=== PATIENT | male | born 1945 | race Caucasian/White ===

== ENCOUNTER 2025-06-25 18:16 | Inpatient (IN) | payer BC, OTHER ==
--- OUTSIDE RECORDS SUMMARY | 2025-06-25 18:31 | XMS REPORT | Continuity of Care Document ---
Author Name Unknown Address [address] [facility] [address] [place] [address] Organization [facility] [place] Address [address] [facility] 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 Role Phone Mik ANDREWS, Efren Villa Primary Care Physician JACK RIVAS Attending Clinician Unavailable ADDI VALENZUELA Attending Clinician Unavailable ODESSA LE Attending Clinician UnavailNarciso godwin Chi, MD Attending Clinician [phone] NARCISO MCCLAIN Attending Clinician Unavailable Bernadette Norton MD Attending Clinician + [phone] FAINA BRATON Attending Clinician UnavailMiki Cobian MD Attending Clinician [phone] Chaitanya Lewis MD Attending Clinician + [phone] Keyshawn ANDREWS PhD, Favian Attending Clinician [phone] Bret Newsome MD Attending Clinician [phone] Jack Rivas MD Attending Clinician [phone] Faina Barton MD Attending Clinician [phone] Rox Streeter MD Attending Clinician ROX STREETER Attending Clinician Marielena vailable Lab, Ang - Db Attending Clinician Unavailable Alirio Segundo MD Attending Clinician [phone] ALIRIO SEGUNDO Attending Clinician Unavailable Doctor Unassigned, Odum Attending Clinician U navailable Cox MD, Almita Attending Clinician [phone] Pob, Adc Lab Main Attending Clinician Kristen Faith MD Attending Clinician [phone] KRISTEN HUFF Attending Clinician ALMITA Rust Attending Clinician Unavailable CHAITANYA LEWIS Admitting Clinician BERNADETTE Simmons Admitting Clinician Tiny Norton MD, Bernadette Leon Admitting Clinician [phone] Chaitanya Lewis MD Admitting Clinician +- [phone] ALIRIO SEGUNDO Admitting Clinician Unavailable Payers Payer Name Policy Type Policy Number Effective Date Expirati on Date Source BCBS MEDICARE ADVANTAGE PPO Medicare [id number] 2024 00:00:00 [place] OUT OF STATE [id number] 2020 00:00:00 Problems Condition Name Condition Details Condition Category Status Onset Date Resolution Date Last Treatment Date Treating Clinician Comments Source 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 Disease Active 2023-09 00:00: 00 Shari Koenig 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 Disease Active 2023-09 00:00: 00 Shari Koenig Hemiparesi s affecting left side as late effect of stroke (CMS/HCC) Hemiparesi s affecting left side as late effect of stroke (CMS/HCC) Disease Active 2023-09 00:00: 00 Shari Koenig Neurogenic bowel Neurogenic bowel Disease Active 2023-09 00:00: 00 Shari Koenig Other abnormalit ies of gait and mobility Other abnormalit ies of gait and mobility Disease Active 2023-09 00:00: 00 Shari Koenig 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 Disease Active 2023-09 00:00: 00 Shari Koenig Other sleep disorders Other sleep disorders Disease Active 2023-09 00:00: 00 Shari Koenig Delirium Delirium Disease Active 2023-09 00:00: 00 Shari Koenig Dysphagia Dysphagia Disease Active 2023-09 00:00: 00 Shari Koenig Hyperlipid emia Hyperlipid emia Disease Active 2023-09 00:00: 00 Shari Koenig Primary hypertensi on Primary hypertensi on Disease Active 2023-09 00:00: 00 Shari Koenig Uncontroll ed type 2 diabetes mellitus with hyperglyce jayson Uncontroll ed type 2 diabetes mellitus with hyperglyce jayson Disease Active 2023-09 00:00: 00 Shari Koenig Diabetes mellitus Diabetes mellitus Disease Recurre nce 2023-09 00:00: 00 Shari Koenig 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 Disease Active 2023-09 00:00: 00 Shari Koenig Acute ischemic stroke Acute ischemic stroke Disease Active 2023-09 00:00: 00 Shari Koenig Cerebrovas cular accident (CVA) Cerebrovas cular accident (CVA) Disease Active 2023-09 00:00: 00 Shari Koenig Type 2 diabetes mellitus without complicati ons Type 2 diabetes mellitus without complicati ons Disease Active 11-18 00:00: 00 [facility] Mixed hyperlipid emia Mixed hyperlipid emia Disease Active [facility] Allergies, Adverse Reactions, Alerts Allergy Name Allergy Type Status Severity Reaction(s) Onset Date Inactive Date Treating Clinician Comments Source NO KNOWN ALLERGIE S Drug Class Active [facility] Social History Social Habit Start Date Stop Date Quantity Comments Source Gender identity Vinay rial [facility] History of tobacco use [facility] Sexual orientation [facility] History of Social function 2024-09-07 00:00:00 2024-09-07 00:00:00 [facility] Tobacco use and exposure 2024-09-05 00:00:00 2024-09-05 00:00:00 Smokeless tobacco non-user [facility] Alcohol intake 2023-03-24 00:00:00 2023-03-24 00:00:00 Ex-drinker (finding) [facility] Exposure to SARS-CoV-2 (event) 2023-01-01 00:00:00 2023-01-11 07:51:00 Not sure [facility] Cigarettes smoked current (pack per day) - Reported 2022-11-18 00:00:00 2022-11-18 00:00:00 [facility] Cigarette pack-years 2022-11-18 00:00:00 2022-11-18 00:00:00 [facility] Sex Assigned At 1945 00:00:00 1945 00:00:00 [facility] Smoking Status Start Date Stop Date Source Tobacco smoking consumption unknown [facility] c Ex-smoker 2024-09-05 00:00:00 2024-09-05 00:00:00 [facility] Medications Ordered Medication Name Filled Medication Name Start Date Stop Date Current Medication? Ordering Clinician Indication Dosage Frequency Signature (SIG) Comments Components Source mirtazapine 7.5 mg tablet 11-15 00:00: 00 Yes 1mg Gopal Medrano metformin 500 mg tablet 11-15 00:00: 00 Yes 1mg Gopal Medrano ipratropium 0.5 mg-albutero l 3 mg (2.5 mg base)/3 mL nebulizatio n soln 11-15 00:00: 00 Yes 3mg base)/3 mL Gopal Medrano losartan 50 mg tablet 11-15 00:00: 00 Yes 1mg Gopal Medrano atorvastati n 80 mg tablet 11-15 00:00: 00 Yes 1mg Gopal Medrano trazodone 50 mg tablet 3-05 00:00: 00 Yes 1mg Gopal Medrano sennosides 25 mg tablet -05 00:00: 00 Yes 1mg Gopal Medrano melatonin 3 MG tablet melatonin 3 MG tablet 1-15 00:00: 00 Yes 3mg 1 tablet by Per G Tube route at bedtime. Shari james [facility] insulin glargine (Lantus) 100 UNIT/ML injection insulin glargine (Lantus) 100 UNIT/ML injection 09-27 00:00: 00 09-27 23:59 :00 No 22U Inject 22 Units under the skin in the evening. Shari Koenig caffeine 200 MG caffeine 200 MG 09-27 00:00: 00 12-26 23:59 :00 No 100mg Take 0.5 tablets by mouth in the morning and 0.5 tablets at noon. Shari Koenig atorvastati n (Lipitor) 80 MG tablet atorvastati n (Lipitor) 80 MG tablet 09-27 00:00: 00 12-26 23:59 :00 No 80mg QD Take 1 tablet by mouth 1 time each day. Shari Koenig losartan (Cozaar) 50 MG tablet losartan (Cozaar) 50 MG tablet 09-27 00:00: 00 12-26 23:59 :00 No 75mg QD Take 1.5 tablets by mouth 1 time each day. Shari Koenig mirtazapine (Remeron) 7.5 MG tablet mirtazapine (Remeron) 7.5 MG tablet 09-27 00:00: 00 12-26 23:59 :00 No 7.5mg Take 1 tablet by mouth at bedtime. Shari Koenig polyethylen e glycol, PEG, 3350 (Miralax) 17 g packet polyethylen e glycol, PEG, 3350 (Miralax) 17 g packet 09-27 00:00: 00 12-26 23:59 :00 No 17g Q12H 17 g by Per G Tube route in the morning and 17 g in the evening. Shari Koenig ipratropium -albuterol (Duo-Neb) 0.5-2.5 mg/3 mL nebulizer solution ipratropium -albuterol (Duo-Neb) 0.5-2.5 mg/3 mL nebulizer solution 09-27 00:00: 00 12-26 23:59 :00 No 3mL Q6H Take 3 mL by nebulizati on every 6 hours if needed for wheezing. Shari Koenig modafinil (Provigil) 100 MG tablet modafinil (Provigil) 100 MG tablet 09-27 00:00: 00 10-27 23:59 :00 No [id number] 100mg Take 1 tablet by mouth in the morning and 1 tablet at noon. Shari Carvalho [facility] Aspirin Low Dose 81 MG chewable tablet Aspirin Low Dose 81 MG chewable tablet 09-27 00:00: 00 09-27 00:00 :00 No 324mg QD TAKE 4 TABLETS BY NASOGASTRI C ROUTE 1 TIME EACH DAY. Shari Carvalho [facility] aspirin 81 MG chewable tablet aspirin 81 MG chewable tablet 09-26 00:00: 00 09-27 00:00 :00 No 324mg QD 4 tablets by Nasogastri c route 1 time each day. Shari Carvalho [facility] caffeine 200 MG caffeine 200 MG 09-26 00:00: 00 09-27 00:00 :00 No 100mg Take 0.5 tablets by mouth in the morning and 0.5 tablets at noon. Shari Carvalho [facility] modafinil (Provigil) 100 MG tablet modafinil (Provigil) 100 MG tablet 09-26 00:00: 00 09-27 00:00 :00 No [id number] 100mg Take 1 tablet by mouth in the morning and 1 tablet at noon. Shari Carvalho [facility] losartan (Cozaar) 50 MG tablet losartan (Cozaar) 50 MG tablet 09-26 00:00: 00 09-27 00:00 :00 No 75mg QD Take 1.5 tablets by mouth 1 time each day. Shari Carvalho [facility] sennosides (Senokot) 8.6 MG tablet sennosides (Senokot) 8.6 MG tablet 09-25 00:00: 00 12-24 23:59 :00 No 8.6mg Take 1 tablet by mouth at bedtime. Shari Carvalho [facility] atorvastati n (Lipitor) 80 MG tablet atorvastati n (Lipitor) 80 MG tablet 09-25 00:00: 09-27 00:00 :00 No 80mg QD Take 1 tablet by mouth 1 time each day. Shari Koenig insulin glargine (Lantus) 100 UNIT/ML injection insulin glargine (Lantus) 100 UNIT/ML injection 09-25 00:00: 00 09-27 00:00 :00 No 22U Inject 22 Units under the skin in the evening. Shari Koenig mirtazapine (Remeron) 7.5 MG tablet mirtazapine (Remeron) 7.5 MG tablet 09-25 00:00: 00 09-27 00:00 :00 No 7.5mg Take 1 tablet by mouth at bedtime. Shari Carvalho Epic polyethylen e glycol, PEG, 3350 (Miralax) 17 g packet polyethylen e glycol, PEG, 3350 (Miralax) 17 g packet 09-25 00:00: 00 09-27 00:00 :00 No 17g Q12H 17 g by Per G Tube route in the morning and 17 g in the evening. Shari Koenig losartan (Cozaar) 25 MG tablet losartan (Cozaar) 25 MG tablet 09-25 00:00: 00 09-25 00:00 :00 No 75mg QD Take 3 tablets by mouth 1 time each day. Shari Koenig insulin lispro (Humalog, Admelog) injection 8 Units insulin lispro (Humalog, Admelog) injection 8 Units 09-20 08:00: 00 09-21 13:21 :59 No 137 8U 8 Units, Subcutaneo us, 3 times daily with meals, First dose (after last modificati on) on Wed09/20/24 at 0800, Please give pre-meal insulin after making sure he has atleast ate 50% of his meal as he is on 1:1 feeding , Indication s: Type 2 Diabetes Mellitus Shari Koenig insulin glargine (Lantus) pen 22 Units insulin glargine (Lantus) pen 22 Units 1- 18:00: 00 Yes 137 22U 22 Units, Subcutaneo us, Every evening, First dose (after last modificati on) on Wed09/19/24 at 1800, Indication s: Type 2 Diabetes Mellitus Shari Koenig modafinil (Provigil) tablet 100 mg modafinil (Provigil) tablet 100 mg 09-19 08:00: 00 Yes 100mg 100 mg, Oral, 2 times daily (04/24), First dose (after last modificati on) on Wed09/19/24 at 0800 Shari Koenig insulin glargine (Lantus) pen 25 Units insulin glargine (Lantus) pen 25 Units 09-18 18:00: 00 09-19 11:39 :37 No 137 25U 25 Units, Subcutaneo us, Every evening, First dose (after last modificati on) on Wed09/18/24 at 1800, Indication s: Type 2 Diabetes Mellitus Shari Koenig bisacodyl (Dulcolax) suppository 10 mg bisacodyl (Dulcolax) suppository 10 mg 09-15 18:00: 00 Yes 10mg 10 mg, Rectal, Every evening, First dose on Wed09/15/24 at 1800 Shari Koenig insulin lispro (Humalog, Admelog) injection 6 Units insulin lispro (Humalog, Admelog) injection 6 Units 09-15 17:00: 00 09-20 07:29 :12 No 137 6U 6 Units, Subcutaneo us, 3 times daily with meals, First dose (after last modificati on) on Wed09/15/24 at 1700, Please give pre-meal insulin after making sure he has atleast ate 50% of his meal as he is on 1:1 feeding , Indication s: Type 2 Diabetes Mellitus Shari Koenig caffeine tablet 100 mg caffeine tablet 100 mg 09-15 08:00: 00 Yes 100mg 100 mg, Oral, 2 times daily (04/24), First dose (after last modificati on) on Wed09/15/24 at 0800, Dose = mg of caffeine. (Order only half the usual caffeine citrate or caffeine-s odium benzoate dose) Shari Koenig mirtazapine (Remeron) tablet 15 mg mirtazapine (Remeron) tablet 15 mg 09-14 21:00: 00 Yes 15mg 15 mg, Oral, Nightly, First dose (after last modificati on) on Wed09/14/24 at 2100 Raymondyoanna jacob Carvalho [facility] insulin lispro (Humalog, Admelog) injection 8 Units insulin lispro (Humalog, Admelog) injection 8 Units 2023-09 08:00: 00 09-15 14:55 :48 No 137 8U 8 Units, Subcutaneo us, 3 times daily with meals, First dose (after last modificati on) on Wed09/11/24 at 0800, Please give pre-meal insulin after making sure he has atleast ate 50% of his meal as he is on 1:1 feeding , Indication s: Type 2 Diabetes Mellitus Raymondyoanna jacob Carvalho Epic insulin lispro (Humalog, Admelog) injection 7 Units insulin lispro (Humalog, Admelog) injection 7 Units 2023-09 12:00: 00 09-11 07:37 :18 No 137 7U 7 Units, Subcutaneo us, 3 times daily with meals, First dose (after last modificati on) on Wed09/10/24 at 1200, Please give pre-meal insulin after making sure he has atleast ate 50% of his meal as he is on 1:1 feeding , Indication s: Type 2 Diabetes Mellitus Raymondyoanna jacob Carvalho Epic insulin lispro (Humalog, Admelog) injection 8 Units insulin lispro (Humalog, Admelog) injection 8 Units 2023-09 08:00: 00 09-10 08:26 :42 No 137 8U 8 Units, Subcutaneo us, 3 times daily with meals, First dose (after last modificati on) on Wed09/09/24 at 0800, Please give pre-meal insulin after making sure he has atleast ate 50% of his meal as he is on 1:1 feeding , Indication s: Type 2 Diabetes Mellitus Shari Carvalho Epic insulin lispro (Humalog, Admelog) injection 5 Units insulin lispro (Humalog, Admelog) injection 5 Units 2023-09 17:00: 00 09-09 07:49 :08 No 137 5U 5 Units, Subcutaneo us, 3 times daily with meals, First dose (after last modificati on) on Wed09/08/24 at 1700, Please give pre-meal insulin after making sure he has atleast ate 50% of his meal as he is on 1:1 feeding , Indication s: Type 2 Diabetes Mellitus Shari Carvalho [facility] Boost Glucose Control liquid 237 mL Boost Glucose Control liquid 237 mL 2023-09 17:00: 00 Yes 1{conta iner} 237 mL (1 Container) , Oral, 3 times daily with meals, First dose on Wed09/07/24 at 1700 Shari Carvalho [facility] insulin lispro (Humalog, Admelog) injection 8 Units insulin lispro (Humalog, Admelog) injection 8 Units 2023-09 12:00: 00 09-08 14:00 :24 No 137 8U 8 Units, Subcutaneo us, 3 times daily with meals, First dose (after last modificati on) on Wed09/07/24 at 1200, Please give pre-meal insulin after making sure he has atleast ate 50% of his meal as he is on 1:1 feeding , Indication s: Type 2 Diabetes Mellitus Shari Carvalho [facility] losartan (Cozaar) tablet 75 mg losartan (Cozaar) tablet 75 mg 2023-09 17:00: 00 Yes 75mg QD 75 mg, Oral, Daily, First dose (after last modificati on) on Wed09/06/24 at 1700, HOLD for SBP<120 Shari Carvalho [facility] atorvastati n (Lipitor) tablet 80 mg atorvastati n (Lipitor) tablet 80 mg 2023-09 08:30: 00 Yes 80mg QD 80 mg, Oral, Daily, First dose (after last modificati on) on Wed09/06/24 at 0830 Shari Carvalho [facility] aspirin chewable tablet 324 mg aspirin chewable tablet 324 mg 2023-09 08:30: 00 Yes 324mg QD 324 mg, Nasogastri c, Daily, First dose (after last modificati on) on Wed09/06/24 at 0830, Crush tablet Sahri Koenig amLODIPine (Norvasc) tablet 10 mg amLODIPine (Norvasc) tablet 10 mg 2023-09 08:30: 00 Yes 10mg QD 10 mg, Oral, Daily, First dose (after last modificati on) on Wed09/06/24 at 0830, Hold for BP less than 110/60 mg , On hold since Wed09/19/2024 at 1129 until manually unheld Shari Koenig modafinil (Provigil) tablet 100 mg modafinil (Provigil) tablet 100 mg 2023-09 08:30: 00 09-18 20:38 :05 No 100mg QD 100 mg, Oral, Daily, First dose (after last modificati on) on Wed09/06/24 at 0830 Shrai Koenig caffeine tablet 100 mg caffeine tablet 100 mg 2023-09 08:30: 00 09-14 18:55 :28 No 100mg QD 100 mg, Oral, Daily, First dose (after last modificati on) on Wed09/06/24 at 0830, Dose = mg of caffeine. (Order only half the usual caffeine citrate or caffeine-s odium benzoate dose) Shari Koenig clopidogrel (Plavix) tablet 75 mg clopidogrel (Plavix) tablet 75 mg 2023-09 08:30: 00 09-09 08:27 :00 No 1737 75mg QD 75 mg, Nasogastri c, Daily, First dose (after last modificati on) on Wed09/06/24 at 0830, For 4 doses, Crush tablet, Indication s: Cerebrovas cular Accident Shari Koenig insulin lispro (Humalog, Admelog) injection 8 Units insulin lispro (Humalog, Admelog) injection 8 Units 2023-09 08:00: 00 09-07 10:20 :22 No 8U 8 Units, Subcutaneo us, 3 times daily with meals, First dose (after last modificati on) on Wed09/06/24 at 0800 Shari Koenig caffeine 200 MG caffeine 200 MG 2023-09 00:00: 00 09-27 00:00 :00 No 100mg QD Take 0.5 tablets by mouth 1 time each day. Shari Koenig heparin injection 5,000 Units heparin injection 5,000 Units 2023-09 22:00: 00 Yes 5000U Q8H 5,000 Units, Subcutaneo us, Every 8 hours, First dose (after last modificati on) on Wed09/05/24 at 2200 Shari Koenig sennosides (Senokot) tablet 8.6 mg sennosides (Senokot) tablet 8.6 mg 2023-09 21:00: 00 Yes 1{tbl} 8.6 mg (1 tablet), Oral, Nightly, First dose (after last modificati on) on Wed09/05/24 at 2100 Shari Koenig mirtazapine (Remeron) tablet 7.5 mg mirtazapine (Remeron) tablet 7.5 mg 2023-09 21:00: 00 09-14 16:46 :33 No 7.5mg 7.5 mg, Oral, Nightly, First dose (after last modificati on) on Wed09/05/24 at 2100 Shari Koenig melatonin tablet 3 mg melatonin tablet 3 mg 2023-09 20:00: 00 Yes 3mg 3 mg, Per G Tube, Nightly, First dose (after last modificati on) on Wed09/05/24 at 2000 Shari Koenig ipratropium -albuterol (Duo-Neb) 0.5-2.5 mg/3 mL nebulizer solution 3 mL ipratropium -albuterol (Duo-Neb) 0.5-2.5 mg/3 mL nebulizer solution 3 mL 2023-09 20:00: 00 Yes 3mL Q.25D 3 mL, Nebulizati on, Every 6 hours RT, First dose (after last modificati on) on Wed09/05/24 at 2000 Shari Koenig polyethylen e glycol (PEG) 3350 (Miralax) packet 17 g polyethylen e glycol (PEG) 3350 (Miralax) packet 17 g 2023-09 19:15: 00 Yes 17g Q12H 17 g, Per G Tube, Every 12 hours, First dose (after last modificati on) on Wed09/05/24 at 1915, Dissolve 17 g in 120 to 240 mL (4 to 8 ounces) of beverage. Shari Carvalho Epic Docusate Sodium oral liquid 100 mg Docusate Sodium oral liquid 100 mg 2023-09 19:15: 00 Yes 100mg Q12H 100 mg, Per G Tube, Every 12 hours, First dose (after last modificati on) on Wed09/05/24 at 191, OK to hold if loose stool Shari Koenig insulin glargine (Lantus) pen 30 Units insulin glargine (Lantus) pen 30 Units 2023-09 18:00: 00 09-18 09:37 :16 No 137 30U 30 Units, Subcutaneo us, Every evening, First dose (after last modificati on) on Wed09/05/24 at 1800, Indication s: Type 2 Diabetes Mellitus Shari Carvalho [facility] insulin lispro (HumaLOG, Admelog) injection 3-12 Units insulin lispro (HumaLOG, Admelog) injection 3-12 Units 2023-09 17:46: 34 Yes 137 3U [id number] 3D 3-12 Units, Subcutaneo us, 3 times daily PRN, high blood sugar, with meals, Starting on Wed09/05/24 at 1746, For BG < 70, follow hypoglycem ia protocol and notify ordering provider. If patient can eat or drink, give oral carbohydra te as ordered per hypoglycem ia protocol. If patient NPO, give dextrose 50 % IV as ordered per hypoglycem ia protocol. If NPO and no IV access, give glucagon IM as ordered per hypoglycem ia protocol. Check BG every 15 minutes and repeat treatment if continued BG < 80., Correction Insulin Dosing: (DO NOT CHANGE DEFAULT SELECTION/ VALUES): Medium, BG < 70 instructio ns: Follow Hypoglycem ia Orders, BG 70-149 instructio ns: No Dose Needed, BG 150-199: 3, BG 200-249: 6, BG 250-299: 9, BG >/= 300: 12, BG > 300 instructio ns: Contact Provider, Indication s: Type 2 Diabetes Mellitus Shari Koenig glucagon injection 1 mg glucagon injection 1 mg 2023-09 17:46: 06 Yes 1mg 1 mg, Intramuscu lar, As needed, For BG < 70 mg/dL if no IV access and patient is either Unconsciou s, unable to swallow or npo, Starting on Wed09/05/24 at 1746, For BG < 70 mg/dL if no IV access and patient is either Unconsciou s, unable to swallow or npo and notify MD. Shari Koenig dextrose 50 % solution 12.5 g dextrose 50 % solution 12.5 g 2023-09 17:46: 06 Yes 244 12.5g 12.5 g, Intravenou s, As needed, low blood sugar, if Blood Glucose 51- 69 mg/dL, Starting on Wed09/05/24 at 1746, For BG 51-69 mg/dL and patient UNCONSCIOU S OR UNABLE TO SWALLOW OR NPO: Give 25 mL of D50W IV push and notify MD., Indication s: Hypoglycem ia Shari Koenig bisacodyl (Dulcolax) suppository 10 mg bisacodyl (Dulcolax) suppository 10 mg 2023-09 17:45: 25 Yes 10mg QD 10 mg, Rectal, Nightly PRN, constipati on, Starting on Wed09/05/24 at 1745 Shari Koenig magnesium hydroxide (Milk of Magnesia) 400 MG/5ML suspension 30 mL magnesium hydroxide (Milk of Magnesia) 400 MG/5ML suspension 30 mL 2023-09 17:45: 25 Yes 30mL Q24H 30 mL, Oral, Daily PRN, constipati on, Starting on Wed09/05/24 at 1745, Follow dose with 8 oz of water. Shari Koenig levETIRAcet am (Keppra) injection 1,500 mg levETIRAcet am (Keppra) injection 1,500 mg 2023-09 17:45: 24 Yes 1500mg Shari Koenig midazolam (Versed) injection 5 mg midazolam (Versed) injection 5 mg 2023-09 17:45: 24 Yes 5mg Shari Carvalho [facility] sodium chloride (NS) 0.9 % flush 10 mL sodium chloride (NS) 0.9 % flush 10 mL 2023-09 17:45: 24 Yes 10mL Shari Carvalho [facility] aspirin EC 81 MG EC tablet aspirin EC 81 MG EC tablet 2023-09 17:06: 09 09-05 00:00 :00 No 81mg QD Take 81 mg by mouth 1 time each day. Shari Carvalho [facility] hydroCHLORO thiazide (HYDRODiuri l) 25 MG tablet hydroCHLORO thiazide (HYDRODiuri l) 25 MG tablet 2023-09 17:06: 09 09-05 00:00 :00 No 25mg QD Take 25 mg by mouth 1 time each day. Shari Carvalho [facility] insulin glargine (Lantus) 100 UNIT/ML injection insulin glargine (Lantus) 100 UNIT/ML injection 2023-09 17:06: 09 09-05 00:00 :00 No 25U QD Inject 25 Units under the skin 1 time each day. Shari Carvalho [facility] metFORMIN (Glucophage ) 500 MG tablet metFORMIN (Glucophage ) 500 MG tablet 2023-09 17:06: 09 09-05 00:00 :00 No 500mg Take 500 mg by mouth in the morning and 500 mg at noon and 500 mg in the evening. Take with meals. Shari Carvalho [facility] metFORMIN, OSM, (Fortamet) 500 MG 24 hr tablet metFORMIN, OSM, (Fortamet) 500 MG 24 hr tablet 2023-09 17:06: 07 08-25 00:00 :00 No 500mg Take 500 mg by mouth in the evening. Take with meals.. Do not crush, chew, or split. Shari Koenig insulin lispro (Humalog, Admelog) injection 8 Units insulin lispro (Humalog, Admelog) injection 8 Units 2023-09 08:00: 00 Yes 8U 8 Units, Subcutaneo us, 3 times daily with meals, First dose on Wed09/05/24 at 0800 Shari Koenig clopidogrel (Plavix) 75 MG tablet clopidogrel (Plavix) 75 MG tablet 2023-09 00:00: 00 09-27 00:00 :00 No 75mg QD Take 1 tablet by mouth 1 time each day. Shari Koenig amLODIPine (Norvasc) 10 MG tablet amLODIPine (Norvasc) 10 MG tablet 2023-09 00:00: 00 09-27 00:00 :00 No 10mg QD Take 1 tablet by mouth 1 time each day. Shari Koenig aspirin 81 MG chewable tablet aspirin 81 MG chewable tablet 2023-09 00:00: 00 09-27 00:00 :00 No 324mg QD 4 tablets by Nasogastri c route 1 time each day. Shari Koenig melatonin 3 MG tablet melatonin 3 MG tablet 2023-09 00:00: 00 09-27 00:00 :00 No 3mg 1 tablet by Per G Tube route at bedtime. Shari Koenig modafinil (Provigil) 100 MG tablet modafinil (Provigil) 100 MG tablet 2023-09 00:00: 00 09-27 00:00 :00 No [id number] 100mg QD Take 1 tablet by mouth 1 time each day. Shari Koenig atorvastati n (Lipitor) 80 MG tablet atorvastati n (Lipitor) 80 MG tablet 2023-09 00:00: 00 09-25 00:00 :00 No 80mg QD Take 1 tablet by mouth 1 time each day. Shari Koenig mirtazapine (Remeron) 7.5 MG tablet mirtazapine (Remeron) 7.5 MG tablet 2023-09 00:00: 00 09-25 00:00 :00 No 7.5mg Take 1 tablet by mouth at bedtime. Shari Koenig polyethylen e glycol, PEG, 3350 (Miralax) 17 g packet polyethylen e glycol, PEG, 3350 (Miralax) 17 g packet 2024-1 2-24 00:00: 00 09-25 00:00 :00 No 17g Q12H 17 g by Per G Tube route in the morning and 17 g in the evening. Do all this for 3 days. Raymondyoanna jacob Deven Epic insulin glargine (Lantus) 100 UNIT/ML injection insulin glargine (Lantus) 100 UNIT/ML injection 2023-09 00:00: 00 09-25 00:00 :00 No 30U Inject 30 Units under the skin in the evening. Raymondyoanna jacob RossSophia Epic insulin glargine (Lantus) 100 UNIT/ML injection insulin glargine (Lantus) 100 UNIT/ML injection 2023-09 00:00: 00 09-05 00:00 :00 No 36U Inject 36 Units under the skin in the evening. Shari Carvalho Epic insulin lispro (HumaLOG, Admelog) 100 unit/ml injection insulin lispro (HumaLOG, Admelog) 100 unit/ml injection 2023-09 00:00: 00 09-05 00:00 :00 No 2U [id number] 3D Inject 2-8 Units under the skin 3 times a day as needed for high blood sugar (with meals). See After Visit Summary for instructio ns on how to take your insulin. Raymondyoanna jacob Deven Epic insulin lispro (Humalog, Admelog) 100 UNIT/ML injection insulin lispro (Humalog, Admelog) 100 UNIT/ML injection 2023-09 00:00: 00 09-05 00:00 :00 No 8U Inject 8 Units under the skin in the morning and 8 Units at noon and 8 Units in the evening. Inject with meals. Shari Carvalho Epic insulin glargine (Lantus) injection 36 Units insulin glargine (Lantus) injection 36 Units 2023-09 18:00: 00 Yes 36U 36 Units, Subcutaneo us, Every evening, First dose (after last modificati on) on Wed09/04/24 at 1800 Shari Carvalho Epic dextrose 50 % solution 12.5 g dextrose 50 % solution 12.5 g 2023-09 17:07: 56 Yes 12.5g 12.5 g, Intravenou s, As needed, low blood sugar, if Blood Glucose 51- 69 mg/dL, Starting on Wed09/04/24 at 1707, For BG 51-69 mg/dL and patient UNCONSCIOU S OR UNABLE TO SWALLOW OR NPO: Give 25 mL of D50W IV push and notify MD. Shari Carvalho Epic insulin lispro (HumaLOG, Admelog) injection 2-8 Units insulin lispro (HumaLOG, Admelog) injection 2-8 Units 2023-09 17:07: 36 Yes 2U [id number] 3D 2-8 Units, Subcutaneo us, 3 times daily PRN, high blood sugar, with meals, Starting on Wed09/04/24 at 1707, For BG < 70, follow hypoglycem ia protocol and notify ordering provider. If patient can eat or drink, give oral carbohydra te as ordered per hypoglycem ia protocol. If patient NPO, give dextrose 50 % IV as ordered per hypoglycem ia protocol. If NPO and no IV access, give glucagon IM as ordered per hypoglycem ia protocol. Check BG every 15 minutes and repeat treatment if continued BG < 80., Correction Insulin Dosing: (DO NOT CHANGE DEFAULT SELECTION/ VALUES): Starting, BG < 70 instructio ns: Follow Hypoglycem ia Orders, BG 70-149 instructio ns: No Dose Needed, BG 150-199: 2, BG 200-249: 4, BG 250-299: 6, BG >/= 300: 8, BG > 300 instructio ns: Contact Provider Sahri Koenig mirtazapine (Remeron) tablet 7.5 mg mirtazapine (Remeron) tablet 7.5 mg 2023-09 21:00: 00 Yes 7.5mg 7.5 mg, Oral, Nightly, First dose on 09/03/24 at 2100 Shari Carvalho Epic insulin glargine (Lantus) injection 48 Units insulin glargine (Lantus) injection 48 Units 2023-09 18:00: 00 09-04 11:43 :36 No 48U 48 Units, Subcutaneo us, Every evening, First dose (after last modificati on) on 09/03/24 at 1800 Shari Koenig insulin lispro (Humalog, Admelog) injection 18 Units insulin lispro (Humalog, Admelog) injection 18 Units 2023-09 17:00: 00 09-04 11:44 :13 No 18U 18 Units, Subcutaneo us, 3 times daily with meals, First dose (after last modificati on) on 09/03/24 at 1700 Shari Koenig aspirin 81 MG chewable tablet aspirin 81 MG chewable tablet 2023-09 00:00: 00 09-05 00:00 :00 No 324mg QD 4 tablets by Nasogastri c route 1 time each day. Shari Koenig amLODIPine (Norvasc) 10 MG tablet amLODIPine (Norvasc) 10 MG tablet 2023-09 00:00: 00 09-05 00:00 :00 No 10mg QD Take 1 tablet by mouth 1 time each day. Shari Koenig atorvastati n (Lipitor) 80 MG tablet atorvastati n (Lipitor) 80 MG tablet 2023-09 00:00: 00 09-05 00:00 :00 No 80mg QD Take 1 tablet by mouth 1 time each day. Shari Koenig clopidogrel (Plavix) 75 MG tablet clopidogrel (Plavix) 75 MG tablet 2023-09 00:00: 00 09-05 00:00 :00 No 75mg QD Take 1 tablet by mouth 1 time each day. Shari Koenig modafinil (Provigil) 100 MG tablet modafinil (Provigil) 100 MG tablet 2023-09 00:00: 00 09-05 00:00 :00 No [id number] 100mg QD Take 1 tablet by mouth 1 time each day. Shari Koenig mirtazapine (Remeron) 7.5 MG tablet mirtazapine (Remeron) 7.5 MG tablet 2023-09 00:00: 00 09-05 00:00 :00 No 7.5mg Take 1 tablet by mouth at bedtime. Shari Carvalho Epic insulin glargine (Lantus) 100 UNIT/ML injection insulin glargine (Lantus) 100 UNIT/ML injection 2023-09 00:00: 00 09-05 00:00 :00 No 48U Inject 48 Units under the skin in the evening. Shari Carvalho Epic insulin lispro (Humalog, Admelog) 100 UNIT/ML injection insulin lispro (Humalog, Admelog) 100 UNIT/ML injection 2023-09 00:00: 00 09-05 00:00 :00 No 18U Inject 18 Units under the skin in the morning and 18 Units at noon and 18 Units in the evening. Inject with meals. Shari Carvalho Epic insulin glargine (Lantus) 100 UNIT/ML injection insulin glargine (Lantus) 100 UNIT/ML injection 2023-09 00:00: 00 09-03 00:00 :00 No 44U Inject 44 Units under the skin in the evening. Shari Carvalho Epic insulin lispro (Humalog, Admelog) 100 UNIT/ML injection insulin lispro (Humalog, Admelog) 100 UNIT/ML injection 2023-09 00:00: 00 09-03 00:00 :00 No 14U Inject 14 Units under the skin in the morning and 14 Units at noon and 14 Units in the evening. Inject with meals. Shari Carvalho [facility] caffeine half tablet 100 mg caffeine half tablet 100 mg 2023-09 09:00: 00 Yes 100mg QD 100 mg, Oral, Daily, First dose on 09/02/24 at 0900, Dose = mg of caffeine. (Order only half the usual caffeine citrate or caffeine-s odium benzoate dose) Shari Koenig losartan (Cozaar) 25 MG tablet losartan (Cozaar) 25 MG tablet 2023-09 00:00: 00 09-25 00:00 :00 No 75mg QD Take 3 tablets by mouth 1 time each day. Shari Carvalho Epic polyethylen e glycol, PEG, 3350 (Miralax) 17 g packet polyethylen e glycol, PEG, 3350 (Miralax) 17 g packet 2023-09 00:00: 00 09-05 00:00 :00 No 17g Q12H 17 g by Per G Tube route in the morning and 17 g in the evening. Do all this for 3 days. Shari Koenig insulin glargine (Lantus) 100 UNIT/ML injection insulin glargine (Lantus) 100 UNIT/ML injection 2023-09 00:00: 00 09-03 00:00 :00 No 40U Inject 40 Units under the skin in the evening. Shari Koenig insulin lispro (Humalog, Admelog) 100 UNIT/ML injection insulin lispro (Humalog, Admelog) 100 UNIT/ML injection 2023-09 00:00: 00 09-03 00:00 :00 No 10U Inject 10 Units under the skin in the morning and 10 Units at noon and 10 Units in the evening. Inject with meals. Shari Koenig QUEtiapine (SEROquel) half tablet 12.5 mg QUEtiapine (SEROquel) half tablet 12.5 mg 2023-09 21:00: 00 09-02 12:54 :46 No 12.5mg 12.5 mg, Oral, Nightly, First dose (after last modificati on) on Wed09/01/24 at 2100, If ordered by enteral tube route, hold tube feedings for 30 minutes before administra tion; flush with 25 mL of sterile water. After administra tion of this medication , follow with a 50 mL flush of sterile water. Restart tube feedings after drug administra tion as ordered. Shari Koenig melatonin tablet 3 mg melatonin tablet 3 mg 2023-09 20:00: 00 Yes 3mg 3 mg, Per G Tube, Nightly, First dose (after last modificati on) on Wed09/01/24 at 2000 Shari Koenig iohexol (OMNIPaque) 350 MG/ML injection 70 mL iohexol (OMNIPaque) 350 MG/ML injection 70 mL 2023-09 17:16: 03 08-31 17:16 :00 No 70mL 70 mL, Intravenou s, Once in imaging, Starting on Wed08/31/24 at 1716, For 1 dose Shari Koenig clopidogrel (Plavix) tablet 75 mg clopidogrel (Plavix) tablet 75 mg 2023-09 15:43: 47 Yes 75mg QD 75 mg, Nasogastri c, Daily, First dose (after last modificati on) on Wed08/31/24 at 1545, Crush tablet Shari Koenig Ensure Enlive liquid 1 Container Ensure Enlive liquid 1 Container 2023-09 10:45: 00 Yes 1{conta iner} 1 Container, Oral, 3 times daily with meals, First dose on Wed08/31/24 at 1045 Shari Koenig QUEtiapine (SEROquel) half tablet 12.5 mg QUEtiapine (SEROquel) half tablet 12.5 mg 2023-09 07:30: 00 Yes 12.5mg 12.5 mg, Oral, Daily before breakfast, First dose on Wed08/31/24 at 0730, If ordered by enteral tube route, hold tube feedings for 30 minutes before administra tion; flush with 25 mL of sterile water. After administra tion of this medication , follow with a 50 mL flush of sterile water. Restart tube feedings after drug administra tion as ordered., On hold since Wed09/01/2024 at 0650 until manually unheld Shari Koenig sodium chloride 0.9 % bolus 500 mL sodium chloride 0.9 % bolus 500 mL 2023-09 03:45: 00 08-31 04:53 :00 No 500mL 500 mL, Intravenou s, at 500 mL/hr, Administer over 1 Hours, Once, On Wed08/31/24 at 0345, For 1 dose Shari Koenig acetaminoph en (Tylenol) suppository 650 mg acetaminoph en (Tylenol) suppository 650 mg 2023-09 00:12: 41 Yes 650mg Q6H 650 mg, Rectal, Every 6 hours PRN, mild pain (1-3), fever, Starting on Wed08/31/24 at 0012 Shari Koenig QUEtiapine (SEROquel) tablet 25 mg QUEtiapine (SEROquel) tablet 25 mg 2023-09 21:00: 00 09-01 15:56 :07 No 25mg 25 mg, Oral, Nightly, First dose on Wed08/30/24 at 2100 Shari Koenig QUEtiapine (SEROquel) half tablet 12.5 mg QUEtiapine (SEROquel) half tablet 12.5 mg 2023-09 11:10: 00 08-30 13:15 :00 No 12mg 12.5 mg (rounded from 12 mg), Oral, Once, On Wed08/30/24 at 1115, For 1 dose, If ordered by enteral tube route, hold tube feedings for 30 minutes before administra tion; flush with 25 mL of sterile water. After administra tion of this medication , follow with a 50 mL flush of sterile water. Restart tube feedings after drug administra tion as ordered. Shari Koenig modafinil (Provigil) tablet 100 mg modafinil (Provigil) tablet 100 mg 2023-09 09:00: 00 Yes 100mg QD 100 mg, Oral, Daily, First dose on Wed08/30/24 at 0900 Shari Koenig ipratropium -albuterol (Duo-Neb) 0.5-2.5 mg/3 mL nebulizer solution 3 mL ipratropium -albuterol (Duo-Neb) 0.5-2.5 mg/3 mL nebulizer solution 3 mL 2023-09 22:00: 00 Yes 3mL Q.25D 3 mL, Nebulizati on, Every 6 hours RT, First dose (after last modificati on) on Wed08/29/24 at 2200 Shari Koenig melatonin tablet 10 mg melatonin tablet 10 mg 2023-09 20:00: 00 09-01 15:56 :07 No 10mg 10 mg, Per G Tube, Nightly, First dose (after last modificati on) on Wed08/29/24 at 2000 Shari Koenig dextrose 5 % and sodium chloride 0.9 % infusion dextrose 5 % and sodium chloride 0.9 % infusion 2023-09 01:30: 00 09-04 12:51 :28 No 75mL/h 75 mL/hr, Intravenou s, Continuous , Starting on Wed08/29/24 at 0130 Shari Koenig losartan (Cozaar) tablet 75 mg losartan (Cozaar) tablet 75 mg 2023-09 17:00: 00 Yes 75mg QD 75 mg, Oral, Daily, First dose (after last modificati on) on Wed08/28/24 at 1700, HOLD for SBP<110 Shari Koenig losartan (Cozaar) tablet 25 mg losartan (Cozaar) tablet 25 mg 2023-09 11:15: 00 Yes 25mg 25 mg, Oral, Once, On Wed08/28/24 at 1115, For 1 dose Shari Koenig labetalol injection 10 mg labetalol injection 10 mg 2023-09 12:49: 40 Yes 10mg 10 mg, Intravenou s, Every 10 min PRN, high blood pressure, Starting on Wed08/27/24 at 1249, For sBP>180 or dBP>105 Notify MD after 1 dose Shari Koenig losartan (Cozaar) tablet 50 mg losartan (Cozaar) tablet 50 mg 2023-09 17:00: 00 08-28 11:09 :16 No 50mg QD 50 mg, Oral, Daily, First dose (after last modificati on) on Wed08/26/24 at 1700, HOLD for SBP<110 Shari Koenig aspirin chewable tablet 324 mg aspirin chewable tablet 324 mg 2023-09 09:00: 00 Yes 324mg QD 324 mg, Nasogastri c, Daily, First dose (after last modificati on) on Wed08/26/24 at 0900, Crush tablet Shari Koenig famotidine (Pepcid) tablet 20 mg famotidine (Pepcid) tablet 20 mg 2023-09- 21:00: 00 08-28 11:10 :48 No 20mg Q.5D 20 mg, Nasogastri c, Every 12 hours scheduled, First dose on Wed08/25/24 at 2100 Shari Koenig amLODIPine (Norvasc) tablet 10 mg amLODIPine (Norvasc) tablet 10 mg 2023-09 09:00: 00 Yes 10mg QD 10 mg, Oral, Daily, First dose (after last modificati on) on Wed08/25/24 at 0900 Shari Koenig magnesium sulfate in D5W IVPB 1 g magnesium sulfate in D5W IVPB 1 g 2023-09 07:15: 00 08-25 09:47 :00 No 1g 1 g, Intravenou s, at 100 mL/hr, Administer over 1 Hours, Once, On Wed08/25/24 at 0715, For 1 dose Shari Koenig cefTRIAXone (Rocephin) 1 g in sterile water injection cefTRIAXone (Rocephin) 1 g in sterile water injection 2023-09 21:45: 00 08-27 22:40 :00 No 1g 1 g, Intravenou s, Administer over 5 Minutes, Every 24 hours, First dose on Wed08/23/24 at 2145, For 5 days, Reconstitu te vial with 10 mL sterile water for injection. Prepare dose at bedside immediatel y prior to administra tion. Reconstitu tion: Shake immediatel y and vigorously . Withdraw entire contents and give IV push slowly over specified time., Suspected Indication (Select all that apply): Pneumonia Shari Koenig losartan (Cozaar) tablet 50 mg losartan (Cozaar) tablet 50 mg 2023-09 04:30: 00 08-25 10:04 :02 No 50mg QD 50 mg, Oral, Daily, First dose (after last modificati on) on Wed08/23/24 at 0430, HOLD for SBP<110 Shari Koenig amLODIPine (Norvasc) tablet 5 mg amLODIPine (Norvasc) tablet 5 mg 2023-09 02:00: 00 08-24 17:31 :05 No 5mg QD 5 mg, Oral, Daily, First dose on Wed08/23/24 at 0200 Shari Koenig insulin NPH-insulin regular (HumuLIN, NovoLIN) (70-30) 100 UNIT/ML injection 15 Units insulin NPH-insulin regular (HumuLIN, NovoLIN) (70-30) 100 UNIT/ML injection 15 Units 2023-0910 22:00: 00 09-02 13:19 :56 No 15U Q6H 15 Units, Subcutaneo us, Every 6 hours, First dose (after last modificati on) on Wed08/22/24 at 2200 Memyoanna Rossann Epic melatonin tablet 5 mg melatonin tablet 5 mg 2023-09 21:00: 22 08-28 11:12 :08 No 5mg QD 5 mg, Per G Tube, Nightly PRN, sleep, Starting on Wed08/22/24 at 2100 Memyoanna Rossann Epic losartan (Cozaar) tablet 25 mg losartan (Cozaar) tablet 25 mg 2023-09 20:45: 00 Yes 25mg 25 mg, Per G Tube, Once, On Wed08/22/24 at 2045, For 1 dose Shari Rossann Epic insulin NPH-insulin regular (HumuLIN, NovoLIN) (70-30) 100 UNIT/ML injection 11 Units insulin NPH-insulin regular (HumuLIN, NovoLIN) (70-30) 100 UNIT/ML injection 11 Units 2023-09 10:00: 00 08-22 17:54 :26 No 11U Q6H 11 Units, Subcutaneo us, Every 6 hours, First dose (after last modificati on) on Wed08/22/24 at 1000 Shari Rossann Epic losartan (Cozaar) tablet 25 mg losartan (Cozaar) tablet 25 mg 2023-09 04:15: 00 Yes 25mg 25 mg, Per G Tube, Once, On Wed08/22/24 at 0415, For 1 dose Shari Carvalho Epic melatonin tablet 3 mg melatonin tablet 3 mg 2023-09 20:01: 49 08-22 21:00 :51 No 3mg QD 3 mg, Oral, Nightly PRN, sleep, Starting on Wed08/21/24 at 2001 Memyoanna Carvalho Epic insulin NPH-insulin regular (HumuLIN, NovoLIN) (70-30) 100 UNIT/ML injection 7 Units insulin NPH-insulin regular (HumuLIN, NovoLIN) (70-30) 100 UNIT/ML injection 7 Units 2023-09 16:00: 00 08-22 06:53 :41 No 7U Q6H 7 Units, Subcutaneo us, Every 6 hours, First dose (after last modificati on) on Wed08/21/24 at 1600 Shari Koenig Fibersource HN liquid Fibersource HN liquid 2023-09 11:30: 00 Yes Nasogastri c, at 80 mL/hr, Continuous , Starting on Wed08/21/24 at 1130, Administer enteral tube feeding as follows: Standard Progressio n: Initiate at 20 mL/hr and increase by 20 mL/hr evry 4 hours. Refer to the Rate field for Goal Rate , On hold since Wed09/02/2024 at 1144 until manually unheld Shari Koenig insulin NPH-insulin regular (HumuLIN, NovoLIN) (70-30) 100 UNIT/ML injection 4 Units insulin NPH-insulin regular (HumuLIN, NovoLIN) (70-30) 100 UNIT/ML injection 4 Units 2023-09 10:00: 00 08-21 14:39 :46 No 4U Q6H 4 Units, Subcutaneo us, Every 6 hours, First dose (after last modificati on) on Wed08/21/24 at 1000 Shari Koenig QUEtiapine (SEROquel) tablet 25 mg QUEtiapine (SEROquel) tablet 25 mg 2023-09 16:00: 00 08-20 15:26 :00 No 25mg 25 mg, Nasogastri c, Once, On Wed08/20/24 at 1600, For 1 dose, Crush tablet Shari Koenig heparin injection 5,000 Units heparin injection 5,000 Units 2023-09 14:00: 00 Yes 5000U Q8H 5,000 Units, Subcutaneo us, Every 8 hours, First dose on Wed08/20/24 at 1400 Shari Koenig clopidogrel (Plavix) tablet 75 mg clopidogrel (Plavix) tablet 75 mg 2023-09 14:00: 00 08-31 15:43 :55 No 75mg QD 75 mg, Nasogastri c, Daily, First dose on Wed08/20/24 at 1400, Crush tablet Shari Koenig aspirin chewable tablet 81 mg aspirin chewable tablet 81 mg 2023-09 14:00: 00 08-25 15:47 :52 No 81mg QD 81 mg, Nasogastri c, Daily, First dose on Wed08/20/24 at 1400, Crush tablet Raymondyoanna Koenig LORazepam (Ativan) injection 0.5 mg LORazepam (Ativan) injection 0.5 mg 2023-09 07:51: 18 Yes .5mg Q4H 0.5 mg, Intravenou s, Every 4 hours PRN, anxiety, Starting on Wed08/20/24 at 0751 Shari Koenig insulin lispro (HumaLOG, Admelog) injection 4-16 Units [id number] 2-08 05:45: 01 09-04 13:19 :02 No 4U Q6H 4-16 Units, Subcutaneo us, Every 6 hours PRN, high blood sugar, Starting on Wed08/20/24 at 0545, For BG < 70, follow hypoglycem ia protocol and notify ordering provider. If patient can eat or drink, give oral carbohydra te as ordered per hypoglycem ia protocol. If patient NPO, give dextrose 50 % IV as ordered per hypoglycem ia protocol. If NPO and no IV access, give glucagon IM as ordered per hypoglycem ia protocol. Check BG every 15 minutes and repeat treatment if continued BG < 80., Correction Insulin Dosing: (DO NOT CHANGE DEFAULT SELECTION/ VALUES): High, BG < 70 instructio ns: Follow Hypoglycem ia Orders, BG 70-149 instructio ns: No Dose Needed, BG 150-199: 4, BG 200-249: 8, BG 250-299: 12, BG >/= 300: 16, BG > 300 instructio ns: Contact Provider Shari Koenig glucagon injection 1 mg glucagon injection 1 mg 2023-09 05:44: 56 Yes 1mg 1 mg, Intramuscu lar, As needed, For BG < 70 mg/dL if no IV access and patient is either Unconsciou s, unable to swallow or npo, Starting on Wed08/20/24 at 0544, For BG < 70 mg/dL if no IV access and patient is either Unconsciou s, unable to swallow or npo and notify MD. Shari Carvalho Epic dextrose 50 % solution 25 g dextrose 50 % solution 25 g 2023-09 05:44: 56 Yes 25g 25 g, Intravenou s, As needed, other, if Blood Glucose </= 50 mg/dL, Starting on 08/20/24 at 0544, If BG </=50 mg/dL, give 50 mL of D50W IV push STAT and notify MD. Shari Carvalho Epic dextrose 50 % solution 12.5 g dextrose 50 % solution 12.5 g 2023-09 05:44: 56 09-04 17:08 :22 No 12.5g 12.5 g, Intravenou s, As needed, low blood sugar, if Blood Glucose 51- 69 mg/dL, Starting on 08/20/24 at 0544, For BG 51-69 mg/dL and patient UNCONSCIOU S OR UNABLE TO SWALLOW OR NPO: Give 25 mL of D50W IV push and notify MD. Shari Koenig sodium chloride (NS) 0.9 % flush 10 mL sodium chloride (NS) 0.9 % flush 10 mL 2023-09 21:00: 00 Yes 10mL Q.5D 10 mL, Intravenou s, Every 12 hours scheduled, First dose on 08/19/24 at 2100, Phase II/On Unit, Administer at least once every 12 hours Shari Koenig sennosides (Senokot) tablet 8.6 mg sennosides (Senokot) tablet 8.6 mg 2023-09 21:00: 00 Yes 1{tbl} 8.6 mg (1 tablet), Oral, Nightly, First dose on 08/19/24 at 2100 Shari Carvalho Epic famotidine (PF) (Pepcid) injection 20 mg famotidine (PF) (Pepcid) injection 20 mg 2023-09 21:00: 00 08-25 14:17 :32 No 20mg Q.5D 20 mg, Intravenou s, Administer over 2 Minutes, Every 12 hours scheduled, First dose on 12/7/24 at 2100 Shari Koenig sodium chloride (NS) 0.9 % flush 10 mL sodium chloride (NS) 0.9 % flush 10 mL 2023-09 20:40: 24 Yes 10mL 10 mL, Intravenou s, As needed, line care, Line Flush, Starting on 08/19/24 at 2039, Phase II/On Unit Shari Koenig Enteral Free water Flush Enteral Free water Flush 2023-09 19:30: 00 09-04 12:51 :28 No Nasogastri c, at 20 mL/hr, Continuous , Starting on 08/19/24 at 1930 Shari Koenig losartan (Cozaar) tablet 25 mg losartan (Cozaar) tablet 25 mg 2023-09 19:30: 00 08-23 01:46 :49 No 25mg QD 25 mg, Oral, Daily, First dose on 08/19/24 at 1930, HOLD for SBP<110 Shari Koenig peptamen AF liquid peptamen AF liquid 2023-09 19:30: 00 08-21 11:23 :24 No Nasogastri c, at 60 mL/hr, Continuous , Starting on 08/19/24 at 1930, Administer enteral tube feeding as follows: Standard Progressio n: Initiate at 20 mL/hr and increase by 20 mL/hr evry 4 hours. Refer to the Rate field for Goal Rate Shari Koenig polyethylen e glycol (PEG) 3350 (Miralax) packet 17 g polyethylen e glycol (PEG) 3350 (Miralax) packet 17 g 2023-09 19:15: 00 Yes 17g Q12H 17 g, Per G Tube, Every 12 hours, First dose on 08/19/24 at 191, Dissolve 17 g in 120 to 240 mL (4 to 8 ounces) of beverage. Shari Koenig Docusate Sodium oral liquid 100 mg Docusate Sodium oral liquid 100 mg 2023-09 19:15: 00 Yes 100mg Q12H 100 mg, Per G Tube, Every 12 hours, First dose on 08/19/24 at 1915, OK to hold if loose stool Memoria l Deven Epic sodium chloride 0.9 % infusion sodium chloride 0.9 % infusion 2023-09 19:15: 00 08-20 05:45 :48 No 50mL/h 50 mL/hr, Intravenou s, Continuous , Starting on 08/19/24 at 1915 Shari Carvalho Epic magnesium sulfate IVPB 2 g magnesium sulfate IVPB 2 g 2023-09 19:09: 54 08-21 20:02 :14 No 2g 2 g, Intravenou s, Administer over 4 Hours, As needed, Abnormal Lab Result, FOR ICU USE ONLY, Starting on 08/19/24 at 1909, For magnesium 1.6 to 1.8 mg/dL: Replace with Mg Sulfate 2 grams IVPB over 4 hours x 1 dose. For magnesium 1.9 to 2.3 mg/dL(in CV surgery patients only): Replace with Mg Sulfate 2 grams IVPB over 4 hours X 1 dose> For magnesium </= 1.5 mg/dL: Replace with Mg Sulfate 2 grams IVPB over 4 hours X 2 doses. Notify MD if magnesium </= 1.1 mg/dL Recheck Magnesium level 2 hours after Magnesium replacemen t complete. Shari Carvalho Epic fentaNYL Citrate (Sublimaze) 1000 MCG/20ML infusion fentaNYL Citrate (Sublimaze) 1000 MCG/20ML infusion 2023-09 16:45: 00 08-20 03:57 :34 No 50ug/h 50-200 mcg/hr (1-4 mL/hr), Intravenou s, Continuous , Starting on 08/19/24 at 1645, If ordered with a ranged dose, initiate at lowest dose in ordered range. Titrate by 25 mcg/hr every 30 minutes to identified goal pain scores. Do not exceed max dose in ordered range; contact prescriber if goal not met or maintained at max dose., Goal Pain Score: Other, Other Goal Pain Score: RASS 0-1 Shari Carvalho Epic fentaNYL Citrate (Sublimaze) 1000 MCG/20ML infusion - Pyxis Override Pull fentaNYL Citrate (Sublimaze) 1000 MCG/20ML infusion - Pyxis Override Pull 2023-09 16:30: 49 08-19 16:45 :00 No Starting on 08/19/24 at 1630, For 1 dose, Created by cabinet suleman Koenig niCARdipine (Cardene) 40 mg/200 mL NS (0.2 mg/mL) premix niCARdipine (Cardene) 40 mg/200 mL NS (0.2 mg/mL) premix 2023-09 16:15: 00 08-20 15:34 :54 No 5mg/h 5-15 mg/hr (25-75 mL/hr), Intravenou s, Continuous , Starting on 08/19/24 at 1615, Infusion Type: Titrate, Initial Dose (mg/hr): 5, Titrate by (mg/hr): 2.5, Every (minutes): 15, Target Blood Pressure (mmHg): Other, Specify Goal: 90 - 140, Max Dose (mg/hr): 15 Shari Koenig iohexol (OMNIPaque) 300 MG/ML injection iohexol (OMNIPaque) 300 MG/ML injection 2023-09 15:39: 30 08-19 16:10 :53 No As needed, Starting on 08/19/24 at 1539, Intraproce dure Shari Koenig insulin lispro (HumaLOG, Admelog) injection 1-4 Units [id number] 2-07 14:55: 09 08-20 05:44 :44 No 1U Q6H 1-4 Units, Subcutaneo us, Every 6 hours PRN, high blood sugar, Starting on 08/19/24 at 1455, For BG < 70, follow hypoglycem ia protocol and notify ordering provider. If patient can eat or drink, give oral carbohydra te as ordered per hypoglycem ia protocol. If patient NPO, give dextrose 50 % IV as ordered per hypoglycem ia protocol. If NPO and no IV access, give glucagon IM as ordered per hypoglycem ia protocol. Check BG every 15 minutes and repeat treatment if continued BG < 80., Correction Insulin Dosing: (DO NOT CHANGE DEFAULT SELECTION/ VALUES): Very Low, BG < 70 instructio ns: Follow Hypoglycem ia Orders, BG 70-149 instructio ns: No Dose Needed, BG 150-199: 1, BG 200-249: 2, BG 250-299: 3, BG >/= 300: 4, BG > 300 instructio ns: Contact Provider Shari Koenig atorvastati n (Lipitor) tablet 80 mg atorvastati n (Lipitor) tablet 80 mg 2023-09 14:50: 00 Yes 80mg QD 80 mg, Oral, Daily, First dose on 08/19/24 at 1450 Shari Carvalho Epic sodium chloride (NS) 0.9 % flush 10 mL sodium chloride (NS) 0.9 % flush 10 mL 2023-09 14:00: 00 Yes 10mL Q.5D 10 mL, Intravenou s, Every 12 hours scheduled, First dose on 08/19/24 at 1400, Administer at least once every 12 hours Shari Carvalho Epic sodium chloride (NS) 0.9 % flush 10 mL sodium chloride (NS) 0.9 % flush 10 mL 2023-09 13:57: 21 Yes 10mL 10 mL, Intravenou s, As needed, line care, Line Flush, Starting on 08/19/24 at 1357 Shari Koenig iohexol (OMNIPaque) 350 MG/ML injection 60 mL iohexol (OMNIPaque) 350 MG/ML injection 60 mL 2023-09 13:43: 19 08-19 13:43 :00 No 60mL 60 mL, Intravenou s, Once in imaging, Starting on 08/19/24 at 1343, For 1 dose Shari Koenig metoclopram adolph (Reglan) injection 10 mg metoclopram adolph (Reglan) injection 10 mg 2023-09 13:25: 00 08-19 13:25 :00 No 10mg 10 mg, Intravenou s, Once, On 08/19/24 at 1325, For 1 dose Shari Koenig metoclopram adolph (Reglan) 5 MG/ML injection - Pyxis Override Pull metoclopram adolph (Reglan) 5 MG/ML injection - Pyxis Override Pull 2023-09 13:23: 56 08-19 13:25 :00 No Starting on 08/19/24 at 1323, For 1 dose, Created by cabinet override Shari Koenig sodium chloride (NS) 0.9 % flush 10 mL sodium chloride (NS) 0.9 % flush 10 mL 2023-09 13:18: 39 Yes 10mL 10 mL, Intravenou s, As needed, line care, Starting on 08/19/24 at 1318 Shari Koenig sodium chloride (NS) 0.9 % flush 10 mL sodium chloride (NS) 0.9 % flush 10 mL 2023-09 13:18: 39 Yes 10mL [Order 1 Start] Name: Insert peripheral IV Signed Summary: Once, On 08/19/24 at 1319, For 1 occurrence [Order 1 End] [Order 2 Start] Name: Saline lock IV Signed Summary: Once, On 08/19/24 at 1319, For 1 occurrence [Order 2 End] [Order 3 Start] Name: sodium chloride (NS) 0.9 % flush 10 mL Signed Summary: 10 mL, Intravenou s, As needed, line care, Starting on 08/19/24 at 1318 [Order 3 End] Shari Koenig tenecteplas e (TNKase) 50 MG injection (STROKE) - Pyxis Override Pull tenecteplas e (TNKase) 50 MG injection (STROKE) - Pyxis Override Pull 2023-09 13:14: 51 08-19 13:45 :00 No Starting on 08/19/24 at 1314, For 1 dose, Created by cabinet override Shari Koenig atorvastati n 40 mg tablet 2022-09 00:00: 00 Yes [id number] 40mg Take 1 tablet by mouth at bedtime. [facility] hydroCHLORO thiazide 25 mg tablet 2022-09 00:00: 00 Yes [id number] 25mg Take 1 tablet by mouth in the morning. [facility] metFORMIN 500 mg tablet 2022-09 00:00: 00 Yes [id number] 500mg Take 1 tablet by mouth in the morning and 1 tablet at noon and 1 tablet in the evening. Take with meals [facility] insulin aspart RAPID (NOVOLOG U-100 INSULIN ASPART) 100 unit/mL injection 03-26 00:00: 00 Yes [id number] Check BIDAC: Per sliding scale: 2 units for glucose 150-200, 3 units for 201-250, 4 units for 251-300, 6 units for 301-350, 8 units > 351 [facility] Insulin Syringe-Nee dle U-100 0.3 mL 31 gauge x 5/16" Syrg 03-26 00:00: 00 Yes [id number] Use as directed. May substitute brand preferred by insurance [facility] pen needle, diabetic (COMFORT EZ PEN NEEDLES) 33 gauge x 5/16" Ndle 03-24 00:00: 00 Yes [id number] 1{each} 1 Each as needed (wth insulin/pe r sliding scale (BIDAC)). [facility] metFORMIN 500 mg tablet 03-24 00:00: 00 07-27 00:00 :00 No [id number] 500mg Take 1 tablet by mouth in the morning and 1 tablet at noon and 1 tablet in the evening. Take with meals [facility] insulin aspart U-100 (NOVOLOG FLEXPEN U-100 INSULIN) 100 unit/mL (3 mL) injection 03-24 00:00: 00 03-26 00:00 :00 No [id number] Per sliding scale: 2 units for glucose 150-200, 3 units for 201-250, 4 units for 251-300, 6 units for 301-350, 8 units > 351 [facility] metFORMIN 500 mg tablet 03-15 00:00: 00 Yes 500mg Take 1 tablet by mouth in the morning and 1 tablet at noon and 1 tablet in the evening. Take with meals [facility] hydroCHLORO thiazide 25 mg tablet 02-18 08:44: 31 02-18 00:00 :00 No 25mg Take 1 tablet by mouth in the morning. [facility] atorvastati n 40 mg tablet 02-18 08:44: 02-18 00:00 :00 No 40mg Take 1 tablet by mouth at bedtime. [facility] metformin HCl (METFORMIN ORAL) 02-18 08:43: 39 02-18 00:00 :00 No 500mg Take 500 mg by mouth in the morning and 500 mg at noon and 500 mg in the evening. [facility] glipiZIDE 5 mg tablet 02-18 08:43: 39 02-18 00:00 :00 No 5mg Take 1 tablet by mouth in the morning. [facility] losartan 50 mg tablet 02-18 08:18: 24 02-18 00:00 :00 No 50mg Take 1 tablet by mouth in the morning. [facility] atorvastati n 40 mg tablet 02-18 00:00: 00 07-27 00:00 :00 No [id number] 40mg Take 1 tablet by mouth at bedtime. [facility] hydroCHLORO thiazide 25 mg tablet 02-18 00:00: 00 07-27 00:00 :00 No [id number] 25mg Take 1 tablet by mouth in the morning. [facility] semaglutide (OZEMPIC) 0.25 mg or 0.5 mg (2 mg/3 mL) PnIj 02-18 00:00: 00 04-20 04:59 :00 No [id number] inject 0.25 mg under the skin weekly for 30 days, THEN 0.5 mg weekly for 30 days. [facility] metformin HCl (METFORMIN ORAL) 12-17 15:23: 06 Yes 500mg Take 500 mg by mouth in the morning and 500 mg at noon and 500 mg in the evening. [facility] losartan 50 mg tablet 12-17 15:23: 06 Yes 50mg Take 1 tablet by mouth in the morning. [facility] hydroCHLORO thiazide 25 mg tablet 12-17 15:23: 06 Yes 25mg Take 1 tablet by mouth in the morning. [facility] foLIC acid 1 mg tablet 12-17 15:23: 06 Yes 1mg Take 1 tablet by mouth in the morning. [facility] atorvastati n 40 mg tablet 12-17 15:23: 06 Yes 40mg Take 1 tablet by mouth at bedtime. [facility] glipiZIDE 5 mg tablet 12-17 15:23: 06 Yes 5mg Take 1 tablet by mouth in the morning. [facility] aspirin 81 mg Cap 12-17 15:23: 06 Yes 81mg Take 81 mg by mouth in the morning. [facility] metformin HCl (METFORMIN ORAL) 11-17 14:09: 30 Yes 500mg Take 500 mg by mouth in the morning and 500 mg at noon and 500 mg in the evening. [facility] losartan 50 mg tablet 11-17 14:09: 30 Yes 50mg Take 1 tablet by mouth in the morning. [facility] hydroCHLORO thiazide 25 mg tablet 11-17 14:09: 30 Yes 25mg Take 1 tablet by mouth in the morning. [facility] foLIC acid 1 mg tablet 11-17 14:09: 30 Yes 1mg Take 1 tablet by mouth in the morning. [facility] atorvastati n 40 mg tablet 11-17 14:09: 30 Yes 40mg Take 1 tablet by mouth at bedtime. [facility] glipiZIDE 5 mg tablet 11-17 14:09: 30 Yes 5mg Take 1 tablet by mouth in the morning. [facility] aspirin 81 mg Cap 11-17 14:09: 30 Yes 81mg Take 81 mg by mouth in the morning. [facility] Immunizations Ordered Immunization Name Filled Immunization Name Date Status Comments Source Influenza, High Dose Seasonal, Preservative Free Influenza, High Dose Seasonal, Preservative Free 2024-09-27 00:00:00 Completed [facility] SARS-COV-2 COVID-19 PFIZER VACCINE 2021-05-20 00:00:00 Completed [facility] SARS-COV-2 COVID-19 PFIZER VACCINE 2021-05-20 00:00:00 Completed [facility] SARS-COV-2 COVID-19 PFIZER VACCINE 2021-05-20 00:00:00 Completed [facility] SARS-COV-2 COVID-19 PFIZER VACCINE 2021-05-20 00:00:00 Completed [facility] SARS-COV-2 COVID-19 PFIZER VACCINE 2021-05-20 00:00:00 Completed [facility] SARS-COV-2 COVID-19 PFIZER VACCINE 2021-05-20 00:00:00 Completed [facility] SARS-COV-2 COVID-19 PFIZER VACCINE 2021-05-20 00:00:00 Completed [facility] SARS-COV-2 COVID-19 PFIZER VACCINE 2021-05-20 00:00:00 Completed [facility] SARS-COV-2 COVID-19 PFIZER VACCINE 2021-05-20 00:00:00 Completed [facility] SARS-COV-2 COVID-19 PFIZER VACCINE 2021-05-20 00:00:00 Completed [facility] SARS-COV-2 COVID-19 PFIZER VACCINE 2021-05-20 00:00:00 Completed [facility] SARS-COV-2 COVID-19 PFIZER VACCINE 2020-12-25 00:00:00 Completed [facility] SARS-COV-2 COVID-19 PFIZER VACCINE 2020-12-25 00:00:00 Completed [facility] SARS-COV-2 COVID-19 PFIZER VACCINE 2020-12-25 00:00:00 Completed [facility] SARS-COV-2 COVID-19 PFIZER VACCINE 2020-12-25 00:00:00 Completed [facility] SARS-COV-2 COVID-19 PFIZER VACCINE 2020-12-25 00:00:00 Completed [facility] SARS-COV-2 COVID-19 PFIZER VACCINE 2020-12-25 00:00:00 Completed [facility] SARS-COV-2 COVID-19 PFIZER VACCINE 2020-12-25 00:00:00 Completed [facility] SARS-COV-2 COVID-19 PFIZER VACCINE 2020-12-25 00:00:00 Completed [facility] SARS-COV-2 COVID-19 PFIZER VACCINE 2020-12-25 00:00:00 Completed [facility] SARS-COV-2 COVID-19 PFIZER VACCINE 2020-12-25 00:00:00 Completed [facility] SARS-COV-2 COVID-19 PFIZER VACCINE 2020-12-25 00:00:00 Completed [facility] SARS-COV-2 COVID-19 PFIZER VACCINE 2020-12-04 00:00:00 Completed [facility] SARS-COV-2 COVID-19 PFIZER VACCINE 2020-12-04 00:00:00 Completed [facility] SARS-COV-2 COVID-19 PFIZER VACCINE 2020-12-04 00:00:00 Completed [facility] SARS-COV-2 COVID-19 PFIZER VACCINE 2020-12-04 00:00:00 Completed [facility] SARS-COV-2 COVID-19 PFIZER VACCINE 2020-12-04 00:00:00 Completed [facility] SARS-COV-2 COVID-19 PFIZER VACCINE 2020-12-04 00:00:00 Completed [facility] SARS-COV-2 COVID-19 PFIZER VACCINE 2020-12-04 00:00:00 Completed [facility] SARS-COV-2 COVID-19 PFIZER VACCINE 2020-12-04 00:00:00 Completed [facility] SARS-COV-2 COVID-19 PFIZER VACCINE 2020-12-04 00:00:00 Completed [facility] SARS-COV-2 COVID-19 PFIZER VACCINE 2020-12-04 00:00:00 Completed [facility] SARS-COV-2 COVID-19 PFIZER VACCINE 2020-12-04 00:00:00 Completed [facility] SARS-COV-2 COVID-19 PFIZER VACCINE Unknown Completed [facility] Vital Signs Vital Name Observation Time Observation Value Comments S ource Heart rate 2024-09-05 16:55:39 91 [facility] 2024-09-05 16:55:39 16 /min [facility] Oxygen saturation in Arterial blood by Pulse oximetry 2024-09-05 16:55:39 96 /min [facility] Systolic blood pressure 2024-09-05 16:55:26 129 mm[Hg] [facility] Diastolic blood pressure 2024-09-05 16:55:26 64 mm[Hg] [facility] Body temperature 2024-09-05 16:54:[address] [facility] Body weight 2024-08-28 15:54:00 87.998 kg Vinay javierl [facility] BMI 2024-08-28 15:54:00 27.77 kg/m2 Vinay javierl [facility] Body height 2024-08-23 21:52:00 178 cm Vinay rial [facility] Heart rate 2024-09-27 11:10:00 76 /min Memor [facility] Epic Respiratory rate 2024-09-27 08:06:00 16 /min [facility] Epic Oxygen saturation in Arterial blood by Pulse oximetry 2024-09-27 08:06:00 98 /min [facility] Systolic blood pressure 2024-09-27 07:13:25 119 mm[Hg] [facility] Diastolic blood pressure 2024-09-27 07:13:25 49 mm[Hg] [facility] Body temperature 2024-09-27 07:13:[address] [facility] Body weight 2024-09-14 12:47:00 82.3 kg Vinay javierl [facility] BMI 2024-09-14 12:47:00 28.42 kg/m2 Vinay javierl [facility] Body height 2024-09-05 19:03:00 170.2 cm Vinay rial [facility] Epic Heart rate 2024-09-27 11:10:00 76 /min [facility] Respiratory rate 2024-09-27 08:06:00 16 /min [facility] Oxygen saturation in Arterial blood by Pulse oximetry 2024-09-27 08:06:00 98 /min [facility] Systolic blood pressure 2024-09-27 07:13:25 119 mm[Hg] [facility] Diastolic blood pressure 2024-09-27 07:13:25 49 mm[Hg] [facility] Body temperature 2024-09-27 07:13:[address] [facility] Body weight 2024-09-14 12:47:00 82.3 kg Vinay rial [facility] BMI 2024-09-14 12:47:00 28.42 kg/m2 Vinay rial [facility] Epic Body height 2024-09-05 19:03:00 170.2 cm Vinay rial [facility] Epic Heart rate 2024-09-05 16:55:39 91 /min [facility] Respiratory rate 2024-09-05 16:55:39 16 /min [facility] O[facility] saturation in Arterial blood by Pulse oximetry 2024-09-05 16:55:39 96 /min [facility] Her kay Epic Systolic blood pressure 2024-09-05 16:55:26 129 mm[Hg] [facility] kay Epic Diastolic blood pressure 2024-09-05 16:55:26 64 mm[Hg] [facility] Epic Body temperature 2024-09-05 16:54:56 37.06 [facility] Epic Body weight 2024-08-28 15:54:00 87.998 kg Vinay rial [facility] Epic BMI 2024-08-28 15:54:00 27.77 kg/m2 Vinay rial [facility] Epic Body height 2024-08-23 21:52:00 178 cm Vinay rial [facility] Epic Heart rate 2024-09-05 16:55:39 91 /min [facility] Epic Respiratory rate 2024-09-05 16:55:39 16 /min [facility] Oxygen saturation in Arterial blood by Pulse oximetry 2024-09-05 16:55:39 96 /min [facility] Her kay [facility] Systolic blood pressure 2024-09-05 16:55:26 129 mm[Hg] [facility] Her kay Epic Diastolic blood pressure 2024-09-05 16:55:26 64 mm[Hg] [facility] Epic Body temperature 2024-09-05 16:54:56 [facility] 2024-08-28 15:54:00 87.998 kg Vinay rial [facility] Epic BMI 2024-08-28 15:54:00 27.77 kg/m2 Vinay rial [facility] Epic Body height 2024-08-23 21:52:00 178 cm Vinay rial [facility] Epic Systolic blood pressure 2023-02-18 13:03:00 133 mm[Hg] [facility] Diastolic blood pressure 2023-02-18 13:03:00 64 mm[Hg] [facility] Heart rate 2023-02-18 13:03:00 97 /min [facility] Body temperature 2023-02-18 13:03:00 36.61 Lucy [facility] Respiratory rate 2023-02-18 13:03:00 18 /min [facility] Body height 2023-02-18 13:03:00 172.7 cm [facility] Body weight 2023-02-18 13:03:00 76.703 kg [facility] BMI 2023-02-18 13:03:00 25.71 kg/m2 [facility] Oxygen saturation in Arterial blood by Pulse oximetry 2023-02-18 13:03:00 96 /min [facility] Systolic blood pressure 2022-12-17 20:28:00 154 mm[Hg] [facility] Diastolic blood pressure 2022-12-17 20:28:00 68 mm[Hg] [facility] Heart rate 2022-12-17 20:28:00 78 /min [facility] Oxygen saturation in Arterial blood by Pulse oximetry 2022-12-17 20:28:00 96 /min [facility] Body temperature 2022-12-17 20:26:00 36.72 Lucy [facility] Respiratory rate 2022-12-17 20:26:00 18 /min [facility] Body height 2022-12-17 20:26:00 172.7 cm [facility] Body weight 2022-12-17 20:26:00 80.786 kg [facility] BMI 2022-12-17 20:26:00 27.08 kg/m2 [facility] Systolic blood pressure 2022-11-17 19:04:00 133 mm[Hg] [facility] Diastolic blood pressure 2022-11-17 19:04:00 63 mm[Hg] [facility] Heart rate 2022-11-17 19:04:00 86 /min [facility] Body temperature 2022-11-17 19:02:00 36.89 Lucy [facility] Respiratory rate 2022-11-17 19:02:00 20 /min [facility] Body height 2022-11-17 19:02:00 172.7 cm [facility] Body weight 2022-11-17 19:02:00 80.922 kg [facility] BMI 2022-11-17 19:02:00 27.13 kg/m2 [facility] Oxygen saturation in Arterial blood by Pulse oximetry 2022-11-17 19:02:00 95 /min [facility] Respiratory Rate 2024-11-15 14:52:00 Gopal Medrano BP Systolic 2024-11-15 14:52:00 111 mm[Hg] Kendrick Medrano BP Diastolic 2024-11-15 14:52:00 66 mm[Hg] Tee Medrano Weight Measured 2024-11-15 14:52:00 175.00 pounds Gopal Medrano Height Measured 2024-11-15 14:52:00 67.00 inches Gopal Medrano Body Temperature 2024-11-15 14:52:00 97.70 degrees Gopal Medrano Heart Rate 2024-11-15 14:52:00 94.00 /min Carolynn Medrano Procedures Procedure Date / Time Performed Performing Clinician Source Complete Blood Count w/Diff and Platelet 2024-11-13 00:00:00 [employer] [facility] Comprehensive Metabolic Panel 2024-11-13 00:00:00 [facility] POCT Glucose 2024-10-05 00:00:00 [facility] POCT Glucose 2024-10-04 00:00:00 [facility] POC GLUCOSE UNSOLICITED RESULTS 2024-09-27 12:15:00 Narciso Mcclain [facility] Epic POC GLUCOSE UNSOLICITED RESULTS 2024-09-27 08:08:00 Narciso Mcclain [facility] Epic POC GLUCOSE UNSOLICITED RESULTS 2024-09-26 16:57:00 Narciso Mcclain [facility] Epic POC GLUCOSE UNSOLICITED RESULTS 2024-09-26 12:34:00 Narciso Mcclain [facility] Epic POC GLUCOSE UNSOLICITED RESULTS 2024-09-26 07:30:00 Narciso Mcclain [facility] Epic POC GLUCOSE UNSOLICITED RESULTS 2024-09-25 17:58:00 Narciso Mcclain [facility] Epic POC GLUCOSE UNSOLICITED RESULTS 2024-09-25 17:57:00 Narciso Mcclain [facility] POC GLUCOSE UNSOLICITED RESULTS 2024-09-25 12:20:00 Narciso Mcclain [facility] POC GLUCOSE UNSOLICITED RESULTS 2024-09-25 09:12:00 Hilario Narciso [facility] COMPREHENSIVE METABOLIC PANEL 2024-09-25 05:42:00 Bernadette Norton [facility] COMPLETE BLOOD COUNT W/DIFF AND PLATELET 2024-09-25 05:42:00 Bernadette Norton [facility] COMPLETE BLOOD COUNT 2024-09-25 05:42:00 Kumar Norton [facility] AUTOMATED DIFFERENTIAL 2024-09-25 05:42:00 Mis Norton [facility] POC GLUCOSE UNSOLICITED RESULTS 2024-09-24 17:37:00 Hilario Narciso [facility] POC GLUCOSE UNSOLICITED RESULTS 2024-09-24 12:04:00 Narciso Mcclain [facility] POC GLUCOSE UNSOLICITED RESULTS 2024-09-24 07:41:00 Narciso Mcclain [facility] POC GLUCOSE UNSOLICITED RESULTS 2024-09-23 16:14:00 Hilario Narciso [facility] POC GLUCOSE UNSOLICITED RESULTS 2024-09-23 11:18:00 Hilario Narciso [facility] POC GLUCOSE UNSOLICITED RESULTS 2024-09-23 07:19:00 Hilario Narciso [facility] POC GLUCOSE UNSOLICITED RESULTS 2024-09-22 16:25:00 Bernadette Norton [facility] [place] ESOPHAGUS BARIUM SWALLOW WITH VIDEO AND SPEECH 2024-09-22 13:35:41 Bernadette Norton [facility] POC GLUCOSE UNSOLICITED RESULTS 2024-09-22 11:58:00 Bernadette Norton [facility] POC GLUCOSE UNSOLICITED RESULTS 2024-09-22 07:45:00 Bernadette Norton [facility] POC GLUCOSE UNSOLICITED RESULTS 2024-09-21 17:06:00 Bernadette Norton [facility] POC GLUCOSE UNSOLICITED RESULTS 2024-09-21 12:33:00 Bernadette Norton [facility] POC GLUCOSE UNSOLICITED RESULTS 2024-09-21 08:42:00 Bernadette Norton [facility] Epic POC GLUCOSE UNSOLICITED RESULTS 2024-09-20 18:31:00 Errol Misjudy Edward [facility] POC GLUCOSE UNSOLICITED RESULTS 2024-09-20 17:01:00 Kumar Nortonseng Edward [facility] POC GLUCOSE UNSOLICITED RESULTS 2024-09-20 12:15:00 ErrolKumarseng Edward [facility] POC GLUCOSE UNSOLICITED RESULTS 2024-09-20 08:07:00 Errol Kumaresng Edward [facility] POC GLUCOSE UNSOLICITED RESULTS 2024-09-19 16:05:00 ErrolKumarseng Edward [facility] POC GLUCOSE UNSOLICITED RESULTS 2024-09-19 11:50:00 Bernadette Norton Edward [facility] POC GLUCOSE UNSOLICITED RESULTS 2024-09-19 09:13:00 Errol Misjudy Edward [facility] POCT Glucose 2024-09-19 00:00:00 [facility] POC GLUCOSE UNSOLICITED RESULTS 2024-09-18 17:01:00 Errol Kumarseng Leon [facility] POC GLUCOSE UNSOLICITED RESULTS 2024-09-18 14:17:00 ErrolKumarseng Edward [facility] POC GLUCOSE UNSOLICITED RESULTS 2024-09-18 12:10:00 Errol Kumarseng Leon [facility] POC GLUCOSE UNSOLICITED RESULTS 2024-09-18 08:12:00 Errol Kumarseng Edward [facility] POC GLUCOSE UNSOLICITED RESULTS 2024-09-18 07:55:00 Errol Misjudy Leon [facility] POC GLUCOSE UNSOLICITED RESULTS 2024-09-18 07:24:00 Bernadette Norton [facility] COMPREHENSIVE METABOLIC PANEL 2024-09-18 05:29:00 Bernadette Norton [facility] COMPLETE BLOOD COUNT W/DIFF AND PLATELET 2024-09-18 05:29:00 Bernadette Norton [facility] COMPLETE BLOOD COUNT 2024-09-18 05:29:00 Kumar Norton [facility] AUTOMATED DIFFERENTIAL 2024-09-18 05:29:00 Mis Norton [facility] POCT Glucose 2024-09-18 00:00:00 [facility] POC GLUCOSE UNSOLICITED RESULTS 2024-09-17 16:42:00 Bernadette Norton [facility] POC GLUCOSE UNSOLICITED RESULTS 2024-09-17 11:45:00 Bernadette Norton [facility] POC GLUCOSE UNSOLICITED RESULTS 2024-09-17 07:50:00 Bernadette Norton [facility] POC GLUCOSE UNSOLICITED RESULTS 2024-09-16 17:29:00 Bernadette Norton [facility] POC GLUCOSE UNSOLICITED RESULTS 2024-09-16 11:35:00 Bernadette Norton [facility] [facility] POC GLUCOSE UNSOLICITED RESULTS 2024-09-16 08:35:00 Bernadette Norton [facility] Basic Metabolic Panel 2024-09-16 00:00:00 [facility] Complete Blood Count w/Diff and Platelet 2024-09-16 00:00:00 [facility] Calcium Level Ionized Whole Blood 2024-09-16 00:00:00 [facility] POC GLUCOSE UNSOLICITED RESULTS 2024-09-15 17:04:00 Bernadette Norton [facility] POC GLUCOSE UNSOLICITED RESULTS 2024-09-15 14:22:00 Bernadette Norton [facility] POC GLUCOSE UNSOLICITED RESULTS 2024-09-15 12:10:00 Bernadette Norton [facility] POC GLUCOSE UNSOLICITED RESULTS 2024-09-15 07:29:00 Bernadette Norton [facility] Magnesium Level 2024-09-15 00:00:00 Memor ial [facility] Phosphorus Level 2024-09-15 00:00:00 Vinay rial [facility] POC GLUCOSE UNSOLICITED RESULTS 2024-09-14 17:03:00 Bernadette Norton [facility] POC GLUCOSE UNSOLICITED RESULTS 2024-09-14 12:10:00 Bernadette Norton [facility] POC GLUCOSE UNSOLICITED RESULTS 2024-09-14 07:31:00 Bernadette Norton [facility] POC GLUCOSE UNSOLICITED RESULTS 2024-09-13 16:42:00 Bernadette Norton [facility] POC GLUCOSE UNSOLICITED RESULTS 2024-09-13 11:44:00 Bernadette Norton [facility] POC GLUCOSE UNSOLICITED RESULTS 2024-09-13 07:53:00 Bernadette Norton Edward [facility] POC GLUCOSE UNSOLICITED RESULTS 2024-09-12 17:19:00 Bernadette Norton [facility] POC GLUCOSE UNSOLICITED RESULTS 2024-09-12 13:20:00 Bernadette Norton [facility] POC GLUCOSE UNSOLICITED RESULTS 2024-09-12 12:31:00 Bernadette Norton [facility] POC GLUCOSE UNSOLICITED RESULTS 2024-09-12 12:06:00 Bernadette Norton Edward [facility] POC GLUCOSE UNSOLICITED RESULTS 2024-09-12 07:44:00 Bernadette Norton Edward [facility] POC GLUCOSE UNSOLICITED RESULTS 2024-09-11 16:41:00 Bernadette Norton [facility] POC GLUCOSE UNSOLICITED RESULTS 2024-09-11 12:11:00 Bernadette Norton Edward [facility] POC GLUCOSE UNSOLICITED RESULTS 2024-09-11 08:14:00 Bernadette Norton [facility] COMPREHENSIVE METABOLIC PANEL 2024-09-11 06:20:00 Bernadette Norton [facility] COMPLETE BLOOD COUNT W/DIFF AND PLATELET 2024-09-11 06:20:00 Bernadette Norton Edward [facility] COMPLETE BLOOD COUNT 2024-09-11 06:20:00 Kumar Norton [facility] AUTOMATED DIFFERENTIAL 2024-09-11 06:20:00 Mis Norton [facility] POC GLUCOSE UNSOLICITED RESULTS 2024-09-10 16:29:00 Bernadette Norton [facility] POC GLUCOSE UNSOLICITED RESULTS 2024-09-10 12:20:00 Bernadette Norton [facility] POC GLUCOSE UNSOLICITED RESULTS 2024-09-10 07:56:00 Bernadette Norton [facility] POC GLUCOSE UNSOLICITED RESULTS 2024-09-09 16:43:00 Bernadette Norton [facility] POC GLUCOSE UNSOLICITED RESULTS 2024-09-09 12:01:00 Bernadette Norton [facility] POC GLUCOSE UNSOLICITED RESULTS 2024-09-09 08:32:00 Errol, Prathap [facility] POC GLUCOSE UNSOLICITED RESULTS 2024-09-08 17:21:00 Bernadette Norton [facility] POC GLUCOSE UNSOLICITED RESULTS 2024-09-08 13:53:00 Bernadette Norton Edward [facility] CT BRAIN WO IV CONTRAST 2024-09-08 12:09:51 Shanda Norton Edward [facility] POC GLUCOSE UNSOLICITED RESULTS 2024-09-08 11:51:00 Bernadette Norton [facility] POC GLUCOSE UNSOLICITED RESULTS 2024-09-08 11:07:00 Bernadette Norton [facility] POC GLUCOSE UNSOLICITED RESULTS 2024-09-08 07:57:00 Bernadette Norton Edward [facility] COMPREHENSIVE METABOLIC PANEL 2024-09-08 05:57:00 Bernadette Norton [facility] COMPLETE BLOOD COUNT W/DIFF AND PLATELET 2024-09-08 05:57:00 Bernadette Norton [facility] COMPLETE BLOOD COUNT 2024-09-08 05:57:00 Kumar Norton [facility] AUTOMATED DIFFERENTIAL 2024-09-08 05:57:00 Mis Norton [facility] POC GLUCOSE UNSOLICITED RESULTS 2024-09-08 05:49:00 Bernadette Norton Edward [facility] POC GLUCOSE UNSOLICITED RESULTS 2024-09-08 00:06:00 Bernadette Norton [facility] POC GLUCOSE UNSOLICITED RESULTS 2024-09-07 17:10:00 Bernadette Norton Edward [facility] POC GLUCOSE UNSOLICITED RESULTS 2024-09-07 12:01:00 Bernadette Norton Edward [facility] US LOWER EXTREMITY VENOUS DOPPLER BILATERAL 2024-09-07 10:04:00 Holden Karimi [facility] POC GLUCOSE UNSOLICITED RESULTS 2024-09-07 09:01:00 Bernadette Norton [facility] POC GLUCOSE UNSOLICITED RESULTS 2024-09-07 07:45:00 Bernadette Norton [facility] POC GLUCOSE UNSOLICITED RESULTS 2024-09-07 07:19:00 Bernadette Norton [facility] POC GLUCOSE UNSOLICITED RESULTS 2024-09-06 21:17:00 Bernadette Norton [facility] POC GLUCOSE UNSOLICITED RESULTS 2024-09-06 17:41:00 Bernadette Norton [facility] POC GLUCOSE UNSOLICITED RESULTS 2024-09-06 15:36:00 Bernadette Norton [facility] POC GLUCOSE UNSOLICITED RESULTS 2024-09-06 11:39:00 Bernadette Norton [facility] XR CHEST 1 VIEW 2024-09-06 11:28:23 [facility] IV CONTRAST 2024-09-06 11:27:38 Vahid Karimi [facility] XR ABDOMEN 1 VIEW 2024-09-06 08:24:02 Miranda Simpson [facility] POC GLUCOSE UNSOLICITED RESULTS 2024-09-06 08:07:00 Bernadette Norton [facility] MAGNESIUM LEVEL 2024-09-06 04:50:00 Bernadette Norton cob [facility] PHOSPHORUS LEVEL 2024-09-06 04:50:00 Bernadette Norton acob [facility] COMPLETE BLOOD COUNT W/DIFF AND PLATELET 2024-09-06 04:50:00 Bernadette Norton [facility] VITAMIN D 25-HYDROXY 2024-09-06 04:50:00 Kumar Norton [facility] COMPLETE BLOOD COUNT 2024-09-06 04:50:00 Kumar Norton [facility] AUTOMATED DIFFERENTIAL 2024-09-06 04:50:00 Mis Norton [facility] ECG 12-LEAD 2024-09-05 20:54:17 Elena Simpson [facility] POC GLUCOSE UNSOLICITED RESULTS 2024-09-05 20:22:00 Bernadette Norton [facility] POC GLUCOSE UNSOLICITED RESULTS 2024-09-05 16:10:00 Faina Barton [facility] POC GLUCOSE UNSOLICITED RESULTS 2024-09-05 12:25:00 Faina Barton [facility] POC GLUCOSE UNSOLICITED RESULTS 2024-09-05 08:37:00 Faina Barton [facility] COMPLETE BLOOD COUNT 2024-09-05 04:15:00 [facility] DIFFER[facility] 2024-09-05 04:15:00 Bhumika Wild [facility] COMPLETE BLOOD COUNT W/DIFF AND PLATELET 2024-09-05 04:15:00 Bhumika Wild [facility] CALCIUM LEVEL IONIZED WHOLE BLOOD 2024-09-05 02:39:00 Bhumika Wild [facility] BASIC METABOLIC PANEL 2024-09-05 02:39:00 Balbir Wild [facility] Therapeutic recreation evaluate and treat 2024-09-05 00:00:00 [facility] POC GLUCOSE UNSOLICITED RESULTS 2024-09-04 23:47:00 Chaitanya Lewis [facility] POC GLUCOSE UNSOLICITED RESULTS 2024-09-04 17:08:00 Chaitanya Lewis [facility] POC GLUCOSE UNSOLICITED RESULTS 2024-09-04 11:53:00 Chaitanya Lewis [facility] POC GLUCOSE UNSOLICITED RESULTS 2024-09-04 08:48:00 GrottaChaitanya [facility] POC GLUCOSE UNSOLICITED RESULTS 2024-09-04 06:14:00 Chaitanya Lewis [facility] CALCIUM LEVEL IONIZED WHOLE BLOOD 2024-09-04 03:12:00 Bhumika Wild [facility] COMPLETE BLOOD COUNT 2024-09-04 03:12:00 Dean Wild [facility] AUTOMATED DIFFERENTIAL 2024-09-04 03:12:00 Bhumika Wild [facility] BASIC METABOLIC PANEL 2024-09-04 03:12:00 Balbir Wild [facility] Epic MAGNESIUM LEVEL 2024-09-04 03:12:00 Bhumika Wild [facility] Epic PHOSPHORUS LEVEL 2024-09-04 03:12:00 Bhumika Wild [facility] COMPLETE BLOOD COUNT W/DIFF AND PLATELET 2024-09-04 03:12:00 Bhumika Wild [facility] POC GLUCOSE UNSOLICITED RESULTS 2024-09-03 21:44:00 Chaitanya Lewis [facility] POC GLUCOSE UNSOLICITED RESULTS 2024-09-03 17:17:00 Ch[facility] LOOP INSERTION 2024-09-03 11:43:07 Frantz Miles machandler [facility] POC GLUCOSE UNSOLICITED RESULTS 2024-09-03 07:23:00 Mannava, Sishir [facility] CALCIUM LEVEL IONIZED WHOLE BLOOD 2024-09-03 02:39:00 Ryazanova, Bhumika [facility] COMPLETE BLOOD COUNT 2024-09-03 02:39:00 Ryazanova, Al tanya [facility] AUTOMATED DIFFERENTIAL 2024-09-03 02:39:00 Ryazanova, Bhumika [facility] BASIC METABOLIC PANEL 2024-09-03 02:39:00 Ryazanova, A miguel [facility] Epic COMPLETE BLOOD COUNT W/DIFF AND PLATELET 2024-09-03 02:39:00 Ryazanova, Bhumika [facility] Epic POC GLUCOSE UNSOLICITED RESULTS 2024-09-02 21:05:00 Mannava, Sishir [facility] Epic ECG 12-LEAD 2024-09-02 18:28:31 Chevy Black [facility] Epic POC GLUCOSE UNSOLICITED RESULTS 2024-09-02 17:38:00 Mannava, Sishir [facility] POC GLUCOSE UNSOLICITED RESULTS 2024-09-02 12:05:00 Mannava, Sishir [facility] Epic POC GLUCOSE UNSOLICITED RESULTS 2024-09-02 05:20:00 Mannava, Sishir [facility] Epic CALCIUM LEVEL IONIZED WHOLE BLOOD 2024-09-02 01:45:00 Ryazanova, Bhumika [facility] COMPLETE BLOOD COUNT 2024-09-02 01:45:00 Ryazanova, Al tanya [facility] Epic AUTOMATED DIFFERENTIAL 2024-09-02 01:45:00 Ryazanova, Bhumika [facility] Epic BASIC METABOLIC PANEL 2024-09-02 01:45:00 Ryazanova, A miguel [facility] Epic COMPLETE BLOOD COUNT W/DIFF AND PLATELET 2024-09-02 01:45:00 Ryazanova, Bhumika [facility] Epic POC GLUCOSE UNSOLICITED RESULTS 2024-09-01 23:31:00 Mannava, Sishir [facility] Epic POC GLUCOSE UNSOLICITED RESULTS 2024-09-01 17:32:00 Mannava, Sishir [facility] Epic POC GLUCOSE UNSOLICITED RESULTS 2024-09-01 12:07:00 Rob Bushrainr [facility] POC GLUCOSE UNSOLICITED RESULTS 2024-09-01 08:19:00 Mannbreonna, Sisinr [facility] POC GLUCOSE UNSOLICITED RESULTS 2024-09-01 05:57:00 oRb Bushrainsvetlana [facility] CALCIUM LEVEL IONIZED WHOLE BLOOD 2024-09-01 02:24:00 Bhumika Wild [facility] COMPLETE BLOOD COUNT 2024-09-01 02:24:00 Dean Wild [facility] AUTOMATED DIFFERENTIAL 2024-09-01 02:24:00 Bhumika Wild [facility] BASIC METABOLIC PANEL 2024-09-01 02:24:00 Balbir Wild [facility] MAGNESIUM LEVEL 2024-09-01 02:24:00 [facility]OS[facility] 2024-09-01 02:24:00 Bhumika Wild [facility] COMPLETE BLOOD COUNT W/DIFF AND PLATELET 2024-09-01 02:24:00 Bhmuika Wild [facility] POC GLUCOSE UNSOLICITED RESULTS 2024-08-31 23:02:00 Rob Bushrainsvetlana [facility] XR ABDOMEN 1 VIEW 2024-08-31 19:48:00 Brenda Ching [facility] CT ANGIOGRAM BRAIN NECK STROKE 2024-08-31 17:16:57 [facility] CT BRAIN STROKE WO IV CONTRAST 2024-08-31 17:16:57 [facility] POC GLUCOSE UNSOLICITED RESULTS 2024-08-31 16:14:00 [facility] POC GLUCOSE UNSOLICITED RESULTS 2024-08-31 12:36:00 [facility] LACTIC ACID LEVEL 2024-08-31 11:06:00 Brenda Ching [facility] BLOOD CULTURE 2024-08-31 09:41:00 Bo Guerrero [facility] POC GLUCOSE UNSOLICITED RESULTS 2024-08-31 07:46:00 [facility] XR CHEST 1 VIEW 2024-08-31 02:30:00 Memo Ching [facility] POC GLUCOSE UNSOLICITED RESULTS 2024-08-31 01:41:00 Jack Rivas [facility] UA WITH CULTURE IF INDICATED 2024-08-31 00:44:00 Shirin Ching [facility] PROCALCITONIN LEVEL 2024-08-31 00:30:00 Shirin Ching [facility] CALCIUM LEVEL IONIZED WHOLE BLOOD 2024-08-31 00:30:00 Bhumika Wild [facility] COMPLETE BLOOD COUNT 2024-08-31 00:30:00 Dean Wild [facility] AUTOMATED DIFFERENTIAL 2024-08-31 00:30:00 Bhumika Wild [facility] BASIC METABOLIC PANEL 2024-08-31 00:30:00 Balbir Wild [facility] HEPATIC FUNCTION PANEL 2024-08-31 00:30:00 Shirin Ocasio Latoya [facility] AMMONIA LEVEL 2024-08-31 00:30:00 Memo Ching Latoya [facility] LACTIC ACID LEVEL 2024-08-31 00:30:00 [facility] W/DIFF AND PLATELET 2024-08-31 00:30:00 Bhumika Wild [facility] OUTSIDE IMAGING SCAN 2024-08-31 00:00:00 [facility] POC GLUCOSE UNSOLICITED RESULTS 2024-08-30 21:12:00 Rob Bushrastephanie [facility] POC GLUCOSE UNSOLICITED RESULTS 2024-08-30 17:45:00 Rob Sisinsvetlana [facility] POC GLUCOSE UNSOLICITED RESULTS 2024-08-30 13:16:00 Rob Sisinsvetlana [facility] US TRANSCRANIAL DOPPLER (TCD) LIMITED 2024-08-30 10:54:20 [facility] CALCIUM LEVEL IONIZED WHOLE BLOOD 2024-08-30 05:39:00 Bhumika Wild [facility] COMPLETE BLOOD COUNT 2024-08-30 05:39:00 Dean Wild [facility] AUTOMATED DIFFERENTIAL 2024-08-30 05:39:00 Bhumika Wild [facility] BASIC METABOLIC PANEL 2024-08-30 05:39:00 Balbir Wild [facility] MAGNESIUM LEVEL 2024-08-30 05:39:00 [facility]hum[facility] PHOSPHORUS LEVEL 2024-08-30 05:39:00 Bhumika Wild [facility] COMPLETE BLOOD COUNT W/DIFF AND PLATELET 2024-08-30 05:39:00 Bhumika Wild [facility] POC GLUCOSE UNSOLICITED RESULTS 2024-08-30 05:04:00 [facility] ECG 12-LEAD 2024-08-30 03:44:59 Roger Jones [facility] POC GLUCOSE UNSOLICITED RESULTS 2024-08-29 23:29:00 [facility] XR CHEST 1 VIEW 2024-08-29 22:58:11 [facility] POC GLUCOSE UNSOLICITED RESULTS 2024-08-29 17:30:00 Chaitanya Lewis [facility] POTASSIUM LEVEL 2024-08-29 16:33:00 Roger Jones [facility] POC GLUCOSE UNSOLICITED RESULTS 2024-08-29 12:03:00 Chaitanya Lewis [facility] FL ESOPHAGUS BARIUM SWALLOW WITH VIDEO AND SPEECH 2024-08-29 09:38:00 Hernan Castro [facility] POC GLUCOSE UNSOLICITED RESULTS 2024-08-29 06:24:00 Chaitanya Lewis [facility] CALCIUM LEVEL IONIZED WHOLE BLOOD 2024-08-29 03:51:00 Bhumika Wild [facility] COMPLETE BLOOD COUNT 2024-08-29 02:03:00 Dean Wild [facility] AUTOMATED DIFFERENTIAL 2024-08-29 02:03:00 Bhumika Wild [facility] BASIC METABOLIC PANEL 2024-08-29 02:03:00 Balbir Wild [facility] COMPLETE BLOOD COUNT W/DIFF AND PLATELET 2024-08-29 02:03:00 Bhumika Wild [facility] POC GLUCOSE UNSOLICITED RESULTS 2024-08-29 01:11:00 Chaitanya Lewis [facility] XR ABDOMEN 1 VIEW 2024-08-29 01:01:44 Thomasblanco Carneya, Chris richardnaheed [facility] POC GLUCOSE UNSOLICITED RESULTS 2024-08-29 00:35:00 Chaitanya Lewis [facility] XR ABDOMEN 1 VIEW 2024-08-28 22:25:47 Thomas Hattie, Chris barrett [facility] POC GLUCOSE UNSOLICITED RESULTS 2024-08-28 17:22:00 Chaitanya Lewis [facility] BASIC METABOLIC PANEL 2024-08-28 16:49:00 BlackChevy plattleno [facility] POC GLUCOSE UNSOLICITED RESULTS 2024-08-28 11:14:00 Chaitanya Lewis [facility] POC GLUCOSE UNSOLICITED RESULTS 2024-08-28 05:15:00 Chaitanya Lewis [facility] CALCIUM LEVEL IONIZED WHOLE BLOOD 2024-08-28 01:08:00 RyazanBhumika bustillos [facility] COMPLETE BLOOD COUNT 2024-08-28 01:08:00 Dean Wild [facility] AUTOMATED DIFFERENTIAL 2024-08-28 01:08:00 RyazanBhumika bustillos [facility] BASIC METABOLIC PANEL 2024-08-28 01:08:00 Balbir Wild miguel [facility] Epic MAGNESIUM LEVEL 2024-08-28 01:08:00 RyBhumika [facility] PHOSPHORUS LEVEL 2024-08-28 01:08:00 RyazanBhumika bustillos [facility] COMPLETE BLOOD COUNT W/DIFF AND PLATELET 2024-08-28 01:08:00 Bhumika Wild [facility] POC GLUCOSE UNSOLICITED RESULTS 2024-08-27 23:23:00 Chaitanya Lewis [facility] POC GLUCOSE UNSOLICITED RESULTS 2024-08-27 17:23:00 Chaitanya Lewis [facility] POC GLUCOSE UNSOLICITED RESULTS 2024-08-27 11:07:00 Chaitanya Lewis [facility] POC GLUCOSE UNSOLICITED RESULTS 2024-08-27 05:18:00 Chaitanya Lewis [facility] POC GLUCOSE UNSOLICITED RESULTS 2024-08-27 04:09:00 Chaitanya Lewis [facility] BLOOD CULTURE 2024-08-27 01:21:00 Keena Rojas [facility] PROCALCITONIN LEVEL 2024-08-27 01:20:00 Lu Rojas [facility] CALCIUM LEVEL IONIZED WHOLE BLOOD 2024-08-27 01:20:00 Ryazantressa, Bhumika [facility] COMPLETE BLOOD COUNT 2024-08-27 01:20:00 Ryazantressa, Al tanya [facility] AUTOMATED DIFFERENTIAL 2024-08-27 01:20:00 Ryazantressa, Bhumika [facility] BASIC METABOLIC PANEL 2024-08-27 01:20:00 Ryazanova, A miguel [facility] COMPLETE BLOOD COUNT W/DIFF AND PLATELET 2024-08-27 01:20:00 Bhumika Wild [facility] GRAM POSITIVE BLOOD CULTURE HARRY 2024-08-26 23:26:00 Chaitanya Lewis [facility] POC GLUCOSE UNSOLICITED RESULTS 2024-08-26 22:03:00 Chaitanya Lewis [facility] POC GLUCOSE UNSOLICITED RESULTS 2024-08-26 14:23:00 Chaitanya Lewis [facility] POC GLUCOSE UNSOLICITED RESULTS 2024-08-26 08:50:00 Chaitanya Lewis [facility] XR ABDOMEN 1 VIEW 2024-08-26 06:40:08 Aston Merrill [facility] POC GLUCOSE UNSOLICITED RESULTS 2024-08-26 04:21:00 Chaitanya Lewis [facility] CALCIUM LEVEL IONIZED WHOLE BLOOD 2024-08-26 04:14:00 Ryazantressa, Bhumika [facility] COMPLETE BLOOD COUNT 2024-08-26 04:14:00 Ryazantressa, Al tanya [facility] AUTOMATED DIFFERENTIAL 2024-08-26 04:14:00 Ryazantressa, Bhumika [facility] BASIC METABOLIC PANEL 2024-08-26 04:14:00 Ryazanova, A miguel [facility] COMPLETE BLOOD COUNT W/DIFF AND PLATELET 2024-08-26 04:14:00 RyazanBhumika bustillos [facility] POC GLUCOSE UNSOLICITED RESULTS 2024-08-25 21:21:00 FlorindattChaitanya mcgregor [facility] Epic POC GLUCOSE UNSOLICITED RESULTS 2024-08-25 14:30:00 Chaitanya Lewis [facility] POC GLUCOSE UNSOLICITED RESULTS 2024-08-25 07:37:00 [facility] [facility] CALCIUM LEVEL IONIZED WHOLE BLOOD 2024-08-25 04:22:00 Ryazanova, [facility] COMPLETE BLOOD COUNT 2024-08-25 04:22:00 Ryazantressa, Al tanya [facility] AUTOMATED DIFFERENTIAL 2024-08-25 04:22:00 Ryazanova, Bhumika [facility] BASIC METABOLIC PANEL 2024-08-25 04:22:00 Ryazanova, Balbir miguel [facility] MAGNESIUM LEVEL 2024-08-25 04:22:00 Ryazantressa, Bhumika [facility] Epic PHOSPHORUS LEVEL 2024-08-25 04:22:00 Ryazanova, Bhumika [facility] COMPLETE BLOOD COUNT W/DIFF AND PLATELET 2024-08-25 04:22:00 Ryazantressa, Bhumika [facility] POC GLUCOSE UNSOLICITED RESULTS 2024-08-25 02:12:00 Chaitanya Lewis [facility] POC GLUCOSE UNSOLICITED RESULTS 2024-08-24 20:40:00 Chaitanya Lewis [facility] UA WITH CULTURE IF INDICATED 2024-08-24 19:32:00 Shirin Ching [facility] Epic POC GLUCOSE UNSOLICITED RESULTS 2024-08-24 17:49:00 Chaitanya [facility] POC GLUCOSE UNSOLICITED RESULTS 2024-08-24 13:44:00 Chaitanya Lewis [facility] CT BRAIN WO IV CONTRAST 2024-08-24 13:34:00 Roger Jones [facility] Epic POC GLUCOSE UNSOLICITED RESULTS 2024-08-24 10:40:00 Chaitanya [facility] POC GLUCOSE UNSOLICITED RESULTS 2024-08-24 05:11:00 Ch[facility] UA WITH CULTURE IF INDICATED 2024-08-24 03:44:00 Shirin Ching [facility] CALCIUM LEVEL IONIZED WHOLE BLOOD 2024-08-24 01:02:00 Bhumika Wild [facility] COMPLETE BLOOD COUNT 2024-08-24 01:02:00 Dean Wild [facility] AUTOMATED DIFFERENTIAL 2024-08-24 01:02:00 Bhumika Wild [facility] BASIC METABOLIC PANEL 2024-08-24 01:02:00 Balbir Wild [facility] COMPLETE BLOOD COUNT W/DIFF AND PLATELET 2024-08-24 01:02:00 Bhumika Wild [facility] XR CHEST 1 VIEW 2024-08-24 00:33:52 Memo Ching [facility] POCT Blood Glucose 2024-08-24 00:00:00 [facility] 2024-08-23 22:30:00 Shirin Ching [facility] LACTIC ACID LEVEL 2024-08-23 22:30:00 Brenda Ching [facility] POC GLUCOSE UNSOLICITED RESULTS 2024-08-23 21:39:00 Chaitanya Lewis [facility] POC GLUCOSE UNSOLICITED RESULTS 2024-08-23 16:53:00 Chaitanya Lewis [facility] XR CHEST 1 VIEW 2024-08-23 13:48:15 Chevy Black ra [facility] BLOOD CULTURE 2024-08-23 12:52:00 Chevy Black [facility] POC GLUCOSE UNSOLICITED RESULTS 2024-08-23 11:58:00 Chaitanya Lewis [facility] POC GLUCOSE UNSOLICITED RESULTS 2024-08-23 08:16:00 Bret Newsome [facility] POC GLUCOSE UNSOLICITED RESULTS 2024-08-23 02:48:00 Bret Newsome [facility] CALCIUM LEVEL IONIZED WHOLE BLOOD 2024-08-23 00:01:00 Bhumika Wild [facility] COMPLETE BLOOD COUNT 2024-08-23 00:01:00 Dean Wild [facility] AUTOMATED DIFFERENTIAL 2024-08-23 00:01:00 Bhumika Wild [facility] BASIC METABOLIC PANEL 2024-08-23 00:01:00 Balbir Wild [facility] MAGNESIUM LEVEL 2024-08-23 00:01:00 [facility] 2024-08-23 00:01:00 Bhumika Wild [facility] COMPLETE BLOOD COUNT W/DIFF AND PLATELET 2024-08-23 00:01:00 Bhumika Wild [facility] UA with culture if indicated 2024-08-23 00:00:00 [facility] Respiratory Culture w/Gram Stain 2024-08-23 00:00:00 [facility] POC GLUCOSE UNSOLICITED RESULTS 2024-08-22 22:47:00 Bret Neswome [facility] POC GLUCOSE UNSOLICITED RESULTS 2024-08-22 17:17:00 Bret Newsome [facility] POC GLUCOSE UNSOLICITED RESULTS 2024-08-22 11:41:00 Bret Newsome [facility] POC GLUCOSE UNSOLICITED RESULTS 2024-08-22 04:35:00 Chaitanya Lewis [facility] POC GLUCOSE UNSOLICITED RESULTS 2024-08-22 00:11:00 Chaitanya Lewis [facility] CALCIUM LEVEL IONIZED WHOLE BLOOD 2024-08-22 00:06:00 Bhumika Wild [facility] COMPLETE BLOOD COUNT 2024-08-22 00:06:00 Dean Wild [facility] AUTOMATED DIFFERENTIAL 2024-08-22 00:06:00 Bhumika Wild [facility] BASIC METABOLIC PANEL 2024-08-22 00:06:00 Balbir Wild [facility] COMPLETE BLOOD COUNT W/DIFF AND PLATELET 2024-08-22 00:06:00 Junito Bhumika [facility] POC GLUCOSE UNSOLICITED RESULTS 2024-08-21 22:22:00 Chaitanya Lewis [facility] POC GLUCOSE UNSOLICITED RESULTS 2024-08-21 19:22:00 Chaitanya Lewis [facility] US CAROTID ARTERY DOPPLER BILATERAL 2024-08-21 15:30:00 Zheng Red [facility] TROPONIN I HIGH SENSITIVITY (SINGLE ORDER) 2024-08-21 12:50:00 AmajirionwuBryan [facility] POC GLUCOSE UNSOLICITED RESULTS 2024-08-21 12:05:00 GroChaitanya perales [facility] POC GLUCOSE UNSOLICITED RESULTS 2024-08-21 11:16:00 Chaitanya Lewis [facility] TROPONIN I HIGH SENSITIVITY (SINGLE ORDER) 2024-08-21 05:58:00 Amajirionwu, Bryan Morse [facility] POC GLUCOSE UNSOLICITED RESULTS 2024-08-21 05:21:00 Chaitanya Lewis [facility] CALCIUM LEVEL IONIZED WHOLE BLOOD 2024-08-21 00:45:00 Bhumika Wild [facility] TROPONIN I HIGH SENSITIVITY (SINGLE ORDER) 2024-08-21 00:45:00 AmajirionwuBethanyu Mini [facility] COMPLETE BLOOD COUNT 2024-08-21 00:45:00 Dean Wild [facility] AUTOMATED DIFFERENTIAL 2024-08-21 00:45:00 RyBhumika arora [facility] BASIC METABOLIC PANEL 2024-08-21 00:45:00 RyazanBalbir bustillos miguel [facility] MAGNESIUM LEVEL 2024-08-21 00:45:00 [facility]OS[facility]US [facility] 2024-08-21 00:45:00 RyBhumika arora [facility] COMPLETE BLOOD COUNT W/DIFF AND PLATELET 2024-08-21 00:45:00 Bhumika Wild [facility] POC GLUCOSE UNSOLICITED RESULTS 2024-08-21 00:16:00 Chaitanya Lewis [facility] POC GLUCOSE UNSOLICITED RESULTS 2024-08-20 19:28:00 Chaitanya Lewis [facility] TROPONIN I HIGH SENSITIVITY (SINGLE ORDER) 2024-08-20 18:28:00 Amajirionwu, Bryan Morse [facility] US TRANSCRANIAL DOPPLER (TCD) EMBOLI DETECTION WITHOUT INJECTION 2024-08-20 14:52:00 Chaitanya Lewis [facility] US LOWER EXTREMITY ARTERIAL DOPPLER BILATERAL 2024-08-20 14:40:00 Bryan Martinez [facility] XR ABDOMEN 1 VIEW 2024-08-20 13:53:00 Savi Schwartz [facility] TROPONIN I HIGH SENSITIVITY CARESET (1ST HR) 2024-08-20 13:06:00 Bhumika Wild [facility] TRANSTHORACIC ECHO (TTE) COMPLETE W/ STRAIN 2024-08-20 10:51:24 Roger Jones [facility] MRI BRAIN WO IV CONTRAST 2024-08-20 09:03:00 Bhumika Wild [facility] POC GLUCOSE UNSOLICITED RESULTS 2024-08-20 07:33:00 Chaitanya Lewis [facility] TROPONIN I HIGH SENSITIVITY CARESET 2024-08-20 06:28:00 MatthewazanBhumika bustillos [facility] TROPONIN I HIGH SENSITIVITY CARESET (BASELINE) 2024-08-20 06:28:00 MatthewazanBhumika bustillos [facility] POC GLUCOSE UNSOLICITED RESULTS 2024-08-20 04:28:00 Chaitanya Lewis [facility] EXTUBATION 2024-08-20 03:59:33 Rhonda Hazel [facility] ECG 12-LEAD 2024-08-20 02:23:48 Bryan Martinez [facility] POC GLUCOSE UNSOLICITED RESULTS 2024-08-20 00:27:00 Chaitanya Lewis [facility] POC ARTERIAL BLOOD GAS AND BASIC PANEL UNSOLICITED RESULTS 2024-08-20 00:25:00 Chaitanya Lewis [facility] PROCALCITONIN LEVEL 2024-08-20 00:18:00 Bryan Manning [facility] CALCIUM LEVEL IONIZED WHOLE BLOOD 2024-08-20 00:18:00 Bhumika Wild [facility] TROPONIN I HIGH SENSITIVITY (SINGLE ORDER) 2024-08-20 00:18:00 Bryan Martinez [facility] COMPLETE BLOOD COUNT 2024-08-20 00:18:00 Dean Wild [facility] AUTOMATED DIFFERENTIAL 2024-08-20 00:18:00 Bhumika Wild [facility] BASIC METABOLIC PANEL 2024-08-20 00:18:00 Balbir Wild [facility] LACTIC ACID LEVEL 2024-08-20 00:18:00 Farshad u, Bryan Morse [facility] COMPLETE BLOOD COUNT W/DIFF AND PLATELET 2024-08-20 00:18:00 Bhumika Wild [facility] XR ABDOMEN 1 V FOR PLACEMENT 2024-08-19 22:23:27 Bryan Martinez [facility] TROPONIN I HIGH SENSITIVITY CARESET (1ST HR) 2024-08-19 21:46:00 Bhumika Wild [facility] CORONAVIRUS (COVID-19) FLU RSV DARREL 2024-08-19 21:46:00 Bhumika Wild [facility] DRUG SCREEN URINE (8 DRUGS) 2024-08-19 21:45:00 Bhumika Wild [facility] UA WITH MICROSCOPIC NO CULTURE 2024-08-19 21:45:00 Bhumika Wild [facility] POC GLUCOSE UNSOLICITED RESULTS 2024-08-19 20:08:00 Chaitanya Lewis [facility] CT BRAIN WO IV CONTRAST 2024-08-19 18:56:54 Bhumika Wild [facility] ECG 12-LEAD 2024-08-19 18:10:35 Tin Mendoza [facility] XR CHEST 1 VIEW 2024-08-19 17:24:52 Tin Mendoza [facility] POC ARTERIAL BLOOD GAS AND BASIC PANEL UNSOLICITED RESULTS 2024-08-19 17:21:00 Chaitanya Lewis [facility] ETHANOL LEVEL 2024-08-19 17:14:00 Bhumika Wild Mem [facility] TROPONIN I HIGH SENSITIVITY CARESET 2024-08-19 17:08:00 Bhumika Wild [facility] TROPONIN I HIGH SENSITIVITY CARESET (BASELINE) 2024-08-19 17:08:00 Bhumika Wild [facility] COMPLETE BLOOD COUNT 2024-08-19 17:08:00 Dean Wild [facility] AUTOMATED DIFFERENTIAL 2024-08-19 17:08:00 Bhumika Wild [facility] LIPID PANEL W/CALCULATED LDL 2024-08-19 17:08:00 Roger Jones [facility] CALCIUM LEVEL IONIZED SERUM 2024-08-19 17:08:00 Bhumika Wild [facility] HEMOGLOBIN A1C 2024-08-19 17:08:00 Roger Jones [facility] LACTIC ACID LEVEL 2024-08-19 17:08:00 Bhumika Wild [facility] TYPE AND SCREEN 2024-08-19 17:08:00 Reji, Tin Tyshawn [facility] COMPLETE BLOOD COUNT W/DIFF AND PLATELET 2024-08-19 17:08:00 Bhumika Wild [facility] CT ANGIOGRAM BRAIN NECK STROKE 2024-08-19 13:43:13 Tin Mendoza Tyshawn [facility] CT BRAIN STROKE WO IV CONTRAST 2024-08-19 13:31:00 Tin Mendoza Tyshawn [facility] COMPLETE BLOOD COUNT 2024-08-19 13:29:00 Tin Mendoza Tyshawn [facility] AUTOMATED DIFFERENTIAL 2024-08-19 13:29:00 Tin Meek Tyshawn [facility] BASIC METABOLIC PANEL 2024-08-19 13:29:00 Tin Mendoza Tyshawn [facility] HEPATIC FUNCTION PANEL 2024-08-19 13:29:00 Don Lewis [facility] CREATINE KINASE (CK TOTAL) 2024-08-19 13:29:00 RejiTin bustillos Tyshawn [facility] MAGNESIUM LEVEL 2024-08-19 13:29:00 [facility] PHOSPHORUS LEV[facility] 2024-08-19 13:29:00 Bhumika Wild [facility] HCG TOTAL (QUANTITATIVE) 2024-08-19 13:29:00 Gen ova, Tin Tyshawn [facility] COMPLETE BLOOD COUNT W/DIFF AND PLATELET 2024-08-19 13:29:00 RejiTin bustillos Tyshawn [facility] PROTIME-INR 2024-08-19 13:29:00 Tin Mendoza [facility] PTT 2024-08-19 13:29:00 Tin Mendoza [facility] POC GLUCOSE UNSOLICITED RESULTS 2024-08-19 13:17:00 Morris Hesterson [facility] POCT HEMOGLOBIN A1C TEST 2023-02-18 13:30:00 Rox Sol [facility] HB ECG ROUTINE & RHYTHM STRIP 2022-12-17 20:31:48 Alirio Segundo [facility] PATIENT FINANCIAL POLICY 2022-12-17 20:01:11 Doctor Unassigned, Odum [facility] IMMTRAC2 CONSENT 2022-11-27 05:01:00 Doctor Unas signed, Odum [facility] ASSIGNMENT OF BENEFITS 2022-11-17 18:54:52 Docto r Unassigned, Odum [facility] IR neuro vascular thrombectomy [facility] Blood culture, peripheral #2 [facility] Plan of Care Planned Activity Planned Date Details Comments Source Encounters Start Date/Time End Date/Time Encounter Type Admission Type Attending [facility] Care Department Encounter ID Source 2024-08-19 13:11:00 Inpatient Emergency [facility] General [facility] [id number] 2024-[facility]-15 14:51:37 2024-11-15 14:51:37 Outpatient SFA [facility] [id number] Gopal Kerr Mitchell 2024-11-15 00:00:00 2024-11-15 00:00:00 Outpatient Visit [facility] [id number] Gopal Kerr Mitchell 2024-11-08 10:44:51 2024-11-08 23:59:00 Outpatient Elective ADDI VALENZUELA EOUT EOUT [id number] [facility] 2024-10-12 13:30:00 2024-10-12 13:30:00 Outpatient ODESSA LE [facility] [id number] [facility] 2024-09-27 00:00:00 2024-09-27 20:32:09 Radhaill Narciso Mcclain [facility] 1.2.840.114 350.1.13.70 8.2.7.2.686 [id number] Shari james [facility] 2024-09-05 17:36:00 2024-09-27 12:43:00 Outpatient Elective NARCISO MCCLAIN [facility] Physical Medicine and Rehabilitat ion [id number] [facility] 2024-09-05 17:36:00 2024-09-27 12:43:00 Hospital Encounter Bernadette Norton Narciso McclainSvetlana [facility] 1..840.114 350.1.13.70 8.2.7.2.686 [id number] [facility] 2024-08-19 13:11:00 2024-09-05 17:05:00 Inpatient Emergency FAINA BARTON [facility] General Medicine [id number] [facility] 2024-08-19 13:11:00 2024-09-05 17:05:00 Hospital Encounter Miki Hester, Chaitanya Mahajan, Favian Newsome, Bret Rivas, Jack Barton, Faina [facility] 1..840.114 350.1.13.70 8.2.7.2.686 [id number] [facility] 2023-07-27 00:00:00 2023-07-27 00:00:00 Refill Rox Streeter [facility] 1..840.114 350.1.13.10 4.2.7.2.686 [id number] [facility] 2023-05-05 16:00:00 2023-05-05 16:00:[address] [facility] [id number] [facility] 2023-03-26 00:00:00 2023-03-26 00:00:00 Patient Secure MsRox Bedoya [facility] 1.2.840.114 350.1.13.10 4.2.7.2.686 [id number] [facility] 2023-03-24 13:00:00 2023-03-24 13:58:[address] [facility] [id number] [facility] 2023-03-15 00:00:00 2023-03-15 00:00:00 Telephone Rox Streeter Lu [facility] 1.840.114 350.1.13.10 4.2.7.2.686 [id number] [facility] 2023-02-18 09:00:00 2023-02-18 09:15:00 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, 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 Rogers [facility] 1.840.114 350.1.13.10 4.2.7.2.686 [id number] [facility] 2023-02-18 08:20:00 2023-02-18 08:52:[address] [id number] [facility] 2023-02-18 08:20:00 2023-02-18 08:52:11 Office Visit Rox Streeter [facility] BUILD[facility] 1.840.114 350.1.13.10 4.2.7.2.686 [id number] [facility] 2023-01-14 00:00:00 2023-01-14 00:00:00 Telephone [facility] 1.840.114 350.1.13.10 4.2.7.2.686 [id number] [facility] 2023-01-11 07:52:38 2023-01-11 23:59:00 [facility] [id number] [facility] 2023-01-01 10:00:00 2023-01-01 10:00:00 Outpatient [facility] [id number] [facility] 2022-12-17 14:40:00 2022-12-17 15:50:20 Outpatient R ABIGAIL [facility] [id number] [facility] 2022-12-17 14:40:00 2022-12-17 15:50:20 Office Visit Abigail [facility] BUILDING 1.840.114 350.1.13.10 4.2.7.2.686 [id number] [facility] 2022-12-17 00:00:00 2022-12-17 00:00:00 Orders Only Doctor Unassigned, Odum [facility] 1.2840.114 350.1.13.10 4.2.7.2.686 [id number] [facility] 2022-11-27 00:00:00 2022-11-27 00:00:00 Orders Only Doctor Unassigned, Odum [facility] 1.2840.114 350.1.13.10 4.2.7.2.686 [id number] [facility] 2022-11-24 00:00:00 2022-11-24 00:00:00 Telephone Almita Cox [facility] BUILDING 1.840.114 350.1.13.10 4.2.7.2.686 [id number] [facility] 2022-11-18 11:15:00 2022-11-18 11:30:00 Mechanical Repair Worker Visit Pob, Adc Lab Main Kristen Huff [facility] BUILDING 1.84.114 350.1.13.10 4.2.7.2.686 [id number] [facility] 2022-11-18 11:15:00 2022-11-18 11:15:00 Outpatient Svetlana HUFFKRISTEN [facility] [id number] [facility] 2022-11-17 13:00:00 2022-11-17 13:50:17 Outpatient R ALMITA [facility] [id number] [facility] 2022-11-17 13:00:00 2022-11-17 13:50:17 Office Visit Almita Cox [facility] 1..840.114 350.1.13.10 4.2.7.2.686 [id number] [facility] 2022-11-17 00:00:00 2022-11-17 00:00:00 Orders Only Doctor Unassigned, Odum [facility] 1..840.114 350.1.13.10 4.2.7.2.686 [id number] [facility] Results Test Description Test Time Test Comments Results Result Co mments Source [facility]2025-01-15 08:40:00* Test Item Value Reference Range Interpretation Comme nts POC Glu (test code = 3857746938) 149 mg/dL 70-99 H POC Performing Location (cullen t code = 9703177281) PCU 5 Lab Interpretation (test cod e = 54243-9) Abnormal [facility] [id number] 16:59:13* Test Item Value Reference Range Interpretation Comme nts POC Glu (test code = 8271281306) 138 mg/dL 70-99 H POC Performing Location (cullen t code = 4389333421) PCU 3 Lab Interpretation (test cod e = 04049-4) Abnormal [facility] [id number] 13:16:58* Test Item Value Reference Range Interpretation Comme nts POC Glu (test code = 5697822657) 212 mg/dL 70-99 H POC Performing Location (cullen t code = 6054916008) PCU 3 Lab Interpretation (test cod e = 10349-8) Abnormal [facility] [id number] 07:32:38* Test Item Value Reference Range Interpretation Comme nts POC Glu (test code = 2897012892) 123 mg/dL 70-99 H POC Performing Location (cullen t code = 1306675290) PCU 3 Lab Interpretation (test cod e = 13079-0) Abnormal [facility] [id number] 18:26:01* Test Item Value Reference Range Interpretation Comme nts POC Glu (test code = 8040541123) 110 mg/dL 70-99 H POC Performing Location (cullen t code = 2907660256) PCU 5 Lab Interpretation (test cod e = 34739-9) Abnormal [facility] [id number] 18:26:01* Test Item Value Reference Range Interpretation Comme nts POC Glu (test code = 5562323367) 104 mg/dL 70-99 H POC Performing Location (cullen t code = 1178732716) PCU 5 Lab Interpretation (test cod e = 32028-6) Abnormal [facility] [id number] 12:23:32* Test Item Value Reference Range Interpretation Comme nts POC Glu (test code = 3109760264) 267 mg/dL 70-99 H POC Performing Location (cullen t code = 4097363773) PCU 5 Lab Interpretation (test cod e = 55297-0) Abnormal [facility] [id number] 09:14:36* Test Item Value Reference Range Interpretation Comme nts POC Glu (test code = 2204074184) 278 mg/dL 70-99 H POC Performing Location (cullen t code = 3292452073) PCU 5 Lab Interpretation (test cod e = 30570-2) Abnormal [facility] [id number] 17:40:34* Test Item Value Reference Range Interpretation Comme nts POC Glu (test code = 0263163423) 199 mg/dL 70-99 H POC Performing Location (cullen t code = 0914855012) PCU 3 Lab Interpretation (test cod e = 10238-3) Abnormal [facility] [id number] 12:07:41* Test Item Value Reference Range Interpretation Comme nts POC Glu (test code = 4600799544) 237 mg/dL 70-99 H POC Performing Location (cullen t code = 2367149611) PCU 5 Lab Interpretation (test cod e = 38997-1) Abnormal [facility] [id number] 07:51:49* Test Item Value Reference Range Interpretation Comme nts POC Glu (test code = 0882675370) 114 mg/dL 70-99 H POC Performing Location (cullen t code = 0825639088) PCU 3 Lab Interpretation (test cod e = 79364-4) Abnormal [facility] Bysnqda3118-19-27 16:15:53* Test Item Value Reference Range Interpretation Comme nts POC Glu (test code = 8553482365) 153 mg/dL 70-99 H POC Performing Location (cullen t code = 8557206111) PCU 3 Lab Interpretation (test cod e = 49356-0) Abnormal [facility] Bnqcuox5987-15-64 11:24:25* Test Item Value Reference Range Interpretation Comme nts POC Glu (test code = 5036825488) 195 mg/dL 70-99 H POC Performing Location (cullen t code = 4145048850) PCU 3 Lab Interpretation (test cod e = 31876-8) Abnormal [facility] Ilpglkl3358-00-06 07:21:39* Test Item Value Reference Range Interpretation Comme nts POC Glu (test code = 5024443851) 107 mg/dL 70-99 H POC Performing Location (cullen t code = 4626649093) PCU 3 Lab Interpretation (test cod e = 50349-7) Abnormal [facility] Aqruxve7602-38-83 16:28:03* Test Item Value Reference Range Interpretation Comme nts POC Glu (test code = 8867022590) 305 mg/dL 70-99 H POC Performing Location (cullen t code = 1116626429) PCU 5 Lab Interpretation (test cod e = 04406-7) Abnormal [facility] Zdqvnxw7098-95-45 12:01:15* Test Item Value Reference Range Interpretation Comme nts POC Glu (test code = 1107757085) 120 mg/dL 70-99 H POC Performing Location (cullen t code = 7632311280) PCU 3 Lab Interpretation (test cod e = 69265-6) Abnormal [facility] Nhooser9262-07-70 07:47:28* Test Item Value Reference Range Interpretation Comme nts POC Glu (test code = 5566042015) 103 mg/dL 70-99 H POC Performing Location (cullen t code = 7235114035) PCU 5 Lab Interpretation (test cod e = 25874-8) Abnormal [facility] Wdjurhj7949-87-13 17:10:56* Test Item Value Reference Range Interpretation Comme nts POC Glu (test code = 2398380378) 231 mg/dL 70-99 H POC Glu Comment 1 (test code = 9016457279) Notified RN/MD POC Performing Location (clulen t code = 6909142620) PCU 3 Lab Interpretation (test cod e = 10228-4) Abnormal [facility] Amfbujx8719-52-86 12:43:51* Test Item Value Reference Range Interpretation Comme nts POC Glu (test code = 4883906226) 63 mg/dL 70-99 L POC Glu Comment 1 (test code = 9490733652) Notified RN/MD POC Performing Location (cullen t code = 2897099853) PCU 3 Lab Interpretation (test cod e = 66192-5) Abnormal [facility] Jygychk3692-00-27 11:46:07* Test Item Value Reference Range Interpretation Comme nts POC Glu (test code = 9277868540) 148 mg/dL 70-99 H POC Glu Comment 1 (test code = 4464368918) Notified RN/MD POC Performing Location (cullen t code = 1749006484) PCU 5 Lab Interpretation (test cod e = 42111-3) Abnormal [facility] Duiziww3944-31-68 11:45:24* Test Item Value Reference Range Interpretation Comme nts POC Glu (test code = 7079439042) 194 mg/dL 70-99 H POC Performing Location (cullen t code = 7262676062) PCU 3 Lab Interpretation (test cod e = 12175-0) Abnormal [facility] Wymwpia1822-32-24 17:09:42* Test Item Value Reference Range Interpretation Comme nts POC Glu (test code = 1831623013) 58 mg/dL 70-99 L POC Performing Location (cullen t code = 7064930792) PCU 3 Lab Interpretation (test cod e = 19885-6) Abnormal [facility] Nbhwgvy9259-06-66 12:38:48* Test Item Value Reference Range Interpretation Comme nts POC Glu (test code = 4285702238) 177 mg/dL 70-99 H POC Performing Location (cullen t code = 6604870520) PCU 3 Lab Interpretation (test cod e = 87592-8) Abnormal [facility] Qxdvadu7443-73-55 08:13:25* Test Item Value Reference Range Interpretation Comme nts POC Glu (test code = 5841706063) 122 mg/dL 70-99 H POC Performing Location (cullen t code = 3004312881) PCU 5 Lab Interpretation (test cod e = 06230-8) Abnormal [facility] Oiunxye8664-96-12 16:28:15* Test Item Value Reference Range Interpretation Comme nts POC Glu (test code = 1061915512) 174 mg/dL 70-99 H POC Performing Location (cullen t code = 9993508771) PCU 5 Lab Interpretation (test cod e = 19150-7) Abnormal [facility] Ewibdsd9954-22-38 16:28:15* Test Item Value Reference Range Interpretation Comme nts POC Glu (test code = 5456362207) 292 mg/dL 70-99 H POC Performing Location (cullen t code = 4833396662) PCU 5 Lab Interpretation (test cod e = 72804-6) Abnormal [facility] Cendlhq3539-56-64 09:16:57* Test Item Value Reference Range Interpretation Comme nts POC Glu (test code = 4814036678) 88 mg/dL 70-99 POC Performing Location (cullen t code = 5538113409) PCU 5 [facility] Gbnpbaa0035-59-73 17:07:34* Test Item Value Reference Range Interpretation Comme nts POC Glu (test code = 9645749662) 168 mg/dL 70-99 H POC Performing Location (cullen t code = 5082581108) PCU 5 Lab Interpretation (test cod e = 67790-4) Abnormal [facility] Iyzhlni7537-73-87 14:38:17* Test Item Value Reference Range Interpretation Comme nts POC Glu (test code = 9753607818) 179 mg/dL 70-99 H POC Performing Location (cullen t code = 3696923732) PCU 3 Lab Interpretation (test cod e = 99274-4) Abnormal [facility] Niqneqg1845-92-15 12:12:17* Test Item Value Reference Range Interpretation Comme nts POC Glu (test code = 0582850894) 203 mg/dL 70-99 H POC Performing Location (cullen t code = 6832672286) PCU 3 Lab Interpretation (test cod e = 95967-4) Abnormal [facility] Unovwhl7919-51-86 08:17:44* Test Item Value Reference Range Interpretation Comme nts POC Glu (test code = 4395604929) 93 mg/dL 70-99 POC Performing Location (cullen t code = 5937555249) PCU 5 [facility] Qlqpmth2776-94-34 08:17:07* Test Item Value Reference Range Interpretation Comme nts POC Glu (test code = 3870963612) 69 mg/dL 70-99 L POC Performing Location (cullen t code = 6297835584) PCU 5 Lab Interpretation (test cod e = 43328-2) Abnormal [facility] Wjoaxgp2381-00-45 07:29:48* Test Item Value Reference Range Interpretation Comme nts POC Glu (test code = 6978277436) 64 mg/dL 70-99 L POC Performing Location (cullen t code = 4742956170) PCU 5 Lab Interpretation (test cod e = 07126-7) Abnormal [facility] Kodyqdb9465-99-02 17:39:53* Test Item Value Reference Range Interpretation Comme nts POC Glu (test code = 0185286184) 222 mg/dL 70-99 H POC Performing Location (cullen t code = 9921553213) PCU 5 Lab Interpretation (test cod e = 27073-3) Abnormal [facility] Rrecskv2172-62-90 11:47:56* Test Item Value Reference Range Interpretation Comme nts POC Glu (test code = 4716528315) 139 mg/dL 70-99 H POC Performing Location (cullen t code = 8331915047) PCU 3 Lab Interpretation (test cod e = 34208-2) Abnormal [facility] Dinxwhc4295-08-39 08:05:49* Test Item Value Reference Range Interpretation Comme nts POC Glu (test code = 5126790199) 86 mg/dL 70-99 POC Performing Location (cullen t code = 7070605093) PCU 3 [facility] Azjiwme1276-15-94 23:51:49* Test Item Value Reference Range Interpretation Comme nts POC Glu (test code = 4943319442) 114 mg/dL 70-99 H POC Performing Location (cullen t code = 5341107350) PCU 3 Lab Interpretation (test cod e = 99501-6) Abnormal [facility] Fbtgelq9481-82-59 11:41:20* Test Item Value Reference Range Interpretation Comme nts POC Glu (test code = 5855129354) 191 mg/dL 70-99 H POC Performing Location (cullen t code = 5670462775) PCU 5 Lab Interpretation (test cod e = 38106-0) Abnormal [facility] Vuuueam8756-94-37 08:37:19* Test Item Value Reference Range Interpretation Comme nts POC Glu (test code = 0680182375) 112 mg/dL 70-99 H POC Performing Location (cullen t code = 5058162294) PCU 3 Lab Interpretation (test cod e = 62429-3) Abnormal [facility] Fjwziqn5269-23-40 17:05:51* Test Item Value Reference Range Interpretation Comme nts POC Glu (test code = 2900940414) 281 mg/dL 70-99 H POC Performing Location (cullen t code = 6414344343) PCU 5 Lab Interpretation (test cod e = 14394-4) Abnormal [facility] Olrykrm1059-49-12 14:36:19* Test Item Value Reference Range Interpretation Comme nts POC Glu (test code = 7520719254) 223 mg/dL 70-99 H POC Performing Location (cullen t code = 8009334819) PCU 3 Lab Interpretation (test cod e = 88339-7) Abnormal [facility] Sfosaaz3377-46-88 12:12:42* Test Item Value Reference Range Interpretation Comme nts POC Glu (test code = 5937670101) 138 mg/dL 70-99 H POC Performing Location (cullen t code = 1674473395) PCU 3 Lab Interpretation (test cod e = 67196-4) Abnormal [facility] Vbdtxql3853-20-54 07:41:20* Test Item Value Reference Range Interpretation Comme nts POC Glu (test code = 5727444732) 129 mg/dL 70-99 H POC Performing Location (cullen t code = 6123358470) PCU 5 Lab Interpretation (test cod e = 20005-6) Abnormal [facility] Gbiqbbo9109-51-51 17:05:53* Test Item Value Reference Range Interpretation Comme nts POC Glu (test code = 0357514740) 93 mg/dL 70-99 POC Performing Location (cullen t code = 8189785553) PCU 3 [facility] Kewctdi3508-45-29 12:43:47* Test Item Value Reference Range Interpretation Comme nts POC Glu (test code = 5922108768) 202 mg/dL 70-99 H POC Performing Location (cullen t code = 0918376467) PCU 5 Lab Interpretation (test cod e = 01083-3) Abnormal [facility] Ohknbne6663-78-76 07:44:06* Test Item Value Reference Range Interpretation Comme nts POC Glu (test code = 6002769842) 75 mg/dL 70-99 POC Performing Location (cullen t code = 1218048553) PCU 5 [facility] Ibojdsq9964-15-95 16:45:10* Test Item Value Reference Range Interpretation Comme nts POC Glu (test code = 2451258900) 146 mg/dL 70-99 H POC Performing Location (cullen t code = 8782114839) PCU 5 Lab Interpretation (test cod e = 73694-0) Abnormal [facility] Xuhcfem8669-33-42 11:47:15* Test Item Value Reference Range Interpretation Comme nts POC Glu (test code = 7376793699) 237 mg/dL 70-99 H POC Performing Location (cullen t code = 6850440588) PCU 3 Lab Interpretation (test cod e = 33794-9) Abnormal [facility] Uprbabi5938-58-58 07:55:57* Test Item Value Reference Range Interpretation Comme nts POC Glu (test code = 1663226260) 87 mg/dL 70-99 POC Performing Location (cullen t code = 4039965219) PCU 5 [facility] Vbcjiki0321-40-51 17:22:35* Test Item Value Reference Range Interpretation Comme nts POC Glu (test code = 6554172717) 208 mg/dL 70-99 H POC Performing Location (cullen t code = 3601660313) PCU 3 Lab Interpretation (test cod e = 97714-7) Abnormal [facility]2024-12-31 14:48:05* Test Item Value Reference Range Interpretation Comme nts POC Glu (test code = 1402075739) 64 mg/dL 70-99 L POC Performing Location (cullen t code = 6226259484) PCU 3 Lab Interpretation (test cod e = 72125-0) Abnormal [facility] Uhbqvdo4438-22-86 13:26:58* Test Item Value Reference Range Interpretation Comme nts POC Glu (test code = 2284104527) 125 mg/dL 70-99 H POC Performing Location (cullen t code = 2923013245) PCU 5 Lab Interpretation (test cod e = 01015-3) Abnormal [facility]2024-12-31 12:09:36* Test Item Value Reference Range Interpretation Comme nts POC Glu (test code = 8833391911) 64 mg/dL 70-99 L POC Performing Location (cullen t code = 9530975083) PCU 3 Lab Interpretation (test cod e = 02191-6) Abnormal [facility]2024-12-31 07:47:34* Test Item Value Reference Range Interpretation Comme nts POC Glu (test code = 3696419053) 107 mg/dL 70-99 H POC Performing Location (cullen t code = 5751552552) PCU 3 Lab Interpretation (test cod e = 26056-3) Abnormal [facility]2024-12-30 16:43:18* Test Item Value Reference Range Interpretation Comme nts POC Glu (test code = 4004327632) 103 mg/dL 70-99 H POC Performing Location (cullen t code = 8841195562) PCU 3 Lab Interpretation (test cod e = 33537-5) Abnormal [place] [address] pwuc4515-40-56 13:05:19* Test Item Value Reference Range Interpretation Comme nts Ventricular Rate (test code = 9129819606) BPM Atrial Rate (test code = 9848116318) BPM HI Interval (test code = 8604244371) 146 ms QRS Duration (test code = 0552958654) 70 ms QT/QTc (test code = 7689238031) 382 ms QTc Calculation (test code = 6361805638) 472 ms P-[place] (test code = 7657773170) degrees R-[place] (test code = 7919710977) degrees T-[place] (test code = 0480465092) degrees IMP (test code = IMP) PXN (test code = PXN) [facility] Wcfnlde1648-81-66 12:16:14* Test Item Value Reference Range Interpretation Comme nts POC Glu (test code = 2978563857) 183 mg/dL 70-99 H POC Performing Location (cullen t code = 7406233819) PCU 3 Lab Interpretation (test cod e = 45911-2) Abnormal [facility]2024-12-30 08:16:13* Test Item Value Reference Range Interpretation Comme nts POC Glu (test code = 7950592693) 89 mg/dL 70-99 POC Performing Location (cullen t code = 4077950234) PCU 3 [facility] Eovvsjo1610-41-21 16:57:22* Test Item Value Reference Range Interpretation Comme nts POC Glu (test code = 9175771018) 245 mg/dL 70-99 H POC Performing Location (cullen t code = 7764471880) PCU 3 Lab Interpretation (test cod e = 87761-8) Abnormal [facility] Ckvzbha8564-71-54 12:26:55* Test Item Value Reference Range Interpretation Comme nts POC Glu (test code = 1514102757) 198 mg/dL 70-99 H POC Performing Location (cullen t code = 9688800114) PCU 3 Lab Interpretation (test cod e = 92594-6) Abnormal [facility] Kduuugy7177-23-20 07:59:15* Test Item Value Reference Range Interpretation Comme nts POC Glu (test code = 6739140849) 94 mg/dL 70-99 POC Performing Location (cullen t code = 8563803399) PCU 3 [facility] Hskcjtr3281-10-52 17:10:09* Test Item Value Reference Range Interpretation Comme nts POC Glu (test code = 5223331956) 138 mg/dL 70-99 H POC Performing Location (cullen t code = 8932662928) PCU 3 Lab Interpretation (test cod e = 76663-9) Abnormal [facility] Uvaeouc3776-40-80 12:09:12* Test Item Value Reference Range Interpretation Comme nts POC Glu (test code = 1956220776) 164 mg/dL 70-99 H POC Performing Location (cullen t code = 5822220277) PCU 3 Lab Interpretation (test cod e = 22681-5) Abnormal [facility] Bzhqrcc8632-23-44 09:12:10* Test Item Value Reference Range Interpretation Comme nts POC Glu (test code = 4097148340) 77 mg/dL 70-99 POC Performing Location (cullen t code = 9277042834) PCU 3 [facility] Dhosxhm7039-81-21 17:27:07* Test Item Value Reference Range Interpretation Comme nts POC Glu (test code = 8312610403) 247 mg/dL 70-99 H POC Performing Location (cullen t code = 3780246628) PCU 3 Lab Interpretation (test cod e = 40257-3) Abnormal [facility] Jktggrk8613-26-97 14:10:56* Test Item Value Reference Range Interpretation Comme nts POC Glu (test code = 1709970067) 165 mg/dL 70-99 H POC Performing Location (cullen t code = 8944083048) PCU 3 Lab Interpretation (test cod e = 71666-0) Abnormal [facility] Iqnsznn4806-19-79 11:53:35* Test Item Value Reference Range Interpretation Comme nts POC Glu (test code = 7930275412) 158 mg/dL 70-99 H POC Performing Location (cullen t code = 5534879157) PCU 3 Lab Interpretation (test cod e = 13227-6) Abnormal [facility] Mfmlsrk5851-07-55 11:11:30* Test Item Value Reference Range Interpretation Comme nts POC Glu (test code = 5354601518) 157 mg/dL 70-99 H POC Performing Location (cullen t code = 1168504007) PCU 3 Lab Interpretation (test cod e = 67330-0) Abnormal [facility] Mstmshh5096-15-75 08:08:23* Test Item Value Reference Range Interpretation Comme nts POC Glu (test code = 1765850968) 110 mg/dL 70-99 H POC Performing Location (cullen t code = 2361899086) PCU 3 Lab Interpretation (test cod e = 28793-4) Abnormal [facility] Csqifvk9657-94-54 05:53:16* Test Item Value Reference Range Interpretation Comme nts POC Glu (test code = 2988495503) 101 mg/dL 70-99 H POC Performing Location (cullen t code = 7554777762) PCU 3 Lab Interpretation (test cod e = 09731-8) Abnormal [facility] Iwvzpdq8234-10-17 00:08:58* Test Item Value Reference Range Interpretation Comme nts POC Glu (test code = 8696615671) 153 mg/dL 70-99 H POC Performing Location (cullen t code = 7689710689) PCU 3 Lab Interpretation (test cod e = 86130-8) Abnormal [facility] Cosehbt3274-06-35 17:13:03* Test Item Value Reference Range Interpretation Comme nts POC Glu (test code = 1029611362) 160 mg/dL 70-99 H POC Performing Location (cullen t code = 6958177807) PCU 3 Lab Interpretation (test cod e = 11054-7) Abnormal [facility] Vyudbzq8577-38-09 12:06:14* Test Item Value Reference Range Interpretation Comme nts POC Glu (test code = 0896622354) 197 mg/dL 70-99 H POC Performing Location (cullen t code = 0050460230) PCU 3 Lab Interpretation (test cod e = 75579-6) Abnormal [facility] Pfqyrkb0096-83-14 09:05:43* Test Item Value Reference Range Interpretation Comme nts POC Glu (test code = 1536279308) 211 mg/dL 70-99 H POC Performing Location (cullen t code = 9629136272) PCU 3 Lab Interpretation (test cod e = 12051-5) Abnormal [facility] Mpupgyi7573-53-41 07:47:48* Test Item Value Reference Range Interpretation Comme nts POC Glu (test code = 9892288308) 94 mg/dL 70-99 POC Performing Location (cullen t code = 4482761042) PCU 3 [facility] Oadrqwv4435-22-39 07:23:08* Test Item Value Reference Range Interpretation Comme nts POC Glu (test code = 9515737699) 60 mg/dL 70-99 L POC Performing Location (cullen t code = 8087842471) PCU 3 Lab Interpretation (test cod e = 81646-9) Abnormal [facility] Vjbcmie5932-61-02 21:19:57* Test Item Value Reference Range Interpretation Comme nts POC Glu (test code = 6430824093) 180 mg/dL 70-99 H POC Performing Location (cullen t code = 9880900682) PCU 3 Lab Interpretation (test cod e = 83641-8) Abnormal [facility] Rvqkffq9482-74-42 18:29:12* Test Item Value Reference Range Interpretation Comme nts POC Glu (test code = 1796315259) 381 mg/dL 70-99 H POC Performing Location (cullen t code = 7997470433) PCU 3 Lab Interpretation (test cod e = 39896-3) Abnormal [facility]2024-12-25 15:38:50* Test Item Value Reference Range Interpretation Comme nts POC Glu (test code = 5963739456) 393 mg/dL 70-99 H POC Performing Location (cullen t code = 0762635494) PCU 3 Lab Interpretation (test cod e = 03091-6) Abnormal [facility] Vxnhpag9387-85-24 11:42:06* Test Item Value Reference Range Interpretation Comme nts POC Glu (test code = 8855451300) 126 mg/dL 70-99 H POC Performing Location (cullen t code = 2803449209) PCU 3 Lab Interpretation (test cod e = 34108-0) Abnormal [facility] Mhjwkrz6561-62-19 08:09:20* Test Item Value Reference Range Interpretation Comme nts POC Glu (test code = 3131453940) 107 mg/dL 70-99 H POC Performing Location (cullen t code = 8986068284) PCU 3-C Lab Interpretation (test cod e = 91164-7) Abnormal [facility] Ltdekci7246-99-95 20:25:09* Test Item Value Reference Range Interpretation Comme nts POC Glu (test code = 5730932831) 167 mg/dL 70-99 H POC Performing Location (cullen t code = 7850375821) PCU 3-C Lab Interpretation (test cod e = 29066-2) Abnormal [facility] Crsxhfs5456-81-95 16:38:40* Test Item Value Reference Range Interpretation Comme nts POC Glu (test code = 5138071550) 213 mg/dL 70-99 H POC Performing Location (cullen t code = 1036081575) J5 NEURO Lab Interpretation (test cod e = 54557-5) Abnormal [facility] Vmvzpvc7368-22-63 12:33:57* Test Item Value Reference Range Interpretation Comme nts POC Glu (test code = 4922527497) 166 mg/dL 70-99 H POC Performing Location (cullen t code = 7249237799) J5 NEURO Lab Interpretation (test cod e = 52272-9) Abnormal [facility] Xkvwzyz5613-65-47 08:39:24* Test Item Value Reference Range Interpretation Comme nts POC Glu (test code = 9300590585) 115 mg/dL 70-99 H POC Performing Location (cullen t code = 6236260468) J5 NEURO Lab Interpretation (test cod e = 22217-9) Abnormal [facility] Zplpawo9875-16-63 00:02:38* Test Item Value Reference Range Interpretation Comme nts POC Glu (test code = 4658632114) 179 mg/dL 70-99 H POC Performing Location (cullen t code = 7599345771) J5 NEURO Lab Interpretation (test cod e = 29260-2) Abnormal [facility] Iuddsrz4383-79-13 17:28:58* Test Item Value Reference Range Interpretation Comme nts POC Glu (test code = 5920217124) 256 mg/dL 70-99 H POC Performing Location (cullen t code = 5046352151) J5 NEURO Lab Interpretation (test cod e = 13212-1) Abnormal [facility] Aldvnxg3202-91-85 11:55:30* Test Item Value Reference Range Interpretation Comme nts POC Glu (test code = 8598828304) 113 mg/dL 70-99 H POC Performing Location (cullen t code = 4297174658) J5 NEURO Lab Interpretation (test cod e = 90532-2) Abnormal [place] [address] yvbs2316-54-95 11:51:09* Test Item Value Reference Range Interpretation Comme nts Ventricular Rate (test code = 8971172301) BPM Atrial Rate (test code = 6799494276) BPM HI Interval (test code = 4605361801) 146 ms QRS Duration (test code = 0133793390) 68 ms QT/QTc (test code = 0402165908) 374 ms QTc Calculation (test code = 9390167468) 447 ms P-[place] (test code = 2327986026) degrees R-[place] (test code = 7478125493) degrees T-[place] (test code = 1442412645) degrees IMP (test code = IMP) PXN (test code = PXN) [facility] Exfrpgi2140-16-96 09:05:07* Test Item Value Reference Range Interpretation Comme nts POC Glu (test code = 3189703988) 91 mg/dL 70-99 POC Performing Location (cullen t code = 7685346614) J5 NEURO [facility] Cjntyff2338-89-15 06:16:18* Test Item Value Reference Range Interpretation Comme nts POC Glu (test code = 1784115692) 86 mg/dL 70-99 POC Performing Location (cullen t code = 0419977144) J5 NEURO [facility] Wgtyuoz7960-49-56 22:00:28* Test Item Value Reference Range Interpretation Comme nts POC Glu (test code = 0283810208) 122 mg/dL 70-99 H POC Performing Location (cullen t code = 2306330265) J5 NEURO Lab Interpretation (test cod e = 47586-2) Abnormal [facility] Ktbckem6815-08-28 17:37:17* Test Item Value Reference Range Interpretation Comme nts POC Glu (test code = 6641434643) 354 mg/dL 70-99 H POC Performing Location (cullen t code = 4049752768) J5 NEURO Lab Interpretation (test cod e = 97904-6) Abnormal [facility] Lereyrs0032-20-12 07:25:15* Test Item Value Reference Range Interpretation Comme nts POC Glu (test code = 3877705175) 236 mg/dL 70-99 H POC Performing Location (cullen t code = 7127896317) J5E NEURO Lab Interpretation (test cod e = 59229-8) Abnormal [facility] Eedyhri4314-22-87 21:07:28* Test Item Value Reference Range Interpretation Comme nts POC Glu (test code = 1909140577) 149 mg/dL 70-99 H POC Performing Location (cullen t code = 8886352500) J5 NEURO Lab Interpretation (test cod e = 16852-9) Abnormal [facility] Czuqjis0192-52-91 17:39:48* Test Item Value Reference Range Interpretation Comme nts POC Glu (test code = 7516911548) 119 mg/dL 70-99 H POC Performing Location (cullen t code = 4456175484) J5 NEURO Lab Interpretation (test cod e = 10333-6) Abnormal [facility] Oqequft6010-93-78 12:08:47* Test Item Value Reference Range Interpretation Comme nts POC Glu (test code = 8944144218) 214 mg/dL 70-99 H POC Glu Comment 1 (test code = 2279194251) Notified RN/MD POC Performing Location (cullen t code = 8521553267) J5E NEURO Lab Interpretation (test cod e = 83676-6) Abnormal [facility] Ijqddpg9612-25-65 05:31:07* Test Item Value Reference Range Interpretation Comme nts POC Glu (test code = 3574763667) 172 mg/dL 70-99 H POC Performing Location (cullen t code = 1347618465) J5 NEURO Lab Interpretation (test cod e = 42351-7) Abnormal [facility] Gdrdnqf4098-83-91 23:32:57* Test Item Value Reference Range Interpretation Comme nts POC Glu (test code = 9203690813) 231 mg/dL 70-99 H POC Performing Location (cullen t code = 7018219964) J5 NEURO Lab Interpretation (test cod e = 89560-5) Abnormal [facility] Yidrbnu9113-81-87 18:49:53* Test Item Value Reference Range Interpretation Comme nts POC Glu (test code = 7254795814) 293 mg/dL 70-99 H POC Performing Location (cullen t code = 2004721146) J5 NEURO Lab Interpretation (test cod e = 60263-9) Abnormal [facility] Uxmsjez4354-31-74 14:29:58* Test Item Value Reference Range Interpretation Comme nts POC Glu (test code = 7620719519) 170 mg/dL 70-99 H POC Performing Location (cullen t code = 4642751917) J5 NEURO Lab Interpretation (test cod e = 01653-3) Abnormal [facility] Vghgdyy5182-65-19 09:03:44* Test Item Value Reference Range Interpretation Comme nts POC Glu (test code = 0752962875) 161 mg/dL 70-99 H POC Performing Location (cullen t code = 6090970533) J5 NEURO Lab Interpretation (test cod e = 84115-5) Abnormal [facility] Xzrdpft5819-14-40 06:01:26* Test Item Value Reference Range Interpretation Comme nts POC Glu (test code = 2065678981) 129 mg/dL 70-99 H POC Performing Location (cullen t code = 8286795896) J5 NEURO Lab Interpretation (test cod e = 67437-3) Abnormal [facility] Cvutyam5771-09-27 23:05:01* Test Item Value Reference Range Interpretation Comme nts POC Glu (test code = 9402791006) 226 mg/dL 70-99 H POC Performing Location (cullen t code = 7225001773) J5 NEURO Lab Interpretation (test cod e = 68632-8) Abnormal [facility] Fntpilx0753-38-29 16:26:26* Test Item Value Reference Range Interpretation Comme nts POC Glu (test code = 8877078790) 187 mg/dL 70-99 H POC Performing Location (cullen t code = 6352746201) J5 NEURO Lab Interpretation (test cod e = 60247-1) Abnormal [facility] Namudax7515-07-87 12:37:47* Test Item Value Reference Range Interpretation Comme nts POC Glu (test code = 6553215262) 132 mg/dL 70-99 H POC Performing Location (cullen t code = 3880452099) J5 NEURO Lab Interpretation (test cod e = 38483-3) Abnormal [facility] Oeynemx6324-88-01 10:49:58* Test Item Value Reference Range Interpretation Comme nts POC Glu (test code = 2689609665) 71 mg/dL 70-99 POC Performing Location (cullen t code = 9776915311) J5 NEURO [facility] Mnskekt6504-65-28 01:45:27* Test Item Value Reference Range Interpretation Comme nts POC Glu (test code = 9554718953) 181 mg/dL 70-99 H POC Performing Location (cullen t code = 6492636546) J5 NEURO Lab Interpretation (test cod e = 09070-1) Abnormal [facility] Etyiocj4556-89-22 21:21:37* Test Item Value Reference Range Interpretation Comme nts POC Glu (test code = 9485072039) 142 mg/dL 70-99 H POC Performing Location (cullen t code = 6073594632) J5 NEURO Lab Interpretation (test cod e = 21266-3) Abnormal [facility] 12 qjdy8459-43-08 20:02:07* Test Item Value Reference Range Interpretation Comme nts Ventricular Rate (test code = 3938413713) BPM Atrial Rate (test code = 8108747832) BPM HI Interval (test code = 0995229220) 140 ms QRS Duration (test code = 1443143018) 74 ms QT/QTc (test code = 4698786594) 386 ms QTc Calculation (test code = 1987550910) 467 ms P-[place] (test code = 5024200490) degrees R-[place] (test code = 6113060285) degrees T-[place] (test code = 6458620353) degrees IMP (test code = IMP) PXN (test code = PXN) [facility] Zycdbfo4902-19-15 18:00:05* Test Item Value Reference Range Interpretation Comme nts POC Glu (test code = 8450804470) 283 mg/dL 70-99 H POC Performing Location (cullen t code = 3450650289) J5 NEURO Lab Interpretation (test cod e = 48632-7) Abnormal [facility] Mqbqiqy6918-55-65 13:56:07* Test Item Value Reference Range Interpretation Comme nts POC Glu (test code = 5426343021) 182 mg/dL 70-99 H POC Performing Location (cullen t code = 8472833261) J5 NEURO Lab Interpretation (test cod e = 54036-6) Abnormal [facility] Bkabikm4293-48-97 07:20:16* Test Item Value Reference Range Interpretation Comme nts POC Glu (test code = 1337867038) 93 mg/dL 70-99 POC Performing Location (cullen t code = 2072676480) J5E NEURO [facility] Irytwpo6604-27-61 23:32:53* Test Item Value Reference Range Interpretation Comme nts POC Glu (test code = 1809623422) 119 mg/dL 70-99 H POC Performing Location (cullen t code = 4972312819) J5E NEURO Lab Interpretation (test cod e = 76233-3) Abnormal [facility] Ywruoae2415-76-65 18:10:57* Test Item Value Reference Range Interpretation Comme nts POC Glu (test code = 5090130529) 203 mg/dL 70-99 H POC Performing Location (cullen t code = 8103383487) J5E NEURO Lab Interpretation (test cod e = 25664-0) Abnormal [facility] Daosvsh9883-54-12 12:40:37* Test Item Value Reference Range Interpretation Comme nts POC Glu (test code = 0910457951) 190 mg/dL 70-99 H POC Performing Location (cullen t code = 3860147663) J5 NEURO Lab Interpretation (test cod e = 09914-8) Abnormal [facility] Xyzhntf9694-53-96 06:35:52* Test Item Value Reference Range Interpretation Comme nts POC Glu (test code = 7708826136) 362 mg/dL 70-99 H POC Performing Location (cullen t code = 8070211603) J5E NEURO Lab Interpretation (test cod e = 97401-6) Abnormal [facility] Saknmuk5176-56-77 01:33:54* Test Item Value Reference Range Interpretation Comme nts POC Glu (test code = 2577261708) 115 mg/dL 70-99 H POC Performing Location (cullen t code = 8938596911) J5E NEURO Lab Interpretation (test cod e = 02297-0) Abnormal [facility] Abyhsmo6999-97-65 00:37:07* Test Item Value Reference Range Interpretation Comme nts POC Glu (test code = 6386189718) 66 mg/dL 70-99 L POC Performing Location (cullen t code = 4502926786) J5E NEURO Lab Interpretation (test cod e = 28478-1) Abnormal [facility] Wugleml4492-48-74 17:31:47* Test Item Value Reference Range Interpretation Comme nts POC Glu (test code = 3891862865) 292 mg/dL 70-99 H POC Performing Location (cullen t code = 7253784001) J5E NEURO Lab Interpretation (test cod e = 47002-0) Abnormal [facility] Fbqexqu4032-14-08 11:48:09* Test Item Value Reference Range Interpretation Comme nts POC Glu (test code = 3238665066) 173 mg/dL 70-99 H POC Performing Location (cullen t code = 0052195616) J5 NEURO Lab Interpretation (test cod e = 59600-4) Abnormal [facility] Tdmfeip8590-83-69 05:38:31* Test Item Value Reference Range Interpretation Comme nts POC Glu (test code = 8541218989) 299 mg/dL 70-99 H POC Performing Location (cullen t code = 1031842000) J5 NEURO Lab Interpretation (test cod e = 81493-7) Abnormal [facility] Embaaga8168-89-67 23:28:12* Test Item Value Reference Range Interpretation Comme nts POC Glu (test code = 3284754438) 135 mg/dL 70-99 H POC Performing Location (cullen t code = 9850518464) J5 NEURO Lab Interpretation (test cod e = 69857-7) Abnormal [facility] Nnipvjl8995-85-40 17:31:17* Test Item Value Reference Range Interpretation Comme nts POC Glu (test code = 8973245710) 263 mg/dL 70-99 H POC Performing Location (cullen t code = 6943703785) J5 NEURO Lab Interpretation (test cod e = 73339-3) Abnormal [facility] Ywmzxqw4478-67-07 11:29:26* Test Item Value Reference Range Interpretation Comme nts POC Glu (test code = 1612288533) 310 mg/dL 70-99 H POC Performing Location (cullen t code = 4592911516) J5E NEURO Lab Interpretation (test cod e = 00016-8) Abnormal [facility] Xlbzbpp7177-02-65 05:26:01* Test Item Value Reference Range Interpretation Comme nts POC Glu (test code = 4394450758) 196 mg/dL 70-99 H POC Performing Location (cullen t code = 9130067069) J5 NEURO Lab Interpretation (test cod e = 73604-5) Abnormal [facility] Xoowfvr8268-62-72 04:21:25* Test Item Value Reference Range Interpretation Comme nts POC Glu (test code = 9435104227) 126 mg/dL 70-99 H POC Performing Location (cullen t code = 4685907143) J5 NEURO Lab Interpretation (test cod e = 70205-3) Abnormal [facility] Kthxuki0644-68-70 23:18:53* Test Item Value Reference Range Interpretation Comme nts POC Glu (test code = 2527769909) 302 mg/dL 70-99 H POC Performing Location (cullen t code = 3531249409) J5 NEURO Lab Interpretation (test cod e = 32960-6) Abnormal [facility] Ohsacuf0566-54-70 14:28:37* Test Item Value Reference Range Interpretation Comme nts POC Glu (test code = 6169547870) 300 mg/dL 70-99 H POC Performing Location (cullen t code = 9793383340) J5 NEURO Lab Interpretation (test cod e = 22581-2) Abnormal [facility] Xkqodcs9348-44-43 08:52:02* Test Item Value Reference Range Interpretation Comme nts POC Glu (test code = 4625466564) 144 mg/dL 70-99 H POC Performing Location (cullen t code = 2637575659) J5 NEURO Lab Interpretation (test cod e = 49764-8) Abnormal [facility] Vpnurfx8550-04-78 04:23:10* Test Item Value Reference Range Interpretation Comme nts POC Glu (test code = 6735689044) 103 mg/dL 70-99 H POC Performing Location (cullen t code = 6885307781) J5 NEURO Lab Interpretation (test cod e = 85724-7) Abnormal [facility] Jydjqyg6408-64-55 23:55:47* Test Item Value Reference Range Interpretation Comme nts POC Glu (test code = 1583250668) 84 mg/dL 70-99 POC Performing Location (cullen t code = 7189519276) 5 NEURO [facility] Ggpfmkn9109-93-27 14:34:39* Test Item Value Reference Range Interpretation Comme nts POC Glu (test code = 2098616545) 268 mg/dL 70-99 H POC Performing Location (cullen t code = 4392975149) J5 NEURO Lab Interpretation (test cod e = 13921-3) Abnormal [facility] Gcjguaf8373-08-59 07:39:54* Test Item Value Reference Range Interpretation Comme nts POC Glu (test code = 5552999136) 199 mg/dL 70-99 H POC Performing Location (cullen t code = 7028086838) J5 NEURO Lab Interpretation (test cod e = 75827-5) Abnormal [facility] Kjunvmt6591-32-71 02:20:32* Test Item Value Reference Range Interpretation Comme nts POC Glu (test code = 0150001468) 230 mg/dL 70-99 H POC Performing Location (cullen t code = 8448454930) J5 NEURO Lab Interpretation (test cod e = 51505-5) Abnormal [facility] Smzwscy2289-80-76 21:16:23* Test Item Value Reference Range Interpretation Comme nts POC Glu (test code = 3491513258) 294 mg/dL 70-99 H POC Performing Location (cullen t code = 1570233024) J5 NEURO Lab Interpretation (test cod e = 32137-4) Abnormal [facility] Maxarrl7281-37-82 17:51:36* Test Item Value Reference Range Interpretation Comme nts POC Glu (test code = 0398213736) 266 mg/dL 70-99 H POC Performing Location (cullen t code = 8994924996) J5 NEURO Lab Interpretation (test cod e = 44033-6) Abnormal [facility] Nehrpjh7850-39-54 13:58:15* Test Item Value Reference Range Interpretation Comme nts POC Glu (test code = 3191018979) 392 mg/dL 70-99 H POC Performing Location (cullen t code = 2391659664) J5 NEURO Lab Interpretation (test cod e = 85626-7) Abnormal [facility] Qxgpyqq9354-39-81 10:45:00* Test Item Value Reference Range Interpretation Comme nts POC Glu (test code = 3983614482) 295 mg/dL 70-99 H POC Performing Location (cullen t code = 6543940959) J5 NEURO Lab Interpretation (test cod e = 12545-1) Abnormal [facility] Fhmzqiy0975-08-60 05:17:23* Test Item Value Reference Range Interpretation Comme nts POC Glu (test code = 1894801882) 280 mg/dL 70-99 H POC Performing Location (cullen t code = 3515755205) J5 NEURO Lab Interpretation (test cod e = 77913-4) Abnormal [facility] Ygmnloi1597-52-87 21:47:01* Test Item Value Reference Range Interpretation Comme nts POC Glu (test code = 9468856202) 363 mg/dL 70-99 H POC Performing Location (cullen t code = 8914996133) J5 NEURO Lab Interpretation (test cod e = 38961-7) Abnormal [facility] Hbhwuvb6004-36-00 20:16:55* Test Item Value Reference Range Interpretation Comme nts POC Glu (test code = 7884456629) 112 mg/dL 70-99 H POC Performing Location (cullen t code = 7249199360) J5 NEURO Lab Interpretation (test cod e = 07836-8) Abnormal [facility] Zadserm4302-12-18 14:11:23* Test Item Value Reference Range Interpretation Comme nts POC Glu (test code = 4538587003) 183 mg/dL 70-99 H POC Glu Comment 1 (test code = 5761975223) Notified RN/MD POC Performing Location (cullen t code = 1983409383) J9W Stroke Lab Interpretation (test cod e = 24484-6) Abnormal [facility] Scdhvxt9637-44-71 08:36:25* Test Item Value Reference Range Interpretation Comme nts POC Glu (test code = 0793882056) 251 mg/dL 70-99 H POC Glu Comment 1 (test code = 0903629017) Notified RN/MD POC Performing Location (cullen t code = 4493920570) J4E STROKE Lab Interpretation (test cod e = 96693-5) Abnormal [facility] Lkciitb3939-06-10 02:53:43* Test Item Value Reference Range Interpretation Comme nts POC Glu (test code = 6072854537) 298 mg/dL 70-99 H POC Glu Comment 1 (test code = 7584393141) Notified RN/MD POC Performing Location (cullen t code = 9831808763) J4E STROKE Lab Interpretation (test cod e = 78653-5) Abnormal [facility] Vfmfrtq8389-49-23 22:50:16* Test Item Value Reference Range Interpretation Comme nts POC Glu (test code = 7562035547) 298 mg/dL 70-99 H POC Glu Comment 1 (test code = 9035906024) Notified RN/MD POC Performing Location (cullen t code = 5550472345) J4E STROKE Lab Interpretation (test cod e = 52349-3) Abnormal [facility] Cykbzvu6374-47-45 17:24:33* Test Item Value Reference Range Interpretation Comme nts POC Glu (test code = 7078161331) 157 mg/dL 70-99 H POC Glu Comment 1 (test code = 8579818410) Notified RN/MD POC Performing Location (cullen t code = 1816799568) J4E STROKE Lab Interpretation (test cod e = 76807-4) Abnormal [facility] Bserisf0099-12-70 12:22:51* Test Item Value Reference Range Interpretation Comme nts POC Glu (test code = 3076465658) 342 mg/dL 70-99 H POC Glu Comment 1 (test code = 5703978833) Notified RN/MD POC Performing Location (cullen t code = 6606270204) J4E STROKE Lab Interpretation (test cod e = 85197-3) Abnormal [facility] Zbaogwf2688-19-74 04:37:32* Test Item Value Reference Range Interpretation Comme nts POC Glu (test code = 8539130685) 264 mg/dL 70-99 H POC Glu Comment 1 (test code = 5240228337) Notified RN/MD POC Performing Location (cullen t code = 4690943797) J4E STROKE Lab Interpretation (test cod e = 88024-1) Abnormal [facility] Ltivfmn3014-37-02 00:14:13* Test Item Value Reference Range Interpretation Comme nts POC Glu (test code = 0524117055) 207 mg/dL 70-99 H POC Glu Comment 1 (test code = 9545797369) Notified RN/MD POC Performing Location (cullen t code = 0622575861) J4E STROKE Lab Interpretation (test cod e = 68168-8) Abnormal [facility] Lgljtoy2730-68-70 22:29:13* Test Item Value Reference Range Interpretation Comme nts POC Glu (test code = 3398396239) 177 mg/dL 70-99 H POC Glu Comment 1 (test code = 9721784029) Notified RN/MD POC Performing Location (cullen t code = 5273838804) [facility] STROKE Lab Interpretation (test cod e = 21137-1) Abnormal [facility] Akmfups3700-76-94 19:29:10* Test Item Value Reference Range Interpretation Comme nts POC Glu (test code = 9201525117) 135 mg/dL 70-99 H POC Glu Comment 1 (test code = 7871492032) Notified RN/MD POC Performing Location (cullen t code = 7864402164) [facility] STROKE Lab Interpretation (test cod e = 97771-8) Abnormal [facility] Bwbcfuh3715-98-79 12:17:22* Test Item Value Reference Range Interpretation Comme nts POC Glu (test code = 3899126282) 293 mg/dL 70-99 H POC Glu Comment 1 (test code = 4766700107) Notified RN/MD POC Performing Location (cullen t code = 3749407710) [facility] Stroke Lab Interpretation (test cod e = 85280-2) Abnormal [facility] Mynagib4805-63-83 11:18:50* Test Item Value Reference Range Interpretation Comme nts POC Glu (test code = 7956776557) 264 mg/dL 70-99 H POC Glu Comment 1 (test code = 1507498114) Notified RN/MD POC Performing Location (cullen t code = 4614285904) [facility] Stroke Lab Interpretation (test cod e = 72721-5) Abnormal [facility] Ydhizof7567-19-72 05:39:32* Test Item Value Reference Range Interpretation Comme nts POC Glu (test code = 8727100659) 186 mg/dL 70-99 H POC Glu Comment 1 (test code = 7563041599) Notified RN/MD POC Performing Location (cullen t code = 1384377523) [facility] Stroke Lab Interpretation (test cod e = 82740-9) Abnormal [facility] Ajosowy5926-47-71 00:41:25* Test Item Value Reference Range Interpretation Comme nts POC Glu (test code = 0137595349) 289 mg/dL 70-99 H POC Glu Comment 1 (test code = 5113025545) Notified RN/MD POC Performing Location (cullen t code = 6887410049) J9 Stroke Lab Interpretation (test cod e = 76304-6) Abnormal [place] [address] njaq6378-56-05 20:08:19* Test Item Value Reference Range Interpretation Comme nts Ventricular Rate (test code = 3015943861) BPM Atrial Rate (test code = 8778465887) BPM HI Interval (test code = 3199695330) 142 ms QRS Duration (test code = 3204147626) 70 ms QT/QTc (test code = 5124672943) 390 ms QTc Calculation (test code = 9547637093) 469 ms P-[place] (test code = 9802292872) degrees R-[place] (test code = 9827095005) degrees T-[place] (test code = 4005632938) degrees NEELA (test code = NEELA) PXN (test code = PXN) [facility] Soxguky0569-18-24 19:39:55* Test Item Value Reference Range Interpretation Comme nts POC Glu (test code = 4902861095) 195 mg/dL 70-99 H POC Glu Comment 1 (test code = 1166152309) Notified RN/MD POC Performing Location (cullen t code = 3705810250) 9 Stroke Lab Interpretation (test cod e = 83801-6) Abnormal [place] [address] pmvu4094-32-17 15:42:28* Test Item Value Reference Range Interpretation Comme nts Ventricular Rate (test code = 8021050899) BPM Atrial Rate (test code = 0646635277) BPM HI Interval (test code = 4222827354) 152 ms QRS Duration (test code = 0505846369) 62 ms QT/QTc (test code = 9459577008) 374 ms QTc Calculation (test code = 7859303257) 462 ms P-[place] (test code = 7260153723) degrees R-[place] (test code = 5163914161) degrees T-[place] (test code = 2467023890) degrees NEELA (test code = NEELA) PXN (test code = PXN) [facility] jkdrvyxw1372-75-80 13:08:15* Test Item Value Reference Range Interpretation Comme nts LV est EF (test code = 6739088455) 63 % LVEF 3D (test code = 4724260637) 55 % LVIDd (test code = 9191310245) 47 mm LVIDs (test code = 1395518970) 31 mm LV ESV 3D (test code = 9983704616) 99 cm3 LV ESV 2D (test code = 3147816) 38.2 mL LV EDV 3D (test code = 1143636853) 218 ml LV EDV 2D (test code = 4269649) 102 mL IVSd (test code = 1290291732) 7 mm LVPWd (test code = 6423631018) 10 mm Fractional Shortening 2D (te st code = 7426799331) 34 % MV E pk susana (test code = 6072776589) 0.95 m/s MV A pk susana (test code = 2603901605) 1.23 m/s MV E/A ratio (test code = 2754094133) MV DT (test code = 4684981736) 155 ms LVOT pk susana (test code = 2996821293) 0.93 m/s LVOT mn grad (test code = 2596896383) mmHg LVOT Vmean (test code = 6334592043) 0.7 m/s LVOT VTI (test code = 2285987300) 24.1 cm LA area A4C (test code = 2125793059) 17.1 cm2 RV-sharif basal diam (test cod e = 1159311891) 29 cm RV-sharif mid diam (test code = 6893078231) 21 cm RV-sharif longitudinal diam (t est code = 1038219948) 79 cm AV mn grad (test code = 8683758015) mmHg AV pk grad (test code = 1923627527) mmHg AV mn susana (test code = 7372622029) 1.53 m/s AV pk susana (test code = 0948337591) 2.19 m/s AV VTI (test code = 0798719155) 45 cm LVOT pk grad (test code = 2476362828) mmHg LVOT Vmax/AV Vmax (test code = 8384670001) 0.43 {ratio} MV mn grad (test code = 9979179286) mmHg MV pk grad (test code = 2349184150) mmHg MV mn susana (test code = 2020485584) 0.776 m/s MV VTI (test code = 1137292807) 27.5 cm MV max susana (test code = 9946971417) 1.17 cm/s IVSd 2D (test code = 5755191) 6.52 cm LV GLS (test code = 8198168506) -15.9 % Radiology Study observation (narrative) (test code = 00302-7) NEELA (test code = NEELA) [facility] Vegirjt4694-15-00 07:52:49* Test Item Value Reference Range Interpretation Comme nts POC Glu (test code = 8009746575) 162 mg/dL 70-99 H POC Performing Location (cullen t code = 4280338325) J NSICU Lab Interpretation (test cod e = 60809-0) Abnormal [facility] Tvjfesk2954-24-49 04:31:46* Test Item Value Reference Range Interpretation Comme nts POC Glu (test code = 4349469212) 164 mg/dL 70-99 H POC Glu Comment 1 (test code = 8024807434) Cleaned Meter POC Performing Location (cullen t code = 7369717463) J7 NSICU Lab Interpretation (test cod e = 91442-6) Abnormal [facility] [facility] [id number] 00:39:54* Test Item Value Reference Range Interpretation Comme nts POC Glu (test code = 1189248997) 222 mg/dL 70-99 H POC Glu Comment 1 (test code = 0591603052) Cleaned Meter POC Performing Location (cullen t code = 9358297422) J7 NSICU Lab Interpretation (test cod e = 78291-0) Abnormal [facility] Arterial Blood Gas and Basic [id number] 00:26:31* Test Item Value Reference Range Interpretation Comme nts POC A Temp (test code = 7104860546) DegC POC A Source (test code = 5086430955) ART POC A pH (test code = 2744-1) 7.35-7.45 POC A PCO2 (test code = 2019-8) See_Comment [Automated messa ge] The system which generated this result transmitted reference range: 35 - 45 mmHg. The reference range was not used to interpret this result as normal/abnormal. POC A PO2 (test code = 2703-7) See_Comment [Automated messa ge] The system which generated this result transmitted reference range: 80 - 100 mmHg. The reference range was not used to interpret this result as normal/abnormal. POC A HCO3 (test code = 1960-4) See_Comment H [Automated messa ge] The system which generated this result transmitted reference range: 22 - 26 mMol/L. The reference range was not used to interpret this result as normal/abnormal. POC A BE (test code = 1925-7) See_Comment H [Automated messa ge] The system which generated this result transmitted reference range: -2 - 2 mMol/L. The reference range was not used to interpret this result as normal/abnormal. POC A O2 Sat (calc) (test code = 2708-6) 97.6 % 95-100 POC A Hgb Tot (test code = 65121-4) 13.9 g/dL 13.7-17.5 POC A Hct (calc) (test code = 39040-5) 42 % 40.1-51.0 POC A Na (test code = 90434-2) See_Comment L [Automated messa ge] The system which generated this result transmitted reference range: 135 - 145 mEq/L. The reference range was not used to interpret this result as normal/abnormal. POC A K (test code = 2532651) See_Comment [Automated messa ge] The system which generated this result transmitted reference range: 3.5 - 5.1 mEq/L. The reference range was not used to interpret this result as normal/abnormal. POC Chloride (test code = 4940240) See_Comment [Automated messa ge] The system which generated this result transmitted reference range: 95 - 109 mEq/L. The reference range was not used to interpret this result as normal/abnormal. POC A Glu (test code = 2339-0) 221 mg/dL 70-99 H POC A LA (test code = 224) See_Comment [Automated messa ge] The system which generated this result transmitted reference range: 0.5 - 2.2 mMol/L. The reference range was not used to interpret this result as normal/abnormal. POC A Ca Ion (test code = 76786-2) See_Comment [Automated messa ge] The system which generated this result transmitted reference range: 1.05 - 1.25 mMol/L. The reference range was not used to interpret this result as normal/abnormal. POC A Ca Ion (7.4) (test code = 9586906612) 1.18 mmol/L 1.05-1.25 POC A Mode #1 (test code = 5824571916) ACVC POC A Mech R (bpm) (test code = 1051432796) bpm POC A Mech VT (test code = 5387360176) 370 mL POC A PEEP (test code = 5886569050) cmH20 POC A %FIO2 (test code = 2344945891) 40 % POC Performing Location (test code = 8188670237) [facility] BG CLIN Lab Interpretation (test code = 76721-8) Abnormal [facility] [id number] 20:27:50* Test Item Value Reference Range Interpretation Comme nts POC Glu (test code = 5638837395) 191 mg/dL 70-99 H POC Glu Comment 1 (test code = 9584594979) Notified RN/MD POC Performing Location (cullen t code = 0373104940) J7 NSICU Lab Interpretation (test cod e = 08577-9) Abnormal [facility] Arterial Blood Gas and Basic [id number] 18:17:48* Test Item Value Reference Range Interpretation Comme nts POC A Temp (test code = 5943061729) DegC POC A Source (test code = 1171541433) ART POC A pH (test code = 2744-1) 7.35-7.45 POC A PCO2 (test code = 2019-8) See_Comment [Automated messa ge] The system which generated this result transmitted reference range: 35 - 45 mmHg. The reference range was not used to interpret this result as normal/abnormal. POC A PO2 (test code = 2703-7) See_Comment [Automated messa ge] The system which generated this result transmitted reference range: 80 - 100 mmHg. The reference range was not used to interpret this result as normal/abnormal. POC A HCO3 (test code = 1960-4) See_Comment H [Automated messa ge] The system which generated this result transmitted reference range: 22 - 26 mMol/L. The reference range was not used to interpret this result as normal/abnormal. POC A BE (test code = 1925-7) See_Comment [Automated messa ge] The system which generated this result transmitted reference range: -2 - 2 mMol/L. The reference range was not used to interpret this result as normal/abnormal. POC A O2 Sat (calc) (test code = 2708-6) 100 % 95-100 POC A Hgb Tot (test code = 74937-3) 13 g/dL 13.7-17.5 L POC A Hct (calc) (test code = 85573-2) 39 % 40.1-51.0 L POC A Na (test code = 33784-9) See_Comment L [Automated messa ge] The system which generated this result transmitted reference range: 135 - 145 mEq/L. The reference range was not used to interpret this result as normal/abnormal. POC A K (test code = 5554469) See_Comment [Automated messa ge] The system which generated this result transmitted reference range: 3.5 - 5.1 mEq/L. The reference range was not used to interpret this result as normal/abnormal. POC Chloride (test code = 5638987) See_Comment [Automated messa ge] The system which generated this result transmitted reference range: 95 - 109 mEq/L. The reference range was not used to interpret this result as normal/abnormal. POC A Glu (test code = 2339-0) 175 mg/dL 70-99 H POC A LA (test code = 224) See_Comment [Automated messa ge] The system which generated this result transmitted reference range: 0.5 - 2.2 mMol/L. The reference range was not used to interpret this result as normal/abnormal. POC A Ca Ion (test code = 89584-1) See_Comment [Automated messa ge] The system which generated this result transmitted reference range: 1.05 - 1.25 mMol/L. The reference range was not used to interpret this result as normal/abnormal. POC A Ca Ion (7.4) (test code = 6571586778) 1.05 mmol/L 1.05-1.25 POC A Mode #1 (test code = 5320806580) A/C POC A Mech R (bpm) (test code = 7195422984) bpm POC A Mech VT (test code = 4014627721) 400 mL POC A PEEP (test code = 0579556422) cmH20 POC A %FIO2 (test code = 6086548393) 100 % POC Performing Location (test code = 8659637002) [facility] CLIN Lab Interpretation (test code = 29396-1) Abnormal [facility] [id number] 13:28:07* Test Item Value Reference Range Interpretation Comme nts POC Glu (test code = 9767208895) 166 mg/dL 70-99 H POC Glu Comment 1 (test code = 5939679374) Notified RN/MD POC Performing Location (cullen t code = 8832403723) SP1 ER Lab Interpretation (test cod e = 78897-1) Abnormal [facility] HEMOGLOBIN A1C [id number] 13:38:00* Test Item Value Reference Range Interpretation Comme [facility] POCT HBA1C (test code = 4548-4) 8.2 % 4-6 A Lab Interpretation (test cod e = 93609-5) [facility] [id number] 13:38:00* Test Item Value Reference Range Interpretation Comme [facility] POCT HBA1C (test code = 4548-4) 8.2 % 4-6 A Lab Interpretation (test cod e = 70966-8) Abnormal [facility] Consult Notes Date/Time Note Provider Source 2024-09-08 17:44:17 Spiritual Care Subjective Manager Unix welcomed patient and two daughters to [facility] and provided with card detailing vascular technologist sonographer role and availability. Patient's daughters requested visit from . Reason For Visit Care Recipient: Patient and family together Time spent: 15 minutes Reason for Visit: Admission request, Initial visit Interventions Relationship Building Interventions: Cultivated a relationship of care and support Empowerment Interventions: Encouraged self-care, Provided vascular technologist sonographer education Collaboration Interventions: Facilitated support for spiritual/cultural practice Outcomes Expressed: Gratitude Expressed gratitude: Observed Identified: Resources Identified resources: Observed Assessment Spiritual Resources: Spiritual practice Relational Resources: Family Plan Follow-up: Follow as circumstances allow Follow-up For: Spiritual support, Emotional support Referral To: Pratik morales [facility] Pastoral Care [facility] 2024-09-07 12:44:30 Associated Order(s): IP CONSULT TO NUTRITION SERVICES; IP SCREENING REFERRAL TO NUTRITION SERVICES [facility] Adult Nutrition Assessment Nutrition Diagnosis Nutrition Diagnosis: Inadequate oral intake related to decreased ability to consume sufficient energy as evidenced by documentation. Altered nutrition-related lab values related to ETIOLOGY: endocrine dysfunction as evidenced by abnormal plasma glucose and/or HgbA1c levels and anorexia. Interventions and Recommendations Switch ONS to diabetes friendly supplement Advance diet as medically feasible per 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 recommendations Continue to encourage adequate intake of meals Obtain weekly weights Nutrition Risk: NUTRITION RISK: Moderate, in 5-7 days Next Date for Nutrition Services Follow Up: 09/14/24 Current Diet Dietary Orders (From admission, onward) Start Ordered 09/07/24 1022 Adult Diet Dysphagia; 0 - Thin Liquids; 4 - Pureed (Dysphagia Pureed); No concentrated sweets; 1:1 Feeding Diet effective now Comments: Carbohydrate diet Question Answer Comment Diet type Dysphagia Liquid Consistency or Liquid Type: 0 - Thin Liquids Modify Texture or Food Level (Dysphagia): 4 - Pureed (Dysphagia Pureed) Restrictions: No concentrated sweets Tray Precautions: 1:1 Feeding 09/07/24 1022 Percent Meals Eaten for the past 48 hrs: Percent Meals Eaten (%) 09/07/24 0900 75 Oral Supplement(s): Ensure Enlive TID Enteral Nutrition: N/a Providing: Communication: Nutrition/Pharmacy Rounds Nutrition Visit Information 09/07 - Pt with variable PO intake per documentation with consistent intake <75% of meals. RD to adjust ONS to help with glucose control. No current documented concerns with N/V - moderate amount of retained fecal matter per admission KUB. Weight loss suspected per documentation available - pt previously with DHT with TF regimen - continue to monitor intake. BG POCs variable at 94-381 mg/dL. Pt currently on diet with no concentrated sweets. Anthropometrics Height: 170.2 cm (5' 7") Admit WT: 81.3 kg Body mass index is 28.07 kg/m?. Weight History: Wt Readings from Last 14 Encounters: 09/05/24 81.3 kg (179 lb 3.7 oz) 08/28/24 88 kg (194 lb) Estimated Nutrition Needs Weight Used for Equation Calculations: 81.3 kg (179 lb 3.7 oz) Calculated Energy Needs Using Equations Height: 1.702 m (5' 7") Weight Used for Equation Calculations: 81.3 kg (179 lb 3.7 oz) Energy Equation Used: Rule of thumb (kcal/kg) Energy Lower Range: 25 (kcal/kg) Energy Upper Range: 30 (kcal/day) Energy Needs Lower Range: 2031 kcal/day (kcal/day) Energy Needs Upper Range: 243 kcal/day Temp: 36.8 ?C (98.2 ?F) Estimated Protein Needs (g/kg) Protein Lower Range: 1.2 (g/kg) Protein Upper Range: 1.5 (g/day) Protein Lower Range: 98 g/day (g/day) Protein Upper Range: 122 g/day Fluid Needs (mL/kg) Fluid Needs: 25 (mL/day) Fluid Needs (Calculated): 2031 mL/day Nutrition Physical Findings Orientation Level: Disoriented to place; Disoriented to time O2 Delivery Method: Nasal cannula Gastrointestinal (WDL): X Abdomen Inspection: Soft Abdominal Tenderness: Nontender Bowel Sounds: All quadrants Bowel Sounds (All Quadrants): Active Last BM Date: 09/04/24 LLE Edema: Dependent Skin: Wound care s/o Basic Information Consulting MD: Bernadette Norton MD Admission Diagnosis: 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 male with hx of prior ischemic stroke w/ no residual deficits, HTN, DM2, lung cancer (last treatment 2021) who presented to [facility] on 08/19 w/ left sided weakness and neglect, found to have R MCA stroke s/p TNK and endovascular thrombectomy on 08/19 with subsequent improvement in strength and mentation. Mild hemorrhagic conversion. Acute care course c/b CAP s/p completion of abx on 08/28/24 Health Status Allergies No Known Allergies Medications amLODIPine, 10 mg, Oral, Daily aspirin, 324 mg, Nasogastric, Daily atorvastatin, 80 mg, Oral, Daily caffeine, 100 mg, Oral, Daily clopidogrel, 75 mg, Nasogastric, Daily Docusate Sodium, 100 mg, Per G Tube, q12h Ensure Enlive, 1 Container, Oral, TID with meals heparin, 5,000 Units, Subcutaneous, q8h insulin glargine, 30 Units, Subcutaneous, Every evening insulin lispro, 8 Units, Subcutaneous, TID with meals ipratropium-albuterol, 3 mL, Nebulization, q6h losartan, 75 mg, Oral, Daily melatonin, 3 mg, Per G Tube, Nightly mirtazapine, 7.5 mg, Oral, Nightly modafinil, 100 mg, Oral, Daily polyethylene glycol (PEG) 3350, 17 g, Per G Tube, q12h sennosides, 1 tablet, Oral, Nightly Histories Past Medical History: Diagnosis Date Diabetes mellitus (HCC) Hypertension Lung cancer (HCC) Stroke (HCC) Review Management Pertinent Labs : Lab Results Component Value Date POC Glu 197 (H) 09/07/2024 Lab Results Component Value Date Magnesium 1.87 09/06/2024 Phosphorus Lvl 3.9 09/06/2024 No intake or output data in the 24 hours ending 09/07/24 1244 Impression and Plan Monitoring and Evaluation: MONITORING AND EVALUATION: Weight changes, Improved strength/function, Muscle wasting, Fat wasting, and Digestive/abdominal assessment Nutrition Intake: Nutrition Intake : PO intake and tolerance Labs: Glycemic Control Goal: GOAL: >75% of estimated needs met: Contact Information Erin Appiah MS, RD, LD [phone] [facility] [place], [place] 2024-09-06 09:21:00 Associated Order(s): IP CONSULT TO WOUND CARE Images from the original note were not included. Consult received for: Left chest incision, Left groin incision and sacral redness. [facility] Review: Chaitanya Tena is a 78 y.o. male with hx of prior ischemic stroke w/ no residual deficits, HTN, DM2, lung cancer (last treatment 2021) who presented to [facility] on 08/19 w/ left sided weakness and neglect, found to have R MCA stroke s/p TNK and endovascular thrombectomy on 08/19 with subsequent improvement in strength and mentation. Mild hemorrhagic conversion. Acute care course c/b CAP s/p completion of abx on 08/28/24 Assessment: -Left Chest Incision that is clean dry and intact, well approximated with surgical glue -Left groin incision that is clean, dry, intact and well approximate with steri-strips -Sacrum with blanchable erythema Intervention: Wound care and caregiver education provided. Pressure injury prevention interventions: 1. Turn and reposition patient. 2. Use of pressure redistribution devices and positioners. 3. Manage moisture. 4. Skin assessment including skin under medical transcriptionist per unit protocol. 5. No sting prior to placement of adhesives. 6. Adhesive remover for removal of adhesives. Protect adhered items you do not want removed. 7. Optimize nutrition for wound healing. Education: Offloading Recommendations: 1. Left Chest and Left Groin: Cleanse daily with wound cleanser, pat dry, leave open to air. Notify MD for incision concerns. 2. Prevalon Boots 3. Centrella Bed Reposition patient in bed or chair to offload pressure Provide offloading boots Manage moisture in skin folds Optimize Nutrition Support Surface - per hospital bed algorithm: Nurse to order. Review: With Nursing, patient, caregiver and Physician. Plan - Patient will be seen weekly or prn. Primary nursing to perform recommended wound care. Nursing to notify wound care nurse of complications and concerns. Wound Care signing off. Please re-consult if needed. [facility] Wound Care Registered Nurse [facility] 2024-09-05 19:31:12 Reason For Consult Medical Management Requesting Physician/Service Dr. Norton Subjective History Of Present Illness Chaitanya Tena is a 78 y.o. male with past medical history of stroke with no residual deficit, HTN, DM II, and lung cancer admitted on 08/19 as life flight code stroke due to TAPE SEWER, LFD, and dysarthria. Patient was found with R M1 occlusion s/p TNK and endovascular thrombectomy with TICI 2b. 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 Carotid US: The right internal carotid artery has elevated velocities consistent with 50-69% stenosis, The left ICA is <50%, The right vertebral artery demonstrates a high resistant waveform suggesting distal occlusion. Left proximal external carotid artery elevated velocities due to stenosis. ECHO completed with LVEF of 55%, EKG: NSR, and emboli detection was negative. Patient continued to have improvement in his neurological exam. PEG placement was deferred as patient passed FEES and doing well on puree diet. Hospital course complicated by CAP and completing ceftriaxone and azithromycin. Hyperglycemia with endocrine consulted to adjust insulin. 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 Patient now admitted to [facility] for IPR. Patient seen at bedside, laying in bed and in no acute distress. He breathes comfortably on room air. He is awake, alert to himself, states that he is in a hospital, unaware of date or time. He is dysarthric but understandably. He follows simple commands. He denies any current cp, palpitation, sob, n/v, headache, dizziness, fever or chills. Past Medical History He has a past medical history of Hypertension, Lung cancer (HCC), and Stroke (HCC). Surgical History He has a past surgical history that includes US transcranial doppler (TCD) emboli detection without injection (08/20/2024). Family History No family history on file. Social History He reports that he quit smoking about 30 years ago. His smoking use included cigarettes. He has never used smokeless tobacco. No history on file for alcohol use and drug use. Allergies Patient has no known allergies. Medications Medications Prior to Admission Medication Sig Dispense Refill Last Dose/Taking amLODIPine (Norvasc) 10 MG tablet Take 1 tablet by mouth 1 time each day. aspirin 81 MG chewable tablet 4 tablets by Nasogastric route 1 time each day. atorvastatin (Lipitor) 80 MG tablet Take 1 tablet by mouth 1 time each day. [START ON 09/06/2024] caffeine 200 MG Take 0.5 tablets by mouth 1 time each day. clopidogrel (Plavix) 75 MG tablet Take 1 tablet by mouth 1 time each day. insulin glargine (Lantus) 100 UNIT/ML injection Inject 30 Units under the skin in the evening. losartan (Cozaar) 25 MG tablet Take 3 tablets by mouth 1 time each day. melatonin 3 MG tablet 1 tablet by Per G Tube route at bedtime. mirtazapine (Remeron) 7.5 MG tablet Take 1 tablet by mouth at bedtime. modafinil (Provigil) 100 MG tablet Take 1 tablet by mouth 1 time each day. polyethylene glycol, PEG, 3350 (Miralax) 17 g packet 17 g by Per G Tube route in the morning and 17 g in the evening. Do all this for 3 days. Review of Systems Constitutional: Negative for chills and fever. HENT: Negative for sore throat. Respiratory: Negative for cough and shortness of breath. Cardiovascular: Negative for chest pain and palpitations. Gastrointestinal: Negative for abdominal pain, nausea and vomiting. Neurological: Positive for weakness. Negative for dizziness and headaches. Objective Last Recorded Vitals Blood pressure (!) 127/58, pulse 93, temperature 36.8 ?C (98.3 ?F), temperature source Axillary, resp. rate 16, height 1.702 m (5' 7"), weight 81.3 kg (179 lb 3.7 oz). Physical Exam: Constitutional: General: He is not in acute distress. HENT: Head: Normocephalic and atraumatic. Mouth/Throat: Mouth: Mucous membranes are moist. Eyes: General: No scleral icterus. Cardiovascular: Rate and Rhythm: Normal rate and regular rhythm. Heart sounds: Normal heart sounds. No murmur heard. Pulmonary: Breath sounds: Normal breath sounds. No wheezing, rhonchi or rales. Abdominal: General: Bowel sounds are normal. Palpations: Abdomen is soft. Tenderness: There is no abdominal tenderness. Musculoskeletal: Right lower leg: No edema. Left lower leg: No edema. Skin: General: Skin is warm and dry. Capillary Refill: Capillary refill takes less than 2 seconds. Neurological: Mental Status: He is alert. Sensory: Sensory deficit present. Motor: Weakness present. Comments: Awake, alert to himself, states he is in the hospital, unaware of date and time, Unable to states his birthday, Lab Results Results from last 7 days Lab Units 09/05/24 0415 WBC 10*3/uL 10.36* HEMOGLOBIN g/dL 12.0* HEMATOCRIT % 38.6 PLATELETS 10*3/uL 369 Results from last 7 days Lab Units 09/05/24 1610 09/05/24 0837 09/05/24 0239 08/31/24 0141 08/31/24 0030 SODIUM mEq/L -- -- 142 < > 139 POTASSIUM mEq/L -- -- 4.1 < > 4.4 CHLORIDE mEq/L -- -- 105 < > 99 CO2 mEq/L -- -- 28.4 < > 30.2 BUN mg/dL -- -- 27* < > 27* CREATININE mg/dL -- -- 1.08 < > 1.24 CALCIUM mg/dL -- -- 9.4 < > 9.8 PROTEIN TOTAL g/dL -- -- -- -- 7.4 BILIRUBIN TOTAL mg/dL -- -- -- -- 0.53 ALK PHOS U/L -- -- -- -- 103 ALT U/L -- -- -- -- 21 AST U/L -- -- -- -- 37 GLUCOSE mg/dL -- -- 138* < > 162* POC GLUCOSE mg/dL 213* < > -- < > -- < > = values in this interval not displayed. Imaging Results Procedure Component Value Units Date/Time XR abdomen 1 view [[id number]] Resulted: 09/01/2408 Order Status: Completed Updated: 09/01/24710 Narrative: EXAM: XR ABDOMEN 1 VIEW DATE: 08/31/2024 19:42 INDICATION: Confirmation of tube placement COMPARISON: August 29, 2024 TECHNIQUE: Limited AP view of the abdomen for tube placement assessment. Number of images: 1 FINDINGS: Transesophageal feeding tube looped in the distal stomach with the tip overlying the distal body region of the stomach. Transesophageal suction tube has been removed in the interval. Other tubes and lines: None. No other changes. IMPRESSION: Tube positions as above. Report finalized by: Kimberly Torres MD 09/01/2024 7:08 CT angiogram brain neck STROKE [[id number]] Resulted: 08/31/241752 Order Status: Completed Updated: 08/31/241755 Narrative: EXAM: CTA BRAIN EXAM: CTA NECK DATE: 08/31/2024 17:00 INDICATION: rule out new stroke COMPARISON: Contemporaneous noncontrast head CT. Noncontrast head CT with CTA of the head and neck done on 08/19/2024. TECHNIQUE: Rapid acquisition spiral CT images of the brain and neck were obtained between the aortic arch and the cranial vertex during intravenous infusion of iodinated contrast for the purposes of CT angiography. 3D angiographic postprocessing with MIP (maximum intensity projection) reformatted images made at the scanner. The source images were also presented for interpretation. Viz. was used in the care of this patient. IV contrast: Refer to MAR/sonography technologist documentation DLP: Refer to CT protocol form FINDINGS: NECK CTA: Aortic arch: Stable three-vessel arch with atheromatous calcification. No origin stenosis is identified. Common carotid arteries: Common carotid arteries are well opacified with contrast and there is no occlusion or significant stenosis. Internal carotid arteries: * Right: There is between 50 and 69% stenosis by NASCET criteria. Calcified and noncalcified atheromatous changes. The noncalcified atheromatous wall thickening measures 4 mm. * Left: There is mild atherosclerosis with areas of calcification at the carotid bifurcation, and stenosis of less than 50% by NASCET criteria. Prominent calcified atheromatous changes. Mild noncalcified atheromatous changes. Vertebral arteries: Left vertebral artery is dominant. Both vertebral arteries are opacified with contrast and there is no occlusion. Nonvascular: Prominent emphysematous changes in the upper lobes. Pleural scarring is noted on the right side along the lateral aspect of the visualized upper lobe. BRAIN CTA: Arteries: Previously seen occlusion of the right M1 segment has recanalized and there is opacification of the distal branches of the right MCA. Stable near complete occlusion of the distal left M1 segment with unchanged opacification of the distal branches. Stable encephalomalacia from a prior left posterior division MCA territory infarct noted. Stable short segment severe stenosis in the right P1 segment and at the left P1 P2 junction. No interval occlusion identified. There is no aneurysm seen. Veins: Cannot be evaluated due to the early arterial phase of contrast. Brain parenchyma: The brain parenchyma and other incidental structures are unchanged since the most recent CT. IMPRESSION: * Interval recanalization of the occluded right M1 segment seen on 08/19/2024. The distal branches are opacified with contrast. * Stable short segment severe stenosis in the distal left M1 segment and bilateral proximal auto transmission specialist (P1 segments). * Prominent atheromatous changes in the bilateral carotid bulbs with moderate stenosis on the right and mild stenosis on the left. * No interval large or medium vessel occlusion. (All qualitative and quantitative assessments of carotid bifurcation and proximal internal carotid artery stenosis are made referencing the distal internal carotid artery, NASCET criteria.) Report finalized by: Dar Dickinson MD 08/31/2024 17:53 CT brain STROKE wo IV contrast [[id number]] Resulted: 08/31/241739 Order Status: Completed Updated: 08/31/241742 Narrative: EXAM: CT BRAIN WITHOUT CONTRAST DATE: 08/31/2024 17:00 INDICATION: rule out new stroke COMPARISON: CT brain without contrast 08/24/2024 and MRI brain with and without contrast 08/20/2024 TECHNIQUE: Axial CT images of the brain were obtained. Sagittal and coronal reformats. IV contrast: None DLP: Refer to CT protocol form FINDINGS: Evolving recent right MCA territory infarct with interval mild cortical isodensity compared to the rest of the brain parenchyma suggestive of laminar necrosis. The infarct involves the insula, adjacent frontal, parietal and temporal lobes. No definite hemorrhagic transformation identified. Stable mild mass effect without midline shift or transtentorial herniation. Encephalomalacia from a prior left MCA territory infarct in the parietal and adjacent lateral occipital lobe. No interval adverse change identified. Mucosal thickening in the ethmoid air cells. Deviation of the nasal septum to the left with a bony spur indenting the middle turbinate. IMPRESSION: 1. No interval adverse change. 2. Evolving recent right MCA territory infarct with interval cortical isodensity which favors laminar necrosis. Cortical petechial hemorrhage would be in the differential. No significant mass effect. This report was dictated by a Sales Enablement Manager/Fellow/MOLLY: Julien Cerrato, RES 08/31/2024 17:35 This report was dictated by a Sales Enablement Manager/Fellow/Physician Slitter And Rewinder. I have personally reviewed the images as well as the interpretation and agree with the findings. Report finalized by: Dar Dickinson MD 08/31/2024 17:40 XR chest 1 view [[id number]] Resulted: 08/31/24945 Order Status: Completed Updated: 08/31/24948 Narrative: EXAM: XR CHEST 1 VIEW DATE: 08/31/2024 2:25 Age: 78 years y/o Male INDICATION: r/o PNA COMPARISON: Radiograph from August 29, 2024. TECHNIQUE: AP chest. IMPRESSION: Lines/tubes: None. Heart and mediastinum: The cardiomediastinal silhouette is stable. Aortic vascular wall calcifications are noted. Lungs: Bilateral lower zone opacities may represent atelectasis, aspiration, and/or infection. Pleura: The costophrenic sulci are sharp without evidence of pleural effusion. No pneumothorax is identified on this portable radiograph. Musculoskeletal: The regional skeleton is unchanged. Report finalized by: Lorraine Fairbanks MD 08/31/2024 9:46 US transcranial doppler (TCD) limited [[id number]] Resulted: 08/31/241658 Order Status: Completed Updated: 08/31/241658 Narrative: [facility] Service Contact MAULIK [phone] [place] [address] Tel. [phone] Transcranial Doppler Ultrasound Final Report: Stroke Study Patient Name Chaitanya Tena Indication Active: Acute ischemic stroke (HCC) [I63.9] Study Performed US transcranial doppler (TCD) limited Referring Physician Jack Rivas MD Age 78 y.o. Sex male Study Date 08/30/24 Description: Using a portable, bedside NovChalkablede2 TCD unit, the intracranial arteries were examined according to vascular laboratory protocol. Findings: Transtemporal insonation revealed the bilateral MCAs, bilateral ACAs, bilateral Nicki and bilateral auto transmission specialist. Waveforms are dampened bilaterally. MFV are greater on the right and PI are elevated bilaterally. The highest velocity in right MCA was 96 cm/sec The highest velocity in left MCA was 72 cm/sec The highest velocity in right TIM was 38 cm/sec The highest velocity in left TIM was 57 cm/sec The highest velocity in right TURBO GENERATOR OILER was 18 cm/sec The highest velocity in left TURBO GENERATOR OILER was 20 cm/sec The highest velocity in right MARIA VICTORIA was 40 cm/sec The highest velocity in left MARIA VICTORIA was 59 cm/sec Interpretation: The bilateral anterior circulation waveforms in this study demonstrate a normal appeareance with mean flow velocities greater in the right than left. Right middle cerebral artery MFV 96 compared to MFV 178 in previous study on 08/20/24. PI are elevated in the bilateral anterior circulation. Performing Technologist: Interpreting Physician: Amberly Caputo, RVLisa Linares MD MS [place] XR chest 1 view [[id number]] Resulted: 08/30/24 1000 Order Status: Completed Updated: 08/30/24 1003 Narrative: EXAM: XR CHEST 1 VIEW DATE: 08/29/2024 21:32 INDICATION: congestion COMPARISON: August 24, 2024. TECHNIQUE: AP chest. IMPRESSION: 1. The gastric suction tube is in place. 2. The cardiomediastinal silhouette is stable. Aorta vascular wall calcification. 3. No significant change patchy airspace opacity in the bilateral mid and lower lung zones concerning to multifocal aspiration/pneumonia. 4. There are no significant pleural effusions. No pneumothorax in this portable radiograph. 5. Osseous structures are unchanged. Report finalized by: Ryan Zhu MD 08/30/2024 10:00 FL esophagus barium swallow w video and speech [[id number]] Resulted: 08/29/24 110 Order Status: Completed Updated: 08/29/241105 Narrative: EXAM: FLUOROSCOPY MODIFIED BARIUM SWALLOW DATE: 08/29/2024 9:18 INDICATION: dysphagia . ADDITIONAL INFORMATION: None. COMPARISON: None. TECHNIQUE: Oral barium contrast of differing consistencies was given to the patient to assess swallowing mechanism. The study was performed in conjunction with speech pathology. Fluoroscopy time: 2:38 min Fluoroscopy dose: 12.6 mGy DISCUSSION: Thin: No material enters airway. (PAS-1) [place]: No material enters airway. (PAS-1) Pudding: No material enters airway. (PAS-1) Tablet: No tablet given. Other: None. IMPRESSION: 1. No material enters airway for thin, nectar and pudding. (PAS-1) 2. Please also see detailed chart note by speech pathology. This report was dictated by a Sales Enablement Manager/Fellow/MOLLY: Ron Good RES, MD 08/29/2024 10:15 This report was dictated by a Sales Enablement Manager/Fellow/Physician Slitter And Rewinder. I have personally reviewed the images as well as the interpretation and agree with the findings. Report finalized by: Chente Najera MD 08/29/2024 11:03 XR abdomen 1 view [[id number]] Resulted: 08/29/241120 Order Status: Completed Updated: 08/29/241123 Narrative: EXAM: XR ABDOMEN 1 VIEW DATE: 08/29/2024 1:01 INDICATION: post-NGT placement ADDITIONAL INFORMATION: None. COMPARISON: Abdomen radiograph 08/28/2024 TECHNIQUE: Limited AP view of the abdomen for tube placement assessment. FINDINGS: Feeding tube: None. Enteric suction tube: Gastric suction tube with tip overlying the duodenopyloric junction with sidehole projecting over the mid to distal gastric body. Other tubes, lines and hardware: Overlying EKG leads. Other: No other changes. IMPRESSION: Gastric suction tube as above. This report was dictated by a Sales Enablement Manager/Fellow/MOLLY: Indira Verde RES 08/29/2024 10:30 This report was dictated by a Sales Enablement Manager/Fellow/Physician Slitter And Rewinder. I have personally reviewed the images as well as the interpretation and agree with the findings. Report finalized by: Chente Najera MD 08/29/2024 11:21 XR abdomen 1 view [[id number]] Resulted: 08/29/241121 Order Status: Completed Updated: 08/29/241124 Narrative: EXAM: XR ABDOMEN 1 VIEW INDICATION: Ng tube ADDITIONAL INFORMATION: None. COMPARISON: Abdomen radiograph 08/26/2024 TECHNIQUE: Limited AP view of the abdomen for tube placement assessment. FINDINGS: Feeding tube: None. Enteric suction tube: Gastric suction tube with tip overlying the proximal to mid gastric body with sidehole projecting below the GE junction. Overlying EKG leads. Other tubes, lines and hardware: EKG leads overlie the patient. Other: No other changes. IMPRESSION: Gastric suction tube as above. This report was dictated by a Sales Enablement Manager/Fellow/MOLLY: Indira Verde, RES 08/29/2024 10:33 This report was dictated by a Sales Enablement Manager/Fellow/Physician Slitter And Rewinder. I have personally reviewed the images as well as the interpretation and agree with the findings. Report finalized by: Chente Najera MD 08/29/2024 11:22 XR abdomen 1 view [[id number]] Resulted: 08/26/24 075 Order Status: Completed Updated: 08/26/24753 Narrative: EXAM: XR ABDOMEN 1 VIEW DATE: 08/26/2024 6:28 INDICATION: Ng tube ADDITIONAL INFORMATION: None. COMPARISON: 08/20/2024 at 1353 hours TECHNIQUE: Limited AP view of the abdomen for tube placement assessment. IMPRESSION: Feeding tube: None. Enteric suction tube: A gastric suction tube tip overlies the stomach with the side port near or at the gastroesophageal junction. Consider advancement. Other tubes, lines and hardware: EKG leads overlie the patient. Other: No other changes. Report finalized by: Marin Osuna MD 08/26/2024 7:51 CT BRAIN WO IV CONTRAST [[id number]] Resulted: 08/24/241703 Order Status: Completed Updated: 08/24/241706 Narrative: EXAM: CT BRAIN WITHOUT CONTRAST DATE: 08/24/2024 13:23 INDICATION: anisocoria, decreased mentation COMPARISON: MRI brain 08/20/2024, CT head 08/19/2024. TECHNIQUE: Axial CT images of the brain were obtained. Sagittal and coronal reformats. IV contrast: None DLP: Refer to CT protocol form FINDINGS: Evolving changes of right MCA territory infarct. Internal patchy hypodensities representing the petechial hemorrhage that previously described in MRI scan. No new areas of hemorrhage or edematous changes. No midline shift or brain herniation. Unchanged focal areas of encephalomalacia in the left parietal lobe. Multiple patchy hypodensities in the subcortical and periventricular white matter representing extensive chronic microangiopathic changes. Similar appearance of bilateral prominent ventricles more on the left side with expected secondary changes due to volume loss. Bilateral pseudophakia. Mild mucosal thickening of bilateral maxillary sinus and ethmoid air cells. IMPRESSION: * No interval adverse changes. * Evolving right MCA acute/subacute territorial ischemic infarct with evidence of petechial hemorrhagic transformation. * Unchanged other chronic findings as detailed above. This report was dictated by a Sales Enablement Manager/Fellow/MOLLY: Minh Schroeder RES, MD 08/24/2024 14:39 This report was dictated by a Sales Enablement Manager/Fellow/Physician Slitter And Rewinder. I have personally reviewed the images as well as the interpretation and agree with the findings. Report finalized by: Stephany Wallace MD 08/24/2024 17:04 XR chest 1 view [[id number]] Resulted: 08/24/24 1235 Order Status: Completed Updated: 08/24/24 1239 Narrative: EXAM: XR CHEST 1 VIEW DATE: 08/24/2024 0:25 INDICATION: PNA COMPARISON: X-ray from yesterday. TECHNIQUE: AP chest IMPRESSION: 1. The gastric suction tube is in place. 2. The cardiomediastinal silhouette is stable. Aorta vascular wall calcification. 3. No significant change patchy airspace opacity in the bilateral mid and lower lung zones concerning to multifocal aspiration/pneumonia. 4. There are no significant pleural effusions. No pneumothorax in this portable radiograph. 5. Osseous structures are unchanged. This report was dictated by a Sales Enablement Manager/Fellow/MOLLY: Evy Cotton RES, MD 08/24/2024 10:02 This report was dictated by a Sales Enablement Manager/Fellow/Physician Slitter And Rewinder. I have personally reviewed the images as well as the interpretation and agree with the findings. Report finalized by: Ab Trevino MD 08/24/2024 12:35 XR chest 1 view [[id number]] Resulted: 08/23/24 1349 Order Status: Completed Updated: 08/23/24 1352 Narrative: EXAM: XR CHEST 1 VIEW DATE: 08/23/2024 12:49 INDICATION: infection COMPARISON: Chest x-ray from August 19 TECHNIQUE: AP chest IMPRESSION: Nasogastric tube lies below the level of the diaphragm and inferior edge of the film. Lung volumes are low. This produces spurious widening of the transverse diameter of the heart and mediastinum and crowding of the basal lung markings. Patchy airspace opacities in the mid to lower lungs bilaterally are concerning for multifocal aspiration/pneumonia. No significant pleural effusions. The cardiomediastinal silhouette is normal in size for technique. Tortuous thoracic aorta with calcifications. No pneumothorax in this portable radiograph. Osseous structures are unchanged. Report finalized by: Hannah Randall MD, 08/23/2024 13:49 US carotid artery doppler bilateral [[id number]] Resulted: 08/24/241713 Order Status: Completed Updated: 08/24/241713 Narrative: [facility] Service Contact MS [phone] [place] [address] Tel. [phone] CAROTID DOPPLER ULTRASOUND FINAL REPORT Patient Name Chaitanya Tena Indication Acute ischemic stroke (HCC) [I63.9] Study Performed US carotid artery doppler bilateral Referring Physician Zheng Red MD Age 78 y.o. Sex male Study Date 08/21/24 Description High Resolution Carotid ultrasound with grayscale and color Doppler was performed in both common carotid arteries, their bifurcation, extracranial section of internal carotid, external carotid and vertebral arteries. Both transverse and sagittal planes were interrogated. Findings Doppler flow velocities Right Carotid: PSV for the common carotid: 97/13 cm/sec. PSV for the internal carotid: 184/17 cm/sec. PSV for the external carotid: 206/18 cm/sec. ICA/CCA Ratio: 1.9 Other Comments: Mild to moderate heterogeneous plaque visualized at the bulb and proximal internal carotid artery. Left Carotid: PSV for the common carotid: 81/9 cm/sec. PSV for the internal carotid: 101/24 cm/sec. PSV for the external carotid: 473/33 cm/sec. ICA/CCA Ratio: 1.2 Other Comments: Mild to moderate heterogeneous plaque visualized a proximal internal carotid artery. Right Vertebral: Flow is Antegrade compared to CCA in color and in waveform direction at: 90/0 cm/sec. Left Vertebral: Flow is Antegrade compared to CCA in color and in waveform direction at: 81/13 cm/sec. Interpretation The right internal carotid artery has elevated velocities consistent with 50-69% stenosis, but is more likely to be closer to 50% as the ICA/CCA ratio is not >2. The left ICA is <50%. The bilateral vertebral arteries are antegrade. An arrhythmia was visualized during the exam. Difficult exam due to patient cooperation. The right vertebral artery demonstrates a high resistant waveform suggesting distal occlusion. Left proximal external carotid artery elevated velocities due to stenosis. Performing Technologist: Interpreting Physician: DANIE Beckford MD MS [place] US transcranial doppler (TCD) emboli detection without injection [[id number]] Resulted: 08/21/241538 Order Status: Completed Updated: 08/21/241538 Narrative: [facility] Service Contact MAULIK [phone] [place] [address] Tel. [phone] Transcranial Doppler Ultrasound Final Report: Emboli Detection Patient Name Chaitanya Tena Indication Active: Acute ischemic stroke (HCC) [I63.9] Study Performed US transcranial doppler (TCD) emboli detection without injection Referring Physician Chaitanya Lewis MD Age 78 y.o. Sex male Study Date 08/20/24 Description: A limited 2 Mhz transcranial Doppler ultrasound was performed by insonating bilateral middle cerebral arteries. MCAs were continuously monitored utilizing a monitoring probes and headframe in normal resting position. Flow was monitored for High Intensity Transient Signals for 30 minutes. Findings: HITS 0 Start time: 2:22pm End time: 2:52pm Interpretation: Negative exam- No microembolic HITS were visualized in this study. Right middle cerebral artery mean flow velocities and waveforms suggest >70% stenosis RT MFV 178 and LT MFV 75. Arrhythmia visualized during study. Performing Technologist: Interpreting Physician: Amberly Caputo, VICENTET Soledad Linares MD MS [place] US lower extremity arterial doppler bilateral [[id number]] Resulted: 08/21/24805 Order Status: Completed Updated: 08/21/24808 Narrative: EXAM: US BILATERAL LOWER EXTREMITY ARTERIAL DOPPLER DATE: 08/20/2024 14:00 INDICATION: PAD for poor pulse ADDITIONAL INFORMATION: None. COMPARISON: None. TECHNIQUE: Multiplanar grayscale, color Doppler, and spectral Doppler ultrasound of the bilateral lower extremity arteries. FINDINGS: Right Extremity Spectral Doppler: * Common Femoral Artery: Monophasic moderate plaque. 73 cm/s. * Profunda Femoral Artery: Monophasic mild plaque. 92 * Superficial Femoral Artery: * Proximal portion: Monophasic moderate plaque 69 cm/s. * Midportion: Completely occluded with echogenic plaque. * Distal: Reconstituted with monophasic waveform, 38 cm/s, moderate plaque. * Popliteal Artery: Antegrade monophasic intermediate resistive flow. Mild plaque. 31-35 cm/s * Posterior Tibialis Artery: * Distal: Parvus tardus waveform. 7 cm/s. Moderate plaque. * Anterior Tibialis Artery: Monophasic high resistance waveform. 21 cm/s * Dorsalis Pedis Artery: Monophasic waveform. Mild plaque. 19 cm/s Left Extremity Spectral Doppler: * Common Femoral Artery: Antegrade monophasic high resistive flow. mild. 155 cm/s. * Profunda Femoral Artery: Antegrade monophasic high resistive flow. Mild plaque. 175 cm/s. * Proximal: Monophasic intermediate resistive waveform, 78 cm/s. * Midportion: Complete occlusion. Moderate to severe echogenic plaque. * Distal: Reconstitution with monophasic intermediate resistance waveforms. 32 cm/s. * Popliteal Artery: 31 cm/s, monophasic high resistance waveform. Mild plaque. * Posterior Tibialis Artery: Complete occlusion with moderate plaque. * Anterior Tibialis Artery: Multiphasic waveform Mild plaque. 19 cm/s * Dorsalis Pedis Artery: Antegrade multiphasic flow. Mild plaque. 24 cm/s. Other: None. IMPRESSION: Patent vessels. 1. 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 2. 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 3. Complete occlusion of the left posterior tibialis artery. <20% stenosis: PSV <150 cm/s, ratio <1.5, distal TP & normal PSV 20-49% stenosis: PSV 150-200 cm/s, ratio 1.5-2, distal TP & normal PSV 50-75% stenosis: PSV 200-300 cm/s, ratio 2-4, distal MP & reduced PSV >75% stenosis: PSV >300 cm/s, EDV >40 cm/s, ratio >4, distal blunted MP & reduced PSV Report finalized by: Errol Carvalho MD 08/21/2024 8:06 XR abdomen 1 view [[id number]] Resulted: 08/21/24905 Order Status: Completed Updated: 08/21/24908 Narrative: EXAM: XR ABDOMEN 1 VIEW DATE: 08/20/2024 13:48 INDICATION: ng tube placement ADDITIONAL INFORMATION: None. COMPARISON: 08/19/2024 TECHNIQUE: Limited AP view of the abdomen for tube placement assessment. Number of images: 1. IMPRESSION: Feeding tube: None. Enteric suction tube: A gastric suction tube tip and side port overlie the stomach. Other tubes, lines and hardware: None. Other: No other changes. Report finalized by: Ruby Sheridan MD 08/21/2024 9:06 MRI brain wo IV contrast [[id number]] Resulted: 08/20/24 1511 Order Status: Completed Updated: 08/20/24 151 Narrative: EXAM: MRI BRAIN WITHOUT CONTRAST DATE: 08/20/2024 8:00 INDICATION: R M1 occlusion . COMPARISON: Head CT from August 19, 2024. TECHNIQUE: Multiplanar, multisequence MRI of the brain without contrast. IV contrast: None. FINDINGS: There is an area of restricted diffusion and associated FLAIR hyperintensity involving the right frontal and lateral right temporal lobes. Associated foci of susceptibility artifact are noted within these areas of restricted diffusion. Remote infarct in the left parietal lobe. Confluent areas of T2 FLAIR hyperintensity in the periventricular white matter and centrum semiovale are identified. There is diffuse brain volume loss, with compensatory dilatation of the ventricular system. There is no midline shift. There is mucosal thickening of the paranasal sinuses. There is opacification of the right mastoid cells. IMPRESSION: * Acute/subacute ischemic infarct in the territory of the right MCA, with evidence of petechial hemorrhagic transformation. * Remote infarct in the left parietal lobe. * Moderate chronic microvascular ischemic changes and brain volume loss. This report was dictated by a Sales Enablement Manager/Fellow/MOLLY: Bryan Bowman RES Dr., MD 08/20/2024 10:48 This report was dictated by a Sales Enablement Manager/Fellow/Physician Slitter And Rewinder. I have personally reviewed the images as well as the interpretation and agree with the findings. Report finalized by: Irvin Mejia MD 08/20/2024 15:11 XR abdomen 1 v for placement [[id number]] Resulted: 08/20/24733 Order Status: Completed Updated: 08/20/24736 Narrative: EXAM: XR ABDOMEN 1 V FOR PLACEMENT HISTORY: NGT placement. TECHNIQUE: Frontal radiographic view of the abdomen. Single image provided. COMPARISON: None FINDINGS: Statements: None. Lines and tubes: Enteric tube terminates in the stomach with sidehole distal to the GE junction. Bowel: Visualized bowel gas pattern is unremarkable. Bones: Degenerative changes in the spine. Other: Unchanged appearance of lung bases as compared to chest radiograph from earlier the same day. IMPRESSION: Enteric tube terminates in the stomach with sidehole distal to the GE junction. Report finalized by: Tammy Cruz MD 08/20/2024 7:34 CT BRAIN WO IV CONTRAST [[id number]] Resulted: 08/19/241937 Order Status: Completed Updated: 08/19/241940 Narrative: EXAM: CT BRAIN WITHOUT CONTRAST DATE: 08/19/2024 18:50 INDICATION: after thrombectomy, anisacoria COMPARISON: Comparison was performed with prior CT dated August 19, 2024 at 1:28 p.m. TECHNIQUE: Axial CT images of the brain were obtained. Sagittal and coronal reformats. IV contrast: None DLP: Refer to CT protocol form FINDINGS: Status post recent endovascular mechanical thrombectomy of prior right MCA occlusion. Limited evaluation due to the presence of residual contrast material within the intracranial vessels. Interval development of focal area of abnormal rose-white matter differentiation in the right inferior frontal gyrus, posterior aspect right insula and adjacent right superior temporal gyrus, suspicious for focal area of acute ischemic infarct in the right MCA vascular territory. Unchanged focal area of encephalomalacia in the left parietal lobe. Background diffuse cerebral volume loss with associated chronic microangiopathic white matter changes. Negative for acute intraparenchymal hematoma. Calcified atherosclerotic changes in the carotid siphons and left V4 vertebral artery. Bilateral intraocular lens replacement. Mucosal thickening in the ethmoid air cells and maxillary sinuses with mucous retention cyst on the left side. IMPRESSION: * Interval development of focal area of abnormal rose-white matter differentiation in the right inferior frontal gyrus, posterior aspect right insula and adjacent right superior temporal gyrus, suspicious for acute ischemic infarct in the right MCA vascular territory. * Unchanged other chronic findings, as detailed above. * Negative for acute intraparenchymal hematoma, midline shift or brain herniation. Report finalized by: Elier Truong MD 08/19/2024 19:38 XR chest 1 view [[id number]] Resulted: 08/19/241734 Order Status: Completed Updated: 08/19/241737 Narrative: EXAM: XR CHEST 1 VIEW DATE: 08/19/2024 17:17 INDICATION: Stroke COMPARISON: None. TECHNIQUE: AP chest. FINDINGS: Lines, tubes and hardware: The endotracheal tube tip is 6 cm above the anika. Lungs and pleura: Interstitial lung opacities are noted, bilaterally. The costophrenic sulci are sharp without effusion. Heart and mediastinum: The heart size is normal. Vascular calcifications are present at the aorta. Bones and soft tissues: No acute abnormality. IMPRESSION: Interstitial lung opacities are noted, bilaterally may represent senescent lung changes or scarring. Superimposed atypical infection or pulmonary edema are differential diagnosis considerations. Report finalized by: Anders Varghese MD 08/19/2024 17:35 IR neuro vascular thrombectomy [[id number]] Resulted: 08/19/242201 Order Status: Completed Updated: 08/19/242201 Narrative: PROCEDURE: 1. Diagnostic Cerebral Angiogram 2. Intra-arterial Mechanical Thrombectomy: Right Middle Cerebral Artery DATE: 08/19/2024 14:16 INDICATION: Acute cerebral ischemia HISTORY: 89 years old Male who presented with left-sided weakness and dysarthria. Non-invasive imaging was notable for occlusion of the right middle cerebral artery. They now present for emergent diagnostic cerebral angiogram with possible mechanical thrombectomy. REFERRING PROVIDER: FLORA CHISHOLM ATTENDING: Flora Chisholm M.D. He was present and immediately available for entire procedure, performing all critical portions and reviewing all angiographic results. FELLOW: Armen Sarah M.D.; ANESTHESIA: General endotracheal anesthesia MEDICATIONS: See anesthesia records for remaining medications. COMPARISON: CTA FLUOROSCOPY TIME: 14.6 minutes CONTRAST: 60 cc RADIATION DOSE: Cumulative Air KERMA Frontal: 503.8 mGy Cumulative Air KERMA Lateral: 85.7 mGy COMPLICATIONS: None immediate. CONSENT: The risks, benefits, and alternatives of the procedure were described to the medical proxy in detail. These risks include, but are not limited to, vascular damage, stroke, intracranial hemorrhage, coma, , radiation injury, contrast induced renal dysfunction and leg hematoma/vascular compromise necessitating further intervention or resulting in loss of limb. The medical proxy provided informed consent to the procedure. PROCEDURE: Once informed consent was obtained describing all the risks, benefits and alternatives of the procedure the patient was brought to the interventional suite and placed in the supine position where general anesthesia was administered by the anesthesiology staff. The patient's systolic arterial blood pressure was kept between 120-180 mmHg. The patient was then prepped and draped in the usual sterile fashion. A left femoral approach was planned and using a micropuncture system under ultrasound guidance, a 8-Swedish sheath was placed. However, due to severe peripheral artery disease and presence of left iliac stent, access was then converted t oa radial approach. A micro-puncture system with a 21 gauge needle was used to access the right common radial artery under ultrasound guidance. A 7-Swedish slender sheath was then inserted and 5 mg verapamil, 200 mcg nitroglycerin were infused through the sheath. A 0.35 Terumo Glidewire was advanced through the sheath up to the distal subclavian artery and the sheath was removed and exchanged for a Ballast 088 100 cm long sheath over its dilator. The dilator and wire were removed. Subsequently, a 5-Swedish Penumbra Select Dimas 2 was advanced over the 0.035 Glidewire through the long sheath and into the aortic arch to select the right common carotid artery. Two-dimensional angiography was performed in biplane projections. Occlusion of the right middle cerebral artery was confirmed. The guide catheter was then advanced to the craniocervical junction. The diagnostic catheter was then removed. Under roadmap guidance, a Ceronovus Cereglide aspiration catheter was advanced over a Rebar 18 microcatheter over a Terry 014 microwire to the face of the clot. At this point, the Ceronovus Cereglide was advanced to the face of the clot and flow reversal aspiration was performed by utilizing the Penumbra suction device. The Cereglide catheter was then withdrawn and irrigated in order to reveal any thrombus. Angiogram runs post thrombectomy revealed TICI 2b recanalization.. After final review of the post-thrombectomy angiograms, the guide catheter was then removed and a TR band was placed for hemostasis. The femoral sheath was then removed and hemostasis was achieved with manual pressure. The patient was subsequently transferred to the Intensive Care Unit for further care. TASKS: 1. Right common carotid artery catheterization and 2-D cervical angiogram 2. Right internal carotid artery selective catheterization and 2-D angiogram 3. Intra-arterial Mechanical Thrombectomy: Right middle cerebral artery 4. Application of TR band for right radial artery hemostasis 5. Application of direct manual pressure for left femoral artery hemostasis PRE-TREATMENT FINDINGS: 1. Right common carotid artery: Right common carotid artery AP and lateral cervical angiogram reveals normal antegrade flow into the external and internal carotid arteries with normal filling of the external carotid artery branches. There is approximately 35% stenosis by NASCET criteria of the right internal carotid artery origin that does not demonstrate any flow limitation. Further inspection demonstrates no evidence of dissection, stenosis, aneurysm, or other vascular abnormality within the common carotid artery into the cervical segment of the internal carotid artery. 2. Right internal carotid artery: Right internal carotid artery AP and lateral angiogram reveals normal antegrade filling of the distal internal carotid artery, ophthalmic artery, anterior cerebral artery, middle cerebral artery and the distal branches. Further inspection of the remaining right internal carotid artery circulation revealed no other evidence of cerebral aneurysm, arteriovenous malformation, arterial stenosis or other vascular abnormalities. Capillary and venous phase images were also unremarkable with no evidence of venoocclusive disease. POST-TREATMENT FINDINGS: 1. Right internal carotid artery: Right internal carotid artery AP and lateral angiogram reveals normal antegrade filling of the distal internal carotid artery, ophthalmic artery, anterior cerebral artery, middle cerebral artery and the distal branches. Further inspection of the remaining right internal carotid artery circulation revealed no other evidence of cerebral aneurysm, arteriovenous malformation, arterial stenosis or other vascular abnormalities. Capillary and venous phase images were also unremarkable with no evidence of venoocclusive disease. 2. Left common femoral artery: Left common femoral artery injection demonstrates arterial catheterization above the level of the bifurcation. There was no evidence of dissection or occlusion within the left common femoral artery, but there is significant peripheral arterial disease present. IMPRESSION: 1. Occlusion of the M1 segment of the right middle cerebral artery. 2. Restorationism of flow into the right middle cerebral artery with mTICI 2b recanalization post mechanical thrombectomy. 3. There is approximately 35% stenosis by NASCET criteria of the right internal carotid artery origin that does not demonstrate any flow limitation. 4. Severe peripheral artery disease within the left iliac and femoral artery. This report was dictated by a Sales Enablement Manager/Fellow/MOLLY: Armen Sarah, RES 08/19/2024 22:02 CT angiogram brain neck STROKE [[id number]] Resulted: 08/19/241615 Order Status: Completed Updated: 08/19/241618 Narrative: EXAM: CTA BRAIN EXAM: CTA NECK DATE: 08/19/2024 13:32 INDICATION: code stroke COMPARISON: None. TECHNIQUE: Rapid acquisition spiral CT images of the brain and neck were obtained between the aortic arch and the cranial vertex during intravenous infusion of iodinated contrast for the purposes of CT angiography. 3D angiographic postprocessing with MIP (maximum intensity projection) reformatted images made at the scanner. The source images were also presented for interpretation. Viz. was used in the care of this patient. IV contrast: Refer to MAR/sonography technologist documentation DLP: Refer to CT protocol form FINDINGS: NECK CTA: Aortic arch: The great vessels originate from the aortic arch in the standard configuration. No origin stenosis is identified. Common carotid arteries: Normal. Internal carotid arteries: * Right: There are areas of intimal thickening and calcification in the carotid bulb and bifurcation, but there is no stenosis by NASCET criteria. * Left: There are areas of intimal thickening and calcification in the carotid bulb and bifurcation, but there is no stenosis by NASCET criteria. Vertebral arteries: Normal. Atherosclerosis at the origin and the V4 segment of the left vertebral artery. Nonvascular: The soft tissues of the neck and other incidental structures are normal. BRAIN CTA: Arteries * There is tapering of the distal M1 segment of the right middle cerebral artery, with occlusion of the posterior trunk. Partial patency of some of the branches of the anterior trunk. * Segmental severe narrowing versus occlusion of the distal M1 segment of the left middle cerebral artery, with patency of the more distal branches. Severe narrowing one of the branches of the posterior trunk (series 901, image 124). * Severe stenosis at the right P1 P2 junction. * Severe stenosis in the distal P2 and P3 branches of the left TURBO GENERATOR OILER. Veins: Cannot be evaluated due to the early arterial phase of contrast. Brain parenchyma: The brain parenchyma and other incidental structures are unchanged since the most recent CT. IMPRESSION: * Occlusion of the distal M1 segment of the right middle cerebral artery, extending to the posterior trunk. A few branches of the anterior trunk are patent. * Multifocal narrowing of the intracranial circulation, including the left MCA and both TURBO GENERATOR OILER branches.. * Atherosclerotic changes at the carotid bifurcations, carotid siphons, origin of the left vertebral artery, and V4 segment of the left vertebral artery. (All qualitative and quantitative assessments of carotid bifurcation and proximal internal carotid artery stenosis are made referencing the distal internal carotid artery, NASCET criteria.) Report finalized by: Stephany Wallace MD 08/19/2024 16:16 CT brain STROKE wo IV contrast [[id number]] Resulted: 08/19/241603 Order Status: Completed Updated: 08/19/241606 Narrative: EXAM: CT BRAIN WITHOUT CONTRAST DATE: 08/19/2024 13:20 INDICATION: stroke COMPARISON: None. TECHNIQUE: Axial CT images of the brain were obtained. Sagittal and coronal reformats. IV contrast: None DLP: Refer to CT protocol form FINDINGS: There is no edema, hemorrhage, mass lesion or other acute intracranial abnormality. Hypoattenuation and volume loss in the MCA/TURBO GENERATOR OILER watershed territory in the left parietal lobe, with compensatory dilatation of the temporal horn of the left lateral ventricle consistent with encephalomalacia. No hydrocephalus or mass effect. The skull base, calvarium, and included facial bones are unremarkable. The paranasal sinuses are predominantly clear. Minimal mucosal thickening in the left maxillary sinus. Atherosclerosis of the carotid siphons and distal vertebral arteries. IMPRESSION: * No sign of acute cortical infarct or parenchymal hemorrhage. * Encephalomalacia in the left parietal lobe. This report was dictated by a Sales Enablement Manager/Fellow/MOLLY: Shay Lemus, MILENA 08/19/2024 15:41 This report was dictated by a Sales Enablement Manager/Fellow/Physician Slitter And Rewinder. I have personally reviewed the images as well as the interpretation and agree with the findings. Report finalized by: Stephany Wallace MD 08/19/2024 16:04 Assessment Chaitanya Tena is a 78 y.o. male with past medical history of stroke with no residual deficit, HTN, DM II, and lung cancer admitted on 08/19 as life flight code stroke due to TAPE SEWER, LFD, and dysarthria. Patient was found with R M1 occlusion s/p TNK and endovascular thrombectomy with TICI 2b. 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 Carotid US: The right internal carotid artery has elevated velocities consistent with 50-69% stenosis, The left ICA is <50%, The right vertebral artery demonstrates a high resistant waveform suggesting distal occlusion. Left proximal external carotid artery elevated velocities due to stenosis. ECHO completed with LVEF of 55%, EKG: NSR, and emboli detection was negative. Patient continued to have improvement in his neurological exam. He was restarted on Plavix on 08/31( w/ plans for DAPT for 90 days) . PEG placement was deferred as patient passed FEES and doing well on puree diet. Hospital course complicated by CAP and completing ceftriaxone and azithromycin. Hyperglycemia with endocrine consulted to adjust insulin. 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 Patient now admitted to [facility] for IPR. 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) Etiology: ICAD 08/19 s/p TNK and EVT TICI 2b MRI brain: R MCA large territory infarct with mild hemorrhagic transformation HgA1c: 9.4, LDL: 86 Started on ASA and Plavix on 08/20 and to continue for 90 days Continue Statin Monitor blood pressure and glycemic control Comprehensive Rehabilitation HTN Continue Norvasc 10mg daily Continue Losartan 75 mg daily SBP goal <160 Obtain EKG DM II 08/19: HgA1c: 9.40 Continue 30 units of Lantus in the evening Continue 8 units lispro TID with meals Continue SSI PAD 08/21 Doppler's: bilateral complete occlusion of mid superficial femoral arteries, parvus tardus waveform seen within the distal posterior tibial artery on the right consistent with upstream occlusion, and complete occlusion of the L posterior tibialis artery Vascular consulted and recommended outpatient follow up with Dr. Barajas for further evaluation Dysphagia 08/31: passed FEES Aspiration Precautions Started on Mirtazapine for appetite Comprehensive Rehabilitation Leukocytosis Results from last 7 days Lab Units 09/05/24 0415 WBC 10*3/uL 10.36* HEMOGLOBIN g/dL 12.0* HEMATOCRIT % 38.6 PLATELETS 10*3/uL 369 Recently treated for CAP with azithromycin and ceftriaxone Remain afebrile, continue to trend CBC Thank you for consulting the Hospitalist service. Please EpicChat with questions or concerns. Cosigned by Rosemarie Meyer MD at 09/06/2024 7:16 AM MANAGER WIRELESS GER WIRELESS GER WIRELESS Associated attestation - Betsy, Rosemarie Holloway MD - 09/06/2024 7:16 AM MANAGER WIRELESS I saw and evaluated the patient, participating in the butts portions of the service. I reviewed the midlevel's note. I agree with the MOLLY's findings and plan. Rosemarie Meyer MD Mortgage Loan Processing Clerk, Hospitalist Division [facility] [place] Physician Slitter And Rewinder [facility] 2024-09-04 17:08:46 Associated Order(s): IP CONSULT TO ENDOCRINOLOGY Endocrinology Initial Consult Note Assessment: The patient is a 78 y.o. male w PMH of ischemic stroke with no residual deficits, hypertension, diabetes type 2, lung cancer with last treatment approximately 2 years ago presented to [facility] via [facility] as a code stroke for left-sided weakness. Endocrinology consulted for assistance with management of T2DM. Problem list: T2DM Recommendations: - agree with reduced dose of glargine 36 U daily - start lispro 8 U TID with meals - continue lispro SSI (listed in Epic as "starting dose") Plan was discussed with Dr. Griffith. Thank you for the opportunity to participate in the care of this patient. We will continue to follow. Please page with any questions or concerns. Jose Thurston MD PGY-4 Endocrinology Fellow [facility] Endocrinology Staff: I have personally interviewed and examined patient with the resident/fellow and Endocrine team. I have reviewed the evaluation and agree with issues, findings, and plan of care as documented in today's note. I have amended the note as needed. Data: Labs/imaging reviewed Mdm: * Labs/log/data reviewed in EPIC, and endocrine studies/fingersticks ordered. * External records requested/reviewed. * Case reviewed with primary team. Consult time includes face to face time, review of chart/notes, lab orders, review of medications, review of external records/data. Thank you for allowing us to participate in the patient's care. Annie Griffith MD Mortgage Loan Processing Clerk [place] Endocrinology Date of Consult: 09/04/24 Requesting Physician: Dr Red Consulting Physician: Dr Griffith Reason for Consult:T2DM History of Present Illness: The patient is a 78 y.o. male w PMH of ischemic stroke with no residual deficits, hypertension, diabetes type 2, lung cancer with last treatment approximately 2 years ago presented to [facility] via [facility] as a code stroke for left-sided weakness. Endocrinology consulted for assistance with T2DM management History: Medical: Past Medical History: Diagnosis Date Hypertension Lung cancer (HCC) Stroke (HCC) Surgical: Past Surgical History: Procedure Laterality Date US TRANSCRANIAL DOPPLER (TCD) EMBOLI DETECTION WITHOUT INJECTION 08/20/2024 TRANSCRANIAL DOPPLER (TCD) EMBOLI DETECTION WITHOUT INJECTION 08/20/2024 [facility] Social: Social History Tobacco Use Smoking status: Not on file Smokeless tobacco: Not on file Substance Use Topics Alcohol use: Not on file Family: No family history on file. Prior to admission medications Current Outpatient Medications Medication Instructions amLODIPine (NORVASC) 10 mg, Oral, Daily aspirin EC 81 mg, Oral, Daily aspirin 324 mg, Nasogastric, Daily atorvastatin (LIPITOR) 80 mg, Oral, Daily clopidogrel (PLAVIX) 75 mg, Oral, Daily hydroCHLOROthiazide (HYDRODIURIL) 25 mg, Oral, Daily insulin glargine (LANTUS) 25 Units, Subcutaneous, Daily insulin glargine (LANTUS) 48 Units, Subcutaneous, Every evening insulin lispro (HUMALOG, ADMELOG) 18 Units, Subcutaneous, 3 times daily with meals losartan (COZAAR) 75 mg, Oral, Daily metFORMIN (GLUCOPHAGE) 500 mg, Oral, 3 times daily with meals mirtazapine (REMERON) 7.5 mg, Oral, Nightly modafinil (PROVIGIL) 100 mg, Oral, Daily polyethylene glycol (PEG) 3350 (MIRALAX) 17 g, Per G Tube, Every 12 hours Allergies No Known Allergies Physical Exam: Patient Vitals for the past 6 hrs: BP Temp Temp src Pulse Resp SpO2 09/04/24 1403 -- -- -- 90 18 96 % 09/04/24 1301 -- -- Axillary 93 -- 95 % 09/04/24 1301 131/68 -- -- -- -- -- 09/04/24 1301 -- (!) 35.8 ?C (96.4 ?F) Axillary -- -- -- Physical Exam Constitutional: The patient is not in acute distress. HENT: Normocephalic and atraumatic. DHT in place. Eyes: No scleral icterus, Extraocular movements intact , Conjunctivae normal, Pupils are equal, round, and reactive to light. Cardiovascular: Normal rate and regular rhythm with no added sounds Pulmonary: Pulmonary effort is normal. No respiratory distress. Normal breath sounds. No wheezing. Abdominal:Abdomen is soft., bowel sounds are normal. no distension. no abdominal tenderness. Skin:Skin is warm. Neurological: Difficult to arouse, could not assess orientation Data: Pertinent Labs : Labs in chart were reviewed. GER WIRELESS GER WIRELESS Endocrinology Physician [facility] 2024-09-04 09:46:20 Associated Order(s): IP CONSULT TO NUTRITION SERVICES 09/05: pt ate ~75% of breakfast and 50% of ensure today. Plan to remove ngt today and dc tf. Carlitos aHy RDN, LD, [facility] NUTRITION ASSESSMENT - ADULT Unit: 5jones Reason for RD Encounter: consult f/u Consult Reason : Tube Feeding Findings Nutrition Diagnosis: Nutrition Diagnosis: Inadequate oral intake related to AMS as evidenced by NPO status and requiring enteral nutrition for nutrient. EVALUATION : No Change * Interventions and Recommendation: If po intake >50% +ons or >75% okay to dc ngt. If po <50% recommend nocturnal tf of fibersource hn @ 80 ml/hr x12 hr (provides 1152 kcal, 52 g pro) Continue diet per glazier artist Continue ensure tid NUTRITION RISK: Moderate, in 5-7 days Next Date for Nutrition Services Follow Up: 09/11/24 Communication : RN verbally Current Nutrition: Dietary Orders (From admission, onward) Start Ordered 09/02/24 1041 Adult Diet Dysphagia; 0 - Thin Liquids; 4 - Pureed (Dysphagia Pureed); No; 1:1 Feeding Diet effective now Question Answer Comment Diet type Dysphagia Liquid Consistency or Liquid Type: 0 - Thin Liquids Modify Texture or Food Level (Dysphagia): 4 - Pureed (Dysphagia Pureed) Room Service: No Tray Precautions: 1:1 Feeding 09/02/24 1040 Orderered Tube Feeds and Supplements Medication Dose Route Frequency Provider Last Rate Last Admin Ensure Enlive liquid 1 Container 1 Container Oral TID with meals Roger Jones MD 1 Container at 09/03/24 1700 [Held by provider] Fibersource HN liquid Nasogastric Continuous Chaitanya Lewis MD Stopped at 09/02/24 1144 PO/EN/PN Intakes: Percent Meals Eaten for the past 48 hrs: Percent Meals Eaten (%) 09/03/24 1600 50 09/03/24 0800 66 09/02/24 1600 25 Nutrition Visit Information: 09/04: pt seen with grandson at bedside feeding pt. Pt is on puree diet/thin liq with 1:1 feeding. Per team report pt has been eating ~60%. Observed pt eating during assessment. Pt ate ~50% of meal during assessment. Pt with ons ordered, family to offer ons after meals. Denies any n/v/c/d. Cortrak remains in place but tf is held. If po intake is adequate plan to take out cortrak. Rn to document po intake. Per glazier artist pt with decreased ravi this am, did not eat breakfast today. 08/31: diet advanced to puree/thin liq per glazier artist. Will order ensure tid to help with po intake per discussion with team. 08/28: failed FEES x2 08/24 and 08/26, plan for MBS today but unable to coordinate. Per glazier artist note, pt presenting with likely need for chcf EN. RD will f/u on nutrition plan for discharge. 08/21: pt not appropriate for assessment d/t ams. Pt was previously okay for puree/thin textures but now npo d/t change in mentation. Ngt is in place, tf running @ goal rate. Uto hx from pt, no family at bedside to provide hx. Will order tf to meet needs. Anthropometrics: 90.3kg Height: 178 cm (5' 10.08") Height Method: Estimated Weight: 88 kg (194 lb) Body mass index is 27.77 kg/m?. Venus body weight: 73.2 kg (161 lb 5.4 oz) Adjusted ideal body weight: 79.1 kg (174 lb 6.4 oz) Wt Readings from Last 10 Encounters: 08/28/24 88 kg (194 lb) Estimated Nutrition Needs: Weight Used for Equation Calculations: 90.3 kg (199 lb 1.2 oz) Calculated Energy Needs Using Equations Height: 1.78 m (5' 10.08") Weight Used for Equation Calculations: 90.3 kg (199 lb 1.2 oz) Energy Equation Used: Rule of thumb (kcal/kg) Energy Lower Range: 22 (kcal/kg) Energy Upper Range: 25 (kcal/day) Energy Needs Lower Range: 1987 kcal/day (kcal/day) Energy Needs Upper Range: 2257 kcal/day Minute Ventilation (L/min): 6.5 L/min Temp: (!) 35.8 ?C (96.4 ?F) (36.8) Estimated Protein Needs (g/kg) Protein Lower Range: 1.0 (g/kg) Protein Upper Range: 1.25 (g/day) Protein Lower Range: 90 g/day (g/day) Protein Upper Range: 113 g/day Fluid Needs Fluid Needs Method: mL/kg/day (mL/kg) Fluid Needs: 30 (mL/day) Fluid Needs (Calculated): 2709 mL/day Nutrition Physical Findings per dry cleaner apprentice: Orientation Level: Disoriented to time; Disoriented to situation O2 Delivery Method: Nasal cannula Gastrointestinal (WDL): WDL Abdomen Inspection: Soft Abdominal Tenderness: Soft Bowel Sounds: All quadrants Bowel Sounds (All Quadrants): Active Last BM Date: 08/30/24 Gastrointestinal Symptoms: Vomiting LUE: Full movement RUE: Full movement LLE: Weakness RLE: Weakness Gastric Tube 08/31/24 Cortrak 10 Fr Right nostril (Active) Wound 08/19/24 Surgical Anterior;Right Groin (Active) Wound 08/19/24 Surgical Anterior;Left Groin (Active) Wound 08/19/24 Surgical Anterior;Right Wrist (Active) Wound 08/23/24 Midline Abdomen (Active) Nutrition Focused Physical Exam - Muscles and Fat: Assessment of Muscle Status Date Assessed: 09/04/24 Muscle Status: Deficits present [place]: [id number] deficit: Slight depression Assessment of Fat Status Date Assessed: 09/04/24 Fat Status: No deficits noted Basic Information: Admitting diagnosis: Acute ischemic stroke (HCC) [I63.9] Clinical course: Patient Chaitanya Tena ( 1945) is a 78 year old male with medical history of prior ischemic stroke with no residul deficits, HTN, DM II, Lung Malignancy? (last treatment was 2 years ago) per daughter presenting as [facility] code stroke for left sided weakness. Patient's LKW was 11:40 AM today when patient was getting ready to ride his bike with daughter. Around 11:45 AM today, patient started having left face drooling and becoming dysarthric, left sided upper and lower extremity weakness. Medications: amLODIPine, 10 mg, Oral, Daily aspirin, 324 mg, Nasogastric, Daily atorvastatin, 80 mg, Oral, Daily caffeine, 100 mg, Oral, Daily clopidogrel, 75 mg, Nasogastric, Daily Docusate Sodium, 100 mg, Per G Tube, q12h Ensure Enlive, 1 Container, Oral, TID with meals heparin, 5,000 Units, Subcutaneous, q8h insulin glargine, 36 Units, Subcutaneous, Every evening insulin lispro, 18 Units, Subcutaneous, TID with meals ipratropium-albuterol, 3 mL, Nebulization, q6h losartan, 75 mg, Oral, Daily melatonin, 3 mg, Per G Tube, Nightly mirtazapine, 7.5 mg, Oral, Nightly modafinil, 100 mg, Oral, Daily polyethylene glycol (PEG) 3350, 17 g, Per G Tube, q12h [Held by provider] QUEtiapine, 12.5 mg, Oral, Daily before breakfast sennosides, 1 tablet, Oral, Nightly sodium chloride, 10 mL, Intravenous, q12h BRAD sodium chloride, 10 mL, Intravenous, q12h BRAD [Held by provider] Fibersource HN, , Last Rate: Stopped (09/02/24 1144) PRN medications: acetaminophen, dextrose, dextrose, glucagon, insulin lispro, labetalol, LORazepam, [COMPLETED] Insert peripheral IV AND [COMPLETED] Saline lock IV AND sodium chloride, sodium chloride, sodium chloride, sodium chloride Labs: Pertinent Labs : Lab Results Component Value Date Sodium Lvl 142 09/04/2024 Potassium Lvl 3.9 09/04/2024 Chloride Lvl 104 09/04/2024 CO2 Lvl 30.1 09/04/2024 BUN 24 (H) 09/04/2024 Creatinine Lvl 1.05 09/04/2024 Glucose Lvl 59 (L) 09/04/2024 POC Glu 113 (H) 09/04/2024 Lab Results Component Value Date Hgb A1C 9.40 (H) 08/19/2024 Review / Management: I/O 24 HRS: Intake/Output Summary (Last 24 hours) at 09/04/2024 1445 Last data filed at 09/03/2024 1700 Gross per 24 hour Intake -- Output 1300 ml Net -1300 ml Unmeasured Stool Occurrence: 1 Monitoring and Evaluation: MONITORING AND EVALUATION: Weight changes, Muscle wasting, Fat wasting, Skin, Digestive/abdominal assessment, Nutrition Intake : EN intake and tolerance, and Labs: GOAL: >75% of estimated needs met: Evaluation: progressing, not met Carlitos Hay RDN, LD, [facility] Mon-Wed Pager#: [phone] Weekend/oracle database consultant pager: [phone] GER WIRELESS GER WIRELESS Nutrition [facility] 2024-09-03 08:48:55 Cardiology Consult Patient Name: Chaitanya Tena Date of consult: 09/03/2024 Attending Physician: Jack Rivas MD Rand Tacker: Dr.Ijeoma Miles Reason For Consult Evaluation for internal loop recorder placement in the setting of cryptogenic stroke History Of Present Illness Chaitanya Tena is a 78-year-old male patient with past medical history significant for ischemic stroke with no residual deficits, hypertension, diabetes type 2, lung cancer with last treatment approximately 2 years ago presented to [facility] via [facility] as a code stroke for left-sided weakness. On presentation NIH stroke scale 17, preadmit MRS 0, found to have right M1 occlusion status post IV TNK with TICI 2b. During the hospitalization patient also with concern for community-acquired pneumonia and completed antibiotic course. 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 Hemoglobin A1c is 9.4, LDL 86. Embolic detection was negative. Echocardiogram with LVEF 55%. Carotid artery ultrasound revealed occlusion of the distal M1 segment of the right middle cerebral artery; multifocal narrowing of the intracranial, right MCA greater than 70% stenosis. Right lower extremity Doppler showed bilateral complete occlusion of the mid SFA and complete occlusion of the left posterior tibialis artery. Plan for outpatient follow-up with vascular surgery as per primary team. EP cardiology, Dr. Miles consulted for evaluation for internal loop recorder placement in the setting of ischemic stroke of unknown etiology Past Medical History 1. Hypertension 2. Diabetes mellitus type 2 3. History of ischemic stroke 4. History of lung cancer Past Surgical History Past Surgical History: Procedure Laterality Date US TRANSCRANIAL DOPPLER (TCD) EMBOLI DETECTION WITHOUT INJECTION 08/20/2024 US TRANSCRANIAL DOPPLER (TCD) EMBOLI DETECTION WITHOUT INJECTION 08/20/2024 [facility] Family History Noncontributory Social History No history of smoking, alcohol use or illicit drug use Allergies No Known Allergies NKDA NKFA Medications 1. Aspirin 325 mg p.o. daily 2. Plavix 75 mg p.o. daily 3. Norvasc 10 mg p.o. daily 4. Modafinil 100 mg p.o. daily 5. Losartan 75 mg p.o. daily Review of Systems As noted in HPI Last Recorded Vitals BP: 139/61, HR: 96 BPM, Temp: 36.9 Vitals: 09/03/24 0853 BP: Pulse: 96 Resp: Temp: SpO2: 93% Physical Exam General: Awake, alert, and oriented x 2, no apparent distress. HEENT: Normocephalic, atraumatic, PERRLA, EOMI. Oropharynx clear, moist mucus membranes. Neck: Supple, No JVD. Cardiovascular: Regular rate and rhythm, S1, S2, no S3 or S4, no murmurs. Respiratory: CTAB, no wheezing, no rales or rhonchi. On room air. Abdomen: Soft, non-tender, no distended, no guarding or rebound tenderness, DHT in place Extremities: No lower extremity edema, BLE warm to touch, peripheral pulses are palpable. Neurologic: Awake, follows commands, moves all extremities, for details please refer to stroke progress note Skin: No rashes or lesion noted. Diagnostics: Pertinent Labs : Lab Results Component Value Date WBC 11.90 (H) 09/03/2024 Hgb 11.5 (L) 09/03/2024 Hct 37.0 (L) 09/03/2024 Plt Count 351 09/03/2024 Lab Results Component Value Date Sodium Lvl 139 09/03/2024 Potassium Lvl 4.4 09/03/2024 Chloride Lvl 102 09/03/2024 CO2 Lvl 29.5 09/03/2024 BUN 21 09/03/2024 Creatinine Lvl 1.12 09/03/2024 Glucose Lvl 195 (H) 09/03/2024 POC Glu 236 (H) 09/03/2024 Encounter Date: 08/19/24 ECG 12 lead Result Value Ventricular Rate 86 Atrial Rate 86 HI Interval 146 QRS Duration 68 QT/QTc 374 QTc Calculation 447 P-[place] 65 R-[place] -23 T-[place] 83 Impression SINUS RHYTHM LOW QRS VOLTAGE -- CONSIDER PULMONARY DISEASE, PERICARDIAL EFFUSION, OR NORMAL VARIANT SEPTAL INFARCTION AGE UNDETERMINED ABNORMAL ECG WHEN COMPARED WITH ECG OF 29-AUG-2024 19:44, MANUAL COMPARISON REQUIRED, DATA IS UNCONFIRMED Chest X ray, 08/31/24: Heart and mediastinum: The cardiomediastinal silhouette is stable. Aortic vascular wall calcifications are noted. Lungs: Bilateral lower zone opacities may represent atelectasis, aspiration, and/or infection. Pleura: The costophrenic sulci are sharp without evidence of pleural effusion. No pneumothorax is identified on this portable radiograph. Musculoskeletal: The regional skeleton is unchanged. Echocardiogram, 08/20/24: Technically difficult study. Left Ventricle: Left ventricle size is normal. Normal wall thickness in the left ventricle. Normal systolic function based on apical views. LVEF 3D is 55%. LV GLS is -15.9%. Right Ventricle: Right ventricle size is normal. Normal systolic function in the right ventricle. Suboptimal valvular assessment. Aortic Valve: Aortic valve not assessed due to poor image quality. Trace aortic regurgitation present. Peak aortic velocity is mildly increased at 2.2m/s. Mitral Valve: Mildly thickened leaflets in the mitral valve. Mild mitral annular calcification. Trace mitral regurgitation present. Tricuspid Valve: Tricuspid valve not assessed due to poor image quality. There is insufficient TR jet to estimate pulmonary pressure. Pericardium: No pericardial effusion present. Evidence of epicardial fat. CT brain wo contrast, 08/31/24: IMPRESSION: 1. No interval adverse change. 2. Evolving recent right MCA territory infarct with interval cortical isodensity which favors laminar necrosis. Cortical petechial hemorrhage would be in the differential. No significant mass effect. Assessment/Plan 78-year-old male patient with past medical history significant for old ischemic stroke, hypertension, diabetes mellitus type 2, and lung cancer was admitted with right MCA ischemic stroke, status post IV TNK. Evaluation for internal loop recorder placement: -No known history of atrial arrhythmia, atrial fibrillation, atrial flutter or atrial tachycardia -Patient has never been evaluated by a structural shop helper per patient -Admission echo with normal EF, 55% -Twelve-lead EKG with normal sinus rhythm -Given cryptogenic stroke (intracranial atherosclerotic disease vs cardioembolic source), plan for internal loop recorder placement to monitor for atrial arrhythmia -The indications, risks, benefits and alternative of internal loop recorder explained to patient. Patient agrees to proceed. However, given patient's neurological and cognitive status will discuss the procedure with patient's daughter. -Patient's case discussed with Dr. Miles, who will discuss the procedure in detail with patient and daughters before obtaining consent 2. Right MCA ischemic stroke: -Status post IV TNK -On aspirin, Plavix. Plan for DAPT for 90 days -Carotid ultrasound with greater than 70% right MCA stenosis, endovascular consult per stroke service -PT/OT/speech therapy 3. Hypertension: -SBP 110s to 130s -On Norvasc 10 mg p.o. daily and losartan 75 mg p.o. daily 4. Hyperlipidemia: -On high intensity statin, Lipitor 80 mg at bedtime 5. Diabetes mellitus type 2: -On scheduled Lantus and lispro -Fingerstick blood sugar checks before meals and at bedtime -Management per primary team 6. DVT prophylaxis: -Subcutaneous heparin Thank you for allowing us to participate in the care of this patient. We will follow the patient along with you. The above assessment and plan has been discussed with attending Dr. Miles, who is in full agreement. Further recommendations pending hospital course Madiha Norton, DNP, FIELD GAUGER, ACNP- Department of Cardiology Contact: ABODO Secure Chat [facility] Nurse Practitioner [facility] 2024-08-28 15:50:48 08/31: diet advanced to puree/thin liq per glazier artist. Will order ensure tid to help with po intake per discussion with team. Carliots Hay RDN, LD, [facility] NUTRITION ASSESSMENT - ADULT Unit: [id number] Reason for RD Encounter: consult Consult Reason : Tube Feeding 08/28: Follow up Findings Nutrition Diagnosis: Nutrition Diagnosis: Inadequate oral intake related to AMS as evidenced by NPO status and requiring enteral nutrition for nutrient. EVALUATION : No Change * Interventions and Recommendation: Continue Fibersource hn @ 80 ml/hr x22hr (provides 2112 kcal, 95 g pro) Diet per glazier artist NUTRITION RISK: Moderate, in 5-7 days Next Date for Nutrition Services Follow Up: 09/04/24 Communication : RN verbally Current Nutrition: Dietary Orders (From admission, onward) Start Ordered 08/23/24 0001 NPO Diet Diet effective midnight 08/22/24 1556 Orderered Tube Feeds and Supplements Medication Dose Route Frequency Provider Last Rate Last Admin Enteral Free water Flush Nasogastric Continuous Bhumika Wild MD Fibersource HN liquid Nasogastric Continuous Chaitanya Lewis MD 40 mL/hr at 08/21/24 1813 Rate Change at 08/21/24 1813 PO/EN/PN Intakes: No data found. Per pump hx: 3090ml over 3 days (~60% est needs) Nutrition Visit Information: 08/28: failed FEES x2 08/24 and 08/26, plan for MBS today but unable to coordinate. Per glazier artist note, pt presenting with likely need for chcf EN. RD will f/u on nutrition plan for discharge. 08/21: pt not appropriate for assessment d/t ams. Pt was previously okay for puree/thin textures but now npo d/t change in mentation. Ngt is in place, tf running @ goal rate. Uto hx from pt, no family at bedside to provide hx. Will order tf to meet needs. Anthropometrics: 90.3kg Height: 178 cm (5' 10.08") Height Method: Estimated Weight: 88 kg (194 lb) Body mass index is 27.77 kg/m?. Venus body weight: 73.2 kg (161 lb 5.4 oz) Adjusted ideal body weight: 79.1 kg (174 lb 6.4 oz) Wt Readings from Last 10 Encounters: 08/28/24 88 kg (194 lb) Estimated Nutrition Needs: Weight Used for Equation Calculations: 90.3 kg (199 lb 1.2 oz) Calculated Energy Needs Using Equations Height: 1.78 m (5' 10.08") Weight Used for Equation Calculations: 90.3 kg (199 lb 1.2 oz) Energy Equation Used: Rule of thumb (kcal/kg) Energy Lower Range: 22 (kcal/kg) Energy Upper Range: 25 (kcal/day) Energy Needs Lower Range: 1987 kcal/day (kcal/day) Energy Needs Upper Range: 2257 kcal/day Minute Ventilation (L/min): 6.5 L/min Temp: 36.6 ?C (97.8 ?F) Estimated Protein Needs (g/kg) Protein Lower Range: 1.0 (g/kg) Protein Upper Range: 1.25 (g/day) Protein Lower Range: 90 g/day (g/day) Protein Upper Range: 113 g/day Fluid Needs Fluid Needs Method: mL/kg/day (mL/kg) Fluid Needs: 30 (mL/day) Fluid Needs (Calculated): 2709 mL/day Nutrition Physical Findings per dry cleaner apprentice: Orientation Level: Disoriented to time; Disoriented to situation O2 Delivery Method: Nasal cannula Gastrointestinal (WDL): X Abdomen Inspection: Soft; Rounded Abdominal Tenderness: Soft; Nontender Bowel Sounds: All quadrants Bowel Sounds (All Quadrants): Active Last BM Date: 08/28/24 Gastrointestinal Symptoms: Vomiting LUE: Full movement RUE: Full movement LLE: Full movement RLE: Full movement Gastric Tube 08/20/24 Nasogastric 16 Fr Right nostril (Active) Wound 08/19/24 Surgical Anterior;Right Groin (Active) Wound 08/19/24 Surgical Anterior;Left Groin (Active) Wound 08/19/24 Surgical Anterior;Right Wrist (Active) Wound 08/23/24 Midline Abdomen (Active) Nutrition Focused Physical Exam - Muscles and Fat: Assessment of Muscle Status Date Assessed: 08/21/24 Muscle Status: No change from prior exam Assessment of Fat Status Date Assessed: 08/21/24 Fat Status: No change from prior exam Basic Information: Admitting diagnosis: Acute ischemic stroke (HCC) [I63.9] Clinical course: Patient Chaitanya Tena ( 1945) is a 78 year old male with medical history of prior ischemic stroke with no residul deficits, HTN, DM II, Lung Malignancy? (last treatment was 2 years ago) per daughter presenting as [facility] code stroke for left sided weakness. Patient's LKW was 11:40 AM today when patient was getting ready to ride his bike with daughter. Around 11:45 AM today, patient started having left face drooling and becoming dysarthric, left sided upper and lower extremity weakness. Medications: amLODIPine, 10 mg, Oral, Daily aspirin, 324 mg, Nasogastric, Daily atorvastatin, 80 mg, Oral, Daily clopidogrel, 75 mg, Nasogastric, Daily Docusate Sodium, 100 mg, Per G Tube, q12h heparin, 5,000 Units, Subcutaneous, q8h insulin NPH-insulin regular, 15 Units, Subcutaneous, q6h losartan, 75 mg, Oral, Daily melatonin, 5 mg, Per G Tube, Nightly polyethylene glycol (PEG) 3350, 17 g, Per G Tube, q12h sennosides, 1 tablet, Oral, Nightly sodium chloride, 10 mL, Intravenous, q12h BRAD sodium chloride, 10 mL, Intravenous, q12h BRAD Enteral Free water Flush, Fibersource HN, , Last Rate: 40 mL/hr at 08/21/24 1813 PRN medications: dextrose, dextrose, glucagon, insulin lispro, ipratropium-albuterol, labetalol, LORazepam, [COMPLETED] Insert peripheral IV AND [COMPLETED] Saline lock IV AND sodium chloride, sodium chloride, sodium chloride, sodium chloride Labs: Pertinent Labs : Lab Results Component Value Date Sodium Lvl 137 08/28/2024 Potassium Lvl 4.8 (H) 08/28/2024 Chloride Lvl 101 08/28/2024 CO2 Lvl 26.1 08/28/2024 BUN 21 08/28/2024 Creatinine Lvl 1.08 08/28/2024 Glucose Lvl 217 (H) 08/28/2024 POC Glu 173 (H) 08/28/2024 Lab Results Component Value Date Hgb A1C 9.40 (H) 08/19/2024 Review / Management: I/O 24 HRS: Intake/Output Summary (Last 24 hours) at 08/28/2024 1554 Last data filed at 08/28/2024 1300 Gross per 24 hour Intake 800 ml Output -- Net 800 ml Unmeasured Stool Occurrence: 1 Monitoring and Evaluation: MONITORING AND EVALUATION: Weight changes, Muscle wasting, Fat wasting, Skin, Digestive/abdominal assessment, Nutrition Intake : EN intake and tolerance, and Labs: GOAL: >75% of estimated needs met: Evaluation: progressing, not met Adrianna Caro, MPH, LD, RD, [facility] Weekend/oracle database consultant pager: [phone] [facility] [place], [place] 2024-08-21 16:01:52 Reason For Consult LLE PAD History Of Present Illness Chaitanya Tena is a 78 y.o. 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 Patient went with [facility] for TNK and thrombectomy. On exam it is noted the patient has decreased pulse exam on the LLE so a US was done and then Vascular surgery consulted for further evaluation. Past Medical History He has a past medical history of Hypertension, Lung cancer (HCC), and Stroke (HCC). Surgical History He has a past surgical history that includes US transcranial doppler (TCD) emboli detection without injection (08/20/2024). Social History He has no history on file for tobacco use, alcohol use, and drug use. Allergies Patient has no known allergies. Medications Medications Prior to Admission Medication Sig Dispense Refill Last Dose/Taking aspirin EC 81 MG EC tablet Take 81 mg by mouth 1 time each day. metFORMIN, OSM, (Fortamet) 500 MG 24 hr tablet Take 500 mg by mouth in the evening. Take with meals.. Do not crush, chew, or split. Review of Systems Unable to assess Physical Exam Physical Exam: HENT: Head: Normocephalic and atraumatic. Eyes: Extraocular Movements: Extraocular movements intact. Conjunctiva/sclera: Conjunctivae normal. Cardiovascular: Rate and Rhythm: Normal rate and regular rhythm. Comments: Has no lower extremity wounds, BLE warm, motor intact. Abdominal: General: Abdomen is flat. Palpations: Abdomen is soft. Neurological: Comments: Aphasic. Last Recorded Vitals Blood pressure 137/63, pulse 75, temperature 37.5 ?C (99.5 ?F), resp. rate 16, weight 90.3 kg (199 lb), SpO2 94%. Relevant Results Pertinent Labs : Lab Results Component Value Date WBC 10.35 (H) 08/21/2024 Hgb 11.5 (L) 08/21/2024 POC A Hct (calc) 42.0 08/20/2024 Hct 36.3 (L) 08/21/2024 Plt Count 437 (H) 08/21/2024 Lab Results Component Value Date POC A Na 129 (L) 08/20/2024 Sodium Lvl 137 08/21/2024 POC A K 4.1 08/20/2024 Potassium Lvl 3.8 08/21/2024 POC Chloride 95 08/20/2024 Chloride Lvl 100 08/21/2024 CO2 Lvl 31.6 (H) 08/21/2024 BUN 14 08/21/2024 Creatinine Lvl 0.96 08/21/2024 POC A Glu 221 (H) 08/20/2024 Glucose Lvl 283 (H) 08/21/2024 POC Glu 293 (H) 08/21/2024 Lab Results Component Value Date Calcium Lvl 8.6 08/21/2024 Magnesium 1.70 08/21/2024 Phosphorus Lvl 2.7 08/21/2024 Lab Results Component Value Date PTT 37.6 (H) 08/19/2024 Prothrombin Time (PT) 12.9 08/19/2024 INR 0.95 08/19/2024 Assessment & Plan Principal Problem: Acute ischemic stroke (HCC) Plan: On exam this patient is hemodynamically stable On exam the patient has no lower extremity wounds, and they are warm with motor intact Reviewed the US results with Dr. Barajas and we do not recommend any acute surgical intervention. Since the patient just had a new stroke with thrombectomy we recommend the patient recover from this event and then follow-up with Dr. Barajas as an outpatient for further evaluation. Please call [phone] for an appointment in 1 month. We will sign off for now, please call with any further questions. [facility] Gerontology Nurse Practitioner [facility] 2024-08-21 10:12:14 Associated Order(s): IP CONSULT TO NUTRITION SERVICES; IP CONSULT TO NUTRITION SERVICES NUTRITION ASSESSMENT - ADULT Unit: strk Reason for RD Encounter: consult Consult Reason : Tube Feeding Findings Nutrition Diagnosis: Nutrition Diagnosis: Inadequate oral intake related to AMS as evidenced by NPO status and requiring enteral nutrition for nutrient. * Interventions and Recommendation: Fibersource hn @ 80 ml/hr x22hr (provides 2112 kcal, 95 g pro) Diet per glazier artist NUTRITION RISK: Moderate, in 5-7 days Next Date for Nutrition Services Follow Up: 08/28/24 Communication : RN verbally Current Nutrition: Dietary Orders (From admission, onward) Start Ordered 08/19/24 1358 NPO Diet Diet effective now 08/19/24 1358 Orderered Tube Feeds and Supplements Medication Dose Route Frequency Provider Last Rate Last Admin Enteral Free water Flush Nasogastric Continuous Bhumika Wild MD peptamen AF liquid Nasogastric Continuous Bhumika Wild MD 20 mL/hr at 08/20/24 0647 Feeding Given at 08/20/24 0647 PO/EN/PN Intakes: No data found. Nutrition Visit Information: 08/21: pt not appropriate for assessment d/t ams. Pt was previously okay for puree/thin textures but now npo d/t change in mentation. Ngt is in place, tf running @ goal rate. Uto hx from pt, no family at bedside to provide hx. Will order tf to meet needs. Anthropometrics: 90.3kg Weight: There is no height or weight on file to calculate BMI. Height is required to calculate ideal body weight. Wt Readings from Last 10 Encounters: 08/20/24 90.3 kg (199 lb) Estimated Nutrition Needs: Weight Used for Equation Calculations: 90.3 kg (199 lb 1.2 oz) Calculated Energy Needs Using Equations Weight Used for Equation Calculations: 90.3 kg (199 lb 1.2 oz) Energy Equation Used: Rule of thumb (kcal/kg) Energy Lower Range: 22 (kcal/kg) Energy Upper Range: 25 (kcal/day) Energy Needs Lower Range: 1987 kcal/day (kcal/day) Energy Needs Upper Range: 2257 kcal/day Minute Ventilation (L/min): 6.5 L/min Temp: 37.2 ?C (98.9 ?F) Estimated Protein Needs (g/kg) Protein Lower Range: 1.0 (g/kg) Protein Upper Range: 1.25 (g/day) Protein Lower Range: 90 g/day (g/day) Protein Upper Range: 113 g/day Fluid Needs Fluid Needs Method: mL/kg/day (mL/kg) Fluid Needs: 30 (mL/day) Fluid Needs (Calculated): 2709 mL/day Nutrition Physical Findings per dry cleaner apprentice: Orientation Level: Disoriented to place; Disoriented to time; Disoriented to situation O2 Delivery Method: Nasal cannula Gastrointestinal (WDL): X Abdomen Inspection: Soft Abdominal Tenderness: Nontender Bowel Sounds: All quadrants Bowel Sounds (All Quadrants): Active Gastrointestinal Symptoms: Vomiting LUE: Limited movement RUE: Full movement LLE: Limited movement RLE: Limited movement Gastric Tube 08/20/24 Nasogastric 16 Fr Right nostril (Active) Wound 08/19/24 Surgical Anterior;Right Groin (Active) Wound 08/19/24 Surgical Anterior;Left Groin (Active) Wound 08/19/24 Surgical Anterior;Right Wrist (Active) Nutrition Focused Physical Exam - Muscles and Fat: Assessment of Muscle Status Date Assessed: 08/21/24 Muscle Status: No deficits noted Assessment of Fat Status Date Assessed: 08/21/24 Fat Status: No deficits noted Basic Information: Admitting diagnosis: Acute ischemic stroke (HCC) [I63.9] Clinical course: Patient Chaitanya Tena ( 1945) is a 78 year old male with medical history of prior ischemic stroke with no residul deficits, HTN, DM II, Lung Malignancy? (last treatment was 2 years ago) per daughter presenting as Life Flight code stroke for left sided weakness. Patient's LKW was 11:40 AM today when patient was getting ready to ride his bike with daughter. Around 11:45 AM today, patient started having left face drooling and becoming dysarthric, left sided upper and lower extremity weakness. Medications: aspirin, 81 mg, Nasogastric, Daily atorvastatin, 80 mg, Oral, Daily clopidogrel, 75 mg, Nasogastric, Daily Docusate Sodium, 100 mg, Per G Tube, q12h famotidine, 20 mg, Intravenous, q12h BRAD heparin, 5,000 Units, Subcutaneous, q8h insulin NPH-insulin regular, 4 Units, Subcutaneous, q6h losartan, 25 mg, Oral, Daily polyethylene glycol (PEG) 3350, 17 g, Per G Tube, q12h sennosides, 1 tablet, Oral, Nightly sodium chloride, 10 mL, Intravenous, q12h BRAD sodium chloride, 10 mL, Intravenous, q12h BRAD Enteral Free water Flush, peptamen AF, , Last Rate: 20 mL/hr at 08/20/24 0647 PRN medications: calcium gluconate, dextrose, dextrose, glucagon, insulin lispro, LORazepam, magnesium sulfate, potassium & sodium phosphates OR potassium & sodium phosphates, [DISCONTINUED] potassium chloride OR [DISCONTINUED] potassium chloride OR potassium chloride OR Potassium chloride, [COMPLETED] Insert peripheral IV AND [COMPLETED] Saline lock IV AND sodium chloride, sodium chloride, sodium chloride, sodium chloride, sodium phosphates 45 mmol in sodium chloride 0.9 % 100 mL IVPB Labs: Pertinent Labs : Lab Results Component Value Date POC A Na 129 (L) 08/20/2024 Sodium Lvl 137 08/21/2024 POC A K 4.1 08/20/2024 Potassium Lvl 3.8 08/21/2024 POC Chloride 95 08/20/2024 Chloride Lvl 100 08/21/2024 CO2 Lvl 31.6 (H) 08/21/2024 BUN 14 08/21/2024 Creatinine Lvl 0.96 08/21/2024 POC A Glu 221 (H) 08/20/2024 Glucose Lvl 283 (H) 08/21/2024 POC Glu 264 (H) 08/21/2024 Lab Results Component Value Date Hgb A1C 9.40 (H) 08/19/2024 Review / Management: I/O 24 HRS: Intake/Output Summary (Last 24 hours) at 08/21/2024 1119 Last data filed at 08/21/2024 0400 Gross per 24 hour Intake -- Output 1100 ml Net -1100 ml Monitoring and Evaluation: MONITORING AND EVALUATION: Weight changes, Muscle wasting, Fat wasting, Skin, Digestive/abdominal assessment, Nutrition Intake : EN intake and tolerance, and Labs: GOAL: >75% of estimated needs met: Carlitos Hay RDN, LD, CNSC Mon-Wed Pager#: [phone] Weekend/oracle database consultant pager: [phone] GER WIRELESS [facility] 2024-08-20 06:33:55 Associated Order(s): IP CONSULT TO CASE MANAGEMENT Reason For Consult Routine CM will assess and address discharge planning needs. Charanjit Rubio RN, BSN, [facility] automation test developer - Neuro Service Line [facility] Case Management Music Sound Light Technician [facility] 2024-08-19 16:35:50 Neurocritical Care Consultation Note History Of Present Illness Betty Alba, 89 y.o. male with PMH of CVA without deficits, HTN, DM, possible lung cancer, who presented 08/19/2024 presented with TAPE SEWER. LKW 11:40AM, right before he went to ride a bike with his daughter. 11:45AM he noted to have L sided weakness with left facial drooling. In ED, he was hypertensive, CTA revealed R M1 occlusion. He received TNK at 13:45 and was taken for thrombectomy. He was TICI 2b after one pass. Presented to NSICU intubated, hypertensive, requiring nicardipine drip. He was reversed with sugammadex. Started to move R side spontaneously antigravity, initially not following commands and anisacoria with L 4mm and R 2mm. Exam changed to following commands and pupil size L 3mm and R 2mm, reactive. Interval Events: 08/19: admitted to NSICU. Past Medical History has a past medical history of Hypertension, Lung cancer (HCC), and Stroke (HCC). Surgical History has no past surgical history on file. Family History No family history on file. Social History Allergies Patient has no allergy information on record. Home Medications Medications Prior to Admission Medication Sig Dispense Refill Last Dose/Taking aspirin EC 81 MG EC tablet Take 81 mg by mouth 1 time each day. metFORMIN, OSM, (Fortamet) 500 MG 24 hr tablet Take 500 mg by mouth in the evening. Take with meals.. Do not crush, chew, or split. Review of Systems Unable to evaluate given clinical examination Physical Exam pre-admit mRS: Score 0: No symptoms at all. NIH STROKE SCALE SCORE ON ADMISSION 1 1a. 1a. LOC Level of Consciousness; 0-Alert 1-Drowsy 2-Stupor 3-Coma 1b. LOC Questions Month and age; 0-both 1-One 2-Neither 1c. LOC Commands Open/close eyes, Hair Dresser/release non-paretic hand; 0-Both 1-One 2-Neither 1 2. Best Gaze; 0-Normal 1-Partial 2-Forced gaze 2 3. Visual Ferro; 0-No visual loss. 1-Partial hemianopia 2-Complete 3-Bilateral 1 4. Facial Palsy; 0-None 1-Minor 2-Partial 3-Complete 1 5. Motor - R arm; 0-No drift 1-Drift 2-Some antigravity 3-No antigravity 4-No movement 2 6. Motor - R leg; 0-No drift 1-Drift 2-Some antigravity 3-No antigravity 4-No movement 4 7. Motor - L arm; 0-No drift 1-Drift 2-Some antigravity 3-No antigravity 4-No movement 3 8. Motor - L leg; 0-No drift 1-Drift 2-Some antigravity 3-No antigravity 4-No movement 9. Limb Ataxia; 0-Absent 1-1limb 2-2 limbsScore 1: No significant disability despite symptoms; able to carry out all usual duties and activities 10. Sensory; 0-Normal 1-Partial loss 2-Dense loss 11. Best Language; 0-Normal 1-Mild/mod 2-Severe 3-Mute 12. Dysarthria; 0-Normal 1-Mild/mod 2-Severe X-Untestable 13. Extinction and Inattention (formerly Neglect); 0-none 1-Partial 2-complete 15 TOTAL SCORE ACUTE STROKE BENCHMARKS: TIME OF STROKE TEAM ACTIVATION TIME OF STROKE TEAM EVALUATION TIME PT LAST SEEN NORMAL TIME HEAD CT REVIEWED (if TNK given) IV TNKase DECISION TIME IV TNKase ADMINISTRATION TIME (time and dose) IF NOT A CANDIDATE FOR IV TNKase, WHY? 13:45 TIME IR PHYSICIAN NOTIFIED IF NOT IAT CANDIDATE, WHY? TICI 2b DELAYS IN THIS PROCESS Further clinical exam documented under Impression and Plan by systems. ========= ASSESSMENT AND PLAN Betty Alba, 89 y.o. male HTN, DM, possible lung cancer, CVA without deficits, who presented on 08/19 with TAPE SEWER, found to have R M1. 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 Minimal withdrawal in the LUE and withdraws LLE. Sensory: grimaces to painful stimuli on the right, not the left. CTH revealed encephalomalacia in the L parietal lobe, ASPECT 10 on the right. CTA H/N revealed R M1 occlusion. s/p TNK at 13:45 s/p IAT with TICI score: 2b with 1 pass(es) UDS ordered, EtOH ordered Stroke Etiology: likely ICAD MRI brain wo ordered Stroke work-up ordered (LDL, A1c, trop, EKG, TTE) Recommend DAPT of aspirin 81mg and Plavix 75mg daily for 21 day, then monotherapy of aspirin 81mg daily thereafter. ; LDL goal <70. Start atorvastatin 80mg at bedtime. Sedation of precedex for RASS goal 0 to -1 (fentanyl drip for CTH, then dc) PT/OT/AUTOCAD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 as indicated ========= CARDIOVASCULAR Essential hypertension (I10) on admission, Hypertension with emergency (I16.1) on admission CV Exam: RRR Temp: [37 ?C (98.6 ?F)] 37 ?C (98.6 ?F) Heart Rate: [81-101] 84 Resp: [16-24] 20 BP: (136-156)/(63-94) 136/82 FiO2 (%): [70 %-100 %] 100 % SBP 90 - 140 PRN hydralazine, labetalol Nicardipine drip Trop ordered EKG normal sinus rhythm, Qtc 462 TTE ordered L radial a-line (08/19) CVC indication: none ========= PULMONARY Acute resp failure with hypoxia (J96.01) on admission H/o Possible lung mass Pulm Exam: CTAB ABG FiO2 (%): [70 %-100 %] 100 % S RR: [16] 16 S VT: [500 mL] 500 mL PEEP/CPAP (cm H2O): [6 cm H2O] 6 cm H2O MAP (cm H2O): [7.2-12] 7.2 intubated on admit Vent Settings: FiO2 (%): [70 %-100 %] 100 % S RR: [16] 16 S VT: [500 mL] 500 mL PEEP/CPAP (cm H2O): [6 cm H2O] 6 cm H2O MAP (cm H2O): [7.2-12] 10 CXR ordered VAP bundle ========= GASTROINTESTINAL Dysphagia unspecified (R13.1) on admission GI Exam: soft, non-distended, present bowl sounds Nutrition: Current Order: NPO Diet GI route: NGT/Cortrak GI ppx: Pepcid q12h/BID bowel regimen: docusate, senna, miralax q12h last BM YARN DUMPER No results found for: "ALT", "AST", "GGT", "ALKPHOS", "BILITOT" ========= RENAL Intake/Output Summary (Last 24 hours) at 08/19/2024 1636 Last data filed at 08/19/2024 1600 Gross per 24 hour Intake 800 ml Output -- Net 800 ml Results from last 7 days Lab Units 08/19/24 1329 SODIUM mEq/L 135* POTASSIUM mEq/L 3.8 CHLORIDE mEq/L 96* CO2 mEq/L 28.5 BUN mg/dL 19 CREATININE mg/dL 1.06 LA ordered ICU electrolyte replacement protocol NS 50 ml/hr while NPO no zamudio ========= INFECTIOUS DISEASE Leukocytosis, likely reactive, will trend Temp (24hrs), Av ?C (98.6 ?F), Min:37 ?C (98.6 ?F), Max:37 ?C (98.6 ?F) Results from last 7 days Lab Units 08/19/24 1329 WBC 10*3/uL 12.92 UA ordered COVID ordered Monitor trend fever curve and WBC no ABX indicated ========= HEMATOLOGIC Results from last 7 days Lab Units 08/19/24 1329 HEMOGLOBIN g/dL 12.7 PLATELETS 10*3/uL 518 INR 0.95 PTT Seconds 37.6* s/p TNK at 13:45 hold antiplt/anticoag 24hr post-TNK ASA/Plavix after 24 hours s/p TNK DVT ppx: SCDs; hold sc heparin for 24 hours s/p TNK ========= ENDOCRINE 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 There is a high probability of imminent or life threatening deterioration in the patient's condition during this evaluation. This is the total time spent evaluating the patient, speaking with medical staff and family, interpreting studies, discussing the case with consultants and admitting teams, retrieving data and reviewing charts, documenting the visit, and performing bundled procedures required during patient management. Minutes Critical Care Time Day MD Day MOLLY - ( ) Day Total Night MD Night MOLLY - ( ) Night Total TOTAL of Critical Care Time spent [facility] Neurocritical Care ICU [facility] Team ICU Ph #[id number] Cosigned by Ana Caruso MD at 08/20/2024 8:43 AM MANAGER WIRELESS GER WIRELESS GER WIRELESS Neurocritical Care [facility] History and Physical Notes Date/Time Note Provider Source 2024-09-05 19:45:12 Physical Medicine & Rehabilitation History & Physical Reason for Admission: 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) [I63.311] Date of Admission: 09/05/2024 5:36 PM Attending Provider: Edward Norton MD Admitting Attending: Holden Karimi MD Transferring facility: [facility] Date of Onset (1st Acute Hospital Admission): 08/19/24 History of Present Illness: Chaitanya Tena is a 78 y.o. male with hx of prior ischemic stroke w/ no residual deficits, HTN, DM2, lung cancer (last treatment 2021) who presented to [facility] on 08/19 w/ left sided weakness and neglect, found to have R MCA stroke s/p TNK and endovascular thrombectomy on 08/19 with subsequent improvement in strength and mentation. Mild hemorrhagic conversion. Acute care course c/b CAP s/p completion of abx on 08/28/24 Patient seen at bedside today. Upon arrival, MECHANICAL PENCILS ASSEMBLER helping patient back into bed, states he was found with his legs hanging off the bed, trying to stand up to get a coffee. Telesitter initiated for safety. He is oriented to self and location. He is not oriented to year or reason for his admission. Moderately dysarthric. He can follow simple commands. With cueing, he states he remember being told he had a stroke and that he had left sided weakness. He feels a little bit stronger now. He denies any numbness. He denies having any pain. He states he is sleeping okay. He does not recall his last BM, either yesterday or the day before. He denies headache, fevers, chills. Unable to obtain full HPI/ ROS due to cognitive / communication deficits. Past Medical History He has a past medical history of Diabetes mellitus (HCC), Hypertension, Lung cancer (HCC), and Stroke (HCC). Surgical History He has a past surgical history that includes US transcranial doppler (TCD) emboli detection without injection (08/20/2024). Social History He reports that he quit smoking about 30 years ago. His smoking use included cigarettes. He has never used smokeless tobacco. No history on file for alcohol use and drug use. States he lives with his daughter, Orlin. Unable to obtain full social history due to cognitive communication deficits. Functional History: Unable to obtain due to cognitive deficits. States he previously required assistance for his ADLs Current Function Pending PT, OT, and AUTOCAD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 evaluations Allergies Patient has no known allergies. Medications Medications Prior to Admission Medication Sig Dispense Refill Last Dose/Taking amLODIPine (Norvasc) 10 MG tablet Take 1 tablet by mouth 1 time each day. aspirin 81 MG chewable tablet 4 tablets by Nasogastric route 1 time each day. atorvastatin (Lipitor) 80 MG tablet Take 1 tablet by mouth 1 time each day. [START ON 09/06/2024] caffeine 200 MG Take 0.5 tablets by mouth 1 time each day. clopidogrel (Plavix) 75 MG tablet Take 1 tablet by mouth 1 time each day. insulin glargine (Lantus) 100 UNIT/ML injection Inject 30 Units under the skin in the evening. losartan (Cozaar) 25 MG tablet Take 3 tablets by mouth 1 time each day. melatonin 3 MG tablet 1 tablet by Per G Tube route at bedtime. mirtazapine (Remeron) 7.5 MG tablet Take 1 tablet by mouth at bedtime. modafinil (Provigil) 100 MG tablet Take 1 tablet by mouth 1 time each day. polyethylene glycol, PEG, 3350 (Miralax) 17 g packet 17 g by Per G Tube route in the morning and 17 g in the evening. Do all this for 3 days. Relevant Results and Imaging: Labs BMP: Results from last 7 days Lab Units 09/05/24 0239 CREATININE mg/dL 1.08 BUN mg/dL 27* SODIUM mEq/L 142 POTASSIUM mEq/L 4.1 CHLORIDE mEq/L 105 CO2 mEq/L 28.4 CBC: Results from last 7 days Lab Units 09/05/24 0415 WBC 10*3/uL 10.36* HEMOGLOBIN g/dL 12.0* HEMATOCRIT % 38.6 MCV fL 90.4 PLATELETS 10*3/uL 369 UA: Results from last 7 days Lab Units 08/31/24 0044 UA COLOR Yellow UA GLUCOSE mg/dL Negative UA PROTEIN mg/dL Negative UA KETONES mg/dL Negative UA NITRITE Negative WBC UA /HPF 1 SQUAMOUS EPITHELIAL CELLS /LPF None Seen Prior Imaging: CT Brain 08/31/24 IMPRESSION: 1. No interval adverse change. 2. Evolving recent right MCA territory infarct with interval cortical isodensity which favors laminar necrosis. Cortical petechial hemorrhage would be in the differential. No significant mass effect. MRI Brain 08/20/24: IMPRESSION: * Acute/subacute ischemic infarct in the territory of the right MCA, with evidence of petechial hemorrhagic transformation. * Remote infarct in the left parietal lobe. * Moderate chronic microvascular ischemic changes and brain volume loss. CT Head and Neck 08/19/24: IMPRESSION: * Occlusion of the distal M1 segment of the right middle cerebral artery, extending to the posterior trunk. A few branches of the anterior trunk are patent. * Multifocal narrowing of the intracranial circulation, including the left MCA and both TURBO GENERATOR OILER branches.. * Atherosclerotic changes at the carotid bifurcations, carotid siphons, origin of the left vertebral artery, and V4 segment of the left vertebral artery. Last Recorded Vitals Blood pressure (!) 127/58, pulse 93, temperature 36.8 ?C (98.3 ?F), temperature source Axillary, resp. rate 16, height 1.702 m (5' 7"), weight 81.3 kg (179 lb 3.7 oz). Physical Exam: General: No acute distress. Well-nourished. HEENT: NC/AT. MMM. No scleral icterus. Cardiovascular: No pallor. No cyanosis. RRR Pulmonary: Respirations nonlabored on 2L NC. No cough. GI: Abdomen soft, nondistended, nontender to palpation Skin: No visualized wounds MSK: No peripheral edema. No gross joint deformities. Neurologic: - Mental status: Alert and oriented x2, to self and city. Not oriented to year or situation - Speech: Normal comprehension, repetition, and naming. Moderate dysarthria. Some tangential answers - organ installer: Anisocoria: R pupil 1mm, left pupil 2mm. Reactive to light bilaterally - Reflexes: 3+ left patellar, 2+ right patellar - Sensation: normal sensation to light touch to all 4 extremities - Tone: normal tone, no ankle clonus - Strength: at least antigravity in all 4 extremities. Specific muscle testing limited by cognitive deficits Psychiatric: Calm and cooperative. No restlessness, anxiety, or agitation noted. Affect is normal Individualized Plan of Care I have reviewed the preadmission rehabilitation screening. There have been no relevant changes since the preadmission screening. Patient will require oversight by a rehabilitation physician and 24 hour rehabilitation nursing for management of bowel, bladder, skin integrity, medication management, safety measures, and preventing risk factors and complications. Patient will require a minimum of 3 hours of therapy a day for 5-7 days a week throughout the hospitalization, including at least the followin-2 hours Physical Therapy, 1-2 hours Occupational Therapy and 1 hour Speech-Language pathology, Neuropsychology, Exercise and Multidisciplinary Groups. These disciplines will be needed in order to improve the patient's impairments in mobility, transfers, activities of daily living, swallowing and cognition and evaluation of durable medical equipment if needed at discharge. Social Work and Case Management will be consulted to assist with discharge planning and family coping strategies. Prognosis: fair Estimated Length of Stay: 2-3 weeks Discharge Disposition: Home with family support or SNF Impairments: Cognitive deficits Debility Apraxia Dysphagia Dysarthria Gait abnormality Impaired mobility Activity limitations: Decreased mobility Decreased transfers Decreased ADLs Participation restrictions: Driving Return to work/school Taking care of the home Recreation and leisure activities Anabaptism activities Community reintegration Assessment and Plan: Chaitanya Tena is a 78 y.o. male with hx of prior ischemic stroke w/ no residual deficits, HTN, DM2, lung cancer (last treatment 2021) who presented to [facility] on 08/19/24 w/ left sided weakness and neglect, found to have R MCA stroke s/p TNK and endovascular thrombectomy on 08/19 with subsequent improvement in strength and mentation. Mild hemorrhagic conversion. Acute care course c/b CAP s/p completion of abx on 08/28/24. The patient is noted to have significant new functional deficits as a result of this injury, and is therefore now admitted to acute inpatient rehabilitation # Stroke -Patient with R MCA stroke on 08/19/24, likely 2/2 ICAD vs ESUS (in setting of lung cancer hx) s/p TNK and EVT TICI 2b - MRI Brain 08/20/24 w/ acute/subacute ischemic infarct in territory of right MCA, w/ evidence of petechial hemorrhagic transformation. Remote infarct in left parietal lobe. -HbA1c 9.4, LDL 86 -Started on DAPT with ASA and plavix on 08/20, continue for 90 days - Continue atorvastatin -We will monitor the patient s neurologic status closely -PT/OT/AUTOCAD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 consults -Internal Medicine consulted for co-management #Cognitive deficits -Patient with significant cognitive deficits due to ischemic stroke, though obtaining more collateral from the patient's family will be necessary to determine his prior baseline. - Continue modafinil 100mg daily -AUTOCAD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 to evaluate and treat cognitive deficits. Neuropsychology will follow and perform testing if/when appropriate -Once current cognitive baseline is established, may benefit from further pharmacologic intervention to improve initiation and/or attention #Dysarthria #Impaired functional communication -AUTOCAD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 to evaluate and initiate compensation strategies -Evaluate for tech based assistive devices #Hemiparesis -Patient with left hemiparesis due to ischemic stroke -This is a significant functional limitation -Start aggressive therapies with PT and OT to strengthen and optimize function #Pain: - Patient denies any pain at this time - Ongoing monitoring. - Tylenol PRN available #Adjustment to disability -Neuropsychology consultation #Impaired sleep-wake cycle #Insomnia - Continue nightly melatonin and mirtazapine - Continue modafinil 100mg daily #Risk of constipation -Admit KUB ordered on admission, pending -Monitor bowels, avoid greater than 3 days w/o bowel movement - continue miralax 1pkt q12h, senna 1 tab daily, and docusate 100mg BID started in acute care, re-eval need based on KUB and BM pattern - Will have suppository available PRN. #Risk of Urinary retention - Bladder scan q4H x3 while awake. - If patient is voiding spontaneously, please check PVR after each void and straight cath if greater than 250 mL. - If patient is not voiding on their own, bladder scan every 4 hours and straight cath if greater than 400 mL #Dysphagia #Nutrition -Patient currently on Adult Diet Dysphagia; 0 - Thin Liquids; 4 - Pureed (Dysphagia Pureed); No concentrated sweets; 1:1 Feeding -AUTOCAD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 consulted for evaluation of swallow - Ensure TID w/ meals -Railroad Maintenance Clerk consulted #Skin: Monitor skin. Turn patient q2h Elevate Heels Consult nutrition to ensure patient is getting adequate protein and nutrition Medical Comorbidities: Internal Medicine consulted for co-management #HTN - continue amlodipine 10mg daily, losartan 75mg daily, SBP goal <160 mmHg #DM2 - A1c 9.4 on 08/19/24, continue lantus 30u qPM, lispro 8u TIDAC + SSI #PAD - Doppler US 08/21 w/ Bl complete occlusion of SFA, vascular surgery was consulted who recommended outpatient f/u with Dr. Barajas #Prophylaxis - DVT ppx: continue Heparin 5000u q8h, consider changing to daily lovenox based on AM Creatinine Follow-up: [place] Stroke clinic in 2-4 weeks PCP PM&R Vascular surgery (Dr. Barajas) for Bl SFA complete occlusion noted in acute care Patient will be staffed in AM with Dr. Trev Simpson MD Resident Physician [facility] Physical Medicine and Rehabilitation Cosigned by Holden Karimi MD at 09/06/2024 10:45 AM MANAGER WIRELESS GER WIRELESS GER WIRELESS Associated attestation - Holden Karimi MD - 09/06/2024 10:45 AM MANAGER WIRELESS Patient seen and examined and Dr. Simpson's note reviewed. Agree with documentation. In addition: -hypoxemic overnight; will d/w IM -had distal LLE DVT several weeks ago? Will re-check Dopplers -consider re-image head given some hemorrhagic conversion and DAPT plus heparin Physical Medicine and Rehabilitation Physician Antonietta Carvalho 2024-08-19 14:31:51 Chief Complaint Patient presents with Extremity Weakness Stroke Unable to speak Patient Chaitanya Tena ( 1945) is a 78 year old male with medical history of prior ischemic stroke with no residul deficits, HTN, DM II, Lung Malignancy? (last treatment was 2 years ago) per daughter presenting as Life Flight code stroke for left sided weakness. Patient's LKW was 11:40 AM today when patient was getting ready to ride his bike with daughter. Around 11:45 AM today, patient started having left face drooling and becoming dysarthric, left sided upper and lower extremity weakness. In ED, no hemorrhage was seen, CTA showed Right M1 Occlusion. Patient received 22.5mg of TNK at 1:45 PM and taken for Thrombectomy. Baseline mRS is 0 - fully functional and independent. Daughter number: [phone] Extremity Weakness Stroke Aphasia Review of Systems Musculoskeletal: Positive for extremity weakness. Past Medical History: Diagnosis Date Hypertension Lung cancer (HCC) Stroke (HCC) History reviewed. No pertinent surgical history. No family history on file. Social History Socioeconomic History Marital status: Spouse name: Not on file Number of children: Not on file Years of education: Not on file Highest education level: Not on file Occupational History Not on file Tobacco Use Smoking status: Not on file Smokeless tobacco: Not on file Substance and Sexual Activity Alcohol use: Not on file Drug use: Not on file Sexual activity: Not on file Other Topics Concern Not on file Social History Narrative Not on file Social Drivers of Health Financial Resource Strain: Not on file Food Insecurity: Not on file Transportation Needs: Not on file Physical Activity: Not on file Stress: Not on file Social Connections: Not on file Intimate Partner Violence: Not on file Housing Stability: Not on file (Not in a hospital admission) No current facility-administered medications on file prior to encounter. Current Outpatient Medications on File Prior to Encounter Medication Sig aspirin EC 81 MG EC tablet Take 81 mg by mouth 1 time each day. metFORMIN, OSM, (Fortamet) 500 MG 24 hr tablet Take 500 mg by mouth in the evening. Take with meals.. Do not crush, chew, or split. Objective: Vitals: 08/19/24 1344 08/19/24 1353 08/19/24 1357 08/19/24 1408 BP: (!) 149/94 146/63 156/68 143/68 Pulse: 90 96 87 101 Resp: SpO2: 98% 94% 93% 92% Physical Exam: General: well nourished HEENT: NCAT, anicteric sclera, posterior pharynx clear, mucus membranes moist CV: regular rate, intact peripheral pulses Pulm: breathing comfortably, no wheezing, symmetric chest expansion Abd: soft, non-tender, non-distended Ext: skin clear, no rashes, no edema Neuro Exam: A&Ox1, severely dysarthric so difficult to understand knowledge and memory Language: intact fluency, comprehension, naming, and repetition Speech: severely dysarthria CN: PERRL, 3 mm BL, Right gaze preference, no nystagmus, Left Eye Hemianopia, Left Facial Asymmetry, facial sensation intact; auditory acuity intact; tongue midline, palate elevates symmetrically Motor: Normal tone and bulk, no abnormal movements. AG throughout - LUE and LLU Drift to [place], normal tone, full ROM I Sensory: Intact to light touch equally on both sides Coordination: unable to do dysmetria on FTN or HTS bilaterally MRS: 0- Completely asymptomatic and independent NIHSS: 1- Somnolent, needs minor stimulation. 2- No correct answer 1- Follows one command. 2=forced deviation, or total gaze paresis not overcome by oculocephalic maneuver 2=Partial paralysis (total or near total paralysis of the lower face) 2=Complete hemianopia 2- Some effort against gravity. 0- No drift. 2- Some effort against gravity. 0- No drift. 0- None 0- Normal. 0=No aphasia, normal 2=Severe; patient speech is so slurred as to be unintelligible in the absence of or our of proportion to any dysphagia, or is mute/anarthric 1- Tactile, visual, spatial, auditory or personal inattention. Total: 17 Data: Imaging: CT head: no hemorrhage CTA head/Neck: Right M1 Occlusion MRI brain: TTE: Assessment & Plan Acute ischemic stroke (HCC) Patient Chaitanya Tena ( 1945) is a 78 year old male with medical history of prior ischemic stroke with no residul deficits, HTN, DM II, Lung Malignancy? (last treatment was 2 years ago) per daughter presenting as [employer] code stroke for left sided weakness. Patient's LKW was 11:40 AM. Around 11:45 AM today, patient started having left face drooling and becoming dysarthric, left sided upper and lower extremity weakness. In ED, no hemorrhage was seen, CTA showed Right M1 Occlusion. Patient received 22.5mg of TNK at 1:45 PM and taken for Thrombectomy. Baseline mRS is 0 - fully functional and independent. Daughter number: [phone] JUMBO OPERATOR: Ischemic Stroke Acuity: Acute Suspected Etiology: - Admit to Neuro ICU. - Start Atorvastatin - Hold Aspirin until 24 hour post tPA neuroimaging is stable and without evidence of bleeding - Blood pressure control per Neuro-Endovascular Team - Order MRI brain when stable - TTE - A1c, lipid panel - PT/OT/ST - 24hr NIHSS - 08/20/2024 at 1:45 PM Dysarthria/Dysphagia following cerebral infarction: - NPO until cleared by swallow eval. - ST CV: Essential hypertension - Blood pressure control per Neuro-Endovascular Team - Titrate oral agents - Cardene Hyperlipidemia, unspecified - Statin for goal LDL < 70. ENDO: Type 2 DM with episodes of hyperglycemia - Resume home insulin - SSI for goal FSBG 140-180 - Diabetes education - Diabetic diet Prophylaxis DVT: SCDs GI: N/A Bowel regimen: senna Diet: NPO Code Status: Full Code Dispo: pending Acute Stroke Benchmarks: Time Patient was Last Seen Normal 1140 Arrival Time 1310 Stroke Team Evaluation 1312 Direct to Scanner? Yes CT Head Read Time 1331 TNK/tPA in CT Scanner NO If not a candidate for IV tPA, why? Patient Received TNK at 1:45 PM Patient Received TNK at 1:45 PM Delays in this process: None Patient/Physician refusal Interruption in team communication Unable to determine eligibility BP Control- issues confirming accurate BP Medical Instability Additional imaging requested other than CTH/CTA/CTP Delays in TNK/tPA prep or administration Delay in Code Stroke Notification IV or Equipment delay Other: Roger Jones MD Neurology PGY-2 [facility] This is a 78 y.o. Male with a pmhx of HTN, DM, a prior infarct in 2019 without residual deficits, and lung cancer (now in remission) who presents via LF with sudden onset LFD, TAPE SEWER, and confusion. Per the patient's daughter, he is independent at baseline mRS 0. Today, he was preparing to go bike riding when family noticed that he was drooling from the left side of his mouth and had increased left sided weakness. On arrival, SBP 180's and gluc wnl. NIHSS 17 for partial R MCA syndrome. CT Brain showed L parietal encephalomalacia from prior infarct and minimal early ischemic changes in the R MCA territory. CTA head and neck showed a R M1 occlusion in addition to high grade stenosis of the proximal R ICA and diffuse ICAD. Patient received 22.5mg of TNK at 1:45 PM and taken for Thrombectomy with TICI 2b. Admitted to the NSICU for further management and evaluation. - Hold AP/DVT ppx until 24hr post TNK repeat CT Brain - start high intensity statin - SBP goal 90-140 - stroke workup (A1c, LDL, TTE, and cardiac telemetry) - MRI Brain w/o - PT/OT/SLT eval Tenecteplase risk / benefits attestation: We have assessed the patient to meet clinical criteria for acute ischemic stroke (AIS) and treatment with intravenous thrombolysis. Additionally, we have informed the patient or patient s legal disability representative (if any) of the nature of patient s diagnosis, and medically indicated, evidence-based treatment options including the immediate use of the intravenous thrombolytic tenecteplase (TNK) for the non-FDA approved indication of AIS treatment. The [place] [employer] Association/[place] Stroke Association AIS guidelines recognize TNK as a non-inferior alternative to the FDA-approved use of alteplase for AIS treatment. Given the ease of lytic administration as a one-time bolus without infusion with evidence of better fibrin-specificity, we are administering a non-inferior AIS lytic medication as an alternative to alteplase. I have also informed the patient or patient s legal disability representative of the risks of TNK use known to date, which are similar to alteplase, the most serious of which are intracerebral or systemic bleeding. I have also discussed alternatives to treatment with TNK with the patient or patient s legal disability representative. I have informed the patient or patient s legal disability representative (if any) of the aforementioned and answered all questions, unless the emergent nature of patient s clinical condition prevented me from doing so. I attest that the emergency use of TNK is evidence-based with benefits outweighing the risks in utilizing TNK to treat AIS in this patient. IAT Template Last Seen Well Time (LSN): Time to be given by patient or family. Time the stroke was witnessed 1140 TNK Bolus Time: 1345 Team at Bedside Time: 1312 IA Notification Time: First time Stroke Team called Endo Physician 1346 CLOT Pager Notification Time: Time Endo agreed to proceed 1404 What cerebral artery is occluded? []Anterior cerebral artery (TIM) []A1 TIM []Anterior communicating artery []Internal carotid artery (ICA) []ICA terminus (T-lesion; T occlusion) []Middle cerebral artery (MCA) [x]M1 MCA []M2 MCA []M3/M4 MCA []Vertebral artery (VA) []Basilar artery (BA) []Posterior cerebral artery (TURBO GENERATOR OILER) []Other cerebral artery branch/segment Groin Puncture Time: Recanalization Time: Number of Passes: TICI Score: []Grade 0 []Grade 1 []Grade 2a [x]Grade 2b []Grade 3 []ND Device used: []Trevo []Solitaire [x]Other: Aspiration Delays in Process: []Initial Patient/Family Refusal []Care team unable to determine eligibility []Management of concurrent emergent/acute condition such as cardiopulmonary arrest, respiratory failure (requiring intubation) []Additional proximal vascular procedure required prior to first pass (stent) [x]Other: ____Ongoing case at time of treatment required backup provider's assistance Hans Evans MD Vascular Neurology Fellow, PGY-5 Cosigned by Chaitanya Lewis MD at 08/20/2024 12:58 PM MANAGER WIRELESS GER WIRELESS GER WIRELESS GER WIRELESS Associated attestation - Chaitanya Lewis MD - 08/20/2024 12:58 PM MANAGER WIRELESS STROKE ATTENDING NOTE History: 78 yo man with HTN, DM, old left parietal infarct, on ASA, and sudden left side weakness. Given TNK 2hrs 5 min post onset, and then went for EVT with TICI 2b. Exam: Initial NIHSS 17 for severe left side weakness and neglect. Today he is antigravity in all 4 extremities though 4- strength on the left. Has right gaze preference and left side sensory and visual neglect Diagnostics: Initial CTA shows distal right M1 occlusion and 50% proximal right ICA origin stenosis. MRI shows extensive right MCA infarct sparing the IC. Impression: Right MCA infarct due to ICAD vs embolus from ICA vs heart, clinically improving post EVT. Good rehab candidate. Plan: CUS and TCD of right MCA for patency and embolus detection, 2Decho , monitor, DAP at 24 hrs post TNK. A total of 55 minutes were spent [id number] with the patient;over half of that time was spent on counseling and coordination of care. Chaitanya Lewis MD Neurology [facility] Procedure Notes Date/Time Note Provider Source 2024-08-29 09:00:00 Images from the original note were not included. [facility] [employer]OCAD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 MODIFIED BARIUM SWALLOW STUDY (MBSS) Patient Name: Chaitanya Tena Today's Date: 08/29/2024 Room: [facility]/5[facility] MBSS EVALUATION SUMMARY: Acute moderate-severe oropharyngeal dysphagia secondary to CVA. The primary impairment is swallowing efficiency which is exacerbated by cognitive deficits and reduced RAVI. Swallowing safety is relatively preserved. Given persistent dysphagia, anticipate patient will require longer term means of nutrition and hydration. Oral deficits were characterized by impaired bolus acceptance, bolus formation, oral transit, and posterior bolus loss. Significant delay in pharyngeal swallow initiation was demonstrated with extended pyriform sinus pooling prior to swallow initiation. Reduced pharyngeal sensation is suspected as patient had absent swallow initiation with thin liquid via teaspoon. Reduced tongue base retraction and epiglottic inversion resulted in vallecular residue after swallow initiation. RECOMMENDATIONS: Diet Recommendations: Non-oral feeding Medications: Non oral PO trials with AUTOCAD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 only Oral care: Suction toothbrush , Every 6 hours PROGNOSIS: Fair PLAN: Treatment/Interventions: Swallow function, Cognitive communication functioning, Communication functioning Frequency: 3-4 times per week GENERAL INFORMATION: Reason for Consult: Pt was referred for a MBSS evaluation in the setting of CVA Oxygenation: Room air Behavior: Restless Level of Consciousness: Lethargic Pain: Pain Assessment: 0-10 Pain Score: 0 Diet Prior to this Evaluation: Temporary Means of Alternative Nutrition & Hydration Preferred Language: Tanzanian VIDEO FLUOROSCOPIC EXAM: Video Fluoroscopic Exam Patient Position: In a chair Viewing Plane: Lateral Feeding Assistance: Clinician provided bolus trials Follow Directions/Commands Given: No Respiratory Status: Room air IMPAIRMENT PROFILE: Impairment Profile Lip Closure: Impaired Tongue Control During Bolus Hold: Impaired Bolus Preparation for Mastication: Unable to Determine/Assess Bolus Transport and Lingual Motion: Impaired Soft Palate Elevation: Within Functional Limits Tongue Base Retraction: Impaired Laryngeal Elevation: Within Functional Limits Anterior Hyoid Excursion: Within Functional Limits Epiglottic Movement: Impaired Laryngeal Vestibular Closure: Within Functional Limits Pharyngeal Stripping Wave: Within Functional Limits Pharyngoesophageal Segment Opening: Within Functional Limits Pharyngeal Contraction: Unable to Determine/Assess Esophageal Clearance: Unable to Determine/Assess MBSS BOLUS: Bolus 1: Clinical Measure 1 IDDSI Texture: 0- Thin Bolus Characteristics: Straw Bolus Hold: >50% Post loss Bolus Transport: Slowed, Disorganized Initiation of Pharyngeal Swallow: Pyriform sinus Penetration-Aspiration Scale: 1: Material does not enter airway Comments: Absent swallow with thin by spoon Bolus 2: Clinical Measure 2 IDDSI Texture: 2- Mildly thick Bolus Characteristics: Spoon Bolus Hold: >50% Post loss Bolus Transport: Slowed, Disorganized Initiation of Pharyngeal Swallow: Pyriform sinus Penetration-Aspiration Scale: 1: Material does not enter airway Bolus 3: Clinical Measure 3 IDDSI Texture: 4- Pureed Bolus Characteristics: Spoon Bolus Hold: >50% Post loss Bolus Transport: Slowed, Disorganized, Delay initiation Initiation of Pharyngeal Swallow: Pyriform sinus Penetration-Aspiration Scale: 1: Material does not enter airway AMOUNT OF RESIDUE AND LOCATION: Amount of Residue and Location (on the worst texture) Tongue Clearance: Residue Collection Present Tongue Base Clearance: Residue Collection Present Valleculae Clearance: Residue Collection Present Pharyngeal Wall Clearance: Trace Residue Aryepiglottic Folds Clearance: Trace Residue Pyriform Sinuses Clearance: Trace Residue OUTCOME MEASURES: International Dysphagia Diet Standardization Initiative - IDDSI Solids - N/A Liquids - N/A IDDSI Level - 0 FUNCTIONAL ORAL INTAKE SCALE (FOIS), MARGARITA ET AL., 2005: 2- Tube dependent with minimal attempts of food or liquid DYSPHAGIA OUTCOME AND SEVERITY SCALE (AMPARO), O'DEANNA ET AL., 1999: 2 = Moderately-severe dysphagia: Maximum assistance or use of strategies with partial PO only (tolerates at least one consistency safely with total use of strategies). May exhibit one or more of the following: Severe retention in pharynx, unable to clear, or needs multiple cues. GOALS: Encounter Goals Encounter Goals (Active) LTG - Attend in a structured environment (Progressing) Start: 08/23/24 Expected End: 09/06/24 LTG - Orientation to self, time, place, and situation (Progressing) Start: 08/23/24 Expected End: 09/06/24 STG - Complete a 5 minute simple attention task (Progressing) Start: 08/23/24 Expected End: 09/06/24 STG - Express orientation information (Progressing) Start: 08/23/24 Expected End: 09/06/24 LTG - Demonstrate intelligible speech at word level (Progressing) Start: 08/23/24 Expected End: 09/06/24 STG - Utilize speech intelligibility strategies (Progressing) Start: 08/23/24 Expected End: 09/06/24 LTG - Patient will improve on swallowing outcome measure (Progressing) Start: 08/20/24 Expected End: 09/03/24 STG - Improve airway protection (Progressing) Start: 08/20/24 Expected End: 09/03/24 STG - Improve mastication Start: 08/20/24 Expected End: 09/03/24 Encounter Goals (Resolved) Complete SLCE (Completed) Start: 08/20/24 Expected End: 09/03/24 Resolved: 08/23/24 EDUCATION: Education Documentation No documentation found. Education Comments No comments found. If this is the last documented treatment, then it will signify discharge from acute care prior to discharge from the therapy service and will serve as the discharge summary. Therapy discharge recommendations are made by determining the patient's prior level of function, assessing current function level and establishing rehab potential. The overall discharge plan may be affected by input from Physicians, Care Coordination, medical condition/status, family support and insurance benefits. Lupis Falcon CCC-AUTOCAD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 [facility] [place], [place] 2024-08-24 09:20:00 Images from the original note were not included. [facility] [employer]OCAD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 FIBEROPTIC ENDOSCOPIC EVALUATION OF SWALLOWING (FEES) Patient Name: Chaitanya Tena Today's Date: 08/24/2024 [facility] FEES EVALUATION SUMMARY: Severe oropharyngeal dysphagia secondary to CVA. Swallowing safety and efficiency are impaired. He is high risk for aspiration-related consequences given his cognitive deficits, reduced independence with ADLs, reduced mobility, and other medical issues (DM, previous lung malignancy, new RLL consolidation on CXR per EMR). RECOMMENDATIONS: Diet Recommendations: Non-oral feeding Medications: Non oral Oral care: Suction toothbrush , Every 6 hours AUTOCAD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 will follow for ongoing evaluation and treatment of cognition, motor speech, and dysphagia. Will reattempt FEES as appropriate. PROGNOSIS: Fair PLAN: Treatment/Interventions: (Ongoing evaluation of swallowing function, Cognitive/motor speech evaluation when RAVI appropriate) Frequency: 3-4 times per week GENERAL INFORMATION: Reason for Consult: Pt was referred for a FEES evaluation in the setting of CVA Behavior:Confused Level of Consciousness: Lethargic; Has eyelid apraxia per team, but not consistently responsive to questions/directions Pain: Pain Assessment: 0-10 Pain Score: 0 Diet Prior to this Evaluation: Temporary Means of Alternative Nutrition & Hydration and NPO Preferred Language: [place]anian FEES PROCEDURE: The Patient was educated re: the purpose of the test and the procedure. The Patient was given the chance to ask questions re: the procedure and provided verbal assent. The [facility] was utilized at this evaluation. Pt completed instrumental assessment of the swallow while seated upright in bed Time out was performed, and the flexible endoscope was passed through the naris, through the velopharyngeal port, and into the oropharynx where visualization of the hypopharynx was obtained. Laryngeal anatomy was remarkable for pooled secretions in pharynx/larynx. Patient was positioned upright in bed. He verbalized inconsistently to questions, appeared to be somewhat lethargic. Views of the larynx/pharynx prior to PO trials revealed pooled secretions in larynx/pharynx. Presentations of thin liquids, mildly-thick liquids, puree were given. In the oral phase patient demonstrated reduced bolus acceptance, prolonged/delayed initiation of oral transit, reduced bolus formation, and posterior bolus loss. Pyriform sinus pooling was demonstrated consistently with liquids. During the swallow laryngeal penetration was demonstrated with both liquid consistencies with residue in the laryngeal vestibule. Patient did not sense penetration and attempt to spontaneously clear. Did not consistently follow commands to use strategies to attempt clearance. With pureed consistently, bolus pooled in the valleculae for extended period without swallow initiation. Eventual and persistent verbal cues were successful at facilitating swallow initiation with residue remaining in the pyriform sinus and valleculae. EXAMINATION METHOD: Examination Method Time out protocol completed: Yes Respiratory Status: Room air Foreign Body Obstruction: NGT ANATOMICAL OVERVIEW Anatomical Overview Views of The Larynx and Vocal Folds Included: Entire laryngeal anatomy Secretions: 2-Standing secretions in laryngeal vestibule transently over the rating period, spill in during the observation period or cleared by the patient during the observation period Epiglottis: Within Functional Limits Valleculae: Within Functional Limits Arytenoids: Within Functional Limits Posterior Pharyngeal Wall: Within Functional Limits True Vocal Cords at Rest: Within Functional Limits FEES BOLUS: Bolus 1: Bolus 1 Texture: 0 Thin Method of Feeding: Spoon Oral Phase Observations: Anterior loss, Posterior loss, Reduced bolus acceptance, Reduced oral transit Swallow Initiated: Pyriform sinus [place]-Valleculae Residue: II- Trace 1-5% Trace Coating of The Mucosa [place]-Pyriform Sinus Residue: II- Trace 1-5% Trace Coating of The Mucosa Penetration-Aspiration Scale: 3: Material enters the airway, remains above the vocal folds, and is not ejected from the airway. Timing of Airway Invasion: During the swallow (inferred) Response to Airway Invasion: Absent response Bolus 2: Bolus 2 Texture: 2 Mildly Thick Method of Feeding: Spoon Oral Phase Observations: Posterior loss, Reduced bolus acceptance, Reduced oral transit Swallow Initiated: Valleculae Mariaa-Valleculae Residue: II- Trace 1-5% Trace Coating of The Mucosa [place]-Pyriform Sinus Residue: II- Trace 1-5% Trace Coating of The Mucosa Penetration-Aspiration Scale: 3: Material enters the airway, remains above the vocal folds, and is not ejected from the airway. Timing of Airway Invasion: During the swallow (inferred) Response to Airway Invasion: Absent response Bolus 3: Bolus 3 Texture: 4 Pureed Method of Feeding: Spoon Oral Phase Observations: Reduced bolus formation, Reduced bolus acceptance, Reduced oral transit Swallow Initiated: Valleculae Mariaa-Valleculae Residue: III-Mild 5-25% Epiglottic Ligament Visible Mariaa-Pyriform Sinus Residue: III- Mild 5-25% Up Wall to Quarter Full Penetration-Aspiration Scale: 1: Material does not enter airway Blous 3 Comments: Absent swallow initiation; verbal cues eventually effective to facilitate swallow initiation OUTCOME MEASURES: International Dysphagia Diet Standardization Initiative - IDDSI Solids - N/A Liquids - N/A IDDSI Level - 0 FUNCTIONAL ORAL INTAKE SCALE (FOIS), MARGARITA ET AL., 2005: 1- Nothing by mouth DYSPHAGIA OUTCOME AND SEVERITY SCALE (AMPARO), O'DEANNA ET AL., 1999: 1 = Severe dysphagia: NPO, unable to tolerate any PO safely. May exhibit one or more of of the following: -Severe retention in the pharynx, unable to clear. -Severe oral stage bolus loss or retention, unable to clear. -Silent aspiration with two or more consistencies, nonfunctional volitional cough. --Or unable to achieve swallow. GOALS: Encounter Goals Encounter Goals (Active) LTG - Attend in a structured environment Start: 08/23/24 Expected End: 09/06/24 LTG - Orientation to self, time, place, and situation Start: 08/23/24 Expected End: 09/06/24 STG - Complete a 5 minute simple attention task Start: 08/23/24 Expected End: 09/06/24 STG - Express orientation information Start: 08/23/24 Expected End: 09/06/24 LTG - Demonstrate intelligible speech at word level Start: 08/23/24 Expected End: 09/06/24 STG - Utilize speech intelligibility strategies Start: 08/23/24 Expected End: 09/06/24 LTG - Patient will improve on swallowing outcome measure (Progressing) Start: 08/20/24 Expected End: 09/03/24 STG - Improve airway protection Start: 08/20/24 Expected End: 09/03/24 STG - Improve mastication Start: 08/20/24 Expected End: 09/03/24 Encounter Goals (Resolved) Complete SLCE (Completed) Start: 08/20/24 Expected End: 09/03/24 Resolved: 08/23/24 EDUCATION: Education Documentation No documentation found. Education Comments No comments found. If this is the last documented treatment, then it will signify discharge from acute care prior to discharge from the therapy service and will serve as the discharge summary. Therapy discharge recommendations are made by determining the patient's prior level of function, assessing current function level and establishing rehab potential. The overall discharge plan may be affected by input from Physicians, Care Coordination, medical condition/status, family support and insurance benefits. Lupis Falcon CCC-[employer]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 Carvalho 2024-08-19 15:52:28 .BRIEF OPERATIVE NOTE 08/19/2024, 3:52 PM Betty Alba Attending Surgeon: Flora Chisholm M.D. Fellow(s): Armen Sarah M.D.; Pre-op diagnosis: Ischemic stroke Post-op diagnosis: Same as pre-op diagnosis Procedure: Diagnostic cerebral angiogram, mechanical thrombectomy Findings: R M1 occlusion s/p 1 aspiration pass; TICI 2b Surgical status: Emergent Anesthesia type: General endotracheal EBL: 50 mL Vascular access: Right radial artery Vascular closure: TR band Complications: None Condition: Stable Disposition: ICU GER WIRELESS Neurology Physician Antonietta Carvalho Notes Date/Time Note Provider Source Gopal Arias [facility]2025-01-15 20:32:34* Antonietta Carvalho 2024-09-27 20:32:34* Over the past 2 weeks, how often have you been bothered by any of the following problems? Question Answer Date of Assessment Author Patient Health Questionnaire-2 Score 0 09/27/2024 11:02 AM Eden Bradford RN * If you checked off any problems on this questionnaire so far, Question Answer Date of Assessment Author How difficult have these problems made it for you to do your work, take care of things at home, or get along with other people? Not difficult at all 09/27/2024 11:02 AM Nelly Bradford RN * Over the past 2 weeks, how often have you been bothered by any of the following problems? Question Answer Date of Assessment Author Little interest or pleasure in doing things Not at all 09/27/2024 11:02 AM Nelly Bradford RN Feeling down, depressed, or hopeless Not at all 09/27/2024 11:02 AM Nelly Bradford RN Trouble falling or staying asleep, or sleeping too much Several days 09/27/2024 11:02 AM Nelly Frye RN Feeling tired or having little energy Not at all 09/27/2024 11:02 AM Nelly Bradford RN Poor appetite or overeating Not at all 09/27/2024 11 :02 AM Nelly Bradford RN Feeling bad about yourself - or that you are a failure or have let yourself or your family down Not at all 09/27/2024 11:02 AM Nelly Bradford RN Trouble concentrating on things, such as reading the newspaper or watching television Not at all 09/27/2024 11:02 AM Nelly Bradford RN Moving or speaking so slowly that other people could have noticed? Or the opposite - being so fidgety or restless that you have been moving around a lot more than usual. Not at all 09/27/2024 11:02 AM Nelly Bradford RN Thoughts that you would be better off or hurting yourself in some way Not at all 09/27/2024 11:02 AM Nelly Bradford RN Patient Health Questionnaire-9 Score 1 09/27/2024 11:02 AM Nelly Bradford RN [id number] 20:32:34 [id number] 20:32:34 [id number] 20:32:34 [place] [id number] 12:44:04* Consultation (Routine) - Pending Review Specialty Diagnoses / Procedures Referred By Contact Referred To Contact Neuropsychology / Psychology Diagnoses Acute stroke due to thrombosis of right middle cerebral artery (HCC) Hemiparesis affecting left side as late effect of stroke (CMS/HCC) (HCC) Cognitive communication deficit Delirium Narciso Mcclain MD [address] [address] Phone: tel:[phone] fax:[phone] Deborah Li, PhD Referral ID Status Reason Start Date Expiration Date Visits Requested Visits Authorized [id number] Pending Review Specialty Services Required 09/26/2024 03/25/2025 1 1 GER WIRELESS* Consultation (Routine) - Pending Review Specialty Diagnoses / Procedures Referred By Contact Referred To Contact Physical Medicine and Rehabilitation Diagnoses Acute stroke due to thrombosis of right middle cerebral artery (HCC) Hemiparesis affecting left side as late effect of stroke (CMS/HCC) (HCC) Cognitive communication deficit Procedures HI OFFICE/OUTPATIENT NEW HIGH MDM 60 MINUTES Lizzie Gonzaels MD [address] [place] [address] Phone: tel:[phone] fax:[phone] [facility] [address] [place] [address] Phone: tel: fax: Referral ID Status Reason Start Date Expiration Date Visits Requested Visits Authorized [id number] Pending Review Specialty Services Required 09/25/2024 03/24/2025 1 1 GER WIRELESS* Consultation (Routine) - Pending Review Specialty Diagnoses / Procedures Referred By Contac t Referred To Contact Neurology Diagnoses Cerebrovascular accident (CVA) due to embolism of right middle cerebral artery (HCC) Acute ischemic stroke (HCC) Procedures HI OFFICE/OUTPATIENT NEW [facility] 60 MINUTES Bernadette Norton MD [address] [place] [address] [address] [place] [address] Phone: tel: fax: [place] [facility] [place] [facility] [place] [address] 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 [address] [place] [address] Phone: tel: fax: Referral ID Status Reason Start Date Expiration Date Visits Requested Visits Authorized [id number] Pending Review Specialty Services Required 11/06/[phone] [facility]gz2530-08-71 12:44:04* Auth/Cert (Routine) Specialty Diagnoses / Procedures Referred By Reid marroquin Referred To Contact Diagnoses Cerebral infarction, unspecified Procedures services to be reviewed [address] [place] [address] [address] ADMITTING [address] [place] [address] Phone: tel: Referral ID Status Reason Start Date Expiration Date Visits Re quested Visits Authorized [id number] 1 1 [facility] Center[facility]se[facility]ml2500-88-21 12:44:04* Over the past 2 weeks, how often have you been bothered by any of the following problems? Question Answer Date of Assessment Author Patient Health Questionnaire-2 Score 0 09/27/2024 11:02 AM Eden Bradford RN * Calculated C-SSRS Risk Score (Lifetime/Recent) Answer Date of Assessment Author No Risk Indicated 09/05/2024 6:29 PM Shabana Gupta, IRVIN * If you checked off any problems on this questionnaire so far, Question Answer Date of Assessment Author How difficult have these problems made it for you to do your work, take care of things at home, or get along with other people? Not difficult at all 09/27/2024 11:02 AM Nelly Bradford, IRVIN * Friendship Suicide Severity Rating Scale (Screener/Recent Self-Report) Question Answer Date of Assessment Author 1. Wish to be (Past 1 Month) No 024 6:29 PM Shabana Gupta RN 2. Non-Specific Active Suici cathryn Thoughts (Past 1 Month) No 09/05/2024 6:29 PM Elaine Gupta RN 6. Suicidal Behavior (Lifetime) No 6:29 PM Shabana Gupta RN * Over the past 2 weeks, how often have you been bothered by any of the following problems? Question Answer Date of Assessment Author Little interest or pleasure in doing things Not at all 09/27/2024 11:02 AM Nelly Bradford RN Feeling down, depressed, or hopeless Not at all 09/27/2024 11:02 AM Nelly Bradford RN Trouble falling or staying asleep, or sleeping too much Several days 09/27/2024 11:02 AM Nelly Frye RN Feeling tired or having little energy Not at all 09/27/2024 11:02 AM Nelly Bradford RN Poor appetite or overeating Not at all 09/27/2024 11 :02 AM Nelly Bradford RN Feeling bad about yourself - or that you are a failure or have let yourself or your family down Not at all 09/27/2024 11:02 AM Nelly Bradford RN Trouble concentrating on things, such as reading the newspaper or watching television Not at all 09/27/2024 11:02 AM Nelly Bradford RN Moving or speaking so slowly that other people could have noticed? Or the opposite - being so fidgety or restless that you have been moving around a lot more than usual. Not at all 09/27/2024 11:02 AM Nelly Bradford RN Thoughts that you would be better off or hurting yourself in some way Not at all 09/27/2024 11:02 AM Nelly Bradford RN Patient Health Questionnaire-9 Score 1 09/27/2024 11:02 AM MANAGER WIRELESS Nelly Alvarado RN [facility] [id number] 12:44:04* This document contains information received from the source organization and may not represent a complete record from that organization. * Restricted notes were excluded * Narciso Mcclain MD - 09/26/2024 4:45 PM MANAGER WIRELESS Physical Medicine & Rehabilitation Daily Progress Note Code status: Full Code Current diet: Adult Diet Dysphagia; 0 - Thin Liquids; 6 - Soft & Bite Sized (Dysphagia Advanced); No concentrated sweets; 1:1 Feeding Isolation: No active isolations Allergies: Patient has no known allergies. Subjective: No events report last night by nursing. Granddaughter at bedside this AM, reports poor arousal yesterday Reports feeling well, ate eggs this AM Discussed discharge planning for tomorrow Objective: Sleep hours logged Nighttime Sleep Hours: 8 hrs Last Bowel Movement: Last BM Date: 09/26/24 Stool Color: Brown Stool Appearance: Formed, Soft Stool Amount: Large Bowel Incontinence: No Bowel Elimination Assistance Level: Completely dependent Labs Lab Results Component Value Date WBC 7.18 09/25/2024 Hgb 11.6 (L) 09/25/2024 Hct 36.5 (L) 09/25/2024 Plt Count 293 09/25/2024 Cholesterol 149 08/19/2024 Triglycerides 83 08/19/2024 HDL Cholesterol 46.4 08/19/2024 ALT 12 09/25/2024 AST 18 09/25/2024 Sodium Lvl 140 09/25/2024 Potassium Lvl 4.0 09/25/2024 Chloride Lvl 106 09/25/2024 Creatinine Lvl 1.14 09/25/2024 BUN 19 09/25/2024 CO2 Lvl 26.4 09/25/2024 INR 0.95 08/19/2024 Hgb A1C 9.40 (H) 08/19/2024 Vitals Vitals: 09/26/24 0839 09/26/24 1246 09/26/24 1321 09/26/24 1325 BP: 117/60 Pulse: 89 98 94 92 Resp: 16 Temp: SpO2: 97% 24 Hr Tmax: Temp (24hrs), Av.8 ?C (98.3 ?F), Min:36.6 ?C (97.9 ?F), Max:37.1 ?C (98.7 ?F) Latest Weight: 82.3 kg (181 lb 7 oz) Intake & Output No intake or output data in the 24 hours ending 09/26/24 0045 I/O last 3 completed shifts: In: 237 (2.9 mL/kg) [P.O.:237] Out: - (0 mL/kg) Weight: 82.3 kg No intake/output data recorded. Medications [Held by provider] amLODIPine, 10 mg, Oral, Daily aspirin, 324 mg, Nasogastric, Daily atorvastatin, 80 mg, Oral, Daily bisacodyl, 10 mg, Rectal, Every evening Boost Glucose Control, 1 Container, Oral, TID with meals caffeine, 100 mg, Oral, BID Docusate Sodium, 100 mg, Per G Tube, q12h heparin, 5,000 Units, Subcutaneous, q8h influenza vaccine, 0.5 mL, Intramuscular, During hospitalization insulin glargine, 22 Units, Subcutaneous, Every evening ipratropium-albuterol, 3 mL, Nebulization, q6h losartan, 75 mg, Oral, Daily melatonin, 3 mg, Per G Tube, Nightly mirtazapine, 15 mg, Oral, Nightly modafinil, 100 mg, Oral, BID polyethylene glycol (PEG) 3350, 17 g, Per G Tube, q12h sennosides, 1 tablet, Oral, Nightly PRN medications: bisacodyl, dextrose, glucagon, insulin lispro, levETIRAcetam, magnesium hydroxide, midazolam, sodium chloride Physical Exam:General: in no distress HEENT: moist mucous membranes; left ptosis CV: no peripheral cyanosis Pulm: normal respiratory effort GI: non-distended abdomen Derm: no rashes or ulcers in areas examed Psych: calm, cooperative DIAGNOSES & PROBLEMSPrincipal Problem: 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) Acute stroke due to thrombosis of right middle cerebral artery (HCC) Cognitive communication deficit Hemiparesis affecting left side as late effect of stroke (CMS/HCC) ([facility]) Neurogenic bowel Other abnormalities of gait and mobility Other neuromuscular dysfunction of bladder Other sleep disorders Plan:78 y.o. male with hx of prior ischemic stroke w/ no residual deficits, HTN, DM2, lung cancer (last treatment 2021) who presented to [facility] on 08/19 w/ left sided weakness and neglect, found to have R MCA stroke s/p TNK and endovascular thrombectomy on 08/19 with subsequent improvement in strength and mentation. Mild hemorrhagic conversion. Acute care course c/b CAP s/p completion of abx on 08/28/24 Right middle cerebral artery strokeStable neurologic status; admission imaging did show some minimal hemorrhagic conversion Completed 21 days of dual antiplatelet therapy and currently on aspirin monotherapy in addition to atorvastatin for secondary stroke prevention Left hemiparesisOngoing work on neuromuscular education Cognitive deficitsSevere; arousal is the most problematic at this time Continued on caffeine and modafinil; continued trial of twice daily modafinil Gait abnormalityOngoing work on independence in mobility with physical and Occupational Therapy DysarthriaOngoing work on articulation strategies speech-language pathology HypertensionBlood pressure is controlled on current dosages of losartan Amlodipine held for orthostasis HyperglycemiaContinued on long-acting glargine as well as Premeal insulin Blood glucoses are still variable; ongoing adjustments from internal medicine Sleep dysfunctionContinue scheduled melatonin and mirtazapine Neurogenic bowelMonitor for constipation on docusate, senna, and MiraLAX Neurogenic bladderVoiding spontaneously; work on continence through time voids MalnutritionDietitian following closely; continued on diabetic supplements Continued with an increase in mirtazapine to improve dietary intake DVT prophylaxisContinue on subcutaneous heparin CODE STATUS: Full Disposition:To home with assistance from family on 09/27/24 Follow-up:[place] [facility] within 2 weeks of discharge Primary care provider within 2 weeks of discharge Yuval Stuart [facility] GER WIRELESS * Vannesa Stuart LCSW - 09/26/2024 4:21 PM MANAGER WIRELESS SW placed call to speak with daughter Orlin ([phone]) to provide weekly team rounds update. Unable to reach lv. A team conference was held on 09/26/24 to discuss patient's progress, LOS, and discharge plan. Patient's discharge date remains 09/27/24. Patient's functional level: remains substantial assist with mobility transfers, requires max verbal cueing, however, not consistent, patient is supervision partial/assist with standing. Patient is overall substantial assist with ADLs. Anticipated dc needs: due to patient's cognitive and functional deficits, he will require 24hr care and supervision at discharge. The patient will dc home with his daughter who is a nurse. Patient's daughter, and grand daughter will be the primary caregivers along with other family members prn. Daughter was also provided with additional caregiver resources for support. No further questions at this time. Vannesa Stuart LMSW GER WIRELESS * [place] Cano CCC-[employer]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 - 09/26/2024 1:36 PM MANAGER WIRELESS Speech-Language Pathology Treatment Session Note Patient Name: Chaitanya Tena Today's Date: 09/26/2024 Preferred Language: Tanzanian 09/26/24 1233 Time Calculation Start Time 1233 Stop Time 1300 Time Calculation (min) 27 min Others in Attendance Non-provider attendee Family member Session Information Location Bedside Environmental Stimulation Minimal Patient Effort and Participation Good Purpose/Target Impairment Skilled Intervention Skilled Intervention Dysphagia tx Pain Assessment Pain Assessment 0-10 Pain Score 0 Swallow Swallow Treatment Time 27 Swallowing Activity Component(s) PO Trials;Training: Family Additional Explanation: Activity Pt seen with trial tray of soft and bite-sized solids. 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 provided PO trials of soft and bite-sized solids, pt with fair acceptance, intermittent anterior loss, disorganized/effective mastication, disorganized AP transit, and mild oral residues. Pt benefitted from mod verbal/tactile cues for improved oral clearance and use of dry swallows/liquid rinses. 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 educated caregiver on results of recent MBSS and recommendations for initiating soft and bite-sized diet with 1:1 feeder assistance, feeding only when awake and alert, and education regarding swallow strategies. 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 educated caregiver on recommendations for meds whole 1 at a time in puree when awake and alert. Caregiver verbalized understanding and all questions answered at this time. Orientation Additional Explanation: Activity BIMS completed please refer to DC eval Comprehension Score Comprehends Complex or Abstract Information Without Prompting or Cueing No Mode of Comprehension Auditory Understands Directions and Conversations About Daily Needs Patient understand directions and conversation about basic daily needs 50% to 74% of the time Functional Bourbon Measure Comprehension Moderate prompting - 3 Expression Score Expresses Complex or Abstract Information Without Prompting or Cueing No Expression Mode Vocal Expresses Basic Daily Needs and Ideas Patient expresses basic daily needs and ideas 50% to 74% of the time Functional Bourbon Measure Expression Moderate prompting - 3 Social Interaction Score Interacts Appropriately Without Supervision No Appropriate in Social Situations Patient interacts appropriately 25% to 49% of the time, but may need restraint due to socially inappropriate behaviors Functional Bourbon Measure Social Interaction Maximal prompting - 2 Problem Solving Score Solves Complex Problems No Solves Routine Problems Patient solves routine problems 25% to 49% of the time, needs direction more than half the time to initiate, plan, or complete simple daily activities, and may need restraint for safety Functional Bourbon Measure Problem Solving Maximal prompting - 2 Memory Score Recognizes, Remembers Routines, and Executes Requests Without Prompting No Remembers and Executes Requests With Prompting Patient recognizes and remembers 25% to 49% of the time, and needs prompting more than half the time Functional Bourbon Measure Memory Maximal prompting - 2 Goals: Encounter Goals Encounter Goals (Active) LTG - Patient will participate in ongoing diagnostic assessments to determine plan of care Start: 09/06/24 Expected End: 09/28/24 STG - Patient will participate in ongoing diagnostic assessments to determine plan of care Start: 09/06/24 Expected End: 09/28/24 LTG - Orientation to self, time, place, and situation Start: 09/15/24 Expected End: 09/27/24 STG - Express orientation information Start: 09/15/24 Expected End: 09/27/24 LTG - Comprehension of single words and simple expressions Start: 09/15/24 Expected End: 09/27/24 STG - Answer yes/no questions Start: 09/15/24 Expected End: 09/27/24 LTG - Patient will improve on swallowing outcome measure Start: 09/15/24 Expected End: 09/27/24 STG - Improve bolus formation Start: 09/15/24 Expected End: 09/27/24 [place] Cano CCC-[employer]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 GER WIRELESS * Thelma Cuevas, PT - 09/26/2024 11:00 AM MANAGER WIRELESS Discharge Evaluation Patient Name: Chaitanya Tena Today's Date: 09/27/2024 Preferred Language: Tanzanian Assessment & Plan Assessment: PT Assessment: Mr. Tena has participated in standing and sitting balance training, midline reorientation training, and gait training while in inpatient rehab. Pt and family also paticipated in family training and DME has been ordered for patient with delivery setup. Mr. Tena has improved bed mobility from partial A to supervision and verbal cues. While variable, pt has improved stand step and stand pivot transfers to requiring touching A - partial A towards the R side. Pt has participated in gait training, but is continuing to be dependent due to the need for a wheelchair follow for safetey due to cognitive deficits and L hemineglect. Despite improving his Murcia Balance Scale from a 5/36 to a 10/36, the patient is stil at 100% risk for falls. Pt continues to demonstrate deficits due to neglect, decreased mobility, and decreased balance. Pt would continue to benefit from physical therapy at the next level of care in order to address these deficits and to continue to reduce caregiver burden. Plan: Treatment Plan/Goals Established with Patient/Caregiver: Yes PT Frequency: Discharge PT Discharge Recommendations: Home health PT Equipment Recommended: DME bathing, DME toileting PT- Okay to Discharge from Therapy: Yes PT Planned Treatment: Discharge Duration: Discharge Subjective Pt received sitting in [facility] in room with grand daughter present. Pt left sitting in [facility] with all needs in reach and grand daughter present. Pain: Pain Assessment Pain Assessment: 0-10 (09/26/20241099) Pain Score: 0 (09/26/20241099) Pain Rating Scale (DVPRS): No pain (09/26/2024 1100) Vital Signs: Patient Vitals for the past 12 hrs: BP MAP (mmHg) Pulse Resp SpO2 09/27/24 0806 -- -- 84 16 98 % 09/27/24 0756 -- -- 82 16 97 % 09/27/24 0755 -- -- 82 16 97 % 09/27/24 0713 -- -- 84 -- 97 % 09/27/24 0713 (!) 119/49 72 -- -- -- 09/27/24 0100 -- -- 91 16 94 % No data found. Objective 09/26/24 1100 General Others Present Grand daughter Time Calculation Start Time 1100 Stop Time 1200 Time Calculation (min) 60 min Pain Assessment Pain Assessment 0-10 Pain Score 0 Pain Rating Scale (DVPRS) 0 Prior Functioning: Everyday Activities Self Care Independent Indoor Mobility (Ambulation) Independent Stairs Independent Functional Cognition Independent Prior Device Use None of the given options General Evaluation Orientation Not oriented to time Affect/Behavior Calm Basic Command Following Impaired Safety/Judgment Impaired Balance- Sitting Static Sitting-Balance Support WIthout UE support Level of Assistance Supervision/touching assistance Sitting Surface Mat Roll Left and Right Assistance Needed Physical assistance Physical Assistance Level 25% or less CARE Score - Roll Left and Right 3 Lying to Sitting on Side of Bed Assistance Needed Supervision;Verbal cues Physical Assistance Level No physical assistance CARE Score - Lying to Sitting on Side of Bed 4 Sit to Lying Assistance Needed Verbal cues;Supervision Physical Assistance Level No physical assistance CARE Score - Sit to Lying 4 Transfers Transfer Yes Transfer 1 Technique 1 Stand step Level of Assistance 1 Dependent Trials/Comments 1 requiring 2 POH in order to help pt transfer to his left out of car due to neglect and cognitive deficits Transfer To/From Wheelchair;Car Assistive Devices And Adaptive Equipments No device Transfers 2 Level of Assistance 2 Supervision/touching assistance Transfer To/From Oel-ol-Qidym/Jslfg-aw-Iga Assistive Devices And Adaptive Equipments No device Transfers 3 Technique 3 Stand step Level of Assistance 3 Partial/Mod assistance Trials/Comments 3 towards L side Transfer To/From Wheelchair;Mat Assistive Devices And Adaptive Equipments No device Chair/Uex-su-Gbugz Transfer Assistance Needed Physical assistance Physical Assistance Level 25% or less Comment stand step towards R CARE Score - Chair/Omb-ua-Dmjod Transfer 3 Sit to Stand Assistance Needed Supervision;Incidental touching Physical Assistance Level No physical assistance CARE Score - Sit to Stand 4 Car Transfer Assistance Needed Physical assistance Physical Assistance Level Total assistance Comment requiring two pairs of hands to perform safely CARE Score - Car Transfer 1 Gait Training Gait Training Activity Yes Gait Training Activity 1 Distance (enter in feet) 1 x 50 feet Assistive Devices And Adaptive Equipments Walker, front-wheeled Level of Assistance 1 Dependent Gait Training Activity 1 Comment touching A with RW, but requiring WC follow and two pairs of hands for sitting safelty Surface And Method Over ground;Indoor;Even surface Walk 10 Feet Assistance Needed Physical assistance Physical Assistance Level 25% or less Comment RW CARE Score - Walk 10 Feet 3 Walk 50 Feet with Two Turns Assistance Needed Physical assistance Physical Assistance Level Total assistance Comment touching A with RW, but requiring second person in order to provide WC follow and to help pt sit down due to confusion and neglect CARE Score - Walk 50 Feet with Two Turns 1 Walk 150 Feet Assistance Needed Physical assistance Physical Assistance Level Total assistance Comment touching A with RW, but requiring second person in order to provide WC follow and to help pt sit down due to confusion and neglect CARE Score - Walk 150 Feet 1 Walking 10 Feet on Uneven Surfaces Reason if not Attempted Safety concerns CARE Score - Walking 10 Feet on Uneven Surfaces 88 Picking Up Object Reason if not Attempted Safety concerns CARE Score - Picking Up Object 88 1 Step (Curb) Reason if not Attempted Safety concerns CARE Score - 1 Step (Curb) 88 4 Steps Reason if not Attempted Safety concerns CARE Score - 4 Steps 88 12 Steps Reason if not Attempted Safety concerns CARE Score - 12 Steps 88 Wheel 50 Feet with Two Turns Assistance Needed Physical assistance Physical Assistance Level Total assistance CARE Score - Wheel 50 Feet with Two Turns 1 Type of Wheelchair/Scooter Manual Wheel 150 Feet Assistance Needed Physical assistance Physical Assistance Level Total assistance CARE Score - Wheel 150 Feet 1 Type of Wheelchair/Scooter Manual RLE Assessment RLE Assessment WFL LLE Assessment LLE Assessment WFL Overall Lower Extremity/Trunk Tone Left Lower Extremity Normal Right Lower Extremity Normal Trunk Normal PT Assessment PT Assessment Mr. Tena has participated in standing and sitting balance training, midline reorientation training, and gait training while in inpatient rehab. Pt and family also paticipated in family training and DME has been ordered for patient with delivery setup. Mr. Tena has improved bed mobility from partial A to supervision and verbal cues. While variable, pt has improved stand step and stand pivot transfers to requiring touching A - partial A towards the R side. Pt has participated in gait training, but is continuing to be dependent due to the need for a wheelchair follow for safetey due to cognitive deficits and L hemineglect. Despite improving his Murcia Balance Scale from a 5/36 to a 10/36, the patient is stil at 100% risk for falls. Pt continues to demonstrate deficits due to neglect, decreased mobility, and decreased balance. Pt would continue to benefit from physical therapy at the next level of care in order to address these deficits and to continue to reduce caregiver burden. PT Plan Treatment Plan/Goals Established with Patient/Caregiver Yes PT Frequency Discharge PT Discharge Recommendations Home health PT Equipment Recommended DME bathing;DME toileting PT- Okay to Discharge from Therapy Yes PT Planned Treatment Discharge Duration Discharge Functional Transfers: Education provided to grand daughter on car transfers. Pt practices stand step to their own care. Pt touching A transferring into car on R. Pt total A transferring to L, grand daughter assisting with getting pt to sit in [facility]. There Ex: 2 x 10 sit to stands with supervision from grand daughter Education on adding this to HEP 60 seconds balance in standing with SVN from grand daughter Outcome Measures: Murcia Balance Scale 1. Sitting to Standing: Able to stand independently using hands 2. Standing Unsupported: Unable to stand 30 seconds unsupported 3. Sitting with Back Unsupported but Feet Supported on Floor or on a Stool: Able to sit 2 minutes under supervision 4. Standing to Sitting: Uses back of legs against chair to control descent 5. Transfers: Able to transfer with verbal cueing and/or supervision 6. Standing Unsupported with Eyes Closed: Needs help to keep from falling 7. Standing Unsupported with Feet Together: Needs help to attain position and unable to hold for 15 seconds 8. Reach Forward with Outstretched Arm While Standing: Loses balance while trying/requires external support 9. Desktop Publishing Specialist Object from Floor from a Standing Position: Unable to try/needs assist to keep from losing balance or falling 10. Turning to Look Behind Over Left and Right Shoulders While Standing: Needs assist to keep from losing balance or falling 11. Turn 360 Degrees: Needs assistance while turning 12. Place Alternate Foot on Step or Stool While Standing Unsupported: Needs assistance to keep from falling/unable to try 13. Standing Unsupported One Foot in Front: Loses balance while stepping or standing 14. Standing on One Leg: Unable to try needs assist to prevent fall Murcia Balance Score: 10 6 min walk 6 min walk: 0 10 meter walk (fast and self-selected) 10 meter walk (fast and self-selected): 0 Patient Education:Education Documentation Car Transfers, taught by Thelma Cuevas PT at 09/27/2024 8:34 AM. Learner: Family, Patient Readiness: Acceptance Method: Explanation, Demonstration Response: Verbalizes Understanding Durable Medical Equipment, taught by Thelma Cuevas PT at 09/27/2024 8:34 AM. Learner: Family, Patient Readiness: Acceptance Method: Explanation, Handout Response: Verbalizes Understanding Comment: family provided with handout on DME ordered by PT Home Therapy Program, taught by Thelma Cuevas PT at 09/27/2024 8:34 AM. Learner: Family, Patient Readiness: Acceptance Method: Explanation, Demonstration Response: Verbalizes Understanding, Demonstrated Understanding Education CommentsNo comments found. Goals:Encounter Goals Encounter Goals (Active) Pt will perform all bed mobility independently (Not Met) Start: 09/06/24 Expected End: 09/27/24 Goal Note Due to inconsistencies with presentation, pt requiring SVN - partial A with bed mobility LTG: Pt will ambulate > 150 ft with SPV and LRAD (Not Met) Start: 09/06/24 Expected End: 09/27/24 Goal Note Pt continuing to require two person assistance due to need for wheelchairfollow, therefore dependent LTG: Pt will improve BBS to 36/56 to indicate decreased risk for falls (Not Met) Start: 09/06/24 Expected End: 09/27/24 Goal Note Pt scores a 10/36 on BBS STG: Pt will improve BBS to >13/56 to indicate decreased risk for falls (IE5/56, MDC 6.9 pts) (Not Met) Start: 09/06/24 Expected End: 09/27/24 Goal Note Pt scores a 10/36 on BBS Encounter Goals (Resolved) STG: Assess gait as appropriate (Completed) Start: 09/06/24 Expected End: 09/13/24 Resolved: 09/12/24 Goal Note Gait with RW and 2 POH Within 2 weeks of starting therapy, the patient and/or family/caregiver will demonstrate independence and be compliant in a written HEP in order to maximize gains made during therapy. (Completed) Start: 09/06/24 Expected End: 09/27/24 Resolved: 09/27/24 Goal Note Pt provided with HEP and grand daughter trained LTG: Pt will perform stand step transfers with set-up assist and LRAD (Completed) Start: 09/06/24 Expected End: 09/27/24 Resolved: 09/27/24 Goal Note Pt able to transfer with set-up assistance without AD STG: Pt will perform stand step transfers with touch A and LRAD (Completed) Start: 09/06/24 Expected End: 09/27/24 Resolved: 09/27/24 Thelma Mason, PT GER [facility]IRELESS * Jenny Jernigan MD - 09/26/2024 10:38 AM MANAGER WIRELESS Subjective Patient had no fevers or vomiting overnight Objective Last Recorded Vitals Blood pressure 136/63, pulse 89, temperature 36.6 ?C (97.9 ?F), temperature source Oral, resp. rate 14, height 1.702 m (5' 7"), weight 82.3 kg (181 lb 7 oz), SpO2 96%. Physical Exam: GEN: NAD, appears stated age HEAD: normocephalic atraumatic EENT: PERRLA, no scleral icterus, trachea is midline, neck is supple CV: Regular rate and rhythm, no murmurs, no gallops or rubs, no extremity edema, intact peripheral pulses PULM: lungs clear to auscultation, no accessory muscle use ABD: Soft, non distended, non tender, bowel sounds present NEURO; oriented x 1 but kept falling asleep SKIN: warm to palpation, no abnormal discoloration Current Active Medications [Held by provider] amLODIPine, 10 mg, Oral, Daily aspirin, 324 mg, Nasogastric, Daily atorvastatin, 80 mg, Oral, Daily bisacodyl, 10 mg, Rectal, Every evening Boost Glucose Control, 1 Container, Oral, TID with meals caffeine, 100 mg, Oral, BID Docusate Sodium, 100 mg, Per G Tube, q12h heparin, 5,000 Units, Subcutaneous, q8h influenza vaccine, 0.5 mL, Intramuscular, During hospitalization insulin glargine, 22 Units, Subcutaneous, Every evening ipratropium-albuterol, 3 mL, Nebulization, q6h losartan, 75 mg, Oral, Daily melatonin, 3 mg, Per G Tube, Nightly mirtazapine, 15 mg, Oral, Nightly modafinil, 100 mg, Oral, BID polyethylene glycol (PEG) 3350, 17 g, Per G Tube, q12h sennosides, 1 tablet, Oral, Nightly PRN medications: bisacodyl, dextrose, glucagon, insulin lispro, levETIRAcetam, magnesium hydroxide, midazolam, sodium chloride Lab ResultsResults from last 7 days Lab Units 09/25/24 0542 WBC 10*3/uL 7.18 HEMOGLOBIN g/dL 11.6* HEMATOCRIT % 36.5* PLATELETS 10*3/uL 293 Results from last 7 daysLab Units 09/26/24 0730 09/25/24 0912 09/25/24 0542 SODIUM mEq/L -- -- 140 POTASSIUM mEq/L -- -- 4.0 CHLORIDE mEq/L -- -- 106 CO2 mEq/L -- -- 26.4 BUN mg/dL -- -- 19 CREATININE mg/dL -- -- 1.14 GLUCOSE mg/dL -- -- 179* POC GLUCOSE mg/dL 123* < > -- CALCIUM mg/dL -- -- 9.6 < > = values in this interval not displayed. Javon Tena is a 78 y.o. 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 His hospital course was complicated by bacterial pneumonia for which he completed course of antimicrobials. He is now here for comprehensive rehabilitation. Assessment & Plan Right MCA stroke:On aspirin and atorvastatin On modafinil Comprehensive rehabilitation Type 2 diabetes mellitus:Some elevated blood sugars yesterday morning For now continue glargine 22 units qhs and will continue to monitor but will hold off on any adjustments at this time Diet specifically includes ability to have pudding and applesauce so perhaps can touch base with dietitian for alternatives if persistently hyperglycemic Correction dose insulin with Accu-Cheks ACHS Hypertension:Continue losartan 75 mg daily Amlodipine on hold with orthostasis VTE prophylaxis: heparin - 5000 units/mL GER [facility]IRELESS GER WIRELESS * Derrell Davis OT - 09/26/2024 10:00 AM MANAGER WIRELESS Discharge Evaluation Patient Name: Chaitanya Tena Today's Date: 09/26/2024 Preferred Language: Tanzanian Assessment & Plan Assessment: OT Assessment: Pt was calm and coopertaive during the discharge evaluation today. Pt demo increased independence in UB dressing. Req cues to initate and termnitae the tasks. Niece at bedside and educated on self stragteries Evaluation/Treatment Tolerance: Patient limited by fatigue Plan: Treatment Plan/Goals Established with Patient/Caregiver: Yes Treatment Interventions: ADL retraining, Cognitive reorientation, Aquatic therapy, Compensatory technique education, Endurance training, Equipment evaluation/education, Functional transfer training, Fine motor coordination activities, Neuromuscular reeducation, Orthotic/Orthotic management, Patient/family training, Positioning, UE strengthening/ROM, Visual perceptual retraining OT Plan: Skilled OT OT Frequency: Discharge OT Discharge Recommendations: Home Health OT Equipment Recommended: DME wheelchair, Wheelchair- seat cushion pressure reducing, Wheelchair- back OT - OK to Discharge: Yes OT Planned Treatments: Discharge OT Duration: Discharge Subjective Pain: Pain Assessment Pain Assessment: DVPRS (09/26/2024 1000) Pain Score: 0 (09/26/2024 1000) Post-Therapy Intervention Pain Assessment: Vital Signs: Patient Vitals for the past 24 hrs: BP MAP (mmHg) Pulse Resp SpO2 09/26/24 1246 -- -- 98 -- -- 09/26/24 0839 -- -- 89 -- -- 09/26/24 0726 -- -- -- 14 -- 09/26/24 0726 136/63 87 63 15 -- 09/26/24 0723 -- -- 92 18 96 % 09/26/24 0712 -- -- 97 18 96 % 09/26/24 0247 -- -- 88 18 100 % 09/26/24 0236 -- -- 82 18 98 % 09/25/24 2156 -- -- 94 18 100 % 09/25/24 2133 -- -- 90 18 96 % 09/25/241999 (!) 146/51 83 93 21 -- 09/25/24 1804 (!) 175/75 -- 96 -- -- 09/25/24 1547 -- -- 56 -- 95 % 09/25/24 1546 (!) 144/59 87 -- -- -- 09/25/24 1416 -- -- 88 18 99 % 09/25/24 1409 -- -- 89 18 97 % 09/25/24 1331 -- -- 93 -- -- Patient Education: Education Documentation No documentation found. Education Comments No comments found. 09/26/24 1000 General Family/Caregiver Present Yes Others Present Niece Time Calculation Start Time 1000 Stop Time 1100 Time Calculation (min) 60 min Pain Assessment Pain Assessment DVPRS Pain Score 0 Shower/Bathe Self Assistance Needed Physical assistance Physical Assistance Level 51%-75% CARE Score - Shower/Bathe Self 2 Grooming Activity Component(s) Combing/brushing/Styling hair;Oral hygiene (Simultaneous filing. User may not have seen previous data.) Grooming Location Wheelchair Level of Assistance Partial/Mod assistance Oral Hygiene Assistance Needed Physical assistance Physical Assistance Level 51%-75% Comment assist for cleaning/setup of dentures CARE Score - Oral Hygiene 2 Upper Body Dressing UE Dressing Activity Component(s) Abdominal binder;Zip-up sweatshirt/jacket;Short sleeve shirt Dressing Location/Position In wheelchair Level of Assistance Partial/Mod assistance Comment req max cues to complete activity; total a for abdominal binder Upper Body Dressing Assistance Needed Physical assistance Physical Assistance Level 26%-50% CARE Score - Upper Body Dressing 3 Lower Body Dressing Assistance Needed Physical assistance Physical Assistance Level 51%-75% CARE Score - Lower Body Dressing 2 Footwear Dressing Activity Component(s) Shoes;Socks;Compression hose/stockings Dressing Location/Position In wheelchair Level of Assistance Substantial/Max assistance Putting On/Taking Off Footwear Assistance Needed Physical assistance Physical Assistance Level 76% or more CARE Score - Putting On/Taking Off Footwear 2 Eating Assistance Needed Physical assistance Physical Assistance Level 51%-75% CARE Score - Eating 2 Toileting Hygiene Assistance Needed Physical assistance Physical Assistance Level Total assistance Comment 2 person needed CARE Score - Toileting Hygiene 1 Toilet Transfer Assistance Needed Physical assistance Physical Assistance Level 51%-75% Comment pt variable with cog; can be partial a- mod a CARE Score - Toilet Transfer 2 Transfers Transfer Yes Transfer 1 Level of Assistance 1 Partial/Mod assistance Transfer To/From [id number] Assistive Devices And Adaptive Equipments No device General Evaluation Orientation Not oriented to place;Not oriented to situation;Not oriented to time Affect/Behavior Calm Basic Command Following Impaired Safety/Judgment Impaired Activity Tolerance Evaluation/Treatment Tolerance Patient limited by fatigue Vision - Basic Assessment Current Vision (wears glasses sometimes) Visual History Brain injury Vision - Complex Assessment Tracking Decreased smoothness of eye movement to L superior field Saccades Unable to test secondary to decreased visual attention Convergence Unable to test secondary to decreased visual attention Visual Ferro Unable to test secondary due to decreased visual attention Sensation Light Touch LUE Impaired;RUE Intact Deep Pressure RUE Intact;LUE Intact Sensation Comments unable to formally assess d/ t cog defictis; responsed to noxious stimuli at LUE Perception Inattention/Neglect Cues to attend left visual field;Cues to attend to left side of body;Cues to maintain midline in sitting;Cues to maintain midline in standing Initiation Cues to initiate tasks Motor Planning Cues to use objects appropriately Perseveration Perseverates during ADLs Coordination Movements are Fluid and Coordinated No Hand Function Gross Grasp Functional Coordination Functional Posture Position Assessed Sitting Posture Assessed Status No deviation noted RUE Assessment RUE Assessment WFL RUE Strength RUE Overall Strength Within Functional Limits - able to perform ADL tasks with strength LUE Assessment LUE Assessment WFL LUE Strength LUE Overall Strength Within Functional Limits - able to perform ADL tasks with strength Upper Extremity Tone Left Upper Extremity Normal Right Upper Extremity Normal Assessments/Outcomes Modified Chapis Scale Modified Chapis Scale Modified Chapis Muscle Tested 1 BUE all muscle groups Modified Chapis Score 1 0 Hearing, Speech, and Vision Ability to Hear Minimal difficulty Ability to See in Adequate Light Impaired (left visual inattention) Expression of Ideas and Wants Some difficulty Understanding Verbal and Non-Verbal Content Sometimes understands Prior Functioning: Everyday Activities Self Care Independent Indoor Mobility (Ambulation) Independent Stairs Independent Functional Cognition Independent Prior Device Use None of the given options OT Assessment OT Assessment Pt was calm and coopertaive during the discharge evaluation today. Pt demo increased independence in UB dressing. Req cues to initate and termnitae the tasks. Niece at bedside and educated on self stragteries OT Plan OT Frequency Discharge OT Discharge Recommendations Home Health OT Equipment Recommended DME wheelchair;Wheelchair- seat cushion pressure reducing;Wheelchair- back OT - OK to Discharge Yes OT Planned Treatments Discharge OT Duration Discharge OT Evaluation Time Entry OT Re-Evaluation Time Entry 60 Goals: Encounter Goals Encounter Goals (Active) Patient will perform feeding with minimum assist for improved independence with ADLs (Not Met) Start: 09/06/24 Expected End: 09/27/24 Goal Note With substantial max Patient will perform lower body dressing with moderate assist to improve independence with dressing. (Not Met) Start: 09/06/24 Expected End: 09/27/24 Goal Note With substantial max Encounter Goals (Resolved) Patient will perform grooming with minimum assist for improved independencewith ADLs (Completed) Start: 09/06/24 Expected End: 09/27/24 Resolved: 09/26/24 Goal Note Grooming with partial/mod a Patient will perform upper body dressing with minimum assist to improve independence with dressing. (Completed) Start: 09/06/24 Expected End: 09/27/24 Resolved: 09/26/24 Goal Note UB dressing with partial/ mod a Pt and/or caregiver(s) will have all appropriate DME, recommendations, or completed prescriptions to maximize pt's safety and independence at discharge. (Completed) Start: 09/06/24 Expected End: 09/27/24 Resolved: 09/26/24 Patient and/or caregivers will verbalize understanding of home program including safety tips, equipment instructions, and home exercises. (Completed) Start: 09/06/24 Expected End: 09/27/24 Resolved: 09/26/24 Patient will participate in forced use activities using the affected upper extremity with minimum assistance to inhibit abnormal movement patterns. (Completed) Start: 09/06/24 Expected End: 09/27/24 Resolved: 09/25/24 Patient will incoporate their affected upper extremity with minimal assist/cues during functional task performance. (Completed) Start: 09/06/24 Expected End: 09/27/24 Resolved: 09/25/24 Patient will participate in seating and mobility trials to improve posture, reduce tone, and prevent secondary complications. (Completed) Start: 09/06/24 Expected End: 09/27/24 Resolved: 09/25/24 Derrell Davis OT GER [facility] * Phoenix Cano CCC-[employer]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 - 09/26/2024 9:10 AM MANAGER WIRELESS Speech-Language Pathology Treatment Session Note Patient Name: Chaitanya Tena Today's Date: 09/26/2024 Preferred Language: Tanzanian 09/26/24 0910 Time Calculation Start Time 0910 Stop Time 0920 Time Calculation (min) 10 min General Amount of Missed Time (min) 20 Minutes Missed Time Reason Toileting;Other (Comment) ( rounding) Others in Attendance Non-provider attendee Family member Session Information Location Bedside;Common room Environmental Stimulation Minimal Patient Effort and Participation Fair Purpose/Target Impairment Pain Assessment Pain Assessment 0-10 Pain Score 0 Orientation Activity Component(s) Time;Place;Situation/Etiology/Injury Additional Explanation: Activity Pt IND orineted to hospital and dx. Extensive review of additional orientation information provided. Pt demonstrated immediate recall of TANYA and year; however, pt unable to demonstrate carryover following brief delay despite max cues/repetitions. Level of Assistance Maximal prompting Cue/Prompt Type Verbal Cue/Prompt Intensity Maximum Situation During or as therapeutic activity Problem Solving Task Employed Other Level of Task Difficulty Basic Additional Explanation: Activity Pt with impulsive behavior, attempting to go to restroom INDLY. Given verbal prompt, pt able to ID appropriate steps to requesting assistance. [employer]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 instructed pt in use of call-light, required max cues. Level of Assistance Maximal prompting Cue/Prompt Type Multimodal Cue/Prompt Intensity Maximum Situation During or as therapeutic activity FIM Scores: Comprehension: Comprehends Complex or Abstract Information Without Prompting or Cueing: No Mode of Comprehension: Auditory Understands Directions and Conversations About Daily Needs: Patient understand directions and conversation about basic daily needs 50% to 74% of the time Functional Bourbon Measure Comprehension: Moderate prompting - 3 Expression: Expresses Complex or Abstract Information Without Prompting or Cueing: No Expression Mode: Vocal Expresses Basic Daily Needs and Ideas: Patient expresses basic daily needs and ideas 50% to 74% of the time Functional Bourbon Measure Expression: Moderate prompting - 3 Social Interaction: Interacts Appropriately Without Supervision: No Appropriate in Social Situations: Patient interacts appropriately 25% to 49% of the time, but may need restraint due to socially inappropriate behaviors Functional Bourbon Measure Social Interaction: Maximal prompting - 2 Problem Solving: Solves Complex Problems: No Solves Routine Problems: Patient solves routine problems 25% to 49% of the time, needs direction more than half the time to initiate, plan, or complete simple daily activities, and may need restraint for safety Functional Bourbon Measure Problem Solving: Maximal prompting - 2 Memory: Recognizes, Remembers Routines, and Executes Requests Without Prompting: No Remembers and Executes Requests With Prompting: Patient recognizes and remembers 25% to 49% of the time, and needs prompting more than half the time Functional [place]bon Measure Memory: Maximal prompting - 2 Goals: Encounter Goals Encounter Goals (Active) LTG - Patient will participate in ongoing diagnostic assessments to determine plan of care Start: 09/06/24 Expected End: 09/28/24 STG - Patient will participate in ongoing diagnostic assessments to determine plan of care Start: 09/06/24 Expected End: 09/28/24 LTG - Orientation to self, time, place, and situation Start: 09/15/24 Expected End: 09/27/24 STG - Express orientation information Start: 09/15/24 Expected End: 09/27/24 LTG - Comprehension of single words and simple expressions Start: 09/15/24 Expected End: 09/27/24 STG - Answer yes/no questions Start: 09/15/24 Expected End: 09/27/24 LTG - Patient will improve on swallowing outcome measure Start: 09/15/24 Expected End: 09/27/24 STG - Improve bolus formation Start: 09/15/24 Expected End: 09/27/24 Phoenix Cano CCC[employer]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 GER [employer]IRELESS * Lala Vazquez - 09/25/2024 5:20 PM MANAGER WIRELESS Name: Chaitanya Tena Date of : 1945 Location: [facility] Current Medication List for Medication Teaching This is not your final medication list for discharge. This list is for educational purposes only. Your current Medication List of your Scheduled Doses as of September 25, 2024 11:48 AM: [facility]/pharmacy #[id number] - [place], [place] - [address] AT [facility] Aspirin, 324 mg, Daily FOR HEART ATTACK / STROKE PREVENTION. May cause easy bruising. Monitor for bleeding and report to physician. *available without prescription Atorvastatin (Lipitor), 80 mg, Oral, Daily FOR CHOLESTEROL. Call your doctor for new or worsening muscle weakness/muscle pain. Lowering cholesterol helps prevent heart attack and stroke. Losartan (Cozaar), 75 mg, Oral, Daily FOR BLOOD PRESSURE CONTROL. Low blood pressure can cause dizziness and falls. High blood pressure increases risk for heart attack and stroke. HOLD for SBP<110 Insulin glargine (Lantus), 22 Units, Subcutaneous, Every evening FOR DIABETES. This medication lowers your blood sugar levels. If you experience dizziness, sweating, or confusion, your blood sugar may be too low. Check your blood sugars if meal missed or you suspect low blood sugars. Ipratropium-albuterol (Duoneb), 3 mL, Nebulization, Every 6 hours FOR SHORTNESS OF BREATH. Use as instructed by respiratory. May cause fast heartbeat. Caffeine, 100 mg, Oral, At 8am and 12pm FOR ALERTNESS. Limit your use of other forms of caffeine (for example, tea, coffee, cola). To prevent sleep problems, avoid taking this drug late in the day. May cause fast heartbeat. Modafinil (Provigil), 100 mg, Oral, At 8am and 12pm FOR ALERTNESS. This medication may help with alertness, memory, and the ability to complete a task. To prevent sleep problems, avoid taking this drug late in the day. Polyethylene glycol (PEG) 3350 (Miralax), 17 g, Twice daily FOR CONSTIPATION. May cause bloating. *available without prescription Sennosides (Senna), 1 tablet, Oral, Nightly FOR CONSTIPATION. May cause bloating. *available without a prescription Docusate (Colace), 100 mg, Per G Tube, Twice daily FOR CONSTIPATION. May cause bloating. *available without a prescription Bisacodyl (Dulcolax), 10 mg, Rectal, Every evening FOR BOWELS. This medication works by stimulating contractions in the gut. Wash hands before and after use. May cause abdominal pain *available without a prescription Melatonin, 3 mg, Nightly FOR HELP WITH SLEEP. If you wake up confused or very sleepy everyday on this medication the dose may be adjusted - contact your doctor. *available without a prescription Mirtazapine (Remeron), 15 mg, Oral, Nightly FOR APPETITE STIMULATION / SLEEP. This medication may also cause constipation and drowsiness. Do not stop taking this drug without consulting your doctor. What to do if you forget to take your medication: Be careful not to take doses too close together because you might get side effects. Don't double your next dose to catch up. If the dose is less than 2 hours late :Take the missed dose now. It is usually safe to take most medicines up to 2 hours late. If the dose is more than 2 hours late-The advice depends on how often you take your medicine: If you take your medicine once or twice a day-Take the missed dose now, as long as the next dose is not due within a few hours. If you take your medicine more than twice a day- Do not take the missed dose. It is usually safer to skip it. Lala Vazquez PharmD. Candidate, Class of 2024 Cosigned by Penny Flores PharmD at 09/26/2024 11:56 AM MANAGER WIRELESS GER WIRELESS GER WIRELESS GER WIRELESS GER WIRELESS GER WIRELESS GER WIRELESS GER WIRELESS * Narciso Mcclain MD - 09/25/2024 4:42 PM MANAGER WIRELESS Physical Medicine & Rehabilitation Daily Progress Note Code status: Full Code Current diet: Adult Diet Dysphagia; 0 - Thin Liquids; 5 - Minced & Moist (Dysphagia Ground); 1:1 Feeding Isolation: No active isolations Allergies: Patient has no known allergies. Subjective: No events report last night by nursing. Granddaughter at bedside this AM Reports feeling well, arousal has improved with neurostimulants Objective: Sleep hours logged Nighttime Sleep Hours: 9 hrs Last Bowel Movement: Last BM Date: 09/24/24 Stool Color: Brown Stool Appearance: Soft Stool Amount: Large Bowel Incontinence: Yes Bowel Elimination Assistance Level: Completely dependent Labs Lab Results Component Value Date WBC 7.18 09/25/2024 Hgb 11.6 (L) 09/25/2024 Hct 36.5 (L) 09/25/2024 Plt Count 293 09/25/2024 Cholesterol 149 08/19/2024 Triglycerides 83 08/19/2024 HDL Cholesterol 46.4 08/19/2024 ALT 12 09/25/2024 AST 18 09/25/2024 Sodium Lvl 140 09/25/2024 Potassium Lvl 4.0 09/25/2024 Chloride Lvl 106 09/25/2024 Creatinine Lvl 1.14 09/25/2024 BUN 19 09/25/2024 CO2 Lvl 26.4 09/25/2024 INR 0.95 08/19/2024 Hgb A1C 9.40 (H) 08/19/2024 Vitals Vitals: 09/25/24 1409 09/25/24 1416 09/25/24 1546 09/25/24 1547 BP: (!) 144/59 Pulse: 89 88 56 Resp: 18 18 Temp: SpO2: 97% 99% 95% 24 Hr Tmax: Temp (24hrs), Av.9 ?C (98.4 ?F), Min:36.6 ?C (97.9 ?F), Max:37.1 ?C (98.8 ?F) Latest Weight: 82.3 kg (181 lb 7 oz) Intake & Output Intake/Output Summary (Last 24 hours) at 09/25/2024 1642 Last data filed at 09/25/2024 0800 Gross per 24 hour Intake 237 ml Output -- Net 237 ml I/O last 3 completed shifts: In: - (0 mL/kg) Out: 1 (0 mL/kg) [Urine:1 (0 mL/kg/hr)] Weight: 82.3 kg I/O this shift: In: 237 [P.O.:237] Out: - Medications [Held by provider] amLODIPine, 10 mg, Oral, Daily aspirin, 324 mg, Nasogastric, Daily atorvastatin, 80 mg, Oral, Daily bisacodyl, 10 mg, Rectal, Every evening Boost Glucose Control, 1 Container, Oral, TID with meals caffeine, 100 mg, Oral, BID Docusate Sodium, 100 mg, Per G Tube, q12h heparin, 5,000 Units, Subcutaneous, q8h influenza vaccine, 0.5 mL, Intramuscular, During hospitalization insulin glargine, 22 Units, Subcutaneous, Every evening ipratropium-albuterol, 3 mL, Nebulization, q6h losartan, 75 mg, Oral, Daily melatonin, 3 mg, Per G Tube, Nightly mirtazapine, 15 mg, Oral, Nightly modafinil, 100 mg, Oral, BID polyethylene glycol (PEG) 3350, 17 g, Per G Tube, q12h sennosides, 1 tablet, Oral, Nightly PRN medications: bisacodyl, dextrose, glucagon, insulin lispro, levETIRAcetam, magnesium hydroxide, midazolam, sodium chloride Physical Exam:General: in no distress HEENT: moist mucous membranes; left ptosis CV: no peripheral cyanosis Pulm: normal respiratory effort GI: non-distended abdomen Derm: no rashes or ulcers in areas examed Psych: calm, cooperative DIAGNOSES & PROBLEMSPrincipal Problem: 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 male with hx of prior ischemic stroke w/ no residual deficits, HTN, DM2, lung cancer (last treatment 2021) who presented to [facility] on 08/19 w/ left sided weakness and neglect, found to have R MCA stroke s/p TNK and endovascular thrombectomy on 08/19 with subsequent improvement in strength and mentation. Mild hemorrhagic conversion. Acute care course c/b CAP s/p completion of abx on 08/28/24 Right middle cerebral artery strokeStable neurologic status; admission imaging did show some minimal hemorrhagic conversion Completed 21 days of dual antiplatelet therapy and currently on aspirin monotherapy in addition to atorvastatin for secondary stroke prevention Left hemiparesisOngoing work on neuromuscular education Cognitive deficitsSevere; arousal is the most problematic at this time Continued on caffeine and modafinil; continued trial of twice daily modafinil Gait abnormalityOngoing work on independence in mobility with physical and Occupational Therapy DysarthriaOngoing work on articulation strategies speech-language pathology HypertensionBlood pressure is controlled on current dosages of losartan Amlodipine held for orthostasis HyperglycemiaContinued on long-acting glargine as well as Premeal insulin Blood glucoses are still variable; ongoing adjustments from internal medicine Sleep dysfunctionContinue scheduled melatonin and mirtazapine Neurogenic bowelMonitor for constipation on docusate, senna, and MiraLAX Neurogenic bladderVoiding spontaneously; work on continence through time voids MalnutritionDietitian following closely; continued on diabetic supplements Continued with an increase in mirtazapine to improve dietary intake DVT prophylaxisContinue on subcutaneous heparin CODE STATUS: Full Disposition:To home with assistance from family on 09/27/24 Follow-up:[place] [facility] within 2 weeks of discharge Primary care provider within 2 weeks of discharge Yuval Stuart [facility] Physician [facility] St[facility] GER WIRELESS * Phoenix Cano CCC-[employer]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 - 09/25/2024 2:15 PM MANAGER WIRELESS Speech-Language Pathology Treatment Session Note Patient Name: Chaitanya Tena Today's Date: 09/25/2024 Preferred Language: Tanzanian 09/25/24 1415 Time Calculation Start Time 1415 Stop Time 1458 Time Calculation (min) 43 min General Amount of Missed Time (min) 17 Minutes Missed Time Reason Other (Comment) (breathing tx) Pain Assessment Pain Assessment 0-10 Pain Score 0 Swallow Swallow Treatment Time 25 Swallowing Activity Component(s) PO Trials Additional Explanation: Activity [employer]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 provided pt with PO trials of regular solids via small bolus trials. Pt with fair bolus acceptance, poor oral containment of solids (~10-20% loss), disorganized mastication/AP transit, and L sided pocketing. Pt required mod-max verbal/tactile cues and liquid rinses to improve oral clearance of residues/pocketed material. Level of Assistance Moderate assist Cue/Prompt Type Verbal;Tactile Cue/Prompt Intensity Mod-Max Compensatory Strategy Training [specific strategy] lingual sweep Situation During or as therapeutic activity Attention Attention Skill(s) [specify if applicable; eg, sustained] Attention-visual Task Employed Functional reaching/targeting Level of Task Difficulty Basic Additional Explanation: Activity Pt participated in task targeting visual attention. Pt ID'd objects in immediate enviornment, placed at midline and in L visual field. Pt ID 3/3 items at midline and 0/3 items in L-visual field given MAX multimodal cueing. Level of Assistance Maximal prompting Cue/Prompt Type Verbal;Tactile;Visual Cue/Prompt Intensity Maximum Compensatory Strategy Training [specify strategy] scanning Situation During or as therapeutic activity Orientation Activity Component(s) Place;Time;Situation/Etiology/Injury Additional Explanation: Activity Pt IND orineted to hospital only. Given min cues, pt oriented to hospital name and dx. Pt not oriented to TANYA and year. MAX cues/repetitions and external aids provided for improved orientation. Pt unable to demonstrate delayed recall of orientation information and required TOTAL A for use of external memory aids. Level of Assistance Maximal prompting Cue/Prompt Type Verbal;Visual Cue/Prompt Intensity Maximum Compensatory Strategy Training [specify strategy] external visual aids Memory Score Recognizes, Remembers Routines, and Executes Requests Without Prompting No Remembers and Executes Requests With Prompting Patient recognizes and remembers 25% to 49% of the time, and needs prompting more than half the time Functional [place] Measure Memory Maximal prompting - 2 Goals: Encounter Goals Encounter Goals (Active) LTG - Patient will participate in ongoing diagnostic assessments to determine plan of care Start: 09/06/24 Expected End: 09/28/24 STG - Patient will participate in ongoing diagnostic assessments to determine plan of care Start: 09/06/24 Expected End: 09/28/24 LTG - Orientation to self, time, place, and situation Start: 09/15/24 Expected End: 09/27/24 STG - Express orientation information Start: 09/15/24 Expected End: 09/27/24 LTG - Comprehension of single words and simple expressions Start: 09/15/24 Expected End: 09/27/24 STG - Answer yes/no questions Start: 09/15/24 Expected End: 09/27/24 LTG - Patient will improve on swallowing outcome measure Start: 09/15/24 Expected End: 09/27/24 STG - Improve bolus formation Start: 09/15/24 Expected End: 09/27/24 [place] Cano [employer]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 GER WIRELESS * Thelma Cuevas PT - 09/25/2024 11:00 AM MANAGER WIRELESS Treatment Session Note Patient Name: Chaitanya Tena Today's Date: 09/26/2024 Preferred Language: Tanzanian Assessment & Plan Assessment: PT Assessment: Pt noted to have decreased performance in functional mobility today, falling asleep frequently throughout session and with more confusion and verbal aggression. PT initiates family training with pt grand daughter, who demonstrates safety and understading with performing transfers. PT tries car transfers with pt, however pt requiring total A and with increased confusion and agitation, see therapeutic activity section for more detail. PT with concerns due to pt actively resisting transferring back into his [facility], requiring total A. Pt grand daughter also expresses concerns about the physical demand of transferring pt out of car. PT will likely trial car transfers again tomorrow in order to determine if pt fatigue and confusion was limiting him today. However, due to variability of pt performance medical transport is likely a safer option than transport in car at this time. Plan: Treatment Plan/Goals Established with Patient/Caregiver: Yes PT Frequency: 60-90 minutes per day Equipment Recommended: DME toileting, DME bathing PT Planned Treatment: Age appropriate play, Aquatic therapy, Assistive technology, Balance training, Basic activities of daily living, Bed mobility training, Body weight support treadmill training, Caregiver training, Community/Work reintegration, Compression wrapping, Desensitization program, Developmental skills training, Edema management, Electric modalities, Equipment training, Gait training, Group therapy, Home assessment/modification, Manual therapy, Mechanical modalities, Neuromuscular reeducation, Orthotic training, Pain management, Patient education, Positioning, Posture/Body mechanics training, Robotic assisted walking therapy, Spasticity Management, Seating, Stair training, Taping, Therapeutic activities, Therapeutic exercises, Thermal/Light modalities, Transfer training Duration: 3-4 weeks Subjective Pt received sitting edge of mat with handoff from primary OT. Grand daughter present for family training. Pt left seated in [facility] with grand daughter. RN aware of pt with more fatigue and lower BP today. Pain: Pain Assessment Pain Assessment: 0-10 (09/25/2024 1000) Pain Score: 0 (09/25/2024 1000) Pain Rating Scale (DVPRS): No pain (09/25/2024 1000) Vital Signs: Patient Vitals for the past 12 hrs: BP MAP (mmHg) Pulse Resp SpO2 09/26/24 0247 -- -- 88 18 100 % 09/26/24 0236 -- -- 82 18 98 % 09/25/24 2156 -- -- 94 18 100 % 09/25/24 2133 -- -- 90 18 96 % 09/25/24 2000 (!) 146/51 83 93 21 -- No data found. Objective 09/25/24 1000 General Family/Caregiver Present Yes Others Present grand daughter Time Calculation Start Time 1100 Stop Time 1200 Time Calculation (min) 60 min Pain Assessment Pain Assessment 0-10 Pain Score 0 Pain Rating Scale (DVPRS) 0 Therapeutic Activity Therapeutic Activity Time Entry 60 Therapeutic Activity 1 Family training with pt niece: Transfer from mat to [facility]: PT performing and demonstrating for niece. Niece performing safely with only need for verbal cues to wait for pt to understand the goal of th task. Therapeutic Activity 2 Car transfer training: Pt initially gets into [employer], transferring to his right with touching A. When time to get out of the car, pt requiring total A and max verbal cues due to exiting the car on his left side. Pt then trials transfer to Kelly. Pt again is able to transfer into the car with touching A. However, after trialing getting out on the left side 3 times, pt continues to sit and due to strength of Pt, PT is unable to do a dependent transfer to chair. Therefore, PT tries having pt scoot towards his R side in the vehcile so that he can get out of the vehicle on his right. Pt is able to scoot to his right with partial A and max verbal cueing, taking about 10 mins to complete this task. Pt is able to stand out of car with touching A, however pt continues to not initiate sit to [facility] despite max cueing. PT performs a total assist stand pivot transfer with pt, noting to require significantly more assist due to active resistance of this movement. Roll Left and Right Assistance Needed Physical assistance Physical Assistance Level 26%-50% CARE Score - Roll Left and Right 3 Lying to Sitting on Side of Bed Assistance Needed Physical assistance Physical Assistance Level 26%-50% CARE Score - Lying to Sitting on Side of Bed 3 Sit to Lying Assistance Needed Supervision Physical Assistance Level No physical assistance CARE Score - Sit to Lying 4 Transfers Transfer Yes Transfer 1 Technique 1 Stand pivot Level of Assistance 1 Partial/Mod assistance Trials/Comments 1 1 x with PT, 1 x with niece Transfer To/From [id number] Transfers 2 Technique 2 Stand pivot Level of Assistance 2 Partial/Mod assistance Trials/Comments 2 once into [place], once into kelly Transfer To/From Wheelchair;Car Assistive Devices And Adaptive Equipments No device Transfers 3 Technique 3 Stand pivot Level of Assistance 3 Dependent Trials/Comments 3 max verbal cues, increased agitation, trial transferring to L and scooting towards R side of care to exit to R, both time dependent Transfer To/From Car;Wheelchair Assistive Devices And Adaptive Equipments No device Chair/[id number] Transfer Assistance Needed Physical assistance Physical Assistance Level 26%-50% CARE Score - Chair/[id number] Transfer 3 Sit to Stand Assistance Needed Physical assistance Physical Assistance Level 25% or less CARE Score - Sit to Stand 3 Car Transfer Assistance Needed Physical assistance Physical Assistance Level Total assistance CARE Score - Car Transfer 1 Walk 10 Feet Assistance Needed Physical assistance Physical Assistance Level Total assistance Comment need for 2 2 POH CARE Score - Walk 10 Feet 1 Walk 50 Feet with Two Turns Assistance Needed Physical assistance Physical Assistance Level Total assistance Comment need for 2 POH CARE Score - Walk 50 Feet with Two Turns 1 Walk 150 Feet Assistance Needed Physical assistance Physical Assistance Level Total assistance Comment need for 2 POH CARE Score - Walk 150 Feet 1 Walking 10 Feet on Uneven Surfaces Reason if not Attempted Safety concerns CARE Score - Walking 10 Feet on Uneven Surfaces 88 1 Step (Curb) Reason if not Attempted Safety concerns CARE Score - 1 Step (Curb) 88 4 Steps Reason if not Attempted Safety concerns CARE Score - 4 Steps 88 12 Steps Reason if not Attempted Safety concerns CARE Score - 12 Steps 88 Wheel 50 Feet with Two Turns Assistance Needed Physical assistance Physical Assistance Level Total assistance CARE Score - Wheel 50 Feet with Two Turns 1 Type of Wheelchair/Scooter Manual Wheel 150 Feet Assistance Needed Physical assistance Physical Assistance Level Total assistance CARE Score - Wheel 150 Feet 1 Type of Wheelchair/Scooter Manual PT Assessment PT Assessment Pt noted to have decreased performance in functional mobility today, falling asleep frequently throughout session and with more confusion and verbal aggression. PT initiates family training with pt grand daughter, who demonstrates safety and understading with performing transfers. PT tries car transfers with pt, however pt requiring total A and with increased confusion and agitation, see therapeutic activity section for more detail. PT with concerns due to pt actively resisting transferring back into his C, requiring total A. Pt grand daughter also expresses concerns about the physical demand of transferring pt out of car. PT will likely trial car transfers again tomorrow in order to determine if pt fatigue and confusion was limiting him today. However, due to variability of pt performance medical transport is likely a safer option than transport in car at this time. Outcome Measures: [place] Balance Scale 1. Sitting to Standing: Able to stand using hands after several tries 2. Standing Unsupported: Unable to stand 30 seconds unsupported 3. Sitting with Back Unsupported but Feet Supported on Floor or on a Stool: Able to sit 2 minutes under supervision 4. Standing to Sitting: Uses back of legs against chair to control descent 5. Transfers: Able to transfer with verbal cueing and/or supervision 6. Standing Unsupported with Eyes Closed: Needs help to keep from falling 7. Standing Unsupported with Feet Together: Needs help to attain position and unable to hold for 15 seconds 8. Reach Forward with Outstretched Arm While Standing: Loses balance while trying/requires external support 9. Desktop Publishing Specialist Object from Floor from a Standing Position: Unable to try/needs assist to keep from losing balance or falling 10. Turning to Look Behind Over Left and Right Shoulders While Standing: Needs assist to keep from losing balance or falling 11. Turn 360 Degrees: Needs assistance while turning 12. Place Alternate Foot on Step or Stool While Standing Unsupported: Needs assistance to keep from falling/unable to try 13. Standing Unsupported One Foot in Front: Loses balance while stepping or standing 14. Standing on One Leg: Unable to try needs assist to prevent fall [place] Balance Score: 9 6 min walk 6 min walk: 0 10 meter walk (fast and self-selected) 10 meter walk (fast and self-selected): 0 Patient Education:Education Documentation Car Transfers, taught by Thelma Cuevas PT at 09/26/2024 7:12 AM. Learner: Family, Patient Readiness: Nonacceptance Method: Explanation, Demonstration Response: Needs Reinforcement Comment: Due to increased difficulty of car transfer with pt today, pt would benefit from additional practice. Family member expressing concern over physical toll of perfroming transfer Mobility, taught by Thelma Cuevas PT at 09/26/2024 7:12 AM.Learner: Family, Patient Readiness: Acceptance Method: Explanation, Demonstration Response: Verbalizes Understanding, Demonstrated Understanding Comment: Pt and grand daughter able to perform stand pivot transfer safely Mobility Training, taught by Thelma Cuevas PT at 09/26/2024 7:12 AM.Learner: Patient, Family Readiness: Acceptance Method: Explanation, Demonstration Response: Verbalizes Understanding, Demonstrated Understanding Comment: Pt and grand daughter able to perform stand pivot transfer safely Education CommentsNo comments found. Goals:Encounter Goals Encounter Goals (Active) Pt will perform all bed mobility independently (Not Progressing) Start: 09/06/24 Expected End: 09/27/24 Goal Note Pt requiring increased assistance 09/25, requiring partial A LTG: Pt will ambulate > 150 ft with SPV and LRAD (Not Progressing) Start: 09/06/24 Expected End: 09/27/24 Goal Note Pt continuing to need 2 POH with ambulation for safety concerns due tocognitive and visual deficits LTG: Pt will improve BBS to 36/56 to indicate decreased risk for falls (Not Progressing) Start: 09/06/24 Expected End: 09/27/24 Goal Note Continues to score 9/56 STG: Pt will improve BBS to >13/56 to indicate decreased risk for falls (IE5/56, MDC 6.9 pts) (Not Progressing) Start: 09/06/24 Expected End: 09/27/24 Goal Note Continues to score 9/56 Within 2 weeks of starting therapy, the patient and/or family/caregiver will demonstrate independence and be compliant in a written HEP in order to maximize gains made during therapy. (Progressing) Start: 09/06/24 Expected End: 09/27/24 Goal Note Pt and family will be provided with HEP and DME today LTG: Pt will perform stand step transfers with set-up assist and LRAD (Not Progressing) Start: 09/06/24 Expected End: 09/27/24 Goal Note Pt continuing to require partial A today STG: Pt will perform stand step transfers with touch A and LRAD (Progressing) Start: 09/06/24 Expected End: 09/27/24 Goal Note Pt can occasionally perform transfer with setup and touch A, but limited due to variability in performance Encounter Goals (Resolved) STG: Assess gait as appropriate (Completed) Start: 09/06/24 Expected End: 09/13/24 Resolved: 09/12/24 Goal Note Gait with RW and 2 POH Thelma Cuevas PT GER WIRELESS * Vannesa Stuart LCSW - 09/25/2024 10:29 AM MANAGER WIRELESS SW met with patient's grand daughter Karlee at bedside who came today for family training. Patient's grand daughter will be the primary caregiver at discharge. Patient's daughter was also provided with additional private caregiver resources. Vannesa Narciso FIRE HYDRANT OPERATOR GER WIRELESS * Mikayla Guadalupe, OT - 09/25/2024 10:00 AM MANAGER WIRELESS Treatment Session Note Patient Name: Chaitanya Tena Today's Date: 09/25/2024 Preferred Language: Tanzanian Assessment & Plan Assessment: OT Assessment: Pt engaged in facility dog cotx as well as family training with niece. Pt demo'd variable attention and vision throughout the session which affected assist levels for rolling from touch A to mod A. Plan: Treatment Plan/Goals Established with Patient/Caregiver: Yes Treatment Interventions: ADL retraining, Cognitive reorientation, Aquatic therapy, Compensatory technique education, Endurance training, Equipment evaluation/education, Functional transfer training, Fine motor coordination activities, Neuromuscular reeducation, Orthotic/Orthotic management, Patient/family training, Positioning, UE strengthening/ROM, Visual perceptual retraining OT Plan: Skilled OT OT Frequency: 5-7 times per week OT Planned Treatments: Work simplification, Discharge, Activities of Daily Living, Aquatics, Balance training, Caregiver training, Casting, Cognitive training, Coordination, Developmental skills training, Discharge/Discontinue OT treatment, Dry needling, Edema managment, Electric modalities, Energy conservation training, Equipment assessment, Equipment training, Group therapy, Home program, Joint protection, Manual therapy, Mobility training, Neuromuscular reeducation, Orthotic, Pain management, Patient education, Prevocational training, Safety education, Seating/Positioning, Sensory integration, Spasticity Managment, Splinting, Taping, Therapeutic activities, Therapeutic exercises, Thermal modalities, Visual and perceptual training OT Duration: 3-4 weeks Subjective Pain: Pain Assessment Pain Assessment: DVPRS (09/25/2024899) Pain Rating Scale (DVPRS): No pain (09/25/2024899) Vital Signs: Patient Vitals for the past 12 hrs: BP MAP (mmHg) Pulse Resp SpO2 09/25/24 1116 (!) 98/51 -- -- -- -- 09/25/24 0933 -- -- 80 -- -- 09/25/24 0713 99/71 80 100 18 91 % 09/25/24 0656 -- -- 91 16 100 % 09/25/24 0643 -- -- 89 15 95 % 09/25/24 0300 -- -- 95 12 93 % 09/25/24 0249 -- -- 91 12 92 % No data found. Objective 09/25/24 0900 General Family/Caregiver Present Yes Others Present Niece Time Calculation Start Time 1000 Stop Time 1100 Time Calculation (min) 60 min Co-Treatment Co-Treatment Yes Co-Treatment With Facility System Support Developer Primary Therapist Occupational Therapy Pain Assessment Pain Assessment DVPRS Pain Rating Scale (DVPRS) 0 Bed Mobility Bed Mobility Yes Bed Mobility 1 Level of Assistance 1 Supervision/touching assistance Bed Mobility To/From Sitting EOB to supine Assistive Devices And Adaptive Equipments No device Bed Mobility 2 Level of Assistance 2 Partial/Mod assistance Bed Mobility To/From Supine to sit on EOB Assistive Devices And Adaptive Equipments No device Bed Mobility 3 Level of Assistance 3 Partial/Mod assistance Bed Mobility To/From Roll left/right Assistive Devices And Adaptive Equipments No device Transfers Transfer Yes Transfer 1 Technique 1 Stand pivot Level of Assistance 1 Partial/Mod assistance Transfer To/From Mat;Wheelchair Assistive Devices And Adaptive Equipments No device Therapeutic Activity Therapeutic Activity 1 Forward excursions at EOM - reaching forward and outside MARIO for facility dog Therapeutic Activity 2 L sided leaning and attention using facility dog - utilizing L hand to help with brushing the dog Therapeutic Activity 3 L sided reaching - flex/ext while in sidelying position OT Assessment OT Assessment Pt engaged in facility dog cotx as well as family training with niece. Pt demo'd variable attention and vision throughout the session which affected assist levels for rolling from touch A to mod A. Patient Education: Education Documentation Mobility Training, taught by Mikayla Guadalupe OT at 09/25/2024 9:00 AM. Learner: Family Readiness: Acceptance Method: Explanation, Demonstration Response: Verbalizes Understanding, Demonstrated Understanding Comment: rolling at mat level Durable Medical Equipment, taught by Mikayla Guadalupe OT at 09/25/2024 9:00 AM. Learner: Family Readiness: Acceptance Method: Explanation, Demonstration Response: Verbalizes Understanding, Demonstrated Understanding Comment: Break down and setup of upright manual w/c - niece demo'd understanding by performing. Mobility Training, taught by Mikayla Guadalupe OT at 09/25/2024 9:00 AM. Learner: Family Readiness: Acceptance Method: Explanation Response: Verbalizes Understanding ADL Training, taught by Mikayla Guadalupe OT at 09/25/2024 9:00 AM. Learner: Family Readiness: Acceptance Method: Explanation Response: Verbalizes Understanding Occupational Therapy Plan of Care, taught by Mikayla Guadalupe OT at 09/25/2024 9:00 AM. Learner: Family Readiness: Acceptance Method: Explanation Response: Verbalizes Understanding Education Comments No comments found. Goals: Encounter Goals Encounter Goals (Active) Patient will perform grooming with minimum assist for improved independence with ADLs (Progressing) Start: 09/06/24 Expected End: 09/27/24 Patient will perform feeding with minimum assist for improved independence with ADLs (Progressing) Start: 09/06/24 Expected End: 09/27/24 Patient will perform upper body dressing with minimum assist to improve independence with dressing. (Progressing) Start: 09/06/24 Expected End: 09/27/24 Patient will perform lower body dressing with moderate assist to improve independence with dressing. (Progressing) Start: 09/06/24 Expected End: 09/27/24 Pt and/or caregiver(s) will have all appropriate DME, recommendations, or completed prescriptions to maximize pt's safety and independence at discharge. (Progressing) Start: 09/06/24 Expected End: 09/27/24 Goal Note W/c clinic completed; OT finishing script Patient and/or caregivers will verbalize understanding of home program including safety tips, equipment instructions, and home exercises. (Progressing) Start: 09/06/24 Expected End: 09/27/24 Encounter Goals (Resolved) Patient will participate in forced use activities using the affected upper extremity with minimum assistance to inhibit abnormal movement patterns. (Completed) Start: 09/06/24 Expected End: 09/27/24 Resolved: 09/25/24 Patient will incoporate their affected upper extremity with minimal assist/cues during functional task performance. (Completed) Start: 09/06/24 Expected End: 09/27/24 Resolved: 09/25/24 Patient will participate in seating and mobility trials to improve posture, reduce tone, and prevent secondary complications. (Completed) Start: 09/06/24 Expected End: 09/27/24 Resolved: 09/25/24 Mikayla Guadalupe OT GER WIRELESS GER WIRELESS GER WIRELESS * Tiana Slaughter OT - 09/25/2024 10:00 AM MANAGER WIRELESS Facility Dog Facility Dog Note Patient Name: Chaitanya Tena Date of Admission: 09/05/2024 Today's Date: 09/25/2024 Preferred Language: Tanzanian 09/25/24 1001 Time Calculation Start Time 1000 Stop Time 1100 Time Calculation (min) 60 min General Reason for Facility Dog Consult Improved attention;Increased participation in therapies/treatment Intervention Type Co-treat Co-Treatment With Occupational Therapy Intervention Provided to Patient Chart Review Completed Yes Pain Assessment Pain Assessment 0-10 Pain Score 0 Intervention Individuals Present Other (Comment) (granddaughter) Goal of Facility Dog Intervention Participation/motivation Participation/Motivation Intervention Cognitive skills;Fine motor activities;Gross motor activities Patient participated in reaching outside of MARIO while seated EOM to engage in petting and brushing facility dog. Patient engaged in a few repetitions of throwing ball for facility dog, and also in "hiding" treats in cones. Patient's variable ability to maintain attention as well as impaired visual perceptual skills limiting factor for participation, however patient very clearly enjoys working with [employer]. Psychosocial/emotional Support Interventions Social engagement;Normalize hospital environment Patient/Family Involvement granddaughter present and engaged throughout treatment session Education role/goal of facility dog Post-Intervention Assessment Patient's Response to Facility Dog Intervention Actively engaged Plan Plan Future visits recommended as able - patient scheduled for potential discharge later this week, so will see as able. Future Visit Types Co-Treatment Future Visits Co-Treatment With Occupational Therapy Recommended Session Duration Other (Comment) (30-45 min) Tiana Slaughter OT [facility] Facility Dog [place] GER WIRELESS * Paris Lozada MD - 09/24/2024 9:06 AM MANAGER WIRELESS Physical Medicine & Rehabilitation Progress Note Reason for Admission: No chief complaint on file. HPI: No overnight events No nursing concerns Patient denies f/c/n/v Pain controlled. Bladder Continence Status: Did not void, Bowel Continence Status: Incontinent movement Intake/Output Summary (Last 24 hours) at 09/24/2024 0906 Last data filed at 09/23/2024 1900 Gross per 24 hour Intake -- Output 1 ml Net -1 ml @MEDLIST@ Objective: Vitals: 09/24/24 0737 BP: 154/60 Pulse: 87 Resp: 14 Temp: 36.9 ?C (98.4 ?F) SpO2: General: no distress CV: no peripheral cyanosis Pulm: normal respiratory effort WBC Date/Time Value Ref Range Status 09/18/2024 05:29 AM 8.30 3.92-.10.07 10*3/uL Final HgbDate/Time Value Ref Range Status 09/18/2024 05:29 AM 11.9 (L) 12.4 - 17.4 g/dL Final POC A Hct (calc)Date/Time Value Ref Range Status 08/20/2024 12:25 AM 42.0 40.1 - 51.0 % Final HctDate/Time Value Ref Range Status 09/18/2024 05:29 AM 37.5 37.1 - 50.8 % Final Plt CountDate/Time Value Ref Range Status 09/18/2024 05:29 AM 310 160 - 381 10*3/uL Final BUNDate/Time Value Ref Range Status 09/18/2024 05:29 AM 17 9 - 23 mg/dL Final POC A GluDate/Time Value Ref Range Status 08/20/2024 12:25 AM 221 (H) 70 - 99 mg/dL Final Glucose LvlDate/Time Value Ref Range Status 09/18/2024 05:29 AM 62 (L) 70 - 99 mg/dL Final Comment: Adult reference range values reflect the clinical guidelines of the [place] [employer]. POC GluDate/Time Value Ref Range Status 09/24/2024 07:41 AM 114 (H) 70 - 99 mg/dL Final POC A KDate/Time Value Ref Range Status 08/20/2024 12:25 AM 4.1 3.5 - 5.1 mEq/L Final Potassium LvlDate/Time Value Ref Range Status 09/18/2024 05:29 AM 4.6 (H) 3.4 - 4.5 mEq/L Final POC A NaDate/Time Value Ref Range Status 08/20/2024 12:25 AM 129 (L) 135 - 145 mEq/L Final Sodium LvlDate/Time Value Ref Range Status 09/18/2024 05:29 AM 140 136 - 145 mEq/L Final CO2 LvlDate/Time Value Ref Range Status 09/18/2024 05:29 AM 28.0 20.0 - 31.0 mEq/L Final POC ChlorideDate/Time Value Ref Range Status 08/20/2024 12:25 AM 95 95 - 109 mEq/L Final Chloride LvlDate/Time Value Ref Range Status 09/18/2024 05:29 AM 104 98 - 107 mEq/L Final FL esophagus barium swallow w video and speechResult Date: 09/22/2024 Impression: No deep laryngeal penetration or aspiration with liquids or solids ELECTRONICALLY SIGNED BY FERNANDO BLOCK MD ON 09/22/2024 AT 13:43. ECG 12 leadResult Date: 09/11/2024 Impression: SINUS RHYTHM WITH FREQUENT PREMATURE VENTRICULAR COMPLEX(ES) LOW QRS VOLTAGE -- CONSIDER PULMONARY DISEASE, PERICARDIAL EFFUSION, OR NORMAL VARIANT SEPTAL INFARCTION AGE UNDETERMINED ABNORMAL ECG WHEN COMPARED WITH ECG OF 30-AUG-2024 17:21, PREMATURE VENTRICULAR COMPLEX(ES) ARE NOW PRESENT Confirmed by Bernie Seth ([id number]) on 09/11/2024 1:05:[address] BRAIN WO IV CONTRASTResult Date: 09/08/2024 Impression: Redemonstrated recent right MCA distribution infarct with unchanged small regions of petechial hemorrhage versus early cortical laminar necrosis. ELECTRONICALLY SIGNED BY SOLEDAD GARCIA MD ON 09/08/2024 AT 13:28. CT BRAIN WO IV CONTRASTResult Date: 09/06/2024 Impression: 1. Redemonstrated recent right frontal lobe infarction with minimal petechial hemorrhage, grade 1 hemorrhagic transformation. No prema hematoma conversion. Findings are stable to minimally progressed. 2. Old infarct of the left parietal lobe. 3. No midline shift or mass effect. ELECTRONICALLY SIGNED BY FERNANDO BLOCK MD ON 09/06/2024 AT 13:22. XR abdomen 1 viewResult Date: 09/06/2024 Impression: Moderate retained fecal matter throughout the colon. ELECTRONICALLY SIGNED BY VEE MAYERS MD ON 09/06/2024 AT 09:08. Assessment/Plan:ICD-10-CM 1. 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 Hemiparesis affecting left side as late effect of stroke (CMS/HCC) (HCC) I69.354 Ambulatory referral to Home Health 3. Other abnormalities of gait and mobility R26.89 Ambulatory referral to Home Health 4. Cognitive communication deficit R41.841 Ambulatory referral to Home Health 5. Other hyperlipidemia E78.49 6. Other sleep disorders G47.8 7. Neurogenic bowel K59.2 8. 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 Diabetes mellitus due to underlying condition with hyperglycemia, without long-term current use of insulin ([facility]) E08.65 10. Primary hypertension I10 Ambulatory referral to Home Health 11. Intracranial atherosclerosis I67.2 12. 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 ([facility]) I63.311 Ambulatory referral to Home Health 13. Uncontrolled type 2 diabetes mellitus with hyperglycemia ([facility]) E11.65 Ambulatory referral to Home Health 14. Cerebrovascular accident (CVA) due to embolism of right middle cerebral artery ([facility]) I63.411 Ambulatory referral to Neurology 15. Acute ischemic stroke ([facility]) I63.9 Ambulatory referral to Neurology New Medications Ordered This Visit Medications sodium chloride (NS) 0.9 % flush 10 mL midazolam (Versed) injection 5 mg levETIRAcetam (Keppra) injection 1,500 mg magnesium hydroxide (Milk of Magnesia) 400 MG/5ML suspension 30 mL bisacodyl (Dulcolax) suppository 10 mg amLODIPine (Norvasc) tablet 10 mg aspirin chewable tablet 324 mg atorvastatin (Lipitor) tablet 80 mg Docusate Sodium oral liquid 100 mg heparin injection 5,000 Units ipratropium-albuterol (Duo-Neb) 0.5-2.5 mg/3 mL nebulizer solution 3 mL losartan (Cozaar) tablet 75 mg melatonin tablet 3 mg polyethylene glycol (PEG) 3350 (Miralax) packet 17 g sennosides (Senokot) tablet 8.6 mg dextrose 50 % solution 12.5 g glucagon injection 1 mg insulin lispro (HumaLOG, Admelog) injection 3-12 Units Correction Insulin Dosing: (DO NOT CHANGE DEFAULT SELECTION/VALUES): Medium BG < 70 instructions:: Follow Hypoglycemia Orders BG 70-149 instructions:: No Dose Needed BG 150-199:: 3 BG 200-249:: 6 BG 250-299:: 9 BG >/= 300:: 12 BG > 300 instructions:: Contact Provider clopidogrel (Plavix) tablet 75 mg Boost Glucose Control liquid 237 mL influenza vac split high-dose (Fluzone High-Dose) syringe 0.5 mL mirtazapine (Remeron) tablet 15 mg caffeine tablet 100 mg bisacodyl (Dulcolax) suppository 10 mg modafinil (Provigil) tablet 100 mg insulin glargine (Lantus) pen 22 Units DVT ppx:Last Anticoag Admin heparin injection 5,000 Units Given 5,000 Units at 0559 Frequency: Every 8 hours There are additional administrations since 09/21/24905 that are not shown.No unadministered anticoagulant orders found. No acute issues. Resume comprehensive therapies. Resume treatment plan as specified above. ---Thank you for allowing me to participate in the care of this patient Leeroy Lozada MD, [facility] GER WIRELESS * Jenny Jernigan MD - 09/24/2024 7:24 AM MANAGER WIRELESS Subjective No emesis or fever overnight. Objective Last Recorded Vitals Blood pressure (!) 116/57, pulse 88, temperature 36.8 ?C (98.3 ?F), resp. rate 17, height 1.702 m (5' 7"), weight 82.3 kg (181 lb 7 oz), SpO2 97%. Physical Exam: GEN: NAD, appears stated age HEAD: normocephalic atraumatic EENT: PERRLA, no scleral icterus, trachea is midline, neck is supple CV: Regular rate and rhythm, no murmurs, no gallops or rubs, no extremity edema, intact peripheral pulses PULM: lungs clear to auscultation, no accessory muscle use ABD: Soft, non distended, non tender, bowel sounds present NEURO; opens eyes to touch but went back to sleep and did not answer any questions SKIN: warm to palpation, no abnormal discoloration Current Active Medications [Held by provider] amLODIPine, 10 mg, Oral, Daily aspirin, 324 mg, Nasogastric, Daily atorvastatin, 80 mg, Oral, Daily bisacodyl, 10 mg, Rectal, Every evening Boost Glucose Control, 1 Container, Oral, TID with meals caffeine, 100 mg, Oral, BID Docusate Sodium, 100 mg, Per G Tube, q12h heparin, 5,000 Units, Subcutaneous, q8h influenza vaccine, 0.5 mL, Intramuscular, During hospitalization insulin glargine, 22 Units, Subcutaneous, Every evening ipratropium-albuterol, 3 mL, Nebulization, q6h losartan, 75 mg, Oral, Daily melatonin, 3 mg, Per G Tube, Nightly mirtazapine, 15 mg, Oral, Nightly modafinil, 100 mg, Oral, BID polyethylene glycol (PEG) 3350, 17 g, Per G Tube, q12h sennosides, 1 tablet, Oral, Nightly PRN medications: bisacodyl, dextrose, glucagon, insulin lispro, levETIRAcetam, magnesium hydroxide, midazolam, sodium chloride Lab ResultsResults from last 7 days Lab Units 09/18/24 0529 WBC 10*3/uL 8.30 HEMOGLOBIN g/dL 11.9* HEMATOCRIT % 37.5 PLATELETS 10*3/uL 310 Results from last 7 daysLab Units 09/23/24 1614 09/18/24 0724 09/18/24 0529 SODIUM mEq/L -- -- 140 POTASSIUM mEq/L -- -- 4.6* CHLORIDE mEq/L -- -- 104 CO2 mEq/L -- -- 28.0 BUN mg/dL -- -- 17 CREATININE mg/dL -- -- 1.07 GLUCOSE mg/dL -- -- 62* POC GLUCOSE mg/dL 153* < > -- CALCIUM mg/dL -- -- 9.6 < > = values in this interval not displayed. AssessmentChaitanya Tena is a 78 y.o. 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 His hospital course was complicated by bacterial pneumonia for which he completed course of antimicrobials. He is now here for comprehensive rehabilitation. Assessment & Plan Right MCA stroke:Atorvastatin, aspirin Patient completed 3-week course of Plavix On modafinil Orthostasis:Resolved Previous amlodipine has been on hold Type 2 diabetes mellitus:Better glycemic control with glargine 22 units qhs Correction dose insulin with Accu-Cheks ACHS Hypertension:Continue losartan 75 mg daily VTE prophylaxis: heparin - 5000 units/mL GER WIRELESS * Kiki Delgado, OT - 09/23/2024 4:00 PM MANAGER WIRELESS Treatment Session Note Patient Name: Chaitanya Tena Today's Date: 09/23/2024 Preferred Language: Tanzanian Assessment & Plan Assessment: Evaluation/Treatment Tolerance: Patient tolerated treatment well Plan: Treatment Plan/Goals Established with Patient/Caregiver: Yes Treatment Interventions: ADL retraining, Cognitive reorientation, Aquatic therapy, Compensatory technique education, Endurance training, Equipment evaluation/education, Functional transfer training, Fine motor coordination activities, Neuromuscular reeducation, Orthotic/Orthotic management, Patient/family training, Positioning, UE strengthening/ROM, Visual perceptual retraining OT Plan: Skilled OT OT Frequency: 5-7 times per week OT Planned Treatments: Work simplification, Discharge, Activities of Daily Living, Aquatics, Balance training, Caregiver training, Casting, Cognitive training, Coordination, Developmental skills training, Discharge/Discontinue OT treatment, Dry needling, Edema managment, Electric modalities, Energy conservation training, Equipment assessment, Equipment training, Group therapy, Home program, Joint protection, Manual therapy, Mobility training, Neuromuscular reeducation, Orthotic, Pain management, Patient education, Prevocational training, Safety education, Seating/Positioning, Sensory integration, Spasticity Managment, Splinting, Taping, Therapeutic activities, Therapeutic exercises, Thermal modalities, Visual and perceptual training OT Duration: 3-4 weeks Subjective Pain: Pain Assessment Pain Assessment: 0-10 (09/23/20241599) Pain Score: 0 (09/23/20241599) Pain Rating Scale (DVPRS): No pain (09/23/20241599) David-Cano FACES Pain Rating: No hurt (09/23/20241599) Vital Signs: Patient Vitals for the past 12 hrs: BP MAP (mmHg) Pulse Resp SpO2 09/23/24 1751 (!) 123/55 -- -- -- -- 09/23/24 1413 (!) 132/56 81 -- -- -- 09/23/24 1413 -- -- 90 -- -- 09/23/24 1226 -- -- 85 -- -- 09/23/24 1211 -- -- 85 16 97 % 09/23/24 1201 -- -- 84 16 96 % 09/23/24 0717 -- -- 92 -- -- 09/23/24 0715 127/67 87 -- -- -- 09/23/24 0632 -- -- 94 18 97 % No data found. Objective 09/23/24 1600 Time Calculation Start Time 1600 Stop Time 1700 Time Calculation (min) 60 min Pain Assessment Pain Assessment 0-10 Pain Score 0 Pain Rating Scale (DVPRS) 0 David-Cano FACES Pain Rating 0 Footwear Dressing Activity Component(s) Shoes Dressing Location/Position In bed Level of Assistance Dependent Putting On/Taking Off Footwear Assistance Needed Physical assistance Physical Assistance Level Total assistance CARE Score - Putting On/Taking Off Footwear 1 Toileting Activity Component(s) Managing clothing before;Managing clothing after;Managing incontinence hygiene/products;Perineal hygiene, front;Perineal hygiene, back Level of Assistance Dependent Toileting Position/Set Up In bed Toileting Hygiene Assistance Needed Physical assistance Physical Assistance Level Total assistance CARE Score - Toileting Hygiene 1 Bed Mobility 1 Level of Assistance 1 Substantial/Max assistance Bed Mobility To/From Supine to sit on EOB Assistive Devices And Adaptive Equipments Bed rail Bed Mobility 2 Level of Assistance 2 Substantial/Max assistance Bed Mobility To/From Sitting EOB to supine Transfer 1 Technique 1 Stand pivot Level of Assistance 1 Substantial/Max assistance Transfer To/From Bed;Wheelchair Transfers 2 Technique 2 Stand pivot Level of Assistance 2 Partial/Mod assistance Transfer To/From Wheelchair;Bed Transfers 3 Level of Assistance 3 Supervision/touching assistance (sit to stand x 3 repetitions) Transfer To/From Other (specify) (sit to stand) Therapeutic Exercise Therapeutic Exercise Activity 1 Pt performs BUE strengthening using arm bike 10 min with acewrap on LUE seated in w.c Position 1 Seated OT Assessment Evaluation/Treatment Tolerance Patient tolerated treatment well Patient Education: Education Documentation No documentation found. Education Comments No comments found. Goals: Encounter Goals Encounter Goals (Active) Patient will perform grooming with minimum assist for improved independence with ADLs (Progressing) Start: 09/06/24 Expected End: 09/27/24 Patient will perform feeding with minimum assist for improved independence with ADLs (Progressing) Start: 09/06/24 Expected End: 09/27/24 Patient will perform upper body dressing with minimum assist to improve independence with dressing. (Progressing) Start: 09/06/24 Expected End: 09/27/24 Patient will perform lower body dressing with moderate assist to improve independence with dressing. (Progressing) Start: 09/06/24 Expected End: 09/27/24 Pt and/or caregiver(s) will have all appropriate DME, recommendations, or completed prescriptions to maximize pt's safety and independence at discharge. (Progressing) Start: 09/06/24 Expected End: 09/27/24 Patient and/or caregivers will verbalize understanding of home program including safety tips, equipment instructions, and home exercises. (Progressing) Start: 09/06/24 Expected End: 09/27/24 Patient will participate in forced use activities using the affected upper extremity with minimum assistance to inhibit abnormal movement patterns. (Progressing) Start: 09/06/24 Expected End: 09/27/24 Patient will incoporate their affected upper extremity with minimal assist/cues during functional task performance. (Progressing) Start: 09/06/24 Expected End: 09/27/24 Patient will participate in seating and mobility trials to improve posture, reduce tone, and prevent secondary complications. (Progressing) Start: 09/06/24 Expected End: 09/27/24 Kiki Delgado OT GER WIRELESS * Thelma Cuevas, PT - 09/23/2024 9:00 AM MANAGER WIRELESS Treatment Session Note Patient Name: Chaitanya Tena Today's Date: 09/23/2024 Preferred Language: Tanzanian Assessment & Plan Assessment: PT Assessment: Pt continues to be limited due to neglect vs cognitive deficits vs visual deficits impacting all functional mobility. Pt continues to be unsafe to ambulate with only one person due to confusion and impulsive sitting in addition to inability to find mat/ MWC despite objects being directly in front of him. Pt is able to demonstrate safe transfer to the shower and overall demonstrates improved mobility with transfers, only requiring svn and incidental touching. Plan: Treatment Plan/Goals Established with Patient/Caregiver: Yes PT Frequency: 60-90 minutes per day Equipment Recommended: DME toileting, DME bathing PT Planned Treatment: Age appropriate play, Aquatic therapy, Assistive technology, Balance training, Basic activities of daily living, Bed mobility training, Body weight support treadmill training, Caregiver training, Community/Work reintegration, Compression wrapping, Desensitization program, Developmental skills training, Edema management, Electric modalities, Equipment training, Gait training, Group therapy, Home assessment/modification, Manual therapy, Mechanical modalities, Neuromuscular reeducation, Orthotic training, Pain management, Patient education, Positioning, Posture/Body mechanics training, Robotic assisted walking therapy, Spasticity Management, Seating, Stair training, Taping, Therapeutic activities, Therapeutic exercises, Thermal/Light modalities, Transfer training Duration: 3-4 weeks Subjective Pt received sitting in [facility], agreeable to therapy and with slightly improved clarity of speech this AM. Pt left seated in [facility] with all needs in reach. Pain: Pain Assessment Pain Assessment: 0-10 (09/23/2024899) Pain Score: 0 (09/23/2024899) Pain Rating Scale (DVPRS): No pain (09/23/2024899) Vital Signs: Patient Vitals for the past 12 hrs: BP MAP (mmHg) Pulse Resp SpO2 09/23/24 1211 -- -- 85 16 97 % 09/23/24 1201 -- -- 84 16 96 % 09/23/24 0717 -- -- 92 -- -- 09/23/24 0715 127/67 87 -- -- -- 09/23/24 0632 -- -- 94 18 97 % 09/23/24 0621 -- -- 92 17 95 % 09/23/24 0620 -- -- 92 17 95 % 09/23/24 0132 -- -- 84 18 96 % No data found. Objective 09/23/24 0900 Time Calculation Start Time 0900 Stop Time 0955 Time Calculation (min) 55 min Pain Assessment Pain Assessment 0-10 Pain Score 0 Pain Rating Scale (DVPRS) 0 Therapeutic Exercise Therapeutic Exercise Time Entry 10 Therapeutic Exercise Activity 1 sit to stand 2 x 10 with touching A (for analysis for addition to home program) Position 1 Standing Therapeutic Activity Therapeutic Activity Time Entry 25 Therapeutic Activity 1 trialing transfers utilizing TTB into shower Therapeutic Activity 2 transfers throughout therapy session Transfers Transfer Yes Transfer 1 Technique 1 Stand pivot Level of Assistance 1 Supervision/touching assistance Transfer To/From Wheelchair;Mat Assistive Devices And Adaptive Equipments No device Transfers 2 Level of Assistance 2 Supervision/touching assistance Trials/Comments 2 multiple times throughout session Transfer To/From [id number] Assistive Devices And Adaptive Equipments No device Transfers 3 Technique 3 Stand step Level of Assistance 3 Partial/Mod assistance Transfer To/From Wheelchair;Tub /Shower;Other (specify) (to TTB) Assistive Devices And Adaptive Equipments No device Chair/Dgf-ly-Axnct Transfer Assistance Needed Incidental touching;Supervision Physical Assistance Level No physical assistance CARE Score - Chair/[id number]-Tfhdc Transfer 4 Sit to Stand Assistance Needed Supervision;Incidental touching Physical Assistance Level No physical assistance Comment no device CARE Score - Sit to Stand 4 Gait Training Gait Training Time Entry 8 Gait Training Activity Yes Gait Training Activity 1 Distance (enter in feet) 1 x 50 feet Assistive Devices And Adaptive Equipments Walker, front-wheeled Level of Assistance 1 Partial/Mod assistance Gait Training Activity 1 Comment remainder of gait deferred due to gait being unsafe with only one person - pt requires MAX verbal cueing to locate mat and safely sit Surface And Method Over ground;Indoor;Even surface General Gait Deviations Shuffling;Decreased kamila Walk 10 Feet Assistance Needed Physical assistance Physical Assistance Level 51%-75% Comment RW CARE Score - Walk 10 Feet 2 Walk 50 Feet with Two Turns Assistance Needed Physical assistance Physical Assistance Level Total assistance Comment RW CARE Score - Walk 50 Feet with Two Turns 1 Balance/Neuromuscular Re-Education Neuromuscular Re-Education Time Entry 12 Activity Component(s) 1 Standing;Static Assistive Devices And Adaptive Equipments Other (specify) (hands on functional table) Balance/Neuromuscular Re-Education Activity 1 pt standing in front of functonal table tyring to play "spot it" with max VC from PT Wheel 50 Feet with Two Turns Assistance Needed Physical assistance Physical Assistance Level Total assistance CARE Score - Wheel 50 Feet with Two Turns 1 Type of Wheelchair/Scooter Manual Wheel 150 Feet Assistance Needed Physical assistance Physical Assistance Level Total assistance CARE Score - Wheel 150 Feet 1 Type of Wheelchair/Scooter Manual PT Assessment PT Assessment Pt continues to be limited due to neglect vs cognitive deficits vs visual deficits impacting all functional mobility. Pt continues to be unsafe to ambulate with only one person due to confusion and impulsive sitting in addition to inability to find mat/ MWC despite objects being directly in front of him. Pt is able to demonstrate safe transfer to the shower and overall demonstrates improved mobility with transfers, only requiring svn and incidental touching. Patient Education: Education Documentation No documentation found. Education Comments No comments found. Goals: Encounter Goals Encounter Goals (Active) Pt will perform all bed mobility independently (Progressing) Start: 09/06/24 Expected End: 09/27/24 Goal Note Performing with verbal cues and SVN LTG: Pt will ambulate > 150 ft with SPV and LRAD (Progressing) Start: 09/06/24 Expected End: 09/27/24 Goal Note Continuing to trial ambulation with and without RW LTG: Pt will improve BBS to 36/56 to indicate decreased risk for falls (Progressing) Start: 09/06/24 Expected End: 09/27/24 Goal Note 09/18: scores 9/36 STG: Pt will improve BBS to >13/56 to indicate decreased risk for falls (IE5/56, MDC 6.9 pts) (Progressing) Start: 09/06/24 Expected End: 09/27/24 Goal Note 09/18: scores 9/36 Within 2 weeks of starting therapy, the patient and/or family/caregiver will demonstrate independence and be compliant in a written HEP in order to maximize gains made during therapy. (Progressing) Start: 09/06/24 Expected End: 09/27/24 Goal Note Continuing to assess for appropriate HEP LTG: Pt will perform stand step transfers with set-up assist and LRAD (Progressing) Start: 09/06/24 Expected End: 09/27/24 Goal Note Performing with partial A STG: Pt will perform stand step transfers with touch A and LRAD (Progressing) Start: 09/06/24 Expected End: 09/27/24 Goal Note Performing with partial A Encounter Goals (Resolved) STG: Assess gait as appropriate (Completed) Start: 09/06/24 Expected End: 09/13/24 Resolved: 09/12/24 Goal Note Gait with RW and 2 POH Thelma Cuevas PT [facility]ER [facility] * Paris Lozada MD - 09/23/2024 8:29 AM MANAGER WIRELESS Physical Medicine & Rehabilitation Progress Note Reason for Admission: No chief complaint on file. HPI: No overnight events No nursing concerns Patient denies f/c/n/v Pain controlled. Bladder Continence Status: Non-stress incontinence, Bowel Continence Status: Incontinent movement No intake or output data in the 24 hours ending 09/23/24 0829 @MEDLIST@ Objective: Vitals: 09/23/2417 BP: Pulse: Resp: Temp: 36.2 ?C (97.2 ?F) SpO2: General: no distress CV: no peripheral cyanosis Pulm: normal respiratory effort WBC Date/Time Value Ref Range Status 09/18/2024 05:29 AM 8.30 3.92-.10.07 10*3/uL Final HgbDate/Time Value Ref Range Status 09/18/2024 05:29 AM 11.9 (L) 12.4 - 17.4 g/dL Final POC A Hct (calc)Date/Time Value Ref Range Status 08/20/2024 12:25 AM 42.0 40.1 - 51.0 % Final HctDate/Time Value Ref Range Status 09/18/2024 05:29 AM 37.5 37.1 - 50.8 % Final Plt CountDate/Time Value Ref Range Status 09/18/2024 05:29 AM 310 160 - 381 10*3/uL Final BUNDate/Time Value Ref Range Status 09/18/2024 05:29 AM 17 9 - 23 mg/dL Final POC A GluDate/Time Value Ref Range Status 08/20/2024 12:25 AM 221 (H) 70 - 99 mg/dL Final Glucose LvlDate/Time Value Ref Range Status 09/18/2024 05:29 AM 62 (L) 70 - 99 mg/dL Final Comment: Adult reference range values reflect the clinical guidelines of the [place] [employer]. POC GluDate/Time Value Ref Range Status 09/23/2024 07:19 AM 107 (H) 70 - 99 mg/dL Final POC A KDate/Time Value Ref Range Status 08/20/2024 12:25 AM 4.1 3.5 - 5.1 mEq/L Final Potassium LvlDate/Time Value Ref Range Status 09/18/2024 05:29 AM 4.6 (H) 3.4 - 4.5 mEq/L Final POC A NaDate/Time Value Ref Range Status 08/20/2024 12:25 AM 129 (L) 135 - 145 mEq/L Final Sodium LvlDate/Time Value Ref Range Status 09/18/2024 05:29 AM 140 136 - 145 mEq/L Final CO2 LvlDate/Time Value Ref Range Status 09/18/2024 05:29 AM 28.0 20.0 - 31.0 mEq/L Final POC ChlorideDate/Time Value Ref Range Status 08/20/2024 12:25 AM 95 95 - 109 mEq/L Final Chloride LvlDate/Time Value Ref Range Status 09/18/2024 05:29 AM 104 98 - 107 mEq/L Final FL esophagus barium swallow w video and speechResult Date: 09/22/2024 Impression: No deep laryngeal penetration or aspiration with liquids or solids ELECTRONICALLY SIGNED BY FERNANDO BLOCK MD ON 09/22/2024 AT 13:43. ECG 12 leadResult Date: 09/11/2024 Impression: SINUS RHYTHM WITH FREQUENT PREMATURE VENTRICULAR COMPLEX(ES) LOW QRS VOLTAGE -- CONSIDER PULMONARY DISEASE, PERICARDIAL EFFUSION, OR NORMAL VARIANT SEPTAL INFARCTION AGE UNDETERMINED ABNORMAL ECG WHEN COMPARED WITH ECG OF 30-AUG-2024 17:21, PREMATURE VENTRICULAR COMPLEX(ES) ARE NOW PRESENT Confirmed by Bernie Seth ([id number]) on 09/11/2024 1:05:[address] BRAIN WO IV CONTRASTResult Date: 09/08/2024 Impression: Redemonstrated recent right MCA distribution infarct with unchanged small regions of petechial hemorrhage versus early cortical laminar necrosis. ELECTRONICALLY SIGNED BY SOLEDAD GARCIA MD ON 09/08/2024 AT 13:28. CT BRAIN WO IV CONTRASTResult Date: 09/06/2024 Impression: 1. Redemonstrated recent right frontal lobe infarction with minimal petechial hemorrhage, grade 1 hemorrhagic transformation. No prema hematoma conversion. Findings are stable to minimally progressed. 2. Old infarct of the left parietal lobe. 3. No midline shift or mass effect. ELECTRONICALLY SIGNED BY FERNANDO BLOCK MD ON 09/06/2024 AT 13:22. XR abdomen 1 viewResult Date: 09/06/2024 Impression: Moderate retained fecal matter throughout the colon. ELECTRONICALLY SIGNED BY VEE MAYERS MD ON 09/06/2024 AT 09:08. Assessment/Plan:ICD-10-CM 1. 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 Hemiparesis affecting left side as late effect of stroke (CMS/HCC) (HCC) I69.354 Ambulatory referral to Home Health 3. Other abnormalities of gait and mobility R26.89 Ambulatory referral to Home Health 4. Cognitive communication deficit R41.841 Ambulatory referral to Home Health 5. Other hyperlipidemia E78.49 6. Other sleep disorders G47.8 7. Neurogenic bowel K59.2 8. 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 Diabetes mellitus due to underlying condition with hyperglycemia, without long-term current use of insulin ([facility]) E08.65 10. Primary hypertension I10 Ambulatory referral to Home Health 11. Intracranial atherosclerosis I67.2 12. 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 ([facility]) I63.311 Ambulatory referral to Home Health 13. Uncontrolled type 2 diabetes mellitus with hyperglycemia ([facility]) E11.65 Ambulatory referral to Home Health 14. Cerebrovascular accident (CVA) due to embolism of right middle cerebral artery ([facility]) I63.411 Ambulatory referral to Neurology 15. Acute ischemic stroke ([facility]) I63.9 Ambulatory referral to Neurology New Medications Ordered This Visit Medications sodium chloride (NS) 0.9 % flush 10 mL midazolam (Versed) injection 5 mg levETIRAcetam (Keppra) injection 1,500 mg magnesium hydroxide (Milk of Magnesia) 400 MG/5ML suspension 30 mL bisacodyl (Dulcolax) suppository 10 mg amLODIPine (Norvasc) tablet 10 mg aspirin chewable tablet 324 mg atorvastatin (Lipitor) tablet 80 mg Docusate Sodium oral liquid 100 mg heparin injection 5,000 Units ipratropium-albuterol (Duo-Neb) 0.5-2.5 mg/3 mL nebulizer solution 3 mL losartan (Cozaar) tablet 75 mg melatonin tablet 3 mg polyethylene glycol (PEG) 3350 (Miralax) packet 17 g sennosides (Senokot) tablet 8.6 mg dextrose 50 % solution 12.5 g glucagon injection 1 mg insulin lispro (HumaLOG, Admelog) injection 3-12 Units Correction Insulin Dosing: (DO NOT CHANGE DEFAULT SELECTION/VALUES): Medium BG < 70 instructions:: Follow Hypoglycemia Orders BG 70-149 instructions:: No Dose Needed BG 150-199:: 3 BG 200-249:: 6 BG 250-299:: 9 BG >/= 300:: 12 BG > 300 instructions:: Contact Provider clopidogrel (Plavix) tablet 75 mg Boost Glucose Control liquid 237 mL influenza vac split high-dose (Fluzone High-Dose) syringe 0.5 mL mirtazapine (Remeron) tablet 15 mg caffeine tablet 100 mg bisacodyl (Dulcolax) suppository 10 mg modafinil (Provigil) tablet 100 mg insulin glargine (Lantus) pen 22 Units DVT ppx:Last Anticoag Admin heparin injection 5,000 Units Given 5,000 Units at 0612 Frequency: Every 8 hours There are additional administrations since 09/20/24828 that are not shown.No unadministered anticoagulant orders found. No acute issues. Resume comprehensive therapies. Resume treatment plan as specified above. ---Thank you for allowing me to participate in the care of this patient Leeroy Lozada MD, MSPhysical Medicine and Rehabilitation [facility] * Bernadette Norton MD - 09/22/2024 9:50 PM MANAGER [facility]IRELESS Physical Medicine & Rehabilitation Daily Progress Note Code status: Full Code Current diet: Adult Diet Dysphagia; 0 - Thin Liquids; 5 - Minced & Moist (Dysphagia Ground); 1:1 Feeding Isolation: No active isolations Allergies: Patient has no known allergies. Subjective: No events report last night by nursing. Pain is controlled Some orthostasis in PT (wasn't wearing abdominal binder) Objective: Sleep hours logged Nighttime Sleep Hours: 9 hrs Last Bowel Movement: Last BM Date: 09/22/24 Stool Color: Brown Stool Appearance: Soft Stool Amount: Small Bowel Incontinence: Yes Bowel Elimination Assistance Level: Completely dependent Labs Lab Results Component Value Date WBC 8.30 09/18/2024 Hgb 11.9 (L) 09/18/2024 Hct 37.5 09/18/2024 Plt Count 310 09/18/2024 Cholesterol 149 08/19/2024 Triglycerides 83 08/19/2024 HDL Cholesterol 46.4 08/19/2024 ALT 15 09/18/2024 AST 25 09/18/2024 Sodium Lvl 140 09/18/2024 Potassium Lvl 4.6 (H) 09/18/2024 Chloride Lvl 104 09/18/2024 Creatinine Lvl 1.07 09/18/2024 BUN 17 09/18/2024 CO2 Lvl 28.0 09/18/2024 INR 0.95 08/19/2024 Hgb A1C 9.40 (H) 08/19/2024 Vitals Vitals: 09/22/24 1431 09/22/24 1651 09/22/24 1906 09/22/24 1921 BP: (!) 93/55 (!) 126/54 (!) 148/55 Pulse: 96 70 98 Resp: 18 18 Temp: 36.4 ?C (97.5 ?F) SpO2: 97% 24 Hr Tmax: Temp (24hrs), Av.6 ?C (97.9 ?F), Min:36.4 ?C (97.5 ?F), Max:36.7 ?C (98.1 ?F) Latest Weight: 82.3 kg (181 lb 7 oz) Intake & Output No intake or output data in the 24 hours ending 09/22/242149 No intake/output data recorded. No intake/output data recorded. Medications [Held by provider] amLODIPine, 10 mg, Oral, Daily aspirin, 324 mg, Nasogastric, Daily atorvastatin, 80 mg, Oral, Daily bisacodyl, 10 mg, Rectal, Every evening Boost Glucose Control, 1 Container, Oral, TID with meals caffeine, 100 mg, Oral, BID Docusate Sodium, 100 mg, Per G Tube, q12h heparin, 5,000 Units, Subcutaneous, q8h influenza vaccine, 0.5 mL, Intramuscular, During hospitalization insulin glargine, 22 Units, Subcutaneous, Every evening ipratropium-albuterol, 3 mL, Nebulization, q6h losartan, 75 mg, Oral, Daily melatonin, 3 mg, Per G Tube, Nightly mirtazapine, 15 mg, Oral, Nightly modafinil, 100 mg, Oral, BID polyethylene glycol (PEG) 3350, 17 g, Per G Tube, q12h sennosides, 1 tablet, Oral, Nightly PRN medications: bisacodyl, dextrose, glucagon, insulin lispro, levETIRAcetam, magnesium hydroxide, midazolam, sodium chloride Physical Exam:General: in no distress HEENT: moist mucous membranes; left ptosis CV: no peripheral cyanosis Pulm: normal respiratory effort GI: non-distended abdomen Derm: no rashes or ulcers in areas examed Psych: calm, cooperative DIAGNOSES & PROBLEMSPrincipal Problem: 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 male with hx of prior ischemic stroke w/ no residual deficits, HTN, DM2, lung cancer (last treatment 2021) who presented to [facility] on 08/19 w/ left sided weakness and neglect, found to have R MCA stroke s/p TNK and endovascular thrombectomy on 08/19 with subsequent improvement in strength and mentation. Mild hemorrhagic conversion. Acute care course c/b CAP s/p completion of abx on 08/28/24 Right middle cerebral artery strokeStable neurologic status; admission imaging did show some minimal hemorrhagic conversion Completed 21 days of dual antiplatelet therapy and currently on aspirin monotherapy in addition to atorvastatin for secondary stroke prevention Left hemiparesisOngoing work on neuromuscular education Cognitive deficitsSevere; arousal is the most problematic at this time Continued on caffeine and modafinil; continued trial of twice daily modafinil Gait abnormalityOngoing work on independence in mobility with physical and Occupational Therapy DysarthriaOngoing work on articulation strategies speech-language pathology HypertensionBlood pressure is controlled on current dosages of amlodipine and losartan HyperglycemiaContinued on long-acting glargine as well as Premeal insulin Blood glucoses are still variable; ongoing adjustments from internal medicine Sleep dysfunctionContinue scheduled melatonin and mirtazapine Neurogenic bowelMonitor for constipation on docusate, senna, and MiraLAX Neurogenic bladderVoiding spontaneously; work on continence through time voids MalnutritionDietitian following closely; continued on diabetic supplements Continued with an increase in mirtazapine to improve dietary intake DVT prophylaxisContinue on subcutaneous heparin CODE STATUS: Full Disposition:To home with assistance from family - tentative on 09/27/24 Follow-up:[place] neurology within 2 weeks of discharge Primary care provider within 2 weeks of discharge Miguel Norton, [facility]#[id number] [facility] * Cecile Stuart, MT-BC - 09/22/2024 4:00 PM MANAGER WIRELESS Neurologic Music Therapy Session Treatment Target: L Neglect Patient Name: Chaitanya Tena : 1945 Admit Date: 09/05/2024 Patient Diagnosis: Diagnoses that have been ruled out: None Diagnoses that are still under consideration: None Final diagnoses: Acute stroke due to thrombosis of right middle cerebral artery (HCC) (Primary) Hemiparesis affecting left side as late effect of stroke (CMS/HCC) (HCC) Other abnormalities of gait and mobility Cognitive communication deficit Other hyperlipidemia Other sleep disorders Neurogenic bowel Other neuromuscular dysfunction of bladder Diabetes mellitus due to underlying condition with hyperglycemia, without long-term current use of insulin (HCC) Primary hypertension Intracranial atherosclerosis 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) Uncontrolled type 2 diabetes mellitus with hyperglycemia (HCC) Cerebrovascular accident (CVA) due to embolism of right middle cerebral artery (HCC) Acute ischemic stroke (HCC) Referring Practitioner: Chaitanya Lewis Today's Date: 09/22/2024 Preferred Language: Tanzanian Objective Note: Upon arrival, Patient was lying on mat in care of YARN DUMPER. Patient was seen for a co-treatment with physical therapy to target L side neglect. Patient participated in Cognitive Rehabilitation via MNT. Patient was able to complete activity with MIN assist with 50% accuracy, and verbal and visual cues. Patient Handoff completed with all needs met in care of YARN DUMPER and Tech. Treatment 09/22/24 1430 Session Information Session Date 09/22/24 Session Time In 1430 Session Time Out 1500 Session Overview Session Type Co-treat Consent For Session Provided By Other (Comment) (YARN DUMPER) Location Of Session 1st floor gym Patient Positioning For Session Seated EOM Present Upon Arrival Staff Session Description Physical Domain Goals Promote upper extremity engagment Physical Domain Observed Patient Response Increased use of upper extremities Physical Domain Outcome Progress towards goal Cognitive/Neurological Domain Goals Increase ability to attend to tasks;Increase/Encourage visual attention Cognitive/Neurological Domain Observed Patient Response Other (Comment) (Intermittent attention to task) Cognitive/Neurological Domain Patient Outcome With prompting;With auditory/tactile/visual cues Music Therapy Interventions Cognitive Musical Neglect Training (MNT) Recommendations Recommendations For Future Sessions Continue music therapy services;Co-treat with Co-treat With Physical Therapy Recommended Frequency 2-3/week Impression and Plan Recommendations Pt demonstrates fair effort and participation, although his confusion and inattention are significant limiting factors. He displayed more confusion today than AYAKA has observed in previous co-treatment sessions. Goals Encounter Goals Encounter Goals (Active) Patient will participate in therapeutic activities that promote sensory and/or motor neurorecovery of Upper Extremities without adverse side effects with IND assistance. (Progressing) Start: 09/14/24 Expected End: 09/27/24 Patient will complete mass repetition of sit to stands for improved functional lower extremity strength. (Progressing) Start: 09/14/24 Expected End: 09/27/24 Patient will complete gross motor tasks of left UE with MIN assist for 5 minutes to increase independence in ADLs/IADLs. (Progressing) Start: 09/14/24 Expected End: 09/27/24 Patient will track stimuli visually through Left and Multi plane visual ferro with 50% accuracy given MAX cues. (Progressing) Start: 09/14/24 Expected End: 09/27/24 AYAKA Castillo GER [facility] * Phoenix Cano CCC-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 - 09/22/2024 1:00 PM MANAGER WIRELESS Speech-Language Pathology Modified Barium Swallow (MBS) Patient Name: Chaitanya Tena Today's Date: 09/22/2024 Preferred Language: Tanzanian 09/22/24 1300 Time Calculation Start Time 1300 Stop Time 1322 Time Calculation (min) 22 min General MBS/FEES MBS Pain Assessment Pain Assessment 0-10 Pain Score 0 Oral/Motor Dentition Dentures top;Dentures bottom Face Impaired Face Symmetry Impaired Facial ROM Reduced left Jaw Impaired Jaw ROM Impaired Jaw Coordination Impaired Lips Impaired Lips Symmetry Impaired Lips ROM Impaired Lips Coordination Impaired Lips Strength Impaired Tongue Impaired Involuntary Muscular Movement Absent Video Fluoroscopic Exam Patient Position Upright;In a wheelchair Viewing Plane Lateral Feeding Assistance Patient self-delivered bolus trials Follow Directions/Commands Given No Respiratory Status Room air Impairment Profile Lip Closure Impaired Tongue Control During Bolus Hold Unable to Determine/Assess Bolus Preparation for Mastication Impaired Bolus Transport and Lingual Motion Impaired Soft Palate Elevation WFL Tongue Base Retraction Impaired Laryngeal Elevation WFL Anterior Hyoid Excursion WFL Epiglottic Movement WFL Laryngeal Vestibular Closure WFL Pharyngeal Stripping Wave WFL Pharyngoesophageal Segment Opening WFL Pharyngeal Contraction Unable to Determine/Assess Esophageal Clearance Unable to Determine/Assess Clinical Measures Clinical Measures Yes Clinical Measure 1 IDDSI Texture 0- Thin Bolus Characteristics sequential cup sip Bolus Hold No loss Bolus Transport Brisk Initiation of Pharyngeal Swallow Pyriform sinus Penetration-Aspiration Scale 1: Material does not enter airway Clinical Measure 2 IDDSI Texture 7- Regular Bolus Characteristics small bite of cookie Bolus Hold No loss Bolus Transport Repetitive;Disorganized;Slowed Initiation of Pharyngeal Swallow Valleculae Penetration-Aspiration Scale 1: Material does not enter airway Clinical Measure 3 IDDSI Texture BaSo4- Med Barium Medication (Capsule or Tablet) Bolus Characteristics Barium tablet with contrast thin cup sip Bolus Hold No loss Bolus Transport Disorganized (Unable to complete AP transit for mixed consistency. Barium tablet remained in oral cavity.) Initiation of Pharyngeal Swallow Pyriform sinus Penetration-Aspiration Scale 2: Material enters the airway, remains above the vocal folds, and is ejected from the airway. Clinical Measure 4 IDDSI Texture BaSo4- Med Barium Medication (Capsule or Tablet) Bolus Characteristics Barium tablet with non-contrast thin puree Bolus Hold No loss Bolus Transport Slowed Initiation of Pharyngeal Swallow Base of tongue Penetration-Aspiration Scale 1: Material does not enter airway Clinical Measure 5 IDDSI Texture 0- Thin Bolus Characteristics Sequential straw sips Bolus Hold No loss Bolus Transport Brisk Initiation of Pharyngeal Swallow Pyriform sinus Penetration-Aspiration Scale 2: Material enters the airway, remains above the vocal folds, and is ejected from the airway. Amount of Residue and Location (on the worst texture) Floor of Mouth Clearance Cleared Anterior Sulci Clearance Cleared Palate Clearance Cleared Tongue Clearance Residue Collection Present Tongue Base Clearance Trace Residue Valleculae Clearance Trace Residue Pharyngeal Wall Clearance Cleared Aryepiglottic Folds Clearance Cleared Pyriform Sinuses Clearance Cleared Suspected Etiology of Dysphagia Deficits Dysphagia Dysphagia identified Neurological Intracranial bleed Impressions Impressions Pt presents mild oral phase deficits as characterized by prolonged/disorganized mastication and AP transit. Pt p/w grossly WFL pharyngeal phase; however, pt with consistently delayed swallow initiation and trace pharyngeal residues following thin liquid trials. No aspiration appreciated across trials. Recommend pt continue minced and moist solids with thin liquids, meds whole 1 at a time in puree. Recommend ongoing trials of soft and bite-sized solids, solids okay to be advanced at bedside as clinically indicated. 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 Plan NPO No Swallow Precautions Clear pocketing;Alternate liquids/solids;Remain upright after meals 30 minutes;Oral hygiene after meals;Small bites/sips Solid Consistency Minced & Moist Liquid Viscosity Thin Liquids Carbonated Liquids Only No Medications Whole in puree;One pill at a time Supervision Recommended Close supervision Compensatory Strategies for Dysphagia Slow rate;Alternate solids and liquids;Oral hygiene;Small bites/sips;Clear oral residue Therapeutic Recommendations Trials with 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 Outcome Measures 09/22/24 1300 International Disphagia Diet Standardization Initiative (IDDSI) Prescribed Food Level 5-Minced & Moist Prescribed Liquid Level 1-Slightly Thick IDDSI-Functional Diet Scale 6 09/22/24 1300 Dysphagia Outcome And Severity Scale (AMPARO) Select Patient AMPARO Level Level 5 - Mild dysphagia Goals: Encounter Goals Encounter Goals (Active) LTG - Patient will participate in ongoing diagnostic assessments to determine plan of care Start: 09/06/24 Expected End: 09/28/24 STG - Patient will participate in ongoing diagnostic assessments to determine plan of care Start: 09/06/24 Expected End: 09/28/24 LTG - Orientation to self, time, place, and situation Start: 09/15/24 STG - Express orientation information Start: 09/15/24 LTG - Comprehension of single words and simple expressions Start: 09/15/24 STG - Answer yes/no questions Start: 09/15/24 LTG - Patient will improve on swallowing outcome measure Start: 09/15/24 STG - Improve bolus formation Start: 09/15/24 JONATHAN WattSLP GER [facility] * Mikayla Pascual PTA - 09/22/2024 12:40 PM MANAGER WIRELESS Treatment Session Note Patient Name: Chaitanya Tena Today's Date: 09/23/2024 Preferred Language: Tanzanian Assessment & Plan Assessment: PT Assessment: (P) Pt demonstrating orthostatic hypotension in sitting on initial assessment and was brought to therapy plinth for restabilization of vital signs in supine. Once supine, was alert though disoriented to situation (multimodal attempts to re-orient unsuccessful) and was unable to direct back into functional activity without significant assist of multiple people to sit EOM. Pt participated in music therapy from EOM using drums to drum from L to midline, though repeatedly drumming not on various other objects while visual scanning other areas of gym. Recommend avoidance of 1FL gym for therapy sessions focused on L neglect. Increased agitation Evaluation/Treatment Tolerance: (P) Treatment limited secondary to agitation, Treatment limited secondary to medical complications (Comment) (orthostasis limiting gait ability) Plan: Treatment Plan/Goals Established with Patient/Caregiver: Yes PT Frequency: 60-90 minutes per day Equipment Recommended: DME toileting, DME bathing PT Planned Treatment: Age appropriate play, Aquatic therapy, Assistive technology, Balance training, Basic activities of daily living, Bed mobility training, Body weight support treadmill training, Caregiver training, Community/Work reintegration, Compression wrapping, Desensitization program, Developmental skills training, Edema management, Electric modalities, Equipment training, Gait training, Group therapy, Home assessment/modification, Manual therapy, Mechanical modalities, Neuromuscular reeducation, Orthotic training, Pain management, Patient education, Positioning, Posture/Body mechanics training, Robotic assisted walking therapy, Spasticity Management, Seating, Stair training, Taping, Therapeutic activities, Therapeutic exercises, Thermal/Light modalities, Transfer training Duration: 3-4 weeks Subjective Pt sitting in WC with [facility] staff attending to needs, agreeable to PT session oriented to self. Pain: 0/10 Vital Signs: Patient Vitals for the past 12 hrs: BP MAP (mmHg) Pulse Resp SpO2 09/23/24 0717 -- -- 92 -- -- 09/23/24 0715 127/67 87 -- -- -- 09/23/24 0632 -- -- 94 18 97 % 09/23/24 0621 -- -- 92 17 95 % 09/23/24 0620 -- -- 92 17 95 % 09/23/24 0132 -- -- 84 18 96 % No data found. Objective 09/22/24 1725 09/22/24 1726 General Amount of Missed Time (min) 10 Minutes 10 Minutes Missed Time Reason Nursing care (medication administration, 1:1 feeding with PCT staff in between medication preparation.) Other (Comment) (Patient not in room, not with prior therapist. Locating patient.) Family/Caregiver Present No -- Time Calculation Start Time 1240 1410 Stop Time 1300 1500 Time Calculation (min) 20 min 50 min Co-Treatment Co-Treatment -- Yes Co-Treatment With -- Music Therapy Primary Therapist -- Physical Therapy Pain Assessment Pain Assessment -- 0-10 Pain Score -- 0 Pain Rating Scale (DVPRS) -- 0 David-Cano FACES Pain Rating -- 0 Therapeutic Exercise Therapeutic Exercise Activity 1 -- PROM cervical spine to increase cervical midline, L rotation. limited by active resistance after several attempts with YARN DUMPER on GB behind patient. Position 1 -- Seated Therapeutic Activity Therapeutic Activity Time Entry 5 35 Bed Mobility Bed Mobility -- Yes Bed Mobility 1 Level of Assistance 1 -- Independent Assistive Devices And Adaptive Equipments -- No device Bed Mobility 2 Level of Assistance 2 -- Dependent Bed Mobility Comments 2 -- performed x2: 2 persons and 3 persons to assist d/t active resistance and inability to orient to situation or encourage to move. Bed Mobility To/From -- Supine to sit on EOB Bed Mobility 3 Level of Assistance 3 -- Substantial/Max assistance Bed Mobility Comments 3 -- active resistance in both hooklying and straight leg positions to roll to L, Bed Mobility To/From -- Roll lying on back to left Lying to Sitting on Side of Bed Assistance Needed -- Physical assistance Physical Assistance Level -- Total assistance Comment -- flat surface CARE Score - Lying to Sitting on Side of Bed -- 1 Sit to Lying Assistance Needed -- Set-up / clean-up;Verbal cues CARE Score - Sit to Lying -- 4 Transfers Transfer Yes -- Transfer 1 Level of Assistance 1 Supervision/touching assistance Supervision/touching assistance Trials/Comments 1 in side // bars with RUE assist x2, BUE assist x2 SPV -- Transfer To/From Nxp-uo-Xuxst/Riiti-sq-Wjt Ymz-fb-Vsacq/Iptyf-aq-Ouk Transfers 2 Technique 2 -- Squat pivot Level of Assistance 2 -- Partial/Mod assistance (Ryan) Trials/Comments 2 -- to L, stand step shuffling small steps Transfer To/From -- Mnmkdosqac-lg-bzw/Bjc-wn-kusumpvulc Assistive Devices And Adaptive Equipments -- No device Transfers 3 Technique 3 -- Stand pivot;Squat pivot Level of Assistance 3 -- Dependent Trials/Comments 3 -- 2 persons; agitation d/t confusion/disorientation to situation during task, actively pushing YARN DUMPER away with trunk and UE's Transfer To/From -- Dhbgdwufdw-zw-lzh/Rnm-np-xscfdmsjgg Chair/Qko-iq-Bdeqo Transfer Assistance Needed -- Physical assistance Physical Assistance Level -- Total assistance CARE Score - Chair/Eca-fh-Yjawr Transfer -- 1 Sit to Stand Assistance Needed -- Supervision Comment -- no device CARE Score - Sit to Stand -- 4 Balance/Neuromuscular Re-Education Neuromuscular Re-Education Time Entry 15 25 Balance/Neuromuscular Re-Education Activity 1 L forced use 6" step under RLE with attention to midline orientation using mirror, pt neglectful of mirror in central visual field.. x8 inside // bars, intermittent need for BUE holding on to // and pt attempting to move RL Eoff of step repeatedly. BUE to target reaching across diagonals, most soccussful in UE flexion of L and RUE pt spending appx 2 and 5 mins on L side to promote proprioceptive awareness and pressure through L sided joints. Visual snning to midline improved in L sidelying position with external cue to mirror frontally Balance/Neuromuscular Re-Education Activity 2 -- sitting EOM unsupported, focus of midline orientation and L neglect reorientation with use of mirror and music therapy. Bimanual task, visual scanning to L. PT Assessment PT Assessment Trunk lateropulsion minor noted in standing with L inattention/neglect limiting tracking to midline and ability to scan immediate surroundings. No additional helper available this session to work on gait safely, however BP WNL with MAHOGANY hose donned in both standing and sitting. Pt left in care of transportation staff at [facility] for MBS in ST session post tx. Pt demonstrating orthostatic hypotension in sitting on initial assessment and was brought to therapy plinth for restabilization of vital signs in supine. Once supine, was alert though disoriented to situation (multimodal attempts to re-orient unsuccessful) and was unable to direct back into functional activity without significant assist of multiple people to sit EOM. Pt participated in music therapy from EOM using drums to drum from L to midline, though repeatedly drumming not on various other objects while visual scanning other areas of gym. Recommend avoidance of 1FL gym for therapy sessions focused on L neglect. Increased agitation Evaluation/Treatment Tolerance -- Treatment limited secondary to agitation;Treatment limited secondary to medical complications (Comment) (orthostasis limiting gait ability) Patient Education: Education Documentation No documentation found. Education Comments No comments found. Goals: Encounter Goals Encounter Goals (Active) Pt will perform all bed mobility independently (Progressing) Start: 09/06/24 Expected End: 09/27/24 Goal Note Performing with verbal cues and SVN LTG: Pt will ambulate > 150 ft with SPV and LRAD (Progressing) Start: 09/06/24 Expected End: 09/27/24 Goal Note Continuing to trial ambulation with and without RW LTG: Pt will improve BBS to 36/56 to indicate decreased risk for falls (Progressing) Start: 09/06/24 Expected End: 09/27/24 Goal Note 09/18: scores 9/36 STG: Pt will improve BBS to >13/56 to indicate decreased risk for falls (IE5/56, MDC 6.9 pts) (Progressing) Start: 09/06/24 Expected End: 09/27/24 Goal Note 09/18: scores 9/36 Within 2 weeks of starting therapy, the patient and/or family/caregiver will demonstrate independence and be compliant in a written HEP in order to maximize gains made during therapy. (Progressing) Start: 09/06/24 Expected End: 09/27/24 Goal Note Continuing to assess for appropriate HEP LTG: Pt will perform stand step transfers with set-up assist and LRAD (Progressing) Start: 09/06/24 Expected End: 09/27/24 Goal Note Performing with partial A STG: Pt will perform stand step transfers with touch A and LRAD (Progressing) Start: 09/06/24 Expected End: 09/27/24 Goal Note Performing with partial A Encounter Goals (Resolved) STG: Assess gait as appropriate (Completed) Start: 09/06/24 Expected End: 09/13/24 Resolved: 09/12/24 Goal Note Gait with RW and 2 POH Supervising Physical Therapist: Thelma Cuevas PT Mikayla Pascual PTA [facility] [facility] * Derrell Davis OT - 09/22/2024 11:00 AM MANAGER WIRELESS Treatment Session Note Patient Name: Chaitanya Tena Today's Date: 09/22/2024 Preferred Language: Tanzanian Assessment & Plan Assessment: OT Assessment: Pt showed improved endurance and participation throughout the session . Pt was able to recall 2/3 pet names. Pt showed improved toppgraphrical orientaion via identifying his room Plan: Treatment Plan/Goals Established with Patient/Caregiver: Yes Treatment Interventions: ADL retraining, Cognitive reorientation, Aquatic therapy, Compensatory technique education, Endurance training, Equipment evaluation/education, Functional transfer training, Fine motor coordination activities, Neuromuscular reeducation, Orthotic/Orthotic management, Patient/family training, Positioning, UE strengthening/ROM, Visual perceptual retraining OT Plan: Skilled OT OT Frequency: 5-7 times per week OT Planned Treatments: Work simplification, Discharge, Activities of Daily Living, Aquatics, Balance training, Caregiver training, Casting, Cognitive training, Coordination, Developmental skills training, Discharge/Discontinue OT treatment, Dry needling, Edema managment, Electric modalities, Energy conservation training, Equipment assessment, Equipment training, Group therapy, Home program, Joint protection, Manual therapy, Mobility training, Neuromuscular reeducation, Orthotic, Pain management, Patient education, Prevocational training, Safety education, Seating/Positioning, Sensory integration, Spasticity Managment, Splinting, Taping, Therapeutic activities, Therapeutic exercises, Thermal modalities, Visual and perceptual training OT Duration: 3-4 weeks Subjective Pain: Pain Assessment Pain Assessment: 0-10 (09/22/20241099) Pain Score: 0 (09/22/20241099) Pain Rating Scale (DVPRS): No pain (09/22/20241099) Vital Signs: Patient Vitals for the past 12 hrs: BP MAP (mmHg) Pulse Resp SpO2 09/22/24 1210 -- -- 88 17 98 % 09/22/24 1201 -- -- 86 16 96 % 09/22/24 0700 132/66 88 (!) 104 -- -- 09/22/24 0644 -- -- 88 16 97 % 09/22/24 0633 -- -- 92 17 95 % 09/22/24 0632 -- -- 92 17 95 % 09/22/24 0107 -- -- 87 18 100 % 09/22/24 0102 -- -- 86 18 100 % No data found. Objective 09/22/24 1100 Time Calculation Start Time 1100 Stop Time 1200 Time Calculation (min) 60 min Pain Assessment Pain Assessment 0-10 Pain Score 0 Pain Rating Scale (DVPRS) 0 Therapeutic Procedures Time Entry Therapeutic Activity Time Entry 30 Wheelchair Management Time Entry 30 Wheelchair Activities Propulsion Yes (Pt particiapted in BLE wheelchair proplusion activity from 3rd floor gym to his room; req cues to initate the activity and make turns. Pt req minimal rest breaks throughout the activity.) Therapeutic Activity Therapeutic Activity 1 Pt particiapted in wheelchair clinic to address seating needs. See wheelchair prescript to see measurements and justifications OT Assessment OT Assessment Pt showed improved endurance and participation throughout the session . Pt was able to recall 2/3 pet names. Pt showed improved toppgraphrical orientaion via identifying his room Patient Education: Education Documentation No documentation found. Education Comments No comments found. Goals: Encounter Goals Encounter Goals (Active) Patient will perform grooming with minimum assist for improved independence with ADLs (Progressing) Start: 09/06/24 Expected End: 09/27/24 Patient will perform feeding with minimum assist for improved independence with ADLs (Progressing) Start: 09/06/24 Expected End: 09/27/24 Patient will perform upper body dressing with minimum assist to improve independence with dressing. (Progressing) Start: 09/06/24 Expected End: 09/27/24 Patient will perform lower body dressing with moderate assist to improve independence with dressing. (Progressing) Start: 09/06/24 Expected End: 09/27/24 Pt and/or caregiver(s) will have all appropriate DME, recommendations, or completed prescriptions to maximize pt's safety and independence at discharge. (Progressing) Start: 09/06/24 Expected End: 09/27/24 Patient and/or caregivers will verbalize understanding of home program including safety tips, equipment instructions, and home exercises. (Progressing) Start: 09/06/24 Expected End: 09/27/24 Patient will participate in forced use activities using the affected upper extremity with minimum assistance to inhibit abnormal movement patterns. (Progressing) Start: 09/06/24 Expected End: 09/27/24 Patient will incoporate their affected upper extremity with minimal assist/cues during functional task performance. (Progressing) Start: 09/06/24 Expected End: 09/27/24 Patient will participate in seating and mobility trials to improve posture, reduce tone, and prevent secondary complications. (Progressing) Start: 09/06/24 Expected End: 09/27/24 Derrell Davis OT GER [facility] * Jenny Jernigan MD - 09/22/2024 10:36 AM MANAGER WIRELESS Subjective Patient has had some intermittent hypoglycemia over the past 2 days. Objective Last Recorded Vitals Blood pressure 132/66, pulse (!) 104, temperature 36.7 ?C (98.1 ?F), resp. rate 16, height 1.702 m (5' 7"), weight 82.3 kg (181 lb 7 oz), SpO2 97%. Physical Exam: GEN: NAD, appears stated age HEAD: normocephalic atraumatic EENT: PERRLA, no scleral icterus, trachea is midline, neck is supple CV: Regular rate and rhythm, no murmurs, no gallops or rubs, no extremity edema, intact peripheral pulses PULM: lungs clear to auscultation, no accessory muscle use ABD: Soft, non distended, non tender, bowel sounds present NEURO; opens eyes to touch but went back to sleep and did not answer any questions SKIN: warm to palpation, no abnormal discoloration Current Active Medications [Held by provider] amLODIPine, 10 mg, Oral, Daily aspirin, 324 mg, Nasogastric, Daily atorvastatin, 80 mg, Oral, Daily bisacodyl, 10 mg, Rectal, Every evening Boost Glucose Control, 1 Container, Oral, TID with meals caffeine, 100 mg, Oral, BID Docusate Sodium, 100 mg, Per G Tube, q12h heparin, 5,000 Units, Subcutaneous, q8h influenza vaccine, 0.5 mL, Intramuscular, During hospitalization insulin glargine, 22 Units, Subcutaneous, Every evening ipratropium-albuterol, 3 mL, Nebulization, q6h losartan, 75 mg, Oral, Daily melatonin, 3 mg, Per G Tube, Nightly mirtazapine, 15 mg, Oral, Nightly modafinil, 100 mg, Oral, BID polyethylene glycol (PEG) 3350, 17 g, Per G Tube, q12h sennosides, 1 tablet, Oral, Nightly PRN medications: bisacodyl, dextrose, glucagon, insulin lispro, levETIRAcetam, magnesium hydroxide, midazolam, sodium chloride Lab ResultsResults from last 7 days Lab Units 09/18/24 0529 WBC 10*3/uL 8.30 HEMOGLOBIN g/dL 11.9* HEMATOCRIT % 37.5 PLATELETS 10*3/uL 310 Results from last 7 daysLab Units 09/22/24 0745 09/18/24 0724 09/18/24 0529 SODIUM mEq/L -- -- 140 POTASSIUM mEq/L -- -- 4.6* CHLORIDE mEq/L -- -- 104 CO2 mEq/L -- -- 28.0 BUN mg/dL -- -- 17 CREATININE mg/dL -- -- 1.07 GLUCOSE mg/dL -- -- 62* POC GLUCOSE mg/dL 103* < > -- CALCIUM mg/dL -- -- 9.6 < > = values in this interval not displayed. Javon Tena is a 78 y.o. 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 His hospital course was complicated by bacterial pneumonia for which he completed course of antimicrobials. He is now here for comprehensive rehabilitation. Assessment & Plan Right MCA stroke:On aspirin, atorvastatin Completed 21-day course of clopidogrel Modafinil Orthostasis:Amlodipine was held earlier during the stay because of this Improved Type 2 diabetes mellitus:On glargine 22 units every evening Premeal insulin was held secondary to hypoglycemia We will likely make some further adjustments over the next few days Correction of since with Accu-Cheks ACHS Hypertension:Continue losartan 75 mg daily VTE prophylaxis: heparin - 5000 units/mL GER [facility] * Pauline Lunsford OT - 09/22/2024 10:34 AM MANAGER WIRELESS Treatment Session Note Patient Name: Chaitanya Tena Today's Date: 09/22/2024 Preferred Language: Tanzanian Assessment & Plan Assessment: OT Assessment: Pt demonstrates ongoing deficits impacting participation in ADL tasks. Continue with OT POC. Plan: Treatment Plan/Goals Established with Patient/Caregiver: Yes Treatment Interventions: ADL retraining, Cognitive reorientation, Aquatic therapy, Compensatory technique education, Endurance training, Equipment evaluation/education, Functional transfer training, Fine motor coordination activities, Neuromuscular reeducation, Orthotic/Orthotic management, Patient/family training, Positioning, UE strengthening/ROM, Visual perceptual retraining OT Plan: Skilled OT OT Frequency: 5-7 times per week OT Planned Treatments: Work simplification, Discharge, Activities of Daily Living, Aquatics, Balance training, Caregiver training, Casting, Cognitive training, Coordination, Developmental skills training, Discharge/Discontinue OT treatment, Dry needling, Edema managment, Electric modalities, Energy conservation training, Equipment assessment, Equipment training, Group therapy, Home program, Joint protection, Manual therapy, Mobility training, Neuromuscular reeducation, Orthotic, Pain management, Patient education, Prevocational training, Safety education, Seating/Positioning, Sensory integration, Spasticity Managment, Splinting, Taping, Therapeutic activities, Therapeutic exercises, Thermal modalities, Visual and perceptual training OT Duration: 3-4 weeks Subjective Pain: Pain Assessment Pain Assessment: 0-10 (09/22/20241033) Pain Score: 0 (09/22/20241033) Pt with 0/10 reported or suspected pain on 0-10 pain scale at end of session. Vital Signs: Patient Vitals for the past 12 hrs: BP MAP (mmHg) Pulse Resp SpO2 09/22/24 1210 -- -- 88 17 98 % 09/22/24 1201 -- -- 86 16 96 % 09/22/24 0700 132/66 88 (!) 104 -- -- 09/22/24 0644 -- -- 88 16 97 % 09/22/24 0633 -- -- 92 17 95 % 09/22/24 0632 -- -- 92 17 95 % 09/22/24 0107 -- -- 87 18 100 % 09/22/24 0102 -- -- 86 18 100 % No data found. Objective 09/22/24 103 General Amount of Missed Time (min) 4 Minutes Missed Treatment Reason Nursing care Time Calculation Start Time 1034 Stop Time 1100 Time Calculation (min) 26 min Pain Assessment Pain Assessment 0-10 Pain Score 0 Therapeutic Procedures Time Entry Therapeutic Activity Time Entry 26 Therapeutic Activity Therapeutic Activity 1 Pt engaged in table top FM and L attention activity. Pt requires max VC and physical cues with attempts to play Connect 4 per the rules, however transitioned to placing game items from L to R due to pt inability to follow instructions requried. Pt continues to demonstrate impairments with L inattention and requires max VC and physical cues to attend to the L. OT Assessment OT Assessment Pt demonstrates ongoing deficits impacting participation in ADL tasks. Continue with OT POC. Patient Education: Education Documentation No documentation found. Education Comments No comments found. Goals: Encounter Goals Encounter Goals (Active) Patient will perform grooming with minimum assist for improved independence with ADLs (Progressing) Start: 09/06/24 Expected End: 09/27/24 Patient will perform feeding with minimum assist for improved independence with ADLs (Progressing) Start: 09/06/24 Expected End: 09/27/24 Patient will perform upper body dressing with minimum assist to improve independence with dressing. (Progressing) Start: 09/06/24 Expected End: 09/27/24 Patient will perform lower body dressing with moderate assist to improve independence with dressing. (Progressing) Start: 09/06/24 Expected End: 09/27/24 Pt and/or caregiver(s) will have all appropriate DME, recommendations, or completed prescriptions to maximize pt's safety and independence at discharge. (Progressing) Start: 09/06/24 Expected End: 09/27/24 Patient and/or caregivers will verbalize understanding of home program including safety tips, equipment instructions, and home exercises. (Progressing) Start: 09/06/24 Expected End: 09/27/24 Patient will participate in forced use activities using the affected upper extremity with minimum assistance to inhibit abnormal movement patterns. (Progressing) Start: 09/06/24 Expected End: 09/27/24 Patient will incoporate their affected upper extremity with minimal assist/cues during functional task performance. (Progressing) Start: 09/06/24 Expected End: 09/27/24 Patient will participate in seating and mobility trials to improve posture, reduce tone, and prevent secondary complications. (Progressing) Start: 09/06/24 Expected End: 09/27/24 Pauline Lunsford OT GER [facility] * Erin Appiah RD - 09/22/2024 10:21 AM MANAGER WIRELESS [facility] Adult Nutrition Assessment Nutrition Diagnosis Nutrition Diagnosis: Inadequate oral intake related to decreased ability to consume sufficient energy as evidenced by documentation. Improved Altered nutrition-related lab values related to ETIOLOGY: endocrine dysfunction as evidenced by abnormal plasma glucose and/or HgbA1c levels. Improved Interventions and Recommendations Continue ONS as ordered - adjust PRN Advance diet as medically feasible per 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 recommendations Continue to encourage adequate intake of meals Obtain weekly weights Nutrition Risk: NUTRITION RISK: Moderate, in 5-7 days Next Date for Nutrition Services Follow Up: 09/27/24 Current Diet Dietary Orders (From admission, onward) Start Ordered 09/08/24 1233 Adult Diet Dysphagia; 0 - Thin Liquids; 5 - Minced & Moist (Dysphagia Ground); 1:1 Feeding Diet effective now Question Answer Comment Diet type Dysphagia Liquid Consistency or Liquid Type: 0 - Thin Liquids Modify Texture or Food Level (Dysphagia): 5 - Minced & Moist (Dysphagia Ground) Tray Precautions: 1:1 Feeding 09/08/24 1233 Percent Meals Eaten for the past 48 hrs: Percent Meals Eaten (%) 09/21/24 1800 66 09/21/24 1200 75 09/21/24 1000 50 09/20/24 1800 66 09/20/24 1200 50 Oral Supplement(s): Boost Glucose Control TIDEnteral Nutrition: N/a Providing: Communication: Nutrition/Pharmacy Rounds Nutrition Visit [id number] - Pt with variable PO intake per documentation with consistent intake <75% of meals. RD to adjust ONS to help with glucose control. No current documented concerns with N/V - moderate amount of retained fecal matter per admission KUB. Weight loss suspected per documentation available - pt previously with DHT with TF regimen - continue to monitor intake. BG POCs variable at 94-381 mg/dL. Pt currently on diet with no concentrated sweets. 09/14 - Discussed pt with RN. RN stated that pt did not eat much of breakfast this AM, however ate 100% of his lunch. PO intake seems to be lower in the morning with improved intake later in the day. No current issues noted regarding N/V - LBM on 09/15 per documentation. Weight is up compared to weight obtained at time of admission. BG POCs elevated, however improved. 09/22 - Visited with pt at bedside. RD also spoke with RN this AM. RN stated that pt has not been eating well this morning - noted that pt is holding food in his mouth and not swallowing. RN did note that he is drinking ONS. No current issues with N/V/D/C - LBM on 1/10 per documentation. Weight up since [facility] admission? Weight is lower than original hospital admission. BG POCs variable. AnthropometricsHeight: 170.2 cm (5' 7") Admit WT: 81.3 kg Body mass index is 28.42 kg/m?. Weight History: Wt Readings from Last 14 Encounters: 09/14/24 82.3 kg (181 lb 7 oz) 08/28/24 88 kg (194 lb) Estimated Nutrition NeedsWeight Used for Equation Calculations: 81.3 kg (179 lb 3.7 oz) Calculated Energy Needs Using EquationsHeight: 1.702 m (5' 7") Weight Used for Equation Calculations: 81.3 kg (179 lb 3.7 oz) Energy Equation Used: Rule of thumb (kcal/kg) Energy Lower Range: 25 (kcal/kg) Energy Upper Range: 30 (kcal/day) Energy Needs Lower Range: 2032 kcal/day (kcal/day) Energy Needs Upper Range: 2439 kcal/day Temp: 36.7 ?C (98.1 ?F) Estimated Protein Needs(g/kg) Protein Lower Range: 1.2 (g/kg) Protein Upper Range: 1.5 (g/day) Protein Lower Range: 98 g/day (g/day) Protein Upper Range: 122 g/day Fluid Needs(mL/kg) Fluid Needs: 25 (mL/day) Fluid Needs (Calculated): 2032 mL/day Nutrition Physical FindingsOrientation Level: Disoriented to place; Disoriented to time O2 Delivery Method: Nasal cannula Gastrointestinal (WDL): WDL Abdomen Inspection: Soft; Rounded Abdominal Tenderness: Nontender Bowel Sounds: All quadrants Bowel Sounds (All Quadrants): Active Last BM Date: 09/22/24 LUE: Weakness RUE: Weakness LLE: Weakness RLE: Weakness Edema: Left upper extremity LUE Edema: Non-pitting RUE Edema: Non-pitting LLE Edema: Non-pitting RLE Edema: Dependent Skin: Wound care s/o Basic InformationConsulting MD: Bernadette Norton MD Admission Diagnosis: 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 male with hx of prior ischemic stroke w/ no residual deficits, HTN, DM2, lung cancer (last treatment 2021) who presented to [facility] on 08/19 w/ left sided weakness and neglect, found to have R MCA stroke s/p TNK and endovascular thrombectomy on 08/19 with subsequent improvement in strength and mentation. Mild hemorrhagic conversion. Acute care course c/b CAP s/p completion of abx on 08/28/24 Health StatusAllergies No Known Allergies Medications [Held by provider] amLODIPine, 10 mg, Oral, Daily aspirin, 324 mg, Nasogastric, Daily atorvastatin, 80 mg, Oral, Daily bisacodyl, 10 mg, Rectal, Every evening Boost Glucose Control, 1 Container, Oral, TID with meals caffeine, 100 mg, Oral, BID Docusate Sodium, 100 mg, Per G Tube, q12h heparin, 5,000 Units, Subcutaneous, q8h influenza vaccine, 0.5 mL, Intramuscular, During hospitalization insulin glargine, 22 Units, Subcutaneous, Every evening ipratropium-albuterol, 3 mL, Nebulization, q6h losartan, 75 mg, Oral, Daily melatonin, 3 mg, Per G Tube, Nightly mirtazapine, 15 mg, Oral, Nightly modafinil, 100 mg, Oral, BID polyethylene glycol (PEG) 3350, 17 g, Per G Tube, q12h sennosides, 1 tablet, Oral, Nightly HistoriesPast Medical History: Diagnosis Date Diabetes mellitus (HCC) Hypertension Lung cancer (HCC) Stroke (HCC) Review ManagementPertinent Labs : Lab Results Component Value Date POC Glu 103 (H) 09/22/2024 No results found for: "CALCIUM", "MG", "PHOS" No intake or output data in the 24 hours ending 09/22/24 1021 Impression and PlanMonitoring and Evaluation: MONITORING AND EVALUATION: Weight changes, Improved strength/function, Muscle wasting, Fat wasting, and Digestive/abdominal assessment Nutrition Intake: Nutrition Intake : PO intake and tolerance Labs: Glycemic Control Goal: GOAL: >75% of estimated needs met: Met with ONS Contact InformationErin Appiah MS, RD, LD [phone] [facility] * [place] Cano CCC-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 - 09/22/2024 9:35 AM MANAGER WIRELESS Speech-Language Pathology Treatment Session Note Patient Name: Chaitanya Tena Today's Date: 09/22/2024 Preferred Language: Tanzanian 09/22/24 0935 Time Calculation Start Time 0935 Stop Time 1022 Time Calculation (min) 47 min General Amount of Missed Time (min) 13 Minutes Missed Time Reason Other (Comment) (Transition b/w tx sessions) Session Information Location Bedside Environmental Stimulation Moderate Patient Effort and Participation Fair Purpose/Target Impairment Pain Assessment Pain Assessment 0-10 Pain Score 0 Attention Attention Skill(s) [specify if applicable; eg, sustained] Attention-visual Task Employed Functional reaching/targeting Level of Task Difficulty Basic Additional Explanation: Activity Pt particpated in non-structured task targeting L-sided visual attention. Pt required TOTAL A and multimodal cues for increasing attention to L visual field. Level of Assistance Total assistance Cue/Prompt Type Multimodal Cue/Prompt Intensity Total Situation During or as therapeutic activity Orientation Activity Component(s) Place;Time;Situation/Etiology/Injury Additional Explanation: Activity Pt oriented to hospital and dx given min verbal cues. Pt oriented to TANYA, year, and hospital name given extensive review and max cues. However, pt unable to demonstrate carryover of orientation information following greater than 5-10 min delay. Level of Assistance Maximal prompting Cue/Prompt Type Verbal;Visual Cue/Prompt Intensity Maximum Compensatory Strategy Training [specify strategy] external aids; repetition Situation During or as therapeutic activity Memory Memory Skill(s) [specify if applicable; eg, STM, LTM] Delayed recall;Immediate recall;Short term Task Employed Recall recent events;Recall verbal information Level of Task Difficulty Basic Additional Explanation: Activity Pt demonstrated immediate and delayed recall of verbally presented information in 3/3 opp given min-mod cues. Pt unable to recall recent events despite max cues. Level of Assistance Maximal prompting Cue/Prompt Type Verbal Cue/Prompt Intensity Maximum Situation Stand alone activity Problem Solving Reasoning Skill(s) [specify if applicable; eg, abstract] Insight/self-awareness;Basic Task Employed Safe/unsafe scenario Level of Task Difficulty Basic Additional Explanation: Activity Pt with poor insight into deficits. Insight training provided with min-no carryover appreciated despite max cues. 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 re-instructed pt in use of call-light, given max assist, pt activated call light in x3 opp. Pt answered simple safety questions given mod-max verbal cues. Level of Assistance Maximal prompting Cue/Prompt Type Verbal;Tactile;Visual Cue/Prompt Intensity Maximum Situation During or as therapeutic activity Problem Solving Score Solves Complex Problems No Solves Routine Problems Patient solves routine problems 25% to 49% of the time, needs direction more than half the time to initiate, plan, or complete simple daily activities, and may need restraint for safety Functional Bourbon Measure Problem Solving Maximal prompting - 2 Memory Score Recognizes, Remembers Routines, and Executes Requests Without Prompting No Remembers and Executes Requests With Prompting Patient recognizes and remembers 25% to 49% of the time, and needs prompting more than half the time Functional Bourbon Measure Memory Maximal prompting - 2 Goals: Encounter Goals Encounter Goals (Active) LTG - Patient will participate in ongoing diagnostic assessments to determine plan of care Start: 09/06/24 Expected End: 09/28/24 STG - Patient will participate in ongoing diagnostic assessments to determine plan of care Start: 09/06/24 Expected End: 09/28/24 LTG - Orientation to self, time, place, and situation Start: 09/15/24 STG - Express orientation information Start: 09/15/24 LTG - Comprehension of single words and simple expressions Start: 09/15/24 STG - Answer yes/no questions Start: 09/15/24 LTG - Patient will improve on swallowing outcome measure Start: 09/15/24 STG - Improve bolus formation Start: 09/15/24 [place] Cano 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 [facility]ER [employer] * Bernadette Norton MD - 09/21/2024 9:52 PM MANAGER WIRELESS Physical Medicine & Rehabilitation Daily Progress Note Code status: Full Code Current diet: Adult Diet Dysphagia; 0 - Thin Liquids; 5 - Minced & Moist (Dysphagia Ground); 1:1 Feeding Isolation: No active isolations Allergies: Patient has no known allergies. Subjective: No events report last night by nursing. Pain is controlled Orthostasis improved Low blood glucoses today Objective: Sleep hours logged Nighttime Sleep Hours: 6 hrs Last Bowel Movement: Last BM Date: 09/21/24 Stool Color: Brown Stool Appearance: Formed Stool Amount: Medium Bowel Incontinence: Yes Bowel Elimination Assistance Level: Completely dependent Labs Lab Results Component Value Date WBC 8.30 09/18/2024 Hgb 11.9 (L) 09/18/2024 Hct 37.5 09/18/2024 Plt Count 310 09/18/2024 Cholesterol 149 08/19/2024 Triglycerides 83 08/19/2024 HDL Cholesterol 46.4 08/19/2024 ALT 15 09/18/2024 AST 25 09/18/2024 Sodium Lvl 140 09/18/2024 Potassium Lvl 4.6 (H) 09/18/2024 Chloride Lvl 104 09/18/2024 Creatinine Lvl 1.07 09/18/2024 BUN 17 09/18/2024 CO2 Lvl 28.0 09/18/2024 INR 0.95 08/19/2024 Hgb A1C 9.40 (H) 08/19/2024 Vitals Vitals: 09/21/24 1734 09/21/24 1915 09/21/24210409/21/242112 BP: 152/65 145/62 Pulse: 96 90 87 89 Resp: 20 20 20 Temp: 36.7 ?C (98 ?F) SpO2: 99% 100% 24 Hr Tmax: Temp (24hrs), Av.6 ?C (97.9 ?F), Min:36.3 ?C (97.4 ?F), Max:36.8 ?C (98.3 ?F) Latest Weight: 82.3 kg (181 lb 7 oz) Intake & Output Intake/Output Summary (Last 24 hours) at 09/21/2024 2152 Last data filed at 09/21/2024 0500 Gross per 24 hour Intake -- Output 2 ml Net -2 ml I/O last 3 completed shifts: In: - (0 mL/kg) Out: 3 (0 mL/kg) [Stool:3] Weight: 82.3 kg No intake/output data recorded. Medications [Held by provider] amLODIPine, 10 mg, Oral, Daily aspirin, 324 mg, Nasogastric, Daily atorvastatin, 80 mg, Oral, Daily bisacodyl, 10 mg, Rectal, Every evening Boost Glucose Control, 1 Container, Oral, TID with meals caffeine, 100 mg, Oral, BID Docusate Sodium, 100 mg, Per G Tube, q12h heparin, 5,000 Units, Subcutaneous, q8h influenza vaccine, 0.5 mL, Intramuscular, During hospitalization insulin glargine, 22 Units, Subcutaneous, Every evening ipratropium-albuterol, 3 mL, Nebulization, q6h losartan, 75 mg, Oral, Daily melatonin, 3 mg, Per G Tube, Nightly mirtazapine, 15 mg, Oral, Nightly modafinil, 100 mg, Oral, BID polyethylene glycol (PEG) 3350, 17 g, Per G Tube, q12h sennosides, 1 tablet, Oral, Nightly PRN medications: bisacodyl, dextrose, glucagon, insulin lispro, levETIRAcetam, magnesium hydroxide, midazolam, sodium chloride Physical Exam:General: in no distress HEENT: moist mucous membranes; left ptosis CV: no peripheral cyanosis Pulm: normal respiratory effort GI: non-distended abdomen Derm: no rashes or ulcers in areas examed Psych: calm, cooperative DIAGNOSES & PROBLEMSPrincipal Problem: 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 male with hx of prior ischemic stroke w/ no residual deficits, HTN, DM2, lung cancer (last treatment 2021) who presented to [facility] on 08/19 w/ left sided weakness and neglect, found to have R MCA stroke s/p TNK and endovascular thrombectomy on 08/19 with subsequent improvement in strength and mentation. Mild hemorrhagic conversion. Acute care course c/b CAP s/p completion of abx on 08/28/24 Right middle cerebral artery strokeStable neurologic status; admission imaging did show some minimal hemorrhagic conversion Completed 21 days of dual antiplatelet therapy and currently on aspirin monotherapy in addition to atorvastatin for secondary stroke prevention Left hemiparesisOngoing work on neuromuscular education Cognitive deficitsSevere; arousal is the most problematic at this time Continued on caffeine and modafinil; continued trial of twice daily modafinil Gait abnormalityOngoing work on independence in mobility with physical and Occupational Therapy DysarthriaOngoing work on articulation strategies speech-language pathology HypertensionBlood pressure is controlled on current dosages of amlodipine and losartan HyperglycemiaContinued on long-acting glargine as well as Premeal insulin Blood glucoses are still variable; ongoing adjustments from internal medicine Sleep dysfunctionContinue scheduled melatonin and mirtazapine Neurogenic bowelMonitor for constipation on docusate, senna, and MiraLAX Neurogenic bladderVoiding spontaneously; work on continence through time voids MalnutritionDietitian following closely; continued on diabetic supplements Continue with an increase in mirtazapine to improve dietary intake DVT prophylaxisContinue on subcutaneous heparin CODE STATUS: Full Disposition:To home with assistance from family - tentative on 09/27/24 Follow-up:[place] neurolog[facility] within 2 weeks of discharge Primary care provider within 2 weeks of discharge Miguel Norton [id number] * [place] Cano CCC-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 - 09/21/2024 2:27 PM MANAGER WIRELESS Speech-Language Pathology Treatment Session Note Patient Name: Chaitanya Tena Today's Date: 09/21/2024 Preferred Language: Tanzanian 09/21/24 1427 Time Calculation Start Time 1427 Stop Time 1516 Time Calculation (min) 49 min General Amount of Missed Time (min) 11 Minutes Missed Time Reason Other (Comment) (Transition b/w sessions) Session Information Location Quiet space Environmental Stimulation Quiet Patient Effort and Participation Fair Purpose/Target Impairment;Activity limitation Pain Assessment Pain Assessment 0-10 Pain Score 0 Attention Attention Skill(s) [specify if applicable; eg, sustained] Attention-visual Task Employed Functional reaching/targeting Level of Task Difficulty Basic Additional Explanation: Activity Pt located objects in immediate environement in 33% of opp, all located objects were placed in R visual field and at midline. Pt unable to locate items in L visual field despite TOTAL A. Level of Assistance Total assistance Cue/Prompt Type Multimodal Cue/Prompt Intensity Total Situation During or as therapeutic activity Comprehension Commands [specify number of steps] Pt followed single step commands in ~80% of opp given mod verbal cues Orientation Activity Component(s) Place;Time;Situation/Etiology/Injury Additional Explanation: Activity 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 provided extensive review of orientation information. Spaced retrieval training completed for recall of TANYA and year. Pt able to recall TANYA and year for max of 7 minutes. Carryover not appreciated at end of session. Pt is oriented to general location and dx given mod verbal cues. Level of Assistance Maximal prompting Cue/Prompt Type Verbal Cue/Prompt Intensity Maximum Compensatory Strategy Training [specify strategy] external aids; repetition Situation During or as therapeutic activity Comprehension Score Comprehends Complex or Abstract Information Without Prompting or Cueing No Mode of Comprehension Auditory Understands Directions and Conversations About Daily Needs Patient understand directions and conversation about basic daily needs 50% to 74% of the time Functional Bourbon Measure Comprehension Moderate prompting - 3 Memory Score Recognizes, Remembers Routines, and Executes Requests Without Prompting No Remembers and Executes Requests With Prompting Patient recognizes and remembers 25% to 49% of the time, and needs prompting more than half the time Functional Bourbon Measure Memory Maximal prompting - 2 Goals: Encounter Goals Encounter Goals (Active) LTG - Patient will participate in ongoing diagnostic assessments to determine plan of care Start: 09/06/24 Expected End: 09/28/24 STG - Patient will participate in ongoing diagnostic assessments to determine plan of care Start: 09/06/24 Expected End: 09/28/24 LTG - Orientation to self, time, place, and situation Start: 09/15/24 STG - Express orientation information Start: 09/15/24 LTG - Comprehension of single words and simple expressions Start: 09/15/24 STG - Answer yes/no questions Start: 09/15/24 LTG - Patient will improve on swallowing outcome measure Start: 09/15/24 STG - Improve bolus formation Start: 09/15/24 [place] Cano 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 GER WIRELESS * Ruthy Hill - 09/21/2024 2:04 PM MANAGER WIRELESS Spiritual Care Subjective Pt was laying in bed and was alert. Pt still seems confused. Manager [employer] and pt discussed his daughters. No new issues were discussed during visit. Reason For Visit Care Recipient: Patient Time spent: 15 minutes Reason for Visit: Follow-up visit Interventions Relationship Building Interventions: Cultivated a relationship of care and support, Provided compassionate presence, Listened with empathy Exploration Interventions: Explored relational needs and resources Empowerment Interventions: Provided vascular technologist sonographer education Outcomes Expressed: Gratitude Expressed gratitude: Observed Outcome unknown: Observed Assessment Spiritual Resources: Gratitude Relational Resources: Family Plan Follow-up: Follow as circumstances allow Follow-up For: Emotional support, Spiritual support GER WIRELESS * Tiana Slaughter OT - 09/21/2024 10:15 AM MANAGER WIRELESS Facility Dog Facility Dog Note Patient Name: Chaitanya Tena Date of Admission: 09/05/2024 Today's Date: 09/21/2024 Preferred Language: Tanzanian 09/21/24 1015 Time Calculation Start Time 1015 Stop Time 1100 Time Calculation (min) 45 min General Reason for Facility Dog Consult Improved attention;Increased participation in therapies/treatment Intervention Type Co-treat Co-Treatment With Occupational Therapy Intervention Provided to Patient Chart Review Completed Yes Pain Assessment Pain Assessment 0-10 Pain Score 0 Baseline Assessment Affect Before Intervention Calm Intervention Goal of Facility Dog Intervention Participation/motivation;Psychosocial/emotional support Participation/Motivation Intervention Expressive and receptive communication;Fine motor activities;Gross motor activities;Sensory stimulation/engagement;Cognitive skills Patient participated in animal assisted intervention with [facility] Facility Dog, Bing, while seated EOM. Significant cueing for attention to L and maintaining attention to tasks presented which included: - visually scanning to L to find facility dog upon arrival - petting facility dog seated on L side of mat - reaching forward and to R to pet and brush facility dog - reach to receive and return pictures from/to facility dog - reaching forward with bilat UE to roll large physioball back/forth to facility dog Psychosocial/emotional Support Interventions Social engagement;Normalize hospital environment Post-Intervention Assessment Affect Post-Intervention Calm Patient's Response to Facility Dog Intervention Actively engaged. Patient demonstrates enjoyment and increased participation and attention with presence of facility dog - functional deficits limit sustained interaction Plan Plan Future visits recommended as able Future Visit Types Co-Treatment Future Visits Co-Treatment With Occupational Therapy Recommended Session Duration Other (Comment) (30-45 min) Tiana Slaughter OT TIRSvetlana Facility Dog [place] GER WIRELESS * Derrell Davis OT - 09/21/2024 10:00 AM MANAGER WIRELESS Treatment Session Note Patient Name: Chaitanya Tena Today's Date: 09/21/2024 Preferred Language: Tanzanian Assessment & Plan Assessment: OT Assessment: Pt with improved participation with facility dog. Pt demo improved sitting balance at EOM. Pt with variable visual attention throghout the sesion Plan: Treatment Plan/Goals Established with Patient/Caregiver: Yes Treatment Interventions: ADL retraining, Cognitive reorientation, Aquatic therapy, Compensatory technique education, Endurance training, Equipment evaluation/education, Functional transfer training, Fine motor coordination activities, Neuromuscular reeducation, Orthotic/Orthotic management, Patient/family training, Positioning, UE strengthening/ROM, Visual perceptual retraining OT Plan: Skilled OT OT Frequency: 5-7 times per week OT Planned Treatments: Work simplification, Discharge, Activities of Daily Living, Aquatics, Balance training, Caregiver training, Casting, Cognitive training, Coordination, Developmental skills training, Discharge/Discontinue OT treatment, Dry needling, Edema managment, Electric modalities, Energy conservation training, Equipment assessment, Equipment training, Group therapy, Home program, Joint protection, Manual therapy, Mobility training, Neuromuscular reeducation, Orthotic, Pain management, Patient education, Prevocational training, Safety education, Seating/Positioning, Sensory integration, Spasticity Managment, Splinting, Taping, Therapeutic activities, Therapeutic exercises, Thermal modalities, Visual and perceptual training OT Duration: 3-4 weeks Subjective Pain: Pain Assessment Pain Assessment: DVPRS (09/21/2024999) Pain Score: 0 (09/21/2024999) Pain Rating Scale (DVPRS): No pain (09/21/2024999) Vital Signs: Patient Vitals for the past 12 hrs: BP MAP (mmHg) Pulse Resp SpO2 09/21/24 1323 -- -- 91 18 100 % 09/21/24 1313 -- -- 94 18 95 % 09/21/24 1241 -- -- 85 -- -- 09/21/24 1228 131/61 84 -- -- -- 09/21/24 0900 -- -- 85 -- -- 09/21/24 0727 132/62 -- 85 18 95 % No data found. Objective 09/21/24 1000 Time Calculation Start Time 1000 Stop Time 1100 Time Calculation (min) 60 min Co-Treatment Co-Treatment Yes Co-Treatment With Facility System Support Developer Primary Therapist Occupational Therapy Pain Assessment Pain Assessment DVPRS Pain Score 0 Pain Rating Scale (DVPRS) 0 Transfers Transfer Yes Transfer 1 Level of Assistance 1 Supervision/touching assistance Trials/Comments 1 x2 Transfer To/From Chair;Mat Assistive Devices And Adaptive Equipments No device Therapeutic Procedures Time Entry Neuromuscular Re-Education Time Entry 45 Therapeutic Activity Time Entry 15 Therapeutic Activity Therapeutic Activity 1 pt particiapated in card game activity with therapy dog and req cues for visual attention Balance/Neuromuscular Re-Education Balance/Neuromuscular Re-Education Activity 1 pt particiapted in forward excursions with RUE req cues for visual scanning and attention Position 1 Seated Balance/Neuromuscular Re-Education Activity 2 reaching forward to toss the ball to therapy dig; req cues to maintain sitting balance and accuracy of the task Position 2 Seated Balance/Neuromuscular Re-Education Activity 3 particiapted in trunk rotation activity on L of mat to brush the facility dog; req cues turn d/t visual deficits OT Assessment OT Assessment Pt with improved participation with facility dog. Pt demo improved sitting balance at EOM. Pt with variable visual attention throghout the sesion Patient Education: Education Documentation No documentation found. Education Comments No comments found. Goals: Encounter Goals Encounter Goals (Active) Patient will perform grooming with minimum assist for improved independence with ADLs (Progressing) Start: 09/06/24 Expected End: 09/27/24 Patient will perform feeding with minimum assist for improved independence with ADLs (Progressing) Start: 09/06/24 Expected End: 09/27/24 Patient will perform upper body dressing with minimum assist to improve independence with dressing. (Progressing) Start: 09/06/24 Expected End: 09/27/24 Patient will perform lower body dressing with moderate assist to improve independence with dressing. (Progressing) Start: 09/06/24 Expected End: 09/27/24 Pt and/or caregiver(s) will have all appropriate DME, recommendations, or completed prescriptions to maximize pt's safety and independence at discharge. (Progressing) Start: 09/06/24 Expected End: 09/27/24 Patient and/or caregivers will verbalize understanding of home program including safety tips, equipment instructions, and home exercises. (Progressing) Start: 09/06/24 Expected End: 09/27/24 Patient will participate in forced use activities using the affected upper extremity with minimum assistance to inhibit abnormal movement patterns. (Progressing) Start: 09/06/24 Expected End: 09/27/24 Patient will incoporate their affected upper extremity with minimal assist/cues during functional task performance. (Progressing) Start: 09/06/24 Expected End: 09/27/24 Patient will participate in seating and mobility trials to improve posture, reduce tone, and prevent secondary complications. (Progressing) Start: 09/06/24 Expected End: 09/27/24 Derrell Davis OT [facility] * Thelma Cuevas, PT - 09/21/2024 9:00 AM MANAGER [facility] Treatment Session Note Patient Name: Chaitanya Tena Today's Date: 09/21/2024 Preferred Language: Tanzanian Assessment & Plan Assessment: PT Assessment: Pt improves ambulation to ~145 feet at a time with PT posteriorly providing touching A and PT tech in front providing max verbal cueing. PT practices using restroom with pt. However, pt limited by severe inattention and unable to find the toilet. Pt finally performs stand step transfer to toilet with partial A and max VC but noted to be incontinent of bowel. Plan: Treatment Plan/Goals Established with Patient/Caregiver: Yes PT Frequency: 60-90 minutes per day Equipment Recommended: DME toileting, DME bathing PT Planned Treatment: Age appropriate play, Aquatic therapy, Assistive technology, Balance training, Basic activities of daily living, Bed mobility training, Body weight support treadmill training, Caregiver training, Community/Work reintegration, Compression wrapping, Desensitization program, Developmental skills training, Edema management, Electric modalities, Equipment training, Gait training, Group therapy, Home assessment/modification, Manual therapy, Mechanical modalities, Neuromuscular reeducation, Orthotic training, Pain management, Patient education, Positioning, Posture/Body mechanics training, Robotic assisted walking therapy, Spasticity Management, Seating, Stair training, Taping, Therapeutic activities, Therapeutic exercises, Thermal/Light modalities, Transfer training Duration: 3-4 weeks Subjective 9:00: Pt received supine in bed asleep. Pt left seated in [facility], handoff to PCT to assist pt with breakfast due to need for 1:1 feed. 11:00 Pt received sitting in [facility] in room with handoff from OT. Pt left supine in bed with PCT aware of bowel incontinence. Pain: Pain Assessment Pain Assessment: 0-10 (09/21/20241099) Pain Score: 0 (09/21/20241099) Pain Rating Scale (DVPRS): No pain (09/21/20241099) DVPRS 900: 0/10 Vital Signs: Patient Vitals for the past 12 hrs: BP Pulse Resp SpO2 09/21/24 0900 -- 85 -- -- 09/21/24 0727 132/62 85 18 95 % No data found. Objective 09/21/24 0900 09/21/24 1100 General Amount of Missed Time (min) -- 5 Minutes Missed Time Reason -- Bowel/bladder accident Time Calculation Start Time 899 1100 Stop Time 0930 1155 Time Calculation (min) 30 min 55 min Pain Assessment Pain Assessment 0-10 0-10 Pain Score 0 0 Pain Rating Scale (DVPRS) -- 0 Therapeutic Activity Therapeutic Activity Time Entry 20 25 Therapeutic Activity 1 increased time for getting pt out of bed due to pt just waking up pt trying to utilize toilet, stand step transfer and able to stand while PT dependently doffs pants. However, pt noted to be incontinent of bowel and returned to bed Bed Mobility Bed Mobility Yes Yes Bed Mobility 1 Level of Assistance 1 Partial/Mod assistance Supervision/touching assistance Bed Mobility Comments 1 pt just needing assist due to falling backwards -- Bed Mobility To/From Supine to sit on EOB Supine to sit on EOB Assistive Devices And Adaptive Equipments No device No device Lying to Sitting on Side of Bed Assistance Needed Physical assistance -- Physical Assistance Level 26%-50% -- CARE Score - Lying to Sitting on Side of Bed 3 -- Sit to Lying Assistance Needed -- Supervision;Incidental touching Physical Assistance Level -- 25% or less CARE Score - Sit to Lying -- 3 Transfers Transfer Yes Yes Transfer 1 Technique 1 Stand pivot -- Level of Assistance 1 Partial/Mod assistance Supervision/touching assistance Trials/Comments 1 towards L side x 3 times during gait training Transfer To/From Bed;Wheelchair Srv-wi-Hszjo/[id number]-[id number] Assistive Devices And Adaptive Equipments No device Walker, four-wheeled Transfers 2 Technique 2 Stand pivot Stand step Level of Assistance 2 Partial/Mod assistance Partial/Mod assistance Trials/Comments 2 towards R side max VC Transfer To/From Wheelchair;Mat Wheelchair;Toilet Assistive Devices And Adaptive Equipments No device No device Transfers 3 Technique 3 -- Stand pivot Level of Assistance 3 Supervision/touching assistance Partial/Mod assistance Transfer To/From Ufn-ny-Ehuzo/Qzlpa-tw-Cuk Wheelchair;Bed Assistive Devices And Adaptive Equipments No device No device Chair/Qoi-ke-Uvbwa Transfer Assistance Needed Physical assistance -- Physical Assistance Level 26%-50% -- Comment stand pivot -- CARE Score - Chair/Zop-gr-Jhjrr Transfer 3 -- Sit to Stand Assistance Needed Physical assistance Physical assistance Physical Assistance Level 25% or less 26%-50% CARE Score - Sit to Stand 3 3 Gait Training Gait Training Time Entry -- 30 Gait Training Activity -- Yes Gait Training Activity 1 Distance (enter in feet) -- 3 x 145 feet Assistive Devices And Adaptive Equipments -- Walker, four-wheeled Level of Assistance 1 -- Dependent Gait Training Activity 1 Comment -- pt touching A with RW; however requiring PT tech in front helping to show pt which way to go and providing max verbal and tactile cueing due to severe neglect Surface And Method -- Over ground;Indoor;Even surface General Gait Deviations -- Decreased kamila;Shuffling;Forward trunk lean Walk 10 Feet Assistance Needed -- Physical assistance Physical Assistance Level -- Total assistance Comment -- touching A but requires 2 POH CARE Score - Walk 10 Feet -- 1 Walk 50 Feet with Two Turns Assistance Needed -- Physical assistance Physical Assistance Level -- Total assistance Comment -- touching A but requires 2 POH CARE Score - Walk 50 Feet with Two Turns -- 1 Balance/Neuromuscular Re-Education Neuromuscular Re-Education Time Entry 10 -- Activity Component(s) 1 Dynamic;Standing;Sitting -- Assistive Devices And Adaptive Equipments No device -- Balance/Neuromuscular Re-Education Activity 1 sitting balance static -- Balance/Neuromuscular Re-Education Activity 2 standing balance static with touching A x 2 mins -- Balance/Neuromuscular Re-Education Activity 3 dynamic balance be practicing forward and backwards steps x 2 feet forward and 2 feet backward, initially requiring partial A but requires total A to get back to [facility] due to confusion -- Wheel 50 Feet with Two Turns Assistance Needed Physical assistance Physical assistance Physical Assistance Level Total assistance Total assistance CARE Score - Wheel 50 Feet with Two Turns 1 1 Type of Wheelchair/Scooter Manual Manual Wheel 150 Feet Assistance Needed Physical assistance Physical assistance Physical Assistance Level Total assistance Total assistance CARE Score - Wheel 150 Feet 1 1 Type of Wheelchair/Scooter Manual Manual PT Assessment PT Assessment Pt demonstrates increased pushing behavior with R arm, 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 Pt tolerates treatment well. Pt improves ambulation to ~145 feet at a time with PT posteriorly providing touching A and PT tech in front providing max verbal cueing. PT practices using restroom with pt. However, pt limited by severe inattention and unable to find the toilet. Pt finally performs stand step transfer to toilet with partial A and max VC but noted to be incontinent of bowel. Patient Education: Education Documentation No documentation found. Education Comments No comments found. Goals: Encounter Goals Encounter Goals (Active) Pt will perform all bed mobility independently (Progressing) Start: 09/06/24 Expected End: 09/27/24 Goal Note Performing with verbal cues and SVN LTG: Pt will ambulate > 150 ft with SPV and LRAD (Progressing) Start: 09/06/24 Expected End: 09/27/24 Goal Note Continuing to trial ambulation with and without RW LTG: Pt will improve BBS to 36/56 to indicate decreased risk for falls (Progressing) Start: 09/06/24 Expected End: 09/27/24 Goal Note 09/18: scores 9/36 STG: Pt will improve BBS to >13/56 to indicate decreased risk for falls (IE5/56, MDC 6.9 pts) (Progressing) Start: 09/06/24 Expected End: 09/20/24 Goal Note 09/18: scores 9/36 Within 2 weeks of starting therapy, the patient and/or family/caregiver will demonstrate independence and be compliant in a written HEP in order to maximize gains made during therapy. (Progressing) Start: 09/06/24 Expected End: 09/27/24 Goal Note Continuing to assess for appropriate HEP LTG: Pt will perform stand step transfers with set-up assist and LRAD (Progressing) Start: 09/06/24 Expected End: 09/27/24 Goal Note Performing with partial A STG: Pt will perform stand step transfers with touch A and LRAD (Progressing) Start: 09/06/24 Expected End: 09/20/24 Goal Note Performing with partial A Encounter Goals (Resolved) STG: Assess gait as appropriate (Completed) Start: 09/06/24 Expected End: 09/13/24 Resolved: 09/12/24 Goal Note Gait with RW and 2 POH Thelma Cuevas PT [facility] * JONATHAN WattAUTOCAD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 - 09/20/2024 3:33 PM MANAGER WIRELESS Speech-Language Pathology Treatment Session Note Patient Name: Chaitanya Tena Today's Date: 09/20/2024 Preferred Language: Tanzanian 09/20/24 1533 Time Calculation Start Time 1533 Stop Time 1600 Time Calculation (min) 27 min General Amount of Missed Time (min) 3 Minutes Missed Time Reason Other (Comment) (transition b/w tx sessions) Session Information Location Common room Environmental Stimulation Minimal Patient Effort and Participation Good Purpose/Target Impairment Pain Assessment Pain Assessment 0-10 Pain Score 0 Swallowing Activity Component(s) PO Trials Additional Explanation: Activity Pt completed PO trials of soft and bite-sized solids x6, demonstrated adequate acceptance, disorganized mastication, intermittent anterior loss, and mod oral residues post swallow. MOD-MAX verbal/tactile cues provided to improve attention to L-sided pocketing. Additional dry swallows and liquid rinses effective at reducing oral residues; however, not completely eliminating residue. Pt noted with intermittent delayed cough following liquid rinses. Level of Assistance Maximal assist Cue/Prompt Type Verbal;Tactile Cue/Prompt Intensity Mod-Max Compensatory Strategy Training [specific strategy] additional dry swallows and liquid rinses Situation During or as therapeutic activity Goals: Encounter Goals Encounter Goals (Active) LTG - Patient will participate in ongoing diagnostic assessments to determine plan of care Start: 09/06/24 Expected End: 09/28/24 STG - Patient will participate in ongoing diagnostic assessments to determine plan of care Start: 09/06/24 Expected End: 09/28/24 LTG - Orientation to self, time, place, and situation Start: 09/15/24 STG - Express orientation information Start: 09/15/24 LTG - Comprehension of single words and simple expressions Start: 09/15/24 STG - Answer yes/no questions Start: 09/15/24 LTG - Patient will improve on swallowing outcome measure Start: 09/15/24 STG - Improve bolus formation Start: 09/15/24 JONATHAN WattAUTOCAD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 [facility] * Cecile Stuart, MT-BC - 09/20/2024 1:30 PM MANAGER W[facility] Neurologic Music Therapy Session Treatment Target: Neglect Training Patient Name: Chaitanya Tena : 1945 Admit Date: 09/05/2024 Patient Diagnosis: Diagnoses that have been ruled out: None Diagnoses that are still under consideration: None Final diagnoses: Acute stroke due to thrombosis of right middle cerebral artery (HCC) (Primary) Hemiparesis affecting left side as late effect of stroke (CMS/HCC) (HCC) Other abnormalities of gait and mobility Cognitive communication deficit Other hyperlipidemia Other sleep disorders Neurogenic bowel Other neuromuscular dysfunction of bladder Diabetes mellitus due to underlying condition with hyperglycemia, without long-term current use of insulin (HCC) Primary hypertension Intracranial atherosclerosis 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) Uncontrolled type 2 diabetes mellitus with hyperglycemia (HCC) Referring Practitioner: Chaitanya Lewis Today's Date: 09/20/2024 Preferred Language: Tanzanian Objective Note: Upon arrival, Patient was seated EOM in care of PT. Patient was seen for a co-treatment with physical therapy to target neglect training. Patient participated in Cognitive Rehabilitation via MNT. Patient was able to complete activity with MIN assist with 60% accuracy, and verbal, visual, and model cues. Patient Handoff completed with all needs met in care of PT. Treatment 09/20/24 1130 Session Information Session Date 09/20/24 Session Time In 1130 Session Time Out 1200 Session Overview Session Type Co-treat Consent For Session Provided By Other (Comment) (PT) Location Of Session 1st floor gym Patient Positioning For Session Seated EOM / Standing / Ambulating Present Upon Arrival Staff Session Description Physical Domain Goals Promote upper extremity engagment Physical Domain Observed Patient Response Increased use of upper extremities Physical Domain Outcome With auditory/tactile/visual cues;With prompting Cognitive/Neurological Domain Goals Increase/Encourage visual attention Cognitive/Neurological Domain Observed Patient Response Increased visual attention Cognitive/Neurological Domain Patient Outcome With prompting;With auditory/tactile/visual cues Music Therapy Interventions Sensorimotor Rhythmic Auditory Stimulation (CHAN) Cognitive Musical Neglect Training (MNT) Recommendations Recommendations For Future Sessions Continue music therapy services;Co-treat with Co-treat With Physical Therapy Recommended Frequency 2-3/week CHAN (Rhythmic Auditory Stimulation) Assistance Device Kamila Distance Notes MIN-MOD None ~40 bpm 125 ft 1 rest break Impression and Plan Recommendations Pt demo'ed improved gait pattern with introduction of CHAN, although required MAX verbal and visual cues for turns. Demo'ed better visual attention at midline. Highly distractible this date, perhaps due to high stim environment in therapy gym. Severe L visual neglect continues, although he is occasionally able to "scan" to the L with drum play. Requires MAX auditory, visual, and verbal cues for redirection to task at hand once his gaze reaches midline or strays R. Goals Encounter Goals Encounter Goals (Active) Patient will participate in therapeutic activities that promote sensory and/or motor neurorecovery of Upper Extremities without adverse side effects with IND assistance. (Progressing) Start: 09/14/24 Expected End: 09/27/24 Patient will complete mass repetition of sit to stands for improved functional lower extremity strength. (Progressing) Start: 09/14/24 Expected End: 09/27/24 Patient will complete gross motor tasks of left UE with MIN assist for 5 minutes to increase independence in ADLs/IADLs. (Progressing) Start: 09/14/24 Expected End: 09/27/24 Patient will track stimuli visually through Left and Multi plane visual ferro with 50% accuracy given MAX cues. (Progressing) Start: 09/14/24 Expected End: 09/27/24 AYAKA Castillo [facility] * Bernadette Norton MD - 09/20/2024 1:01 PM MANAGER WIRELESS Physical Medicine & Rehabilitation Daily Progress Note Code status: Full Code Current diet: Adult Diet Dysphagia; 0 - Thin Liquids; 5 - Minced & Moist (Dysphagia Ground); 1:1 Feeding Isolation: No active isolations Allergies: Patient has no known allergies. Subjective: No events report last night by nursing. Pain is controlled Orthostasis improved Objective: Sleep hours logged Nighttime Sleep Hours: 8 hrs Last Bowel Movement: Last BM Date: 09/19/24 Stool Color: Brown Stool Appearance: Other (Comment) (pasty) Stool Amount: Large Bowel Incontinence: Yes Bowel Elimination Assistance Level: Completely dependent Labs Lab Results Component Value Date WBC 8.30 09/18/2024 Hgb 11.9 (L) 09/18/2024 Hct 37.5 09/18/2024 Plt Count 310 09/18/2024 Cholesterol 149 08/19/2024 Triglycerides 83 08/19/2024 HDL Cholesterol 46.4 08/19/2024 ALT 15 09/18/2024 AST 25 09/18/2024 Sodium Lvl 140 09/18/2024 Potassium Lvl 4.6 (H) 09/18/2024 Chloride Lvl 104 09/18/2024 Creatinine Lvl 1.07 09/18/2024 BUN 17 09/18/2024 CO2 Lvl 28.0 09/18/2024 INR 0.95 08/19/2024 Hgb A1C 9.40 (H) 08/19/2024 Vitals Vitals: 09/20/24 0753 09/20/24 0808 09/20/24 0844 09/20/24 1244 BP: (!) 140/59 102/66 Pulse: 85 88 88 Resp: 20 14 Temp: 36.4 ?C (97.6 ?F) SpO2: 95% 24 Hr Tmax: Temp (24hrs), Av.8 ?C (98.3 ?F), Min:36.4 ?C (97.6 ?F), Max:37.2 ?C (99 ?F) Latest Weight: 82.3 kg (181 lb 7 oz) Intake & Output No intake or output data in the 24 hours ending 09/20/24 1301 I/O last 3 completed shifts: In: 237 (2.9 mL/kg) [P.O.:237] Out: - (0 mL/kg) Weight: 82.3 kg No intake/output data recorded. Medications [Held by provider] amLODIPine, 10 mg, Oral, Daily aspirin, 324 mg, Nasogastric, Daily atorvastatin, 80 mg, Oral, Daily bisacodyl, 10 mg, Rectal, Every evening Boost Glucose Control, 1 Container, Oral, TID with meals caffeine, 100 mg, Oral, BID Docusate Sodium, 100 mg, Per G Tube, q12h heparin, 5,000 Units, Subcutaneous, q8h influenza vaccine, 0.5 mL, Intramuscular, During hospitalization insulin glargine, 22 Units, Subcutaneous, Every evening insulin lispro, 8 Units, Subcutaneous, TID with meals ipratropium-albuterol, 3 mL, Nebulization, q6h losartan, 75 mg, Oral, Daily melatonin, 3 mg, Per G Tube, Nightly mirtazapine, 15 mg, Oral, Nightly modafinil, 100 mg, Oral, BID polyethylene glycol (PEG) 3350, 17 g, Per G Tube, q12h sennosides, 1 tablet, Oral, Nightly PRN medications: bisacodyl, dextrose, glucagon, insulin lispro, levETIRAcetam, magnesium hydroxide, midazolam, sodium chloride Physical Exam:General: in no distress HEENT: moist mucous membranes; left ptosis CV: no peripheral cyanosis Pulm: normal respiratory effort GI: non-distended abdomen Derm: no rashes or ulcers in areas examed Psych: calm, cooperative DIAGNOSES & PROBLEMSPrincipal Problem: 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 male with hx of prior ischemic stroke w/ no residual deficits, HTN, DM2, lung cancer (last treatment 2021) who presented to [facility] on 08/19 w/ left sided weakness and neglect, found to have R MCA stroke s/p TNK and endovascular thrombectomy on 08/19 with subsequent improvement in strength and mentation. Mild hemorrhagic conversion. Acute care course c/b CAP s/p completion of abx on 08/28/24 Right middle cerebral artery strokeStable neurologic status; admission imaging did show some minimal hemorrhagic conversion Completed 21 days of dual antiplatelet therapy and currently on aspirin monotherapy in addition to atorvastatin for secondary stroke prevention Left hemiparesisOngoing work on neuromuscular education Cognitive deficitsSevere; arousal is the most problematic at this time Continued on caffeine and modafinil; continued trial of twice daily modafinil Gait abnormalityOngoing work on independence in mobility with physical and Occupational Therapy DysarthriaOngoing work on articulation strategies speech-language pathology HypertensionBlood pressure is controlled on current dosages of amlodipine and losartan HyperglycemiaContinued on long-acting glargine as well as Premeal insulin Blood glucoses are still variable; ongoing adjustments from internal medicine Sleep dysfunctionContinue scheduled melatonin and mirtazapine Neurogenic bowelMonitor for constipation on docusate, senna, and MiraLAX Neurogenic bladderVoiding spontaneously; work on continence through time voids MalnutritionDietitian following closely; continued on diabetic supplements Trialing an increase in mirtazapine to improve dietary intake DVT prophylaxisContinue on subcutaneous heparin CODE STATUS: Full Disposition:To home with assistance from family - tentative on 09/27/24 Follow-up:[place] [facility] within 2 weeks of discharge Primary care provider within 2 weeks of discharge Miguel Norton, FRANDYSO#[id number] [facility] * Thelma Cuevas PT - 09/20/2024 11:00 AM MANAGER [employer] Treatment Session Note Patient Name: Chaitanya Tena Today's Date: 09/20/2024 Preferred Language: Tanzanian Assessment & Plan Assessment: PT Assessment: Pt requiring increased assistance this afternoon, potentially due to fatigue and just having woken up. Pt continues to demonstrate significant variability in mobility and went from touching A with bed mobility to requiring substantial A this afternoon. Pt also with decreased ability to find WC despite WC being in front of him, requires PT tech to assist pt in turning in order to sit in chair after walking bout, Plan: Treatment Plan/Goals Established with Patient/Caregiver: Yes PT Frequency: 60-90 minutes per day Equipment Recommended: DME toileting, DME bathing PT Planned Treatment: Age appropriate play, Aquatic therapy, Assistive technology, Balance training, Basic activities of daily living, Bed mobility training, Body weight support treadmill training, Caregiver training, Community/Work reintegration, Compression wrapping, Desensitization program, Developmental skills training, Edema management, Electric modalities, Equipment training, Gait training, Group therapy, Home assessment/modification, Manual therapy, Mechanical modalities, Neuromuscular reeducation, Orthotic training, Pain management, Patient education, Positioning, Posture/Body mechanics training, Robotic assisted walking therapy, Spasticity Management, Seating, Stair training, Taping, Therapeutic activities, Therapeutic exercises, Thermal/Light modalities, Transfer training Duration: 3-4 weeks Subjective AM: Pt received sitting in [facility] in room, agreeable to therapy. Pt left seated in [facility] with PCT present. PM: Pt received supine in bed with the lights off, asleep. Pt left seated and secured in [facility]. Pain: Pain Assessment Pain Assessment: 0-10 (09/20/2024 1430) Pain Score: 0 (09/20/2024 1430) 09/20/24 1430 Time Calculation Start Time 1430 Stop Time 1457 Time Calculation (min) 27 min Pain Assessment Pain Assessment 0-10 Pain Score 0 11:00 DVPRS: 0/10 Vital Signs: Patient Vitals for the past 12 hrs: BP MAP (mmHg) Pulse Resp SpO2 09/20/24 1400 -- -- 85 20 95 % 09/20/24 1245 -- -- 88 -- -- 09/20/24 1244 102/66 78 -- -- -- 09/20/24 0844 -- -- 88 -- -- 09/20/24 0808 (!) 140/59 86 88 14 -- 09/20/24 0753 -- -- 85 20 95 % No data found. Objective 09/20/24 1100 09/20/24 1430 Time Calculation Start Time 1100 1430 Stop Time 1200 1457 Time Calculation (min) 60 min 27 min Co-Treatment Co-Treatment Yes -- Co-Treatment With Music Therapy -- Primary Therapist Physical Therapy -- Pain Assessment Pain Assessment 0-10 0-10 Pain Score 0 0 Therapeutic Activity Therapeutic Activity Time Entry 10 17 Therapeutic Activity 1 Dependent transport, tansfers increased time for bed mobility due to pt being hypoarousable and asleep prior to session Bed Mobility Bed Mobility -- Yes Bed Mobility 1 Level of Assistance 1 -- Independent Bed Mobility Comments 1 -- spontaneously Bed Mobility To/From -- Roll left/right Assistive Devices And Adaptive Equipments -- No device Bed Mobility 2 Level of Assistance 2 -- Substantial/Max assistance Bed Mobility Comments 2 -- pt with confusion as to what PT is asking, likely due to fatigue Bed Mobility To/From -- Supine to sit on EOB Assistive Devices And Adaptive Equipments -- Head of bed elevated Roll Left and Right Assistance Needed -- Independent Physical Assistance Level -- No physical assistance CARE Score - Roll Left and Right -- 6 Lying to Sitting on Side of Bed Assistance Needed -- Physical assistance Physical Assistance Level -- 51%-75% Comment -- HOB elevated CARE Score - Lying to Sitting on Side of Bed -- 2 Transfers Transfer Yes Yes Transfer 1 Technique 1 -- Stand pivot Level of Assistance 1 Supervision/touching assistance Substantial/Max assistance Trials/Comments 1 x 3 times during gait training towards L side Transfer To/From Quj-eu-Pvezh/Dwdli-oi-Xxv Bed;Wheelchair Assistive Devices And Adaptive Equipments Walker, four-wheeled No device Transfers 2 Level of Assistance 2 Partial/Mod assistance Supervision/touching assistance Trials/Comments 2 x 8 times from low mat height for gait training Transfer To/From Xyx-eo-Qmfme/Cmhip-eo-Rih Oyu-ly-Lllta/Hslpb-yl-Wpj Assistive Devices And Adaptive Equipments No device Walker, front-wheeled Transfers 3 Technique 3 Stand pivot -- Level of Assistance 3 Partial/Mod assistance -- Transfer To/From Zxhhzftlwa-cq-dzx/Tva-oi-tnjtwrxajy -- Assistive Devices And Adaptive Equipments No device -- Chair/Smd-zu-Ihwxh Transfer Assistance Needed Physical assistance Physical assistance Physical Assistance Level 26%-50% 51%-75% Comment stand pivot -- CARE Score - Chair/Cqh-vi-Ytyoo Transfer 3 2 Sit to Stand Assistance Needed Incidental touching;Supervision Incidental touching;Supervision Physical Assistance Level No physical assistance No physical assistance Comment with RW with RW CARE Score - Sit to Stand 4 4 Gait Training Gait Training Time Entry 25 10 Gait Training Activity Yes Yes Gait Training Activity 1 Distance (enter in feet) 3 x 75 feet 1 x 80 feet Assistive Devices And Adaptive Equipments Walker, four-wheeled Walker, four-wheeled Level of Assistance 1 Dependent Partial/Mod assistance Gait Training Activity 1 Comment festinating gait and small L step length, dependent due to need for WC follow but requiring touching A at hips pt unable to find WC at end, requiring PT tech to assist in guiding pt walker in order to turn and sit in chair Surface And Method Over ground;Indoor;Even surface Over ground;Indoor;Even surface Gait Training Activity 2 Distance (enter in feet) 2 x 60 feet -- Assistive Devices And Adaptive Equipments No device -- Level of Assistance 2 Partial/Mod assistance -- Gait Training Activity 2 Comment partial A at hips, max verbal cues from MT in front providing external cues for step legnth -- Surface And Method Over ground;Indoor;Even surface -- Walk 10 Feet Assistance Needed Physical assistance Physical assistance Physical Assistance Level Total assistance 26%-50% Comment 2 POH -- CARE Score - Walk 10 Feet 1 3 Walk 50 Feet with Two Turns Assistance Needed Physical assistance Physical assistance Physical Assistance Level Total assistance 26%-50% Comment 2 POH -- CARE Score - Walk 50 Feet with Two Turns 1 3 Balance/Neuromuscular Re-Education Neuromuscular Re-Education Time Entry 25 -- Activity Component(s) 1 Dynamic;Static;Sitting -- Assistive Devices And Adaptive Equipments No device -- Balance/Neuromuscular Re-Education Activity 1 participated in sitting balance and midline reorientation with music therapy: hitting drum with R and with L hand holding malet; max cues to hit drum and for tracking drum from R side to midline -- Balance/Neuromuscular Re-Education Activity 2 participated in standing balance activity while hitting drum and listening to choice music with music therapy -- Wheel 50 Feet with Two Turns Assistance Needed Physical assistance Physical assistance Physical Assistance Level Total assistance Total assistance CARE Score - Wheel 50 Feet with Two Turns 1 1 Type of Wheelchair/Scooter Manual Manual Wheel 150 Feet Assistance Needed Physical assistance Physical assistance Physical Assistance Level Total assistance Total assistance CARE Score - Wheel 150 Feet 1 1 Type of Wheelchair/Scooter Manual Manual PT Assessment PT Assessment Pt able to progress ambulation to ambulation with partial A from therapist. However, continues to need max verbal cueing due to confusion, decreased attention, and L hemineglect. Pt demonstates fair participation with MT but is easily distracted in busy environment and will likely benefit from less crowded environment. Step length of L leg improved with external cueing and MT providing cues via CHAN. Pt requiring increased assistance this afternoon, potentially due to fatigue and just having woken up. Pt continues to demonstrate significant variability in mobility and went from touching A with bed mobility to requiring substantial A this afternoon. Pt also with decreased ability to find WC despite WC being in front of him, requires PT tech to assist pt in turning in order to sit in chair after walking bout, Patient Education: Education Documentation No documentation found. Education Comments No comments found. Goals: Encounter Goals Encounter Goals (Active) Pt will perform all bed mobility independently (Progressing) Start: 09/06/24 Expected End: 09/27/24 Goal Note Performing with verbal cues and SVN LTG: Pt will ambulate > 150 ft with SPV and LRAD (Progressing) Start: 09/06/24 Expected End: 09/27/24 Goal Note Continuing to trial ambulation with and without RW LTG: Pt will improve BBS to 36/56 to indicate decreased risk for falls (Progressing) Start: 09/06/24 Expected End: 09/27/24 Goal Note 09/18: scores 9/36 STG: Pt will improve BBS to >13/56 to indicate decreased risk for falls (IE5/56, MDC 6.9 pts) (Progressing) Start: 09/06/24 Expected End: 09/20/24 Goal Note 09/18: scores 9/36 Within 2 weeks of starting therapy, the patient and/or family/caregiver will demonstrate independence and be compliant in a written HEP in order to maximize gains made during therapy. (Progressing) Start: 09/06/24 Expected End: 09/27/24 Goal Note Continuing to assess for appropriate HEP LTG: Pt will perform stand step transfers with set-up assist and LRAD (Progressing) Start: 09/06/24 Expected End: 09/27/24 Goal Note Performing with partial A STG: Pt will perform stand step transfers with touch A and LRAD (Progressing) Start: 09/06/24 Expected End: 09/20/24 Goal Note Performing with partial A Encounter Goals (Resolved) STG: Assess gait as appropriate (Completed) Start: 09/06/24 Expected End: 09/13/24 Resolved: 09/12/24 Goal Note Gait with RW and 2 POH Thelma Cuevas PT [facility] * Phoenix Cano 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 - 09/20/2024 10:34 AM MANAGER WIRELESS Speech-Language Pathology Treatment Session Note Patient Name: Chaitanya Tena Today's Date: 09/20/2024 Preferred Language: Tanzanian 09/20/24 1034 Time Calculation Start Time 1034 Stop Time 1058 Time Calculation (min) 24 min General Amount of Missed Time (min) 6 Minutes Missed Time Reason Other (Comment) (transition b/w tx sessions) Session Information Location Quiet space Environmental Stimulation Quiet Patient Effort and Participation Fair Purpose/Target Impairment Pain Assessment Pain Assessment 0-10 Pain Score 0 Attention Attention Skill(s) [specify if applicable; eg, sustained] Attention-visual Task Employed Orientation task Level of Task Difficulty Basic Additional Explanation: Activity Pt participated in basic task targeting L-sided visual attention. Pt required MAX multimodal cues for improved L-sided visual attention in order to locate external memory aids placed at midline. 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 provided pt education regarding L-inattention and instructed on use of strategy for scanning. Pt located targets placed at midline in ~40% opp with max cueing. Level of Assistance Maximal prompting Cue/Prompt Type Multimodal Cue/Prompt Intensity Maximum Situation During or as therapeutic activity Orientation Activity Component(s) Place;Time;Situation/Etiology/Injury Additional Explanation: Activity Orientation information extensively reviewed. Errorless learning of orientation information completed. Pt required max cues for immediate and delayed recall of orientation facts. Level of Assistance Maximal prompting Cue/Prompt Type Verbal;Visual Cue/Prompt Intensity Maximum Compensatory Strategy Training [specify strategy] external aids Situation During or as therapeutic activity Memory Score Recognizes, Remembers Routines, and Executes Requests Without Prompting No Remembers and Executes Requests With Prompting Patient recognizes and remembers 25% to 49% of the time, and needs prompting more than half the time Functional [place] Measure Memory Maximal prompting - 2 Goals: Encounter Goals Encounter Goals (Active) LTG - Patient will participate in ongoing diagnostic assessments to determine plan of care Start: 09/06/24 Expected End: 09/28/24 STG - Patient will participate in ongoing diagnostic assessments to determine plan of care Start: 09/06/24 Expected End: 09/28/24 LTG - Orientation to self, time, place, and situation Start: 09/15/24 STG - Express orientation information Start: 09/15/24 LTG - Comprehension of single words and simple expressions Start: 09/15/24 STG - Answer yes/no questions Start: 09/15/24 LTG - Patient will improve on swallowing outcome measure Start: 09/15/24 STG - Improve bolus formation Start: 09/15/24 Phoenix Cano 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 [facility] [facility] * Mason Kam MD - 09/20/2024 10:31 AM MANAGER W[facility] [place] [facility]ist Consult Progress Note Subjective Patient didn't eat much breakfast this morning. He otherwise had no complaints other than feeling a bit tired. Objective Vitals: 09/20/24 0235 09/20/24 0753 09/20/24 0808 09/20/24 0844 BP: (!) 140/59 Pulse: 94 85 88 88 Resp: 18 20 14 Temp: 36.4 ?C (97.6 ?F) SpO2: 97% 95% Physical exam Gen: alert, NAD HEENT: mmm Cardio: RRR Resp: CTAB Abd: soft, nt, nd, +bs Neuro: responds appropriately to questions Psych: pleasant and calm Current Active Medications [Held by provider] amLODIPine, 10 mg, Oral, Daily aspirin, 324 mg, Nasogastric, Daily atorvastatin, 80 mg, Oral, Daily bisacodyl, 10 mg, Rectal, Every evening Boost Glucose Control, 1 Container, Oral, TID with meals caffeine, 100 mg, Oral, BID Docusate Sodium, 100 mg, Per G Tube, q12h heparin, 5,000 Units, Subcutaneous, q8h influenza vaccine, 0.5 mL, Intramuscular, During hospitalization insulin glargine, 22 Units, Subcutaneous, Every evening insulin lispro, 8 Units, Subcutaneous, TID with meals ipratropium-albuterol, 3 mL, Nebulization, q6h losartan, 75 mg, Oral, Daily melatonin, 3 mg, Per G Tube, Nightly mirtazapine, 15 mg, Oral, Nightly modafinil, 100 mg, Oral, BID polyethylene glycol (PEG) 3350, 17 g, Per G Tube, q12h sennosides, 1 tablet, Oral, Nightly PRN medications: bisacodyl, dextrose, glucagon, insulin lispro, levETIRAcetam, magnesium hydroxide, midazolam, sodium chloride Assessment and PlanPatient Active Problem List Diagnosis Acute ischemic stroke (HCC) Cerebrovascular accident (CVA) (HCC) Diabetes mellitus (HCC) 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) Delirium Dysphagia Hyperlipidemia Primary hypertension Uncontrolled type 2 diabetes mellitus with hyperglycemia (HCC) Acute stroke due to thrombosis of right middle cerebral artery (HCC) Cognitive communication deficit 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 Hospital course was complicated by pneumonia which was treated with antibiotics. Antibiotics were completed on 08/28. Now patient is transferred here for comprehensive rehab. Amlodipine remains on hold given his orthostasis, will follow bp trend.Overall, he does have progressive hyperglycemia throughout the day so his short acting insulin was increased (we are only giving it if he eats at least 50% of the meals though as appetite overall is poor). Will keep dose of long acting insulin the same today. Acute CVARight MCA CVA on 08/19 status post TNK and endovascular thrombectomy on 08/19 MRI consistent with right MCA infarct DAPT with aspirin and Plavix for 21 days and aspirin lifelong Undetermined etiology Statin comprehensive rehab ongoing DysphagiaDysphagia diet 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 HypertensionHold amlodipine given orthostasis Continue losartan; monitor trend over the next 24-48 hours Type 2 DiabetesAs discussed above "Premeal" is not being given premeal but only if he eats at least 50% of his meals; overall trend is progressive hyperglycemia throughout the day so will work on titrating this; dose has been increased for when he does eat but didn't eat enough breakfast today Hospitalist will continue to follow please reach out with any questions orissues [facility] [facility] * Derrell Davis OT - 09/20/2024 9:00 AM MANAGER [employer]LESS Treatment Session Note Patient Name: Chaitanya Tena Today's Date: 09/20/2024 Preferred Language: Tanzanian Assessment & Plan Assessment: Plan: Treatment Plan/Goals Established with Patient/Caregiver: Yes Treatment Interventions: ADL retraining, Cognitive reorientation, Aquatic therapy, Compensatory technique education, Endurance training, Equipment evaluation/education, Functional transfer training, Fine motor coordination activities, Neuromuscular reeducation, Orthotic/Orthotic management, Patient/family training, Positioning, UE strengthening/ROM, Visual perceptual retraining OT Plan: Skilled OT OT Frequency: 5-7 times per week OT Planned Treatments: Work simplification, Discharge, Activities of Daily Living, Aquatics, Balance training, Caregiver training, Casting, Cognitive training, Coordination, Developmental skills training, Discharge/Discontinue OT treatment, Dry needling, Edema managment, Electric modalities, Energy conservation training, Equipment assessment, Equipment training, Group therapy, Home program, Joint protection, Manual therapy, Mobility training, Neuromuscular reeducation, Orthotic, Pain management, Patient education, Prevocational training, Safety education, Seating/Positioning, Sensory integration, Spasticity Managment, Splinting, Taping, Therapeutic activities, Therapeutic exercises, Thermal modalities, Visual and perceptual training OT Duration: 3-4 weeks Subjective Pain:Pain Assessment Pain Assessment: DVPRS (09/20/2024899) Pain Score: 0 (09/20/2024899) Pain Rating Scale (DVPRS): No pain (09/20/2024899) Vital Signs:Patient Vitals for the past 12 hrs: BP MAP (mmHg) Pulse Resp SpO2 09/20/24 0844 -- -- 88 -- -- 09/20/24 0808 (!) 140/59 86 88 14 -- 09/20/24 0753 -- -- 85 20 95 % 09/20/24 0235 -- -- 94 18 97 % 09/20/24 0228 -- -- 93 18 93 % Objective 09/20/24 0900Time Calculation Start Time 0900 Stop Time 1000 Time Calculation (min) 60 min Pain Assessment Pain Assessment DVPRS Pain Score 0 Pain Rating Scale (DVPRS) 0 Arousal/Consciousness Facilitation Arousal;Attention Sensory Route Tactile: Touch, rub, poke;Visual: Face, light ADL Self Care/Home Management (ADLs) Time Entry 15 Eating Activity Component(s) Liquid to mouth;Food to mouth Diet minced moist; alternate liquid Level of Assistance Partial/Mod assistance Comment req multimodal cues to initate feeding activity Eating Assistance Needed Physical assistance Physical Assistance Level 51%-75% CARE Score - Eating 2 Bed Mobility 1 Level of Assistance 1 Partial/Mod assistance Bed Mobility Comments 1 multimodal cues for proper hand placement Bed Mobility To/From Roll left/right;Supine to sit on EOB Assistive Devices And Adaptive Equipments No device Transfers Transfer Yes Transfer 1 Technique 1 Squat pivot Level of Assistance 1 Partial/Mod assistance Trials/Comments 1 towards the L side d/t pushing Transfer To/From Chair;Bed Assistive Devices And Adaptive Equipments No device Transfers 2 Technique 2 Stand pivot Level of Assistance 2 Supervision/touching assistance Trials/Comments 2 x2, needed mod a from mat to WC d/t fatigue towards the end of the session Transfer To/From Wheelchair;Mat Assistive Devices And Adaptive Equipments No device Therapeutic Procedures Time Entry Neuromuscular Re-Education Time Entry 25 Therapeutic Activity Time Entry 15 Therapeutic Activity Therapeutic Activity 1 Pt particiapted in mat level WC measurements for loaner chair Balance/Neuromuscular Re-Education Balance/Neuromuscular Re-Education Activity 1 participated in sitting balance activity at EOM For 45 mins; req multimodal cues to maintain midline towards the end of session d/t fatigue Position 1 Seated Balance/Neuromuscular Re-Education Activity 2 participated in forward excursion x15 floor level retriveal and identify ecah item Position 2 Seated Patient Education:Education Documentation No documentation found. Education Comments No comments found. Goals:Encounter Goals Encounter Goals (Active) Patient will perform grooming with minimum assist for improved independencewith ADLs (Progressing) Start: 09/06/24 Expected End: 09/27/24 Patient will perform feeding with minimum assist for improved independence with ADLs (Progressing) Start: 09/06/24 Expected End: 09/27/24 Patient will perform upper body dressing with minimum assist to improve independence with dressing. (Progressing) Start: 09/06/24 Expected End: 09/27/24 Patient will perform lower body dressing with moderate assist to improve independence with dressing. (Progressing) Start: 09/06/24 Expected End: 09/27/24 Pt and/or caregiver(s) will have all appropriate DME, recommendations, or completed prescriptions to maximize pt's safety and independence at discharge. (Progressing) Start: 09/06/24 Expected End: 09/27/24 Patient and/or caregivers will verbalize understanding of home program including safety tips, equipment instructions, and home exercises. (Progressing) Start: 09/06/24 Expected End: 09/27/24 Patient will participate in forced use activities using the affected upper extremity with minimum assistance to inhibit abnormal movement patterns. (Progressing) Start: 09/06/24 Expected End: 09/27/24 Patient will incoporate their affected upper extremity with minimal assist/cues during functional task performance. (Progressing) Start: 09/06/24 Expected End: 09/27/24 Patient will participate in seating and mobility trials to improve posture, reduce tone, and prevent secondary complications. (Progressing) Start: 09/06/24 Expected End: 09/27/24 Derrell Davis OT [facility] * Bernadette Norton MD - 09/19/2024 8:08 PM MANAGER [facility] Physical Medicine & Rehabilitation Daily Progress Note Code status: Full Code Current diet: Adult Diet Dysphagia; 0 - Thin Liquids; 5 - Minced & Moist (Dysphagia Ground); 1:1 Feeding Isolation: No active isolations Allergies: Patient has no known allergies. Subjective: No events report last night by nursing. Pain is controlled Intermittent orthostasis Objective: Sleep hours logged Nighttime Sleep Hours: 10 hrs Last Bowel Movement: Last BM Date: 09/19/24 Stool Color: Brown Stool Appearance: Other (Comment) (pasty) Stool Amount: Large Bowel Incontinence: Yes Bowel Elimination Assistance Level: Completely dependent Labs Lab Results Component Value Date WBC 8.30 09/18/2024 Hgb 11.9 (L) 09/18/2024 Hct 37.5 09/18/2024 Plt Count 310 09/18/2024 Cholesterol 149 08/19/2024 Triglycerides 83 08/19/2024 HDL Cholesterol 46.4 08/19/2024 ALT 15 09/18/2024 AST 25 09/18/2024 Sodium Lvl 140 09/18/2024 Potassium Lvl 4.6 (H) 09/18/2024 Chloride Lvl 104 09/18/2024 Creatinine Lvl 1.07 09/18/2024 BUN 17 09/18/2024 CO2 Lvl 28.0 09/18/2024 INR 0.95 08/19/2024 Hgb A1C 9.40 (H) 08/19/2024 Vitals Vitals: 09/19/24 1230 09/19/24 1951 09/19/24 1952 09/19/241952 BP: (!) 125/52 Pulse: (!) 102 93 Resp: Temp: 37.2 ?C (99 ?F) SpO2: 96% 24 Hr Tmax: Temp (24hrs), Av.9 ?C (98.5 ?F), Min:36.6 ?C (97.9 ?F), Max:37.2 ?C (99 ?F) Latest Weight: 82.3 kg (181 lb 7 oz) Intake & Output Intake/Output Summary (Last 24 hours) at 09/19/20242007 Last data filed at 09/19/2024 0800 Gross per 24 hour Intake 237 ml Output -- Net 237 ml I/O last 3 completed shifts: In: 237 (2.9 mL/kg) [P.O.:237] Out: - (0 mL/kg) Weight: 82.3 kg No intake/output data recorded. Medications [Held by provider] amLODIPine, 10 mg, Oral, Daily aspirin, 324 mg, Nasogastric, Daily atorvastatin, 80 mg, Oral, Daily bisacodyl, 10 mg, Rectal, Every evening Boost Glucose Control, 1 Container, Oral, TID with meals caffeine, 100 mg, Oral, BID Docusate Sodium, 100 mg, Per G Tube, q12h heparin, 5,000 Units, Subcutaneous, q8h influenza vaccine, 0.5 mL, Intramuscular, During hospitalization insulin glargine, 22 Units, Subcutaneous, Every evening insulin lispro, 6 Units, Subcutaneous, TID with meals ipratropium-albuterol, 3 mL, Nebulization, q6h losartan, 75 mg, Oral, Daily melatonin, 3 mg, Per G Tube, Nightly mirtazapine, 15 mg, Oral, Nightly modafinil, 100 mg, Oral, BID polyethylene glycol (PEG) 3350, 17 g, Per G Tube, q12h sennosides, 1 tablet, Oral, Nightly PRN medications: bisacodyl, dextrose, glucagon, insulin lispro, levETIRAcetam, magnesium hydroxide, midazolam, sodium chloride Physical Exam:General: in no distress HEENT: moist mucous membranes; left ptosis CV: no peripheral cyanosis Pulm: normal respiratory effort GI: non-distended abdomen Derm: no rashes or ulcers in areas examed Psych: calm, cooperative DIAGNOSES & PROBLEMSPrincipal Problem: 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 male with hx of prior ischemic stroke w/ no residual deficits, HTN, DM2, lung cancer (last treatment 2021) who presented to [facility] on 08/19 w/ left sided weakness and neglect, found to have R MCA stroke s/p TNK and endovascular thrombectomy on 08/19 with subsequent improvement in strength and mentation. Mild hemorrhagic conversion. Acute care course c/b CAP s/p completion of abx on 08/28/24 Right middle cerebral artery strokeStable neurologic status; admission imaging did show some minimal hemorrhagic conversion Completed 21 days of dual antiplatelet therapy and currently on aspirin monotherapy in addition to atorvastatin for secondary stroke prevention Left hemiparesisOngoing work on neuromuscular education Cognitive deficitsSevere; arousal is the most problematic at this time Continued on caffeine and modafinil; continued trial of twice daily modafinil Gait abnormalityOngoing work on independence in mobility with physical and Occupational Therapy DysarthriaOngoing work on articulation strategies speech-language pathology HypertensionBlood pressure is controlled on current dosages of amlodipine and losartan HyperglycemiaContinued on long-acting glargine as well as Premeal insulin Blood glucoses are still variable; ongoing adjustments from internal medicine Sleep dysfunctionContinue scheduled melatonin and mirtazapine Neurogenic bowelMonitor for constipation on docusate, senna, and MiraLAX Neurogenic bladderVoiding spontaneously; work on continence through time voids MalnutritionDietitian following closely; continued on diabetic supplements Trialing an increase in mirtazapine to improve dietary intake DVT prophylaxisContinue on subcutaneous heparin CODE STATUS: Full Disposition:To home with assistance from family - tentative on 09/27/24 Follow-up:[facility] neurolog[facility] within 2 weeks of discharge Primary care provider within 2 weeks of discharge We conducted an interdisciplinary team conference today- see separate note documenting progress of therapies and goals for remaining inpatient rehabilitation. I spent 51 minutes total in patient care ([id number] and on the rehab floor/unit) including discussion with nursing, therapy, social work and case management during interdisciplinary team conference (discussing patient's active medical issues, progress in therapies, and discharge planning) and discussion with the patient/family (regarding current medical status and discharge planning). AZALIA Sanz#[id number] GER WIRELESS * Vannesa Stuart LCSW - 09/19/2024 4:12 PM MANAGER WIRELESS SW spoke with patient's daughter Orlin to provide weekly team rounds update. Patient's dc date remains 09/27/24. Patient's functional level: partial assist with stand/pivot, substantial assist with mobility, requires a lot of max verbal cueing. Patient is overall max assist with ADLs. Anticipated dc needs: due to patient's functional, and cognitive deficits, he will require 24hr care and supervision at discharge. DC plan: patient will dc home with caregiver support from his Niece who will receive family training. [place] will continue to follow and assist with dc planning. Vannesa Stuart LMSW GER WIRELESS * [place] Cano CCC-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 - 09/19/2024 3:07 PM MANAGER WIRELESS Speech-Language Pathology Treatment Session Note Patient Name: Chaitanya Tena Today's Date: 09/19/2024 Preferred Language: Tanzanian 09/19/24 1507 Time Calculation Start Time 1507 Stop Time 1517 Time Calculation (min) 10 min General Amount of Missed Time (min) 50 Minutes Missed Time Reason Patient fatigue Session Information Location Bedside Environmental Stimulation Quiet Patient Effort and Participation None Purpose/Target Impairment Pain Assessment Pain Assessment 0-10 Pain Score 0 Arousal and Consciousness Facilitation Arousal Sensory Route Tactile: Touch, rub, poke Orientation Activity Component(s) Place;Time;Situation/Etiology/Injury Additional Explanation: Activity Pt oriented to TANYA and dx. 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 reviewed additional orientation concepts. Pt unable to demonstrate carryover of orientation information despite max repetitions. Hypoarousal served as a barrier. Memory Score Recognizes, Remembers Routines, and Executes Requests Without Prompting No Remembers and Executes Requests With Prompting Patient recognizes and remembers 25% to 49% of the time, and needs prompting more than half the time Functional [place] Measure Memory Maximal prompting - 2 Goals: Encounter Goals Encounter Goals (Active) LTG - Patient will participate in ongoing diagnostic assessments to determine plan of care Start: 09/06/24 Expected End: 09/28/24 STG - Patient will participate in ongoing diagnostic assessments to determine plan of care Start: 09/06/24 Expected End: 09/28/24 LTG - Orientation to self, time, place, and situation Start: 09/15/24 STG - Express orientation information Start: 09/15/24 LTG - Comprehension of single words and simple expressions Start: 09/15/24 STG - Answer yes/no questions Start: 09/15/24 LTG - Patient will improve on swallowing outcome measure Start: 09/15/24 STG - Improve bolus formation Start: 09/15/24 JONATHAN WattAUTOCAD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 GER WIRELESS * Gus Lua, OT - 09/19/2024 2:00 PM MANAGER WIRELESS Treatment Session Note Patient Name: Chaitanya Tena Today's Date: 09/19/2024 Preferred Language: Tanzanian Assessment & Plan Assessment: OT Assessment: (P) Pt with poor participation and needing max cues to engaged in bed mobility task. Plan: Treatment Plan/Goals Established with Patient/Caregiver: Yes Treatment Interventions: ADL retraining, Cognitive reorientation, Aquatic therapy, Compensatory technique education, Endurance training, Equipment evaluation/education, Functional transfer training, Fine motor coordination activities, Neuromuscular reeducation, Orthotic/Orthotic management, Patient/family training, Positioning, UE strengthening/ROM, Visual perceptual retraining OT Plan: Skilled OT OT Frequency: 5-7 times per week OT Planned Treatments: Work simplification, Discharge, Activities of Daily Living, Aquatics, Balance training, Caregiver training, Casting, Cognitive training, Coordination, Developmental skills training, Discharge/Discontinue OT treatment, Dry needling, Edema managment, Electric modalities, Energy conservation training, Equipment assessment, Equipment training, Group therapy, Home program, Joint protection, Manual therapy, Mobility training, Neuromuscular reeducation, Orthotic, Pain management, Patient education, Prevocational training, Safety education, Seating/Positioning, Sensory integration, Spasticity Managment, Splinting, Taping, Therapeutic activities, Therapeutic exercises, Thermal modalities, Visual and perceptual training OT Duration: 3-4 weeks Subjective Pain: Pain Assessment Pain Assessment: DVPRS (09/19/2024 1400) Pain Score: 0 (09/19/2024 1400) Pain Rating Scale (DVPRS): No pain (09/19/2024 1400) Response to Interventions: No pain with bed mobility and positioning in bed (09/19/2024 1400) Vital Signs: Patient Vitals for the past 12 hrs: BP MAP (mmHg) Pulse Resp SpO2 09/19/24 1212 -- -- (!) 102 18 97 % 09/19/24 1153 127/63 -- 96 -- -- 09/19/24 1117 (!) 85/63 -- (!) 103 -- -- 09/19/24 1109 (!) 118/57 77 97 -- -- 09/19/24 0848 (!) 113/59 -- (!) 103 -- -- 09/19/24 0845 (!) 84/61 -- (!) 113 -- -- 09/19/24 0836 (!) 118/57 -- (!) 102 -- -- 09/19/24 0800 -- -- 87 -- -- 09/19/24 0709 (!) 124/56 79 87 18 96 % 09/19/24 1400 General Amount of Missed Time (min) 15 Minutes Missed Treatment Reason Patient unwilling to participate Family/Caregiver Present No Time Calculation Start Time 1400 Stop Time 1415 Time Calculation (min) 15 min Pain Assessment Pain Assessment DVPRS Pain Score 0 Pain Rating Scale (DVPRS) 0 Response to Interventions No pain with bed mobility and positioning in bed Therapeutic Procedures Time Entry Therapeutic Activity Time Entry 15 Therapeutic Activity Therapeutic Activity 1 Pt in bed refugio rrival. Max assist to roll in bed and attempted to perfom supine to sit but pt refusing and reported leave me alone. OT made multiple attempts but pt unwilling. POT repositioned pt by cues pt to push up int he bed with max assist. pt repositioned in bed and left supine in bed. OT Assessment OT Assessment Pt with poor participation and needing max cues to engaged in bed mobility task. Patient Education: Education Documentation No documentation found. Education Comments No comments found. Goals: Encounter Goals Encounter Goals (Active) Patient will perform grooming with minimum assist for improved independence with ADLs (Progressing) Start: 09/06/24 Expected End: 09/27/24 Patient will perform feeding with minimum assist for improved independence with ADLs (Progressing) Start: 09/06/24 Expected End: 09/27/24 Patient will perform upper body dressing with minimum assist to improve independence with dressing. (Progressing) Start: 09/06/24 Expected End: 09/27/24 Patient will perform lower body dressing with moderate assist to improve independence with dressing. (Progressing) Start: 09/06/24 Expected End: 09/27/24 Pt and/or caregiver(s) will have all appropriate DME, recommendations, or completed prescriptions to maximize pt's safety and independence at discharge. (Progressing) Start: 09/06/24 Expected End: 09/27/24 Patient and/or caregivers will verbalize understanding of home program including safety tips, equipment instructions, and home exercises. (Progressing) Start: 09/06/24 Expected End: 09/27/24 Patient will participate in forced use activities using the affected upper extremity with minimum assistance to inhibit abnormal movement patterns. (Progressing) Start: 09/06/24 Expected End: 09/27/24 Patient will incoporate their affected upper extremity with minimal assist/cues during functional task performance. (Progressing) Start: 09/06/24 Expected End: 09/27/24 Patient will participate in seating and mobility trials to improve posture, reduce tone, and prevent secondary complications. (Progressing) Start: 09/06/24 Expected End: 09/27/24 Gus Lua OT GER WIRELESS * Mason Kam MD - 09/19/2024 11:30 AM MANAGER WIRELESS [facility] [place] Hospitalist Consult Progress Note Subjective Patient has no concerns this morning. He has been having orthostasis with therapy. Objective Vitals: 09/19/24 0845 09/19/24 0848 09/19/24 1109 09/19/24 1117 BP: (!) 84/61 (!) 113/59 (!) 118/57 (!) 85/63 Pulse: (!) 113 (!) 103 97 (!) 103 Resp: Temp: SpO2: Physical exam Gen: alert, NAD HEENT: neck supple Cardio: RRR Resp: CTAB Abd: soft, nt, nd, +bs Neuro: responds appropriately to questions Psych: pleasant and calm Current Active Medications [Held by provider] amLODIPine, 10 mg, Oral, Daily aspirin, 324 mg, Nasogastric, Daily atorvastatin, 80 mg, Oral, Daily bisacodyl, 10 mg, Rectal, Every evening Boost Glucose Control, 1 Container, Oral, TID with meals caffeine, 100 mg, Oral, BID Docusate Sodium, 100 mg, Per G Tube, q12h heparin, 5,000 Units, Subcutaneous, q8h influenza vaccine, 0.5 mL, Intramuscular, During hospitalization insulin glargine, 25 Units, Subcutaneous, Every evening insulin lispro, 6 Units, Subcutaneous, TID with meals ipratropium-albuterol, 3 mL, Nebulization, q6h losartan, 75 mg, Oral, Daily melatonin, 3 mg, Per G Tube, Nightly mirtazapine, 15 mg, Oral, Nightly modafinil, 100 mg, Oral, BID polyethylene glycol (PEG) 3350, 17 g, Per G Tube, q12h sennosides, 1 tablet, Oral, Nightly PRN medications: bisacodyl, dextrose, glucagon, insulin lispro, levETIRAcetam, magnesium hydroxide, midazolam, sodium chloride Assessment and PlanPatient Active Problem List Diagnosis Acute ischemic stroke (HCC) Cerebrovascular accident (CVA) (HCC) Diabetes mellitus (HCC) 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) Delirium Dysphagia Hyperlipidemia Primary hypertension Uncontrolled type 2 diabetes mellitus with hyperglycemia (HCC) Acute stroke due to thrombosis of right middle cerebral artery (HCC) Cognitive communication deficit 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 Hospital course was complicated by pneumonia which was treated with antibiotics. Antibiotics were completed on 08/28. Now patient is transferred here for comprehensive rehab. He is having orthostasis. I will hold amlodipine and monitor the bp trend.Trial of increased po water intake but that is overall limited and we may need to consider ivf. Will decrease glargine a bit further as well. PO intake has been variable and want to avoid hypoglycemia. Acute CVARight MCA CVA on 08/19 status post TNK and endovascular thrombectomy on 08/19 MRI consistent with right MCA infarct DAPT with aspirin and Plavix for 21 days and aspirin lifelong thereafter Undetermined etiology Statin Continue comprehensive rehab Hypoxic respiratory failureResolved Pna has been treated DysphagiaDysphagia diet 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 HypertensionHold amlodipine given orthostasis Will continue losartan for now Type 2 DiabetesDecrease lantus a bit further today to 22 units Monitor trend Hospitalist will continue to follow please reach out with any questions orissues GER WIRELESS * Thelma Cuevas, PT - 09/19/2024 11:15 AM MANAGER WIRELESS Treatment Session Note Patient Name: Chaitanya Tena Today's Date: 09/19/2024 Preferred Language: Tanzanian Assessment & Plan Assessment: PT Assessment: Pt limited this treatment session due to orthostasis and bowel incontinence. Despite pt being physically appropriate for stand pivot to toilet, continues to be unable to successfully void on toilet due to incontinence. Plan: Treatment Plan/Goals Established with Patient/Caregiver: Yes PT Frequency: 60-90 minutes per day PT Planned Treatment: Age appropriate play, Aquatic therapy, Assistive technology, Balance training, Basic activities of daily living, Bed mobility training, Body weight support treadmill training, Caregiver training, Community/Work reintegration, Compression wrapping, Desensitization program, Developmental skills training, Edema management, Electric modalities, Equipment training, Gait training, Group therapy, Home assessment/modification, Manual therapy, Mechanical modalities, Neuromuscular reeducation, Orthotic training, Pain management, Patient education, Positioning, Posture/Body mechanics training, Robotic assisted walking therapy, Spasticity Management, Seating, Stair training, Taping, Therapeutic activities, Therapeutic exercises, Thermal/Light modalities, Transfer training Duration: 3-4 weeks Subjective Pt received sitting EOM in first floor gym, BP noted to be low. Handoff from PT. Pt left supine in bed with PCT present, BP improved to 127/63 with pt supine. Pain: Pain Assessment Pain Assessment: DVPRS (09/19/2024 111) Pain Score: 0 (09/19/20241114) Pain Rating Scale (DVPRS): No pain (09/19/2024 111) Vital Signs: Patient Vitals for the past 12 hrs: BP MAP (mmHg) Pulse Resp SpO2 09/19/24 1153 127/63 -- 96 -- -- 09/19/24 1117 (!) 85/63 -- (!) 103 -- -- 09/19/24 1109 (!) 118/57 77 97 -- -- 09/19/24 0848 (!) 113/59 -- (!) 103 -- -- 09/19/24 0845 (!) 84/61 -- (!) 113 -- -- 09/19/24 0836 (!) 118/57 -- (!) 102 -- -- 09/19/24 0800 -- -- 87 -- -- 09/19/24 0709 (!) 124/56 79 87 18 96 % 09/19/24 0147 -- -- 85 18 100 % 09/19/24 0139 -- -- 95 18 98 % No data found. Objective 09/19/24 1115 General Amount of Missed Time (min) 10 Minutes Missed Time Reason Bowel/bladder accident Family/Caregiver Present No Time Calculation Start Time 1115 Stop Time 1200 Time Calculation (min) 45 min Pain Assessment Pain Assessment DVPRS Pain Score 0 Pain Rating Scale (DVPRS) 0 Therapeutic Activity Therapeutic Activity Time Entry 35 Therapeutic Activity 1 BP management due to orthostasis (BP 80s/60s sitting in MWC). PT dons mahogany monroy and pt with abdominal binder golden sanders. Therapeutic Activity 2 Transfers to L, bridging and rolling for pericare Bed Mobility Bed Mobility Yes Bed Mobility 1 Level of Assistance 1 Supervision/touching assistance Bed Mobility Comments 1 VC Bed Mobility To/From Roll left/right Assistive Devices And Adaptive Equipments No device Bed Mobility 2 Level of Assistance 2 Supervision/touching assistance Bed Mobility Comments 2 min VC Bed Mobility To/From Sitting EOB to supine;Supine to sit on EOB Assistive Devices And Adaptive Equipments No device Bed Mobility 3 Level of Assistance 3 Supervision/touching assistance Bed Mobility Comments 3 x 3 times with min VC Bed Mobility To/From Other (Bridging) Assistive Devices And Adaptive Equipments No device Roll Left and Right Assistance Needed Verbal cues;Supervision Physical Assistance Level No physical assistance CARE Score - Roll Left and Right 4 Lying to Sitting on Side of Bed Assistance Needed Supervision;Verbal cues Physical Assistance Level No physical assistance CARE Score - Lying to Sitting on Side of Bed 4 Sit to Lying Assistance Needed Supervision;Verbal cues Physical Assistance Level No physical assistance CARE Score - Sit to Lying 4 Transfers Transfer Yes Transfer 1 Technique 1 Stand pivot Level of Assistance 1 Partial/Mod assistance Trials/Comments 1 towards L side Transfer To/From Mat;Wheelchair Assistive Devices And Adaptive Equipments No device Transfers 2 Level of Assistance 2 Supervision/touching assistance Trials/Comments 2 x 3 times from [facility] Transfer To/From Epu-ed-Uxyfz/Fkiad-zu-Out Assistive Devices And Adaptive Equipments No device Transfers 3 Technique 3 Stand pivot Level of Assistance 3 Partial/Mod assistance Trials/Comments 3 towards L Transfer To/From Wheelchair;Bed Assistive Devices And Adaptive Equipments No device Chair/Qzu-iq-Wxzfa Transfer Assistance Needed Physical assistance Physical Assistance Level 26%-50% Comment stand pivot CARE Score - Chair/Mxz-pc-Pzhqw Transfer 3 Sit to Stand Assistance Needed Physical assistance Physical Assistance Level 25% or less Comment no device CARE Score - Sit to Stand 3 Wheel 50 Feet with Two Turns Assistance Needed Physical assistance Physical Assistance Level Total assistance CARE Score - Wheel 50 Feet with Two Turns 1 Type of Wheelchair/Scooter Manual Wheel 150 Feet Assistance Needed Physical assistance Physical Assistance Level Total assistance CARE Score - Wheel 150 Feet 1 Type of Wheelchair/Scooter Manual PT Assessment PT Assessment Pt limited this treatment session due to orthostasis and bowel incontinence. Despite pt being physically appropriate for stand pivot to toilet, continues to be unable to successfully void on toilet due to incontinence. Outcome Measures: Patient Education: Education Documentation No documentation found. Education Comments No comments found. Goals: Encounter Goals Encounter Goals (Active) Pt will perform all bed mobility independently (Progressing) Start: 09/06/24 Expected End: 09/27/24 Goal Note Performing with verbal cues and SVN LTG: Pt will ambulate > 150 ft with SPV and LRAD (Progressing) Start: 09/06/24 Expected End: 09/27/24 Goal Note Continuing to trial ambulation with and without RW LTG: Pt will improve BBS to 36/56 to indicate decreased risk for falls (Progressing) Start: 09/06/24 Expected End: 09/27/24 Goal Note 106: scores 9/36 STG: Pt will improve BBS to >13/56 to indicate decreased risk for falls (IE5/56, MDC 6.9 pts) (Progressing) Start: 09/06/24 Expected End: 09/20/24 Goal Note 09/18: scores 9/36 Within 2 weeks of starting therapy, the patient and/or family/caregiver will demonstrate independence and be compliant in a written HEP in order to maximize gains made during therapy. (Progressing) Start: 09/06/24 Expected End: 09/27/24 Goal Note Continuing to assess for appropriate HEP LTG: Pt will perform stand step transfers with set-up assist and LRAD (Progressing) Start: 09/06/24 Expected End: 09/27/24 Goal Note Performing with partial A STG: Pt will perform stand step transfers with touch A and LRAD (Progressing) Start: 09/06/24 Expected End: 09/20/24 Goal Note Performing with partial A Encounter Goals (Resolved) STG: Assess gait as appropriate (Completed) Start: 09/06/24 Expected End: 09/13/24 Resolved: 09/12/24 Goal Note Gait with RW and 2 POH Thelma Cuevas, PT GER [employer]LESS * Aliya Salguero, PT - 09/19/2024 11:00 AM MANAGER WIRELESS Physical Therapy Treatment Session Note Patient Name: Chaitanya Tena Today's Date: 09/19/2024 Preferred Language: Tanzanian Assessment & Plan Assessment: PT Assessment: Pt tolerated rounds coverage session. Focus on static standing balance (pt unable to maintain EC for >3sec). Handed off to primary PT at EOM. Plan: Treatment Plan/Goals Established with Patient/Caregiver: Yes PT Frequency: 60-90 minutes per day PT Planned Treatment: Age appropriate play, Aquatic therapy, Assistive technology, Balance training, Basic activities of daily living, Bed mobility training, Body weight support treadmill training, Caregiver training, Community/Work reintegration, Compression wrapping, Desensitization program, Developmental skills training, Edema management, Electric modalities, Equipment training, Gait training, Group therapy, Home assessment/modification, Manual therapy, Mechanical modalities, Neuromuscular reeducation, Orthotic training, Pain management, Patient education, Positioning, Posture/Body mechanics training, Robotic assisted walking therapy, Spasticity Management, Seating, Stair training, Taping, Therapeutic activities, Therapeutic exercises, Thermal/Light modalities, Transfer training Duration: 3-4 weeks Subjective Pain: Pain Assessment Pain Assessment: DVPRS (09/19/2024 1100) Pain Rating Scale (DVPRS): No pain (09/19/2024 1100) Vital Signs: Patient Vitals for the past 12 hrs: BP MAP (mmHg) Pulse Resp SpO2 09/19/24 1212 -- -- (!) 102 18 97 % 09/19/24 1153 127/63 -- 96 -- -- 09/19/24 1117 (!) 85/63 -- (!) 103 -- -- 09/19/24 1109 (!) 118/57 77 97 -- -- 09/19/24 0848 (!) 113/59 -- (!) 103 -- -- 09/19/24 0845 (!) 84/61 -- (!) 113 -- -- 09/19/24 0836 (!) 118/57 -- (!) 102 -- -- 09/19/24 0800 -- -- 87 -- -- 09/19/24 0709 (!) 124/56 79 87 18 96 % 09/19/24 0147 -- -- 85 18 100 % 09/19/24 0139 -- -- 95 18 98 % Objective 09/19/24 1100 Time Calculation Start Time 1100 Stop Time 1115 Time Calculation (min) 15 min Pain Assessment Pain Assessment DVPRS Pain Rating Scale (DVPRS) 0 Therapeutic Activity Therapeutic Activity Time Entry 15 Transfers Transfer Yes Transfer 1 Technique 1 Stand step Level of Assistance 1 Partial/Mod assistance Trials/Comments 1 toward R Transfer To/From Other (specify) (w/c > mat) Assistive Devices And Adaptive Equipments No device Transfers 2 Level of Assistance 2 Supervision/touching assistance Trials/Comments 2 x5 from EOM Transfer To/From [id number] Assistive Devices And Adaptive Equipments No device Sit to Stand Assistance Needed Supervision;Incidental touching Physical Assistance Level No physical assistance CARE Score - Sit to Stand 4 Balance/Neuromuscular Re-Education Activity Component(s) 1 Standing;Static Balance/Neuromuscular Re-Education Activity 1 static standing with EO, EC x5 PT Assessment PT Assessment Pt tolerated rounds coverage session. Focus on static standing balance (pt unable to maintain EC for >3sec). Handed off to primary PT at EOM. Patient Education: Education Documentation No documentation found. Education Comments No comments found. Goals: Encounter Goals Encounter Goals (Active) Pt will perform all bed mobility independently (Progressing) Start: 09/06/24 Expected End: 09/27/24 Goal Note Performing with verbal cues and SVN LTG: Pt will ambulate > 150 ft with SPV and LRAD (Progressing) Start: 09/06/24 Expected End: 09/27/24 Goal Note Continuing to trial ambulation with and without RW LTG: Pt will improve BBS to 36/56 to indicate decreased risk for falls (Progressing) Start: 09/06/24 Expected End: 09/27/24 Goal Note 09/18: scores 9/36 STG: Pt will improve BBS to >13/56 to indicate decreased risk for falls (IE5/56, MDC 6.9 pts) (Progressing) Start: 09/06/24 Expected End: 09/20/24 Goal Note 09/18: scores 9/36 Within 2 weeks of starting therapy, the patient and/or family/caregiver will demonstrate independence and be compliant in a written HEP in order to maximize gains made during therapy. (Progressing) Start: 09/06/24 Expected End: 09/27/24 Goal Note Continuing to assess for appropriate HEP LTG: Pt will perform stand step transfers with set-up assist and LRAD (Progressing) Start: 09/06/24 Expected End: 09/27/24 Goal Note Performing with partial A STG: Pt will perform stand step transfers with touch A and LRAD (Progressing) Start: 09/06/24 Expected End: 09/20/24 Goal Note Performing with partial A Encounter Goals (Resolved) STG: Assess gait as appropriate (Completed) Start: 09/06/24 Expected End: 09/13/24 Resolved: 09/12/24 Goal Note Gait with RW and 2 POH A. Aliya Salguero, PT, DPTBoard Certified Clinical Specialist in Neurologic Physical Therapy [facility] * Debbi Muniz PT - 09/19/2024 8:30 AM MANAGER [facility] Treatment Session Note Patient Name: Chaitanya Tena Today's Date: 09/19/2024 Preferred Language: Tanzanian Assessment & Plan Assessment: PT Assessment: Pt. retropulsive requiring modA for gait with PT in front and pt. holding onto PT; no w/c follow. Patient orthostatic x1 after 2nd bout of gait, vitals assessed and stable after seated rest. Verbal cueing and therapist on L side for pt. to attend to Left which improved as session progressed. Plan: Treatment Plan/Goals Established with Patient/Caregiver: Yes PT Frequency: 60-90 minutes per day PT Planned Treatment: Age appropriate play, Aquatic therapy, Assistive technology, Balance training, Basic activities of daily living, Bed mobility training, Body weight support treadmill training, Caregiver training, Community/Work reintegration, Compression wrapping, Desensitization program, Developmental skills training, Edema management, Electric modalities, Equipment training, Gait training, Group therapy, Home assessment/modification, Manual therapy, Mechanical modalities, Neuromuscular reeducation, Orthotic training, Pain management, Patient education, Positioning, Posture/Body mechanics training, Robotic assisted walking therapy, Spasticity Management, Seating, Stair training, Taping, Therapeutic activities, Therapeutic exercises, Thermal/Light modalities, Transfer training Duration: 3-4 weeks Subjective Pt. Received sitting in wc at nurses station and agreeable to therapy. Patient tolerated well and returned to nurse's station at end of session. Pain: Pain Assessment Pain Assessment: DVPRS (09/19/2024829) Pain Score: 0 (09/19/2024829) Pain Rating Scale (DVPRS): No pain (09/19/2024829) Vital Signs: Patient Vitals for the past 12 hrs: BP MAP (mmHg) Pulse Resp SpO2 09/19/24 1212 -- -- (!) 102 18 97 % 09/19/24 1153 127/63 -- 96 -- -- 09/19/24 1117 (!) 85/63 -- (!) 103 -- -- 09/19/24 1109 (!) 118/57 77 97 -- -- 09/19/24 0848 (!) 113/59 -- (!) 103 -- -- 09/19/24 0845 (!) 84/61 -- (!) 113 -- -- 09/19/24 0836 (!) 118/57 -- (!) 102 -- -- 09/19/24 0800 -- -- 87 -- -- 09/19/24 0709 (!) 124/56 79 87 18 96 % 09/19/24 0147 -- -- 85 18 100 % 09/19/24 0139 -- -- 95 18 98 % No data found. Objective 09/19/24 0830 PT Last Visit PT Received On 09/19/24 Response to Previous Treatment Patient with no complaints from previous session. Time Calculation Start Time 0830 Stop Time 0900 Time Calculation (min) 30 min Activity Tolerance Activity Tolerance Comments x1 orthostatic hypotension following ambulation; pt. verbalized need to sit Pain Assessment Pain Assessment DVPRS Pain Score 0 Pain Rating Scale (DVPRS) 0 Therapeutic Activity Therapeutic Activity Time Entry 10 Transfer 1 Technique 1 (1x 5 reps; multiple via walking) Level of Assistance 1 Partial/Mod assistance Trials/Comments 1 Mod A STS due to retropulsive; No device, PT in front Transfer To/From [id number] Assistive Devices And Adaptive Equipments No device Sit to Stand Assistance Needed Physical assistance Physical Assistance Level 26%-50% Comment no device CARE Score - Sit to Stand 3 Gait Training Gait Training Time Entry 20 Gait Training Activity 1 Distance (enter in feet) 2x 20' Assistive Devices And Adaptive Equipments No device Level of Assistance 1 Partial/Mod assistance Gait Training Activity 1 Comment mod A, PT in front of pt. 2/2 retropulsive Surface And Method Indoor;Over ground General Gait Deviations Shuffling;Wide base of support (decreased step length) Walk 10 Feet Assistance Needed Physical assistance Physical Assistance Level 26%-50% CARE Score - Walk 10 Feet 3 PT Assessment PT Assessment Pt. retropulsive requiring modA for gait with PT in front and pt. holding onto PT; no w/c follow. Patient orthostatic x1 after 2nd bout of gait, vitals assessed and stable after seated rest. Verbal cueing and therapist on L side for pt. to attend to Left which improved as session progressed. Outcome Measures: Patient Education: Education Documentation No documentation found. Education Comments No comments found. Goals: Encounter Goals Encounter Goals (Active) Pt will perform all bed mobility independently (Progressing) Start: 09/06/24 Expected End: 09/27/24 Goal Note Performing with verbal cues and SVN LTG: Pt will ambulate > 150 ft with SPV and LRAD (Progressing) Start: 09/06/24 Expected End: 09/27/24 Goal Note Continuing to trial ambulation with and without RW LTG: Pt will improve BBS to 36/56 to indicate decreased risk for falls (Progressing) Start: 09/06/24 Expected End: 09/27/24 Goal Note 09/18: scores 9/36 STG: Pt will improve BBS to >13/56 to indicate decreased risk for falls (IE5/56, MDC 6.9 pts) (Progressing) Start: 09/06/24 Expected End: 09/20/24 Goal Note 09/18: scores 9/36 Within 2 weeks of starting therapy, the patient and/or family/caregiver will demonstrate independence and be compliant in a written HEP in order to maximize gains made during therapy. (Progressing) Start: 09/06/24 Expected End: 09/27/24 Goal Note Continuing to assess for appropriate HEP LTG: Pt will perform stand step transfers with set-up assist and LRAD (Progressing) Start: 09/06/24 Expected End: 09/27/24 Goal Note Performing with partial A STG: Pt will perform stand step transfers with touch A and LRAD (Progressing) Start: 09/06/24 Expected End: 09/20/24 Goal Note Performing with partial A Encounter Goals (Resolved) STG: Assess gait as appropriate (Completed) Start: 09/06/24 Expected End: 09/13/24 Resolved: 09/12/24 Goal Note Gait with RW and 2 POH Debbi Muniz PT [facility] * Bernadette Norton MD - 09/18/2024 8:36 PM MANAGER [facility] Physical Medicine & Rehabilitation Daily Progress Note Code status: Full Code Current diet: Adult Diet Dysphagia; 0 - Thin Liquids; 5 - Minced & Moist (Dysphagia Ground); 1:1 Feeding Isolation: No active isolations Allergies: Patient has no known allergies. Subjective: No events report last night by nursing. Pain is controlled Objective: Sleep hours logged Nighttime Sleep Hours: 8 hrs Last Bowel Movement: Last BM Date: 09/18/24 Stool Color: Brown Stool Appearance: Formed Stool Amount: Small Bowel Incontinence: Yes Bowel Elimination Assistance Level: Completely dependent Labs Lab Results Component Value Date WBC 8.30 09/18/2024 Hgb 11.9 (L) 09/18/2024 Hct 37.5 09/18/2024 Plt Count 310 09/18/2024 Cholesterol 149 08/19/2024 Triglycerides 83 08/19/2024 HDL Cholesterol 46.4 08/19/2024 ALT 15 09/18/2024 AST 25 09/18/2024 Sodium Lvl 140 09/18/2024 Potassium Lvl 4.6 (H) 09/18/2024 Chloride Lvl 104 09/18/2024 Creatinine Lvl 1.07 09/18/2024 BUN 17 09/18/2024 CO2 Lvl 28.0 09/18/2024 INR 0.95 08/19/2024 Hgb A1C 9.40 (H) 08/19/2024 Vitals Vitals: 09/18/24 1200 09/18/24 1202 09/18/24 1709 09/18/242031 BP: (!) 139/58 Pulse: 100 90 (!) 103 96 Resp: 16 18 Temp: SpO2: 97% 96% 24 Hr Tmax: Temp (24hrs), Av.8 ?C (98.3 ?F), Min:36.8 ?C (98.3 ?F), Max:36.8 ?C (98.3 ?F) Latest Weight: 82.3 kg (181 lb 7 oz) Intake & Output Intake/Output Summary (Last 24 hours) at 09/18/20242035 Last data filed at 09/18/2024 0230 Gross per 24 hour Intake -- Output 1 ml Net -1 ml I/O last 3 completed shifts: In: 118 (1.4 mL/kg) [P.O.:118] Out: 1 (0 mL/kg) [Urine:1 (0 mL/kg/hr)] Weight: 82.3 kg No intake/output data recorded. Medications amLODIPine, 10 mg, Oral, Daily aspirin, 324 mg, Nasogastric, Daily atorvastatin, 80 mg, Oral, Daily bisacodyl, 10 mg, Rectal, Every evening Boost Glucose Control, 1 Container, Oral, TID with meals caffeine, 100 mg, Oral, BID Docusate Sodium, 100 mg, Per G Tube, q12h heparin, 5,000 Units, Subcutaneous, q8h influenza vaccine, 0.5 mL, Intramuscular, During hospitalization insulin glargine, 25 Units, Subcutaneous, Every evening insulin lispro, 6 Units, Subcutaneous, TID with meals ipratropium-albuterol, 3 mL, Nebulization, q6h losartan, 75 mg, Oral, Daily melatonin, 3 mg, Per G Tube, Nightly mirtazapine, 15 mg, Oral, Nightly modafinil, 100 mg, Oral, Daily polyethylene glycol (PEG) 3350, 17 g, Per G Tube, q12h sennosides, 1 tablet, Oral, Nightly PRN medications: bisacodyl, dextrose, glucagon, insulin lispro, levETIRAcetam, magnesium hydroxide, midazolam, sodium chloride Physical Exam:General: in no distress HEENT: moist mucous membranes; left ptosis CV: no peripheral cyanosis Pulm: normal respiratory effort GI: non-distended abdomen Derm: no rashes or ulcers in areas examed Psych: calm, cooperative DIAGNOSES & PROBLEMSPrincipal Problem: 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 male with hx of prior ischemic stroke w/ no residual deficits, HTN, DM2, lung cancer (last treatment 2021) who presented to [facility] on 08/19 w/ left sided weakness and neglect, found to have R MCA stroke s/p TNK and endovascular thrombectomy on 08/19 with subsequent improvement in strength and mentation. Mild hemorrhagic conversion. Acute care course c/b CAP s/p completion of abx on 08/28/24 Right middle cerebral artery strokeStable neurologic status; admission imaging did show some minimal hemorrhagic conversion Completed 21 days of dual antiplatelet therapy and currently on aspirin monotherapy in addition to atorvastatin for secondary stroke prevention Left hemiparesisOngoing work on neuromuscular education Cognitive deficitsSevere; arousal is the most problematic at this time Continued on caffeine and modafinil; trialing the addition of noontime modafinil starting on 09/19/2024 Gait abnormalityOngoing work on independence in mobility with physical and Occupational Therapy DysarthriaOngoing work on articulation strategies speech-language pathology HypertensionBlood pressure is controlled on current dosages of amlodipine and losartan HyperglycemiaContinued on long-acting glargine as well as Premeal insulin Blood glucoses are still variable; ongoing adjustments from internal medicine Sleep dysfunctionContinue scheduled melatonin and mirtazapine Neurogenic bowelMonitor for constipation on docusate, senna, and MiraLAX Neurogenic bladderVoiding spontaneously; work on continence through time voids MalnutritionDietitian following closely; continued on diabetic supplements Trialing an increase in mirtazapine to improve dietary intake DVT prophylaxisContinue on subcutaneous heparin CODE STATUS: Full Disposition:To home with assistance from family - tentative on 09/27/24 Follow-up:[place] neurology within 2 weeks of discharge Primary care provider within 2 weeks of discharge Miguel Norton, [facility] [place]#[id number] [facility] * Deborah Li, PhD - 09/18/2024 3:50 PM MANAGER [facility] Psychology/Neuropsychology Interim Follow-Up Patient Name: Chaitanya Tena Age: 78 y.o. : 1945 Gender: male Attending Physician: Bernadette Norton MD Attending Neuropsychologist: Deborah Li, Ph.D. Admitted: 09/05/2024 Date: 09/18/24 Time Spent with Patient: 15 Minutes Purpose: Patient is referred for a neuropsychological consultation as part of their comprehensive rehabilitation program in order to evaluate cognitive, behavioral and emotional functioning. Patient was seen for follow-up. Mental Status: Position: in bed Mental Status: Inconsistently responsive Level of Arousal: Hypoaroused Mood: Normal Affect: Consistent, Mood-congruent Behavior: Normal Appropriate Thought Process: Decreased judgment Awareness - Poor , not formally assessed Adjustment: Appropriate; denies current emotional distress Assessment/Intervention: 09/18/24 1330 Location Location Patient Room Individuals Present Individuals Present Staff Behavior Behavior No abnormal behavior Orientation Log (O-LOG) City [address] 3 Hospital Name 1 Month 0 Date 0 Year 2 Day of the Week 0 Clock Time 1 Etiology/Event 3 Pathology Deficits 1 O-LOG Total Score 11 Impressions/Plan: Disorientation and hypoarousal is ongoing. Hypoarousal is significant barrier in that administration of O-log is extended and takes multiple sessions. Cognition: Areas of Cognitive Impairment: Acquired knowledge Attention Awareness deficits Executive functioning Memory Planning and problem solving Processing speed Visual spatial L neglect profound Psych: No psychological/emotional concerns at this time. Diagnostic Impression: R41.841 Cognitive Communication Deficit; R41.89 Other symptoms and signs involving cognitive functions and awareness Plan: Monitoring cognition, behavior, mood Frequency of Contacts: 2-3 times weekly Deborah Li PhD [facility] * [place] Cano, 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 - 09/18/2024 3:05 PM MANAGER [facility] Speech-Language Pathology Treatment Session Note Patient Name: Chaitanya Tena Today's Date: 09/18/2024 Preferred Language: Tanzanian 09/18/24 1505 Time Calculation Start Time 1505 Stop Time 1600 Time Calculation (min) 55 min Others in Attendance Non-provider attendee Family member Session Information Location Bedside Environmental Stimulation Minimal Patient Effort and Participation Fair Purpose/Target Impairment Pain Assessment Pain Assessment 0-10 Pain Score 0 Swallow Swallow Treatment Time 10 Swallowing Activity Component(s) Other (specify) (Family education) Additional Explanation: Activity 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 provided family education regarding results of recent tx sessions, current diet recommendations, swallow strategies, and plan for upcoming tx sessions. All caregiver questions answered at this time. Situation Educated Attention Attention Skill(s) [specify if applicable; eg, sustained] Attention-visual Level of Task Difficulty Basic Additional Explanation: Activity Pt p/w severe L-inattention. Pt completed simple reading task in 1/2 opp given TOTAL A and multimodal cues. During call-light training task, pt unable to consistently locate call-light on remote despite MAX multimodal cues 2/2 severity of L visual inattention Level of Assistance Total assistance Cue/Prompt Type Multimodal Cue/Prompt Intensity Total Comprehension Comprehending [specify word, phrases, sentences, other length] Pt completed simple sentence comprehension task with 80% accuracy given moderate verbal cues Orientation Activity Component(s) Place;Time;Situation/Etiology/Injury Additional Explanation: Activity Pt oriented to general location, city/state, and dx given mod verbal cues. Additional orientation information reviewed and errorless learning provided. Pt inconsistently demonstrated delayed recall of orientation information. Comprehension Score Comprehends Complex or Abstract Information Without Prompting or Cueing No Mode of Comprehension Auditory Understands Directions and Conversations About Daily Needs Patient understand directions and conversation about basic daily needs 50% to 74% of the time Functional Bourbon Measure Comprehension Moderate prompting - 3 Expression Score Expresses Complex or Abstract Information Without Prompting or Cueing No Expression Mode Vocal Expresses Basic Daily Needs and Ideas Patient expresses basic daily needs and ideas 50% to 74% of the time Functional [place]bon Measure Expression Moderate prompting - 3 Social Interaction Score Interacts Appropriately Without Supervision No Appropriate in Social Situations Patient interacts appropriately 25% to 49% of the time, but may need restraint due to socially inappropriate behaviors Functional [place]bon Measure Social Interaction Maximal prompting - 2 Problem Solving Score Solves Complex Problems No Solves Routine Problems Patient solves routine problems less than 25% of the time, needs direction nearly all the time or does not effectively solve problems, and may require constant one-to-one direction to complete simple daily activities, may need a restraint for safety Functional Bourbon Measure Problem Solving Total assistance - 1 Memory Score Recognizes, Remembers Routines, and Executes Requests Without Prompting No Remembers and Executes Requests With Prompting Patient recognizes and remembers 25% to 49% of the time, and needs prompting more than half the time Functional Bourbon Measure Memory Maximal prompting - 2 Goals: Encounter Goals Encounter Goals (Active) LTG - Patient will participate in ongoing diagnostic assessments to determine plan of care Start: 09/06/24 Expected End: 09/28/24 STG - Patient will participate in ongoing diagnostic assessments to determine plan of care Start: 09/06/24 Expected End: 09/28/24 LTG - Orientation to self, time, place, and situation Start: 09/15/24 STG - Express orientation information Start: 09/15/24 LTG - Comprehension of single words and simple expressions Start: 09/15/24 STG - Answer yes/no questions Start: 09/15/24 LTG - Patient will improve on swallowing outcome measure Start: 09/15/24 STG - Improve bolus formation Start: 09/15/24 [place] Cano 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 [facility] * Hina Gaines OT - 09/18/2024 2:45 PM MANAGER WIRELESS Occupational Therapy Treatment Session Note Patient Name: Chaitanya Tena Today's Date: 09/19/2024 Preferred Language: Tanzanian Assessment & Plan Assessment: Plan: Treatment Plan/Goals Established with Patient/Caregiver: Yes Treatment Interventions: ADL retraining, Cognitive reorientation, Aquatic therapy, Compensatory technique education, Endurance training, Equipment evaluation/education, Functional transfer training, Fine motor coordination activities, Neuromuscular reeducation, Orthotic/Orthotic management, Patient/family training, Positioning, UE strengthening/ROM, Visual perceptual retraining OT Plan: Skilled OT OT Frequency: 5-7 times per week OT Planned Treatments: Work simplification, Discharge, Activities of Daily Living, Aquatics, Balance training, Caregiver training, Casting, Cognitive training, Coordination, Developmental skills training, Discharge/Discontinue OT treatment, Dry needling, Edema managment, Electric modalities, Energy conservation training, Equipment assessment, Equipment training, Group therapy, Home program, Joint protection, Manual therapy, Mobility training, Neuromuscular reeducation, Orthotic, Pain management, Patient education, Prevocational training, Safety education, Seating/Positioning, Sensory integration, Spasticity Managment, Splinting, Taping, Therapeutic activities, Therapeutic exercises, Thermal modalities, Visual and perceptual training OT Duration: 3-4 weeks Subjective Pain: 0/10 pre and post therapy pain rating Vital Signs:Patient Vitals for the past 12 hrs: BP MAP (mmHg) Pulse Resp SpO2 09/19/24 1230 -- -- (!) 102 -- -- 09/19/24 1212 -- -- (!) 102 18 97 % 09/19/24 1153 127/63 -- 96 -- -- 09/19/24 1117 (!) 85/63 -- (!) 103 -- -- 09/19/24 1109 (!) 118/57 77 97 -- -- 09/19/24 0848 (!) 113/59 -- (!) 103 -- -- 09/19/24 0845 (!) 84/61 -- (!) 113 -- -- 09/19/24 0836 (!) 118/57 -- (!) 102 -- -- 09/19/24 0800 -- -- 87 -- -- 09/19/24 0709 (!) 124/56 79 87 18 96 % No data found. Objective 09/18/24 1445General Amount of Missed Time (min) 15 Minutes Missed Treatment Reason Patient fatigue (Pt asleep upon OT arrival) Time Calculation Start Time 1445 Stop Time 1500 Time Calculation (min) 15 min Pain Assessment Pain Assessment DVPRS Pain Score 0 Pain Rating Scale (DVPRS) 0 David-Cano FACES Pain Rating 0 Therapeutic Procedures Time Entry Therapeutic Activity Time Entry 15 Therapeutic Activity Therapeutic Activity 1 Pt met in room, supine in bed asleep with no family present. Pt easily arousable, however, with limited command following. OT engaging pt in AROM with yellow theraband for bicep flexion and shoulder extension with Max A and multimodal cuing for task completion. Pt perofrming 1x5 of each. Pt left supine in bed at end of session all needs met. Goals:Encounter Goals Encounter Goals (Active) Patient will perform grooming with minimum assist for improved independencewith ADLs (Progressing) Start: 09/06/24 Expected End: 09/27/24 Patient will perform feeding with minimum assist for improved independence with ADLs (Progressing) Start: 09/06/24 Expected End: 09/27/24 Patient will perform upper body dressing with minimum assist to improve independence with dressing. (Progressing) Start: 09/06/24 Expected End: 09/27/24 Patient will perform lower body dressing with moderate assist to improve independence with dressing. (Progressing) Start: 09/06/24 Expected End: 09/27/24 Pt and/or caregiver(s) will have all appropriate DME, recommendations, or completed prescriptions to maximize pt's safety and independence at discharge. (Progressing) Start: 09/06/24 Expected End: 09/27/24 Patient and/or caregivers will verbalize understanding of home program including safety tips, equipment instructions, and home exercises. (Progressing) Start: 09/06/24 Expected End: 09/27/24 Patient will participate in forced use activities using the affected upper extremity with minimum assistance to inhibit abnormal movement patterns. (Progressing) Start: 09/06/24 Expected End: 09/27/24 Patient will incoporate their affected upper extremity with minimal assist/cues during functional task performance. (Progressing) Start: 09/06/24 Expected End: 09/27/24 Patient will participate in seating and mobility trials to improve posture, reduce tone, and prevent secondary complications. (Progressing) Start: 09/06/24 Expected End: 09/27/24 Hina Gaines OT [facility] * Vannesa Stuart LCSW - 09/18/2024 1:04 PM [facility] Message sent to schedule patient for family training to start 09/25/24 at 9am to 3p. Patient's niece will be moving to [place] to assist with his care at home. Vannesa Stuart LMSW [facility] * Hector Abel, PT - 09/18/2024 1:00 PM [employer] Treatment Session Note Patient Name: Chaitanya Tena Today's Date: 09/19/2024 Preferred Language: Tanzanian Assessment & Plan Assessment: PT Assessment: (P) Pt requires frequent verbal and tactile cues for directions during walking and transfers. Evaluation/Treatment Tolerance: Patient tolerated treatment well Plan: Treatment Plan/Goals Established with Patient/Caregiver: Yes PT Frequency: 60-90 minutes per day PT Planned Treatment: Age appropriate play, Aquatic therapy, Assistive technology, Balance training, Basic activities of daily living, Bed mobility training, Body weight support treadmill training, Caregiver training, Community/Work reintegration, Compression wrapping, Desensitization program, Developmental skills training, Edema management, Electric modalities, Equipment training, Gait training, Group therapy, Home assessment/modification, Manual therapy, Mechanical modalities, Neuromuscular reeducation, Orthotic training, Pain management, Patient education, Positioning, Posture/Body mechanics training, Robotic assisted walking therapy, Spasticity Management, Seating, Stair training, Taping, Therapeutic activities, Therapeutic exercises, Thermal/Light modalities, Transfer training Duration: 3-4 weeks Subjective Pain: Vital Signs: Patient Vitals for the past 12 hrs: BP MAP (mmHg) Pulse Resp SpO2 09/19/24 0836 (!) 118/57 -- (!) 102 -- -- 09/19/24 0709 (!) 124/56 79 87 18 96 % 09/19/24 0147 -- -- 85 18 100 % 09/19/24 0139 -- -- 95 18 98 % No data found. Objective 09/18/24 1300Time Calculation Start Time 1300 Stop Time 1330 Time Calculation (min) 30 min Pain Assessment Pain Assessment DVPRS Pain Score 0 Pain Rating Scale (DVPRS) 0 Therapeutic Activity Therapeutic Activity Time Entry 15 Bed Mobility Bed Mobility Yes Bed Mobility 1 Level of Assistance 1 Partial/Mod assistance Bed Mobility To/From Sitting EOB to supine Transfers Transfer Yes Transfer 1 Technique 1 Stand pivot Level of Assistance 1 Partial/Mod assistance Transfer To/From Wheelchair;Bed;Mat Assistive Devices And Adaptive Equipments No device Gait Training Gait Training Time Entry 15 Gait Training Activity Yes Gait Training Activity 1 Distance (enter in feet) 20', 20' Assistive Devices And Adaptive Equipments No device Level of Assistance 1 Partial/Mod assistance Surface And Method Over ground;Indoor;Even surface General Gait Deviations Decreased kamila;Shuffling Walk 10 Feet Physical Assistance Level 26%-50% CARE Score - Walk 10 Feet 3 PT Assessment PT Assessment Pt requires frequent verbal and tactile cues for directions during walking and transfers. Evaluation/Treatment Tolerance Patient tolerated treatment well Outcome Measures: Patient Education:Education Documentation No documentation found. Education Comments No comments found. Goals:Encounter Goals Encounter Goals (Active) Pt will perform all bed mobility independently (Progressing) Start: 09/06/24 Expected End: 09/27/24 Goal Note Performing with verbal cues and SVN LTG: Pt will ambulate > 150 ft with SPV and LRAD (Progressing) Start: 09/06/24 Expected End: 09/27/24 Goal Note Continuing to trial ambulation with and without RW LTG: Pt will improve BBS to 36/56 to indicate decreased risk for falls (Progressing) Start: 09/06/24 Expected End: 09/27/24 Goal Note 09/18: scores 9/36 STG: Pt will improve BBS to >13/56 to indicate decreased risk for falls (IE5/56, MDC 6.9 pts) (Progressing) Start: 09/06/24 Expected End: 09/20/24 Goal Note 09/18: scores 9/36 Within 2 weeks of starting therapy, the patient and/or family/caregiver will demonstrate independence and be compliant in a written HEP in order to maximize gains made during therapy. (Progressing) Start: 09/06/24 Expected End: 09/27/24 Goal Note Continuing to assess for appropriate HEP LTG: Pt will perform stand step transfers with set-up assist and LRAD (Progressing) Start: 09/06/24 Expected End: 09/27/24 Goal Note Performing with partial A STG: Pt will perform stand step transfers with touch A and LRAD (Progressing) Start: 09/06/24 Expected End: 09/20/24 Goal Note Performing with partial A Encounter Goals (Resolved) STG: Assess gait as appropriate (Completed) Start: 09/06/24 Expected End: 09/13/24 Resolved: 09/12/24 Goal Note Gait with RW and 2 POH Hector Abel, PT [facility] * Thelma Cuevas, PT - 09/18/2024 9:35 AM MANA[employer] Treatment Session Note Patient Name: hCaitanya Tena Today's Date: 09/18/2024 Preferred Language: [place]anian Assessment & Plan Assessment: PT Assessment: Session focuses on functional mobility including transfers to toilet and trasfers to TTB. Pt continues to need max verbal and visual cues for participation in activities, however mobility is continuing to improve. Pt limited at end of session due to fatigue. Handoff to RN due to increased fatigue during session. Plan: Treatment Plan/Goals Established with Patient/Caregiver: Yes PT Frequency: 60-90 minutes per day PT Planned Treatment: Age appropriate play, Aquatic therapy, Assistive technology, Balance training, Basic activities of daily living, Bed mobility training, Body weight support treadmill training, Caregiver training, Community/Work reintegration, Compression wrapping, Desensitization program, Developmental skills training, Edema management, Electric modalities, Equipment training, Gait training, Group therapy, Home assessment/modification, Manual therapy, Mechanical modalities, Neuromuscular reeducation, Orthotic training, Pain management, Patient education, Positioning, Posture/Body mechanics training, Robotic assisted walking therapy, Spasticity Management, Seating, Stair training, Taping, Therapeutic activities, Therapeutic exercises, Thermal/Light modalities, Transfer training Duration: 3-4 weeks Subjective 0935: Pt received sitting in third floor gym with OT present. Pt left seated and secured in [facility] in room at end of session. 1100: Pt received seated in [facility] in room, sleeping but easily arousable. Pt left seated and secured in [facility] with RT present. RN aware of pt being clear to perform transfers to toilet. Pain: Pain Assessment Pain Assessment: DVPRS (09/18/20241099) Pain Score: 0 (09/18/20241099) Pain Rating Scale (DVPRS): No pain (09/18/20241099) DVPRS 11:00: 010 DVPRS: 11:50: 010 Vital Signs: Patient Vitals for the past 12 hrs: BP MAP (mmHg) Pulse Resp SpO2 09/18/24 1202 -- -- 90 16 97 % 09/18/24 1152 -- -- 96 17 95 % 09/18/24 1112 (!) 110/57 -- (!) 101 -- -- 09/18/24 0945 (!) 108/54 -- (!) 119 -- -- 09/18/24 0707 -- -- 94 18 97 % 09/18/24 0659 146/64 91 99 18 97 % 09/18/24 0656 -- -- 84 16 96 % 09/18/24 0655 -- -- 84 16 96 % 09/18/24 0108 -- -- 71 16 -- 09/18/24 0058 -- -- 75 16 99 % No data found. Objective 09/18/24 0935 09/18/24 1100 General Amount of Missed Time (min) 5 Minutes 10 Minutes Missed Time Reason Other (Comment) (meeting needs of previous pt) Patient fatigue Family/Caregiver Present No No Time Calculation Start Time 0935 1100 Stop Time 1000 1150 Time Calculation (min) 25 min 50 min Pain Assessment Pain Assessment DVPRS DVPRS Pain Score 0 0 Pain Rating Scale (DVPRS) 0 0 Therapeutic Activity Therapeutic Activity Time Entry 10 50 Therapeutic Activity 1 practicing transfers to [facility] to B sides practicing functional transfers in restroom for carryover outside of therapy Therapeutic Activity 2 -- functional mobility on mat including rolling, supine to sit Bed Mobility Bed Mobility -- Yes Bed Mobility 1 Level of Assistance 1 -- Supervision/touching assistance Bed Mobility Comments 1 -- VC; assessed on mat Bed Mobility To/From -- Roll left/right Assistive Devices And Adaptive Equipments -- No device Bed Mobility 2 Level of Assistance 2 -- Partial/Mod assistance Bed Mobility Comments 2 -- x8 times; requiring touching A - partial A Bed Mobility To/From -- Supine to sit on EOB Assistive Devices And Adaptive Equipments -- No device Bed Mobility 3 Level of Assistance 3 -- Supervision/touching assistance Bed Mobility Comments 3 -- x8 times, done on mat Bed Mobility To/From -- Sitting EOB to supine Assistive Devices And Adaptive Equipments -- No device Bed Mobility 4 Level of Assistance 4 -- Substantial/Max assistance Bed Mobility Comments 4 -- max VC Bed Mobility To/From -- Other (supine to prone) Assistive Devices And Adaptive Equipments -- No device Roll Left and Right Assistance Needed -- Incidental touching;Verbal cues;Supervision Physical Assistance Level -- No physical assistance CARE Score - Roll Left and Right -- 4 Lying to Sitting on Side of Bed Assistance Needed -- Supervision Physical Assistance Level -- No physical assistance CARE Score - Lying to Sitting on Side of Bed -- 4 Sit to Lying Assistance Needed -- Physical assistance Physical Assistance Level -- 25% or less CARE Score - Sit to Lying -- 3 Transfers Transfer Yes Yes Transfer 1 Technique 1 Squat pivot Stand pivot Level of Assistance 1 Supervision/touching assistance Partial/Mod assistance Trials/Comments 1 x 2 times to B sides -- Transfer To/From Cxirwvhgza-iu-bqm/Gtd-ih-vcgryctgrw Dpteghnilc-hi-ngs/Qfb-zn-jgvgnorbml Assistive Devices And Adaptive Equipments No device No device Transfers 2 Level of Assistance 2 Supervision/touching assistance -- Transfer To/From Tga-my-Cfrqd/Cqznr-vv-Amg -- Assistive Devices And Adaptive Equipments No device -- Chair/Lkx-zu-Nqxmk Transfer Assistance Needed Physical assistance Physical assistance Physical Assistance Level 25% or less 26%-50% Comment spontaneously performing squat pivot stand pivot CARE Score - Chair/Gei-rf-Wdftj Transfer 3 3 Sit to Stand Assistance Needed Physical assistance Physical assistance Physical Assistance Level 25% or less 25% or less Comment no device no device CARE Score - Sit to Stand 3 3 Car Transfer Reason if not Attempted -- Environmental limitations CARE Score - Car Transfer -- 10 Toilet Transfers Toilet Transfer To/From -- Wheelchair;Drop arm commode Transfer Type -- Stand pivot Level of Assistance -- Partial/Mod assistance Assistive Devices And Adaptive Equipments -- No device Toilet Transfers Comments -- to the R; pt taking extended time to transfer back to [facility] due to confusion Tub/Shower Transfers Transfer To/From -- Wheelchair;Tub bench Transfer Type -- Stand pivot Level of Assistance -- Partial/Mod assistance Assistive Devices And Adaptive Equipments -- No device Transfers Comments -- to the R; requiring additional time and Max VC Walk 10 Feet Assistance Needed -- Physical assistance Physical Assistance Level -- Total assistance Comment -- 2 POH due to WC follow CARE Score - Walk 10 Feet -- 1 Walk 50 Feet with Two Turns Reason if not Attempted -- Safety concerns CARE Score - Walk 50 Feet with Two Turns -- 88 Walk 150 Feet Reason if not Attempted -- Safety concerns CARE Score - Walk 150 Feet -- 88 Walking 10 Feet on Uneven Surfaces Reason if not Attempted -- Safety concerns CARE Score - Walking 10 Feet on Uneven Surfaces -- 88 1 Step (Curb) Reason if not Attempted -- Safety concerns CARE Score - 1 Step (Curb) -- 88 4 Steps Reason if not Attempted -- Safety concerns CARE Score - 4 Steps -- 88 12 Steps Reason if not Attempted -- Safety concerns CARE Score - 12 Steps -- 88 Balance/Neuromuscular Re-Education Neuromuscular Re-Education Time Entry 15 -- Activity Component(s) 1 Dynamic;Static;Sitting;Standing -- Assistive Devices And Adaptive Equipments No device -- Balance/Neuromuscular Re-Education Activity 1 Performing static sitting balance and static standing balance (as part of BBS) -- Balance/Neuromuscular Re-Education Activity 2 Practicing balance with sit to stand transfer (as part of BBS) -- Picking Up Object Reason if not Attempted -- Safety concerns CARE Score - Picking Up Object -- 88 Wheel 50 Feet with Two Turns Assistance Needed -- Physical assistance Physical Assistance Level -- Total assistance CARE Score - Wheel 50 Feet with Two Turns -- 1 Type of Wheelchair/Scooter -- Manual Wheel 150 Feet Assistance Needed -- Physical assistance Physical Assistance Level -- Total assistance CARE Score - Wheel 150 Feet -- 1 Type of Wheelchair/Scooter -- Manual PT Assessment PT Assessment Pt tolerates session well. Spontaneously performs squat pivot transfer to B sides with touching A. Session focuses on functional mobility including transfers to toilet and trasfers to TTB. Pt continues to need max verbal and visual cues for participation in activities, however mobility is continuing to improve. Pt limited at end of session due to fatigue. Handoff to RN due to increased fatigue during session. Outcome Measures: [place] Balance Scale 1. Sitting to Standing: Able to stand using hands after several tries 2. Standing Unsupported: Unable to stand 30 seconds unsupported 3. Sitting with Back Unsupported but Feet Supported on Floor or on a Stool: Able to sit 2 minutes under supervision 4. Standing to Sitting: Uses back of legs against chair to control descent 5. Transfers: Able to transfer with verbal cueing and/or supervision 6. Standing Unsupported with Eyes Closed: Needs help to keep from falling 7. Standing Unsupported with Feet Together: Needs help to attain position and unable to hold for 15 seconds 8. Reach Forward with Outstretched Arm While Standing: Loses balance while trying/requires external support 9. Desktop Publishing Specialist Object from Floor from a Standing Position: Unable to try/needs assist to keep from losing balance or falling 10. Turning to Look Behind Over Left and Right Shoulders While Standing: Needs assist to keep from losing balance or falling 11. Turn 360 Degrees: Needs assistance while turning 12. Place Alternate Foot on Step or Stool While Standing Unsupported: Needs assistance to keep from falling/unable to try 13. Standing Unsupported One Foot in Front: Loses balance while stepping or standing 14. Standing on One Leg: Unable to try needs assist to prevent fall [place] Balance Score: 9 6 min walk 6 min walk: 0 10 meter walk (fast and self-selected) 10 meter walk (fast and self-selected): 0 Patient Education:Education Documentation No documentation found. Education Comments No comments found. Goals:Encounter Goals Encounter Goals (Active) Pt will perform all bed mobility independently (Progressing) Start: 09/06/24 Expected End: 09/27/24 Goal Note Performing with verbal cues and SVN LTG: Pt will ambulate > 150 ft with SPV and LRAD (Progressing) Start: 09/06/24 Expected End: 09/27/24 Goal Note Continuing to trial ambulation with and without RW LTG: Pt will improve BBS to 36/56 to indicate decreased risk for falls (Progressing) Start: 09/06/24 Expected End: 09/27/24 Goal Note 09/18: scores 9/36 STG: Pt will improve BBS to >13/56 to indicate decreased risk for falls (IE5/56, MDC 6.9 pts) (Progressing) Start: 09/06/24 Expected End: 09/20/24 Goal Note 09/18: scores 9/36 Within 2 weeks of starting therapy, the patient and/or family/caregiver will demonstrate independence and be compliant in a written HEP in order to maximize gains made during therapy. (Progressing) Start: 09/06/24 Expected End: 09/27/24 Goal Note Continuing to assess for appropriate HEP LTG: Pt will perform stand step transfers with set-up assist and LRAD (Progressing) Start: 09/06/24 Expected End: 09/27/24 Goal Note Performing with partial A STG: Pt will perform stand step transfers with touch A and LRAD (Progressing) Start: 09/06/24 Expected End: 09/20/24 Goal Note Performing with partial A Encounter Goals (Resolved) STG: Assess gait as appropriate (Completed) Start: 09/06/24 Expected End: 09/13/24 Resolved: 09/12/24 Goal Note Gait with RW and 2 POH Thelma Cuevas, PT [facility] * Mikayla Guadalupe, OT - 09/18/2024 8:05 AM MANA[employer] Treatment Session Note Patient Name: Chaitanya Tena Today's Date: 09/18/2024 Preferred Language: [place]anian Assessment & Plan Assessment: OT Assessment: Pt only demo'd difficulty with following commands and confusion during t/f from EOB to w/c - otherwise partial A needed for mobility. Improvement noted in self care for UB dressing. Static sitting balance improving and mirror for visual feedback assists with body awareness Plan: Treatment Plan/Goals Established with Patient/Caregiver: Yes Treatment Interventions: ADL retraining, Cognitive reorientation, Aquatic therapy, Compensatory technique education, Endurance training, Equipment evaluation/education, Functional transfer training, Fine motor coordination activities, Neuromuscular reeducation, Orthotic/Orthotic management, Patient/family training, Positioning, UE strengthening/ROM, Visual perceptual retraining OT Plan: Skilled OT OT Frequency: 5-7 times per week OT Planned Treatments: Work simplification, Discharge, Activities of Daily Living, Aquatics, Balance training, Caregiver training, Casting, Cognitive training, Coordination, Developmental skills training, Discharge/Discontinue OT treatment, Dry needling, Edema managment, Electric modalities, Energy conservation training, Equipment assessment, Equipment training, Group therapy, Home program, Joint protection, Manual therapy, Mobility training, Neuromuscular reeducation, Orthotic, Pain management, Patient education, Prevocational training, Safety education, Seating/Positioning, Sensory integration, Spasticity Managment, Splinting, Taping, Therapeutic activities, Therapeutic exercises, Thermal modalities, Visual and perceptual training OT Duration: 3-4 weeks Subjective Pain: Pain Assessment Pain Assessment: DVPRS (09/18/2024799) Pain Rating Scale (DVPRS): No pain (09/18/2024799) Vital Signs: Patient Vitals for the past 12 hrs: BP MAP (mmHg) Pulse Resp SpO2 09/18/24 1202 -- -- 90 16 97 % 09/18/24 1152 -- -- 96 17 95 % 09/18/24 1112 (!) 110/57 -- (!) 101 -- -- 09/18/24 0945 (!) 108/54 -- (!) 119 -- -- 09/18/24 0707 -- -- 94 18 97 % 09/18/24 0659 146/64 91 99 18 97 % 09/18/24 0656 -- -- 84 16 96 % 09/18/24 0655 -- -- 84 16 96 % 09/18/24 0108 -- -- 71 16 -- 09/18/24 0058 -- -- 75 16 99 % No data found. Objective 09/18/24 0800 General Family/Caregiver Present No Time Calculation Start Time 0805 Stop Time 0935 Time Calculation (min) 90 min Pain Assessment Pain Assessment DVPRS Pain Rating Scale (DVPRS) 0 ADL UE Dressing Activity Component(s) Short sleeve shirt LE Dressing Activity Component(s) Pants Shower/Bathe Self Assistance Needed Physical assistance Physical Assistance Level 51%-75% CARE Score - Shower/Bathe Self 2 Oral Hygiene Assistance Needed Physical assistance Physical Assistance Level 51%-75% CARE Score - Oral Hygiene 2 Upper Body Dressing Dressing Location/Position In bed Level of Assistance Partial/Mod assistance Upper Body Dressing Assistance Needed Physical assistance Physical Assistance Level 26%-50% CARE Score - Upper Body Dressing 3 Lower Body Dressing Dressing Location/Position In bed Level of Assistance Substantial/Max assistance Lower Body Dressing Assistance Needed Physical assistance Physical Assistance Level 51%-75% CARE Score - Lower Body Dressing 2 Footwear Dressing Activity Component(s) Socks;Slip on shoes;Compression hose/stockings Dressing Location/Position In bed Level of Assistance Substantial/Max assistance Putting On/Taking Off Footwear Assistance Needed Physical assistance Physical Assistance Level 76% or more CARE Score - Putting On/Taking Off Footwear 2 Eating Assistance Needed Physical assistance Physical Assistance Level 76% or more CARE Score - Eating 2 Toileting Hygiene Assistance Needed Physical assistance Physical Assistance Level 76% or more CARE Score - Toileting Hygiene 2 Toilet Transfer Assistance Needed Physical assistance Physical Assistance Level 76% or more CARE Score - Toilet Transfer 2 Bed Mobility Bed Mobility Yes Bed Mobility 1 Level of Assistance 1 Partial/Mod assistance Bed Mobility To/From Supine to sit on EOB Assistive Devices And Adaptive Equipments No device Transfers Transfer Yes Transfer 1 Technique 1 Stand pivot Level of Assistance 1 Dependent (2 person assist due to pushing after frequent attempts) Trials/Comments 1 Multiple trials with multimodal cues to t/f to w/c with only OT assistance however after significant time and multiple trials, another pair of hands needed to assist to chair. Transfer To/From Wheelchair;Bed Assistive Devices And Adaptive Equipments No device Transfers 2 Technique 2 Stand pivot Level of Assistance 2 Partial/Mod assistance Transfer To/From Mat;Wheelchair Assistive Devices And Adaptive Equipments No device Therapeutic Activity Therapeutic Activity 1 Sit to stands 2 sets of x5 with touch A to partial A overall and max vc's Therapeutic Activity 2 Sitting EOM without back support for static sitting balance; wedge placed at R side for pushing set up however only leaning back noted today with less cues needed to stop leaning towards the L OT Assessment OT Assessment Pt only demo'd difficulty with following commands and confusion during t/f from EOB to w/c - otherwise partial A needed for mobility. Improvement noted in self care for UB dressing. Static sitting balance improving and mirror for visual feedback assists with body awareness Patient Education: Education Documentation No documentation found. Education Comments No comments found. Goals: Encounter Goals Encounter Goals (Active) Patient will perform grooming with minimum assist for improved independence with ADLs (Progressing) Start: 09/06/24 Expected End: 09/27/24 Patient will perform feeding with minimum assist for improved independence with ADLs (Progressing) Start: 09/06/24 Expected End: 09/27/24 Patient will perform upper body dressing with minimum assist to improve independence with dressing. (Progressing) Start: 09/06/24 Expected End: 09/27/24 Patient will perform lower body dressing with moderate assist to improve independence with dressing. (Progressing) Start: 09/06/24 Expected End: 09/27/24 Pt and/or caregiver(s) will have all appropriate DME, recommendations, or completed prescriptions to maximize pt's safety and independence at discharge. (Progressing) Start: 09/06/24 Expected End: 09/27/24 Patient and/or caregivers will verbalize understanding of home program including safety tips, equipment instructions, and home exercises. (Progressing) Start: 09/06/24 Expected End: 09/27/24 Patient will participate in forced use activities using the affected upper extremity with minimum assistance to inhibit abnormal movement patterns. (Progressing) Start: 09/06/24 Expected End: 09/27/24 Patient will incoporate their affected upper extremity with minimal assist/cues during functional task performance. (Progressing) Start: 09/06/24 Expected End: 09/27/24 Patient will participate in seating and mobility trials to improve posture, reduce tone, and prevent secondary complications. (Progressing) Start: 09/06/24 Expected End: 09/27/24 Mikayla Guadalupe OT [facility] G[employer] * Kristen Dumont MD - 09/17/2024 12:59 PM MANAGER [facility]ist Consult Progress Note Subjective No recent events or issues No cough congestion shortness of breath fevers chills Objective Vitals: 09/17/24 0151 09/17/24 0752 09/17/24 0754 09/17/24 0754 BP: (!) 163/85 Pulse: 88 88 Resp: 18 17 Temp: SpO2: 97% Physical exam General Alert, No apparent distress ENT moist mucous membrane Eyes pupils reactive to light Cardiovascular regular rate and rhythm peripheral pulses intact Pulmonary clear to auscultation no wheezing GI soft nontender nondistended positive bowel sound Neuro left-sided weakness follows commands Current Active Medications amLODIPine, 10 mg, Oral, Daily aspirin, 324 mg, Nasogastric, Daily atorvastatin, 80 mg, Oral, Daily bisacodyl, 10 mg, Rectal, Every evening Boost Glucose Control, 1 Container, Oral, TID with meals caffeine, 100 mg, Oral, BID Docusate Sodium, 100 mg, Per G Tube, q12h heparin, 5,000 Units, Subcutaneous, q8h influenza vaccine, 0.5 mL, Intramuscular, During hospitalization insulin glargine, 30 Units, Subcutaneous, Every evening insulin lispro, 6 Units, Subcutaneous, TID with meals ipratropium-albuterol, 3 mL, Nebulization, q6h losartan, 75 mg, Oral, Daily melatonin, 3 mg, Per G Tube, Nightly mirtazapine, 15 mg, Oral, Nightly modafinil, 100 mg, Oral, Daily polyethylene glycol (PEG) 3350, 17 g, Per G Tube, q12h sennosides, 1 tablet, Oral, Nightly PRN medications: bisacodyl, dextrose, glucagon, insulin lispro, levETIRAcetam, magnesium hydroxide, midazolam, sodium chloride Assessment and PlanPatient Active Problem List Diagnosis Acute ischemic stroke (HCC) Cerebrovascular accident (CVA) (HCC) Diabetes mellitus (HCC) 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) Delirium Dysphagia Hyperlipidemia Primary hypertension Uncontrolled type 2 diabetes mellitus with hyperglycemia (HCC) Acute stroke due to thrombosis of right middle cerebral artery (HCC) Cognitive communication deficit 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 Hospital course was complicated by pneumonia which was treated with antibiotics. Antibiotics were completed on 08/28. Now patient is transferred here for comprehensive rehab. Acute CVARight MCA CVA on 08/19 status post TNK and endovascular thrombectomy on 08/19 MRI consistent with right MCA infarct DAPT with aspirin and Plavix for 21 days and aspirin lifelong thereafter Per neurology etiology of stroke was embolic stroke of undetermined source Aspirin and statin for secondary prevention Comprehensive rehab per primary team Hypoxic respiratory failureCompleted antibiotics on - for pneumonia respiratory therapy DysphagiaContinue dysphagia diet with 1:1 feeding Monitor for aspiration HypertensionContinue amlodipine 10 mg p.o. daily, losartan 75 mg daily Type 2 diabetesHemoglobin A1c is 9.4 Lantus 30 units and Lispro TID 6 units - with meals 1:1 Feed Sliding scale insulin Hospitalist will continue to follow please reach out with any questions orissues GER WIRELESS * Tiffany Melo MD - 09/17/2024 11:12 AM MANAGER WIRELESS REASON FOR ADMISSION/CC: Stroke SUBJECTIVE: No overnight events. Patient appears comfortable. No nursing concerns. OBJECTIVE: Vitals: 09/17/24 0924 BP: 154/60 Pulse: Resp: Temp: SpO2: amLODIPine, 10 mg, Oral, Daily aspirin, 324 mg, Nasogastric, Daily atorvastatin, 80 mg, Oral, Daily bisacodyl, 10 mg, Rectal, Every evening Boost Glucose Control, 1 Container, Oral, TID with meals caffeine, 100 mg, Oral, BID Docusate Sodium, 100 mg, Per G Tube, q12h heparin, 5,000 Units, Subcutaneous, q8h influenza vaccine, 0.5 mL, Intramuscular, During hospitalization insulin glargine, 30 Units, Subcutaneous, Every evening insulin lispro, 6 Units, Subcutaneous, TID with meals ipratropium-albuterol, 3 mL, Nebulization, q6h losartan, 75 mg, Oral, Daily melatonin, 3 mg, Per G Tube, Nightly mirtazapine, 15 mg, Oral, Nightly modafinil, 100 mg, Oral, Daily polyethylene glycol (PEG) 3350, 17 g, Per G Tube, q12h sennosides, 1 tablet, Oral, Nightly PRN medications: bisacodyl, dextrose, glucagon, insulin lispro, levETIRAcetam, magnesium hydroxide, midazolam, sodium chloride Physical Exam:General: No acute distress. Appears well-developed. HEENT: MMM. No scleral icterus. CV: No pallor. No cyanosis. Pulm: Respirations non-labored. No cough Psych: Calm and cooperative. 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 Continue current medical management. - Continue comprehensive rehabilitation per primary team. Patient discussed with Dr. Melo. Gilda Johnson, [id number] I was present and participated in the salient parts of this evaluation and/or procedure and was present for the entire encounter. I agree with the above note and any necessary changes have either been made or will follow. Tiffany Melo, MDDirector, [facility] Clinical ProfessorUnChicago, [place] GER WIRELESS GER WIRELESS * Kiki Delgado, OT - 09/16/2024 2:00 PM MANAGER WIRELESS Treatment Session Note Patient Name: Chaitanya Tena Today's Date: 09/16/2024 Preferred Language: Tanzanian Assessment & Plan Assessment: Evaluation/Treatment Tolerance: Patient tolerated treatment well (Pt demonstrates with improved transfers, sitting balance, pt still requires maximum vcs and tactile cues during tasks due to visual impairments) Plan: Treatment Plan/Goals Established with Patient/Caregiver: Yes Treatment Interventions: ADL retraining, Cognitive reorientation, Aquatic therapy, Compensatory technique education, Endurance training, Equipment evaluation/education, Functional transfer training, Fine motor coordination activities, Neuromuscular reeducation, Orthotic/Orthotic management, Patient/family training, Positioning, UE strengthening/ROM, Visual perceptual retraining OT Plan: Skilled OT OT Frequency: 5-7 times per week OT Planned Treatments: Work simplification, Discharge, Activities of Daily Living, Aquatics, Balance training, Caregiver training, Casting, Cognitive training, Coordination, Developmental skills training, Discharge/Discontinue OT treatment, Dry needling, Edema managment, Electric modalities, Energy conservation training, Equipment assessment, Equipment training, Group therapy, Home program, Joint protection, Manual therapy, Mobility training, Neuromuscular reeducation, Orthotic, Pain management, Patient education, Prevocational training, Safety education, Seating/Positioning, Sensory integration, Spasticity Managment, Splinting, Taping, Therapeutic activities, Therapeutic exercises, Thermal modalities, Visual and perceptual training OT Duration: 3-4 weeks Subjective Pain: Pain Assessment Pain Assessment: 0-10 (09/16/20241399) Pain Score: 0 (09/16/20241399) Pain Rating Scale (DVPRS): No pain (09/16/20241399) David-Cano FACES Pain Rating: No hurt (09/16/20241399) Vital Signs: Patient Vitals for the past 12 hrs: BP MAP (mmHg) Pulse Resp SpO2 09/16/24 1733 -- -- 96 17 96 % 09/16/24 1732 138/66 -- -- -- -- 09/16/24 1240 -- -- 92 18 100 % 09/16/24 1232 -- -- 89 18 98 % 09/16/24 1207 -- -- 95 -- -- 09/16/24 0830 117/65 82 -- -- -- 09/16/24 0829 117/65 -- (!) 108 -- -- No data found. Objective 09/16/24 1400 Time Calculation Start Time 1400 Stop Time 1500 Time Calculation (min) 60 min Pain Assessment Pain Assessment 0-10 Pain Score 0 Pain Rating Scale (DVPRS) 0 David-Cano FACES Pain Rating 0 Transfer 1 Technique 1 Stand pivot Level of Assistance 1 Supervision/touching assistance Trials/Comments 1 toward right Transfer To/From Wheelchair;Mat Transfers 2 Technique 2 Stand pivot Level of Assistance 2 Partial/Mod assistance Trials/Comments 2 toward left Transfer To/From Mat;Wheelchair Therapeutic Exercise Therapeutic Exercise Activity 1 PT performs BUE strengthening using 2# dowel performing chest press 3 sets x 10 reps with AAROM Position 1 Seated Therapeutic Activity Therapeutic Activity 1 Pt performs reaching from right to left with moderate assistance due to visual impairments., Pt is able to sit EOM with supervision Therapeutic Activity 2 Pt participates in ball toss with physiotherapy assistant with maximum v/cs and tactile cues due visual impairments Therapeutic Activity 3 Pt participates in bimanual activity of folding wash clothes with maximum vc's and tactile cues due to visual/perceptual impairments OT Assessment Evaluation/Treatment Tolerance Patient tolerated treatment well (Pt demonstrates with improved transfers, sitting balance, pt still requires maximum vcs and tactile cues during tasks due to visual impairments) Patient Education: Education Documentation No documentation found. Education Comments No comments found. Goals: Encounter Goals Encounter Goals (Active) Patient will perform grooming with minimum assist for improved independence with ADLs (Progressing) Start: 09/06/24 Expected End: 09/27/24 Patient will perform feeding with minimum assist for improved independence with ADLs (Progressing) Start: 09/06/24 Expected End: 09/27/24 Patient will perform upper body dressing with minimum assist to improve independence with dressing. (Progressing) Start: 09/06/24 Expected End: 09/27/24 Patient will perform lower body dressing with moderate assist to improve independence with dressing. (Progressing) Start: 09/06/24 Expected End: 09/27/24 Pt and/or caregiver(s) will have all appropriate DME, recommendations, or completed prescriptions to maximize pt's safety and independence at discharge. (Progressing) Start: 09/06/24 Expected End: 09/27/24 Patient and/or caregivers will verbalize understanding of home program including safety tips, equipment instructions, and home exercises. (Progressing) Start: 09/06/24 Expected End: 09/27/24 Patient will participate in forced use activities using the affected upper extremity with minimum assistance to inhibit abnormal movement patterns. (Progressing) Start: 09/06/24 Expected End: 09/27/24 Patient will incoporate their affected upper extremity with minimal assist/cues during functional task performance. (Progressing) Start: 09/06/24 Expected End: 09/27/24 Patient assessment the need for fabrication and wearing of left UE resting for spasticity management (Progressing) Start: 09/06/24 Expected End: 09/27/24 Patient will participate in seating and mobility trials to improve posture, reduce tone, and prevent secondary complications. (Progressing) Start: 09/06/24 Expected End: 09/27/24 Kiki Delgado OT GER WIRELESS * Piper Flannery 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 - 09/16/2024 11:00 AM MANAGER WIRELESS Speech-Language Pathology Treatment Session Note Patient Name: Chaitanya Tena Today's Date: 09/16/2024 Preferred Language: Tanzanian 09/16/24 1107 Time Calculation Start Time 1107 Stop Time 1130 Time Calculation (min) 23 min General Amount of Missed Time (min) 7 Minutes Missed Time Reason Other (Comment) (Transition between pt sessions) Pain Assessment Pain Assessment 0-10 Pain Score 0 Orientation Additional Explanation: Activity Pt only oriented to self. Orientation concepts reviewed at length, with variable responsiveness elicited given consistent max cueing for alertness/attention. Pt appropriately oriented to place and situation following extended review and min cueing by end of session. Hypoarousal was a barrier. Problem Solving Additional Explanation: Activity Pt with limited insight into current physical impairments. Pt unable to provide solution to simple problem scenarios related to hospital setting despite max cueing. Call light reviewed and practiced. Hypoarousal was a barrier. Problem Solving Score Solves Complex Problems No Solves Routine Problems Patient solves routine problems less than 25% of the time, needs direction nearly all the time or does not effectively solve problems, and may require constant one-to-one direction to complete simple daily activities, may need a restraint for safety Functional Bourbon Measure Problem Solving Total assistance - 1 Memory Score Recognizes, Remembers Routines, and Executes Requests Without Prompting No Remembers and Executes Requests With Prompting Patient recognizes and remembers less than 25% of the time, or does not effectively recognize and remember Functional Bourbon Measure Memory Total assistance - 1 Goals: Encounter Goals Encounter Goals (Active) LTG - Patient will participate in ongoing diagnostic assessments to determine plan of care Start: 09/06/24 Expected End: 09/28/24 STG - Patient will participate in ongoing diagnostic assessments to determine plan of care Start: 09/06/24 Expected End: 09/28/24 LTG - Orientation to self, time, place, and situation Start: 09/15/24 STG - Express orientation information Start: 09/15/24 LTG - Comprehension of single words and simple expressions Start: 09/15/24 STG - Answer yes/no questions Start: 09/15/24 LTG - Patient will improve on swallowing outcome measure Start: 09/15/24 STG - Improve bolus formation Start: 09/15/24 Piper Flannery 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 GER WIRELESS * Naheed Riley, PT - 09/16/2024 9:00 AM MANAGER WIRELESS Physical Therapy Treatment Session Note Patient Name: Chaitanya Tena Today's Date: 09/16/2024 Preferred Language: Tanzanian Assessment & Plan Assessment: PT Assessment: 30 min session: pt tolerated well, no issues. handed off to daughter to return to the room (yellow band) Plan: Treatment Plan/Goals Established with Patient/Caregiver: Yes PT Frequency: 60-90 minutes per day PT Planned Treatment: Age appropriate play, Aquatic therapy, Assistive technology, Balance training, Basic activities of daily living, Bed mobility training, Body weight support treadmill training, Caregiver training, Community/Work reintegration, Compression wrapping, Desensitization program, Developmental skills training, Edema management, Electric modalities, Equipment training, Gait training, Group therapy, Home assessment/modification, Manual therapy, Mechanical modalities, Neuromuscular reeducation, Orthotic training, Pain management, Patient education, Positioning, Posture/Body mechanics training, Robotic assisted walking therapy, Spasticity Management, Seating, Stair training, Taping, Therapeutic activities, Therapeutic exercises, Thermal/Light modalities, Transfer training Duration: 3-4 weeks Subjective Pain: Pain Assessment Pain Assessment: David-Cano FACES (09/16/2024899) Pain Score: 0 (09/16/2024899) 0 Vital Signs: Patient Vitals for the past 12 hrs: BP MAP (mmHg) Pulse Resp SpO2 09/16/24 0830 117/65 82 -- -- -- 09/16/24 0829 117/65 -- (!) 108 -- -- 09/16/24 0637 -- -- 98 16 100 % 09/16/24 0629 -- -- 99 16 95 % No data found. Objective 09/16/24899 Time Calculation Start Time 0900 Stop Time 0930 Time Calculation (min) 30 min Pain Assessment Pain Assessment David-Cano FACES Pain Score 0 Therapeutic Exercise Therapeutic Exercise Time Entry 5 Therapeutic Exercise Activity 1 sit to stands in parallel bars with partial A (x10 reps) Position 1 Standing Therapeutic Activity Therapeutic Activity Time Entry 10 Therapeutic Activity 1 pearl zuniga and mahogany monroy Gait Training Gait Training Time Entry 15 Gait Training Activity Yes Gait Training Activity 1 Distance (enter in feet) x10 ft, x30 ft Assistive Devices And Adaptive Equipments No device (therapist assisting at the front) Level of Assistance 1 Dependent (MAX A x1 and MOD-MAX A from 2nd POH, and close WC follow) Surface And Method Over ground;Indoor Gait Deviations Left Lateral trunk lean;Steppage gait Gait Deviations Right Steppage gait PT Assessment PT Assessment 30 min session: pt tolerated well, no issues. handed off to daughter to return to the room (yellow band) Patient Education: Education Documentation No documentation found. Education Comments No comments found. Goals: Encounter Goals Encounter Goals (Active) Pt will perform all bed mobility independently (Progressing) Start: 09/06/24 Expected End: 09/27/24 Goal Note Continuing to require substantial A LTG: Pt will ambulate > 150 ft with SPV and LRAD (Progressing) Start: 09/06/24 Expected End: 09/27/24 Goal Note Pt ambulates 50 feet on Tuesday 09/11 LTG: Pt will improve BBS to 36/56 to indicate decreased risk for falls (Progressing) Start: 09/06/24 Expected End: 09/27/24 Goal Note 09/12: scores 7/56 STG: Pt will improve BBS to >13/56 to indicate decreased risk for falls (IE5/56, MDC 6.9 pts) (Progressing) Start: 09/06/24 Expected End: 09/20/24 Goal Note 09/12: scores 7/56 Within 2 weeks of starting therapy, the patient and/or family/caregiver will demonstrate independence and be compliant in a written HEP in order to maximize gains made during therapy. (Progressing) Start: 09/06/24 Expected End: 09/27/24 Goal Note Continuing to assess LTG: Pt will perform stand step transfers with set-up assist and LRAD (Progressing) Start: 09/06/24 Expected End: 09/27/24 Goal Note Pt currently requiring substantial A without AD STG: Pt will perform stand step transfers with touch A and LRAD (Progressing) Start: 09/06/24 Expected End: 09/20/24 Goal Note Pt currently requiring substantial A without AD Encounter Goals (Resolved) STG: Assess gait as appropriate (Completed) Start: 09/06/24 Expected End: 09/13/24 Resolved: 09/12/24 Goal Note Gait with RW and 2 POH Naheed Riley PT GER WIRELESS * Bernadette Norton MD - 09/15/2024 8:34 PM MANAGER WIRELESS Physical Medicine & Rehabilitation Daily Progress Note Code status: Full Code Current diet: Adult Diet Dysphagia; 0 - Thin Liquids; 5 - Minced & Moist (Dysphagia Ground); 1:1 Feeding Isolation: No active isolations Allergies: Patient has no known allergies. Subjective: No events report last night by nursing. Pain is controlled Objective: Sleep hours logged Nighttime Sleep Hours: 9 hrs Last Bowel Movement: Last BM Date: 09/15/24 Stool Color: Brown Stool Appearance: Soft Stool Amount: Large Bowel Incontinence: Yes Bowel Elimination Assistance Level: Assistive person Labs Lab Results Component Value Date WBC 8.21 09/11/2024 Hgb 11.5 (L) 09/11/2024 Hct 35.9 (L) 09/11/2024 Plt Count 312 09/11/2024 Cholesterol 149 08/19/2024 Triglycerides 83 08/19/2024 HDL Cholesterol 46.4 08/19/2024 ALT 16 09/11/2024 AST 23 09/11/2024 Sodium Lvl 141 09/11/2024 Potassium Lvl 3.9 09/11/2024 Chloride Lvl 104 09/11/2024 Creatinine Lvl 0.97 09/11/2024 BUN 18 09/11/2024 CO2 Lvl 28.1 09/11/2024 INR 0.95 08/19/2024 Hgb A1C 9.40 (H) 08/19/2024 Vitals Vitals: 09/15/24 1850 09/15/24201709/15/24201909/15/242020 BP: 145/77 Pulse: (!) 101 98 Resp: 18 16 Temp: 36.5 ?C (97.7 ?F) SpO2: 99% 24 Hr Tmax: Temp (24hrs), Av.7 ?C (98.1 ?F), Min:36.5 ?C (97.7 ?F), Max:37.1 ?C (98.8 ?F) Latest Weight: 82.3 kg (181 lb 7 oz) Intake & Output Intake/Output Summary (Last 24 hours) at 09/15/20242033 Last data filed at 09/15/2024 1000 Gross per 24 hour Intake -- Output 1 ml Net -1 ml I/O last 3 completed shifts: In: - (0 mL/kg) Out: 1 (0 mL/kg) [Stool:1] Weight: 82.3 kg No intake/output data recorded. Medications amLODIPine, 10 mg, Oral, Daily aspirin, 324 mg, Nasogastric, Daily atorvastatin, 80 mg, Oral, Daily bisacodyl, 10 mg, Rectal, Every evening Boost Glucose Control, 1 Container, Oral, TID with meals caffeine, 100 mg, Oral, BID Docusate Sodium, 100 mg, Per G Tube, q12h heparin, 5,000 Units, Subcutaneous, q8h influenza vaccine, 0.5 mL, Intramuscular, During hospitalization insulin glargine, 30 Units, Subcutaneous, Every evening insulin lispro, 6 Units, Subcutaneous, TID with meals ipratropium-albuterol, 3 mL, Nebulization, q6h losartan, 75 mg, Oral, Daily melatonin, 3 mg, Per G Tube, Nightly mirtazapine, 15 mg, Oral, Nightly modafinil, 100 mg, Oral, Daily polyethylene glycol (PEG) 3350, 17 g, Per G Tube, q12h sennosides, 1 tablet, Oral, Nightly PRN medications: bisacodyl, dextrose, glucagon, insulin lispro, levETIRAcetam, magnesium hydroxide, midazolam, sodium chloride Physical Exam:General: in no distress HEENT: moist mucous membranes; left ptosis CV: no peripheral cyanosis Pulm: normal respiratory effort GI: non-distended abdomen Derm: no rashes or ulcers in areas examed Psych: calm, cooperative DIAGNOSES & PROBLEMSPrincipal Problem: 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 male with hx of prior ischemic stroke w/ no residual deficits, HTN, DM2, lung cancer (last treatment 2021) who presented to [facility] on 08/19 w/ left sided weakness and neglect, found to have R MCA stroke s/p TNK and endovascular thrombectomy on 08/19 with subsequent improvement in strength and mentation. Mild hemorrhagic conversion. Acute care course c/b CAP s/p completion of abx on 08/28/24 Right middle cerebral artery strokeStable neurologic status; admission imaging did show some minimal hemorrhagic conversion Completed 21 days of dual antiplatelet therapy and currently on aspirin monotherapy in addition to atorvastatin for secondary stroke prevention Left hemiparesisOngoing work on neuromuscular education Cognitive deficitsSevere; arousal is the most problematic at this time Continued on caffeine and modafinil; trialing the addition of noontime modafinil starting on 09/15/2024 Gait abnormalityOngoing work on independence in mobility with physical and Occupational Therapy DysarthriaOngoing work on articulation strategies speech-language pathology HypertensionBlood pressure is controlled on current dosages of amlodipine and losartan HyperglycemiaContinued on long-acting glargine as well as Premeal insulin Blood glucoses are still variable; ongoing adjustments from internal medicine Sleep dysfunctionContinue scheduled melatonin and mirtazapine Neurogenic bowelMonitor for constipation on docusate, senna, and MiraLAX Neurogenic bladderVoiding spontaneously; work on continence through time voids MalnutritionDietitian following closely; continued on diabetic supplements Trialing and increase in mirtazapine to improve dietary intake DVT prophylaxisContinue on subcutaneous heparin CODE STATUS: Full Disposition:To home with assistance from family - tentative on 09/27/24 Follow-up:[place] [facility] within 2 weeks of discharge Primary care provider within 2 weeks of discharge Pharmacy rounds conducted today. Reviewed the patient's current medicationswith our pharmacist as well as discussed the patient's nutritional status with our dietitian. See separate note for detailed list of recommendations and interventions. Miguel Norton, [facility] [place]#[id number] GER [facility]IRELESS * Sadaf Barragan, OT - 09/15/2024 3:40 PM MANAGER WIRELESS Occupational Therapy Treatment Session Note Patient Name: Chaitanya Tena Today's Date: 09/15/2024 Preferred Language: Tanzanian Assessment & Plan Assessment: OT Assessment: Pt demonstrated significant L visual field deficits with potential visual field cut, and impulsivity. Pt returns to room and remains with all immediate needs met upon OT departure. Plan: Treatment Plan/Goals Established with Patient/Caregiver: Yes Treatment Interventions: ADL retraining, Cognitive reorientation, Aquatic therapy, Compensatory technique education, Endurance training, Equipment evaluation/education, Functional transfer training, Fine motor coordination activities, Neuromuscular reeducation, Orthotic/Orthotic management, Patient/family training, Positioning, UE strengthening/ROM, Visual perceptual retraining OT Plan: Skilled OT OT Frequency: 5-7 times per week OT Planned Treatments: Work simplification, Discharge, Activities of Daily Living, Aquatics, Balance training, Caregiver training, Casting, Cognitive training, Coordination, Developmental skills training, Discharge/Discontinue OT treatment, Dry needling, Edema managment, Electric modalities, Energy conservation training, Equipment assessment, Equipment training, Group therapy, Home program, Joint protection, Manual therapy, Mobility training, Neuromuscular reeducation, Orthotic, Pain management, Patient education, Prevocational training, Safety education, Seating/Positioning, Sensory integration, Spasticity Managment, Splinting, Taping, Therapeutic activities, Therapeutic exercises, Thermal modalities, Visual and perceptual training OT Duration: 3-4 weeks Subjective Pain: Pain Assessment Pain Assessment: DVPRS (09/15/2024 1540) Pain Score: 0 (09/15/2024 1540) Pain Rating Scale (DVPRS): No pain (09/15/2024 1540) Vital Signs: Patient Vitals for the past 24 hrs: BP MAP (mmHg) Pulse Resp SpO2 09/15/24 1521 118/68 95 82 -- 100 % 09/15/24 1418 -- -- 80 -- -- 09/15/24 1302 -- -- 58 16 100 % 09/15/24 1254 -- -- 57 16 94 % 09/15/24 1110 (!) 111/57 -- (!) 106 -- -- 09/15/24 0839 (!) 163/65 98 100 16 -- 09/15/24 0731 (!) 117/58 78 -- -- -- 09/15/24 0714 -- -- 83 18 100 % 09/15/24 0706 -- -- 80 18 93 % 09/15/24 0142 -- -- 92 16 100 % 09/15/24 0132 -- -- 96 16 98 % 09/14/242039 -- -- 97 16 99 % 09/14/242029 -- -- 93 16 97 % 09/14/241946 -- -- -- 16 -- 09/14/241945 (!) 121/48 72 95 -- -- 09/14/24 1705 (!) 119/59 79 -- -- -- Objective 09/15/24 1540 General Amount of Missed Time (min) 10 Minutes Missed Treatment Reason Toileting (With PCT) Time Calculation Start Time 1540 Stop Time 1600 Time Calculation (min) 20 min Pain Assessment Pain Assessment DVPRS Pain Score 0 Pain Rating Scale (DVPRS) 0 Transfer 1 Technique 1 Stand step Level of Assistance 1 Partial/Mod assistance Trials/Comments 1 pt required max mulitmodal cueing for L visual attending, identifying sitting surface and redirecting pt secondary to impulsivity Transfer To/From Rjacixzpnt-yk-gov/Ebu-yb-qrwodxkmrt Balance/Neuromuscular Re-Education Balance/Neuromuscular Re-Education Activity 1 EOM pt engaged in above shoulder reaching to L for improved visual scanning and UE, postural strengthening and NMR Position 1 Seated OT Assessment OT Assessment Pt demonstrated significant L visual field deficits with potential visual field cut, and impulsivity. Pt returns to room and remains with all immediate needs met upon OT departure. Sadaf Barragan OT [facility] * Thelma Cuevas, PT - 09/15/2024 2:30 PM MANA[facility] Treatment Session Note Patient Name: Chaitanya Tena Today's Date: 09/16/2024 Preferred Language: Tanzanian Assessment & Plan Assessment: Pt tolerates treatment well, progressing transfers to L side as well. Limited by hemineglect and visual field deficits. Plan: Treatment Plan/Goals Established with Patient/Caregiver: Yes PT Frequency: 60-90 minutes per day PT Planned Treatment: Age appropriate play, Aquatic therapy, Assistive technology, Balance training, Basic activities of daily living, Bed mobility training, Body weight support treadmill training, Caregiver training, Community/Work reintegration, Compression wrapping, Desensitization program, Developmental skills training, Edema management, Electric modalities, Equipment training, Gait training, Group therapy, Home assessment/modification, Manual therapy, Mechanical modalities, Neuromuscular reeducation, Orthotic training, Pain management, Patient education, Positioning, Posture/Body mechanics training, Robotic assisted walking therapy, Spasticity Management, Seating, Stair training, Taping, Therapeutic activities, Therapeutic exercises, Thermal/Light modalities, Transfer training Duration: 3-4 weeks Subjective Pt received sitting in [facility] agreeable to therapy. Pt left seated and secured in room in [facility]. Pain: DVPRS: 0/10 DVPRS After: 0/10 Vital Signs: Patient Vitals for the past 12 hrs: BP MAP (mmHg) Pulse Resp SpO2 09/16/24 1240 -- -- 92 18 100 % 09/16/24 1232 -- -- 89 18 98 % 09/16/24 1207 -- -- 95 -- -- 09/16/24 0830 117/65 82 -- -- -- 09/16/24 0829 117/65 -- (!) 108 -- -- 09/16/24 0637 -- -- 98 16 100 % 09/16/24 0629 -- -- 99 16 95 % No data found. Objective 09/15/24 1430 Time Calculation Start Time 1430 Stop Time 1457 Time Calculation (min) 27 min Pain Assessment Pain Assessment DVPRS Pain Rating Scale (DVPRS) 0 Therapeutic Activity Therapeutic Activity Time Entry 18 Therapeutic Activity 1 massed practice transfers both to R and to L side Transfers Transfer Yes Transfer 1 Technique 1 Stand pivot Level of Assistance 1 Partial/Mod assistance Trials/Comments 1 requiring maximum VC and tactile cueing for transfer to L Transfer To/From Xuscpocesf-kd-pxs/Cqe-xd-slkngapkiu Assistive Devices And Adaptive Equipments No device Transfers 2 Level of Assistance 2 Supervision/touching assistance Transfer To/From Twh-fq-Vzork/Yebrz-jm-Ptl Assistive Devices And Adaptive Equipments No device Sit to Stand Assistance Needed Physical assistance Physical Assistance Level 25% or less CARE Score - Sit to Stand 3 Balance/Neuromuscular Re-Education Neuromuscular Re-Education Time Entry 9 Activity Component(s) 1 Dynamic;Standing;Internal Pertubation Assistive Devices And Adaptive Equipments No device Balance/Neuromuscular Re-Education Activity 1 standing balance initially Balance/Neuromuscular Re-Education Activity 2 standing balance with addition of side stepping and forward stepping with partial A (addition of internal perturbation0 PT Assessment PT Assessment Pt tolerates treatment well, progressing transfers to L side as well. Limited by hemineglect and visual field deficits. Patient Education: Education Documentation No documentation found. Education Comments No comments found. Goals: Encounter Goals Encounter Goals (Active) Pt will perform all bed mobility independently (Progressing) Start: 09/06/24 Expected End: 09/27/24 Goal Note Continuing to require substantial A LTG: Pt will ambulate > 150 ft with SPV and LRAD (Progressing) Start: 09/06/24 Expected End: 09/27/24 Goal Note Pt ambulates 50 feet on Tuesday 09/11 LTG: Pt will improve BBS to 36/56 to indicate decreased risk for falls (Progressing) Start: 09/06/24 Expected End: 09/27/24 Goal Note 09/12: scores 7/56 STG: Pt will improve BBS to >13/56 to indicate decreased risk for falls (IE5/56, MDC 6.9 pts) (Progressing) Start: 09/06/24 Expected End: 09/20/24 Goal Note 09/12: scores 7/56 Within 2 weeks of starting therapy, the patient and/or family/caregiver will demonstrate independence and be compliant in a written HEP in order to maximize gains made during therapy. (Progressing) Start: 09/06/24 Expected End: 09/27/24 Goal Note Continuing to assess LTG: Pt will perform stand step transfers with set-up assist and LRAD (Progressing) Start: 09/06/24 Expected End: 09/27/24 Goal Note Pt currently requiring substantial A without AD STG: Pt will perform stand step transfers with touch A and LRAD (Progressing) Start: 09/06/24 Expected End: 09/20/24 Goal Note Pt currently requiring substantial A without AD Encounter Goals (Resolved) STG: Assess gait as appropriate (Completed) Start: 09/06/24 Expected End: 09/13/24 Resolved: 09/12/24 Goal Note Gait with RW and 2 POH Thelma Cuevas PT [facility] * Kristen Dumont MD - 09/15/2024 1:02 PM MANA[facility] Hospitalist Consult Progress Note Subjective No recent events or issues Follow-up on medicine consultation Objective Vitals: 09/15/24 0714 09/15/24 0731 09/15/24 0839 09/15/24 1110 BP: (!) 117/58 (!) 163/65 (!) 111/57 Pulse: 83 100 (!) 106 Resp: 18 16 Temp: 37.1 ?C (98.8 ?F) SpO2: 100% Physical exam General Alert, No apparent distress ENT moist mucous membrane Eyes pupils reactive to light Cardiovascular regular rate rhythm peripheral pulses intact Pulmonary clear to auscultation no wheezing GI soft nontender nondistended positive bowel sound Neuro left-sided weakness follows commands Current Active Medications amLODIPine, 10 mg, Oral, Daily aspirin, 324 mg, Nasogastric, Daily atorvastatin, 80 mg, Oral, Daily bisacodyl, 10 mg, Rectal, Every evening Boost Glucose Control, 1 Container, Oral, TID with meals caffeine, 100 mg, Oral, BID Docusate Sodium, 100 mg, Per G Tube, q12h heparin, 5,000 Units, Subcutaneous, q8h influenza vaccine, 0.5 mL, Intramuscular, During hospitalization insulin glargine, 30 Units, Subcutaneous, Every evening insulin lispro, 8 Units, Subcutaneous, TID with meals ipratropium-albuterol, 3 mL, Nebulization, q6h losartan, 75 mg, Oral, Daily melatonin, 3 mg, Per G Tube, Nightly mirtazapine, 15 mg, Oral, Nightly modafinil, 100 mg, Oral, Daily polyethylene glycol (PEG) 3350, 17 g, Per G Tube, q12h sennosides, 1 tablet, Oral, Nightly PRN medications: bisacodyl, dextrose, glucagon, insulin lispro, levETIRAcetam, magnesium hydroxide, midazolam, sodium chloride Assessment and PlanPatient Active Problem List Diagnosis Acute ischemic stroke (HCC) Cerebrovascular accident (CVA) (HCC) Diabetes mellitus (HCC) 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) Delirium Dysphagia Hyperlipidemia Primary hypertension Uncontrolled type 2 diabetes mellitus with hyperglycemia (HCC) Acute stroke due to thrombosis of right middle cerebral artery (HCC) Cognitive communication deficit 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 Hospital course was complicated by pneumonia which was treated with antibiotics. Antibiotics were completed on 08/28. Now patient is transferred here for comprehensive rehab. Acute CVARight MCA CVA on 08/19 status post TNK and endovascular thrombectomy on 08/19 MRI consistent with right MCA infarct DAPT with aspirin and Plavix for 21 days and aspirin lifelong thereafter Per neurology etiology of stroke was embolic stroke of undetermined source Comprehensive rehab per primary team Aspirin and statin for secondary prevention Hypoxic respiratory failureCompleted antibiotics on 08-28 for pneumonia Supportive care, respiratory therapy DysphagiaContinue dysphagia diet with 1:1 feeding Monitor for aspiration HypertensionContinue amlodipine 10 mg p.o. daily, losartan 75 mg daily Pressures appropriate Type 2 diabetesHemoglobin A1c is 9.4 Lantus 30 units and Lispro TID 8 decreased to 6 units - with meals 1:1 Feed Sliding scale insulin Blood sugars mostly under 200 a few under 80 Hospitalist will continue to follow please reach out with any questions orissues [facility] * Phoenix Cano 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 - 09/15/2024 1:00 PM MANAGER [facility] Speech-Language Pathology Treatment Session Note Patient Name: Chaitanya Tena Today's Date: 09/15/2024 Preferred Language: [place]anian 09/15/24 1300 Time Calculation Start Time 1300 Stop Time 1348 Time Calculation (min) 48 min General Amount of Missed Time (min) 12 Minutes Missed Time Reason Other (Comment);Patient fatigue (transition b/w sessions/limited engagement) Session Information Location Quiet space Environmental Stimulation Quiet Patient Effort and Participation Poor Purpose/Target Impairment Pain Assessment Pain Assessment DVPRS Pain Rating Scale (DVPRS) 0 Attention Attention Skill(s) [specify if applicable; eg, sustained] Sustained Task Employed Naming task Level of Task Difficulty Basic Additional Explanation: Activity 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 engaged pt in gnerative naming task targeting simple sustained attention; however, pt unable to sustain attention to task for greater than 30-60 seconds despite max cues. Level of Assistance Maximal prompting Cue/Prompt Type Verbal;Visual Cue/Prompt Intensity Maximum Situation Stand alone activity Comprehension Comprehending [specify word, phrases, sentences, other length] Pt answered simple Y/N questions with 70% accuracy. Orientation Activity Component(s) Place;Time;Situation/Etiology/Injury Additional Explanation: Activity Pt oriented to self only. Extensive review of orientation information provided. Pt demonstrated delayed recall of all orientation information except year. Level of Assistance Maximal prompting Cue/Prompt Type Verbal;Visual Cue/Prompt Intensity Maximum Compensatory Strategy Training [specify strategy] External aids Situation Stand alone activity Memory Memory Skill(s) [specify if applicable; eg, STM, LTM] bed bug exterminator;Immediate recall;Delayed recall Task Employed Other;Recall verbal information Level of Task Difficulty Basic Additional Explanation: Activity Pt recalled 2/5 childrens names IND, despite max verbal cues no improvement in recall. Pt recalled 4/4 details from conversation given multiple repetitions. Level of Assistance Maximal prompting Cue/Prompt Type Verbal Cue/Prompt Intensity Maximum Situation Stand alone activity Comprehension Score Comprehends Complex or Abstract Information Without Prompting or Cueing No Mode of Comprehension Auditory Understands Directions and Conversations About Daily Needs Patient understand directions and conversation about basic daily needs 50% to 74% of the time Functional [place] Measure Comprehension Moderate prompting - 3 Expression Score Expresses Complex or Abstract Information Without Prompting or Cueing No Expression Mode Vocal Expresses Basic Daily Needs and Ideas Patient expresses basic daily needs and ideas 25% to 49% of the time, uses only single words or gestures and (s)he needs prompting more than half the time Functional [place] Measure Expression Maximal prompting - 2 Memory Score Recognizes, Remembers Routines, and Executes Requests Without Prompting No Remembers and Executes Requests With Prompting Patient recognizes and remembers 25% to 49% of the time, and needs prompting more than half the time Functional [place] Measure Memory Maximal prompting - 2 Goals: Encounter Goals Encounter Goals (Active) LTG - Patient will participate in ongoing diagnostic assessments to determine plan of care Start: 09/06/24 Expected End: 09/28/24 STG - Patient will participate in ongoing diagnostic assessments to determine plan of care Start: 09/06/24 Expected End: 09/28/24 LTG - Orientation to self, time, place, and situation Start: 09/15/24 STG - Express orientation information Start: 09/15/24 LTG - Comprehension of single words and simple expressions Start: 09/15/24 STG - Answer yes/no questions Start: 09/15/24 LTG - Patient will improve on swallowing outcome measure Start: 09/15/24 STG - Improve bolus formation Start: 09/15/24 Phoenix Cano 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 [facility] * Thelma Cuevas, PT - 09/15/2024 11:00 AM MANAGER [facility] Treatment Session Note Patient Name: Chaitanya Tena Today's Date: 09/15/2024 Preferred Language: [place]anian Assessment & Plan Assessment: PT Assessment: Pt noted to have increased lateral lean to the L side today in sitting and in standing, in addition to when in MWC. Pt requiring max verbal cues throughout session for initiation of mobility. Pt with slightly improved participation when outside kicking soccer ball and PT tries to focus on R weight shift in standing via kicking ball with L leg. However, pt continues to demonstrate immediate weight shift back to the left after lifting that foot to kick the ball. Plan: Treatment Plan/Goals Established with Patient/Caregiver: Yes PT Frequency: 60-90 minutes per day PT Planned Treatment: Age appropriate play, Aquatic therapy, Assistive technology, Balance training, Basic activities of daily living, Bed mobility training, Body weight support treadmill training, Caregiver training, Community/Work reintegration, Compression wrapping, Desensitization program, Developmental skills training, Edema management, Electric modalities, Equipment training, Gait training, Group therapy, Home assessment/modification, Manual therapy, Mechanical modalities, Neuromuscular reeducation, Orthotic training, Pain management, Patient education, Positioning, Posture/Body mechanics training, Robotic assisted walking therapy, Spasticity Management, Seating, Stair training, Taping, Therapeutic activities, Therapeutic exercises, Thermal/Light modalities, Transfer training Duration: 3-4 weeks Subjective Pt received sitting on mat in third floor gym with OT. Pt left seated in MWC with all needs met. Pain: Pain Assessment Pain Assessment: DVPRS (09/15/2024 1430) Pain Rating Scale (DVPRS): No pain (09/15/2024 1430) DVPRS after session: 0/10 Vital Signs: Patient Vitals for the past 12 hrs: BP MAP (mmHg) Pulse Resp SpO2 09/15/24 1521 118/68 95 82 -- 100 % 09/15/24 1418 -- -- 80 -- -- 09/15/24 1302 -- -- 58 16 100 % 09/15/24 1254 -- -- 57 16 94 % 09/15/24 1110 (!) 111/57 -- (!) 106 -- -- 09/15/24 0839 (!) 163/65 98 100 16 -- 09/15/24 0731 (!) 117/58 78 -- -- -- 09/15/24 0714 -- -- 83 18 100 % 09/15/24 0706 -- -- 80 18 93 % No data found. Objective 09/15/24 1100 Time Calculation Start Time 1100 Stop Time 1200 Time Calculation (min) 60 min Pain Assessment Pain Assessment DVPRS Pain Score 0 Pain Rating Scale (DVPRS) 0 Therapeutic Exercise Therapeutic Exercise Time Entry 15 Therapeutic Exercise Activity 1 1 x 20 sit to stands from mat and from [facility] level (touching A - partial A) Position 1 Standing Therapeutic Activity Therapeutic Activity Time Entry 30 Therapeutic Activity 1 pt engaging in kicking soccer ball from [facility] level and utilzing L leg to kick ball Therapeutic Activity 2 pt engaging in standing and finding appropriate items for his coffee: cup, lid, cream Transfers Transfer Yes Transfer 1 Technique 1 Stand pivot Level of Assistance 1 Substantial/Max assistance (increased assistance and verbal cues needed due to going to L side) Trials/Comments 1 towards L side Transfer To/From Mat;Wheelchair Assistive Devices And Adaptive Equipments No device Transfers 2 Level of Assistance 2 Partial/Mod assistance Trials/Comments 2 several times throughout session Transfer To/From Bbj-mx-Gjkew/Mpjyt-xh-Mwy Assistive Devices And Adaptive Equipments No device Chair/Zsw-qd-Rssmz Transfer Assistance Needed Physical assistance Physical Assistance Level 51%-75% CARE Score - Chair/Ubj-vl-Ecpxq Transfer 2 Sit to Stand Assistance Needed Physical assistance Physical Assistance Level 25% or less CARE Score - Sit to Stand 3 Balance/Neuromuscular Re-Education Neuromuscular Re-Education Time Entry 15 Activity Component(s) 1 Static;Standing;Dynamic Assistive Devices And Adaptive Equipments No device Balance/Neuromuscular Re-Education Activity 1 initially practicing standing statically with touching A Balance/Neuromuscular Re-Education Activity 2 outside, kicking a soccer ball in standing with R leg x 10 times, then L leg x 5 times; partial A to maintain balance Wheel 50 Feet with Two Turns Assistance Needed Physical assistance Physical Assistance Level Total assistance CARE Score - Wheel 50 Feet with Two Turns 1 Type of Wheelchair/Scooter Manual Wheel 150 Feet Assistance Needed Physical assistance Physical Assistance Level Total assistance CARE Score - Wheel 150 Feet 1 Type of Wheelchair/Scooter Manual PT Assessment PT Assessment Pt noted to have increased lateral lean to the L side today in sitting and in standing, in addition to when in MWC. Pt requiring max verbal cues throughout session for initiation of mobility. Pt with slightly improved participation when outside kicking soccer ball and PT tries to focus on R weight shift in standing via kicking ball with L leg. However, pt continues to demonstrate immediate weight shift back to the left after lifting that foot to kick the ball. Patient Education: Education Documentation No documentation found. Education Comments No comments found. Goals: Encounter Goals Encounter Goals (Active) Pt will perform all bed mobility independently (Progressing) Start: 09/06/24 Expected End: 09/27/24 Goal Note Continuing to require substantial A LTG: Pt will ambulate > 150 ft with SPV and LRAD (Progressing) Start: 09/06/24 Expected End: 09/27/24 Goal Note Pt ambulates 50 feet on Tuesday 09/11 LTG: Pt will improve BBS to 36/56 to indicate decreased risk for falls (Progressing) Start: 09/06/24 Expected End: 09/27/24 Goal Note 09/12: scores 7/56 STG: Pt will improve BBS to >13/56 to indicate decreased risk for falls (IE5/56, MDC 6.9 pts) (Progressing) Start: 09/06/24 Expected End: 09/20/24 Goal Note 09/12: scores 7/56 Within 2 weeks of starting therapy, the patient and/or family/caregiver will demonstrate independence and be compliant in a written HEP in order to maximize gains made during therapy. (Progressing) Start: 09/06/24 Expected End: 09/27/24 Goal Note Continuing to assess LTG: Pt will perform stand step transfers with set-up assist and LRAD (Progressing) Start: 09/06/24 Expected End: 09/27/24 Goal Note Pt currently requiring substantial A without AD STG: Pt will perform stand step transfers with touch A and LRAD (Progressing) Start: 09/06/24 Expected End: 09/20/24 Goal Note Pt currently requiring substantial A without AD Encounter Goals (Resolved) STG: Assess gait as appropriate (Completed) Start: 09/06/24 Expected End: 09/13/24 Resolved: 09/12/24 Goal Note Gait with RW and 2 POH Thelma Cuevas, PT [facility] * Derrell Davis, OT - 09/15/2024 10:00 AM MANAGER [facility]IRELESS Treatment Session Note Patient Name: Chaitanya Tena Today's Date: 09/15/2024 Preferred Language: [place]anian Assessment & Plan Assessment: OT Assessment: Pt demo increased confusion and increased retropulsion during the begining of the session. Pt improved sitting balance and attention towards the end of session Plan: Treatment Plan/Goals Established with Patient/Caregiver: Yes Treatment Interventions: ADL retraining, Cognitive reorientation, Aquatic therapy, Compensatory technique education, Endurance training, Equipment evaluation/education, Functional transfer training, Fine motor coordination activities, Neuromuscular reeducation, Orthotic/Orthotic management, Patient/family training, Positioning, UE strengthening/ROM, Visual perceptual retraining OT Plan: Skilled OT OT Frequency: 5-7 times per week OT Planned Treatments: Work simplification, Discharge, Activities of Daily Living, Aquatics, Balance training, Caregiver training, Casting, Cognitive training, Coordination, Developmental skills training, Discharge/Discontinue OT treatment, Dry needling, Edema managment, Electric modalities, Energy conservation training, Equipment assessment, Equipment training, Group therapy, Home program, Joint protection, Manual therapy, Mobility training, Neuromuscular reeducation, Orthotic, Pain management, Patient education, Prevocational training, Safety education, Seating/Positioning, Sensory integration, Spasticity Managment, Splinting, Taping, Therapeutic activities, Therapeutic exercises, Thermal modalities, Visual and perceptual training OT Duration: 3-4 weeks Subjective Pain Pain Assessment Pain Assessment: DVPRS (09/15/2024 1000) Pain Score: 0 (09/15/2024 1100) Pain Rating Scale (DVPRS): No pain (09/15/2024 1000) Vital Signs: Patient Vitals for the past 12 hrs: BP MAP (mmHg) Pulse Resp SpO2 09/15/24 1521 118/68 95 82 -- 100 % 09/15/24 1418 -- -- 80 -- -- 09/15/24 1302 -- -- 58 16 100 % 09/15/24 1254 -- -- 57 16 94 % 09/15/24 1110 (!) 111/57 -- (!) 106 -- -- 09/15/24 0839 (!) 163/65 98 100 16 -- 09/15/24 0731 (!) 117/58 78 -- -- -- 09/15/24 0714 -- -- 83 18 100 % 09/15/24 0706 -- -- 80 18 93 % No data found. Objective 09/15/24 1100 Time Calculation Start Time 1100 Stop Time 1200 Time Calculation (min) 60 min Pain Assessment Pain Assessment DVPRS Pain Score 0 Pain Rating Scale (DVPRS) 0 Transfers Transfer Yes Transfer 1 Technique 1 Stand pivot Level of Assistance 1 Substantial/Max assistance (increased assistance and verbal cues needed due to going to L side) Trials/Comments 1 towards L side Transfer To/From Mat;Wheelchair Assistive Devices And Adaptive Equipments No device Transfers 2 Level of Assistance 2 Partial/Mod assistance Trials/Comments 2 several times throughout session Transfer To/From Eso-fz-Umuwa/Rynac-dp-Mwc Assistive Devices And Adaptive Equipments No device Therapeutic Procedures Time Entry Neuromuscular Re-Education Time Entry 15 Therapeutic Activity Time Entry 30 Therapeutic Exercise Time Entry 15 Therapeutic Exercise Therapeutic Exercise Activity 1 1 x 20 sit to stands from mat and from [facility] level (touching A - partial A) Position 1 Standing Therapeutic Activity Therapeutic Activity 1 pt engaging in kicking soccer ball from [facility] level and utilzing L leg to kick ball Therapeutic Activity 2 pt engaging in standing and finding appropriate items for his coffee: cup, lid, cream Balance/Neuromuscular Re-Education Balance/Neuromuscular Re-Education Activity 1 initially practicing standing statically with touching A Balance/Neuromuscular Re-Education Activity 2 outside, kicking a soccer ball in standing with R leg x 10 times, then L leg x 5 times; partial A to maintain balance Patient Education: Education Documentation No documentation found. Education Comments No comments found. Goals: Encounter Goals Encounter Goals (Active) Patient will perform grooming with minimum assist for improved independence with ADLs (Progressing) Start: 09/06/24 Expected End: 09/27/24 Patient will perform feeding with minimum assist for improved independence with ADLs (Progressing) Start: 09/06/24 Expected End: 09/27/24 Patient will perform upper body dressing with minimum assist to improve independence with dressing. (Progressing) Start: 09/06/24 Expected End: 09/27/24 Patient will perform lower body dressing with moderate assist to improve independence with dressing. (Progressing) Start: 09/06/24 Expected End: 09/27/24 Pt and/or caregiver(s) will have all appropriate DME, recommendations, or completed prescriptions to maximize pt's safety and independence at discharge. (Progressing) Start: 09/06/24 Expected End: 09/27/24 Patient and/or caregivers will verbalize understanding of home program including safety tips, equipment instructions, and home exercises. (Progressing) Start: 09/06/24 Expected End: 09/27/24 Patient will participate in forced use activities using the affected upper extremity with minimum assistance to inhibit abnormal movement patterns. (Progressing) Start: 09/06/24 Expected End: 09/27/24 Patient will incoporate their affected upper extremity with minimal assist/cues during functional task performance. (Progressing) Start: 09/06/24 Expected End: 09/27/24 Patient assessment the need for fabrication and wearing of left UE resting for spasticity management (Progressing) Start: 09/06/24 Expected End: 09/27/24 Patient will participate in seating and mobility trials to improve posture, reduce tone, and prevent secondary complications. (Progressing) Start: 09/06/24 Expected End: 09/27/24 Derrell Davis OT [facility] * Bernadette Norton MD - 09/14/2024 6:54 PM MANA[facility] Physical Medicine & Rehabilitation Daily Progress Note Code status: Full Code Current diet: Adult Diet Dysphagia; 0 - Thin Liquids; 5 - Minced & Moist (Dysphagia Ground); 1:1 Feeding Isolation: No active isolations Allergies: Patient has no known allergies. Subjective: No events report last night by nursing. Pain is controlled Objective: Sleep hours logged Nighttime Sleep Hours: 12 hrs Last Bowel Movement: Last BM Date: 09/12/24 Stool Color: Brown Stool Appearance: Soft Stool Amount: Large Bowel Incontinence: Yes Bowel Elimination Assistance Level: Assistive equipment and person Labs Lab Results Component Value Date WBC 8.21 09/11/2024 Hgb 11.5 (L) 09/11/2024 Hct 35.9 (L) 09/11/2024 Plt Count 312 09/11/2024 Cholesterol 149 08/19/2024 Triglycerides 83 08/19/2024 HDL Cholesterol 46.4 08/19/2024 ALT 16 09/11/2024 AST 23 09/11/2024 Sodium Lvl 141 09/11/2024 Potassium Lvl 3.9 09/11/2024 Chloride Lvl 104 09/11/2024 Creatinine Lvl 0.97 09/11/2024 BUN 18 09/11/2024 CO2 Lvl 28.1 09/11/2024 INR 0.95 08/19/2024 Hgb A1C 9.40 (H) 08/19/2024 Vitals Vitals: 09/14/24 1213 09/14/24 1222 09/14/24 1252 09/14/24 1705 BP: 138/64 (!) 119/59 Pulse: 92 90 95 Resp: 16 16 16 Temp: SpO2: 96% 98% 24 Hr Tmax: Temp (24hrs), Av.6 ?C (97.9 ?F), Min:36.6 ?C (97.8 ?F), Max:36.8 ?C (98.2 ?F) Latest Weight: 82.3 kg (181 lb 7 oz) Intake & Output No intake or output data in the 24 hours ending 09/14/241853 No intake/output data recorded. No intake/output data recorded. Medications amLODIPine, 10 mg, Oral, Daily aspirin, 324 mg, Nasogastric, Daily atorvastatin, 80 mg, Oral, Daily Boost Glucose Control, 1 Container, Oral, TID with meals caffeine, 100 mg, Oral, Daily Docusate Sodium, 100 mg, Per G Tube, q12h heparin, 5,000 Units, Subcutaneous, q8h influenza vaccine, 0.5 mL, Intramuscular, During hospitalization insulin glargine, 30 Units, Subcutaneous, Every evening insulin lispro, 8 Units, Subcutaneous, TID with meals ipratropium-albuterol, 3 mL, Nebulization, q6h losartan, 75 mg, Oral, Daily melatonin, 3 mg, Per G Tube, Nightly mirtazapine, 15 mg, Oral, Nightly modafinil, 100 mg, Oral, Daily polyethylene glycol (PEG) 3350, 17 g, Per G Tube, q12h sennosides, 1 tablet, Oral, Nightly PRN medications: bisacodyl, dextrose, glucagon, insulin lispro, levETIRAcetam, magnesium hydroxide, midazolam, sodium chloride Physical Exam:General: in no distress HEENT: moist mucous membranes; left ptosis CV: no peripheral cyanosis Pulm: normal respiratory effort GI: non-distended abdomen Derm: no rashes or ulcers in areas examed Psych: calm, cooperative DIAGNOSES & PROBLEMSPrincipal Problem: 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 male with hx of prior ischemic stroke w/ no residual deficits, HTN, DM2, lung cancer (last treatment 2021) who presented to [facility] on 08/19 w/ left sided weakness and neglect, found to have R MCA stroke s/p TNK and endovascular thrombectomy on 08/19 with subsequent improvement in strength and mentation. Mild hemorrhagic conversion. Acute care course c/b CAP s/p completion of abx on 08/28/24 Right middle cerebral artery strokeStable neurologic status; admission imaging did show some minimal hemorrhagic conversion Continued on dual antiplatelet therapy for 21 days followed by aspirin monotherapy. Continued on atorvastatin. Left hemiparesisOngoing work on neuromuscular education Cognitive deficitsSevere; arousal is the most problematic at this time Continued on caffeine and modafinil; trial the addition of noontime modafinil starting on 09/15/2024 Gait abnormalityOngoing work on independence in mobility with physical and Occupational Therapy DysarthriaOngoing work on articulation strategies speech-language pathology HypertensionBlood pressure is controlled on current dosages of amlodipine and losartan HyperglycemiaContinued on long-acting glargine as well as Premeal insulin Blood glucoses are still variable; ongoing adjustments from internal medicine Sleep dysfunctionContinue scheduled melatonin and mirtazapine Neurogenic bowelMonitor for constipation on docusate, senna, and MiraLAX Neurogenic bladderVoiding spontaneously; work on continence through time voids MalnutritionDietitian following closely; continued on diabetic supplements Will trial the increase in mirtazapine to improve dietary intake DVT prophylaxisContinue on subcutaneous heparin CODE STATUS: Full Disposition:To home with assistance from family - tentative on 09/27/24 Follow-up:[facility] within 2 weeks of discharge Primary care provider within 2 weeks of discharge We conducted an interdisciplinary team conference today- see separate note documenting progress of therapies and goals for remaining inpatient rehabilitation. I spent 54 minutes total in patient care ([id number] and on the rehab floor/unit) including discussion with nursing, therapy, social work and case management during interdisciplinary team conference (discussing patient's active medical issues, progress in therapies, and discharge planning) and discussion with the patient/family (regarding current medical status and discharge planning). 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 (CMS/HCC) (HCC) Other abnormalities of gait and mobility Cognitive communication deficit Other hyperlipidemia Other sleep disorders Neurogenic bowel Other neuromuscular dysfunction of bladder Diabetes mellitus due to underlying condition with hyperglycemia, without long-term current use of insulin (HCC) Primary hypertension Intracranial atherosclerosis 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) Uncontrolled type 2 diabetes mellitus with hyperglycemia (HCC) Referring Practitioner: Chaitanya Lewis Today's Date: 09/14/2024 Preferred Language: Tanzanian Objective Note: Upon arrival, Patient was seated EOM in care of PT. Patient was seen for a co-treatment with physical therapy to target L hemineglect. Patient participated in Sensorimotor Rehabilitation and Cognitive Rehabilitation via TIMP and MNT. Patient was able to complete activity with IND assist with 60% accuracy, and verbal and visual cues. Patient Handoff completed with all needs met in care of PT. Treatment 09/14/24 1130 Session Information Session Date 09/14/24 Session Time In 1130 Session Time Out 1200 Session Overview Session Type Co-treat Consent For Session Provided By Other (Comment) (PT) Location Of Session 1st floor gym Patient Positioning For Session Seated EOM Present Upon Arrival Staff Session Description Physical Domain Goals Promote upper extremity engagment Physical Domain Observed Patient Response Increased use of upper extremities Physical Domain Outcome With prompting Cognitive/Neurological Domain Goals Increase/Encourage visual attention Cognitive/Neurological Domain Observed Patient Response Increased visual attention Cognitive/Neurological Domain Patient Outcome With prompting Music Therapy Interventions Sensorimotor Therapeutic Instrumental Music Performance (TIMP): Cognitive Musical Neglect Training (MNT): Recommendations Recommendations For Future Sessions Continue music therapy services;Co-treat with Co-treat With Physical Therapy Recommended Frequency 2-3/week Impression and Plan Recommendations Demonstrates severe L hemineglect with better attention to midline while drumming this date. Able to use both hands to drum with MAX VC for LUE. Barriers to progress include inattention and disorientation. AYAKA Castillo [facility] * Thelma Cuevas, PT - 09/14/2024 2:30 PM MANAGER [employer] Treatment Session Note Patient Name: Chaitanya Tena Today's Date: 09/14/2024 Preferred Language: [place]anian Assessment & Plan Assessment: PT Assessment: PT trialing gait training with pt again today. Of note, pt with improved orientation to midline with standing and is able to stand straight with cueing. However, due to neglect pt walks to the R and is unable to walk straight despite max verbal cueing and tactile cueing. Pt also continues to demonstrate decreased left step length, likely related to neglect. Plan: Treatment Plan/Goals Established with Patient/Caregiver: Yes PT Frequency: 60-90 minutes per day PT Planned Treatment: Age appropriate play, Aquatic therapy, Assistive technology, Balance training, Basic activities of daily living, Bed mobility training, Body weight support treadmill training, Caregiver training, Community/Work reintegration, Compression wrapping, Desensitization program, Developmental skills training, Edema management, Electric modalities, Equipment training, Gait training, Group therapy, Home assessment/modification, Manual therapy, Mechanical modalities, Neuromuscular reeducation, Orthotic training, Pain management, Patient education, Positioning, Posture/Body mechanics training, Robotic assisted walking therapy, Spasticity Management, Seating, Stair training, Taping, Therapeutic activities, Therapeutic exercises, Thermal/Light modalities, Transfer training Duration: 3-4 weeks Subjective Pt received supine in bed, asleep and snoring. Pt left seated in [facility] in room with tv on and call jewell in lap. Pain: Pain Assessment Pain Assessment: DVPRS (09/14/2024 1430) Pain Rating Scale (DVPRS): No pain (09/14/2024 1430) Clinical Progression: Not changed (09/14/2024 1100) Vital Signs: Patient Vitals for the past 12 hrs: BP MAP (mmHg) Pulse Resp SpO2 09/14/24 1252 138/64 89 95 16 -- 09/14/24 1222 -- -- 90 16 98 % 09/14/24 1213 -- -- 92 16 96 % 09/14/24 1131 115/67 -- (!) 110 -- -- 09/14/24 1116 135/63 -- 98 -- -- 09/14/24 0737 155/71 99 78 15 -- 09/14/24 0728 135/62 86 92 16 -- 09/14/24 0711 -- -- 90 17 98 % 09/14/24 0700 -- -- 88 16 95 % 09/14/24 0658 -- -- 88 16 95 % No data found. Objective 09/14/24 1430 Time Calculation Start Time 1430 Stop Time 1500 Time Calculation (min) 30 min Pain Assessment Pain Assessment DVPRS Pain Rating Scale (DVPRS) 0 Therapeutic Activity Therapeutic Activity Time Entry 15 Therapeutic Activity 1 Pt transferring bed > chair Bed Mobility Bed Mobility Yes Bed Mobility 1 Level of Assistance 1 Supervision/touching assistance Bed Mobility To/From Supine to sit on EOB Assistive Devices And Adaptive Equipments Head of bed elevated Lying to Sitting on Side of Bed Assistance Needed Physical assistance Physical Assistance Level 25% or less CARE Score - Lying to Sitting on Side of Bed 3 Transfers Transfer Yes Transfer 1 Technique 1 Stand pivot Level of Assistance 1 Partial/Mod assistance Trials/Comments 1 towards R side Transfer To/From Bed;Wheelchair Assistive Devices And Adaptive Equipments No device Chair/Lur-jv-Glkyt Transfer Assistance Needed Physical assistance Physical Assistance Level 26%-50% CARE Score - Chair/Kko-tf-Fktxb Transfer 3 Gait Training Gait Training Time Entry 15 Gait Training Activity Yes Gait Training Activity 1 Distance (enter in feet) 3 x 14 feet Assistive Devices And Adaptive Equipments No device Level of Assistance 1 Dependent Gait Training Activity 1 Comment Dependent due to needing WC follow, partial A at hips Surface And Method Over ground;Indoor;Even surface Walk 10 Feet Assistance Needed Physical assistance Physical Assistance Level Total assistance Comment 2 POH due to WC follow CARE Score - Walk 10 Feet 1 PT Assessment PT Assessment PT trialing gait training with pt again today. Of note, pt with improved orientation to midline with standing and is able to stand straight with cueing. However, due to neglect pt walks to the R and is unable to walk straight despite max verbal cueing and tactile cueing. Pt also continues to demonstrate decreased left step length, likely related to neglect. Patient Education: Education Documentation No documentation found. Education Comments No comments found. Goals: Encounter Goals Encounter Goals (Active) Pt will perform all bed mobility independently (Progressing) Start: 09/06/24 Expected End: 09/27/24 Goal Note Continuing to require substantial A LTG: Pt will ambulate > 150 ft with SPV and LRAD (Progressing) Start: 09/06/24 Expected End: 09/27/24 Goal Note Pt ambulates 50 feet on Tuesday 09/11 LTG: Pt will improve BBS to 36/56 to indicate decreased risk for falls (Progressing) Start: 09/06/24 Expected End: 09/27/24 Goal Note 09/12: scores 7/56 STG: Pt will improve BBS to >13/56 to indicate decreased risk for falls (IE5/56, MDC 6.9 pts) (Progressing) Start: 09/06/24 Expected End: 09/20/24 Goal Note 09/12: scores 7/56 Within 2 weeks of starting therapy, the patient and/or family/caregiver will demonstrate independence and be compliant in a written HEP in order to maximize gains made during therapy. (Progressing) Start: 09/06/24 Expected End: 09/27/24 Goal Note Continuing to assess LTG: Pt will perform stand step transfers with set-up assist and LRAD (Progressing) Start: 09/06/24 Expected End: 09/27/24 Goal Note Pt currently requiring substantial A without AD STG: Pt will perform stand step transfers with touch A and LRAD (Progressing) Start: 09/06/24 Expected End: 09/20/24 Goal Note Pt currently requiring substantial A without AD Encounter Goals (Resolved) STG: Assess gait as appropriate (Completed) Start: 09/06/24 Expected End: 09/13/24 Resolved: 09/12/24 Goal Note Gait with RW and 2 POH Thelma Cuevas PT [facility] * Erin Appiah, RD - 09/14/2024 1:45 PM MANAGER [facility] Adult Nutrition Assessment Nutrition Diagnosis Nutrition Diagnosis: Inadequate oral intake related to decreased ability to consume sufficient energy as evidenced by documentation. Improved Altered nutrition-related lab values related to ETIOLOGY: endocrine dysfunction as evidenced by abnormal plasma glucose and/or HgbA1c levels. Improved Interventions and Recommendations Continue ONS as ordered - adjust PRN Advance diet as medically feasible per 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 recommendations Continue to encourage adequate intake of meals Obtain weekly weights Nutrition Risk: NUTRITION RISK: Moderate, in 5-7 days Next Date for Nutrition Services Follow Up: 09/22/24 Current Diet Dietary Orders (From admission, onward) Start Ordered 09/08/24 1233 Adult Diet Dysphagia; 0 - Thin Liquids; 5 - Minced & Moist (Dysphagia Ground); 1:1 Feeding Diet effective now Question Answer Comment Diet type Dysphagia Liquid Consistency or Liquid Type: 0 - Thin Liquids Modify Texture or Food Level (Dysphagia): 5 - Minced & Moist (Dysphagia Ground) Tray Precautions: 1:1 Feeding 09/08/24 1233 Percent Meals Eaten for the past 48 hrs: Percent Meals Eaten (%) 09/14/24 1800 75 09/14/24 1200 50 09/14/24 0800 25 09/13/24 1800 75 Oral Supplement(s): Boost Glucose Control TIDEnteral Nutrition: N/a Providing: Communication: Nutrition/Pharmacy Rounds Nutrition Visit [id number] - Pt with variable PO intake per documentation with consistent intake <75% of meals. RD to adjust ONS to help with glucose control. No current documented concerns with N/V - moderate amount of retained fecal matter per admission KUB. Weight loss suspected per documentation available - pt previously with DHT with TF regimen - continue to monitor intake. BG POCs variable at 94-381 mg/dL. Pt currently on diet with no concentrated sweets. 09/14 - Discussed pt with RN. RN stated that pt did not eat much of breakfast this AM, however ate 100% of his lunch. PO intake seems to be lower in the morning with improved intake later in the day. No current issues noted regarding N/V - LBM on 09/15 per documentation. Weight is up compared to weight obtained at time of admission. BG POCs elevated, however improved. AnthropometricsHeight: 170.2 cm (5' 7") Admit WT: 81.3 kg Body mass index is 28.42 kg/m?. Weight History: Wt Readings from Last 14 Encounters: 09/14/24 82.3 kg (181 lb 7 oz) 08/28/24 88 kg (194 lb) Estimated Nutrition NeedsWeight Used for Equation Calculations: 81.3 kg (179 lb 3.7 oz) Calculated Energy Needs Using EquationsHeight: 1.702 m (5' 7") Weight Used for Equation Calculations: 81.3 kg (179 lb 3.7 oz) Energy Equation Used: Rule of thumb (kcal/kg) Energy Lower Range: 25 (kcal/kg) Energy Upper Range: 30 (kcal/day) Energy Needs Lower Range: 2032 kcal/day (kcal/day) Energy Needs Upper Range: 2439 kcal/day Temp: 37.1 ?C (98.8 ?F) Estimated Protein Needs(g/kg) Protein Lower Range: 1.2 (g/kg) Protein Upper Range: 1.5 (g/day) Protein Lower Range: 98 g/day (g/day) Protein Upper Range: 122 g/day Fluid Needs(mL/kg) Fluid Needs: 25 (mL/day) Fluid Needs (Calculated): 2032 mL/day Nutrition Physical FindingsOrientation Level: Disoriented to place; Disoriented to situation O2 Delivery Method: Nasal cannula Gastrointestinal (WDL): X Abdomen Inspection: Soft Abdominal Tenderness: Soft; Nontender Bowel Sounds: All quadrants Bowel Sounds (All Quadrants): Active Last BM Date: 09/15/24 LUE: Limited movement RUE: Limited movement LLE: Limited movement RLE: Limited movement Edema: Left lower extremity LLE Edema: Dependent Skin: Wound care s/o Basic InformationConsulting MD: Bernadette Norton MD Admission Diagnosis: 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 male with hx of prior ischemic stroke w/ no residual deficits, HTN, DM2, lung cancer (last treatment 2021) who presented to [facility] on 08/19 w/ left sided weakness and neglect, found to have R MCA stroke s/p TNK and endovascular thrombectomy on 08/19 with subsequent improvement in strength and mentation. Mild hemorrhagic conversion. Acute care course c/b CAP s/p completion of abx on 08/28/24 Health StatusAllergies No Known Allergies Medications amLODIPine, 10 mg, Oral, Daily aspirin, 324 mg, Nasogastric, Daily atorvastatin, 80 mg, Oral, Daily bisacodyl, 10 mg, Rectal, Every evening Boost Glucose Control, 1 Container, Oral, TID with meals caffeine, 100 mg, Oral, BID Docusate Sodium, 100 mg, Per G Tube, q12h heparin, 5,000 Units, Subcutaneous, q8h influenza vaccine, 0.5 mL, Intramuscular, During hospitalization insulin glargine, 30 Units, Subcutaneous, Every evening insulin lispro, 8 Units, Subcutaneous, TID with meals ipratropium-albuterol, 3 mL, Nebulization, q6h losartan, 75 mg, Oral, Daily melatonin, 3 mg, Per G Tube, Nightly mirtazapine, 15 mg, Oral, Nightly modafinil, 100 mg, Oral, Daily polyethylene glycol (PEG) 3350, 17 g, Per G Tube, q12h sennosides, 1 tablet, Oral, Nightly HistoriesPast Medical History: Diagnosis Date Diabetes mellitus (HCC) Hypertension Lung cancer (HCC) Stroke (HCC) Review ManagementPertinent Labs : Lab Results Component Value Date POC Glu 138 (H) 09/15/2024 No results found for: "CALCIUM", "MG", "PHOS" Intake/Output Summary (Last 24 hours) at 09/15/2024 1345Last data filed at 09/15/2024 1000 Gross per 24 hour Intake -- Output 1 ml Net -1 ml Impression and PlanMonitoring and Evaluation: MONITORING AND EVALUATION: Weight changes, Improved strength/function, Muscle wasting, Fat wasting, and Digestive/abdominal assessment Nutrition Intake: Nutrition Intake : PO intake and tolerance Labs: Glycemic Control Goal: GOAL: >75% of estimated needs met: Progressing Contact InformationErin Apipah MS, RD, LD [phone] [facility] * Thelma Cuevas, PT - 09/14/2024 11:00 AM MANAGER [employer]IREL[employer] Treatment Session Note Patient Name: Chaitanya Tena Today's Date: 09/14/2024 Preferred Language: Tanzanian Assessment & Plan Assessment: PT Assessment: During today' session, pt demonstrates improved use of L side. Although he continues to demonstrate severe L neglect, he uses left hand functionally when petting therapy dog and when participating with music therapy. Pt also able to initiate gait training with no AD and partial A. Pt noted to have significantly decreased step legnth with L leg, likely due to hemineglect and neglect to left side of body. Plan: Treatment Plan/Goals Established with Patient/Caregiver: Yes PT Frequency: 60-90 minutes per day PT Planned Treatment: Age appropriate play, Aquatic therapy, Assistive technology, Balance training, Basic activities of daily living, Bed mobility training, Body weight support treadmill training, Caregiver training, Community/Work reintegration, Compression wrapping, Desensitization program, Developmental skills training, Edema management, Electric modalities, Equipment training, Gait training, Group therapy, Home assessment/modification, Manual therapy, Mechanical modalities, Neuromuscular reeducation, Orthotic training, Pain management, Patient education, Positioning, Posture/Body mechanics training, Robotic assisted walking therapy, Spasticity Management, Seating, Stair training, Taping, Therapeutic activities, Therapeutic exercises, Thermal/Light modalities, Transfer training Duration: 3-4 weeks Subjective Pt received seated in [facility] with head looking towards his R. Pt left seated in [facility] with RN present and RT present giving breathing treatment. Pain: Pain Assessment Pain Assessment: DVPRS (09/14/2024 1100) Pain Rating Scale (DVPRS): No pain (09/14/2024 1100) Clinical Progression: Not changed (09/14/2024 1100) Vital Signs: Patient Vitals for the past 12 hrs: BP MAP (mmHg) Pulse Resp SpO2 09/14/24 1252 138/64 89 95 16 -- 09/14/24 1222 -- -- 90 16 98 % 09/14/24 1213 -- -- 92 16 96 % 09/14/24 1131 115/67 -- (!) 110 -- -- 09/14/24 1116 135/63 -- 98 -- -- 09/14/24 0737 155/71 99 78 15 -- 09/14/24 0728 135/62 86 92 16 -- 09/14/24 0711 -- -- 90 17 98 % 09/14/24 0700 -- -- 88 16 95 % 09/14/24 0658 -- -- 88 16 95 % No data found. Objective 09/14/24 1100 Time Calculation Start Time 1100 Stop Time 1205 Time Calculation (min) 65 min Pain Assessment Pain Assessment DVPRS Pain Rating Scale (DVPRS) 0 Clinical Progression Not changed Therapeutic Exercise Therapeutic Exercise Time Entry 8 Therapeutic Exercise Activity 1 1 x 20 sit to stands (Initially partial A, progressing to touching A but pt using backs of legs against mat) Position 1 Standing Therapeutic Activity Therapeutic Activity Time Entry 15 Therapeutic Activity 1 Pt engaging in pet therapy - PT attempting to get pt to attend to midline. Pt utilizing B hands to pet theapy dog, throwing ball for therapy dog x 5 times Transfers Transfer Yes Transfer 1 Technique 1 Stand pivot Level of Assistance 1 Partial/Mod assistance Trials/Comments 1 to R side each time due to L neglect Transfer To/From [id number]/Abg-[id number] Assistive Devices And Adaptive Equipments No device Transfers 2 Level of Assistance 2 Supervision/touching assistance Trials/Comments 2 Pt utilizing mat posterior to knees Transfer To/From Htv-lv-Zzwhm/Vzksc-pl-Qns Assistive Devices And Adaptive Equipments No device Chair/Gru-vs-Vjahk Transfer Assistance Needed Physical assistance Physical Assistance Level 26%-50% CARE Score - Chair/Fad-ym-Algvy Transfer 3 Sit to Stand Assistance Needed Physical assistance Physical Assistance Level 25% or less Comment no device CARE Score - Sit to Stand 3 Gait Training Gait Training Time Entry 10 Gait Training Activity Yes Gait Training Activity 1 Distance (enter in feet) 5 x 8 feet forwards, then baackwards Assistive Devices And Adaptive Equipments No device Level of Assistance 1 Partial/Mod assistance Gait Training Activity 1 Comment Pt requiring assistance at hips with PT in front. Surface And Method Over ground;Indoor;Even surface Gait Deviations Left Other (comment) (pelvic retraction, decreased step length) Gait Training Activity 2 Distance (enter in feet) 5 x 8 feet laterally (3 x to R, 2x to left) Assistive Devices And Adaptive Equipments No device Level of Assistance 2 Partial/Mod assistance (Max verbal and tactile cues when cueing sidesteps to L due to hemineglect) Gait Training Activity 2 Comment Partial A at hips, assisting with weight shifting Surface And Method Indoor;Over ground;Even surface Balance/Neuromuscular Re-Education Neuromuscular Re-Education Time Entry 32 Activity Component(s) 1 Dynamic;Static;Sitting;Standing Assistive Devices And Adaptive Equipments No device Balance/Neuromuscular Re-Education Activity 1 Sitting and playing drums with music therapy with B hands (needing VC to use L hand, noted to required drumstick with build up for left. Practicing visual tracking from R to midline due to severe L neglect) Balance/Neuromuscular Re-Education Activity 2 Static standing balance 10 x 1 min with partial A - touching A Balance/Neuromuscular Re-Education Activity 3 Dynamic standing balance - hitting drums with B hands with drumsticks Wheel 50 Feet with Two Turns Assistance Needed Physical assistance Physical Assistance Level Total assistance CARE Score - Wheel 50 Feet with Two Turns 1 Type of Wheelchair/Scooter Manual Wheel 150 Feet Assistance Needed Physical assistance Physical Assistance Level Total assistance CARE Score - Wheel 150 Feet 1 Type of Wheelchair/Scooter Manual PT Assessment PT Assessment During today' session, pt demonstrates improved use of L side. Although he continues to demonstrate severe L neglect, he uses left hand functionally when petting therapy dog and when participating with music therapy. Pt also able to initiate gait training with no AD and partial A. Pt noted to have significantly decreased step legnth with L leg, likely due to hemineglect and neglect to left side of body. Patient Education: Education Documentation No documentation found. Education Comments No comments found. Goals: Encounter Goals Encounter Goals (Active) Pt will perform all bed mobility independently (Progressing) Start: 09/06/24 Expected End: 09/27/24 Goal Note Continuing to require substantial A LTG: Pt will ambulate > 150 ft with SPV and LRAD (Progressing) Start: 09/06/24 Expected End: 09/27/24 Goal Note Pt ambulates 50 feet on Tuesday 09/11 LTG: Pt will improve BBS to 36/56 to indicate decreased risk for falls (Progressing) Start: 09/06/24 Expected End: 09/27/24 Goal Note 09/12: scores 7/56 STG: Pt will improve BBS to >13/56 to indicate decreased risk for falls (IE5/56, MDC 6.9 pts) (Progressing) Start: 09/06/24 Expected End: 09/20/24 Goal Note 09/12: scores 7/56 Within 2 weeks of starting therapy, the patient and/or family/caregiver will demonstrate independence and be compliant in a written HEP in order to maximize gains made during therapy. (Progressing) Start: 09/06/24 Expected End: 09/27/24 Goal Note Continuing to assess LTG: Pt will perform stand step transfers with set-up assist and LRAD (Progressing) Start: 09/06/24 Expected End: 09/27/24 Goal Note Pt currently requiring substantial A without AD STG: Pt will perform stand step transfers with touch A and LRAD (Progressing) Start: 09/06/24 Expected End: 09/20/24 Goal Note Pt currently requiring substantial A without AD Encounter Goals (Resolved) STG: Assess gait as appropriate (Completed) Start: 09/06/24 Expected End: 09/13/24 Resolved: 09/12/24 Goal Note Gait with RW and 2 POH Thelma Cuevas, PT GER [employer] * Phoenix Cano CCC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 - 09/14/2024 10:06 AM MANAGER WIRELESS Speech-Language Pathology Treatment Session Note Patient Name: Chaitanya Tena Today's Date: 09/14/2024 Preferred Language: Tanzanian 09/14/24 1006 Time Calculation Start Time 1006 Stop Time 1050 Time Calculation (min) 44 min General Amount of Missed Time (min) 16 Minutes Missed Time Reason Other (Comment);Patient fatigue (transition b/w session) Session Information Location Bedside Environmental Stimulation Quiet Patient Effort and Participation Poor Purpose/Target Impairment Factors Influencing Session Arousal/Consciousness Ease in falling asleep Cognition Inattention;Confusion Pain Assessment Pain Assessment DVPRS Pain Rating Scale (DVPRS) 0 Arousal and Consciousness Facilitation Arousal Sensory Route Tactile: Touch, rub, poke Swallow Swallow Treatment Time 14 Swallowing Activity Component(s) PO Trials Additional Explanation: Activity 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 assisted pt with donning dentures. 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 provided x1 soft and bite-sized trial, pt with disorganized bolus manipulation and mastication, poor labial seal, and poor oral containement. Pt demonstrated difficulty with AP transit d/t disorgainzed oral phase, despite max verbal tactile cues. Liquid rinse trialed to reduce oral resides, pt with strong wet cough x1. No additional trials of soft and bite-sized solids provided. Of note, deficfits in cognitive function and ill-fitting dentures exacerbate severity of oral phase deficits. Level of Assistance Maximal assist Cue/Prompt Type Verbal;Tactile Cue/Prompt Intensity Maximum Situation Stand Alone Activity Attention Attention Skill(s) [specify if applicable; eg, sustained] Attention-visual Level of Task Difficulty Basic Additional Explanation: Activity Pt with R-sided visual preference. Given MAX cues, pt improved visual attention to midline; however, pt without visual attention to L visual field despite max cueing. Level of Assistance Maximal prompting Cue/Prompt Type Verbal;Tactile;Visual Cue/Prompt Intensity Maximum Situation Stand alone activity Orientation Activity Component(s) Self/Autobiographical;Place;Time;Situation/Etiology/Injury Additional Explanation: Activity Pt oriented to self only. 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 provided extensive review of orientation information. Max repetitions provided. No carryover of orientation information provided despite max opp. Level of Assistance Maximal prompting Cue/Prompt Type Verbal;Visual Cue/Prompt Intensity Maximum Compensatory Strategy Training [specify strategy] external aids Situation Stand alone activity Problem Solving Reasoning Skill(s) [specify if applicable; eg, abstract] Insight/self-awareness Task Employed Safe/unsafe scenario Level of Task Difficulty Basic Additional Explanation: Activity Pt unaware of deficits and need for assistance. Insight training provided. 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 trained pt in use of call-light, required max A for use of call-light. When presented with hospital safety questions, pt required MAX cues. Level of Assistance Maximal prompting Cue/Prompt Type Verbal Cue/Prompt Intensity Maximum Situation Stand alone activity Assistive Devices And Adaptive Equipments Other: (specify) (call-light) Comprehension Score Comprehends Complex or Abstract Information Without Prompting or Cueing No Mode of Comprehension Auditory Understands Directions and Conversations About Daily Needs Patient understand directions and conversation about basic daily needs 25% to 49% of the time, understands only simple, commonly used spoken expression, requires prompting more than half the time Functional Bourbon Measure Comprehension Maximal prompting - 2 Expression Score Expresses Complex or Abstract Information Without Prompting or Cueing No Expression Mode Vocal Expresses Basic Daily Needs and Ideas Patient expresses basic daily needs and ideas 25% to 49% of the time, uses only single words or gestures and (s)he needs prompting more than half the time Functional Bourbon Measure Expression Maximal prompting - 2 Social Interaction Score Interacts Appropriately Without Supervision No Appropriate in Social Situations Patient interacts appropriately 25% to 49% of the time, but may need restraint due to socially inappropriate behaviors Functional Bourbon Measure Social Interaction Maximal prompting - 2 Problem Solving Score Solves Complex Problems No Solves Routine Problems Patient solves routine problems 25% to 49% of the time, needs direction more than half the time to initiate, plan, or complete simple daily activities, and may need restraint for safety Functional Bourbon Measure Problem Solving Maximal prompting - 2 Memory Score Recognizes, Remembers Routines, and Executes Requests Without Prompting No Remembers and Executes Requests With Prompting Patient recognizes and remembers 25% to 49% of the time, and needs prompting more than half the time Functional Bourbon Measure Memory Maximal prompting - 2 Goals: Encounter Goals Encounter Goals (Active) LTG - Patient will participate in ongoing diagnostic assessments to determine plan of care Start: 09/06/24 Expected End: 09/28/24 STG - Patient will participate in ongoing diagnostic assessments to determine plan of care Start: 09/06/24 Expected End: 09/28/24 Phoenix Cano 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 * Derrell Davis OT - 09/14/2024 9:00 AM MANAGER WIRELESS Treatment Session Note Patient Name: Chaitanya Tena Today's Date: 09/14/2024 Preferred Language: Tanzanian Assessment & Plan Assessment: OT Assessment: Pt demo increased confusion and req assistance to complete ADL activity and to sustain attention throughout the session Plan: Treatment Plan/Goals Established with Patient/Caregiver: Yes Treatment Interventions: ADL retraining, Cognitive reorientation, Aquatic therapy, Compensatory technique education, Endurance training, Equipment evaluation/education, Functional transfer training, Fine motor coordination activities, Neuromuscular reeducation, Orthotic/Orthotic management, Patient/family training, Positioning, UE strengthening/ROM, Visual perceptual retraining OT Plan: Skilled OT OT Frequency: 5-7 times per week OT Planned Treatments: Work simplification, Discharge, Activities of Daily Living, Aquatics, Balance training, Caregiver training, Casting, Cognitive training, Coordination, Developmental skills training, Discharge/Discontinue OT treatment, Dry needling, Edema managment, Electric modalities, Energy conservation training, Equipment assessment, Equipment training, Group therapy, Home program, Joint protection, Manual therapy, Mobility training, Neuromuscular reeducation, Orthotic, Pain management, Patient education, Prevocational training, Safety education, Seating/Positioning, Sensory integration, Spasticity Managment, Splinting, Taping, Therapeutic activities, Therapeutic exercises, Thermal modalities, Visual and perceptual training OT Duration: 3-4 weeks Subjective Pain: Pain Assessment Pain Assessment: DVPRS (09/14/2024899) Pain Score: 0 (09/14/2024899) Pain Rating Scale (DVPRS): No pain (09/14/2024899) Vital Signs: Patient Vitals for the past 12 hrs: BP MAP (mmHg) Pulse Resp SpO2 09/14/24 1252 138/64 89 95 16 -- 09/14/24 1222 -- -- 90 16 98 % 09/14/24 1213 -- -- 92 16 96 % 09/14/24 1131 115/67 -- (!) 110 -- -- 09/14/24 1116 135/63 -- 98 -- -- 09/14/24 0737 155/71 99 78 15 -- 09/14/24 0728 135/62 86 92 16 -- 09/14/24 0711 -- -- 90 17 98 % 09/14/24 0700 -- -- 88 16 95 % 09/14/24 0658 -- -- 88 16 95 % No data found. Objective 09/14/24 0900 Time Calculation Start Time 0900 Stop Time 1000 Time Calculation (min) 60 min Pain Assessment Pain Assessment DVPRS Pain Score 0 Pain Rating Scale (DVPRS) 0 Arousal/Consciousness Facilitation Arousal;Communication;Attention Sensory Route Visual: Face, light;Nociception: Sternal rub;Tactile: Touch, rub, poke Response To Arousal Technique (needed multimodal cues stay alert during the session) ADL Self Care/Home Management (ADLs) Time Entry 30 Eating Activity Component(s) Set up/Arrange food;Head control;Manage containers/package;Scooping food;Grasp liquid container;Use standard utensils;Food to mouth;Liquid to mouth Diet minced moist; altenate Level of Assistance Substantial/Max assistance Comment req max verbal and multimodal cues to initate and continue eating d/t vision impairrment to increase accuracy of the task; pt with increased lean to right during eaing and needed cues to maintain midline with 50% accurancy Eating Assistance Needed Physical assistance;Verbal cues;Set-up / clean-up Physical Assistance Level 76% or more CARE Score - Eating 2 Transfer 1 Technique 1 Squat pivot Level of Assistance 1 Dependent (req 3 person assitance d/t increased resitance during bed moblity per nursing) Transfer To/From Chair;Bed Assistive Devices And Adaptive Equipments No device Therapeutic Procedures Time Entry Neuromuscular Re-Education Time Entry 30 Balance/Neuromuscular Re-Education Balance/Neuromuscular Re-Education Activity 1 Functional reaching activity challenging MARIO in WC addressing forced used of RUE and req cues for visual scanning throughout the activity. Needed rest breaks d/t overall fatigue throughout the activity Position 1 Seated OT Assessment OT Assessment Pt demo increased confusion and req assistance to complete ADL activity and to sustain attention throughout the session Patient Education: Education Documentation No documentation found. Education Comments No comments found. Goals: Encounter Goals Encounter Goals (Active) Patient will perform grooming with minimum assist for improved independence with ADLs (Progressing) Start: 09/06/24 Expected End: 09/27/24 Patient will perform feeding with minimum assist for improved independence with ADLs (Progressing) Start: 09/06/24 Expected End: 09/27/24 Patient will perform upper body dressing with minimum assist to improve independence with dressing. (Progressing) Start: 09/06/24 Expected End: 09/27/24 Patient will perform lower body dressing with moderate assist to improve independence with dressing. (Progressing) Start: 09/06/24 Expected End: 09/27/24 Pt and/or caregiver(s) will have all appropriate DME, recommendations, or completed prescriptions to maximize pt's safety and independence at discharge. (Progressing) Start: 09/06/24 Expected End: 09/27/24 Patient and/or caregivers will verbalize understanding of home program including safety tips, equipment instructions, and home exercises. (Progressing) Start: 09/06/24 Expected End: 09/27/24 Patient will participate in forced use activities using the affected upper extremity with minimum assistance to inhibit abnormal movement patterns. (Progressing) Start: 09/06/24 Expected End: 09/27/24 Patient will incoporate their affected upper extremity with minimal assist/cues during functional task performance. (Progressing) Start: 09/06/24 Expected End: 09/27/24 Patient assessment the need for fabrication and wearing of left UE resting for spasticity management (Progressing) Start: 09/06/24 Expected End: 09/27/24 Patient will participate in seating and mobility trials to improve posture, reduce tone, and prevent secondary complications. (Progressing) Start: 09/06/24 Expected End: 09/27/24 Derrell Davis OT [employer] * Kristen Dumont MD - 09/13/2024 4:52 PM MANAGER WIRELESS [place] Hospitalist Consult Progress Note Subjective No recent events or issues follow-up on medicine consultation Objective Vitals: 09/13/24 0739 09/13/24 0740 09/13/24 0815 09/13/24 0901 BP: (!) 124/52 (!) 112/54 113/72 Pulse: 98 (!) 108 Resp: 19 Temp: SpO2: Physical exam General No apparent distress ENT moist mucous membrane Eyes pupils reactive to light Cardiovascular regular rate rhythm peripheral pulses intact Pulmonary clear to auscultation no wheezing or accessory muscle use GI soft nontender nondistended positive bowel sound Neuro left-sided weakness follows commands Current Active Medications amLODIPine, 10 mg, Oral, Daily aspirin, 324 mg, Nasogastric, Daily atorvastatin, 80 mg, Oral, Daily Boost Glucose Control, 1 Container, Oral, TID with meals caffeine, 100 mg, Oral, Daily Docusate Sodium, 100 mg, Per G Tube, q12h heparin, 5,000 Units, Subcutaneous, q8h influenza vaccine, 0.5 mL, Intramuscular, During hospitalization insulin glargine, 30 Units, Subcutaneous, Every evening insulin lispro, 8 Units, Subcutaneous, TID with meals ipratropium-albuterol, 3 mL, Nebulization, q6h losartan, 75 mg, Oral, Daily melatonin, 3 mg, Per G Tube, Nightly mirtazapine, 7.5 mg, Oral, Nightly modafinil, 100 mg, Oral, Daily polyethylene glycol (PEG) 3350, 17 g, Per G Tube, q12h sennosides, 1 tablet, Oral, Nightly PRN medications: bisacodyl, dextrose, glucagon, insulin lispro, levETIRAcetam, magnesium hydroxide, midazolam, sodium chloride Assessment and PlanPatient Active Problem List Diagnosis Acute ischemic stroke (HCC) Cerebrovascular accident (CVA) (HCC) Diabetes mellitus (HCC) 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) Delirium Dysphagia Hyperlipidemia Primary hypertension Uncontrolled type 2 diabetes mellitus with hyperglycemia (HCC) Acute stroke due to thrombosis of right middle cerebral artery (HCC) Cognitive communication deficit 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 Hospital course was complicated by pneumonia which was treated with antibiotics. Antibiotics were completed on 08/28. Now patient is transferred here for comprehensive rehab. Acute CVARight MCA CVA on 08/19 status post TNK and endovascular thrombectomy on 08/19 MRI consistent with right MCA infarct DAPT with aspirin and Plavix for 21 days and aspirin lifelong thereafter Per neurology etiology of stroke was embolic stroke of undetermined source Comprehensive rehab per primary team Aspirin and statin for secondary prevention Hypoxic respiratory failureCompleted antibiotics on 08-28 for pneumonia Supportive care, respiratory therapy DysphagiaContinue dysphagia diet with 1:1 feeding Monitor for aspiration HypertensionContinue amlodipine 10 mg p.o. daily, losartan 75 mg daily Pressures appropriate Type 2 diabetes Hemoglobin A1c is 9.4 Lantus 30 units and Lispro TID 8 units - with meal 1:1 Feed Sliding scale insulin Hospitalist will continue to follow please reach out with any questions orissues [employer]ER [employer] * Phoenix Cano 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 - 09/13/2024 3:00 PM MANAGER WIRELESS Speech-Language Pathology Treatment Session Note Patient Name: Chaitanya Tena Today's Date: 09/13/2024 Preferred Language: Tanzanian 09/13/24 1500 Time Calculation Start Time 1500 Stop Time 1525 Time Calculation (min) 25 min General Amount of Missed Time (min) 5 Minutes Missed Time Reason Other (Comment) (transition b/w sessions) Session Information Location Quiet space Environmental Stimulation Quiet Patient Effort and Participation Good Purpose/Target Impairment Pain Assessment Pain Assessment DVPRS Pain Rating Scale (DVPRS) 0 Swallowing Activity Component(s) PO Trials Additional Explanation: Activity Pt with dentures in place. 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 administered soft and bite-sized solids. Pt with adequate oral acceptance, munch-chew mastication, poor labial seal with consistent anterior loss, disorganized bolus formation resulting in bolus scattered t/o oral cavity, l-sided pocketing, and moderate oral residues following multiple cued swallows. Pt benefitted from mod-max verbal/tactile cues for improved attention to L-sided pocketing. Pt required total assist to utilize liquid rinses in order to reduce oral residues. No overt s/s of aspiration appreciated across PO trials. Pt will continue to benefit from PO trials of advanced solids with 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. Level of Assistance Maximal assist Cue/Prompt Type Verbal;Tactile Cue/Prompt Intensity Mod-Max Compensatory Strategy Training [specific strategy] additional dry swallows and liquid rinses Situation Stand Alone Activity Comprehension Score Comprehends Complex or Abstract Information Without Prompting or Cueing No Mode of Comprehension Auditory Understands Directions and Conversations About Daily Needs Patient understand directions and conversation about basic daily needs 50% to 74% of the time Functional Bourbon Measure Comprehension Moderate prompting - 3 Expression Score Expresses Complex or Abstract Information Without Prompting or Cueing No Expression Mode Vocal Expresses Basic Daily Needs and Ideas Patient expresses basic daily needs and ideas 25% to 49% of the time, uses only single words or gestures and (s)he needs prompting more than half the time Functional Bourbon Measure Expression Maximal prompting - 2 Goals: Encounter Goals Encounter Goals (Active) LTG - Patient will participate in ongoing diagnostic assessments to determine plan of care Start: 09/06/24 Expected End: 09/28/24 STG - Patient will participate in ongoing diagnostic assessments to determine plan of care Start: 09/06/24 Expected End: 09/28/24 Pheonix Cano 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 G[employer] * Wiley Melendez MD - 09/13/2024 10:56 AM MANAGER WIRELESS Reason for Admission/Chief Complaint: 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) [I63.311] Subjective: - No acute or new events reported by nursing Scheduled Medications: amLODIPine, 10 mg, Oral, Daily aspirin, 324 mg, Nasogastric, Daily atorvastatin, 80 mg, Oral, Daily Boost Glucose Control, 1 Container, Oral, TID with meals caffeine, 100 mg, Oral, Daily Docusate Sodium, 100 mg, Per G Tube, q12h heparin, 5,000 Units, Subcutaneous, q8h influenza vaccine, 0.5 mL, Intramuscular, During hospitalization insulin glargine, 30 Units, Subcutaneous, Every evening insulin lispro, 8 Units, Subcutaneous, TID with meals ipratropium-albuterol, 3 mL, Nebulization, q6h losartan, 75 mg, Oral, Daily melatonin, 3 mg, Per G Tube, Nightly mirtazapine, 7.5 mg, Oral, Nightly modafinil, 100 mg, Oral, Daily polyethylene glycol (PEG) 3350, 17 g, Per G Tube, q12h sennosides, 1 tablet, Oral, Nightly PRN Medications: PRN medications: bisacodyl, dextrose, glucagon, insulin lispro, levETIRAcetam, magnesium hydroxide, midazolam, sodium chloride Objective: Vitals: 09/13/24 0901 BP: 113/72 Pulse: (!) 108 Resp: Temp: SpO2: Constitutional: not in acute distress Resp: unlabored breathing, no use of accessory muscles of respiration CV: good perfusion of extremities GI: abdomen nondistended Neuro: awake Assessment/Plan: Patient Active Problem List Diagnosis Acute ischemic stroke (HCC) Cerebrovascular accident (CVA) (HCC) Diabetes mellitus (HCC) 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) Delirium Dysphagia Hyperlipidemia Primary hypertension Uncontrolled type 2 diabetes mellitus with hyperglycemia (HCC) Acute stroke due to thrombosis of right middle cerebral artery (HCC) Cognitive communication deficit 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 GER [employer]LESS * Lori Lopez CCC-[employer]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 - 09/13/2024 10:00 AM MANAGER WIRELESS Treatment Session Note Patient Name: Chaitanya Tena Today's Date: 09/13/2024 Preferred Language: Tanzanian Assessment & Plan Assessment: Plan: Treatment Plan/Goals Established with Patient/Caregiver: Yes Treatment/Interventions: Cognitive communication functioning, Executive functioning, Swallow function Frequency: 5-7 days per week Duration: 2 weeks NPO: No Swallow Precautions: Remain upright after meals 30 minutes, Feed only when alert, Alternate liquids/solids, Upright to 90 degrees Solid Consistency: Pureed Liquid Viscosity: Thin Liquids Carbonated Liquids Only: No Medications: Crushed in puree with MD approval Supervision Recommended: 1:1 Compensatory Strategies for Dysphagia: Slow rate, Small bites/sips, Alternate solids and liquids, Position as upright as possible during oral intake Therapeutic Recommendations: Dysphagia tx, Trials with 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 Subjective Pain:Pain Assessment Pain Assessment: DVPRS (09/13/2024 1000) Pain Rating Scale (DVPRS): No pain (09/13/2024 1000) Vital Signs:Patient Vitals for the past 12 hrs: BP MAP (mmHg) Pulse Resp SpO2 09/13/24 1148 -- -- 80 16 97 % 09/13/24 1138 -- -- 82 16 96 % 09/13/24 0901 113/72 -- (!) 108 -- -- 09/13/24 0815 (!) 112/54 73 98 -- -- 09/13/24 0740 -- -- -- 19 -- 09/13/24 0739 (!) 124/52 76 -- -- -- 09/13/24 0702 -- -- 60 16 98 % 09/13/24 0651 -- -- 58 16 97 % 09/13/24 0650 -- -- 58 16 97 % 09/13/24 0212 -- -- 75 18 98 % 09/13/24 0203 -- -- 72 18 97 % No data found. Objective 09/13/24 1000Time Calculation Start Time 1005 Stop Time 1030 Time Calculation (min) 25 min General Amount of Missed Time (min) 5 Minutes Missed Time Reason Unavailable (Comment) (patient late returning from other therapy) Others in Attendance Non-provider attendee Family member Session Information Location Bedside Environmental Stimulation Moderate Patient Effort and Participation Good Purpose/Target Impairment Pain Assessment Pain Assessment DVPRS Pain Rating Scale (DVPRS) 0 Attention Attention Skill(s) [specify if applicable; eg, sustained] Attention-visual Task Employed (visual scanning to L side with targets: paper, people, objects) Level of Task Difficulty Basic Additional Explanation: Activity Pt often briefly turned to midline and moved his eyes laterally to left then returned head and eyes back to the right side. Visual stimuli for calendar cancellation was significantly difficulty. 40% accuracy with reading written stimuli noted. Level of Assistance Maximal prompting Cue/Prompt Type Verbal;Visual;Tactile Cue/Prompt Intensity Maximum Situation Stand alone activity Orientation Activity Component(s) Self/Autobiographical;Place;Time Additional Explanation: Activity spaced retrieval compelted for current date, month, ROSANNA, and year Level of Assistance Maximal prompting Cue/Prompt Type Visual;Verbal Cue/Prompt Intensity Maximum Compensatory Strategy Training [specify strategy] external aids Situation Stand alone activity Memory Score Recognizes, Remembers Routines, and Executes Requests Without Prompting No Remembers and Executes Requests With Prompting Patient recognizes and remembers 25% to 49% of the time, and needs prompting more than half the time Functional [place] Measure Memory Maximal prompting - 2 Patient Education:Education Documentation No documentation found. Education Comments No comments found. Goals:Encounter Goals Encounter Goals (Active) LTG - Patient will participate in ongoing diagnostic assessments to determine plan of care Start: 09/06/24 Expected End: 09/28/24 STG - Patient will participate in ongoing diagnostic assessments to determine plan of care Start: 09/06/24 Expected End: 09/28/24 Lori Lopez CCC-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 GER [employer]ESS * Mikayla Guadalupe, OT - 09/13/2024 9:00 AM MANAGER WIRELESS Treatment Session Note Patient Name: Chaitanya Tena Today's Date: 09/13/2024 Preferred Language: Tanzanian Assessment & Plan Assessment: OT Assessment: Pt in better mood with dtr present; demo'd less pushing however cont. to impulsively lay down on mat on x3 occasions - able to return to sitting c close supervision. Max cues for achieving and maintaining midline gaze. Attempted to promote using LUE during grasp tasks however pt then would return to using R side. Plan: Treatment Plan/Goals Established with Patient/Caregiver: Yes Treatment Interventions: ADL retraining, Cognitive reorientation, Aquatic therapy, Compensatory technique education, Endurance training, Equipment evaluation/education, Functional transfer training, Fine motor coordination activities, Neuromuscular reeducation, Orthotic/Orthotic management, Patient/family training, Positioning, UE strengthening/ROM, Visual perceptual retraining OT Plan: Skilled OT OT Frequency: 5-7 times per week OT Planned Treatments: Work simplification, Discharge, Activities of Daily Living, Aquatics, Balance training, Caregiver training, Casting, Cognitive training, Coordination, Developmental skills training, Discharge/Discontinue OT treatment, Dry needling, Edema managment, Electric modalities, Energy conservation training, Equipment assessment, Equipment training, Group therapy, Home program, Joint protection, Manual therapy, Mobility training, Neuromuscular reeducation, Orthotic, Pain management, Patient education, Prevocational training, Safety education, Seating/Positioning, Sensory integration, Spasticity Managment, Splinting, Taping, Therapeutic activities, Therapeutic exercises, Thermal modalities, Visual and perceptual training OT Duration: 3-4 weeks Subjective Pain: Pain Assessment Pain Assessment: DVPRS (09/13/2024899) Pain Rating Scale (DVPRS): No pain (09/13/2024899) Vital Signs: Patient Vitals for the past 12 hrs: BP MAP (mmHg) Pulse Resp SpO2 09/13/24 1300 115/69 80 84 16 98 % 09/13/24 1148 -- -- 80 16 97 % 09/13/24 1138 -- -- 82 16 96 % 09/13/24 0901 113/72 -- (!) 108 -- -- 09/13/24 0815 (!) 112/54 73 98 -- -- 09/13/24 0740 -- -- -- 19 -- 09/13/24 0739 (!) 124/52 76 -- -- -- 09/13/24 0702 -- -- 60 16 98 % 09/13/24 0651 -- -- 58 16 97 % 09/13/24 0650 -- -- 58 16 97 % No data found. Objective 09/13/24 0900 General Family/Caregiver Present Yes Others Present Daughter Time Calculation Start Time 0900 Stop Time 1000 Time Calculation (min) 60 min Pain Assessment Pain Assessment DVPRS Pain Rating Scale (DVPRS) 0 Transfers Transfer Yes Transfer 1 Technique 1 Stand pivot Level of Assistance 1 Partial/Mod assistance Trials/Comments 1 to and from mat level Transfer To/From Mat;Wheelchair Assistive Devices And Adaptive Equipments No device Balance/Neuromuscular Re-Education Balance/Neuromuscular Re-Education Activity 1 Sitting balance at EOM level; pusher set up c wedge at R side Position 1 Seated Balance/Neuromuscular Re-Education Activity 2 Forward excursions c floor level retrieval reaching Position 2 Seated Balance/Neuromuscular Re-Education Activity 3 R lateral leans reaching out of MARIO to decrease contraversive pushing Position 3 Seated Balance/Neuromuscular Re-Education Activity 4 Visual scanning component with all exercises to bring gaze towards L side and maintain midline Position 4 Seated OT Assessment OT Assessment Pt in better mood with dtr present; demo'd less pushing however cont. to impulsively lay down on mat on x3 occasions - able to return to sitting c close supervision. Max cues for achieving and maintaining midline gaze. Attempted to promote using LUE during grasp tasks however pt then would return to using R side. Patient Education: Education Documentation No documentation found. Education Comments No comments found. Goals: Encounter Goals Encounter Goals (Active) Patient will perform grooming with minimum assist for improved independence with ADLs (Progressing) Start: 09/06/24 Expected End: 09/27/24 Patient will perform feeding with minimum assist for improved independence with ADLs (Progressing) Start: 09/06/24 Expected End: 09/27/24 Patient will perform upper body dressing with minimum assist to improve independence with dressing. (Progressing) Start: 09/06/24 Expected End: 09/27/24 Patient will perform lower body dressing with moderate assist to improve independence with dressing. (Progressing) Start: 09/06/24 Expected End: 09/27/24 Pt and/or caregiver(s) will have all appropriate DME, recommendations, or completed prescriptions to maximize pt's safety and independence at discharge. (Progressing) Start: 09/06/24 Expected End: 09/27/24 Patient and/or caregivers will verbalize understanding of home program including safety tips, equipment instructions, and home exercises. (Progressing) Start: 09/06/24 Expected End: 09/27/24 Patient will participate in forced use activities using the affected upper extremity with minimum assistance to inhibit abnormal movement patterns. (Progressing) Start: 09/06/24 Expected End: 09/27/24 Patient will incoporate their affected upper extremity with minimal assist/cues during functional task performance. (Progressing) Start: 09/06/24 Expected End: 09/27/24 Patient assessment the need for fabrication and wearing of left UE resting for spasticity management (Progressing) Start: 09/06/24 Expected End: 09/27/24 Patient will participate in seating and mobility trials to improve posture, reduce tone, and prevent secondary complications. (Progressing) Start: 09/06/24 Expected End: 09/27/24 Mikayla Guadalupe OT GER [employer]L[facility] * Bernadette Norton MD - 09/12/2024 10:38 PM MANAGER WIRELESS Physical Medicine & Rehabilitation Daily Progress Note Code status: Full Code Current diet: Adult Diet Dysphagia; 0 - Thin Liquids; 5 - Minced & Moist (Dysphagia Ground); 1:1 Feeding Isolation: No active isolations Allergies: Patient has no known allergies. Subjective: No events report last night by nursing. Pain is controlled Objective: Sleep hours logged Nighttime Sleep Hours: 11 hrs Last Bowel Movement: Last BM Date: 09/12/24 Stool Color: Brown Stool Appearance: Soft Stool Amount: Large Bowel Incontinence: Yes Bowel Elimination Assistance Level: Assistive equipment and person Labs Lab Results Component Value Date WBC 8.21 09/11/2024 Hgb 11.5 (L) 09/11/2024 Hct 35.9 (L) 09/11/2024 Plt Count 312 09/11/2024 Cholesterol 149 08/19/2024 Triglycerides 83 08/19/2024 HDL Cholesterol 46.4 08/19/2024 ALT 16 09/11/2024 AST 23 09/11/2024 Sodium Lvl 141 09/11/2024 Potassium Lvl 3.9 09/11/2024 Chloride Lvl 104 09/11/2024 Creatinine Lvl 0.97 09/11/2024 BUN 18 09/11/2024 CO2 Lvl 28.1 09/11/2024 INR 0.95 08/19/2024 Hgb A1C 9.40 (H) 08/19/2024 Vitals Vitals: 09/12/24 1713 09/12/24 1915 09/12/24 1925 09/12/242013 BP: (!) 119/59 (!) (P) 121/92 Pulse: 86 88 (P) 96 Resp: 18 18 Temp: (P) 36.4 ?C (97.6 ?F) SpO2: 96% 97% 24 Hr Tmax: Temp (24hrs), Av.4 ?C (97.6 ?F), Min:36.4 ?C (97.6 ?F), Max:36.4 ?C (97.6 ?F) Latest Weight: 81.5 kg (179 lb 10.8 oz) Intake & Output Intake/Output Summary (Last 24 hours) at 09/12/2024 2238 Last data filed at 09/12/2024 0630 Gross per 24 hour Intake -- Output 2 ml Net -2 ml I/O last 3 completed shifts: In: 237 (2.9 mL/kg) [P.O.:237] Out: 3 (0 mL/kg) [Urine:2 (0 mL/kg/hr); Stool:1] Weight: 81.5 kg No intake/output data recorded. Medications amLODIPine, 10 mg, Oral, Daily aspirin, 324 mg, Nasogastric, Daily atorvastatin, 80 mg, Oral, Daily Boost Glucose Control, 1 Container, Oral, TID with meals caffeine, 100 mg, Oral, Daily Docusate Sodium, 100 mg, Per G Tube, q12h heparin, 5,000 Units, Subcutaneous, q8h influenza vaccine, 0.5 mL, Intramuscular, During hospitalization insulin glargine, 30 Units, Subcutaneous, Every evening insulin lispro, 8 Units, Subcutaneous, TID with meals ipratropium-albuterol, 3 mL, Nebulization, q6h losartan, 75 mg, Oral, Daily melatonin, 3 mg, Per G Tube, Nightly mirtazapine, 7.5 mg, Oral, Nightly modafinil, 100 mg, Oral, Daily polyethylene glycol (PEG) 3350, 17 g, Per G Tube, q12h sennosides, 1 tablet, Oral, Nightly PRN medications: bisacodyl, dextrose, glucagon, insulin lispro, levETIRAcetam, magnesium hydroxide, midazolam, sodium chloride Physical Exam:General: in no distress HEENT: moist mucous membranes; left ptosis CV: no peripheral cyanosis Pulm: normal respiratory effort GI: non-distended abdomen Derm: no rashes or ulcers in areas examed Psych: calm, cooperative DIAGNOSES & PROBLEMSPrincipal Problem: 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 male with hx of prior ischemic stroke w/ no residual deficits, HTN, DM2, lung cancer (last treatment 2021) who presented to [facility] on 08/19 w/ left sided weakness and neglect, found to have R MCA stroke s/p TNK and endovascular thrombectomy on 08/19 with subsequent improvement in strength and mentation. Mild hemorrhagic conversion. Acute care course c/b CAP s/p completion of abx on 08/28/24 Right middle cerebral artery strokeStable neurologic status; admission imaging did show some minimal hemorrhagic conversion Continued on dual antiplatelet therapy for 21 days followed by aspirin monotherapy. Continued on atorvastatin. Left hemiparesisOngoing work on neuromuscular education Cognitive deficitsSevere; arousal is the most problematic at this time Continued on caffeine and modafinil; likely increased modafinil in the coming days Gait abnormalityOngoing work on independence in mobility with physical and Occupational Therapy DysarthriaOngoing work on articulation strategies speech-language pathology HypertensionBlood pressure is controlled on current dosages of amlodipine and losartan HyperglycemiaContinued on long-acting glargine as well as Premeal insulin Blood glucoses are still variable; ongoing adjustments from internal medicine Sleep dysfunctionContinue scheduled melatonin and mirtazapine Neurogenic bowelMonitor for constipation on docusate, senna, and MiraLAX Neurogenic bladderVoiding spontaneously; work on continence through time voids MalnutritionDietitian following closely; continued on diabetic supplements DVT prophylaxisContinue on subcutaneous heparin CODE STATUS: Full Disposition:To home with assistance from family - tentative on 09/27/24 Follow-up:[facility] within 2 weeks of discharge Primary care provider within 2 weeks of discharge We conducted an interdisciplinary team conference today- see separate note documenting progress of therapies and goals for remaining inpatient rehabilitation. I spent 54 minutes total in patient care ([id number] and on the rehab floor/unit) including discussion with nursing, therapy, social work and case management during interdisciplinary team conference (discussing patient's active medical issues, progress in therapies, and discharge planning) and discussion with the patient/family (regarding current medical status and discharge planning). Miguel Norton [facility] [place]#[id number] GER [employer]IRELESS * Vannesa Stuart LCSW - 09/12/2024 4:44 PM MANAGER WIRELESS SW spoke with patient's daughter (Orlin) to provide weekly team rounds update. Patient's dc date has been set for 09/27/24. Patient's functional level: partial/ assist with pivot transfers, dependent with rolling walker. Overall dependent with most ADLs. Anticipated dc needs: due to patient's functional and cognitive deficits, he will require 24hr care and supervision at discharge. DC plan: patient will dc to daughter's house. Per daughter she has a niece that is planning to move and assist with patient's care. Patient will also have Home Healthcare services. SW will continue to follow and assist with dc planning. Vannesa Stuart LMSW GER [employer] * Unruly Chatterjee CCC-[employer]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 - 09/12/2024 3:03 PM MANAGER WIRELESS Speech-Language Pathology Treatment Session Note Patient Name: Chaitanya Tena Today's Date: 09/12/2024 Preferred Language: Tanzanian Assessment & Plan Assessment: Plan: Treatment Plan/Goals Established with Patient/Caregiver: Yes Treatment/Interventions: Cognitive communication functioning, Executive functioning, Swallow function Frequency: 5-7 days per week Duration: 2 weeks NPO: No Swallow Precautions: Remain upright after meals 30 minutes, Feed only when alert, Alternate liquids/solids, Upright to 90 degrees Solid Consistency: Pureed Liquid Viscosity: Thin Liquids Carbonated Liquids Only: No Medications: Crushed in puree with MD approval Supervision Recommended: 1:1 Compensatory Strategies for Dysphagia: Slow rate, Small bites/sips, Alternate solids and liquids, Position as upright as possible during oral intake Therapeutic Recommendations: Dysphagia tx, Trials with 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 Subjective Pain:Pain Assessment Pain Assessment: DVPRS (09/12/2024 1503) Pain Score: 0 (09/12/2024 1503) Pain Rating Scale (DVPRS): No pain (09/12/2024 1503) Vital Signs:Patient Vitals for the past 12 hrs: BP MAP (mmHg) Pulse Resp SpO2 09/12/24 1127 (!) 111/58 -- (!) 102 -- -- 09/12/24 1117 (!) 104/58 -- 95 -- -- 09/12/24 0805 -- -- 77 20 95 % 09/12/24 0804 -- -- 76 -- -- 09/12/24 0730 (!) 138/57 84 -- -- -- No data found. Objective 09/12/24 1503Time Calculation Start Time 1503 Stop Time 1600 Time Calculation (min) 57 min General Amount of Missed Time (min) 20 Minutes Missed Time Reason Toileting Pain Assessment Pain Assessment DVPRS Pain Score 0 Pain Rating Scale (DVPRS) 0 Swallowing Activity Component(s) PO Trials Additional Explanation: Activity Administered trials of thin liquids and soft and bite sized solids with dentures in place. Reduced and disorganized mastication noted. Majority of bolus remained in anterior oral cavity, which pt was not sensate to. Manual removal of bolus required Level of Assistance Moderate assist Cue/Prompt Type Verbal Cue/Prompt Intensity Mod-Max Comprehension Comprehending [specify word, phrases, sentences, other length] Short paragraph: 1/3 Level of Assistance Moderate prompting Cue/Prompt Type Verbal Cue/Prompt Intensity Moderate Expression Mode of Expression Verbal Activity Components Generative naming Additional Explanation: Activity Given a category, pt named 1 item IND, increasing to 10 given max verbal and visual cues Level of Assistance Maximal prompting Cue/Prompt Type Verbal;Visual Cue/Prompt Intensity Maximum Orientation Activity Component(s) Self/Autobiographical;Place;Time;Situation/Etiology/Injury Additional Explanation: Activity Pt oriented to self, month IND. Disoriented to year, ROSANNA, date, general/specific place, and situation Level of Assistance Maximal prompting Cue/Prompt Type Verbal Cue/Prompt Intensity Maximum Memory Memory Skill(s) [specify if applicable; eg, STM, LTM] bed bug exterminator Task Employed Recognizes familiar people/objects Level of Task Difficulty Basic Additional Explanation: Activity Pt recalled 2/5 children's names IND, 5/5 with visual cues. Unable to recall 's name. Level of Assistance Moderate prompting Cue/Prompt Type Verbal;Visual Cue/Prompt Intensity Maximum Comprehension Score Comprehends Complex or Abstract Information Without Prompting or Cueing No Mode of Comprehension Auditory Understands Directions and Conversations About Daily Needs Patient understand directions and conversation about basic daily needs 50% to 74% of the time Functional [place] Measure Comprehension Moderate prompting - 3 Expression Score Expresses Complex or Abstract Information Without Prompting or Cueing No Expression Mode Vocal Expresses Basic Daily Needs and Ideas Patient expresses basic daily needs and ideas 50% to 74% of the time Functional [place] Measure Expression Moderate prompting - 3 Memory Score Recognizes, Remembers Routines, and Executes Requests Without Prompting No Remembers and Executes Requests With Prompting Patient recognizes and remembers 25% to 49% of the time, and needs prompting more than half the time Functional [place] Measure Memory Maximal prompting - 2 Patient Education:Education Documentation No documentation found. Education Comments No comments found. Goals:Encounter Goals Encounter Goals (Active) LTG - Patient will participate in ongoing diagnostic assessments to determine plan of care Start: 09/06/24 Expected End: 09/28/24 STG - Patient will participate in ongoing diagnostic assessments to determine plan of care Start: 09/06/24 Expected End: 09/28/24 Unruly Chatterjee CCC-[employer]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 GER WIRELESS * AYAKA Castillo - 09/12/2024 1:50 PM MANAGER WIRELESS Neurologic Music Therapy Session Treatment Target: Visual Attention Patient Name: Chaitanya Tena : 1945 Admit Date: 09/05/2024 Patient Diagnosis: Diagnoses that have been ruled out: None Diagnoses that are still under consideration: None Final diagnoses: Acute stroke due to thrombosis of right middle cerebral artery (HCC) (Primary) Hemiparesis affecting left side as late effect of stroke (CMS/HCC) (HCC) Other abnormalities of gait and mobility Cognitive communication deficit Other hyperlipidemia Other sleep disorders Neurogenic bowel Other neuromuscular dysfunction of bladder Diabetes mellitus due to underlying condition with hyperglycemia, without long-term current use of insulin (HCC) Primary hypertension Intracranial atherosclerosis 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 Patient was seen for a co-treatment with physical therapy to target visual attention and tracking. Patient participated in Cognitive Rehabilitation via MNT. Patient was able to complete activity with MIN assist with 40% accuracy, and verbal and visual cues. Patient Handoff completed with all needs met in care of PT. [id number]/31/24 1130 Session Information Session Date 09/12/24 Session Time In 1130 Session Time Out 1200 Session Overview Session Type Co-treat Consent For Session Provided By Other (Comment) (PT) Location Of Session 1st floor gym side room Patient Positioning For Session Seated EOM Present Upon Arrival Staff Session Description Cognitive/Neurological Domain Goals Increase ability to attend to tasks;Increase/Encourage visual attention Cognitive/Neurological Domain Observed Patient Response Increased attention to task;Increased visual attention Cognitive/Neurological Domain Patient Outcome With prompting;With auditory/tactile/visual cues Music Therapy Interventions Cognitive Musical Neglect Training (MNT) Recommendations Recommendations For Future Sessions Continue music therapy services;Co-treat with Co-treat With Physical Therapy Recommended Frequency 2-3/week Impression and Plan RecommendationsPt able to track drum to midline with hand; unable to track using eyes or head turning. Slightly [place]. Appears to have significant deficits (attention vs cognitive vs visual) even on R side, given his known severe L neglect. Able to identify familiar songs and artists as they played on speaker. AYAKA Castillo G[facility] * Thelma Cuevas, PT - 09/12/2024 9:37 AM MANAGER WIRELESS Treatment Session Note Patient Name: Chaitanya Tena Today's Date: 09/12/2024 Preferred Language: Tanzanian Assessment & Plan Assessment: PT Assessment: Pt requiring max verbal cues throughout session due to decreased attention, neglect, and possible visual field cut. Pt initially engaging in activity in which he throws munson bags at target. However, pt throwing ~10 feet farther than target. Not sure if this is an attentional vs visual vs cognitive deficit. Additionally, during music therapy pt is able to remember songs and artists while listening to music. However, pt with difficulty seeing drum even on the right non-neglected side. Pt with instances of tracking to midline with hand but unable to track drum with eyes/ head. Plan: Treatment Plan/Goals Established with Patient/Caregiver: Yes PT Frequency: 60-90 minutes per day PT Planned Treatment: Age appropriate play, Aquatic therapy, Assistive technology, Balance training, Basic activities of daily living, Bed mobility training, Body weight support treadmill training, Caregiver training, Community/Work reintegration, Compression wrapping, Desensitization program, Developmental skills training, Edema management, Electric modalities, Equipment training, Gait training, Group therapy, Home assessment/modification, Manual therapy, Mechanical modalities, Neuromuscular reeducation, Orthotic training, Pain management, Patient education, Positioning, Posture/Body mechanics training, Robotic assisted walking therapy, Spasticity Management, Seating, Stair training, Taping, Therapeutic activities, Therapeutic exercises, Thermal/Light modalities, Transfer training Duration: 3-4 weeks Subjective Pt received seated in [facility], agreeable to therapy. Pt left in room with RN present, checking blood glucose. PT getting coffee for pt after checking with RN after pt rqeuest for coffee. Pain: Pain Assessment Pain Assessment: DVPRS (09/12/2024 1100) Pain Score: 0 (09/12/2024 1100) Pain Rating Scale (DVPRS): No pain (09/12/2024 1100) Pt with no reports of pain at 9:30 session DVPRS: 0 / 10 Vital Signs: Patient Vitals for the past 12 hrs: BP MAP (mmHg) Pulse Resp SpO2 09/12/24 1127 (!) 111/58 -- (!) 102 -- -- 09/12/24 1117 (!) 104/58 -- 95 -- -- 09/12/24 0805 -- -- 77 20 95 % 09/12/24 0804 -- -- 76 -- -- 09/12/24 0730 (!) 138/57 84 -- -- -- 09/12/24 0155 -- -- 84 16 97 % 09/12/24 0145 -- -- 82 16 95 % No data found. Objective 09/12/24 0937 09/12/24 1100 General Amount of Missed Time (min) 7 Minutes -- Missed Time Reason Other (Comment) (meeting needs of previous p) -- Family/Caregiver Present No -- Time Calculation Start Time 0937 1100 Stop Time 1000 1200 Time Calculation (min) 23 min 60 min Pain Assessment Pain Assessment DVPRS DVPRS Pain Score 0 0 Pain Rating Scale (DVPRS) 0 0 Therapeutic Activity Therapeutic Activity Time Entry 15 30 Therapeutic Activity 1 transport Pt participating in activity including the following: anterior lean in sitting towards center to case picker munson bag, sit to stand with munson bag, throwing munson bag with R arm at target. targeting sit to stands, functional leans, and enjoyable activities Therapeutic Activity 2 Pt practicing sit to stands from edge of mat with no AD -- Transfers Transfer Yes Yes Transfer 1 Level of Assistance 1 Partial/Mod assistance Supervision/touching assistance Trials/Comments 1 x 10 times from EOM x 10 times from MWC, x 3 times from blue mat Transfer To/From Qqx-cy-Behxe/Xxfci-ai-Mdp Pqh-nd-Xcxwy/Hcjit-tz-Ush Assistive Devices And Adaptive Equipments -- No device Transfers 2 Technique 2 Squat pivot Squat pivot Level of Assistance 2 Partial/Mod assistance Partial/Mod assistance Trials/Comments 2 -- PT providing maximum VC for sequencing, one step commands better Transfer To/From Rakvxhyyac-fq-ppi/Wbb-ho-gwlusiflme Iyjwfaftjp-hn-gpf/Oaw-tl-akyfnyxrqo Assistive Devices And Adaptive Equipments No device No device Chair/Dao-sx-Bpfho Transfer Assistance Needed Physical assistance Physical assistance Physical Assistance Level 51%-75% 51%-75% CARE Score - Chair/Qpo-mw-Tciko Transfer 2 2 Sit to Stand Assistance Needed Physical assistance Physical assistance Physical Assistance Level 26%-50% 25% or less Comment no device no device CARE Score - Sit to Stand 3 3 Balance/Neuromuscular Re-Education Neuromuscular Re-Education Time Entry 8 15 Activity Component(s) 1 Static;Standing Dynamic;Sitting;Standing;Dual Tasking (specify) Assistive Devices And Adaptive Equipments No device No device Balance/Neuromuscular Re-Education Activity 1 standing x 1 minute after each stand with touching A - partial A edge of mat sitting, using mallet from MT to sit and hit drum anterior and to R. Pt practicing reaching anteriorly and to the center in addition to OH while listening to choice music. Balance/Neuromuscular Re-Education Activity 2 -- Pt standing with touchin A while utilizing mallet to hit drum with MT. Pt with one instance of leaning forward to try to hit chair. Wheel 50 Feet with Two Turns Assistance Needed -- Physical assistance Physical Assistance Level -- Total assistance CARE Score - Wheel 50 Feet with Two Turns -- 1 Type of Wheelchair/Scooter -- Manual Wheel 150 Feet Assistance Needed -- Physical assistance Physical Assistance Level -- Total assistance CARE Score - Wheel 150 Feet -- 1 Type of Wheelchair/Scooter -- Manual PT Modalities Time Entry E-Stim (Attended) Time Entry -- 15 Modalities Modality Activity -- Yes Modality Activity 1 Modality Activity 1 -- Electrical stimulation, attended Level Of Assistance 1 -- Dependent Modality Comment 1 -- PT donning eleectrodes to L quad and L PF, donned during therapy in order to provide stimulation to try to improve attention to L side. Intensity 30-40, 250 pulse width, 45 frequency PT Assessment PT Assessment Pt tolerates 30 min session well. Pt requiring max verbal cues throughout session due to decreased attention, neglect, and possible visual field cut. Pt initially engaging in activity in which he throws munson bags at target. However, pt throwing ~10 feet farther than target. Not sure if this is an attentional vs visual vs cognitive deficit. Additionally, during music therapy pt is able to remember songs and artists while listening to music. However, pt with difficulty seeing drum even on the right non-neglected side. Pt with instances of tracking to midline with hand but unable to track drum with eyes/ head. Patient Education: Education Documentation No documentation found. Education Comments No comments found. Goals: Encounter Goals Encounter Goals (Active) Pt will perform all bed mobility independently (Progressing) Start: 09/06/24 Expected End: 09/27/24 Goal Note Continuing to require substantial A LTG: Pt will ambulate > 150 ft with SPV and LRAD (Progressing) Start: 09/06/24 Expected End: 09/27/24 Goal Note Pt ambulates 50 feet on Tuesday 09/11 LTG: Pt will improve BBS to 36/56 to indicate decreased risk for falls (Progressing) Start: 09/06/24 Expected End: 09/27/24 Goal Note 09/12: scores 7/56 STG: Pt will improve BBS to >13/56 to indicate decreased risk for falls (IE5/56, MDC 6.9 pts) (Progressing) Start: 09/06/24 Expected End: 09/20/24 Goal Note 09/12: scores 7/56 Within 2 weeks of starting therapy, the patient and/or family/caregiver will demonstrate independence and be compliant in a written HEP in order to maximize gains made during therapy. (Progressing) Start: 09/06/24 Expected End: 09/27/24 Goal Note Continuing to assess LTG: Pt will perform stand step transfers with set-up assist and LRAD (Progressing) Start: 09/06/24 Expected End: 09/27/24 Goal Note Pt currently requiring substantial A without AD STG: Pt will perform stand step transfers with touch A and LRAD (Progressing) Start: 09/06/24 Expected End: 09/20/24 Goal Note Pt currently requiring substantial A without AD Encounter Goals (Resolved) STG: Assess gait as appropriate (Completed) Start: 09/06/24 Expected End: 09/13/24 Resolved: 09/12/24 Goal Note Gait with RW and 2 POH Thelma Cuevas, PT [facility]ER [facility] * Derrell Davis OT - 09/12/2024 8:00 AM MANAGER WIRELESS Treatment Session Note Patient Name: Chaitanya Tena Today's Date: 09/12/2024 Preferred Language: Tanzanian Assessment & Plan Assessment: OT Assessment: pt showed improved assitance during self care task. Pt demo increased retropulsion during thetransfer and req cues to attend ot task on right side d/t visual defcits Plan: Treatment Plan/Goals Established with Patient/Caregiver: Yes Treatment Interventions: ADL retraining, Cognitive reorientation, Aquatic therapy, Compensatory technique education, Endurance training, Equipment evaluation/education, Functional transfer training, Fine motor coordination activities, Neuromuscular reeducation, Orthotic/Orthotic management, Patient/family training, Positioning, UE strengthening/ROM, Visual perceptual retraining OT Plan: Skilled OT OT Frequency: 5-7 times per week OT Planned Treatments: Work simplification, Discharge, Activities of Daily Living, Aquatics, Balance training, Caregiver training, Casting, Cognitive training, Coordination, Developmental skills training, Discharge/Discontinue OT treatment, Dry needling, Edema managment, Electric modalities, Energy conservation training, Equipment assessment, Equipment training, Group therapy, Home program, Joint protection, Manual therapy, Mobility training, Neuromuscular reeducation, Orthotic, Pain management, Patient education, Prevocational training, Safety education, Seating/Positioning, Sensory integration, Spasticity Managment, Splinting, Taping, Therapeutic activities, Therapeutic exercises, Thermal modalities, Visual and perceptual training OT Duration: 3-4 weeks Subjective Pain: Pain Assessment Pain Assessment: DVPRS (09/12/2024799) Pain Score: 0 (09/12/2024799) Pain Rating Scale (DVPRS): No pain (09/12/2024799) Vital Signs: Patient Vitals for the past 12 hrs: BP MAP (mmHg) Pulse Resp SpO2 09/12/24 1127 (!) 111/58 -- (!) 102 -- -- 09/12/24 1117 (!) 104/58 -- 95 -- -- 09/12/24 0805 -- -- 77 20 95 % 09/12/24 0804 -- -- 76 -- -- 09/12/24 0730 (!) 138/57 84 -- -- -- No data found. Objective 09/12/24 0800 Time Calculation Start Time 0800 Stop Time 0930 Time Calculation (min) 90 min Pain Assessment Pain Assessment DVPRS Pain Score 0 Pain Rating Scale (DVPRS) 0 Arousal/Consciousness Facilitation Attention;Arousal Sensory Route Tactile: Touch, rub, poke;Vestibular;Motor ADL Self Care/Home Management (ADLs) Time Entry 50 UE Dressing Activity Component(s) Short sleeve shirt LE Dressing Activity Component(s) Pants ADL Comments participated in UB and LB dressing and eating Upper Body Dressing Dressing Location/Position In bed Assistive Devices And Adaptive Equipments Height adjustment feature of hospital bed Level of Assistance Partial/Mod assistance Upper Body Dressing Assistance Needed Physical assistance Physical Assistance Level 76% or more CARE Score - Upper Body Dressing 2 Lower Body Dressing Dressing Location/Position In bed Level of Assistance Dependent Lower Body Dressing Assistance Needed Physical assistance Physical Assistance Level 76% or more CARE Score - Lower Body Dressing 2 Footwear Dressing Activity Component(s) Socks Dressing Location/Position In bed Level of Assistance Dependent Putting On/Taking Off Footwear Assistance Needed Physical assistance Physical Assistance Level Total assistance CARE Score - Putting On/Taking Off Footwear 1 Eating Activity Component(s) Set up/Arrange food;Use standard utensils;Scooping food;Food to mouth Level of Assistance Substantial/Max assistance Comment needed assitance d/t visual impairement; trialed diffrent positions for utensils to promote visiblity; Eating Assistance Needed Physical assistance Physical Assistance Level 76% or more CARE Score - Eating 2 Toileting Activity Component(s) Managing clothing before;Managing clothing after;Managing incontinence hygiene/products;Perineal hygiene, front;Perineal hygiene, back Level of Assistance Dependent Comment needed mulitmodal cues for Toileting Position/Set Up In bed Toileting Hygiene Assistance Needed Physical assistance Physical Assistance Level 76% or more CARE Score - Toileting Hygiene 2 Bed Mobility Bed Mobility Yes Bed Mobility 1 Level of Assistance 1 Partial/Mod assistance Bed Mobility Comments 1 req cues to assist with BLE, req cues for safety while sitting EOM Bed Mobility To/From Roll left/right;Roll lying on back to left;Roll lying on back to right;Roll lying to left/Return to back;Roll lying to right/Return to back;Sitting EOB to supine Assistive Devices And Adaptive Equipments Bed rail;Height adjustment feature of hospital bed;Head of bed elevated Transfers Transfer Yes Transfer 1 Technique 1 Stand pivot Level of Assistance 1 Substantial/Max assistance Trials/Comments 1 X2demo retopulsion during the transfer Transfer To/From Wheelchair;Chair Assistive Devices And Adaptive Equipments No device Therapeutic Procedures Time Entry Neuromuscular Re-Education Time Entry 40 Balance/Neuromuscular Re-Education Balance/Neuromuscular Re-Education Activity 1 sitting EOM, forward excursions to limit retropulsion while seated Position 1 Seated Balance/Neuromuscular Re-Education Activity 2 Pt with pusher setup during lateral reaching activity - encouraged reaching out of MARIO towards the R; req multimodal cues d/t vision impairement and possible L sided neglect. Position 2 Seated OT Assessment OT Assessment pt showed improved assitance during self care task. Pt demo increased retropulsion during thetransfer and req cues to attend ot task on right side d/t visual defcits Patient Education: Education Documentation No documentation found. Education Comments No comments found. Goals: Encounter Goals Encounter Goals (Active) Patient will perform grooming with minimum assist for improved independence with ADLs (Progressing) Start: 09/06/24 Expected End: 09/27/24 Patient will perform feeding with minimum assist for improved independence with ADLs (Progressing) Start: 09/06/24 Expected End: 09/27/24 Patient will perform upper body dressing with minimum assist to improve independence with dressing. (Progressing) Start: 09/06/24 Expected End: 09/27/24 Patient will perform lower body dressing with moderate assist to improve independence with dressing. (Progressing) Start: 09/06/24 Expected End: 09/27/24 Pt and/or caregiver(s) will have all appropriate DME, recommendations, or completed prescriptions to maximize pt's safety and independence at discharge. (Progressing) Start: 09/06/24 Expected End: 09/27/24 Patient and/or caregivers will verbalize understanding of home program including safety tips, equipment instructions, and home exercises. (Progressing) Start: 09/06/24 Expected End: 09/27/24 Patient will participate in forced use activities using the affected upper extremity with minimum assistance to inhibit abnormal movement patterns. (Progressing) Start: 09/06/24 Expected End: 09/27/24 Patient will incoporate their affected upper extremity with minimal assist/cues during functional task performance. (Progressing) Start: 09/06/24 Expected End: 09/27/24 Patient assessment the need for fabrication and wearing of left UE resting for spasticity management (Progressing) Start: 09/06/24 Expected End: 09/27/24 Patient will participate in seating and mobility trials to improve posture, reduce tone, and prevent secondary complications. (Progressing) Start: 09/06/24 Expected End: 09/27/24 Derrell Davis OT [facility] * Bernadette Norton MD - 09/11/2024 9:02 PM MANAGER WIRELESS Physical Medicine & Rehabilitation Daily Progress Note Code status: Full Code Current diet: Adult Diet Dysphagia; 0 - Thin Liquids; 5 - Minced & Moist (Dysphagia Ground); 1:1 Feeding Isolation: No active isolations Allergies: Patient has no known allergies. Subjective: No events report last night by nursing. Pain is controlled Objective: Sleep hours logged Nighttime Sleep Hours: 11 hrs Last Bowel Movement: Last BM Date: 09/07/24 Stool Color: Brown Stool Appearance: Soft Stool Amount: Smear Bowel Incontinence: Yes Bowel Elimination Assistance Level: Assistive equipment and person Labs Lab Results Component Value Date WBC 8.21 09/11/2024 Hgb 11.5 (L) 09/11/2024 Hct 35.9 (L) 09/11/2024 Plt Count 312 09/11/2024 Cholesterol 149 08/19/2024 Triglycerides 83 08/19/2024 HDL Cholesterol 46.4 08/19/2024 ALT 16 09/11/2024 AST 23 09/11/2024 Sodium Lvl 141 09/11/2024 Potassium Lvl 3.9 09/11/2024 Chloride Lvl 104 09/11/2024 Creatinine Lvl 0.97 09/11/2024 BUN 18 09/11/2024 CO2 Lvl 28.1 09/11/2024 INR 0.95 08/19/2024 Hgb A1C 9.40 (H) 08/19/2024 Vitals Vitals: 09/11/24 1949 09/11/24 1950 09/11/24202809/11/242038 BP: 113/64 Pulse: (!) 44 (!) 102 (!) 108 Resp: 18 18 Temp: SpO2: 97% 95% 98% 24 Hr Tmax: Temp (24hrs), Av.8 ?C (98.2 ?F), Min:36.7 ?C (98.1 ?F), Max:36.8 ?C (98.3 ?F) Latest Weight: 81.5 kg (179 lb 10.8 oz) Intake & Output Intake/Output Summary (Last 24 hours) at 09/11/20242101 Last data filed at 09/11/2024 0800 Gross per 24 hour Intake 237 ml Output -- Net 237 ml I/O last 3 completed shifts: In: 237 (2.9 mL/kg) [P.O.:237] Out: - (0 mL/kg) Weight: 81.5 kg No intake/output data recorded. Medications amLODIPine, 10 mg, Oral, Daily aspirin, 324 mg, Nasogastric, Daily atorvastatin, 80 mg, Oral, Daily Boost Glucose Control, 1 Container, Oral, TID with meals caffeine, 100 mg, Oral, Daily Docusate Sodium, 100 mg, Per G Tube, q12h heparin, 5,000 Units, Subcutaneous, q8h influenza vaccine, 0.5 mL, Intramuscular, During hospitalization insulin glargine, 30 Units, Subcutaneous, Every evening insulin lispro, 8 Units, Subcutaneous, TID with meals ipratropium-albuterol, 3 mL, Nebulization, q6h losartan, 75 mg, Oral, Daily melatonin, 3 mg, Per G Tube, Nightly mirtazapine, 7.5 mg, Oral, Nightly modafinil, 100 mg, Oral, Daily polyethylene glycol (PEG) 3350, 17 g, Per G Tube, q12h sennosides, 1 tablet, Oral, Nightly PRN medications: bisacodyl, dextrose, glucagon, insulin lispro, levETIRAcetam, magnesium hydroxide, midazolam, sodium chloride Physical Exam:General: in no distress HEENT: moist mucous membranes CV: no peripheral cyanosis Pulm: normal respiratory effort GI: non-distended abdomen Derm: no rashes or ulcers in areas examed Psych: calm, cooperative DIAGNOSES & PROBLEMSPrincipal Problem: 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 male with hx of prior ischemic stroke w/ no residual deficits, HTN, DM2, lung cancer (last treatment 2021) who presented to [facility] on 08/19 w/ left sided weakness and neglect, found to have R MCA stroke s/p TNK and endovascular thrombectomy on 08/19 with subsequent improvement in strength and mentation. Mild hemorrhagic conversion. Acute care course c/b CAP s/p completion of abx on 08/28/24 Right middle cerebral artery strokeStable neurologic status; admission imaging did show some minimal hemorrhagic conversion Continued on dual antiplatelet therapy for 21 days followed by aspirin monotherapy. Continued on atorvastatin. Left hemiparesisOngoing work on neuromuscular education Cognitive deficitsSevere; arousal is the most problematic at this time Continued on caffeine and modafinil; likely increased modafinil in the coming days Gait abnormalityOngoing work on independence in mobility with physical and Occupational Therapy DysarthriaOngoing work on articulation strategies speech-language pathology HypertensionBlood pressure is controlled on current dosages of amlodipine and losartan HyperglycemiaContinued on long-acting glargine as well as Premeal insulin Blood glucoses are still variable; ongoing adjustments from internal medicine Sleep dysfunctionContinue scheduled melatonin and mirtazapine Neurogenic bowelMonitor for constipation on docusate, senna, and MiraLAX Neurogenic bladderVoiding spontaneously; work on continence through time voids MalnutritionDietitian following closely; continued on diabetic supplements DVT prophylaxisContinue on subcutaneous heparin CODE STATUS: Full Disposition:To home with assistance from family within 2 weeks Follow-up:[place] [facility] within 2 weeks of discharge Primary care provider within 2 weeks of discharge Miguel Norton, [id number] * Deborah Li, PhD - 09/11/2024 4:00 PM MANAGER WIRELESS Psychology/Neuropsychology Interim Follow-Up Patient Name: Chaitanya Tena Age: 78 y.o. : 1945 Gender: male Attending Physician: Bernadette Norton MD Attending Neuropsychologist: Deborah Li, Ph.D. Admitted: 09/05/2024 Date: 09/11/24 Time Spent with Patient: 40 Minutes Purpose: Patient is referred for a neuropsychological consultation as part of their comprehensive rehabilitation program in order to evaluate cognitive, behavioral and emotional functioning. Patient was seen for follow-up. Mental Status: Position: in wheelchair with daughter at bedside Mental Status: Partially oriented - only to place and etiology Level of Arousal: Normal Mood: Normal Affect: Consistent, Mood-congruent Behavior: Reduced initiation Appropriate and Cooperative/participatory Thought Process: Decreased judgment Awareness - Fair , not formally assessed Adjustment: Appropriate; denies current emotional distress Assessment/Intervention: Orientation and Cognitive Functioning: Orientation Log (O-LOG) Total Score: 9 City: [address]: 2 Hospital Name: 1 Month: 0 Date: 0 Year: 1 Day of the Week: 0 Clock Time: 1 Etiology/Event: 1 Pathology Deficits 1 Impressions/Plan: Cognition: Areas of Cognitive Impairment: Acquired knowledge Attention Awareness deficits Executive functioning Language Memory Planning and problem solving Processing speed Reasoning and judgment Visual spatial Significant L VISUAL NEGLECT Psych: No psychological/emotional concerns at this time. Diagnostic Impression: R41.841 Cognitive Communication Deficit; R41.89 Other symptoms and signs involving cognitive functions and awareness; F43.0 Adjustment Disorder Recommendations Recommendations Continued Re-Orientation to time, place, deficits Plan Plan Monitoring cognition, behavior, mood Frequency of Contacts 2-3 times weekly Patient Goals Able to Obtain Patient's Self-Identified Rehabilitation Goals Yes Information Obtained From Obtained from family/caregiver Patient's Self-Identified Rehabilitation Goals Return home to family, walk dog, ride bike daily Able to Obtain Patient's Self-Identified Short-Term Pain Goal Not applicable Deborah Li, PhD GER [facility] GER [facility] * LEESA Welch - 09/11/2024 2:00 PM MANAGER WIRELESS Speech-Language Pathology Encounter Note Patient Name: Chaitanya Tena Today's Date: 09/11/2024 Missed Treatment Time and Reason Missed 60 min session for speech tx. Treatment added after pt receiving his printed schedule so pt was unaware of appt. Patient not present in room. [employer]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 spent 20-30 min attempting to locate pt outside but unable to find pt outside. 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 Norton Today's Date: 09/11/2024 Preferred Language: Tanzanian Impressions: Patient's chart reviewed to assess appropriateness for NMT services. Patient will benefit from skilled NMT intervention to address areas in the sensorimotor and cognitive domains. Appropriate NMT techniques which may benefit this patient include TIMP, PSE, and MNT. Services to be initiated upon music therapist availability. AYAKA Castillo GER WIRELESS * Rosemarie Meyer MD - 09/11/2024 11:19 AM MANAGER WIRELESS [facility] [place] Hospitalist Consult Progress Note Subjective No overnight issues Patient is having breakfast Patient is on 1:1 feedings Objective Vitals: 09/11/24 0210 09/11/24 0220 09/11/24 0647 09/11/24 0841 BP: 109/71 115/68 Pulse: 80 85 (!) 101 100 Resp: 18 18 18 Temp: 36.7 ?C (98.1 ?F) SpO2: 95% 97% 94% Physical exam Patient is not in acute distress HEENT - Oral mucosa moist Pupils equally reacting to light bilaterally No jugular venous distention neck is supple No obvious lymphadenopathy CVS- s2 s2 normal , No murmur RS-decreased air entry bilaterally PA-Soft and Non tender , Bowel sounds present , No guarding or rigidity 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 able to communicate, left-sided weakness Musculoskeletal -Normal range of motion Extremities- minimal left leg swelling Skin - warm and No rashes Current Active Medications amLODIPine, 10 mg, Oral, Daily aspirin, 324 mg, Nasogastric, Daily atorvastatin, 80 mg, Oral, Daily Boost Glucose Control, 1 Container, Oral, TID with meals caffeine, 100 mg, Oral, Daily Docusate Sodium, 100 mg, Per G Tube, q12h heparin, 5,000 Units, Subcutaneous, q8h influenza vaccine, 0.5 mL, Intramuscular, During hospitalization insulin glargine, 30 Units, Subcutaneous, Every evening insulin lispro, 8 Units, Subcutaneous, TID with meals ipratropium-albuterol, 3 mL, Nebulization, q6h losartan, 75 mg, Oral, Daily melatonin, 3 mg, Per G Tube, Nightly mirtazapine, 7.5 mg, Oral, Nightly modafinil, 100 mg, Oral, Daily polyethylene glycol (PEG) 3350, 17 g, Per G Tube, q12h sennosides, 1 tablet, Oral, Nightly PRN medications: bisacodyl, dextrose, glucagon, insulin lispro, levETIRAcetam, magnesium hydroxide, midazolam, sodium chloride Imaging:CT BRAIN WO IV CONTRAST Narrative: Radiation Dose CTDIVOL = 51.2 (mGy): DLP = 956 (mGy-cm) PROCEDURE INFORMATION:Exam: CT Head Without Contrast Exam date and time: 09/08/2024 12:25 PM Age: 78 years old Clinical indication: Cognitive changel subacute R mca stroke TECHNIQUE:Imaging protocol: Computed tomography of the head without contrast. Radiation optimization: All CT scans at this facility use at least one of these dose optimization techniques: automated exposure control; mA and/or kV adjustment per patient size (includes targeted exams where dose is matched to clinical indication); or iterative reconstruction. COMPARISON:CT BRAIN WO IV CONTRAST 09/06/2024 11:42 AM RADIATION DOSE METRICS:CTDI volume (mGy): 51.2 Total DLP (mGy-cm): 956 FINDINGS:Brain: Unchanged left parieto-occipital encephalomalacia. Redemonstrated recent right MCA distribution infarct with unchanged small regions of gyriform hyperdensity within the infarct concerning for petechial hemorrhage versus early cortical laminar necrosis. No evidence of new large territorial infarct. No new intracranial hemorrhage. No new mass effect. No midline shift. Cerebral ventricles: Unchanged ex vacuo dilatation of the left lateral ventricle. No evidence of acute hydrocephalus. Paranasal sinuses: Mucosal retention cyst in the left maxillary sinus fluid Mastoid air cells: Non-specific patchy opacification of the mastoid air cells, right worse than left. Bones: Unremarkable. No acute fracture. Soft tissues: Impression: Redemonstrated recent right MCA distribution infarct with unchanged small regions of petechial hemorrhage versus early cortical laminar necrosis. ELECTRONICALLY SIGNED BY SOLEDAD GARCIA MD ON 09/08/2024 AT 13:28. Lab ResultsResults from last 7 days Lab Units 09/11/24 0620 09/08/24 0557 09/06/24 0450 WBC 10*3/uL 8.21 8.93 11.57* HEMOGLOBIN g/dL 11.5* 11.4* 12.3* HEMATOCRIT % 35.9* 35.1* 40.3 PLATELETS 10*3/uL 312 362 366 Results from last 7 daysLab Units 09/11/24 0814 09/11/24 0620 09/08/24 0757 09/08/24 0557 09/05/24 0837 09/05/24 0239 SODIUM mEq/L -- 141 -- 141 -- 142 POTASSIUM mEq/L -- 3.9 -- 3.9 -- 4.1 CHLORIDE mEq/L -- 104 -- 103 -- 105 CO2 mEq/L -- 28.1 -- 30.6 -- 28.4 BUN mg/dL -- 18 -- 27* -- 27* CREATININE mg/dL -- 0.97 -- 1.01 -- 1.08 GLUCOSE mg/dL -- 76 -- 107* -- 138* POC GLUCOSE mg/dL 89 -- < > -- < > -- CALCIUM mg/dL -- 9.5 -- 9.4 -- 9.4 < > = values in this interval not displayed. Micro:Susceptibility data from last 90 days. 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 Hospital course was complicated by pneumonia which was treated with antibiotics. Antibiotics were completed on 08/28. Now patient is transferred here for comprehensive rehab. Acute CVA-Right MCA CVA on 08/19 status post TNK and endovascular thrombectomy on 08/19 -MRI consistent with right MCA infarct DAPT with aspirin and Plavix for 21 days and aspirin lifelong thereafter -Per neurology etiology of stroke was embolic stroke of undetermined source -Comprehensive rehab per primary team -ASA and statin Hypoxic respiratory failure-Patient was recently treated for pneumonia, completed antibiotic on 08/28 -X-ray chest- no new infiltrate -Continue to monitor clinical course -ultrasound of extremities pending read Dysphagia-Continue dysphagia diet with 1:1 feeding Hypertension-Continue amlodipine 10 mg p.o. daily, losartan 75 mg daily -Monitor blood pressure Type 2 diabetes-Hemoglobin A1c is 9.4 -Continue Lantus 30 units and Lispro TID 8 units - with meal -patient is 1:1 Feed -continue SSI -will closely monitor BG Adult Diet Dysphagia; 0 - Thin Liquids; 5 - Minced & Moist (Dysphagia Ground); 1:1 Feeding VTE prophylaxis: heparin - 5000 units/mL Disposition: Per primary team Hospitalist service is consulting service, please use secure chat for any questions or concerns Thank you for consulting [place] hospitalist Rosemarie Meyer MD Mortgage Loan Processing Clerk, Hospitalist Division [facility] [place] GER WIRELESS * Thelma Cuevas, PT - 09/11/2024 11:00 AM MANAGER WIRELESS Treatment Session Note Patient Name: Chaitanya Tena Today's Date: 09/12/2024 Preferred Language: Tanzanian Assessment & Plan Assessment: PT Assessment: Treatment focuse on functional mobility and reorientation to midline. PT also initiates gait but stops due to pt flexed posture and extreme lateral lean. Pt demonstrates severe R neglect and also potential visual deficits with items directly in front of him vs decreased attention due to not being able to locate MWC when right in front of him. Throughout sesssion, pt tries to lie down but is redirected with short VC. Plan: Treatment Plan/Goals Established with Patient/Caregiver: Yes PT Frequency: 60-90 minutes per day PT Planned Treatment: Age appropriate play, Aquatic therapy, Assistive technology, Balance training, Basic activities of daily living, Bed mobility training, Body weight support treadmill training, Caregiver training, Community/Work reintegration, Compression wrapping, Desensitization program, Developmental skills training, Edema management, Electric modalities, Equipment training, Gait training, Group therapy, Home assessment/modification, Manual therapy, Mechanical modalities, Neuromuscular reeducation, Orthotic training, Pain management, Patient education, Positioning, Posture/Body mechanics training, Robotic assisted walking therapy, Spasticity Management, Seating, Stair training, Taping, Therapeutic activities, Therapeutic exercises, Thermal/Light modalities, Transfer training Duration: 3-4 weeks Subjective Pt received in 3 C common area in [facility], agreeable to therapy. Pt left in MW in 3C common area, agreeable to staying in common area. Pain: Pain Assessment Pain Assessment: 0-10 (09/11/20241099) Pain Score: 0 (09/11/20241099) Vital Signs: Patient Vitals for the past 12 hrs: BP MAP (mmHg) Pulse Resp SpO2 09/12/24 0155 -- -- 84 16 97 % 09/12/24 0145 -- -- 82 16 95 % 09/11/242038 -- -- (!) 108 18 98 % 09/11/242028 -- -- (!) 102 18 95 % 09/11/24 1950 -- -- (!) 44 -- 97 % 09/11/24 1949 113/64 80 95 18 97 % No data found. Objective 09/11/24 1100 Time Calculation Start Time 1100 Stop Time 1200 Time Calculation (min) 60 min Pain Assessment Pain Assessment 0-10 Pain Score 0 Therapeutic Exercise Therapeutic Exercise Time Entry 22 Therapeutic Exercise Activity 1 1 x 10 sit to stands with RW Position 1 Standing Therapeutic Exercise Activity 2 1 x 3 sit to stand with partial A and no AD Position 2 Standing Therapeutic Exercise Acitivity 3 1 x 5 sit ups from blue wedge with partial A Position 3 Supine Therapeutic Activity Therapeutic Activity Time Entry 10 Therapeutic Activity 1 transport, transfer Roll Left and Right Assistance Needed Physical assistance Physical Assistance Level 26%-50% CARE Score - Roll Left and Right 3 Lying to Sitting on Side of Bed Assistance Needed Physical assistance Physical Assistance Level 26%-50% CARE Score - Lying to Sitting on Side of Bed 3 Sit to Lying Assistance Needed Physical assistance Physical Assistance Level 26%-50% CARE Score - Sit to Lying 3 Transfers Transfer Yes Transfer 1 Technique 1 Stand step Level of Assistance 1 Partial/Mod assistance Transfer To/From Bewwmlpdmp-[id number]/Ero-fl-wjwgsuvrzg Assistive Devices And Adaptive Equipments No device Transfers 2 Level of Assistance 2 Supervision/touching assistance Trials/Comments 2 PT blocking RW, providing touching A at pt hips Transfer To/From Vzt-na-Fbtku/Mrryl-ml-Akc Assistive Devices And Adaptive Equipments Walker, front-wheeled Chair/Uwq-yu-Dkhzr Transfer Assistance Needed Physical assistance Physical Assistance Level 51%-75% CARE Score - Chair/Jkw-ef-Miasb Transfer 2 Sit to Stand Assistance Needed Physical assistance Physical Assistance Level 25% or less Comment with RW CARE Score - Sit to Stand 3 Car Transfer Reason if not Attempted Environmental limitations CARE Score - Car Transfer 10 Gait Training Gait Training Time Entry 3 Gait Training Activity Yes Gait Training Activity 1 Distance (enter in feet) 1 x 10 feet Assistive Devices And Adaptive Equipments Walker, front-wheeled Level of Assistance 1 Dependent Gait Training Activity 1 Comment Pt demonstrating leaning towards L stongly and significantly decreased step length B. PT at hips to assist with weight shift and PT tech guiding RW. PT stops gait due to excessive lean and flexion of pt while walking. Surface And Method Over ground;Indoor;Even surface Walk 10 Feet Assistance Needed Physical assistance Physical Assistance Level Total assistance Comment 2 POH, with RW CARE Score - Walk 10 Feet 1 Walk 50 Feet with Two Turns Reason if not Attempted Safety concerns CARE Score - Walk 50 Feet with Two Turns 88 Walk 150 Feet Reason if not Attempted Safety concerns CARE Score - Walk 150 Feet 88 Walking 10 Feet on Uneven Surfaces Reason if not Attempted Safety concerns CARE Score - Walking 10 Feet on Uneven Surfaces 88 1 Step (Curb) Reason if not Attempted Safety concerns CARE Score - 1 Step (Curb) 88 4 Steps Reason if not Attempted Safety concerns CARE Score - 4 Steps 88 12 Steps Reason if not Attempted Safety concerns CARE Score - 12 Steps 88 Balance/Neuromuscular Re-Education Neuromuscular Re-Education Time Entry 25 Activity Component(s) 1 Sitting;Static;Standing Assistive Devices And Adaptive Equipments No device Balance/Neuromuscular Re-Education Activity 1 edge of mat balancing, SVN - partial A due to leaning backwards Balance/Neuromuscular Re-Education Activity 2 standing balance in front of mirror with partial A (pt not attending to mirror even with mirror on R side. Pt with significant deficits in visual attention and strong lean in standing) Picking Up Object Reason if not Attempted Safety concerns CARE Score - Picking Up Object 88 Wheel 50 Feet with Two Turns Assistance Needed Physical assistance Physical Assistance Level Total assistance CARE Score - Wheel 50 Feet with Two Turns 1 Type of Wheelchair/Scooter Manual Wheel 150 Feet Assistance Needed Physical assistance Physical Assistance Level Total assistance CARE Score - Wheel 150 Feet 1 Type of Wheelchair/Scooter Manual PT Assessment PT Assessment Treatment focuse on functional mobility and reorientation to midline. PT also initiates gait but stops due to pt flexed posture and extreme lateral lean. Pt demonstrates severe R neglect and also potential visual deficits with items directly in front of him vs decreased attention due to not being able to locate MWC when right in front of him. Throughout sesssion, pt tries to lie down but is redirected with short VC. Outcome Measures: [place] Balance Scale 1. Sitting to Standing: Needs minimal aid to stand or stabilize 2. Standing Unsupported: Unable to stand 30 seconds unsupported 3. Sitting with Back Unsupported but Feet Supported on Floor or on a Stool: Able to sit 2 minutes under supervision 4. Standing to Sitting: Uses back of legs against chair to control descent 5. Transfers: Needs one person to assist 6. Standing Unsupported with Eyes Closed: Needs help to keep from falling 7. Standing Unsupported with Feet Together: Needs help to attain position and unable to hold for 15 seconds 8. Reach Forward with Outstretched Arm While Standing: Loses balance while trying/requires external support 9. Desktop Publishing Specialist Object from Floor from a Standing Position: Unable to try/needs assist to keep from losing balance or falling 10. Turning to Look Behind Over Left and Right Shoulders While Standing: Needs assist to keep from losing balance or falling 11. Turn 360 Degrees: Needs assistance while turning 12. Place Alternate Foot on Step or Stool While Standing Unsupported: Needs assistance to keep from falling/unable to try 13. Standing Unsupported One Foot in Front: Loses balance while stepping or standing 14. Standing on One Leg: Unable to try needs assist to prevent fall [place] Balance Score: 7 6 min walk 6 min walk: 0 10 meter walk (fast and self-selected) 10 meter walk (fast and self-selected): 0 Patient Education:Education Documentation No documentation found. Education Comments No comments found. Goals:Encounter Goals Encounter Goals (Active) Pt will perform all bed mobility independently (Progressing) Start: 09/06/24 Expected End: 09/27/24 Goal Note Continuing to require substantial A LTG: Pt will ambulate > 150 ft with SPV and LRAD (Progressing) Start: 09/06/24 Expected End: 09/27/24 Goal Note Pt ambulates 50 feet on Tuesday 09/11 LTG: Pt will improve BBS to 36/56 to indicate decreased risk for falls (Progressing) Start: 09/06/24 Expected End: 09/27/24 Goal Note 09/12: scores 7/56 STG: Pt will improve BBS to >13/56 to indicate decreased risk for falls (IE5/56, MDC 6.9 pts) (Progressing) Start: 09/06/24 Expected End: 09/20/24 Goal Note 09/12: scores 7/56 Within 2 weeks of starting therapy, the patient and/or family/caregiver will demonstrate independence and be compliant in a written HEP in order to maximize gains made during therapy. (Progressing) Start: 09/06/24 Expected End: 09/27/24 Goal Note Continuing to assess LTG: Pt will perform stand step transfers with set-up assist and LRAD (Progressing) Start: 09/06/24 Expected End: 09/27/24 Goal Note Pt currently requiring substantial A without AD STG: Pt will perform stand step transfers with touch A and LRAD (Progressing) Start: 09/06/24 Expected End: 09/20/24 Goal Note Pt currently requiring substantial A without AD Encounter Goals (Resolved) STG: Assess gait as appropriate (Completed) Start: 09/06/24 Expected End: 09/13/24 Resolved: 09/12/24 Goal Note Gait with RW and 2 POH Thelma Cuevas, PT GER WIRELESS * Derrell Davis, OT - 09/11/2024 9:00 AM MANAGER WIRELESS Treatment Session Note Patient Name: Chaitanya Tena Today's Date: 09/11/2024 Preferred Language: Tanzanian Assessment & Plan Assessment: OT Assessment: (P) Pt showed improved participation. req cues for safety throughout the session Plan: Treatment Plan/Goals Established with Patient/Caregiver: Yes Treatment Interventions: ADL retraining, Cognitive reorientation, Aquatic therapy, Compensatory technique education, Endurance training, Equipment evaluation/education, Functional transfer training, Fine motor coordination activities, Neuromuscular reeducation, Orthotic/Orthotic management, Patient/family training, Positioning, UE strengthening/ROM, Visual perceptual retraining OT Plan: Skilled OT OT Frequency: 5-7 times per week OT Planned Treatments: Work simplification, Discharge, Activities of Daily Living, Aquatics, Balance training, Caregiver training, Casting, Cognitive training, Coordination, Developmental skills training, Discharge/Discontinue OT treatment, Dry needling, Edema managment, Electric modalities, Energy conservation training, Equipment assessment, Equipment training, Group therapy, Home program, Joint protection, Manual therapy, Mobility training, Neuromuscular reeducation, Orthotic, Pain management, Patient education, Prevocational training, Safety education, Seating/Positioning, Sensory integration, Spasticity Managment, Splinting, Taping, Therapeutic activities, Therapeutic exercises, Thermal modalities, Visual and perceptual training OT Duration: 3-4 weeks Subjective Pain: DVRS- 0 Vital Signs: Patient Vitals for the past 12 hrs: BP MAP (mmHg) Pulse Resp SpO2 09/11/24 1345 (!) 118/55 76 (!) 107 18 96 % 09/11/24 0841 115/68 -- 100 -- -- 09/11/24 0647 109/71 84 (!) 101 18 94 % No data found. Objective 09/11/24 0900Time Calculation Start Time 0900 Stop Time 1000 Time Calculation (min) 60 min Pain Assessment Pain Assessment 0-10 Pain Score 0 Critical-Care Pain Observation Tool Intubated? No Facial Expression 0 Body Movements 0 Vocalization (Extubated Patients) 0 Muscle Tension 1 Critical-Care Pain Observation Score 1 Shower/Bathe Self Assistance Needed Physical assistance Physical Assistance Level Total assistance CARE Score - Shower/Bathe Self 1 Oral Hygiene Assistance Needed Physical assistance Physical Assistance Level 76% or more CARE Score - Oral Hygiene 2 Upper Body Dressing Assistance Needed Physical assistance Physical Assistance Level Total assistance CARE Score - Upper Body Dressing 1 Lower Body Dressing Assistance Needed Physical assistance Physical Assistance Level Total assistance CARE Score - Lower Body Dressing 1 Putting On/Taking Off Footwear Assistance Needed Physical assistance Physical Assistance Level Total assistance CARE Score - Putting On/Taking Off Footwear 1 Eating Assistance Needed Physical assistance Physical Assistance Level 76% or more CARE Score - Eating 2 Toileting Hygiene Assistance Needed Physical assistance Physical Assistance Level Total assistance CARE Score - Toileting Hygiene 1 Toilet Transfer Assistance Needed Physical assistance Physical Assistance Level 76% or more CARE Score - Toilet Transfer 2 Transfer 1 Technique 1 Squat pivot Level of Assistance 1 Substantial/Max assistance Transfer To/From Mat;Wheelchair Assistive Devices And Adaptive Equipments (tactile cues to support to use arm rest) Therapeutic Procedures Time Entry Neuromuscular Re-Education Time Entry 20 Therapeutic Activity Time Entry 40 Therapeutic Exercise Time Entry 15 Therapeutic Exercise Therapeutic Exercise Activity 1 sit to stand; needed cues to mainatain poistion and balance in midline Position 1 Seated Therapeutic Activity Therapeutic Activity 1 pt particiapted in BUE stregthening and cordination activity to improve bilateral integration, req cues for visual orientation Balance/Neuromuscular Re-Education Balance/Neuromuscular Re-Education Activity 1 dynamic sitting balance activity req verbal cues to lean anteriorly to maintain midline poistion during the activity Position 1 Seated Balance/Neuromuscular Re-Education Activity 2 WB on LUE to incraese functional use of the extermity OT Assessment OT Assessment Pt showed improved participation. req cues for safety throughout the session Patient Education:Education Documentation No documentation found. Education Comments No comments found. Goals:Encounter Goals Encounter Goals (Active) Patient will perform grooming with minimum assist for improved independencewith ADLs Start: 09/06/24 Expected End: 09/27/24 Patient will perform feeding with minimum assist for improved independence with ADLs Start: 09/06/24 Expected End: 09/27/24 Patient will perform upper body dressing with minimum assist to improve independence with dressing. Start: 09/06/24 Expected End: 09/27/24 Patient will perform lower body dressing with moderate assist to improve independence with dressing. Start: 09/06/24 Expected End: 09/27/24 Pt and/or caregiver(s) will have all appropriate DME, recommendations, or completed prescriptions to maximize pt's safety and independence at discharge. Start: 09/06/24 Expected End: 09/27/24 Patient and/or caregivers will verbalize understanding of home program including safety tips, equipment instructions, and home exercises. Start: 09/06/24 Expected End: 09/27/24 Patient will participate in forced use activities using the affected upper extremity with minimum assistance to inhibit abnormal movement patterns. Start: 09/06/24 Expected End: 09/27/24 Patient will incoporate their affected upper extremity with minimal assist/cues during functional task performance. Start: 09/06/24 Expected End: 09/27/24 Patient assessment the need for fabrication and wearing of left UE resting for spasticity management Start: 09/06/24 Expected End: 09/27/24 Patient will participate in seating and mobility trials to improve posture, reduce tone, and prevent secondary complications. Start: 09/06/24 Expected End: 09/27/24 Derrell Davis OT GER WIRELESS * Derrell Davis OT - 09/11/2024 9:00 AM MANAGER WIRELESS Treatment Session Note Patient Name: Chaitanya Tena Today's Date: 09/11/2024 Preferred Language: Tanzanian Assessment & Plan Assessment: OT Assessment: Pt showed improved participation though more with unstructured activity vs structured. req cues for safety throughout the session, demo'd one instance of throwing beanbag at someone in the gym but redirectable overall. Plan: Treatment Plan/Goals Established with Patient/Caregiver: Yes Treatment Interventions: ADL retraining, Cognitive reorientation, Aquatic therapy, Compensatory technique education, Endurance training, Equipment evaluation/education, Functional transfer training, Fine motor coordination activities, Neuromuscular reeducation, Orthotic/Orthotic management, Patient/family training, Positioning, UE strengthening/ROM, Visual perceptual retraining OT Plan: Skilled OT OT Frequency: 5-7 times per week OT Planned Treatments: Work simplification, Discharge, Activities of Daily Living, Aquatics, Balance training, Caregiver training, Casting, Cognitive training, Coordination, Developmental skills training, Discharge/Discontinue OT treatment, Dry needling, Edema managment, Electric modalities, Energy conservation training, Equipment assessment, Equipment training, Group therapy, Home program, Joint protection, Manual therapy, Mobility training, Neuromuscular reeducation, Orthotic, Pain management, Patient education, Prevocational training, Safety education, Seating/Positioning, Sensory integration, Spasticity Managment, Splinting, Taping, Therapeutic activities, Therapeutic exercises, Thermal modalities, Visual and perceptual training OT Duration: 3-4 weeks Subjective Pain: Critical-Care Pain Observation Tool Intubated?: No (09/11/2024899) Facial Expression: Relaxed, neutral (09/11/2024899) Body Movements: Absence of movements or normal position (09/11/2024899) Vocalization (Extubated Patients): Talking in normal tone or no sound (09/11/2024899) Muscle Tension: Tense, rigid (09/11/2024899) Critical-Care Pain Observation Score: 1 (09/11/2024899) Vital Signs: Patient Vitals for the past 12 hrs: BP MAP (mmHg) Pulse Resp SpO2 09/11/24 1345 (!) 118/55 76 (!) 107 18 96 % 09/11/24 0841 115/68 -- 100 -- -- 09/11/24 0647 109/71 84 (!) 101 18 94 % No data found. Objective 09/11/24 0900 Time Calculation Start Time 0900 Stop Time 1000 Time Calculation (min) 60 min Pain Assessment Pain Assessment 0-10 Pain Score 0 Critical-Care Pain Observation Tool Intubated? No Facial Expression 0 Body Movements 0 Vocalization (Extubated Patients) 0 Muscle Tension 1 Critical-Care Pain Observation Score 1 Shower/Bathe Self Assistance Needed Physical assistance Physical Assistance Level Total assistance CARE Score - Shower/Bathe Self 1 Oral Hygiene Assistance Needed Physical assistance Physical Assistance Level 76% or more CARE Score - Oral Hygiene 2 Upper Body Dressing Assistance Needed Physical assistance Physical Assistance Level Total assistance CARE Score - Upper Body Dressing 1 Lower Body Dressing Assistance Needed Physical assistance Physical Assistance Level Total assistance CARE Score - Lower Body Dressing 1 Putting On/Taking Off Footwear Assistance Needed Physical assistance Physical Assistance Level Total assistance CARE Score - Putting On/Taking Off Footwear 1 Eating Assistance Needed Physical assistance Physical Assistance Level 76% or more CARE Score - Eating 2 Toileting Hygiene Assistance Needed Physical assistance Physical Assistance Level Total assistance CARE Score - Toileting Hygiene 1 Toilet Transfer Assistance Needed Physical assistance Physical Assistance Level 76% or more CARE Score - Toilet Transfer 2 Transfer 1 Technique 1 Squat pivot Level of Assistance 1 Substantial/Max assistance Trials/Comments 1 X2 Transfer To/From Mat;Wheelchair Assistive Devices And Adaptive Equipments (tactile cues to support to use arm rest) Therapeutic Procedures Time Entry Neuromuscular Re-Education Time Entry 15 Therapeutic Activity Time Entry 30 Therapeutic Exercise Time Entry 15 Therapeutic Exercise Therapeutic Exercise Activity 1 sit to stand X10; needed cues to mainatain poistion and balance in midline, partial/mod A required overall- max A if pt not initiating Position 1 Standing Therapeutic Activity Therapeutic Activity 1 pt particiapted in visual scanning activity with pusher set up to address right laeral excursion including reaching out of base of support, added component of RUE stregtheing and command following Balance/Neuromuscular Re-Education Balance/Neuromuscular Re-Education Activity 1 dynamic sitting balance activity req verbal cues to lean anteriorly to maintain midline position during the activity Position 1 Seated Balance/Neuromuscular Re-Education Activity 2 WB on LUE to increase strength Position 2 Seated OT Assessment OT Assessment Pt showed improved participation though more with unstructured activity vs structured. req cues for safety throughout the session, demo'd one instance of throwing beanbag at someone in the gym but redirectable overall. Patient Education: Education Documentation No documentation found. Education Comments No comments found. Goals: Encounter Goals Encounter Goals (Active) Patient will perform grooming with minimum assist for improved independence with ADLs (Progressing) Start: 09/06/24 Expected End: 09/27/24 Patient will perform feeding with minimum assist for improved independence with ADLs (Progressing) Start: 09/06/24 Expected End: 09/27/24 Patient will perform upper body dressing with minimum assist to improve independence with dressing. (Progressing) Start: 09/06/24 Expected End: 09/27/24 Patient will perform lower body dressing with moderate assist to improve independence with dressing. (Progressing) Start: 09/06/24 Expected End: 09/27/24 Pt and/or caregiver(s) will have all appropriate DME, recommendations, or completed prescriptions to maximize pt's safety and independence at discharge. (Progressing) Start: 09/06/24 Expected End: 09/27/24 Patient and/or caregivers will verbalize understanding of home program including safety tips, equipment instructions, and home exercises. (Progressing) Start: 09/06/24 Expected End: 09/27/24 Patient will participate in forced use activities using the affected upper extremity with minimum assistance to inhibit abnormal movement patterns. (Progressing) Start: 09/06/24 Expected End: 09/27/24 Patient will incoporate their affected upper extremity with minimal assist/cues during functional task performance. (Progressing) Start: 09/06/24 Expected End: 09/27/24 Patient assessment the need for fabrication and wearing of left UE resting for spasticity management (Progressing) Start: 09/06/24 Expected End: 09/27/24 Patient will participate in seating and mobility trials to improve posture, reduce tone, and prevent secondary complications. (Progressing) Start: 09/06/24 Expected End: 09/27/24 Derrell Davis OT [facility] * Wanda Bernal, PT - 09/10/2024 4:10 PM MANAGER [facility] Physical Therapy Physical Therapy Visit Patient Name: Chaitanya Tena Today's Date: 09/10/2024 Subjective Pain Assessment Pain Assessment: DVPRS Pain Score: 0 Pain Rating Scale (DVPRS): No pain Clinical Progression: Not changed Vitals: 09/10/24 1338 BP: Pulse: 93 Resp: Temp: SpO2: 95% Objective General Visit Information: PT Last Visit PT Received On: 09/10/24 General Amount of Missed Time (min): 54 Minutes Missed Time Reason: Increased agitation, Patient unwilling to participate, Patient fatigue Family/Caregiver Present: Yes Others Present: daughter, son in law, granddaughter General Assessments: Activity Tolerance Endurance: Tolerates 10 - 20 min exercise with multiple rests Activity Tolerance Comments: Required verbal cues and direction to communicate rest breaks secondary to increased standing with decreased response and then verbalizing he wanted to sit Cognitive-Linguistic Functioning Overall Cognitive Status: Impaired Behavior/Cognition: Alert, Confused, Impulsive, Distractible, Requires redirection Arousal/Alertness: Delayed responses to stimuli Orientation Level: Disoriented to time, Disoriented to situation, Disoriented to place (able to state he was in hospital when given options (school v hospital), able to state he is in [place], and able to oriente to time with verbal prompting) Following Commands: Impaired Safety Judgment: Decreased awareness of need for safety Awareness of Deficits: Decreased awareness of deficits Attention: Attends with redirection Treatment: 09/10/24 1115 PT Last Visit PT Received On 09/10/24 Time Calculation Start Time 1115 Stop Time 1215 Time Calculation (min) 60 min Activity Tolerance Activity Tolerance Comments Required verbal cues and direction to communicate rest breaks secondary to increased standing with decreased response and then verbalizing he wanted to sit Pain Assessment Pain Assessment DVPRS Pain Score 0 Cognitive-Linguistic Functioning Orientation Level Disoriented to time;Disoriented to situation;Disoriented to place (able to state he was in hospital when given options (school v hospital), able to state he is in [place], and able to oriente to time with verbal prompting) Transfers Transfer Yes Transfer 1 Level of Assistance 1 Partial/Mod assistance;Supervision/touching assistance Trials/Comments 1 Initial 2 sit to stands modA, patient able to progress sit to stands with gait training to Ryan, and end of session able to perform 7/10 sit to stands with CGA, with last 3 requiring Ryan due to decreased attention Transfer To/From [id number] Gait Training Gait Training Activity Yes Gait Training Activity 1 Distance (enter in feet) 158 (3x20ft, 1x60ft, 1x38ft) Assistive Devices And Adaptive Equipments Walker, front-wheeled Level of Assistance 1 Dependent (2-person assist with walker support) Gait Training Activity 1 Comment Pt demos initial step-to gait pattern, and decreased step length. Pt demos improved step length with increased repeititon. Pt demos increased distance when given external cues to imrpove L LE swing limb advancment with external cues for error augmentation and faciliation of LE and required decreased support (2nd person in front for path maintence, and PT providing Ryan at pelvis to improve weight shift) PT Assessment PT Assessment Pt demos ability to ambulate with 2-person assist, and demos good response with use of external cues to assist with L LE advancement, foot clearence, and verbal cues to assist with motor planning each step. Pt demos improved L intattention with active rest breaks including activites where patient requires increased L cervical rotation and overall L proprioceptive activities to encourage L attention. Pt able to demo improved midline posture, improved ability to respond to verbal cues on L side, and CGA for sit to stands from wheelchair end of session. Pt demos appropriate hemodynamic response to PT this session with MAHOGANY hose and abdominal binder. Pt will contineu to benefit from skilled PT in order to further improve global mobility, L attention, and overall improve functional mobility for increased independence and decreased fall risk to improve QOL Assessment & Plan PT Assessment PT Assessment: Pt demos ability to ambulate with 2-person assist, and demos good response with use of external cues to assist with L LE advancement, foot clearence, and verbal cues to assist with motor planning each step. Pt demos improved L intattention with active rest breaks including activites where patient requires increased L cervical rotation and overall L proprioceptive activities to encourage L attention. Pt able to demo improved midline posture, improved ability to respond to verbal cues on L side, and CGA for sit to stands from wheelchair end of session. Pt demos appropriate hemodynamic response to PT this session with MAHOGANY hose and abdominal binder. Pt will contineu to benefit from skilled PT in order to further improve global mobility, L attention, and overall improve functional mobility for increased independence and decreased fall risk to improve QOL Prognosis: Good Barriers to Discharge: Medical diagnosis, Severity of deficits, Time since onset, Insight into deficits, Safety awareness Evaluation/Treatment Tolerance: Patient tolerated treatment well PT Plan Treatment Plan/Goals Established with Patient/Caregiver: Yes PT Frequency: 60-90 minutes per day PT Planned Treatment: Age appropriate play, Aquatic therapy, Assistive technology, Balance training, Basic activities of daily living, Bed mobility training, Body weight support treadmill training, Caregiver training, Community/Work reintegration, Compression wrapping, Desensitization program, Developmental skills training, Edema management, Electric modalities, Equipment training, Gait training, Group therapy, Home assessment/modification, Manual therapy, Mechanical modalities, Neuromuscular reeducation, Orthotic training, Pain management, Patient education, Positioning, Posture/Body mechanics training, Robotic assisted walking therapy, Spasticity Management, Seating, Stair training, Taping, Therapeutic activities, Therapeutic exercises, Thermal/Light modalities, Transfer training Duration: 3-4 weeks Encounter Problems Encounter Problems (Active) Bed mobility Pt will perform all bed mobility independently Start: 09/06/24 Expected End: 09/27/24 Gait goals LTG: Pt will ambulate > 150 ft with SPV and LRAD Start: 09/06/24 Expected End: 09/27/24 STG: Assess gait as appropriate Start: 09/06/24 Expected End: 09/13/24 Outcome Measure Goals LTG: Pt will improve BBS to 36/56 to indicate decreased risk for falls Start: 09/06/24 Expected End: 09/27/24 STG: Pt will improve BBS to >13/56 to indicate decreased risk for falls (IE5/56, MDC 6.9 pts) Start: 09/06/24 Expected End: 09/13/24 PT Home Program Within 2 weeks of starting therapy, the patient and/or family/caregiver will demonstrate independence and be compliant in a written HEP in order to maximize gains made during therapy. Start: 09/06/24 Expected End: 09/27/24 SP/Stand Step Transfers LTG: Pt will perform stand step transfers with set-up assist and LRAD Start: 09/06/24 Expected End: 09/27/24 STG: Pt will perform stand step transfers with touch A and LRAD Start: 09/06/24 Expected End: 09/20/24 [facility] * Tiana Slaughter OT - 09/10/2024 3:15 PM MANAGER [facility] Facility Dog Facility Dog Note Patient Name: Chaitanya Tena Date of Admission: 09/05/2024 Today's Date: 09/10/2024 Preferred Language: Tanzanian 09/10/24 1515 Time Calculation Start Time 1515 Stop Time 1600 Time Calculation (min) 45 min General Reason for Facility Dog Consult Improved attention;Improved social integration;Increased participation in therapies/treatment Intervention Type Co-treat Co-Treatment With Occupational Therapy Intervention Provided to Patient Chart Review Completed Yes Pain Assessment Pain Assessment DVPRS Pain Score 0 Pain Rating Scale (DVPRS) 0 Baseline Assessment Affect Before Intervention Calm;Tired Intervention Individuals Present Child/children of patient;Other (Comment) (granddaughter) Goal of Facility Dog Intervention Participation/motivation;Psychosocial/emotional support Participation/Motivation Intervention Cognitive skills;Expressive and receptive communication;Fine motor activities;Gross motor activities;Sensory stimulation/engagement Patient participated in animal assisted intervention while seated EOM with OT and tech assist. Patient with strong preference for R gaze (at baseline daughter states patient's L eye is "lazy eye"). Patient engaged in petting and brushing facility dog. Facility dog intially seated in front and slightly to R of patient to reach across midline with LUE to minimize contralateral pushing. Facility dog then moved to center and ultimately slight L of patient to encourage L attention and visual tracking. Engaged patient in conversation about facility dog, with efforts to employ errorless learning and repetition of information (FD name, age, breed, etc). Mod to max MIAMI assist to received and return pictures from facility dog, as well as receive kibble to feed facility dog with LUE lateral pinch. See OT notes for additional details. Psychosocial/emotional Support Interventions Social engagement;Normalize hospital environment Patient/Family Involvement family present and engaged throughout session Education role/goal of facility dog Post-Intervention Assessment Affect Post-Intervention Calm;Tired Patient's Response to Facility Dog Intervention Actively engaged (Actively engaged with mod verbal and tactile cues) Plan Plan Future visits recommended as able Future Visit Types Co-Treatment Future Visits Co-Treatment With Occupational Therapy;Physical Therapy Recommended Session Duration Other (Comment) (30-45 min) Tiana Slaughter OT [facility] Facility Dog [place] [facility] * Kiki Delgado OT - 09/10/2024 3:00 PM MANAGER [facility] Treatment Session Note Patient Name: Chaitanya Tena Today's Date: 09/10/2024 Preferred Language: Tanzanian Assessment & Plan Assessment: Evaluation/Treatment Tolerance: Patient tolerated treatment well (Pt demonstrates with severe left sided visual impairments with decreased attention. Pt did benefit from therapy dog cotreat.) Plan: Treatment Plan/Goals Established with Patient/Caregiver: Yes Treatment Interventions: ADL retraining, Cognitive reorientation, Aquatic therapy, Compensatory technique education, Endurance training, Equipment evaluation/education, Functional transfer training, Fine motor coordination activities, Neuromuscular reeducation, Orthotic/Orthotic management, Patient/family training, Positioning, UE strengthening/ROM, Visual perceptual retraining OT Plan: Skilled OT OT Frequency: 5-7 times per week OT Planned Treatments: Work simplification, Discharge, Activities of Daily Living, Aquatics, Balance training, Caregiver training, Casting, Cognitive training, Coordination, Developmental skills training, Discharge/Discontinue OT treatment, Dry needling, Edema managment, Electric modalities, Energy conservation training, Equipment assessment, Equipment training, Group therapy, Home program, Joint protection, Manual therapy, Mobility training, Neuromuscular reeducation, Orthotic, Pain management, Patient education, Prevocational training, Safety education, Seating/Positioning, Sensory integration, Spasticity Managment, Splinting, Taping, Therapeutic activities, Therapeutic exercises, Thermal modalities, Visual and perceptual training OT Duration: 3-4 weeks Subjective Pain: Pain Assessment Pain Assessment: 0-10 (09/10/2024 1500) Pain Score: 0 (09/10/2024 1500) Pain Rating Scale (DVPRS): No pain (09/10/2024 1500) David-Cano FACES Pain Rating: No hurt (09/10/20241499) Vital Signs: Patient Vitals for the past 12 hrs: BP MAP (mmHg) Pulse Resp SpO2 09/10/24 1732 146/61 89 -- -- -- 09/10/24 1725 146/61 -- -- -- -- 09/10/24 1500 (!) 122/54 -- 90 -- -- 09/10/24 1338 -- -- 93 -- 95 % 09/10/24 1338 (!) 128/58 81 -- -- 97 % 09/10/24 1303 -- -- 88 17 97 % 09/10/24 1251 -- -- 86 16 95 % 09/10/24 1115 (!) 130/96 -- -- -- -- 09/10/24 0952 (!) 178/77 (!) 111 -- -- -- 09/10/24 0948 (!) 178/77 -- 91 -- -- 09/10/24 0731 159/61 94 87 17 94 % 09/10/24 0707 -- -- 73 16 97 % 09/10/24 0656 -- -- 72 16 94 % 09/10/24 0655 -- -- 72 16 94 % No data found. Objective 09/10/24 1500 General Family/Caregiver Present Yes (daughter and other family members) Others Present physiotherapy assistantyasmeen Marquez Time Calculation Start Time 1500 Stop Time 1600 Time Calculation (min) 60 min Co-Treatment Co-Treatment Yes Co-Treatment With Facility System Support Developer Primary Therapist Occupational Therapy Pain Assessment Pain Assessment 0-10 Pain Score 0 Pain Rating Scale (DVPRS) 0 David-Cano FACES Pain Rating 0 Transfer 1 Technique 1 Squat pivot Level of Assistance 1 Substantial/Max assistance (of 2) Transfer To/From Wheelchair;Mat Transfers 2 Technique 2 Squat pivot Level of Assistance 2 Substantial/Max assistance (of 2) Transfer To/From Mat;Wheelchair Wheelchair Activities Wheelchair Size (pt demonstrates with left sided obliquity. Obliquity pad is trialed while seated EOM with no change in sitting posture. Primary OT to continue to assess) Therapeutic Activity Therapeutic Activity 1 Pt participates in anterior reaching to pet and brush facility dog. Pt initially performs with anteior reach toward right to reduce pushing tendence and gradually toward midline. Pt requires maximum v/c's for attention left and will benefit from a low vision consult to fully assess vision Cognitive Skill Development Cognitive Skill Development Activity 1 Pt participating in facility dog cotreat pt was asked to remember dogs age and breed with maximum v/c's to remember. OT Assessment Evaluation/Treatment Tolerance Patient tolerated treatment well (Pt demonstrates with severe left sided visual impairments with decreased attention. Pt did benefit from therapy dog cotreat.) Patient Education: Education Documentation No documentation found. Education Comments No comments found. Goals: Encounter Goals Encounter Goals (Active) Patient will perform grooming with minimum assist for improved independence with ADLs Start: 09/06/24 Expected End: 09/27/24 Patient will perform feeding with minimum assist for improved independence with ADLs Start: 09/06/24 Expected End: 09/27/24 Patient will perform upper body dressing with minimum assist to improve independence with dressing. Start: 09/06/24 Expected End: 09/27/24 Patient will perform lower body dressing with moderate assist to improve independence with dressing. Start: 09/06/24 Expected End: 09/27/24 Pt and/or caregiver(s) will have all appropriate DME, recommendations, or completed prescriptions to maximize pt's safety and independence at discharge. Start: 09/06/24 Expected End: 09/27/24 Patient and/or caregivers will verbalize understanding of home program including safety tips, equipment instructions, and home exercises. Start: 09/06/24 Expected End: 09/27/24 Patient will participate in forced use activities using the affected upper extremity with minimum assistance to inhibit abnormal movement patterns. Start: 09/06/24 Expected End: 09/27/24 Patient will incoporate their affected upper extremity with minimal assist/cues during functional task performance. Start: 09/06/24 Expected End: 09/27/24 Patient assessment the need for fabrication and wearing of left UE resting for spasticity management Start: 09/06/24 Expected End: 09/27/24 Patient will participate in seating and mobility trials to improve posture, reduce tone, and prevent secondary complications. 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 PlanFollow-up: Follow as circumstances allow [facility] * Papi Maurice MD - 09/10/2024 10:04 AM MANAGER [facility] REASON FOR ADMISSION/CC: No chief complaint on file. SUBJECTIVE: No overnight events reports. Patient expresses no new concerns. OBJECTIVE: Vitals: 09/10/24 0952 BP: (!) 178/77 Pulse: Resp: Temp: SpO2: amLODIPine, 10 mg, Oral, Daily aspirin, 324 mg, Nasogastric, Daily atorvastatin, 80 mg, Oral, Daily Boost Glucose Control, 1 Container, Oral, TID with meals caffeine, 100 mg, Oral, Daily Docusate Sodium, 100 mg, Per G Tube, q12h heparin, 5,000 Units, Subcutaneous, q8h influenza vaccine, 0.5 mL, Intramuscular, During hospitalization insulin glargine, 30 Units, Subcutaneous, Every evening insulin lispro, 7 Units, Subcutaneous, TID with meals ipratropium-albuterol, 3 mL, Nebulization, q6h losartan, 75 mg, Oral, Daily melatonin, 3 mg, Per G Tube, Nightly mirtazapine, 7.5 mg, Oral, Nightly modafinil, 100 mg, Oral, Daily polyethylene glycol (PEG) 3350, 17 g, Per G Tube, q12h sennosides, 1 tablet, Oral, Nightly PRN medications: bisacodyl, dextrose, glucagon, insulin lispro, levETIRAcetam, magnesium hydroxide, midazolam, sodium chloride Physical Exam:General: No acute distress. Appears well-developed. HEENT: MMM. No scleral icterus. CV: No pallor. No cyanosis. Pulm: Respirations non-labored on room air. No cough. Neuro: Awake, alert, and interactive. Psych: Calm and cooperative. 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 Acute stroke due to thrombosis of right middle cerebral artery (HCC)2. Hemiparesis affecting left side as late effect of stroke (CMS/HCC) (HCC) 3. Other abnormalities of gait and mobility 4. Cognitive communication deficit 5. Other hyperlipidemia 6. Other sleep disorders 7. Neurogenic bowel 8. Other neuromuscular dysfunction of bladder 9. Diabetes mellitus due to underlying condition with hyperglycemia, without long-term current use of insulin (HCC) 10. Primary hypertension 11. Intracranial atherosclerosis 12. 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 Uncontrolled type 2 diabetes mellitus with hyperglycemia (HCC) PLAN:- The above medical issues remain stable. Continue current medical management. - Continue comprehensive rehabilitation. Papi Maurice [facility] PM[facility] PGY2 Cosigned by Holden Karimi MD at 09/10/2024 7:41 PM MANAGER WIRELESS GER WIRELESS GER WIRELESS Associated attestation - Holden Karimi MD - 09/10/2024 7:41 PM CST I was present with the resident during the history and exam. I discussed the case with the resident and agree with the findings and plan as documented in the resident's note. * Rosemarie Meyer MD - 09/09/2024 12:00 PM MANAGER WIRELESS [place] Hospitalist Consult Progress Note Subjective Yesterday pt was more somnolent Now more awake , at bed side , no complaints Patient is on 1:1 feedings Objective Vitals: 09/09/24 0722 09/09/24 0732 09/09/24 0831 09/09/24 0831 BP: 124/60 124/60 Pulse: 76 78 Resp: 16 16 Temp: SpO2: 95% 97% Physical exam Patient is not in acute distress HEENT - Oral mucosa moist Pupils equally reacting to light bilaterally No jugular venous distention neck is supple No obvious lymphadenopathy CVS- s2 s2 normal , No murmur RS-decreased air entry bilaterally PA-Soft and Non tender , Bowel sounds present , No guarding or rigidity 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 able to communicate, left-sided weakness Musculoskeletal -Normal range of motion Extremities- minimal left leg swelling Skin - warm and No rashes Current Active Medications amLODIPine, 10 mg, Oral, Daily aspirin, 324 mg, Nasogastric, Daily atorvastatin, 80 mg, Oral, Daily Boost Glucose Control, 1 Container, Oral, TID with meals caffeine, 100 mg, Oral, Daily Docusate Sodium, 100 mg, Per G Tube, q12h heparin, 5,000 Units, Subcutaneous, q8h influenza vaccine, 0.5 mL, Intramuscular, During hospitalization insulin glargine, 30 Units, Subcutaneous, Every evening insulin lispro, 8 Units, Subcutaneous, TID with meals ipratropium-albuterol, 3 mL, Nebulization, q6h losartan, 75 mg, Oral, Daily melatonin, 3 mg, Per G Tube, Nightly mirtazapine, 7.5 mg, Oral, Nightly modafinil, 100 mg, Oral, Daily polyethylene glycol (PEG) 3350, 17 g, Per G Tube, q12h sennosides, 1 tablet, Oral, Nightly PRN medications: bisacodyl, dextrose, glucagon, insulin lispro, levETIRAcetam, magnesium hydroxide, midazolam, sodium chloride Imaging:CT BRAIN WO IV CONTRAST Narrative: Radiation Dose CTDIVOL = 51.2 (mGy): DLP = 956 (mGy-cm) PROCEDURE INFORMATION:Exam: CT Head Without Contrast Exam date and time: 09/08/2024 12:25 PM Age: 78 years old Clinical indication: Cognitive changel subacute R mca stroke TECHNIQUE:Imaging protocol: Computed tomography of the head without contrast. Radiation optimization: All CT scans at this facility use at least one of these dose optimization techniques: automated exposure control; mA and/or kV adjustment per patient size (includes targeted exams where dose is matched to clinical indication); or iterative reconstruction. COMPARISON:CT BRAIN WO IV CONTRAST 09/06/2024 11:42 AM RADIATION DOSE METRICS:CTDI volume (mGy): 51.2 Total DLP (mGy-cm): 956 FINDINGS:Brain: Unchanged left parieto-occipital encephalomalacia. Redemonstrated recent right MCA distribution infarct with unchanged small regions of gyriform hyperdensity within the infarct concerning for petechial hemorrhage versus early cortical laminar necrosis. No evidence of new large territorial infarct. No new intracranial hemorrhage. No new mass effect. No midline shift. Cerebral ventricles: Unchanged ex vacuo dilatation of the left lateral ventricle. No evidence of acute hydrocephalus. Paranasal sinuses: Mucosal retention cyst in the left maxillary sinus fluid Mastoid air cells: Non-specific patchy opacification of the mastoid air cells, right worse than left. Bones: Unremarkable. No acute fracture. Soft tissues: Impression: Redemonstrated recent right MCA distribution infarct with unchanged small regions of petechial hemorrhage versus early cortical laminar necrosis. ELECTRONICALLY SIGNED BY SOLEDAD GARCIA MD ON 09/08/2024 AT 13:28. Lab ResultsResults from last 7 days Lab Units 09/08/24 0557 09/06/24 0450 09/05/24 0415 WBC 10*3/uL 8.93 11.57* 10.36* HEMOGLOBIN g/dL 11.4* 12.3* 12.0* HEMATOCRIT % 35.1* 40.3 38.6 PLATELETS 10*3/uL 362 366 369 Results from last 7 daysLab Units 09/09/24 0832 09/08/24 0757 09/08/24 0557 09/05/24 0837 09/05/24 0239 09/04/24 0614 09/04/24 0312 SODIUM mEq/L -- -- 141 -- 142 -- 142 POTASSIUM mEq/L -- -- 3.9 -- 4.1 -- 3.9 CHLORIDE mEq/L -- -- 103 -- 105 -- 104 CO2 mEq/L -- -- 30.6 -- 28.4 -- 30.1 BUN mg/dL -- -- 27* -- 27* -- 24* CREATININE mg/dL -- -- 1.01 -- 1.08 -- 1.05 GLUCOSE mg/dL -- -- 107* -- 138* -- 59* POC GLUCOSE mg/dL 77 < > -- < > -- < > -- CALCIUM mg/dL -- -- 9.4 -- 9.4 -- 9.6 < > = values in this interval not displayed. Micro:Susceptibility data from last 90 days. 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 Hospital course was complicated by pneumonia which was treated with antibiotics. Antibiotics were completed on 08/28. Now patient is transferred here for comprehensive rehab. Acute CVA-Right MCA CVA on 08/19 status post TNK and endovascular thrombectomy on 08/19 -MRI consistent with right MCA infarct DAPT with aspirin and Plavix for 21 days and aspirin lifelong thereafter -Per neurology etiology of stroke was embolic stroke of undetermined source -Comprehensive rehab per primary team -ASA and statin Hypoxic respiratory failure-Patient was recently treated for pneumonia, completed antibiotic on 08/28 -X-ray chest- no new infiltrate -Continue to monitor clinical course -ultrasound of extremities pending read Dysphagia-Continue dysphagia diet with 1:1 feeding Hypertension-Continue amlodipine 10 mg p.o. daily, losartan 75 mg daily -Monitor blood pressure Type 2 diabetes-Hemoglobin A1c is 9.4 -Continue Lantus 30 units and Lispro TID 8 units - with meal -patient is 1:1 Feed -continue SSI -will closely monitor BG Adult Diet Dysphagia; 0 - Thin Liquids; 5 - Minced & Moist (Dysphagia Ground); 1:1 Feeding VTE prophylaxis: heparin - 5000 units/mL Disposition: Per primary team Hospitalist service is consulting service, please use secure chat for any questions or concerns Thank you for consulting [place] hospitalist Rosemarie Meyer MD Mortgage Loan Processing Clerk, Hospitalist Division [facility] [place] GER WIRELESS * Kentrell Pickering DO - 09/09/2024 11:01 AM MANAGER WIRELESS Physical Medicine & Rehabilitation Progress Note Reason for Admission: 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) [I63.311] HPI: No overnight events No nursing concerns Patient denies any new symptoms Bladder Continence Status: Non-stress incontinence, Bowel Continence Status: No movement No intake or output data in the 24 hours ending 09/09/24 1101 Dietary Orders (From admission, onward) Start Ordered 09/08/24 1233 Adult Diet Dysphagia; 0 - Thin Liquids; 5 - Minced & Moist (Dysphagia Ground); 1:1 Feeding Diet effective now Question Answer Comment Diet type Dysphagia Liquid Consistency or Liquid Type: 0 - Thin Liquids Modify Texture or Food Level (Dysphagia): 5 - Minced & Moist (Dysphagia Ground) Tray Precautions: 1:1 Feeding 09/08/24 1233 Current Facility-Administered Medications:amLODIPine (Norvasc) tablet 10 mg, 10 mg, Oral, Daily, Rosemarie Meyer MD, 10 mg at 09/09/24 0831 aspirin chewable tablet 324 mg, 324 mg, Nasogastric, Daily, Bernadette Norton MD, 324 mg at 09/09/24 0827 atorvastatin (Lipitor) tablet 80 mg, 80 mg, Oral, Daily, Bernadette Norton MD, 80 mg at 09/09/24 0828 bisacodyl (Dulcolax) suppository 10 mg, 10 mg, Rectal, Nightly PRN, Bernadette Norton MD Boost Glucose Control liquid 237 mL, 1 Container, Oral, TID with meals, Bernadette Norton MD, 237 mL at 09/09/24 0828 caffeine tablet 100 mg, 100 mg, Oral, Daily, Bernadette Norton MD, 100 mg at 09/09/24 0835 dextrose 50 % solution 12.5 g, 12.5 g, Intravenous, PRN, Bernadette Norton MD Docusate Sodium oral liquid 100 mg, 100 mg, Per G Tube, q12h, Bernadette Norton MD, 100 mg at 09/09/24 0607 glucagon injection 1 mg, 1 mg, Intramuscular, PRN, Bernadette Norton MD heparin injection 5,000 Units, 5,000 Units, Subcutaneous, q8h, Bernadette Norton MD, 5,000 Units at 09/09/24 0607 influenza vac split high-dose (Fluzone High-Dose) syringe 0.5 mL, 0.5 mL, Intramuscular, During hospitalization, Bernadette Norton MD insulin glargine (Lantus) pen 30 Units, 30 Units, Subcutaneous, Every evening, Elena Simpson MD, 30 Units at 09/08/24 1738 insulin lispro (HumaLOG, Admelog) injection 3-12 Units, 3-12 Units, Subcutaneous, TID PRN, Bernadette Norton MD, 6 Units at 09/08/24 1738 insulin lispro (Humalog, Admelog) injection 8 Units, 8 Units, Subcutaneous, TID with meals, Rosemarie Meyer MD ipratropium-albuterol (Duo-Neb) 0.5-2.5 mg/3 mL nebulizer solution 3 mL, 3 mL, Nebulization, q6h, Bernadette Norton MD, 3 mL at 09/09/24 0722 levETIRAcetam (Keppra) injection 1,500 mg, 1,500 mg, Intravenous, PRN, Bernadette Norton MD losartan (Cozaar) tablet 75 mg, 75 mg, Oral, Daily, Rosemarie Meyer MD, 75 mg at 09/06/24 1622 magnesium hydroxide (Milk of Magnesia) 400 MG/5ML suspension 30 mL, 30 mL, Oral, Daily PRN, Bernadette Norton MD, 30 mL at 09/07/24 0907 melatonin tablet 3 mg, 3 mg, Per G Tube, Nightly, Bernadette Norton MD, 3 mg at 09/08/24 210 midazolam (Versed) injection 5 mg, 5 mg, Intramuscular, PRN, Bernadette Norton MD mirtazapine (Remeron) tablet 7.5 mg, 7.5 mg, Oral, Nightly, Bernadette Norton MD, 7.5 mg at 09/08/242108 modafinil (Provigil) tablet 100 mg, 100 mg, Oral, Daily, Bernadette Norton MD, 100 mg at 09/09/24 0828 polyethylene glycol (PEG) 3350 (Miralax) packet 17 g, 17 g, Per G Tube, q12h, Bernadette Norton MD, 17 g at 09/09/24 0607 sennosides (Senokot) tablet 8.6 mg, 1 tablet, Oral, Nightly, Bernadette Norton MD, 8.6 mg at 09/08/242108 sodium chloride (NS) 0.9 % flush 10 mL, 10 mL, Intravenous, PRN, Bernadette Norton MD Objective: Vitals:09/09/24 0831 BP: 124/60 Pulse: Resp: Temp: SpO2: General: no apparent distress, breathing comfortably WBC Date/Time Value Ref Range Status 09/08/2024 05:57 AM 8.93 3.92-.10.07 10*3/uL Final HgbDate/Time Value Ref Range Status 09/08/2024 05:57 AM 11.4 (L) 12.4 - 17.4 g/dL Final POC A Hct (calc)Date/Time Value Ref Range Status 08/20/2024 12:25 AM 42.0 40.1 - 51.0 % Final HctDate/Time Value Ref Range Status 09/08/2024 05:57 AM 35.1 (L) 37.1 - 50.8 % Final Plt CountDate/Time Value Ref Range Status 09/08/2024 05:57 AM 362 160 - 381 10*3/uL Final BUNDate/Time Value Ref Range Status 09/08/2024 05:57 AM 27 (H) 9 - 23 mg/dL Final POC A GluDate/Time Value Ref Range Status 08/20/2024 12:25 AM 221 (H) 70 - 99 mg/dL Final Glucose LvlDate/Time Value Ref Range Status 09/08/2024 05:57 AM 107 (H) 70 - 99 mg/dL Final Comment: Adult reference range values reflect the clinical guidelines of the [place] [employer]. POC GluDate/Time Value Ref Range Status 09/09/2024 08:32 AM 77 70 - 99 mg/dL Final POC A KDate/Time Value Ref Range Status 08/20/2024 12:25 AM 4.1 3.5 - 5.1 mEq/L Final Potassium LvlDate/Time Value Ref Range Status 09/08/2024 05:57 AM 3.9 3.4 - 4.5 mEq/L Final POC A NaDate/Time Value Ref Range Status 08/20/2024 12:25 AM 129 (L) 135 - 145 mEq/L Final Sodium LvlDate/Time Value Ref Range Status 09/08/2024 05:57 AM 141 136 - 145 mEq/L Final CO2 LvlDate/Time Value Ref Range Status 09/08/2024 05:57 AM 30.6 20.0 - 31.0 mEq/L Final POC ChlorideDate/Time Value Ref Range Status 08/20/2024 12:25 AM 95 95 - 109 mEq/L Final Chloride LvlDate/Time Value Ref Range Status 09/08/2024 05:57 AM 103 98 - 107 mEq/L Final CT BRAIN WO IV CONTRASTResult Date: 09/08/2024 Impression: Redemonstrated recent right MCA distribution infarct with unchanged small regions of petechial hemorrhage versus early cortical laminar necrosis. ELECTRONICALLY SIGNED BY SOLEDAD GARCIA MD ON 09/08/2024 AT 13:28. CT BRAIN WO IV CONTRASTResult Date: 09/06/2024 Impression: 1. Redemonstrated recent right frontal lobe infarction with minimal petechial hemorrhage, grade 1 hemorrhagic transformation. No prema hematoma conversion. Findings are stable to minimally progressed. 2. Old infarct of the left parietal lobe. 3. No midline shift or mass effect. ELECTRONICALLY SIGNED BY FERNANDO BLOCK MD ON 09/06/2024 AT 13:22. XR abdomen 1 viewResult Date: 09/06/2024 Impression: Moderate retained fecal matter throughout the colon. ELECTRONICALLY SIGNED BY VEE MAYERS MD ON 09/06/2024 AT 09:08. ECG 12 leadResult Date: 09/05/2024 Impression: SINUS RHYTHM WITH FREQUENT PREMATURE VENTRICULAR COMPLEX(ES) LOW QRS VOLTAGE -- CONSIDER PULMONARY DISEASE, PERICARDIAL EFFUSION, OR NORMAL VARIANT BORDERLINE ECG WHEN COMPARED WITH ECG OF 30-AUG-2024 17:21, PREMATURE VENTRICULAR COMPLEX(ES) ARE NOW PRESENT QUESTIONABLE CHANGE IN THE AXIS Assessment/Plan:ICD-10-CM 1. 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 Hemiparesis affecting left side as late effect of stroke (CMS/HCC) (HCC) I69.354 Ambulatory referral to Home Health 3. Other abnormalities of gait and mobility R26.89 Ambulatory referral to Home Health 4. Cognitive communication deficit R41.841 Ambulatory referral to Home Health 5. Other hyperlipidemia E78.49 6. Other sleep disorders G47.8 7. Neurogenic bowel K59.2 8. 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 Diabetes mellitus due to underlying condition with hyperglycemia, without long-term current use of insulin ([facility]) E08.65 10. Primary hypertension I10 Ambulatory referral to Home Health 11. Intracranial atherosclerosis I67.2 12. 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) I63.311 Ambulatory referral to Home Health 13. Uncontrolled type 2 diabetes mellitus with hyperglycemia ([facility]) E11.65 Ambulatory referral to Home Health 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 ([facility]) [I63.311] DVT ppx:Last Anticoag Admin heparin injection 5,000 Units Given 5,000 Units at 0607 Frequency: Every 8 hours There are additional administrations since 09/06/24 1101 that are not shown.No unadministered anticoagulant orders found. Active meds, labs and vitals reviewed. No acute issues. Continue comprehensive therapies. Continue treatment plan as specified above. ---Thank you for allowing us to participate in the care of this patient Patient seen with Dr. Holden Pickering Jr, DO, MSPM&R PGY-2 [facility] Cosigned by Holden Karimi MD at 09/09/2024 9:08 PM MANAGER WIRELESS GER WIRELESS GER WIRELESS Associated attestation - Holden Karimi MD - 09/09/2024 9:08 PM CST I was present with the resident during the history and exam. I discussed the case with the resident and agree with the findings and plan as documented in the resident's note. * Sadaf Barragan, OT - 09/08/2024 2:08 PM MANAGER WIRELESS Occupational Therapy Treatment Session Note Patient Name: Chaitanya Tena Today's Date: 09/08/2024 Preferred Language: Tanzanian Assessment & Plan Assessment: OT Assessment: RN present at OT arrival, reports pt having suspected orthostatic epiosde with low arousal and difficulty awaking with noxious stim, recommends bed level activity. Therefore pt progressively increased into bed chair position as detailed above. Pt with intermittent bouts of decreased arousal, however all BPs WFL, see vitals for details. Pt with no signs of orthostasis during OT session. Pt is noted with active resistance to ROM at RUE. Pt remains in chair bed position with family present, RN aware, vitals stable and appropriate guard rails. Plan: Treatment Plan/Goals Established with Patient/Caregiver: Yes Treatment Interventions: ADL retraining, Cognitive reorientation, Aquatic therapy, Compensatory technique education, Endurance training, Equipment evaluation/education, Functional transfer training, Fine motor coordination activities, Neuromuscular reeducation, Orthotic/Orthotic management, Patient/family training, Positioning, UE strengthening/ROM, Visual perceptual retraining OT Plan: Skilled OT OT Frequency: 5-7 times per week OT Planned Treatments: Work simplification, Discharge, Activities of Daily Living, Aquatics, Balance training, Caregiver training, Casting, Cognitive training, Coordination, Developmental skills training, Discharge/Discontinue OT treatment, Dry needling, Edema managment, Electric modalities, Energy conservation training, Equipment assessment, Equipment training, Group therapy, Home program, Joint protection, Manual therapy, Mobility training, Neuromuscular reeducation, Orthotic, Pain management, Patient education, Prevocational training, Safety education, Seating/Positioning, Sensory integration, Spasticity Managment, Splinting, Taping, Therapeutic activities, Therapeutic exercises, Thermal modalities, Visual and perceptual training OT Duration: 3-4 weeks Subjective Pain: Pain Assessment Pain Assessment: DVPRS (09/08/2024 1408) Pain Score: 0 (09/08/2024 1408) Pain Rating Scale (DVPRS): No pain (09/08/2024 1408) Pt with 0/10 on DVPRS pain rating scale at end of session. Vital Signs: Patient Vitals for the past 24 hrs: BP MAP (mmHg) Pulse Resp SpO2 09/08/24 1430 (!) 133/57 82 -- -- -- 09/08/24 1422 132/63 86 -- -- -- 09/08/24 1419 (!) 140/51 81 -- -- -- 09/08/24 1347 -- -- -- -- 97 % 09/08/24 1345 110/63 79 -- -- -- 09/08/24 1154 -- -- 77 16 95 % 09/08/24 1144 -- -- 76 16 93 % 09/08/24 1109 -- -- 77 -- 96 % 09/08/24 1109 (!) 122/50 74 -- -- -- 09/08/24 1108 -- -- 79 -- 90 % 09/08/24 0801 (!) 108/56 73 95 -- -- 09/08/24 0752 -- -- 83 16 98 % 09/08/24 0742 -- -- 82 16 96 % 09/08/24 0741 -- -- 82 16 96 % 09/08/24 0738 -- -- 85 -- 96 % 09/08/24 0737 (!) 116/56 76 -- -- -- 09/07/242047 -- -- 85 18 98 % 09/07/242037 -- -- 89 18 96 % 09/07/242009 141/66 91 93 -- -- 09/07/24 1811 (!) 127/56 80 88 -- -- 09/07/24 1500 -- -- 86 18 95 % Objective 09/08/24 1408 General Missed Treatment Reason Nursing care Time Calculation Start Time 1408 Stop Time 1432 Time Calculation (min) 24 min Pain Assessment Pain Assessment DVPRS Pain Score 0 Pain Rating Scale (DVPRS) 0 ADL UE Dressing Activity Component(s) Zip-up sweatshirt/jacket Upper Body Dressing Dressing Location/Position In bed Assistive Devices And Adaptive Equipments Height adjustment feature of hospital bed Level of Assistance Dependent Comment doffed Bed Mobility 1 Level of Assistance 1 Partial/Mod assistance Bed Mobility Comments 1 facilitation toward L rolling for RUE engagement Bed Mobility To/From Roll left/right Assistive Devices And Adaptive Equipments Bed rail Therapeutic Exercise Therapeutic Exercise Activity 1 air boxing for ~1min, OT attempting to facilitate RUE engagement, however pt is noted with active resistance to assistance despite max cueing. Pt's family reports "R arm his stronger arm" unsure if behavioral vs neurologic active resistance present Position 1 Seated (bed chair position) Therapeutic Exercise Activity 2 leg squeezes with pillow in between thighs 1x20 reps Position 2 Seated Therapeutic Activity Therapeutic Activity 1 vitals monitoring and progressively increasing bed chair position secondary to suspected orthostasis per RN OT Assessment OT consulting sales executive present at OT arrival, reports pt having suspected orthostatic epiosde with low arousal and difficulty awaking with noxious stim, recommends bed level activity. Therefore pt progressively increased into bed chair position as detailed above. Pt with intermittent bouts of decreased arousal, however all BPs WFL, see vitals for details. Pt with no signs of orthostasis during OT session. Pt is noted with active resistance to ROM at RUE. Pt remains in chair bed position with family present, RN aware, vitals stable and appropriate guard rails. Sadaf Barragan OT GER WIRELESS * Bernadette Norton MD - 09/08/2024 11:38 AM MANAGER WIRELESS Patient seen briefly this morning and was lying comfortably but was able to indicate that he was doing well. I later seen patient at bedside as his family was there and nursing notified me that there was a concern about a change in his overall arousal. It apparently did well with speech therapy but during Occupational Therapy was noted to have decreased arousal. Nursing staff was saying that he was not arousable and never concern his pupils were not reactive. Came to the patient's side and he did awaken with sternal rub. He did remain fairly drowsy. He was able to speak in this fairly dysarthric with close to his recent baseline. Continued to show movement in all of his limbs but with some weakness on the left upper limb. Reviewed medications and he not received anything recently that may have contributed to a change in his status. He has been having variable blood pressures and blood glucoses but those are controlled at this time. Of note, his cranial imaging that was done 2 days previously did show a small level of hemorrhagic conversion. Will order repeat CT scan to ensure there is no worsening or other new intracranial pathology. Otherwise we will work on getting a more consistent level arousal. Patient's family including his daughter updated at bedside. Miguel Norton MD MSO#[id number] Addendum: CT without obvious new pathology. Seen a few times later and at baseline. Possibly related to low BP's. Internal Medicine adjusting medications. 54 minutes in total coordination of care. GER WIRELESS GER WIRELESS * Thelma Cuevas, PT - 09/08/2024 11:00 AM MANAGER WIRELESS Treatment Session Note Patient Name: Chaitanya Tena Today's Date: 09/08/2024 Preferred Language: Tanzanian Assessment & Plan Assessment: PT Assessment: Pt presenting with increased fatigue and PT spends 30 mins with family trying to wake pt up. Pt vitals and O2 sats are within normal limits. MD and RN present and MD recommending CT scan due to hypoarousal. PT assisting pt back to bed with substantial A. When awake, pt with increased agitation pushing PT away and one instance of yelling very loudly at his family in addition to cursing. Plan: Treatment Plan/Goals Established with Patient/Caregiver: Yes PT Frequency: 60-90 minutes per day PT Planned Treatment: Age appropriate play, Aquatic therapy, Assistive technology, Balance training, Basic activities of daily living, Bed mobility training, Body weight support treadmill training, Caregiver training, Community/Work reintegration, Compression wrapping, Desensitization program, Developmental skills training, Edema management, Electric modalities, Equipment training, Gait training, Group therapy, Home assessment/modification, Manual therapy, Mechanical modalities, Neuromuscular reeducation, Orthotic training, Pain management, Patient education, Positioning, Posture/Body mechanics training, Robotic assisted walking therapy, Spasticity Management, Seating, Stair training, Taping, Therapeutic activities, Therapeutic exercises, Thermal/Light modalities, Transfer training Duration: 3-4 weeks Subjective Pt received sitting in [facility] with family and two RN present. Pt with BP cuff donned and pulse ox donned, vitals WNL but pt still hypoarousable. Pt left supine in bed with RN, RT, and family present. Pain: Pain Assessment Pain Assessment: DVPRS (09/08/20241099) Pain Score: 0 (09/08/20241099) Clinical Progression: Not changed (09/08/20241099) Vital Signs: Patient Vitals for the past 12 hrs: BP MAP (mmHg) Pulse Resp SpO2 09/08/24 1154 -- -- 77 16 95 % 09/08/24 1144 -- -- 76 16 93 % 09/08/24 1109 -- -- 77 -- 96 % 09/08/24 1109 (!) 122/50 74 -- -- -- 09/08/24 1108 -- -- 79 -- 90 % 09/08/24 0801 (!) 108/56 73 95 -- -- 09/08/24 0752 -- -- 83 16 98 % 09/08/24 0742 -- -- 82 16 96 % 09/08/24 0741 -- -- 82 16 96 % 09/08/24 0738 -- -- 85 -- 96 % 09/08/24 0737 (!) 116/56 76 -- -- -- No data found. Objective 09/08/24 1100 General Amount of Missed Time (min) 54 Minutes Missed Time Reason Increased agitation;Patient unwilling to participate;Patient fatigue Family/Caregiver Present Yes Others Present daughter, son in law, granddaughter Time Calculation Start Time 1100 Stop Time 1145 Time Calculation (min) 45 min Pain Assessment Pain Assessment DVPRS Pain Score 0 Clinical Progression Not changed Therapeutic Activity Therapeutic Activity Time Entry 6 Therapeutic Activity 1 monitoring vitals, transfer back to bed Bed Mobility 1 Level of Assistance 1 Substantial/Max assistance Bed Mobility To/From Sitting EOB to supine Sit to Lying Assistance Needed Physical assistance Physical Assistance Level 76% or more CARE Score - Sit to Lying 2 Transfers Transfer Yes Transfer 1 Technique 1 Squat pivot Level of Assistance 1 Substantial/Max assistance Trials/Comments 1 pt actively pushing PT away Transfer To/From Wheelchair;Bed Assistive Devices And Adaptive Equipments No device Chair/[id number]-[id number] Transfer Assistance Needed Physical assistance Physical Assistance Level 76% or more CARE Score - Chair/[id number]-Udxqe Transfer 2 PT Assessment PT Assessment Pt presenting with increased fatigue and PT spends 30 mins with family trying to wake pt up. Pt vitals and O2 sats are within normal limits. MD and RN present and MD recommending CT scan due to hypoarousal. PT assisting pt back to bed with substantial A. When awake, pt with increased agitation pushing PT away and one instance of yelling very loudly at his family in addition to cursing. Patient Education: Education Documentation No documentation found. Education Comments No comments found. Goals: Encounter Goals Encounter Goals (Active) Pt will perform all bed mobility independently Start: 09/06/24 Expected End: 09/27/24 LTG: Pt will ambulate > 150 ft with SPV and LRAD Start: 09/06/24 Expected End: 09/27/24 STG: Assess gait as appropriate Start: 09/06/24 Expected End: 09/13/24 LTG: Pt will improve BBS to 36/56 to indicate decreased risk for falls Start: 09/06/24 Expected End: 09/27/24 STG: Pt will improve BBS to >13/56 to indicate decreased risk for falls (IE5/56, MDC 6.9 pts) Start: 09/06/24 Expected End: 09/13/24 Within 2 weeks of starting therapy, the patient and/or family/caregiver will demonstrate independence and be compliant in a written HEP in order to maximize gains made during therapy. Start: 09/06/24 Expected End: 09/27/24 LTG: Pt will perform stand step transfers with set-up assist and LRAD Start: 09/06/24 Expected End: 09/27/24 STG: Pt will perform stand step transfers with touch A and LRAD Start: 09/06/24 Expected End: 09/20/24 Thelma Cuevas PT [facility] * Mikayla Guadalupe, OT - 09/08/2024 9:00 AM MANAGER [employer] Treatment Session Note Patient Name: Chaitanya Tena Today's Date: 09/08/2024 Preferred Language: Tanzanian Assessment & Plan Assessment: OT Assessment: Pt demo'd agitation verbally and swatting with care. Pt required max to total A c self care and multiple tries for t/f to TIS after OT adjusted the angle to improve comfort. Pt indicated feeling okay, however required more assistance than notes indicated from yesterday. Plan: Treatment Plan/Goals Established with Patient/Caregiver: Yes Treatment Interventions: ADL retraining, Cognitive reorientation, Aquatic therapy, Compensatory technique education, Endurance training, Equipment evaluation/education, Functional transfer training, Fine motor coordination activities, Neuromuscular reeducation, Orthotic/Orthotic management, Patient/family training, Positioning, UE strengthening/ROM, Visual perceptual retraining OT Plan: Skilled OT OT Frequency: 5-7 times per week OT Planned Treatments: Work simplification, Discharge, Activities of Daily Living, Aquatics, Balance training, Caregiver training, Casting, Cognitive training, Coordination, Developmental skills training, Discharge/Discontinue OT treatment, Dry needling, Edema managment, Electric modalities, Energy conservation training, Equipment assessment, Equipment training, Group therapy, Home program, Joint protection, Manual therapy, Mobility training, Neuromuscular reeducation, Orthotic, Pain management, Patient education, Prevocational training, Safety education, Seating/Positioning, Sensory integration, Spasticity Managment, Splinting, Taping, Therapeutic activities, Therapeutic exercises, Thermal modalities, Visual and perceptual training OT Duration: 3-4 weeks Subjective Pain: Pain Assessment Pain Assessment: DVPRS (09/08/2024899) Pain Rating Scale (DVPRS): No pain (09/08/2024899) Vital Signs: Patient Vitals for the past 12 hrs: BP MAP (mmHg) Pulse Resp SpO2 09/08/24 1430 (!) 133/57 82 -- -- -- 09/08/24 1422 132/63 86 -- -- -- 09/08/24 1419 (!) 140/51 81 -- -- -- 09/08/24 1347 -- -- -- -- 97 % 09/08/24 1345 110/63 79 -- -- -- 09/08/24 1154 -- -- 77 16 95 % 09/08/24 1144 -- -- 76 16 93 % 09/08/24 1109 -- -- 77 -- 96 % 09/08/24 1109 (!) 122/50 74 -- -- -- 09/08/24 1108 -- -- 79 -- 90 % 09/08/24 0801 (!) 108/56 73 95 -- -- 09/08/24 0752 -- -- 83 16 98 % 09/08/24 0742 -- -- 82 16 96 % 09/08/24 0741 -- -- 82 16 96 % 09/08/24 0738 -- -- 85 -- 96 % 09/08/24 0737 (!) 116/56 76 -- -- -- No data found. Objective 09/08/24 0900 General Family/Caregiver Present No Time Calculation Start Time 0900 Stop Time 1000 Time Calculation (min) 60 min Pain Assessment Pain Assessment DVPRS Pain Rating Scale (DVPRS) 0 Cognitive-Linguistic Functioning Overall Cognitive Status Impaired Behavior/Cognition Agitated;Confused ADL UE Dressing Activity Component(s) Short sleeve shirt LE Dressing Activity Component(s) Pants Upper Body Dressing Dressing Location/Position In bed Level of Assistance Dependent Upper Body Dressing Assistance Needed Physical assistance Physical Assistance Level Total assistance CARE Score - Upper Body Dressing 1 Lower Body Dressing Dressing Location/Position In bed Level of Assistance Dependent Lower Body Dressing Assistance Needed Physical assistance Physical Assistance Level Total assistance CARE Score - Lower Body Dressing 1 Footwear Dressing Activity Component(s) Compression hose/stockings;Socks;Shoes Dressing Location/Position In bed Level of Assistance Dependent Putting On/Taking Off Footwear Assistance Needed Physical assistance Physical Assistance Level Total assistance CARE Score - Putting On/Taking Off Footwear 1 Toileting Activity Component(s) Managing clothing after;Managing incontinence hygiene/products Level of Assistance Dependent Toileting Position/Set Up In bed Toileting Hygiene Assistance Needed Physical assistance Physical Assistance Level Total assistance CARE Score - Toileting Hygiene 1 Bed Mobility 1 Level of Assistance 1 Substantial/Max assistance Bed Mobility To/From Roll left/right Assistive Devices And Adaptive Equipments Bed rail Bed Mobility 2 Level of Assistance 2 Substantial/Max assistance Bed Mobility To/From Supine to sit on EOB Assistive Devices And Adaptive Equipments Bed rail Transfers Transfer Yes Transfer 1 Technique 1 Stand pivot Level of Assistance 1 Substantial/Max assistance Trials/Comments 1 Pt pushing, resisting during t/f Transfer To/From Wheelchair;Bed Assistive Devices And Adaptive Equipments No device Therapeutic Activity Therapeutic Activity 1 Ball toss to and from therapist addressing vision/scanning, and functional use BUE for 10 minutes while seated in TIS. OT Assessment OT Assessment Pt demo'd agitation verbally and swatting with care. Pt required max to total A c self care and multiple tries for t/f to TIS after OT adjusted the angle to improve comfort. Pt indicated feeling okay, however required more assistance than notes indicated from yesterday. Patient Education: Education Documentation No documentation found. Education Comments No comments found. Goals: Encounter Goals Encounter Goals (Active) Patient will perform grooming with minimum assist for improved independence with ADLs Start: 09/06/24 Expected End: 09/27/24 Patient will perform feeding with minimum assist for improved independence with ADLs Start: 09/06/24 Expected End: 09/27/24 Patient will perform upper body dressing with minimum assist to improve independence with dressing. Start: 09/06/24 Expected End: 09/27/24 Patient will perform lower body dressing with moderate assist to improve independence with dressing. Start: 09/06/24 Expected End: 09/27/24 Pt and/or caregiver(s) will have all appropriate DME, recommendations, or completed prescriptions to maximize pt's safety and independence at discharge. Start: 09/06/24 Expected End: 09/27/24 Patient and/or caregivers will verbalize understanding of home program including safety tips, equipment instructions, and home exercises. Start: 09/06/24 Expected End: 09/27/24 Patient will participate in forced use activities using the affected upper extremity with minimum assistance to inhibit abnormal movement patterns. Start: 09/06/24 Expected End: 09/27/24 Patient will incoporate their affected upper extremity with minimal assist/cues during functional task performance. Start: 09/06/24 Expected End: 09/27/24 Patient assessment the need for fabrication and wearing of left UE resting for spasticity management Start: 09/06/24 Expected End: 09/27/24 Patient will participate in seating and mobility trials to improve posture, reduce tone, and prevent secondary complications. Start: 09/06/24 Expected End: 09/27/24 Mikayla Guadalupe OT [facility] * Kandace Fregoso, 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 - 09/08/2024 8:00 AM MANAGER [facility]IRELESS Treatment Session Note Patient Name: Chaitanya Tena Today's Date: 09/08/2024 Preferred Language: [place]anian Assessment & Plan Assessment: Assessment Comments: Pt received upright in bed in room, awake. Therapy session targeted orientation, immediate recall, left attention, and PO trials. Additionally, hearing screening completed with pt demonstrating inability to hear frequencies of 500, 1000, 2000, and 4000 Hz bilaterally below 50 dB. Recommend f/u with senior behavioral scientist and trial amplification device. Plan: Treatment Plan/Goals Established with Patient/Caregiver: Yes Treatment/Interventions: Cognitive communication functioning, Executive functioning, Swallow function Frequency: 5-7 days per week Duration: 2 weeks NPO: No Swallow Precautions: Remain upright after meals 30 minutes, Feed only when alert, Alternate liquids/solids, Upright to 90 degrees Solid Consistency: Pureed Liquid Viscosity: Thin Liquids Carbonated Liquids Only: No Medications: Crushed in puree with MD approval Supervision Recommended: 1:1 Compensatory Strategies for Dysphagia: Slow rate, Small bites/sips, Alternate solids and liquids, Position as upright as possible during oral intake Therapeutic Recommendations: Dysphagia tx, Trials with [employer]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 Subjective Pain: Pain Assessment Pain Assessment: DVPRS (09/08/2024799) Pain Score: 0 (09/08/2024799) Pain Rating Scale (DVPRS): No pain (09/08/2024799) Vital Signs: Patient Vitals for the past 12 hrs: BP MAP (mmHg) Pulse Resp SpO2 09/08/24 0801 (!) 108/56 73 95 -- -- 09/08/24 0752 -- -- 83 16 98 % 09/08/24 0742 -- -- 82 16 96 % 09/08/24 0741 -- -- 82 16 96 % 09/08/24 0738 -- -- 85 -- 96 % 09/08/24 0737 (!) 116/56 76 -- -- -- No data found. Objective 09/08/24 08 Time Calculation Start Time 0800 Stop Time 0900 Time Calculation (min) 60 min Session Information Location Bedside Environmental Stimulation Moderate Patient Effort and Participation Good Purpose/Target Impairment Factors Influencing Session Cognition Confusion;Inattention;Unawareness, deficits Sensory Low hearing Pain Assessment Pain Assessment DVPRS Pain Score 0 Pain Rating Scale (DVPRS) 0 Swallow Swallow Treatment Time 15 Swallowing Activity Component(s) PO Trials Additional Explanation: Activity Pt participated in PO trials of minced and moist and soft and bite sized without dentures in place (2/2 refusal). Pt with prolonged mastication and moderate diffuse oral residue which cleared with additional dry swallows and liquid wash. No throat clearing or coughing noted. Level of Assistance Moderate assist Cue/Prompt Type Verbal;Tactile Cue/Prompt Intensity Moderate Compensatory Strategy Training [specific strategy] additional dry swallow, liquid wash Situation Stand Alone Activity Attention Attention Skill(s) [specify if applicable; eg, sustained] Attention-visual Task Employed Other (during eating and conversation) Level of Task Difficulty Basic Level of Assistance Maximal prompting Cue/Prompt Type Verbal;Tactile Cue/Prompt Intensity Maximum Situation During or as therapeutic activity;During social communication Orientation Activity Component(s) Self/Autobiographical;Place;Time;Situation/Etiology/Injury Additional Explanation: Activity Pt independently oriented to self. Utilized logical cueing, choices in f/2, and errorless learning to review remaining concepts with limited carryover. Level of Assistance Maximal prompting Cue/Prompt Type Multimodal Cue/Prompt Intensity Maximum Compensatory Strategy Training [specify strategy] external aids Situation Stand alone activity Memory Memory Skill(s) [specify if applicable; eg, STM, LTM] Short term Task Employed Other (recall instructions to raise hand when hear tone during hearing screening) Level of Task Difficulty Basic Level of Assistance Moderate prompting Cue/Prompt Type Verbal Cue/Prompt Intensity Moderate Situation During or as therapeutic activity Additional Explanation: Adaptive Equipment/Supplies audiometer Memory Score Recognizes, Remembers Routines, and Executes Requests Without Prompting No Remembers and Executes Requests With Prompting Patient recognizes and remembers less than 25% of the time, or does not effectively recognize and remember Functional [place] Measure Memory Maximal prompting - 2 [employer]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 Assessment Assessment Comments Pt received upright in bed in room, awake. Therapy session targeted orientation, immediate recall, left attention, and PO trials. Additionally, hearing screening completed with pt demonstrating inability to hear frequencies of 500, 1000, 2000, and 4000 Hz bilaterally below 50 dB. Recommend f/u with senior behavioral scientist and trial amplification device. Patient Education: Education Documentation No documentation found. Education Comments No comments found. Goals: Encounter Goals Encounter Goals (Active) LTG - Patient will participate in ongoing diagnostic assessments to determine plan of care Start: 09/06/24 Expected End: 09/28/24 STG - Patient will participate in ongoing diagnostic assessments to determine plan of care Start: 09/06/24 Expected End: 09/28/24 Kandace Fregoso CCC-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 [facility] * Bernadette Norton MD - 09/07/2024 10:23 PM MANAGER [facility] Physical Medicine & Rehabilitation Daily Progress Note Code status: Full Code Current diet: Adult Diet Dysphagia; 0 - Thin Liquids; 4 - Pureed (Dysphagia Pureed); No concentrated sweets; 1:1 Feeding Isolation: No active isolations Allergies: Patient has no known allergies. Subjective: No events report last night by nursing. Pain is controlled Objective: Sleep hours logged Nighttime Sleep Hours: 11 hrs Last Bowel Movement: Last BM Date: 09/07/24 Stool Color: Brown Stool Appearance: Soft Stool Amount: Medium Bowel Incontinence: Yes Bowel Elimination Assistance Level: Assistive equipment and person Labs Lab Results Component Value Date WBC 11.57 (H) 09/06/2024 Hgb 12.3 (L) 09/06/2024 Hct 40.3 09/06/2024 Plt Count 366 09/06/2024 Cholesterol 149 08/19/2024 Triglycerides 83 08/19/2024 HDL Cholesterol 46.4 08/19/2024 ALT 21 08/31/2024 AST 37 08/31/2024 Sodium Lvl 142 09/05/2024 Potassium Lvl 4.1 09/05/2024 Chloride Lvl 105 09/05/2024 Creatinine Lvl 1.08 09/05/2024 BUN 27 (H) 09/05/2024 CO2 Lvl 28.4 09/05/2024 INR 0.95 08/19/2024 Hgb A1C 9.40 (H) 08/19/2024 Vitals Vitals: 09/07/24 1811 09/07/24200909/07/24203709/07/242047 BP: (!) 127/56 (P) 141/66 Pulse: 88 (P) 93 89 85 Resp: 18 18 Temp: (P) 36.7 ?C (98 ?F) SpO2: 96% 98% 24 Hr Tmax: Temp (24hrs), Av.7 ?C (98.1 ?F), Min:36.7 ?C (98 ?F), Max:36.8 ?C (98.2 ?F) Latest Weight: 81.5 kg (179 lb 10.8 oz) Intake & Output Intake/Output Summary (Last 24 hours) at 09/07/20242222 Last data filed at 09/07/2024 1755 Gross per 24 hour Intake -- Output 1 ml Net -1 ml I/O last 3 completed shifts: In: - (0 mL/kg) Out: 1 (0 mL/kg) [Urine:1 (0 mL/kg/hr)] Weight: 81.5 kg No intake/output data recorded. Medications amLODIPine, 10 mg, Oral, Daily aspirin, 324 mg, Nasogastric, Daily atorvastatin, 80 mg, Oral, Daily Boost Glucose Control, 1 Container, Oral, TID with meals caffeine, 100 mg, Oral, Daily clopidogrel, 75 mg, Nasogastric, Daily Docusate Sodium, 100 mg, Per G Tube, q12h heparin, 5,000 Units, Subcutaneous, q8h insulin glargine, 30 Units, Subcutaneous, Every evening insulin lispro, 8 Units, Subcutaneous, TID with meals ipratropium-albuterol, 3 mL, Nebulization, q6h losartan, 75 mg, Oral, Daily melatonin, 3 mg, Per G Tube, Nightly mirtazapine, 7.5 mg, Oral, Nightly modafinil, 100 mg, Oral, Daily polyethylene glycol (PEG) 3350, 17 g, Per G Tube, q12h sennosides, 1 tablet, Oral, Nightly PRN medications: bisacodyl, dextrose, glucagon, insulin lispro, levETIRAcetam, magnesium hydroxide, midazolam, sodium chloride Physical Exam:General: in no distress HEENT: moist mucous membranes CV: no peripheral cyanosis Pulm: normal respiratory effort GI: non-distended abdomen Derm: no rashes or ulcers in areas examed Psych: calm, cooperative DIAGNOSES & PROBLEMSPrincipal Problem: 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 male with hx of prior ischemic stroke w/ no residual deficits, HTN, DM2, lung cancer (last treatment 2021) who presented to [facility] on 08/19 w/ left sided weakness and neglect, found to have R MCA stroke s/p TNK and endovascular thrombectomy on 08/19 with subsequent improvement in strength and mentation. Mild hemorrhagic conversion. Acute care course c/b CAP s/p completion of abx on 08/28/24 Right middle cerebral artery strokeStable neurologic status; admission imaging did show some minimal hemorrhagic conversion Continued on dual antiplatelet therapy for 21 days followed by aspirin monotherapy. Continued on atorvastatin. Left hemiparesisOngoing work on neuromuscular education Cognitive deficitsSevere; arousal is the most problematic at this time Continued on caffeine and modafinil; likely increased modafinil in the coming days Gait abnormalityOngoing work on independence in mobility with physical and Occupational Therapy DysarthriaOngoing work on articulation strategies speech-language pathology HypertensionBlood pressure is controlled on current dosages of amlodipine and losartan HyperglycemiaContinued on long-acting glargine as well as Premeal insulin Blood glucoses are still variable; ongoing adjustments from internal medicine Sleep dysfunctionContinue scheduled melatonin and mirtazapine Neurogenic bowelMonitor for constipation on docusate, senna, and MiraLAX Neurogenic bladderVoiding spontaneously; work on continence through time voids MalnutritionDietitian following closely; continued on diabetic supplements DVT prophylaxisContinue on subcutaneous heparin CODE STATUS: Full Disposition:To home with assistance from family within 2 weeks Follow-up:[place] neurolog[facility] within 2 weeks of discharge Primary care provider within 2 weeks of discharge FRANDY SanzSO#[id number] [facility] * Tere Springer CCC-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 - 09/07/2024 3:11 PM MANAGER WIRELESS Speech-Language Pathology Treatment Session Note Patient Name: Chaitanya Tena Today's Date: 09/07/2024 Preferred Language: Tanzanian 09/07/24 1400 Time Calculation Start Time 1410 Stop Time 1500 Time Calculation (min) 50 min General Amount of Missed Time (min) 10 Minutes Missed Time Reason Other (Comment) ([employer]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 Pt observed with a moderately prolonged oral phase requiring cues to help pt clear oral cavity of residue. Pt required 3-5 swallows and a liquid wash per bite to assist in complete oral clearance. No s/sx of aspiration observed. Goals: Encounter Goals Encounter Goals (Active) LTG - Patient will participate in ongoing diagnostic assessments to determine plan of care Start: 09/06/24 Expected End: 09/28/24 STG - Patient will participate in ongoing diagnostic assessments to determine plan of care Start: 09/06/24 Expected End: 09/28/24 Tere Springer CCC-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 [facility] [facility] * Rosemarie Meyer MD - 09/07/2024 11:31 AM MANAGER WIRELESS [facility] [place] Hospitalist Consult Progress Note Subjective Nursing reported low BG today morning and need to give orange juice Patient is on 1:1 feedings Objective Vitals: 09/07/24 0617 09/07/24 0716 09/07/24 0900 09/07/24 1123 BP: 140/61 (!) 142/58 (!) 84/58 Pulse: 81 93 95 100 Resp: 18 20 Temp: 36.8 ?C (98.2 ?F) SpO2: 98% Physical exam Patient is not in acute distress HEENT - Oral mucosa moist Pupils equally reacting to light bilaterally No jugular venous distention neck is supple No obvious lymphadenopathy CVS- s2 s2 normal , No murmur RS-decreased air entry bilaterally PA-Soft and Non tender , Bowel sounds present , No guarding or rigidity 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 able to communicate, left-sided weakness Musculoskeletal -Normal range of motion Extremities- minimal left leg swelling Skin - warm and No rashes Current Active Medications amLODIPine, 10 mg, Oral, Daily aspirin, 324 mg, Nasogastric, Daily atorvastatin, 80 mg, Oral, Daily caffeine, 100 mg, Oral, Daily clopidogrel, 75 mg, Nasogastric, Daily Docusate Sodium, 100 mg, Per G Tube, q12h Ensure Enlive, 1 Container, Oral, TID with meals heparin, 5,000 Units, Subcutaneous, q8h insulin glargine, 30 Units, Subcutaneous, Every evening insulin lispro, 8 Units, Subcutaneous, TID with meals ipratropium-albuterol, 3 mL, Nebulization, q6h losartan, 75 mg, Oral, Daily melatonin, 3 mg, Per G Tube, Nightly mirtazapine, 7.5 mg, Oral, Nightly modafinil, 100 mg, Oral, Daily polyethylene glycol (PEG) 3350, 17 g, Per G Tube, q12h sennosides, 1 tablet, Oral, Nightly PRN medications: bisacodyl, dextrose, glucagon, insulin lispro, levETIRAcetam, magnesium hydroxide, midazolam, sodium chloride Imaging:US lower extremity venous doppler bilateral This is a placeholder exam used for study with no Radiologist read. Lab ResultsResults from last 7 days Lab Units 09/06/24 0450 09/05/24 0415 09/04/24 0312 WBC 10*3/uL 11.57* 10.36* 9.76 HEMOGLOBIN g/dL 12.3* 12.0* 12.4 HEMATOCRIT % 40.3 38.6 39.9 PLATELETS 10*3/uL 366 369 360 Results from last 7 daysLab Units 09/07/24 0901 09/05/24 0837 09/05/24 0239 09/04/24 0614 09/04/24 0312 09/03/24 0723 09/03/24 0239 SODIUM mEq/L -- -- 142 -- 142 -- 139 POTASSIUM mEq/L -- -- 4.1 -- 3.9 -- 4.4 CHLORIDE mEq/L -- -- 105 -- 104 -- 102 CO2 mEq/L -- -- 28.4 -- 30.1 -- 29.5 BUN mg/dL -- -- 27* -- 24* -- 21 CREATININE mg/dL -- -- 1.08 -- 1.05 -- 1.12 GLUCOSE mg/dL -- -- 138* -- 59* -- 195* POC GLUCOSE mg/dL 211* < > -- < > -- < > -- CALCIUM mg/dL -- -- 9.4 -- 9.6 -- 9.4 < > = values in this interval not displayed. Micro:Susceptibility data from last 90 days. 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 Hospital course was complicated by pneumonia which was treated with antibiotics. Antibiotics were completed on 08/28. Now patient is transferred here for comprehensive rehab. Acute CVA-Right MCA CVA on 08/19 status post TNK and endovascular thrombectomy on 08/19 -MRI consistent with right MCA infarct DAPT with aspirin and Plavix for 21 days and aspirin lifelong thereafter -Per neurology etiology of stroke was embolic stroke of undetermined source -Comprehensive rehab per primary team Hypoxic respiratory failure-Patient was recently treated for pneumonia, completed antibiotic on 08/28 -X-ray chest- no new infiltrate -Continue to monitor clinical course -ultrasound of extremities pending read Dysphagia-Continue dysphagia diet with 1:1 feeding Hypertension-Continue amlodipine 10 mg p.o. daily, losartan 75 mg daily -Monitor blood pressure Type 2 diabetes-Hemoglobin A1c is 9.4 -Continue Lantus 30 units and Lispro TID 8 units - with meal as patient is 1:1 Feed -continue SSI -will closely monitor BG Adult Diet Dysphagia; 0 - Thin Liquids; 4 - Pureed (Dysphagia Pureed); No concentrated sweets; 1:1 Feeding VTE prophylaxis: heparin - 5000 units/mL Disposition: Per primary team Hospitalist service is consulting service, please use secure chat for any questions or concerns Thank you for consulting [place] hospitalist Rosemarie Meyer MD Mortgage Loan Processing Clerk, Hospitalist Division [facility] [place] GER [employer] * Thelma Cuevas, PT - 09/07/2024 11:00 AM MANAGER WIRELESS Treatment Session Note Patient Name: Chaitanya Tena Today's Date: 09/07/2024 Preferred Language: Tanzanian Assessment & Plan Assessment: PT Assessment: Due to pt presenting with very low BP (85/54 mm Hg). Session is spent trialing equipment and tilt in [facility] to promote safe BP in sitting. See Therapeutic Activity section. Plan: Treatment Plan/Goals Established with Patient/Caregiver: Yes PT Frequency: 60-90 minutes per day PT Planned Treatment: Age appropriate play, Aquatic therapy, Assistive technology, Balance training, Basic activities of daily living, Bed mobility training, Body weight support treadmill training, Caregiver training, Community/Work reintegration, Compression wrapping, Desensitization program, Developmental skills training, Edema management, Electric modalities, Equipment training, Gait training, Group therapy, Home assessment/modification, Manual therapy, Mechanical modalities, Neuromuscular reeducation, Orthotic training, Pain management, Patient education, Positioning, Posture/Body mechanics training, Robotic assisted walking therapy, Spasticity Management, Seating, Stair training, Taping, Therapeutic activities, Therapeutic exercises, Thermal/Light modalities, Transfer training Duration: 3-4 weeks Subjective Pt received sitting in [facility] with eyes closed due to having some moisture coming out of eyes. RN assists pt with cleaning eyes. Pt left seated in [facility] with mahogany monroy and ab zuniga donned. PCT in room with pt and informed of low BP during therapy. Family also in room with pt. Pain: Pain Assessment Pain Assessment: DVPRS (09/07/2024 1100) Pain Score: 0 (09/07/2024 1100) Pain Rating Scale (DVPRS): No pain (09/07/2024 1100) Vital Signs: Patient Vitals for the past 12 hrs: BP MAP (mmHg) Pulse Resp SpO2 09/07/24 1123 (!) 84/58 -- 100 -- -- 09/07/24 0900 (!) 142/58 86 95 -- -- 09/07/24 0716 140/61 87 93 20 -- 09/07/24 0617 -- -- 81 18 98 % 09/07/24 0608 -- -- 83 16 95 % 09/07/24 0256 -- -- 87 16 98 % 09/07/24 0246 -- -- 81 16 96 % No data found. Objective 09/07/24 1100 General Amount of Missed Time (min) 10 Minutes Missed Time Reason Other (Comment) (RN cleaning pt eyes) Family/Caregiver Present Yes Others Present Daughter, son in law, granddaughter Time Calculation Start Time 1110 Stop Time 1200 Time Calculation (min) 50 min Pain Assessment Pain Assessment DVPRS Pain Score 0 Pain Rating Scale (DVPRS) 0 Therapeutic Activity Therapeutic Activity Time Entry 50 Therapeutic Activity 1 Session focused on BP management. PT finds pt BP sitting in chair to be 85/54 mm Hg. PT brings pt back up to unit to notify RN. With pt tilted back, BP returns to 130/50 mm Hg. PT takes pt to third floor therapy gym in order to find proper tilt position and equipment needed to promote safe BP with pt sitting up. With mahogany hose and ab binder, BP returns to 115/58 mm Hg. Family and pt educated on low BP and needing ab binder and mahogany hose to assist with this. Family also taught how to tilt chair back. PT Assessment PT Assessment Due to pt presenting with very low BP (85/54 mm Hg). Session is spent trialing equipment and tilt in [facility] to promote safe BP in sitting. See Therapeutic Activity section. Patient Education: Education Documentation Other Physical Therapy Education Topics, taught by Thelma Cuevas PT at 09/07/2024 12:26 PM. Learner: Family, Patient Readiness: Acceptance Method: Explanation Response: Verbalizes Understanding, Needs Reinforcement Comment: Pt and family educated on purpose of mahogany hose and ab binder due to low BP. Family shown how to tilt pt back in chair. Education Comments No comments found. Goals: Encounter Goals Encounter Goals (Active) Pt will perform all bed mobility independently Start: 09/06/24 Expected End: 09/27/24 LTG: Pt will ambulate > 150 ft with SPV and LRAD Start: 09/06/24 Expected End: 09/27/24 STG: Assess gait as appropriate Start: 09/06/24 Expected End: 09/13/24 LTG: Pt will improve BBS to 36/56 to indicate decreased risk for falls Start: 09/06/24 Expected End: 09/27/24 STG: Pt will improve BBS to >13/56 to indicate decreased risk for falls (IE5/56, MDC 6.9 pts) Start: 09/06/24 Expected End: 01/01/25 Within 2 weeks of starting therapy, the patient and/or family/caregiver will demonstrate independence and be compliant in a written HEP in order to maximize gains made during therapy. Start: 09/06/24 Expected End: 09/27/24 LTG: Pt will perform stand step transfers with set-up assist and LRAD Start: 09/06/24 Expected End: 09/27/24 STG: Pt will perform stand step transfers with touch A and LRAD Start: 09/06/24 Expected End: 09/20/24 Thelma Cuevas PT GER [employer] * Hina Gaines, OT - 09/07/2024 10:15 AM MANAGER WIRELESS Occupational Therapy Treatment Session Note Patient Name: Chaitanya Tena Today's Date: 09/08/2024 Preferred Language: Tanzanian Assessment & Plan Assessment: Plan: Treatment Plan/Goals Established with Patient/Caregiver: Yes Treatment Interventions: ADL retraining, Cognitive reorientation, Aquatic therapy, Compensatory technique education, Endurance training, Equipment evaluation/education, Functional transfer training, Fine motor coordination activities, Neuromuscular reeducation, Orthotic/Orthotic management, Patient/family training, Positioning, UE strengthening/ROM, Visual perceptual retraining OT Plan: Skilled OT OT Frequency: 5-7 times per week OT Planned Treatments: Work simplification, Discharge, Activities of Daily Living, Aquatics, Balance training, Caregiver training, Casting, Cognitive training, Coordination, Developmental skills training, Discharge/Discontinue OT treatment, Dry needling, Edema managment, Electric modalities, Energy conservation training, Equipment assessment, Equipment training, Group therapy, Home program, Joint protection, Manual therapy, Mobility training, Neuromuscular reeducation, Orthotic, Pain management, Patient education, Prevocational training, Safety education, Seating/Positioning, Sensory integration, Spasticity Managment, Splinting, Taping, Therapeutic activities, Therapeutic exercises, Thermal modalities, Visual and perceptual training OT Duration: 3-4 weeks Subjective Pain: See flowsheet below Vital Signs:Patient Vitals for the past 12 hrs: BP MAP (mmHg) Pulse Resp SpO2 09/08/24 1430 (!) 133/57 82 -- -- -- 09/08/24 1422 132/63 86 -- -- -- 09/08/24 1419 (!) 140/51 81 -- -- -- 09/08/24 1347 -- -- -- -- 97 % 09/08/24 1345 110/63 79 -- -- -- 09/08/24 1154 -- -- 77 16 95 % 09/08/24 1144 -- -- 76 16 93 % 09/08/24 1109 -- -- 77 -- 96 % 09/08/24 1109 (!) 122/50 74 -- -- -- 09/08/24 1108 -- -- 79 -- 90 % 09/08/24 0801 (!) 108/56 73 95 -- -- 09/08/24 0752 -- -- 83 16 98 % 09/08/24 0742 -- -- 82 16 96 % 09/08/24 0741 -- -- 82 16 96 % 09/08/24 0738 -- -- 85 -- 96 % 09/08/24 0737 (!) 116/56 76 -- -- -- No data found. Objective 09/07/24 1015General Amount of Missed Time (min) 25 Minutes Missed Treatment Reason Xray;Other (Comment);Patient unwilling to participate;Increased agitation (10 minutes missed at end of session due to pt refusal) Family/Caregiver Present No Pain Assessment Pain Assessment DVPRS Pain Score 0 Pain Rating Scale (DVPRS) 0 David-Cano FACES Pain Rating 0 ADL UE Dressing Activity Component(s) Short sleeve shirt LE Dressing Activity Component(s) Pants Upper Body Dressing Dressing Location/Position Sitting edge of bed Level of Assistance Substantial/Max assistance Upper Body Dressing Assistance Needed Physical assistance Physical Assistance Level 76% or more CARE Score - Upper Body Dressing 2 Lower Body Dressing Dressing Location/Position In bed Level of Assistance Dependent Lower Body Dressing Assistance Needed Physical assistance Physical Assistance Level Total assistance CARE Score - Lower Body Dressing 1 Therapeutic Procedures Time Entry Therapeutic Activity Time Entry 35 Therapeutic Activity Therapeutic Activity 1 Pt met in room, with transport bringing back from scan, transferring pt back to bed. Pt asleep upon OT arrival with eyes closed supine in bed. OT attempting to wake pt with pt verbalizing however with no eye opening. TURBO GENERATOR OILER arrived to assist OT. OT performed ADLs with pt LBD in bed to clothing found in closet. Pt able to lift BLEs to command however continuing to require total A for LBD and rolling R/L. OT and TURBO GENERATOR OILER transitioned pt to sitting EOB and performed Max A x 2 bed>TIS t/f. RN notified of pt with limited eye opening with pt stating they felt hard to oen. RN to assess pt and notify MD. Pt left in TIS at end of session, all needs met, telemoniter in place. Goals:Encounter Goals Encounter Goals (Active) Patient will perform grooming with minimum assist for improved independencewith ADLs Start: 09/06/24 Expected End: 09/27/24 Patient will perform feeding with minimum assist for improved independence with ADLs Start: 09/06/24 Expected End: 09/27/24 Patient will perform upper body dressing with minimum assist to improve independence with dressing. Start: 09/06/24 Expected End: 09/27/24 Patient will perform lower body dressing with moderate assist to improve independence with dressing. Start: 09/06/24 Expected End: 09/27/24 Pt and/or caregiver(s) will have all appropriate DME, recommendations, or completed prescriptions to maximize pt's safety and independence at discharge. Start: 09/06/24 Expected End: 09/27/24 Patient and/or caregivers will verbalize understanding of home program including safety tips, equipment instructions, and home exercises. Start: 09/06/24 Expected End: 09/27/24 Patient will participate in forced use activities using the affected upper extremity with minimum assistance to inhibit abnormal movement patterns. Start: 09/06/24 Expected End: 09/27/24 Patient will incoporate their affected upper extremity with minimal assist/cues during functional task performance. Start: 09/06/24 Expected End: 09/27/24 Patient assessment the need for fabrication and wearing of left UE resting for spasticity management Start: 09/06/24 Expected End: 09/27/24 Patient will participate in seating and mobility trials to improve posture, reduce tone, and prevent secondary complications. Start: 09/06/24 Expected End: 09/27/24 Hina Gaines OT GER [employer] * Anupama Last CCC-[employer]OC[employer]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 - 09/06/2024 12:05 PM MANAGER WIRELESS Speech-Language Pathology Evaluation/Treatment Note Patient Name: Chaitanya Tena Today's Date: 09/06/2024 Preferred Language: Tanzanian Assessment & Plan 09/06/24 1205 Time Calculation Start Time 1205 Stop Time 1255 Time Calculation (min) 50 min General Patient Medical History Reviewed Yes Family/Caregiver Present Yes Others Present Daughter, Orlin; grandsonMichael Pain Assessment Pain Assessment 0-10 Pain Score 0 Pain Rating Scale (DVPRS) 0 Clinical Progression Not changed Oral/Motor Dentition Edentulous Face Impaired Face Symmetry Impaired Facial ROM Impaired Jaw Impaired Jaw ROM Impaired Jaw Coordination Impaired Lips Impaired Lips Symmetry Impaired Lips ROM Impaired Lips Coordination Impaired Lips Strength Impaired Lips Speed Impaired Tongue Impaired Tongue ROM WFL Tongue Speed Impaired Larynx Impaired Larynx Voice Quality Impaired Larynx Voice Intensity Impaired Larynx Volitional Cough Impaired Involuntary Muscular Movement Absent Breath Support Respiratory Status Room air Tracheostomy Tracheostomy No Consistencies Assessed Consistencies Assessed Yes Swallowing Overview - Liquids 0 - Thin Liquid WFL Swallowing Overview - Solids 4 - Pureed WFL Clinical Swallow Evaluation Patient Positioning In a wheelchair;Upright Previous History of Dysphagia? Yes Inability to Follow One Step Directions? No Tracheostomy Present No Inability to Manage Their Secretions? No Incomplete Lingual ROM? No Incomplete Facial Symmetry (Facial Droop)? Yes Voice Change During Swallowing Trials? No Abnormal/Weak Volitional Cough? Yes Cough/Throat Clear w/ Trial Consistency? No Dysphonia (Quality and/or Pitch Change)? No Motor Speech Disorder (Dysarthria/Apraxia)? Yes Apraxia of the Swallow Suspected? No Delayed Swallow Suspected? No Multiple Swallows Per Bolus Suspected? No Tongue Pumping Suspected? No Clinical Swallow Evaluation Comments Pt admitted with a diet order of puree/thin liquids. Pt participated in instrumental swallow assessment at previous level of care (FEES completed 08/24/24, MBS performed 08/29/24). During MBS he was noted with moderate-severe oropharyngeal dysphagia with significant delay. At that time, swallowing efficiency was judged to be exacerbated by cognitive deficits and reduced RAVI. He later advanced to puree/thin liquids on 09/02 during bedside PO trials/evaluation. See documentation in EMR for more details. Pt and daughter deny difficulty with meals. Today, pt was observed at bedside during lunch meal during which he exhibited adequate oral acceptance of thin liquid by edge of cup and straw sip and puree via 1/2 to full tsp. Pt noted with mild L anterior spillage of bolus. He benefitted from cues to complete additional swallow to clear oral residue. Thin liquid was further assisted with clearance. No overt s/sx aspiration noted. Solids were not trialed this date 2/2 pt declining to wear denture plates. Continue current diet. Intelligibility Intelligibility X Spontaneously Produced Words Impaired Spontaneously Produced Phrases Impaired Spontaneously Produced Sentences Impaired Conversational Speech Impaired Intelligibility Comments Moderately reduced consonant precision observed. Endentulous status further impacted speech intelligibility; pt noted to be approx. 60-70% intelligible when the context was known. Of note, pt speaks with residual childhood Rosa Gaeilge/Gaelic accent which results in phonemic differences, which are not considered disordered. Voice Respiration Characteristics of Voice Poor duration during phonation Following Directions Follows one step commands WFL Follows two step commands Impaired Comprehension Simple Yes/No Questions WFL Complex Yes/No Questions Impaired Comprehension Comments Mild auditory comprehension deficits noted. Pt benefits from various communication strategies and techniques to improve responses to and comprehension of orally presented information. Cognitive deficits and hearing impairment are often barriers. Auditory Comprehension Effective Techniques Effective Techniques Increased volume;Repetition;Slowed speech;Stressing words Reading Comprehension Reading Status X Words WFL Reading Comprehension Comments Pt demonstrates word identification and oral reading of words. However. L neglect impacts visual attention to most reading tasks. Verbal Expression Primary Mode of Expression Verbal Responsive Naming Impaired Conversation Impaired Picture Description Impaired Verbal Organization Impaired Thought Formulation Impaired Verbal Expression Comments Mild-moderate verbal expression deficits noted, which are likely a result of cognitive deficits. Pt benefitted from increased time for word finding. Reduced topic maintenance noted in conversation. Yet, he is able to communicate immediate wants/needs. Written Expression Hand Dominance Right Hand Used Right Writing Personal Information Impaired Written Expression Comments With the context known, pt's writing of name was 40-60% legible. Cognitive-Linguistic Functioning Overall Cognitive Status Impaired Behavior/Cognition Confused;Distractible Arousal/Alertness Delayed responses to stimuli Orientation Level Disoriented to time;Disoriented to place Following Commands Follows 1 step commands with increased time Memory Decreased recall of biographical information;Decreased recall of current events Executive Functions Difficulty with cognitive endurance;Difficulty with information processing Cognitive-Linguistic Functioning Comments Moderate-severe cognitive deficits noted as assessment of abilties remains ongoing. Pt with tele-monitor for 24-hour supervision to maintain safety when in room. Left neglect observed within environment an across reading task. Pragmatic Behaviors Affect/Facial Expression Impaired Prosody Impaired Eye Contact Impaired Topic Maintenance Impaired Comprehension Score Comprehends Complex or Abstract Information Without Prompting or Cueing No Mode of Comprehension Auditory Understands Directions and Conversations About Daily Needs Patient understand directions and conversation about basic daily needs 50% to 74% of the time Functional Bourbon Measure Comprehension Moderate prompting - 3 Expression Score Expresses Complex or Abstract Information Without Prompting or Cueing No Expression Mode Vocal Expresses Basic Daily Needs and Ideas Patient expresses basic daily needs and ideas 50% to 74% of the time Functional Bourbon Measure Expression Moderate prompting - 3 Social Interaction Score Interacts Appropriately Without Supervision No Appropriate in Social Situations Patient interacts appropriately 25% to 49% of the time, but may need restraint due to socially inappropriate behaviors Functional Bourbon Measure Social Interaction Maximal prompting - 2 Problem Solving Score Solves Complex Problems No Solves Routine Problems Patient solves routine problems 25% to 49% of the time, needs direction more than half the time to initiate, plan, or complete simple daily activities, and may need restraint for safety Functional Bourbon Measure Problem Solving Maximal prompting - 2 Memory Score Recognizes, Remembers Routines, and Executes Requests Without Prompting No Remembers and Executes Requests With Prompting Patient recognizes and remembers 25% to 49% of the time, and needs prompting more than half the time Functional Bourbon Measure Memory Maximal prompting - 2 Hearing, Speech, and Vision Ability to Hear Minimal difficulty Ability to See in Adequate Light Impaired Expression of Ideas and Wants Some difficulty Understanding Verbal and Non-Verbal Content Sometimes understands Cognitive Pattern Assessment Cognitive Pattern Assessment Used BIMS Brief Interview for Mental Status (BIMS) Repetition of Three Words (First Attempt) 3 Temporal Orientation: Year Missed by more than 5 years Temporal Orientation: Month Missed by 6 days to 1 month Temporal Orientation: Day Incorrect Recall: "Sock" Yes, no cue required Recall: "Blue" Yes, no cue required Recall: "Bed" Yes, no cue required BIMS Summary Score 10 Confusion Assessment Method (CAM) Is there evidence of an acute change in mental status from the patient's baseline? No Inattention Behavior not present Disorganized thinking Behavior not present Altered level of consciousness Behavior not present [employer]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 Assessment [employer]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 Assessment Results Swallowing impairment;Executive function deficit;Expression deficit;Speech impairment;Memory deficit;Problem solving deficit;Safety/judgment deficit Prognosis Good Session Tolerance Patient limited by fatigue Strengths Support of extended family/friends [employer]OCAD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 Plan Treatment Plan/Goals Established with Patient/Caregiver Yes Treatment/Interventions Cognitive communication functioning;Executive functioning;Swallow function Frequency 5-7 days per week Duration 2 weeks NPO No Swallow Precautions Remain upright after meals 30 minutes;Feed only when alert;Alternate liquids/solids;Upright to 90 degrees Solid Consistency Pureed Liquid Viscosity Thin Liquids Carbonated Liquids Only No Medications Crushed in puree with MD approval Supervision Recommended 1:1 Compensatory Strategies for Dysphagia Slow rate;Small bites/sips;Alternate solids and liquids;Position as upright as possible during oral intake Therapeutic Recommendations Dysphagia tx;Trials with AUTOC[employer]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 Speech and Language Time Entry Speech Sound Production Eval W/ Lang Comp and Exp Time Entry 40 Swallowing Function Time Entry Clinical Swallow Eval Time Entry 10 Objective Vital Signs: Patient Vitals for the past 24 hrs: BP MAP (mmHg) Pulse Resp SpO2 09/06/24 1339 (!) 100/59 73 (!) 110 16 -- 09/06/24 1321 -- -- 77 16 94 % 09/06/24 1107 -- -- 86 16 96 % 09/06/24 0917 155/63 94 -- -- -- 09/06/24 0905 -- -- 92 -- -- 09/06/24 0739 151/70 97 88 16 -- 09/06/24 0656 -- -- 77 18 100 % 09/06/24 0640 -- -- 74 18 97 % 09/06/24 0231 -- -- 82 18 97 % 09/06/24 0223 -- -- 87 18 97 % 09/05/242039 -- -- 89 18 98 % 09/05/242030 -- -- 88 18 97 % 09/05/242029 -- -- 84 18 (!) 86 % 09/05/241999 (!) 119/57 78 92 18 -- 09/05/24 1733 (!) 127/58 -- 93 16 95 % Outcome Measures: 09/06/24 1205 Dysphagia Outcome And Severity Scale (AMPARO) Select Patient AMPARO Level Level 3 - Moderate dysphagia 09/06/24 1205 International Disphagia Diet Standardization Initiative (IDDSI) Prescribed Food Level 4-Pureed Prescribed Liquid Level 0-Thin IDDSI-Functional Diet Scale 5 Patient Education: Education Documentation Speech-Language/Pathology Treatment Plan, taught by Anupama Last CCC-AUTOCAD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 at 09/06/2024 3:47 PM. Learner: Family, Patient Readiness: Acceptance Method: Explanation Response: Verbalizes Understanding Results of Exam, taught by JONATHAN PatricioAUTOCAD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 at 09/06/2024 3:47 PM. Learner: Family, Patient Readiness: Acceptance Method: Explanation Response: Verbalizes Understanding Education Comments No comments found. Goals: Encounter Goals Encounter Goals (Active) LTG - Patient will participate in ongoing diagnostic assessments to determine plan of care Start: 09/06/24 STG - Patient will participate in ongoing diagnostic assessments to determine plan of care Start: 09/06/24 LEESA Patricio GER WIRELESS * Mikayla Beckett, PT - 09/06/2024 11:35 AM MANAGER WIRELESS Physical Therapy Evaluation and Treatment Note Patient Name: Chaitanya Tena Today's Date: 09/06/2024 Preferred Language: Tanzanian Assessment & Plan Assessment: PT Assessment: Chaitanya Tena is a 78 y.o. male with hx of prior ischemic stroke w/ no residual deficits, HTN, DM2, lung cancer (last treatment 2021) who presented to [facility] on 08/19 w/ left sided weakness and neglect, found to have R MCA stroke s/p TNK and endovascular thrombectomy on 08/19 with subsequent improvement in strength and mentation. Mild hemorrhagic conversion. Acute care course c/b CAP s/p completion of abx on 08/28/24. PT eval limited due to pt undering CT scan. Pt demonstrating L inattention, generalized decreased attention to task, poor insight, impulsivity and overall high risk for falls. Strength appears to be within functional limits bilaterally. Pt will benefit from skilled, intensive inpatient physical therapy intervention with an interdisciplinary approach to address the aforementioned deficits in order to improve functional mobility, decrease falls risk, promote return to prior level of function, decrease caregiver burden, and promote safe home discharge. Prognosis: Good Barriers to Discharge: Medical diagnosis, Severity of deficits, Time since onset, Insight into deficits, Safety awareness Evaluation/Treatment Tolerance: Patient tolerated treatment well Strengths: Support of extended family/friends, Premorbid level of function Plan: Treatment Plan/Goals Established with Patient/Caregiver: Yes PT Frequency: 60-90 minutes per day PT Planned Treatment: Age appropriate play, Aquatic therapy, Assistive technology, Balance training, Basic activities of daily living, Bed mobility training, Body weight support treadmill training, Caregiver training, Community/Work reintegration, Compression wrapping, Desensitization program, Developmental skills training, Edema management, Electric modalities, Equipment training, Gait training, Group therapy, Home assessment/modification, Manual therapy, Mechanical modalities, Neuromuscular reeducation, Orthotic training, Pain management, Patient education, Positioning, Posture/Body mechanics training, Robotic assisted walking therapy, Spasticity Management, Seating, Stair training, Taping, Therapeutic activities, Therapeutic exercises, Thermal/Light modalities, Transfer training Duration: 3-4 weeks Subjective Pain: Pain Assessment Pain Assessment: 0-10 (09/06/20241134) Pain Score: 0 (09/06/20241134) Vital Signs: Patient Vitals for the past 12 hrs: BP MAP (mmHg) Pulse Resp SpO2 09/06/24 1107 -- -- 86 16 96 % 09/06/24 0917 155/63 94 -- -- -- 09/06/24 0905 -- -- 92 -- -- 09/06/24 0739 151/70 97 88 16 -- 09/06/24 0656 -- -- 77 18 100 % 09/06/24 0640 -- -- 74 18 97 % 09/06/24 0231 -- -- 82 18 97 % 09/06/24 0223 -- -- 87 18 97 % Parameters for the past 12 hrs: Flow (L/min) 09/06/24 1135 2 09/06/24 1000 2 Objective 09/06/24 1135 General Amount of Missed Time (min) 35 Minutes Missed Time Reason (pt taken for CT scan) Family/Caregiver Present Yes Others Present pt's daughter and grandson Time Calculation Start Time 1135 Stop Time 1200 Time Calculation (min) 25 min Precautions UE Weight Bearing Status FWB LE Weight Bearing Status FWB Medical Precautions 2L O2, standard, falls Pain Assessment Pain Assessment 0-10 Pain Score 0 Health Conditions Pain Interference with Therapy Activities Rarely or not at all VAD Parameters Flow (L/min) 2 Cognitive-Linguistic Functioning Overall Cognitive Status Impaired Behavior/Cognition Alert;Confused;Impulsive;Distractible;Requires redirection Arousal/Alertness Delayed responses to stimuli Orientation Level Disoriented to time;Disoriented to situation;Disoriented to person Following Commands Impaired Safety Judgment Decreased awareness of need for safety Awareness of Deficits Decreased awareness of deficits Attention Attends with redirection Home Living Type of Home House Lives With Daughter Home Adaptive Equipment (no family present on eval) Prior Functioning: Everyday Activities Self Care Unknown Indoor Mobility (Ambulation) Unknown Stairs Unknown Functional Cognition Unknown Activity Tolerance Endurance Tolerates 10 - 20 min exercise with multiple rests Sensation Sensation Comments Unable to assess d/t impaired awareness and attention to task. Pt responding to tactile stim so at minimum, impared in bilat LEs Coordination Movements are Fluid and Coordinated No Heel to [place]istan Right impaired;Left impaired Balance- Sitting Static Sitting-Balance Support With one UE support Level of Assistance Supervision/touching assistance Sitting Surface Bed Bed Mobility Bed Mobility Yes Bed Mobility 1 Level of Assistance 1 Partial/Mod assistance Bed Mobility To/From Supine to sit on EOB Assistive Devices And Adaptive Equipments Bed rail Roll Left and Right Assistance Needed Physical assistance Physical Assistance Level 26%-50% CARE Score - Roll Left and Right 3 Lying to Sitting on Side of Bed Assistance Needed Physical assistance Physical Assistance Level 26%-50% CARE Score - Lying to Sitting on Side of Bed 3 Sit to Lying Assistance Needed Physical assistance Physical Assistance Level 26%-50% CARE Score - Sit to Lying 3 Transfers Transfer Yes Transfer 1 Technique 1 Stand step Level of Assistance 1 Partial/Mod assistance Trials/Comments 1 mod a stand shuffle to the R Transfer To/From Bed;Wheelchair Chair/[id number]-[id number] Transfer Assistance Needed Physical assistance Physical Assistance Level 26%-50% CARE Score - Chair/[id number] Transfer 3 Sit to Stand Assistance Needed Physical assistance Physical Assistance Level 25% or less CARE Score - Sit to Stand 3 Car Transfer Reason if not Attempted Environmental limitations CARE Score - Car Transfer 10 Toilet Transfer Assistance Needed Physical assistance Physical Assistance Level 76% or more CARE Score - Toilet Transfer 2 Walk 10 Feet Reason if not Attempted Safety concerns CARE Score - Walk 10 Feet 88 Walk 50 Feet with Two Turns Reason if not Attempted Safety concerns CARE Score - Walk 50 Feet with Two Turns 88 Walk 150 Feet Reason if not Attempted Safety concerns CARE Score - Walk 150 Feet 88 Walking 10 Feet on Uneven Surfaces Reason if not Attempted Safety concerns CARE Score - Walking 10 Feet on Uneven Surfaces 88 Picking Up Object Reason if not Attempted Safety concerns CARE Score - Picking Up Object 88 1 Step (Curb) Reason if not Attempted Safety concerns CARE Score - 1 Step (Curb) 88 4 Steps Reason if not Attempted Safety concerns CARE Score - 4 Steps 88 12 Steps Reason if not Attempted Safety concerns CARE Score - 12 Steps 88 Wheel 50 Feet with Two Turns Assistance Needed Physical assistance Physical Assistance Level Total assistance CARE Score - Wheel 50 Feet with Two Turns 1 Type of Wheelchair/Scooter Manual Wheel 150 Feet Assistance Needed Physical assistance Physical Assistance Level Total assistance CARE Score - Wheel 150 Feet 1 Type of Wheelchair/Scooter Manual Outcome Measures: [place]cia Balance Scale 1. Sitting to Standing: Needs minimal aid to stand or stabilize 2. Standing Unsupported: Unable to stand 30 seconds unsupported 3. Sitting with Back Unsupported but Feet Supported on Floor or on a Stool: Able to sit 10 seconds 4. Standing to Sitting: Uses back of legs against chair to control descent 5. Transfers: Needs one person to assist 6. Standing Unsupported with Eyes Closed: Needs help to keep from falling 7. Standing Unsupported with Feet Together: Needs help to attain position and unable to hold for 15 seconds 8. Reach Forward with Outstretched Arm While Standing: Loses balance while trying/requires external support 9. Desktop Publishing Specialist Object from Floor from a Standing Position: Unable to try/needs assist to keep from losing balance or falling 10. Turning to Look Behind Over Left and Right Shoulders While Standing: Needs assist to keep from losing balance or falling 11. Turn 360 Degrees: Needs assistance while turning 12. Place Alternate Foot on Step or Stool While Standing Unsupported: Needs assistance to keep from falling/unable to try 13. Standing Unsupported One Foot in Front: Loses balance while stepping or standing 14. Standing on One Leg: Unable to try needs assist to prevent fall [place] Balance Score: 5 6 min walk 6 min walk: 0 10 meter walk (fast and self-selected) 10 meter walk (fast and self-selected): 0 Patient Education: Education Documentation No documentation found. Education Comments No comments found. Goals: Encounter Goals Encounter Goals (Active) Pt will perform all bed mobility independently Start: 09/06/24 Expected End: 09/27/24 LTG: Pt will ambulate > 150 ft with SPV and LRAD Start: 09/06/24 Expected End: 09/27/24 STG: Assess gait as appropriate Start: 09/06/24 Expected End: 09/13/24 LTG: Pt will improve BBS to 36/56 to indicate decreased risk for falls Start: 09/06/24 Expected End: 09/27/24 STG: Pt will improve BBS to >13/56 to indicate decreased risk for falls (IE5/56, MDC 6.9 pts) Start: 09/06/24 Expected End: 09/13/24 Within 2 weeks of starting therapy, the patient and/or family/caregiver will demonstrate independence and be compliant in a written HEP in order to maximize gains made during therapy. Start: 09/06/24 Expected End: 09/27/24 LTG: Pt will perform stand step transfers with set-up assist and LRAD Start: 09/06/24 Expected End: 09/27/24 STG: Pt will perform stand step transfers with touch A and LRAD Start: 09/06/24 Expected End: 09/20/24 Mikayla Beckett PT GER WIRELESS * Rosemarie Meyer MD - 09/06/2024 11:18 AM MANAGER WIRELESS [facility] [place] Hospitalist Consult Progress Note Subjective Patient is a 78-year-old male with PMH of CVA without any residual deficit, hypertension diabetes lung cancer treated in 2021 presented to hospital with left-sided weakness on 08/19, found 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 Hospital course was complicated by pneumonia which was treated with antibiotics. Antibiotics were completed on 08/28. Now patient is transferred here for comprehensive rehab. 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 able to communicate, left-sided weakness Musculoskeletal -Normal range of motion Extremities- No edema Skin - warm and No rashes Current Active Medications amLODIPine, 10 mg, Oral, Daily aspirin, 324 mg, Nasogastric, Daily atorvastatin, 80 mg, Oral, Daily caffeine, 100 mg, Oral, Daily clopidogrel, 75 mg, Nasogastric, Daily Docusate Sodium, 100 mg, Per G Tube, q12h Ensure Enlive, 1 Container, Oral, TID with meals heparin, 5,000 Units, Subcutaneous, q8h insulin glargine, 30 Units, Subcutaneous, Every evening insulin lispro, 8 Units, Subcutaneous, TID with meals ipratropium-albuterol, 3 mL, Nebulization, q6h losartan, 75 mg, Oral, Daily melatonin, 3 mg, Per G Tube, Nightly mirtazapine, 7.5 mg, Oral, Nightly modafinil, 100 mg, Oral, Daily polyethylene glycol (PEG) 3350, 17 g, Per G Tube, q12h sennosides, 1 tablet, Oral, Nightly PRN medications: bisacodyl, dextrose, glucagon, insulin lispro, levETIRAcetam, magnesium hydroxide, midazolam, sodium chloride Imaging:XR abdomen 1 view Narrative: PROCEDURE INFORMATION: Exam: XR Abdomen Exam date and time: 09/06/2024 8:12 AM Age: 78 years old Clinical indication: Eval stool TECHNIQUE:Imaging protocol: Radiologic exam of the abdomen. Views: Frontal supine view of the abdomen. 1 View. COMPARISON:DX XR ABDOMEN 1 VIEW 08/31/2024 7:46 PM FINDINGS:Gastrointestinal tract: There is a non-obstructive bowel gas pattern. There is no abnormal dilatation of bowel loops. There is no pneumatosis or mass effect. There is moderate retained fecal matter throughout the colon. Bones/joints: Unremarkable. Soft tissues: No abnormal radiopaque densities. Impression: Moderate retained fecal matter throughout the colon. ELECTRONICALLY SIGNED BY VEE MAYERS MD ON 09/06/2024 AT 09:08. Lab ResultsResults from last 7 days Lab Units 09/06/24 0450 09/05/24 0415 09/04/24 0312 WBC 10*3/uL 11.57* 10.36* 9.76 HEMOGLOBIN g/dL 12.3* 12.0* 12.4 HEMATOCRIT % 40.3 38.6 39.9 PLATELETS 10*3/uL 366 369 360 Results from last 7 daysLab Units 09/06/24 0807 09/05/24 0837 09/05/24 0239 09/04/24 0614 09/04/24 0312 09/03/24 0723 09/03/24 0239 SODIUM mEq/L -- -- 142 -- 142 -- 139 POTASSIUM mEq/L -- -- 4.1 -- 3.9 -- 4.4 CHLORIDE mEq/L -- -- 105 -- 104 -- 102 CO2 mEq/L -- -- 28.4 -- 30.1 -- 29.5 BUN mg/dL -- -- 27* -- 24* -- 21 CREATININE mg/dL -- -- 1.08 -- 1.05 -- 1.12 GLUCOSE mg/dL -- -- 138* -- 59* -- 195* POC GLUCOSE mg/dL 107* < > -- < > -- < > -- CALCIUM mg/dL -- -- 9.4 -- 9.6 -- 9.4 < > = values in this interval not displayed. Micro:Susceptibility data from last 90 days. 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 Hospital course was complicated by pneumonia which was treated with antibiotics. Antibiotics were completed on 08/28. Now patient is transferred here for comprehensive rehab. Acute CVA-Right MCA CVA on 08/19 status post TNK and endovascular thrombectomy on 08/19 -MRI consistent with right MCA infarct DAPT with aspirin and Plavix for 21 days and aspirin lifelong thereafter -Per neurology etiology of stroke was embolic stroke of undetermined source -Comprehensive rehab per primary team Hypoxic respiratory failure-Patient was recently treated for pneumonia, completed antibiotic on 08/28 -X-ray chest is pending, will follow-up -Currently on 3 L of oxygen, continue DuoNebs -Continue to monitor clinical course, ultrasound of extremities pending due to leg edema Dysphagia-Continue dysphagia diet Hypertension-Continue amlodipine 10 mg p.o. daily, losartan 75 mg daily -Monitor blood pressure Type 2 diabetes-Hemoglobin A1c is 9.4 -Continue Lantus 30 units and sliding scale insulin, blood sugars fairly controlled, adjust insulin as needed Adult Diet Dysphagia; 0 - Thin Liquids; 4 - Pureed (Dysphagia Pureed); No concentrated sweets; 1:1 Feeding VTE prophylaxis: heparin - 5000 units/mL Disposition: Per primary team Hospitalist service is consulting service, please use secure chat for any questions or concerns Thank you for consulting [place] hospitalist Rosemarie Meyer MD Mortgage Loan Processing Clerk, Hospitalist Division [facility] [place] GER WIRELESS * Kiki Delgado OT - 09/06/2024 10:00 AM MANAGER WIRELESS .Evaluation and Treatment Patient Name: Chaitanya Tena Today's Date: 09/06/2024 Preferred Language: Tanzanian Assessment & Plan Assessment: OT Assessment Results: Impaired ADL status, Impaired upper extremity range of motion, Impaired upper extremity strength, Impaired safe judgment during ADL, Impaired cognition, Impaired endurance, Impaired sensation, Visual deficit, Impaired fine motor control, Impaired functional mobility, Impaired gross motor control, Impaired IADLs, Communication impairment, Impaired right upper extremity, Impaired left upper extremity, Impaired trunk control for functional activities Prognosis: Good Evaluation/Treatment Tolerance: Patient tolerated treatment well Strengths: Support of extended family/friends Barriers to Discharge: Medical diagnosis, Severity of deficits, Time since onset Plan: Treatment Plan/Goals Established with Patient/Caregiver: Yes Treatment Interventions: ADL retraining, Cognitive reorientation, Aquatic therapy, Compensatory technique education, Endurance training, Equipment evaluation/education, Functional transfer training, Fine motor coordination activities, Neuromuscular reeducation, Orthotic/Orthotic management, Patient/family training, Positioning, UE strengthening/ROM, Visual perceptual retraining OT Plan: Skilled OT OT Frequency: 5-7 times per week OT Planned Treatments: Work simplification, Discharge, Activities of Daily Living, Aquatics, Balance training, Caregiver training, Casting, Cognitive training, Coordination, Developmental skills training, Discharge/Discontinue OT treatment, Dry needling, Edema managment, Electric modalities, Energy conservation training, Equipment assessment, Equipment training, Group therapy, Home program, Joint protection, Manual therapy, Mobility training, Neuromuscular reeducation, Orthotic, Pain management, Patient education, Prevocational training, Safety education, Seating/Positioning, Sensory integration, Spasticity Managment, Splinting, Taping, Therapeutic activities, Therapeutic exercises, Thermal modalities, Visual and perceptual training OT Duration: 3-4 weeks Subjective Pain: Pain Assessment Pain Assessment: 0-10 (09/06/2024999) Pain Score: 0 (09/06/2024999) Pain Rating Scale (DVPRS): No pain (09/06/2024 1000) David-Cano FACES Pain Rating: No hurt (09/06/2024 1000) Vital Signs: Patient Vitals for the past 12 hrs: BP MAP (mmHg) Pulse Resp SpO2 09/06/24 1107 -- -- 86 16 96 % 09/06/24 0917 155/63 94 -- -- -- 09/06/24 0905 -- -- 92 -- -- 09/06/24 0739 151/70 97 88 16 -- 09/06/24 0656 -- -- 77 18 100 % 09/06/24 0640 -- -- 74 18 97 % 09/06/24 0231 -- -- 82 18 97 % 09/06/24 0223 -- -- 87 18 97 % Parameters for the past 12 hrs: Flow (L/min) 09/06/24 1000 2 Objective: 09/06/24 1000 Time Calculation Start Time 1000 Stop Time 1100 Time Calculation (min) 60 min Precautions UE Weight Bearing Status FWB LE Weight Bearing Status FWB Medical Precautions 2 L oxygen Pain Assessment Pain Assessment 0-10 Pain Score 0 Pain Rating Scale (DVPRS) 0 David-Cano FACES Pain Rating 0 VAD Parameters Flow (L/min) 2 Cognitive-Linguistic Functioning Overall Cognitive Status Impaired Behavior/Cognition Alert;Cooperative Orientation Level (oriented to self and month, but year or place) Home Living Type of Home House Lives With Daughter Home Adaptive Equipment (unable to assess due to no fmaily present) Home Layout Two level (needs to be verified when family is present) Bathroom Toilet Standard Prior Function Level of [place] Independent with ADLs and functional transfers 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 Self Assistance Needed Physical assistance Physical Assistance Level Total assistance CARE Score - Shower/Bathe Self 1 Oral Hygiene Assistance Needed Physical assistance Physical Assistance Level 76% or more CARE Score - Oral Hygiene 2 Upper Body Dressing UE Dressing Activity Component(s) Short sleeve shirt Dressing Location/Position In bed Level of Assistance Substantial/Max assistance Upper Body Dressing Assistance Needed Physical assistance Physical Assistance Level 76% or more CARE Score - Upper Body Dressing 2 Lower Body Dressing LE Dressing Activity Component(s) Pants Dressing Location/Position In bed Level of Assistance Dependent Lower Body Dressing Assistance Needed Physical assistance Physical Assistance Level Total assistance CARE Score - Lower Body Dressing 1 Footwear Dressing Activity Component(s) Socks Dressing Location/Position In bed Level of Assistance Substantial/Max assistance Putting On/Taking Off Footwear Assistance Needed Physical assistance Physical Assistance Level 76% or more CARE Score - Putting On/Taking Off Footwear 2 Eating Assistance Needed Physical assistance Physical Assistance Level 76% or more CARE Score - Eating 2 Toileting Hygiene Assistance Needed Physical assistance Physical Assistance Level Total assistance CARE Score - Toileting Hygiene 1 Toilet Transfer Assistance Needed Physical assistance Physical Assistance Level 76% or more CARE Score - Toilet Transfer 2 Bed Mobility 1 Level of Assistance 1 Substantial/Max assistance Bed Mobility To/From Roll left/right Assistive Devices And Adaptive Equipments Bed rail General Evaluation Orientation (oriented to self, month, not to year or place) Affect/Behavior Cooperative Basic Command Following Impaired Safety/Judgment Impaired Activity Tolerance Evaluation/Treatment Tolerance Patient tolerated treatment well Vision - Basic Assessment Current Vision (wears glasses sometimes) Vision - Complex Assessment Tracking (decreased attention left and decreased attention in general) Sensation Light Touch (unable to assess due to decreased cognition, pt unable to follow directions) Perception Inattention/Neglect Cues to attend left visual field Initiation Hand over hand to initiate tasks Motor Planning Hand over hand to sequence tasks Perseveration Not present Coordination Finger to Nose (unable to assess due to decreased cognition, pt unable to follow directions) Finger Opposition (unable to assess due to decreased cognition, pt unable to follow directions) Dysdiadochokinesia (unable to assess due to decreased cognition, pt unable to follow directions) RUE Assessment RUE Assessment X RUE PROM (degrees) R Shoulder Flexion 0-120 R Shoulder ABduction 0-120 R Shoulder External Rotation 0-50 R Elbow Flexion WFL R Elbow Extension WFL R Forearm Pronation WFL R Forearm Supination WFL R Wrist Flexion WFL R Wrist Extension 0-40 RUE Strength RUE Overall Strength Deficits R Shoulder Flexion 3-/5 R Shoulder Extension 3-/5 R Shoulder ABduction 3-/5 R Shoulder ADduction 3-/5 R Shoulder Internal Rotation 3-/5 R Shoulder External Rotation 3-/5 R Elbow Flexion 3+/5 R Elbow Extension 3+/5 R Forearm Pronation 3-/5 R Forearm Supination 3-/5 R Wrist Flexion 3-/5 R Wrist Extension 3-/5 R Wrist Radial Deviation 3-/5 R Wrist Ulnar Deviation 3-/5 R Gross Hair Dresser Strength 2+/5 LUE Assessment LUE Assessment X LUE PROM (degrees) L Shoulder Flexion 0-120 L Shoulder ABduction 0-120 L Shoulder External Rotation 0-50 L Elbow Flexion WFL L Elbow Extension WFL L Forearm Pronation WFL L Forearm Supination WFL L Wrist Extension WFL L DIP (Little) WFL LUE Strength LUE Overall Strength Deficits L Shoulder Flexion 3-/5 L Shoulder Extension 3-/5 L Shoulder ABduction 3-/5 L Shoulder ADduction 3-/5 L Shoulder Internal Rotation 3-/5 L Shoulder External Rotation 3-/5 L Elbow Flexion 3-/5 L Elbow Extension 3-/5 L Forearm Pronation 3-/5 L Forearm Supination 3-/5 L Wrist Flexion 3-/5 L Wrist Extension 3-/5 L Wrist Ulnar Deviation 3-/5 L Gross Hair Dresser Strength 3-/5 Upper Extremity Tone Left Upper Extremity Normal Right Upper Extremity (difficult to assess due to decreased command following pt resisting movements) Wheelchair Activities Wheelchair Size 18x18 Wheelchair Type Manual Manual WC Types Tilt in space Wheelchair Cushion Standard Pressure Relief Type Tilt manual Level of Assistance Dependent Wheelchair Parts Management No Hearing, Speech, and Vision Ability to Hear Minimal difficulty Ability to See in Adequate Light Impaired Expression of Ideas and Wants Frequent difficulty Understanding Verbal and Non-Verbal Content Sometimes understands Cognitive Pattern Assessment Cognitive Pattern Assessment Used BIMS Brief Interview for Mental Status (BIMS) Repetition of Three Words (First Attempt) 3 Temporal Orientation: Year Missed by more than 5 years (1974) Temporal Orientation: Month Accurate within 5 days Temporal Orientation: Day Incorrect Recall: "Sock" Yes, after cueing ("something to wear") Recall: "Blue" No, could not recall Recall: "Bed" No, could not recall BIMS Summary Score 6 Confusion Assessment Method (CAM) Is there evidence of an acute change in mental status from the patient's baseline? No Inattention Behavior continuously present, does not fluctuate Disorganized thinking Behavior not present Altered level of consciousness Behavior not present Prior Functioning: Everyday Activities Self Care Unknown Indoor Mobility (Ambulation) Unknown Stairs Unknown Functional Cognition Unknown Prior Device Use Walker OT Assessment OT Assessment Results Impaired ADL status;Impaired upper extremity range of motion;Impaired upper extremity strength;Impaired safe judgment during ADL;Impaired cognition;Impaired endurance;Impaired sensation;Visual deficit;Impaired fine motor control;Impaired functional mobility;Impaired gross motor control;Impaired IADLs;Communication impairment;Impaired right upper extremity;Impaired left upper extremity;Impaired trunk control for functional activities Prognosis Good Strengths Support of extended family/friends Barriers to Discharge Medical diagnosis;Severity of deficits;Time since onset OT Plan Treatment Plan/Goals Established with Patient/Caregiver Yes Treatment Interventions ADL retraining;Cognitive reorientation;Aquatic therapy;Compensatory technique education;Endurance training;Equipment evaluation/education;Functional transfer training;Fine motor coordination activities;Neuromuscular reeducation;Orthotic/Orthotic management;Patient/family training;Positioning;UE strengthening/ROM;Visual perceptual retraining OT Plan Skilled OT OT Frequency 5-7 times per week OT Planned Treatments Work simplification;Discharge;Activities of Daily Living;Aquatics;Balance training;Caregiver training;Casting;Cognitive training;Coordination;Developmental skills training;Discharge/Discontinue OT treatment;Dry needling;Edema managment;Electric modalities;Energy conservation training;Equipment assessment;Equipment training;Group therapy;Home program;Joint protection;Manual therapy;Mobility training;Neuromuscular reeducation;Orthotic;Pain management;Patient education;Prevocational training;Safety education;Seating/Positioning;Sensory integration;Spasticity Managment;Splinting;Taping;Therapeutic activities;Therapeutic exercises;Thermal modalities;Visual and perceptual training OT Duration 3-4 weeks OT Evaluation Time Entry OT Evaluation (Complex) Time Entry 60 Patient Education: Education Documentation No documentation found. Education Comments No comments found. Goals: Encounter Goals Encounter Goals (Active) Patient will perform grooming with minimum assist for improved independence with ADLs Start: 09/06/24 Expected End: 09/27/24 Patient will perform feeding with minimum assist for improved independence with ADLs Start: 09/06/24 Expected End: 09/27/24 Patient will perform upper body dressing with minimum assist to improve independence with dressing. Start: 09/06/24 Expected End: 09/27/24 Patient will perform lower body dressing with moderate assist to improve independence with dressing. Start: 09/06/24 Expected End: 09/27/24 Pt and/or caregiver(s) will have all appropriate DME, recommendations, or completed prescriptions to maximize pt's safety and independence at discharge. Start: 09/06/24 Expected End: 09/27/24 Patient and/or caregivers will verbalize understanding of home program including safety tips, equipment instructions, and home exercises. Start: 09/06/24 Expected End: 09/27/24 Patient will participate in forced use activities using the affected upper extremity with minimum assistance to inhibit abnormal movement patterns. Start: 09/06/24 Expected End: 09/27/24 Patient will incoporate their affected upper extremity with minimal assist/cues during functional task performance. Start: 09/06/24 Expected End: 09/27/24 Patient assessment the need for fabrication and wearing of left UE resting for spasticity management Start: 09/06/24 Expected End: 09/27/24 Patient will participate in seating and mobility trials to improve posture, reduce tone, and prevent secondary complications. Start: 09/06/24 Expected End: 09/27/24 Kiki Delgado OT GER WIRELESS * Etsevan Vazquez PharmD - 09/05/2024 6:03 PM MANAGER WIRELESS Admission Medication Reconciliation Completed. Discrepancies as noted below between admission orders and MAR from outside facility or home medication list available. No discrepancies noted No Known Allergies Physician contacted: n/a Discrepancies found as noted below: Medication dosing discrepancy with: Medication omitted in current orders: Formulary conversion done for: IV to PO conversion done: Other Comments: Admitted From: [facility] Cosigned by Bernadette Norton MD at 09/06/2024 6:04 AM MANAGER WIRELESS GER [facility]ESS GER [facility] * Estevan Vazquez PharmD - 09/05/2024 6:02 PM MANAGER WIRELESS [facility] Admission Medications N2001. Drug Regimen Review | N2003. Medication Follow-up Did a complete drug regimen review identify potential clinically significant medication issues? No - No issues found during review. 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) Uncontrolled type 2 diabetes mellitus with hyperglycemia (HCC) Expected: 09/07/2024 (Approximate), Expires: 09/07/2025 Ambulatory referral to Neurology Outpatient Referral Routine Cerebrovascular accident (CVA) due to embolism of right middle cerebral artery (HCC) Acute ischemic stroke (HCC) Expected: 09/22/2024 (Approximate), Expires: 09/22/2025 Ambulatory referral to Physical Medicine Rehab Outpatient Referral Routine Acute stroke due to thrombosis of right middle cerebral artery (HCC) Hemiparesis affecting left side as late effect of stroke (CMS/HCC) (HCC) Cognitive communication deficit Expected: 09/25/2024 (Approximate), Expires: 09/25/2025 Ambulatory referral to Neuropsychology Outpatient Referral Routine Acute stroke due to thrombosis of right middle cerebral artery (HCC) Hemiparesis affecting left side as late effect of stroke (CMS/HCC) (HCC) Cognitive communication deficit Delirium Expected: 09/26/2024 (Approximate), Expires: 09/26/2025 Health Maintenance Due Date Last Done Comments Medicare Annual Wellness (AWV) 1945 Annual Physical 1946 Diabetes: Foot Exam 1953 Diabetes: Retinopathy Screening 1953 DTaP/Tdap/Td Vaccines (1 - Tdap) 1962 Diabetes: Urine Protein Screening 1962 Zoster Vaccines (1 of 2) 1993 Pneumococcal Vaccine: 65+ Years (2 of 2 - PPSV23 or PCV20) 06/02/2016 04/07/2016 Respiratory Syncytial Virus (RSV) or >=60 (1 - 1-dose 75+ series) 2018 Diabetes: Hemoglobin A1C 11/17/2024 024, 02/18/2023, 10/20/2022, Additional history exists Lipid Panel 08/19/2025 08/19/2024, 03/2023, 11/27/2019 Influenza Vaccine Completed 09/27/2024, , 07/04/2020, Additional history exists HIB Vaccines Aged Out No longer eligi ble based on patient's age to complete this topic HPV Vaccines Aged Out No longer eligi ble based on patient's age to complete this topic Hepatitis A Vaccines Aged Out No long er eligible based on patient's age to complete this topic Hepatitis B Vaccines Aged Out No long er eligible based on patient's age to complete this topic IPV Vaccines Aged Out No longer eligi ble based on patient's age to complete this topic Meningococcal Vaccine Aged Out No caio ojhnathon eligible based on patient's age to complete this topic Rotavirus Vaccines Aged Out No longer eligible based on patient's age to complete this topic [id number] 12:44:04 [facility] [id number] 12:44:04 Diagnosis 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) - Primary Acute stroke due to thrombos is of right middle cerebral artery (HCC) 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) (HCC) Other abnormalities of gait and mobility Cognitive communication defi cit Other hyperlipidemia Other sleep disorders Neurogenic bowel Other neuromuscular dysfunct ion of bladder Diabetes mellitus due to und erlying condition with hyperglycemia, without long-term current use of insulin (HCC) Primary hypertension Unspecified essential hypertension Intracranial atherosclerosis Cerebral atherosclerosis 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) Uncontrolled type 2 diabetes mellitus with hyperglycemia (HCC) Cerebrovascular accident (CV A) due to embolism of right middle cerebral artery (HCC) Acute ischemic stroke (HCC) Unspecified cerebral artery occlusion with cerebral infarction Cerebrovascular accident (CV A), unspecified mechanism (HCC) Delirium Other alteration of consciousness Delirium Other alteration of consciousness Dysphagia Hyperlipidemia Other and unspecified hyperlipidemia Primary hypertension Unspecified essential hypertension Uncontrolled type 2 diabetes mellitus with hyperglycemia (HCC) Acute stroke due to thrombos is of right middle cerebral artery (HCC) 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 [id number]: Insulin Pen Injection with Clear Insulin - Video This video shows the steps for using an insulin pen with clear insulin. To view the video go to this web address: [email or web address] Or, scan this QR code with your smart phone Last Reviewed Date: 2021 00:00:00 ? [id number] [employer]. All rights reserved. This information is not intended as a substitute for professional medical care. Always follow your healthcare professional's instructions. [facility] [place], [place]2025-01-15 10:44:51 Images from the original note were not included. [id number] Losartan Brand Name(s): Cozaar?, Hyzaar? (as a combination product containing Hydrochlorothiazide, Losartan); also available generically IMPORTANT WARNING: Tell your doctor if you are or plan to become . Do not take losartan if you are . If you become while you are taking losartan, stop taking losartan and call your doctor immediately. Losartan may cause or serious injury to the fetus when taken in the last 6 months of . WHY is this medicine prescribed? Losartan is used alone or in combination with other medications to treat high blood pressure. Losartan is also used to decrease the risk of stroke in people who have high blood pressure and a heart condition called left ventricular hypertrophy (enlargement of the meier of the left side of the heart). Losartan may not decrease the risk of stroke in Americans who have these conditions. This medication is also used to treat kidney disease in people who have type 2 diabetes (condition in which the body does not use insulin normally and therefore cannot control the amount of sugar in the blood) and high blood pressure. Losartan is in a class of medications called angiotensin II receptor antagonists. It works by blocking the action of certain natural substances that tighten the blood vessels, allowing the blood to flow more smoothly and the heart to pump more efficiently. High blood pressure is a common condition, and when not treated it can cause damage to the brain, heart, blood vessels, kidneys, and other parts of the body. Damage to these organs may cause heart disease, a heart attack, heart failure, stroke, kidney failure, loss of vision, and other problems. In addition to taking medication, making lifestyle changes will also help to control your blood pressure. These changes include eating a diet that is low in fat and salt, maintaining a healthy weight, exercising at least 30 minutes most days, not smoking, and using alcohol in moderation. HOW should this medicine be used? Losartan comes as a tablet to take by mouth. It is usually taken once or twice a day with or without food. To help you remember to take losartan, take it at around the same time(s) every day. Follow the directions on your prescription label carefully, and ask your doctor or pharmacist to explain any part you do not understand. Take losartan exactly as directed. Do not take more or less of it or take it more often than prescribed by your doctor. Your doctor will probably start you on a low dose of losartan and gradually increase your dose. If your child can not swallow a tablet, talk to your doctor or pharmacist. The pharmacist can prepare a liquid form of this medication for your child. Losartan controls high blood pressure but does not cure it. Your blood pressure may decrease during the first week of your treatment, but it may take 3 to 6 weeks for you to notice the full benefit of losartan. Continue to take losartan even if you feel well. Do not stop taking losartan without talking to your doctor. Ask your pharmacist or doctor for a copy of the mineral resources inspector's information for the patient. Are there OTHER USES for this medicine? Losartan is also sometimes used to treat heart failure (condition in which the heart is unable to pump enough blood to the rest of the body). Talk to your doctor about the possible risks of using this medication for your condition. This medication may be prescribed for other uses; ask your doctor or pharmacist for more information. What SPECIAL PRECAUTIONS should I follow? Before taking losartan, ? tell your doctor and pharmacist if you are allergic to losartan, any other medications, or any of the ingredients in losartan tablets. Ask your pharmacist for a list of the ingredients. ? tell your doctor if you have diabetes (high blood sugar) and you are taking aliskiren (Tekturna, in Amturnide, Tekamlo, Tekturna HCT). Your doctor will probably tell you not to take losartan if you have diabetes and you are also taking aliskiren. ? tell your doctor and pharmacist what other prescription and nonprescription medications, vitamins, nutritional supplements, and herbal products you are taking or plan to take while taking losartan. Your doctor may need to change the doses of your medications or monitor you carefully for side effects. ? the following nonprescription products may interact with losartan: aspirin and nonsteroidal anti-inflammatory drugs (NSAIDS) such as ibuprofen (Advil, Motrin, others) and naproxen (Aleve); potassium supplements. Be sure to let your doctor and pharmacist know that you are taking these medications before you start taking losartan. Do not start any of these medications while taking losartan without discussing with your healthcare provider. ? tell your doctor if you have or have ever had heart failure or kidney or liver disease. ? tell your doctor if you are . ? you should know that losartan may cause dizziness, lightheadedness, and fainting when you get up too quickly from a lying position. This is more common when you first start taking losartan. To help avoid this problem, get out of bed slowly, resting your feet on the floor for a few minutes before standing up. ? you should know that diarrhea, vomiting, not drinking enough fluids, and sweating a lot can cause a drop in blood pressure, which may cause lightheadedness and fainting. Tell your doctor if you have any of these problems or develop them during your treatment. What SPECIAL DIETARY instructions should I follow? Do not use salt substitutes containing potassium without talking to your doctor. If your doctor prescribes a low-salt or low-sodium diet, follow these directions carefully. What should I do IF I FORGET to take a dose? Take the missed dose as soon as you remember it. However, if it is almost time for the next dose, skip the missed dose and continue your regular dosing schedule. Do not take a double dose to make up for a missed one. What SIDE EFFECTS can this medicine cause? Some side effects can be serious. If you experience any of these symptoms or those listed in the SPECIAL PRECAUTIONS section, call your doctor immediately: ? swelling of the face, throat, tongue, lips, eyes, hands, feet, ankles, or lower legs ? hoarseness ? difficulty breathing or swallowing ? chest pain Losartan may cause other side effects. Call your doctor if you have any unusual problems while taking this medication. If you experience a serious side effect, you or your doctor may send a report to the Food and Drug Administration's (FDA) MedWatch Adverse Event Reporting program online (https://www.fda.gov/Safety/MedWatch) or by phone ( ). What should I know about STORAGE and DISPOSAL of this medication? Keep this medication in the container it came in, tightly closed, and out of reach of children. Store it at room temperature and away from excess heat, light, and moisture (not in the bathroom). It is important to keep all medication out of sight and reach of children as many containers (such as weekly pill minders and those for eye drops, creams, patches, and inhalers) are not child-resistant and young children can open them easily. To protect young children from poisoning, always lock safety caps and immediately place the medication in a safe location -- one that is up and away and out of their sight and reach. https://www.upandaway.org Unneeded medications should be disposed of in special ways to ensure that pets, children, and other people cannot consume them. However, you should not flush this medication down the toilet. Instead, the best way to dispose of your medication is through a medicine take-back program. Talk to your pharmacist or contact your local garbage/recycling department to learn about take-back programs in your community. See the FDA's Safe Disposal of Medicines website (https://goo.gl/c4Rm4p) for more information if you do not have access to a take-back program. What should I do in case of OVERDOSE? In case of overdose, call the poison control helpline at . Information is also available online at https://www.poisonhelp.org/help. If the victim has collapsed, had a seizure, has trouble breathing, or can't be awakened, immediately call emergency services at 911. Symptoms of overdose may include the following: ? dizziness ? fainting ? fast or slow heartbeat What OTHER INFORMATION should I know? Keep all appointments with your doctor and the laboratory. Your blood pressure should be checked regularly to determine your response to losartan. Do not let anyone else take your medication. Ask your pharmacist any questions you have about refilling your prescription. It is important for you to keep a written list of all of the prescription and nonprescription ([id number]) medicines you are taking, as well as any products such as vitamins, minerals, or other dietary supplements. You should bring this list with you each time you visit a doctor or if you are admitted to a hospital. It is also important information to carry with you in case of emergencies. This report on medications is for your information only, and is not considered individual patient advice. Because of the changing nature of drug information, please consult your physician or pharmacist about specific clinical use. The [employer] represents that the information provided hereunder was formulated with a reasonable standard of care, and in conformity with professional standards in the field. The [employer] makes no representations or warranties, express or implied, including, but not limited to, any implied warranty of merchantability and/or fitness for a particular purpose, with respect to such information and specifically disclaims all such warranties. Users are advised that decisions regarding drug therapy are complex medical decisions requiring the independent, informed decision of an appropriate health home care provider, and the information is provided for informational purposes only. The entire monograph for a drug should be reviewed for a thorough understanding of the drug's actions, uses and side effects. The [employer] does not endorse or recommend the use of any drug. The information is not a substitute for medical care. AHFS? Patient Medication Information?. ? Copyright, 2023. The [employer]?, [address], [address], [place], [place]. All Rights Reserved. Duplication for commercial use must be authorized by [facility]. Selected Revisions: October 28, 2017. AHFS? Patient Medication Information?. ? Copyright, 2024 [facility] [place], [place]2025-01-15 10:44:46 Images from the original note were not included. [id number] Modafinil Brand Name(s): Provigil?; also available generically WHY is this medicine prescribed? Modafinil is used to treat excessive sleepiness caused by narcolepsy (a condition that causes excessive daytime sleepiness) or shift work sleep disorder (sleepiness during scheduled waking hours and difficulty falling asleep or staying asleep during scheduled sleeping hours in people who work at night or on rotating shifts). Modafinil is also used along with breathing devices or other treatments to prevent excessive sleepiness caused by obstructive sleep apnea/hypopnea syndrome (OSAHS; a sleep disorder in which the patient briefly stops breathing or breathes shallowly many times during sleep and therefore doesn't get enough restful sleep). Modafinil is in a class of medications called wakefulness promoting agents. It works by changing the amounts of certain natural substances in the area of the brain that controls sleep and wakefulness. HOW should this medicine be used? Modafinil comes as a tablet to take by mouth. It is usually taken once a day with or without food. If you are taking modafinil to treat narcolepsy or OSAHS, you will probably take it in the morning. If you are taking modafinil to treat shift work sleep disorder, you will probably take it 1 hour before the beginning of your work shift. Take modafinil at the same time every day. Do not change the time of day that you take modafinil without talking to your doctor. Talk to your doctor if your work shift does not begin at the same time every day. Follow the directions on your prescription label carefully, and ask your doctor or pharmacist to explain any part you do not understand. Take modafinil exactly as directed. Modafinil may be habit-forming. Do not take a larger dose, take it more often, or take it for a longer period of time than prescribed by your doctor. Modafinil may decrease your sleepiness, but it will not cure your sleep disorder. Continue to take modafinil even if you feel well-rested. Do not stop taking modafinil without talking to your doctor. Modafinil should not be used in place of getting enough sleep. Follow your doctor's advice about good sleep habits. Continue to use any breathing devices or other treatments that your doctor has prescribed to treat your condition, especially if you have OSAHS. Are there OTHER USES for this medicine? This medication may be prescribed for other uses; ask your doctor or pharmacist for more information. What SPECIAL PRECAUTIONS should I follow? Before taking modafinil, ? tell your doctor and pharmacist if you are allergic to modafinil, armodafinil (Nuvigil), or any other medications. ? tell your doctor and pharmacist what prescription and nonprescription medications, vitamins, nutritional supplements, and herbal products you are taking or plan to take while taking modafinil. Your doctor may need to change the doses of your medications or monitor you carefully for side effects. ? the following nonprescription or herbal products may interact with modafinil: omeprazole (Prilosec). Be sure to let your doctor and pharmacist know that you are taking these medications before you start taking modafinil. Do not start any of these medications while taking modafinil without discussing with your healthcare provider. ? tell your doctor if you drink or have ever drunk large amounts of alcohol, use or have ever used street drugs, or have overused prescription medications, especially stimulants. Also tell your doctor if you have ever had chest pain, an irregular heartbeat, or other heart problems after taking a stimulant, and if you have or have ever had high blood pressure; a heart attack; chest pain; a mental illness such as depression, michelle (frenzied, abnormally excited mood), or psychosis (difficulty thinking clearly, communicating, understanding reality, and behaving appropriately); or heart, liver, or kidney disease. ? you should know that modafinil may decrease the effectiveness of hormonal contraceptives ( control pills, patches, rings, implants, injections, and intrauterine devices). Use another form of control while taking modafinil and for 1 month after you stop taking it. Talk to your doctor about types of control that will work for you during and after your treatment with modafinil. ? tell your doctor if you are , plan to become , or are breast-feeding. If you become while taking modafinil, call your doctor. ? if you are having surgery, including dental surgery, tell the doctor or dentist that you are taking modafinil. ? you should know that modafinil may affect your judgment or thinking and may not completely relieve the sleepiness caused by your disorder. Do not drive a car or operate machinery until you know how this medication affects you. If you avoided driving and other dangerous activities because of your sleep disorder, do not start performing these activities again without talking to your doctor even if you feel more alert. ? be aware that you should avoid drinking alcohol while taking modafinil. What SPECIAL DIETARY instructions should I follow? Talk to your doctor about eating grapefruit or drinking grapefruit juice while you are taking this medication. What should I do IF I FORGET to take a dose? You should skip the missed dose. Wait until the next time you are supposed to take modafinil, and then take your normal dose. If you take modafinil too late in your waking day, you may find it harder to go to sleep. Do not take a double dose to make up for a missed one. What SIDE EFFECTS can this medicine cause? Some side effects can be serious. If you experience any of these symptoms, call your doctor immediately: ? rash ? blisters ? peeling skin ? mouth sores ? hives ? itching ? hoarseness ? difficulty breathing or swallowing ? swelling of the face, throat, tongue, lips, eyes, hands, feet, ankles, or lower legs ? chest pain ? fast, pounding, or irregular heartbeat ? frenzied, abnormally excited mood ? hallucinating (seeing things or hearing voices that do not exist) ? anxiety ? depression ? thinking about killing or harming yourself Modafinil may cause other side effects. Call your doctor if you have any unusual problems while taking this medication. If you experience a serious side effect, you or your doctor may send a report to the Food and Drug Administration's (FDA) MedWatch Adverse Event Reporting program online (https://www.fda.gov/Safety/MedWatch) or by phone ( ). What should I know about STORAGE and DISPOSAL of this medication? Keep this medication in the container it came in, tightly closed, and out of reach of children. Store it at room temperature and away from excess heat and moisture (not in the bathroom). Store modafinil in a safe place so that no one else can take it accidentally or on purpose. Keep track of how many tablets are left so you will know if any are missing. Unneeded medications should be disposed of in special ways to ensure that pets, children, and other people cannot consume them. However, you should not flush this medication down the toilet. Instead, the best way to dispose of your medication is through a medicine take-back program. Talk to your pharmacist or contact your local garbage/recycling department to learn about take-back programs in your community. See the FDA's Safe Disposal of Medicines website (https://goo.gl/c4Rm4p) for more information if you do not have access to a take-back program. It is important to keep all medication out of sight and reach of children as many containers (such as weekly pill minders and those for eye drops, creams, patches, and inhalers) are not child-resistant and young children can open them easily. To protect young children from poisoning, always lock safety caps and immediately place the medication in a safe location -- one that is up and away and out of their sight and reach. https://www.upandaway.org What should I do in case of OVERDOSE? In case of overdose, call the poison control helpline at . Information is also available online at https://www.poisonhelp.org/help. If the victim has collapsed, had a seizure, has trouble breathing, or can't be awakened, immediately call emergency services at 083. Symptoms of overdose may include: ? difficulty falling asleep or staying asleep ? agitation ? restlessness ? confusion ? hallucinations (seeing things or hearing voices that do not exist) ? nervousness ? uncontrollable shaking of a part of the body ? fast, slow, or pounding heartbeat ? chest pain ? nausea ? diarrhea What OTHER INFORMATION should I know? Keep all appointments with your doctor. Do not let anyone else take your medication. Selling or giving away modafinil is against the law. Ask your pharmacist any questions you have about refilling your prescription. It is important for you to keep a written list of all of the prescription and nonprescription ([id number]) medicines you are taking, as well as any products such as vitamins, minerals, or other dietary supplements. You should bring this list with you each time you visit a doctor or if you are admitted to a hospital. It is also important information to carry with you in case of emergencies. This report on medications is for your information only, and is not considered individual patient advice. Because of the changing nature of drug information, please consult your physician or pharmacist about specific clinical use. The [employer] represents that the information provided hereunder was formulated with a reasonable standard of care, and in conformity with professional standards in the field. The [employer] makes no representations or warranties, express or implied, including, but not limited to, any implied warranty of merchantability and/or fitness for a particular purpose, with respect to such information and specifically disclaims all such warranties. Users are advised that decisions regarding drug therapy are complex medical decisions requiring the independent, informed decision of an appropriate health home care provider, and the information is provided for informational purposes only. The entire monograph for a drug should be reviewed for a thorough understanding of the drug's actions, uses and side effects. The [employer] does not endorse or recommend the use of any drug. The information is not a substitute for medical care. AHFS? Patient Medication Information?. ? Copyright, 2023. [employer]?, [address], [address], [place], [place]. All Rights Reserved. Duplication for commercial use must be authorized by [facility]. Selected Revisions: April 01, 2024. AHFS? Patient Medication Information?. ? Copyright, 2024 [facility] [place], [place]2025-01-15 10:44:31 Images from the original note were not included. [id number] Discharge Instructions for Transient Ischemic Attack (TIA) You have been diagnosed with a transient ischemic attack (TIA). A TIA is also known as a mini-stroke. Blood could not reach part of your brain for a short period of time. Unlike a stroke, a TIA does not usually cause lasting damage. If you think you are having symptoms of a TIA or stroke, get medical help right away. Do this even if your symptoms go away. Prevention ? Take your medicines exactly as directed. Don?t skip doses. ? Learn to take your blood pressure. Write down the numbers and tell your healthcare provider. ? Learn your cholesterol level. Follow your healthcare provider?s advice about how to keep cholesterol under control. Make these lifestyle changes: ? Quit smoking. Join a stop-smoking program to improve your chances of success. Ask your healthcare provider about medicines or other methods to help you quit. ? Limit your alcohol. Don't have more than 2 drinks a day if you're a man and no more than 1 drink a day if you're a woman. ? Keep a healthy weight. Get help to lose any extra pounds. If you are overweight, your healthcare provider will work with you to lose weight and lower your body mass index (BMI) to a normal or near-normal level. Making diet changes and increasing physical activity can help. ? Start an exercise program. Ask your healthcare provider how to get started and how much activity you should try to get on a daily or weekly basis. You can benefit from simple activities, such as walking or gardening. ? Learn ways to manage your stress. There are many methods to manage stress. These can help you deal with stress in your home and work life. You may also need to change what you eat. Your healthcare provider may refer you to a registered dietitian for help with diet changes. These changes may include: ? Eating less fat and cholesterol ? Having less salt (sodium), especially if you have high blood pressure ? Eating more fresh vegetables and fruits ? Eating lean proteins, such as fish, poultry, and legumes (beans and peas) ? Eating less red meat and processed meats ? Choosing low-fat dairy products ? Using vegetable and nut oils in small amounts ? Limiting sweet and processed foods, such as chips, cookies, and baked goods To cut back on sodium: ? Limit the amount of canned, dried, packaged, and fast foods you eat. ? Don?t add salt to your food. ? Season foods with herbs instead of salt when you cook. Follow-up care If you are taking certain medicines, you may need blood tests to check for progress or problems. Have blood tests as often as prescribed by your healthcare provider. Call 911 Call 911 right away if you have any of these: ? Weakness, tingling, or loss of feeling on 1 side of your face or body ? Sudden double vision, or trouble seeing in 1 or both eyes ? Sudden trouble talking, or slurring your speech ? Trouble understanding other people speaking ? Sudden, severe headache ? Dizziness, loss of balance, a spinning feeling, or a sense of falling ? Blackouts ? Seizures B.E. F.A.S.T. is an easy way to remember the signs of stroke. When you see these signs, you know that you need to call 911 fast. B.E. F.A.S.T. stands for: ? B is for balance. Sudden loss of balance or coordination. ? E is for eyes. Vision changes in one or both eyes. ? F is for face drooping. One side of the face is drooping or numb. When the person smiles, the smile is uneven. ? A is for arm weakness. One arm is weak or numb. When the person lifts both arms at the same time, one arm may drift downward. ? S is for speech difficulty. You may notice slurred speech or trouble speaking. The person can't repeat a simple sentence correctly when asked. ? T is for time to call 911. If someone shows any of these symptoms, even if they go away, call 911 right away. Make note of the time the symptoms first appeared. Last Reviewed Date: 2022 00:00:00 ? [id number] [employer]. All rights reserved. This information is not intended as a substitute for professional medical care. Always follow your healthcare professional's instructions. [facility] [place], [place]2025-01-10 17:27:00 The patient is Moderately Stable - Low risk of patient condition declining or worsening The patient's goals for the shift include participate in all therapies The clinical goals for the shift include remain free from falls Problem: Neurological Deficit Goal: Neurological status is stable or improving Outcome: Ongoing Goal: Maintain vital signs within ordered limits Outcome: Ongoing Goal: Oxygenation goal greater than 94% Outcome: Ongoing Problem: Activity Intolerance/Impaired Mobility Goal: Mobility/activity is maintained at optimum level for patient Outcome: Ongoing Goal: Maintains or returns to baseline bowel function Outcome: Ongoing Goal: Maintains or returns to baseline bladder function Outcome: Ongoing Problem: Communication Impairment Goal: Ability to express needs and understand communication Outcome: Ongoing Problem: Potential for Aspiration Goal: Non-ventilated patient's risk of aspiration is minimized Outcome: Ongoing Goal: Ventilated patient's risk of aspiration is minimized Outcome: Ongoing Problem: Infection Goal: Signs and symptoms of infections are decreased or avoided Outcome: Ongoing Goal: Oral health is maintained or improved Outcome: Ongoing Problem: Nutrition Goal: Nutritional status is improving Outcome: Ongoing Problem: Thrombolytic Therapy Goal: Monitor for angioedema Outcome: Ongoing Goal: Monitor for bleeding for 48 hours post tenectaplase/interventional procedures Outcome: Ongoing Problem: Bleeding Precautions Goal: Excessive bleeding will be minimized Outcome: Ongoing Problem: Respiratory distress related to problem list condition Goal: I will be free from signs and symptoms of respiratory distress as evidenced by clear and bilateral lung auscultation Outcome: Ongoing [facility] [place], [place]2025-01-10 11:00:00 Images from the original note were not included. 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] Cognitive communication deficit [R41.841] Hemiparesis affecting left side as late effect of stroke (CMS/HCC) (HCC) [I69.354] Neurogenic bowel [K59.2] Other abnormalities of gait and mobility [R26.89] 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] Other sleep disorders [G47.8] Wheelchair Evaluation General Information: General Therapist Name & Contact Information: Mikayla Guadalupe Family/Caregiver Present: No Caregiver Name/Relationship: Orlin, daughter Individuals Present at Eval: Mikayla, OT Mick, ATP Derrell, OT Alejo, pt Patient Medical History Reviewed: Yes Progressive Disease: No Height: 5'9" Weight: 181 Estimated Length of Need: lifetime of equipment Supplier Name and/or Contact Information: Ninobharatalan Ellisonkathleen, Supplier Participation: Supplier participated in product selection during wheelchair clinic Funding Information: [employer] Medicare Advantage Home Environment: Home Environment Living Situation: Home with family care Lives with: Adult child(bruce) Lives in: Multilevel home Wheelchair stored: Home Bathing Type: Walk in shower Anticipated Need for Home Medication: No Home Setup: Home Setup & Responsibilities Primary Bedroom Location: 1st floor Primary Bedroom Accessible?: Yes Primary Bedroom Kyra/Carpet: Tile Primary Bathroom Location: 1st floor Primary Bathroom Accessible?: Yes Primary Bathroom Kyra/Carpet: Tile Kitchen Location: 1st floor Kitchen Accessible?: Yes Kitchen Kyra/Carpet: Tile Living Room Location: 1st floor Living Room Accessible?: Yes Living Room Kyra/Carpet: Tile Current Seating and Mobility: Current Seating and Mobility Does the patient have current seating/mobility?: No Wheelchair Mobility: Wheelchair Mobility Bed to and from chair: Partial/Moderate Assistance Wheelchair to and from commode: Partial/Moderate assistance Manual wheelchair propulsion: Supervision/Touching assistance Extremities used for propulsion: Left foot, Right foot Functional: Functional Wheelchair Loading Method: Caregiver performs Wheelchair Storage During Transport: Trunk Wheelchair Tie Downs Used: None Sensation Assessment: Sensation Assessment Sensation: Unable to assess Description of Sensation: Cognitive deficits present; significant vision/left inattention - variability in severity depending upon time of day Able to Perform Effective Pressure Relief: Yes Method of Pressure Relief: Lateral lean, Forward lean Skin Integrity: Skin Integrity Current Skin Integrity: At risk from prolonged sitting, Open area Skin Abnormality Description: UEs with more open areas and prone to skin tears Sitting Tolerance: 3 hours BID or more ADL Status: ADL Status Eating: Partial/Moderate assistance Grooming/Hygiene: Partial/Moderate assistance Dressing: Substantial Assist Bathing: Substantial Assist Toileting: Substantial Assist Meal Prep: Dependent Home Management: Dependent Bowel Management: Incontinent Bladder Management: Incontinent Confined to bed without a wheelchair?: Yes Caregiver assistance needed?: Yes UE Mat Evaluation: Upper Extremity Mat Eval - Head and Neck Head and Neck Position: Rotated right Head Control: Good Upper Extremity Mat Eval - Left Shoulder Function: WFL ROM: WFL Strength: WFL Upper Extremity Mat Eval - Left Elbow Function: WFL ROM: WFL Strength: WFL Upper Extremity Mat Eval - Left Wrist/Hand Function: WFL ROM: WFL Strength: WFL Upper Extremity Mat Eval - Right Shoulder Function: WFL ROM: WFL Strength: WFL Upper Extremity Mat Eval - Right Elbow Function: WFL ROM: WFL Strength: WFL Upper Extremity Mat Eval - Right Wrist/Hand Function: WFL ROM: WFL Strength: WFL Upper Extremity Tone Left Upper Extremity Tone: Normal Right Upper Extremity Tone: Normal LE Mat Evaluation: Trunk and Lower Extremity Mat Eval - Trunk Anterior/Posterior: Increased thoracic kyphosis, Partially flexible Left/Right: Convex right, Partially flexible Rotation Shoulders & Upper Trunk: Left anterior, Flexible Trunk and Lower Extremity Mat Eval - Hips Position: Neutral Windswept: Neutral Trunk and Lower Extremity Mat Eval - Knees and Feet Left Knee ROM: WFL Right Knee ROM: WFL Foot Positioning: WFL Trunk and Lower Extremity Mat Eval - Pelvis Anterior/Posterior: Posterior, Flexible Obliquity: RT lower, Flexible Rotation-Pelvis: Left forward, Flexible Seating and Positioning Balance & Transfers: Seating & Positioning - Balance and Transfers Sitting Balance: Independent (Variable - dependent upon changes in cognition) Transfer Type: Requires assistance, Stand pivot Standing Balance: Requires assistance (Variable - dependent upon changes in cognition) Seating Measurements: Seating Measurements 1. Top of head to bottom of buttocks (in inches): 32 2. Top left shoulder to bottom of buttocks (in inches): 22.5 2. Top right shoulder to bottom of buttocks (in inches): 22.5 3. Left arm pit to bottom of buttocks (in inches): 17 3. Right arm pit to bottom of buttocks (in inches): 17 4. Left elbow to bottom of buttocks (in inches): 7 4. Right elbow to bottom of buttocks (in inches): 7 5. Back of buttocks to back of left knee (in inches): 21 5. Back of buttocks to back of right knee (in inches): 21 6. Left foot length (in inches): 12 6. Right foot length (in inches): 12 8. Shoulder width (in inches): 19.5 9. Arm pit to arm pit (in inches): 13.5 10. Hip width (in inches): 16 11. Lt popliteal to lt heel distance to bottom of lt leg (in inches): 19.5 12. Rt popliteal to rt heel distance to bottom of rt leg (in inches): 19.5 13. Left inferior scapula angle to bottom of buttocks (in inches): 16.5 13. Rt inferior scapula angle to bottom of buttocks (in inches): 16.5 Assessment: Therapy Assessment Prognosis: Good Evaluation/Treatment Tolerance: Patient tolerated treatment well Goals: Encounter Goals Encounter Goals (Active) Patient will perform grooming with minimum assist for improved independence with ADLs (Progressing) Start: 09/06/24 Expected End: 09/27/24 Patient will perform feeding with minimum assist for improved independence with ADLs (Progressing) Start: 09/06/24 Expected End: 09/27/24 Patient will perform upper body dressing with minimum assist to improve independence with dressing. (Progressing) Start: 09/06/24 Expected End: 09/27/24 Patient will perform lower body dressing with moderate assist to improve independence with dressing. (Progressing) Start: 09/06/24 Expected End: 09/27/24 Pt and/or caregiver(s) will have all appropriate DME, recommendations, or completed prescriptions to maximize pt's safety and independence at discharge. (Progressing) Start: 09/06/24 Expected End: 09/27/24 Goal Note W/c clinic completed; OT finishing script Patient and/or caregivers will verbalize understanding of home program including safety tips, equipment instructions, and home exercises. (Progressing) Start: 09/06/24 Expected End: 09/27/24 Encounter Goals (Resolved) Patient will participate in forced use activities using the affected upper extremity with minimum assistance to inhibit abnormal movement patterns. (Completed) Start: 09/06/24 Expected End: 09/27/24 Resolved: 09/25/24 Patient will incoporate their affected upper extremity with minimal assist/cues during functional task performance. (Completed) Start: 09/06/24 Expected End: 09/27/24 Resolved: 09/25/24 Patient will participate in seating and mobility trials to improve posture, reduce tone, and prevent secondary complications. (Completed) Start: 09/06/24 Expected End: 09/27/24 Resolved: 09/25/24 Equipment: Manual Wheelchair Recommendations and Justifications Manual mobility assistive equipment coverage criteria: Due to mobility limitations, patient requires this mobility base in order to accomplish MRADLs in a SAFE manner. Due to mobility limitations, patient requires this mobility base in order to accomplish MRADLs in a TIMELY manner. Use of a walker or cane will NOT allow this patient to participate in MRADLs in a safe and timely manner. This patient has sufficient upper and/or lower extremity strength to self-propel an optimally configured manual wheelchair. Manual wheelchair seat and back coverage criteria: This patient's medical condition requires use of the prescribed wheelchair back and seat cushion for these reasons: This patient's medical condition and diagnosis causes significant postural asymmetries. Type of manual mobility base: K5 Ultra Light Weight Multi-Adjustable Manual Wheelchair Justification: This patient has demonstrated the cognitive and physical ability to independently and functionally self-propel this wheelchair. Reasons unable to propel lower class chair: This patient's medical condition and the weight of the wheelchair affects the patient's ability to self-propel while engaging in frequent MRADLs that cannot be performed in a standard, lightweight wheelchair, or high strength lightweight wheelchair. This patient is unable to utilize a lower level mobility device due to the weight and minimal adjustability of a lower level manual wheelchair base. This patient has demonstrated significant progression with seating and mobility trials that demonstrate the need for this higher level manual wheelchair base. This patient requires this wheelchair base to enable optimal positioning and adjustment of multiple features that include axle configuration, wheel camber, seat slope, seat and back angles to optimally enable patient's w/c propulsion and positioning. This patient requires this wheelchair base with adjustable axle configuration, wheel camber, & center of gravity to allow for optimal positioning to permit proper push stroke technique and shoulder preservation. This patient requires this wheelchair base with adjustable axle configuration, seat slope, and seat to back angle to allow for optimal positioning to provide support for limited trunk control and trunk balance. This patient requires this wheelchair base with adjustable center of gravity to allow for independent propulstion over all home floor surfaces and thresholds. This patient requires this ultra-lightweight multi-adjustable wheelchair to enable this patient to accomplish mobility related ADL and accomplish a more independent lifestyle. This patient requires this ultra-lightweight multi-adjustable wheelchair to allow for safety and independence with loading/unloading from personal vehicle. This patient is a highly active, full-time manual wheelchair user. Manual Mobility Base General Description and Justification [employer] Supervisor: [employer] Model: vzaar 2 Frame Color: Matte [place] Seat Width: 17 inches Seat Depth: 18 inches Back Cane Height: 19 inches From Seat Alva Set At: 17 inches Justification: Increases ease in loading wheelchair into vehicle. Is not a safe, functional ambulator. Maximizes efficiency with propulsion. Patient's home is accessible. Promotes independent mobility. Unable to ambulate. Unable to use a cane/walker for mobility. Frame Frame Type: Ultra light weight Frame Style: Folding Justification: Allows for loading into vehicle. Fatigue management. High active use. Joint protection. Requires adjustable axle plate for push stroke. Requires lower seat to floor height for wheelchair propulsion. Seat Height Seat to Floor Front: 17 inches Seat to Floor Rear: 16 inches Justification: Accomodation of leg length. Facilitates transfers. Foot propulsion. Push Handles Push Handles: Integrated Justification: 8 degree back bend for back positioning. Allows for loading into vehicle. Hand Rim Hand Rim Type: Aluminum Justification: Promotes independent mobility. 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 Allows for more ergonomic position. Prevents further upper limb dysfunction. Provides ability to propel manual wheelchair. Wheel and Tire Wheel Size: 24 inches Wheel Style/Spokes: Mag wheels Tire Style: Pneumatic with airless inserts Justification: Decreases maintenance. Durability. Increases access to wheel. Optimizes wheelchair propulsion. Decreases cost related to repair over the life of the wheelchair. Wheel size needed to achieve recommended seat to floor height. Wheel Locks Wheel locks: Push to lock and Lock extensions Justification: Promotes independent mobility. Decreased balance. Decreased UE strength, ROM and/or tone. Decreased visual perception. Facilitates independence in locking wheels. Increased length for access to wheel locks. Locks wheelchair for transfers. Axle Axle: Quick release Justification: Allows wheels to be removed for maintenance. Decreases weight for loading/unloading. Decreases width of wheelchair for storage. [place] [facility] [place] Set At: 2 Justification: Promotes independent mobility. Adjustable to promote optimal positioning for postural stability during propulsion. Aides in upper limb preservation. Allows MRADLs during typical day. Allows MRADLs on all surfaces. Improves independence of higher level mobility. Increase stability. Optimizes wheelchair propulsion. Sheron Sheron: Semi pneumatic Sheron Size: 5 x 1.5 inches Foot Plate/Platform Foot Plate/Platform: Aluminum and Angle adjustable Justification: Provides foot support. Footrests Footrests/Data Governance Consultant: Swing away Front angle of foot rests: 70 degree Justification: Provides LE support. Facilitates transfers. Armrests Armrests: Flip back, Height adjustable, and Dual-post Arm pads: Full length Justification: Cannot be accompanied by standard arm rests. Patient spends at least 2 hours daily in wheelchair. Provides support for upper extremities. Seat/Back Upholstery Seat/Back Upholstery/Support Seat/Type: Omit back upholstery Anti-Tippers Anti-tippers: bilateral antitippers Justification: Reduces risk of wheelchair tipping backward when maneuvering on unleveled surfaces or navigating ramps. Seat Cushion Seat Cushion Type: M2 antithrust cushion Seat Cushion Size: 17 x18 inches Seat Cushion Features: Solid seat insert Justification: Accomodates multiple deformity. Accomodates obliquity. Increases pressure distribution. Low maintenance. Neutralizes LE positioning. Prevents pelvic extension. Stabilizes pelvis. Prevents sagging of seat sling. Cushion Cover Replacement: No Back Backrest Type: Matrx E2 deep backrest Back Size: 17 wide x 14 tall inches Justification: Provides lumbar/sacral support. Supports trunk in midline. Provides lateral trunk support. Reduces risk for further spinal deformity. Provides posterior trunk support. Mounting Hardware for back type: Adjustable Justification: Allows for mounting of the solid back to the wheelchair. Allows the back to be removed for loading and unloading into a vehicle. Accomodates postural asymmetries. Pelvic Positioner Pelvic Positioner Type: Standard Pelvic Positioner Safety Cover: with safety cover - body point Justification: Prevents excessive rotation. Requirement for safety during propulsion. Additional Justification: Push handles: 8 degree bend push handle for postural control (keeping bilateral shoulders from pressing on back canes), and allowing back bend for backrest positioning. Backrest: Pt presents with posterior pelvic tilt, obliquity, and rotation - requiring increased posterior trunk support for increased neutral alignment. Standard sling/soft/cloth back increases posterior pelvic tilt, flat back, abducted scapula, rounded shoulders, and forward head/neck. Cushion: The lightweight feature of this cushion will benefit the patient by keeping the seating system as light as possible for efficient BLE propulsion. Wheels: By providing this tire size and style, it will allow pt ease in propelling over a variety of terrains. Anti-tippers: Reduces risk of w/c tipping backward when maneuvering on unlevel surfaces or navigating ramps. Attestation [facility] Evaluation: The beneficiary has completed specialty evaluation that was performed by a licensed/certified medical professional (LCMP), who has specific training and experience in complex rehabilitation wheelchair evaluations and documented the medical necessity for the wheelchair and its special features. 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] Cognitive communication deficit [R41.841] Hemiparesis affecting left side as late effect of stroke (CMS/HCC) (HCC) [I69.354] Neurogenic bowel [K59.2] Other abnormalities of gait and mobility [R26.89] 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 Functional Deficits Include: impaired transfer status, impaired ambulation status, impaired motor control, impaired motor planning/sequencing, decreased endurance, impaired standing balance, impaired sitting balance, decreased independence with activities of daily living, decreased independence with functional mobility. Neuromuscular Deficits Include: decreased strength, decreased range of motion,coordination problems Cognitive Deficits Include: Decreased safety awareness, problem solving skill limitation Reasons and Justifications Bathroom Equipment: Drop arm Commode and tub transfer bench After trialing this equipment and demonstrating increased independence with ADLs and self-care needs, we recommend the following equipment as being medically necessary to allow the patient to safely function at full potential. Provides a safe sitting surface during bathing and decreases the risk of slipping on wet surfaces. Affords better hygiene than a bed bath. Relieves family members from the undue stresses of transferring the patient to the bottom of the bathtub. Makes the transfer safer by providing a surface which is at the same level as the wheelchair. A cut out seat with bucket attachment provides versatile use as a commode chair. Evaluating Therapist Electronic Signature: Thelma Cuevas PT 09/19/24 5:01 PM Cosigned by Bernadette Nortno MD at 09/21/2024 1:59 PM MANAGER WIRELESS GER WIRELESS GER WIRELESS Associated attestation - Bernadette Norton MD - 09/21/2024 1:59 PM MANAGER WIRELESS I prescribe this equipment as being medically necessary to allow this patient to safely function at full potential. This equipment will help reduce penitentiary costs associated with complications and/or hospitalizations. [id number] 03:13:03 Problem: Neurological Deficit Goal: Neurological status is stable or improving Outcome: Ongoing Goal: Maintain vital signs within ordered limits Outcome: Progressing Goal: Oxygenation goal greater than 94% Outcome: Progressing Problem: Activity Intolerance/Impaired Mobility Goal: Mobility/activity is maintained at optimum level for patient Outcome: Progressing Goal: Maintains or returns to baseline bowel function Outcome: Ongoing Goal: Maintains or returns to baseline bladder function Outcome: Ongoing Problem: Communication Impairment Goal: Ability to express needs and understand communication Outcome: Progressing Problem: Nutrition Goal: Nutritional status is improving Outcome: Ongoing Problem: Bleeding Precautions Goal: Excessive bleeding will be minimized Outcome: Progressing Problem: Respiratory distress related to problem list condition Goal: I will be free from signs and symptoms of respiratory distress as evidenced by clear and bilateral lung auscultation Outcome: Progressing [facility]2025-01-03 16:07:43 The patient is Moderately Stable - Low risk of patient condition declining or worsening The patient's goals for the shift include Improve strength and cognition with therapies The clinical goals for the shift include Improve strength and cognition with therapies Problem: Infection Goal: Oral health is maintained or improved Outcome: Met Problem: Neurological Deficit Goal: Oxygenation goal greater than 94% Outcome: Deferred Problem: Thrombolytic Therapy Goal: Monitor for angioedema Outcome: Deferred Goal: Monitor for bleeding for 48 hours post tenectaplase/interventional procedures Outcome: Deferred Problem: Bleeding Precautions Goal: Excessive bleeding will be minimized Outcome: Deferred Problem: Respiratory distress related to problem list condition Goal: I will be free from signs and symptoms of respiratory distress as evidenced by clear and bilateral lung auscultation Outcome: Deferred Problem: Neurological Deficit Goal: Neurological status is stable or improving 09/15/2024 1553 by Lashaun Celestin RN Outcome: Progressing 09/15/2024 1126 by Lashaun Celestin RN Outcome: Progressing Goal: Maintain vital signs within ordered limits Outcome: Progressing Problem: Activity Intolerance/Impaired Mobility Goal: Mobility/activity is maintained at optimum level for patient Outcome: Progressing Goal: Maintains or returns to baseline bowel function Outcome: Progressing Goal: Maintains or returns to baseline bladder function Outcome: Progressing Problem: Communication Impairment Goal: Ability to express needs and understand communication Outcome: Progressing Problem: Potential for Aspiration Goal: Non-ventilated patient's risk of aspiration is minimized Outcome: Progressing Goal: Ventilated patient's risk of aspiration is minimized Outcome: Progressing Problem: Infection Goal: Signs and symptoms of infections are decreased or avoided Outcome: Progressing Problem: Nutrition Goal: Nutritional status is improving Outcome: Progressing GER WIRELESS [facility] [id number] 16:02:14 The patient is Moderately Stable - Low risk of patient condition declining or worsening The patient's goals for the shift include Improve strength and cognition with therapies The clinical goals for the shift include Improve strength and cognition with therapies Problem: Infection Goal: Oral health is maintained or improved Outcome: Met Problem: Neurological Deficit Goal: Oxygenation goal greater than 94% Outcome: Deferred Problem: Thrombolytic Therapy Goal: Monitor for angioedema Outcome: Deferred Goal: Monitor for bleeding for 48 hours post tenectaplase/interventional procedures Outcome: Deferred Problem: Bleeding Precautions Goal: Excessive bleeding will be minimized Outcome: Deferred Problem: Respiratory distress related to problem list condition Goal: I will be free from signs and symptoms of respiratory distress as evidenced by clear and bilateral lung auscultation Outcome: Deferred Problem: Neurological Deficit Goal: Neurological status is stable or improving 09/15/2024 1553 by Lashaun Celestin RN Outcome: Progressing 09/15/2024 1126 by Lashaun Celestin RN Outcome: Progressing Goal: Maintain vital signs within ordered limits Outcome: Progressing Problem: Activity Intolerance/Impaired Mobility Goal: Mobility/activity is maintained at optimum level for patient Outcome: Progressing Goal: Maintains or returns to baseline bowel function Outcome: Progressing Goal: Maintains or returns to baseline bladder function Outcome: Progressing Problem: Communication Impairment Goal: Ability to express needs and understand communication Outcome: Progressing Problem: Potential for Aspiration Goal: Non-ventilated patient's risk of aspiration is minimized Outcome: Progressing Goal: Ventilated patient's risk of aspiration is minimized Outcome: Progressing Problem: Infection Goal: Signs and symptoms of infections are decreased or avoided Outcome: Progressing Problem: Nutrition Goal: Nutritional status is improving Outcome: Progressing [id number] 15:54:34 The patient is Moderately Stable - Low risk of patient condition declining or worsening The patient's goals for the shift include Improve strength and cognition with therapies The clinical goals for the shift include Improve strength and cognition with therapies Over the shift, the patient did not make progress toward the following goals. Barriers to progression include constipation/discomfort . Recommendations to address these barriers include medications and hydration . [facility] [place], [place]2024-12-27 17:03:17 The patient is Moderately Stable - Low risk of patient condition declining or worsening The patient's goals for the shift include regulate BP and BG The clinical goals for the shift include remain free from injury Problem: Neurological Deficit Goal: Oxygenation goal greater than 94% Outcome: Ongoing Problem: Neurological Deficit Goal: Neurological status is stable or improving Outcome: Progressing Goal: Maintain vital signs within ordered limits Outcome: Progressing Problem: Activity Intolerance/Impaired Mobility Goal: Mobility/activity is maintained at optimum level for patient Outcome: Progressing Goal: Maintains or returns to baseline bowel function Outcome: Progressing Goal: Maintains or returns to baseline bladder function Outcome: Progressing Problem: Communication Impairment Goal: Ability to express needs and understand communication Outcome: Progressing Problem: Potential for Aspiration Goal: Non-ventilated patient's risk of aspiration is minimized Outcome: Progressing Problem: Infection Goal: Signs and symptoms of infections are decreased or avoided Outcome: Progressing Goal: Oral health is maintained or improved Outcome: Progressing Problem: Nutrition Goal: Nutritional status is improving Outcome: Progressing Problem: Respiratory distress related to problem list condition Goal: I will be free from signs and symptoms of respiratory distress as evidenced by clear and bilateral lung auscultation Outcome: Progressing [facility] [place] [place]2024-12-27 10:55:00 Informed PM&R MD about patient being hypo aroused during PT session and when nursing arrived to bedside (attempted to wake pt with sternal rub and painful stimuli to nail bed multiple times) Vitals were as follows (11:09 BP 122/50 HR 74 Blood sugar 157 O2 98%). MD came to bedside shortly after. [facility]2024-12-27 03:44:09 The patient is Moderately Stable - Low risk of patient condition declining or worsening The patient's goals for the shift include patient maintains safety, patient sleeps well The clinical goals for the shift include blood sugar remains stable Over the shift, the patient did make progress toward the following goals. [facility]2024-12-26 18:15:00 Notified IM and PM&R about holding 75mg losartan as DBP running low all day and BP reading was 127/56 at 1811.Informed MD that pharmacy was called and they recommended to hold as well. [place] [id number] 12:42:00 Notified IM and PM&R of pts BP at 1123 84/58 with PT and application of abdominal binder, MAHOGANY hose and tilted chair resulting in BP rising. Rechecked at 1230 105/61 sitting upright at 1236 BP 131/[address] [facility] [place], [place]2024-12-26 09:20:00 Messaged IM and PM&R about pt's BG being labile and concerns about pt's scheduled and sliding scale insulin. [place] [id number] 03:26:14 Problem: Neurological Deficit Goal: Neurological status is stable or improving Outcome: Met Goal: Maintain vital signs within ordered limits Outcome: Met Goal: Oxygenation goal greater than 94% Outcome: Met Problem: Activity Intolerance/Impaired Mobility Goal: Mobility/activity is maintained at optimum level for patient Outcome: Progressing Goal: Maintains or returns to baseline bowel function Outcome: Progressing Goal: Maintains or returns to baseline bladder function Outcome: Progressing Problem: Communication Impairment Goal: Ability to express needs and understand communication Outcome: Progressing Problem: Potential for Aspiration Goal: Non-ventilated patient's risk of aspiration is minimized Outcome: Met Goal: Ventilated patient's risk of aspiration is minimized Outcome: Met Problem: Infection Goal: Signs and symptoms of infections are decreased or avoided Outcome: Met Goal: Oral health is maintained or improved Outcome: Met Problem: Nutrition Goal: Nutritional status is improving Outcome: Met Problem: Thrombolytic Therapy Goal: Monitor for angioedema Outcome: Met Goal: Monitor for bleeding for 48 hours post tenectaplase/interventional procedures Outcome: Met Problem: Bleeding Precautions Goal: Excessive bleeding will be minimized Outcome: Met Problem: Respiratory distress related to problem list condition Goal: I will be free from signs and symptoms of respiratory distress as evidenced by clear and bilateral lung auscultation Outcome: Met [facility] [id number] 05:03:07 Problem: Neurological Deficit Goal: Neurological status is stable or improving Outcome: Met Goal: Maintain vital signs within ordered limits Outcome: Met Goal: Oxygenation goal greater than 94% Outcome: Met Problem: Activity Intolerance/Impaired Mobility Goal: Mobility/activity is maintained at optimum level for patient Outcome: Progressing Goal: Maintains or returns to baseline bowel function Outcome: Progressing Goal: Maintains or returns to baseline bladder function Outcome: Progressing Problem: Communication Impairment Goal: Ability to express needs and understand communication Outcome: Progressing Problem: Potential for Aspiration Goal: Non-ventilated patient's risk of aspiration is minimized Outcome: Met Goal: Ventilated patient's risk of aspiration is minimized Outcome: Met Problem: Infection Goal: Signs and symptoms of infections are decreased or avoided Outcome: Met Goal: Oral health is maintained or improved Outcome: Met Problem: Nutrition Goal: Nutritional status is improving Outcome: Progressing Problem: Thrombolytic Therapy Goal: Monitor for angioedema Outcome: Met Goal: Monitor for bleeding for 48 hours post tenectaplase/interventional procedures Outcome: Met Problem: Bleeding Precautions Goal: Excessive bleeding will be minimized Outcome: Met Problem: Respiratory distress related to problem list condition Goal: I will be free from signs and symptoms of respiratory distress as evidenced by clear and bilateral lung auscultation Outcome: Met [facility] [id number] 17:06:17* Consultation (Routine) - Pending Review Specialty Diagnoses / Procedures Referred By Reid marroquin Referred To Contact Neurology Diagnoses Acute ischemic stroke (HCC) Cerebrovascular accident (CVA), unspecified mechanism (HCC) Procedures HI OFFICE/OUTPATIENT NEW HIGH MDM 60-74 MINUTES Zheng Red MD [address] [place] [address] Phone: tel: fax: Referral ID Status Reason Start Date Expiration Date Visits Requested Visits Authorized [id number] Pending Review Specialty Services Required 4 03/01/2025 1 1 GER WIRELESS * Consultation (Routine) - Pending Review Specialty Diagnoses / Procedures Referred By Contac t Referred To Contact Vascular Surgery Diagnoses Peripheral vascular disease (HCC) Procedures HI OFFICE/OUTPATIENT NEW HIGH MDM 60-74 MINUTES Zheng Red MD [address] [place] [address] Phone: tel: fax:[phone] Referral ID Status Reason Start Date Expiration Date Visits Requested Visits Authorized [id number] Pending Review Specialty Services Required 4 03/02/2025 1 1 GER WIRELESS [id number] 17:06:17* * Auth/Cert (Routine) Specialty Diagnoses / Procedures Referred By Contac t Referred To Contact Diagnoses Acute ischemic stroke (HCC) Procedures HI [address] [place] [address] IP/OBS CARE SF/LOW MDM 40 MINUTES Chaitanya Lewis MD [facility] [address] Phone: tel: fax: [facility] ([place] [facility] E Stroke) [address] [place] [id number] Phone: tel: Referral ID Status Reason Start Date Expiration Date Visits Re quested Visits Authorized [id number] 1 1 [facility] [id number] 17:06:17* Jose Thurston MD - 09/05/2024 4:03 PM MANAGER WIRELESS Brief Endocrinology Note Assessment: The patient is a 78 y.o. male w PMH of ischemic stroke with no residual deficits, hypertension, diabetes type 2, lung cancer with last treatment approximately 2 years ago presented to [facility] via [facility] as a code stroke for left-sided weakness. Endocrinology consulted for assistance with management of T2DM. Problem list: T2DM Recommendations: - reduce dose of glargine to 30 U daily - cont lispro 8 U TID with meals - continue lispro SSI (listed in Epic as "starting dose") Plan was discussed with Dr. Torres. Thank you for the opportunity to participate in the care of this patient. We will continue to follow. Please page with any questions or concerns. Jose Thurston MD PGY-4 Endocrinology Fellow [facility] Cosigned by Librado Torres MD at 09/05/2024 4:24 PM MANAGER WIRELESS GER WIRELESS GER WIRELESS * Cody Mccabe RN - 09/05/2024 2:24 PM MANAGER WIRELESS Final Discharge Disposition: Inpatient Rehab Facility MOT Received Date and Time: 09/05/2024 @ 1345 Received From: Reina Facility Name: [facility] Address: [address] [place] [address] Room Number: 332A Nursing Unit # for Report: [phone] Accepting MD: Dr. Norton Accepting Director Of Outside Sales: Winsome Smith Referral Date: 08/21/2024 Referral Time: 1237 Ambulance Arrangements Pt/family's ambulance choice: [facility] ([phone]/ [phone]) LOS: BLS, PCS Form Completed (for Medicare Patients): Yes Please call [facility] / [phone] for delays or any transportation issue. Pickup Date: 09/05/24 Pickup Time: 1545 Notification Patient/Family: DaughterOrlin Primary MD/Primary Team: Stroke Team A ([id number]) Primary Nurse: Parker BRANTLEY completed and placed on chart/given to primary nurse. Please call After-Hours for discharge issues after 1700. Cody Mccabe RN Case Manager [phone] GER WIRELESS * JONATHAN NovoaAUTOCAD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 - 09/05/2024 1:44 PM MANAGER WIRELESS Speech-Language Pathology Encounter Note Patient Name: Chaitanya Tena Today's Date: 09/05/2024 Missed Treatment Time and Reason ST services arrived to see patient this am but Mr. Shelby was being cleaned. ST services will return as time permits. Thank you for this consult JONATHAN NovoaSLP GER WIRELESS * Jenna Marley PTA - 09/05/2024 1:20 PM MANAGER WIRELESS Treatment Session Note Patient Name: Chaitanya Tena Today's Date: 09/05/2024 Preferred Language: Tanzanian Assessment & Plan Assessment: Pt continues to perform to bed to chair transfers via stand/squat pivot mod-max A x2 and continues to progress towards his goals. See below for details. Plan: PT Discharge Recommendations: Inpatient rehab facility placement Jr Canales RN cleared pt for skilled PT intervention. Pt received supine in bed, female visiting at b/s, pt pleasant and agreed to participate in treatment. Pt left supine in bed, pt in NAD, all needs in reach, RN notified of status/end of visit. Objective PT Last Visit PT Received On: 09/05/24 Cognition Orientation Level: Disoriented to place, Disoriented to time, Disoriented to situation Treatment Therapeutic activity: Therapeutic Activity Therapeutic Activity Time Entry: 39 Therapeutic Activity 1: STS Therapeutic Activity 2: ADLs/Grooming Therapeutic Activity 3: Bed Mobility Therapeutic Activity 4: Static sitting/standing balance Therapeutic Activity 5: Bed to chair transfers Bed Mobility: Bed Mobility 1: Level of Assistance 1: Substantial/Max assistance Bed Mobility To/From: Roll left/right, Sitting EOB to supine, Supine to sit on EOB Transfers: Transfers 1: Technique 1: Stand step Level of Assistance 1: Partial/Mod assistance, Substantial/Max assistance Trials/Comments 1: Mod-max A x2 for STS Transfer To/From: [id number]-[id number]/Hgaui-zv-Fig, Bed AM-PAC Basic Mobility: AM-PAC Basic Mobility Inpatient Turning in bed without bedrails: A Little Lying on back to sitting on edge of flat bed: A Lot Bed to chair: A Lot Standing up from chair: A Little Walk in room: A Lot Climbing 3-5 stairs: A Lot Mobility Inpatient Raw Score: 14 -[facility] Goal: 4 Mobility: Highest Level of Mobility Performed (-HLM) -[facility] Goal: 4 Goals: Encounter Goals Encounter Goals (Active) Pt will demonstrate improved postural control requiring no more than min-mod A for static sitting balance in preparation for toilet transfers. Start: 08/20/24 Expected End: 09/03/24 Patient will complete rolling L/R with supervision in order to decrease risk for pressure injury development in supine Start: 08/20/24 Expected End: 09/03/24 Pt will transition from supine to/from sitting edge of bed with minimum assistance in order to sit EOB for ADL participation Start: 08/20/24 Expected End: 09/03/24 Patient will transfer bed to/from chair with minimum assistance and least restrictive device to increase upright tolerance and optimize cardiorespiratory function Start: 08/20/24 Expected End: 09/03/24 Patient will ambulate at least 50 feet over level surfaces with minimum assistance and least restrictive device in prep for household ambulation and community re-integrationn Start: 08/20/24 Expected End: 09/03/24 Encounter Goals (Resolved) Complete SLCE (Completed) Start: 08/20/24 Expected End: 09/03/24 Resolved: 08/23/24 Treatment Note: If this is the last documented treatment, then it will signify discharge from acute care prior to discharge from the therapy service and will serve as the discharge summary. Jenna Marley PTA GER WIRELESS * Elana Trejo OT - 09/05/2024 12:17 PM MANAGER WIRELESS Treatment Session Note Patient Name: Chaitanya Tena Today's Date: 09/05/2024 Preferred Language: Tanzanian Assessment & Plan Assessment: Pt is progressing with level of alertness and OOB mobility this session. Completed sit to stands with Mod A and sitting balance at EOB for 8 minutes with CGA. Drinking coffee with Mod A and completed self care Mod A. Pt will continue to benefit from acute OT services to address deficits. Precautions: UE Weight Bearing Status: FWB LE Weight Bearing Status: FWB Plan: Treatment Plan/Goals Established with Patient/Caregiver: Yes OT Plan: Skilled OT OT Frequency: 3-5 times per week until discharge OT Discharge Recommendations: Inpatient rehab facility placement OT Planned Treatments: Balance training, Activities of Daily Living, Patient education, Therapeutic exercises, Therapeutic activities, Energy conservation training, Mobility training, Neuromuscular reeducation, Safety education OT Duration: Discharge Subjective Pt lying in bed and agreeable to therapy session. Pain: Pain Assessment: DVPRS (09/05/2024 9:10 AM) Pain Score: 0 (09/05/2024 9:10 AM) Objective Self Care (ADL): Self Care/Home Management (ADLs) Time Entry: 30 Eating Assistance: Partial/Mod assistance Grooming Assistance: Partial/Mod assistance Toileting Assistance: Substantial/Max assistance Treatment Bed Mobility: Bed Mobility 1 Level of Assistance 1: Partial/Mod assistance Bed Mobility To/From: Roll left/right Bed Mobility 2 Level of Assistance 2: Partial/Mod assistance Bed Mobility To/From: Supine to sit on EOB Bed Mobility 3 Level of Assistance 3: Partial/Mod assistance Bed Mobility To/From: Sitting EOB to supine Transfers: Transfer 1 Level of Assistance 1: Partial/Mod assistance Trials/Comments 1: x3 stands Transfer To/From: Vcs-ja-Lledg/Xupjz-mw-Zba Therapeutic Activity Therapeutic Activity Time Entry: 17 Therapeutic Activity 1: sit to stands x3 Therapeutic Activity 2: bed mobility Mod A AM-PAC Daily Activity: Putting on and taking off regular lower body clothing: A Lot Bathing (including washing, rinsing, drying): A Lot Toileting, which includes using toilet, bedpan or urinal: A Lot Putting on and taking off regular upper body clothing: A Lot Taking care of personal grooming such as brushing teeth: A Lot Eating Meals: A Lot AM-PAC Daily Activity Raw Score: 12 Patient Education:Education Documentation No documentation found. Education Comments No comments found. Goals:Encounter Goals Encounter Goals (Active) Pt will demonstrate improved postural control requiring no more than min-mod A for static sitting balance in preparation for toilet transfers. Start: 08/20/24 Expected End: 09/03/24 Pt will complete txf supine>sit and bed>chair/BSC with Mod A to participate in self care tasks. Start: 08/20/24 Expected End: 09/10/24 Pt. will demonstrate improved oculomotor control seen by laterally tracking to L side 3/5 trials sustaining attention > 10 seconds Start: 08/20/24 Expected End: 09/03/24 Patient will complete UB/LD dressing with Min A Start: 08/20/24 Expected End: 09/10/24 Encounter Goals (Resolved) Complete SLCE (Completed) Start: 08/20/24 Expected End: 09/03/24 Resolved: 08/23/24 Treatment Note: If this is the last documented treatment, then it will signify discharge from acute care prior to discharge from the therapy service and will serve as the discharge summary. Elana Trejo OT GER WIRELESS * Elana Trejo OT - 09/04/2024 3:30 PM MANAGER WIRELESS Treatment Session Note Patient Name: Chaitanya Tena Today's Date: 09/04/2024 Preferred Language: Tanzanian Assessment & Plan Assessment: Pt is progressing with level of alertness this session. Pt is participating in ADL sin the bed, still had not eaten breakfast therefore assisting with eating at this time. Pt is completing taks MIAMI with Mod A due to difficulty with picking up food and assist to keep it steady to mouth. Pt also washing face Min A and brushing teeth mod A. Pt is limited by balance, activity tolerance, ADL completion, L side inattention, and safety awareness. Pt will continue to benefit from acute OT services to address deficits. Precautions: UE Weight Bearing Status: FWB LE Weight Bearing Status: FWB Plan: Treatment Plan/Goals Established with Patient/Caregiver: Yes OT Plan: Skilled OT OT Frequency: 3-5 times per week until discharge OT Discharge Recommendations: Inpatient rehab facility placement OT Planned Treatments: Balance training, Activities of Daily Living, Patient education, Therapeutic exercises, Therapeutic activities, Energy conservation training, Mobility training, Neuromuscular reeducation, Safety education OT Duration: Discharge Subjective Pt is lying in bed and agreeable to therapy session. Pain: Pain Assessment: DVPRS (09/04/2024 11:42 AM) Pain Score: 0 (09/04/2024 11:42 AM) Objective Self Care (ADL): Self Care/Home Management (ADLs) Time Entry: Eating Assistance: Partial/Mod assistance Grooming Assistance: Partial/Mod assistance Bathing Assistance: Partial/Mod assistance UE Dressing Assistance: Partial/Mod assistance LE Dressing Assistance: Partial/Mod assistance Toileting Assistance: Partial/Mod assistance ADL Comments: self feeding MIAMI with Mod A due to weakness, face washing Min A, oral care Mod A due to accuracy Treatment Self-Care: Self Care/Home Management (ADLs) Time Entry: 31 Eating Assistance: Partial/Mod assistance Grooming Assistance: Partial/Mod assistance Bathing Assistance: Partial/Mod assistance UE Dressing Assistance: Partial/Mod assistance LE Dressing Assistance: Partial/Mod assistance Toileting Assistance: Partial/Mod assistance ADL Comments: self feeding MIAMI with Mod A due to weakness, face washing Min A, oral care Mod A due to accuracy Bed Mobility: Bed Mobility 1 Level of Assistance 1: Partial/Mod assistance Bed Mobility To/From: Roll left/right Bed Mobility 2 Level of Assistance 2: Partial/Mod assistance Bed Mobility To/From: Supine to long sit Assistive Devices And Adaptive Equipments: No device Transfers: AM-PAC Daily Activity:Putting on and taking off regular lower body clothing: A Lot Bathing (including washing, rinsing, drying): A Lot Toileting, which includes using toilet, bedpan or urinal: A Lot Putting on and taking off regular upper body clothing: A Lot Taking care of personal grooming such as brushing teeth: A Lot Eating Meals: A Lot AM-PAC Daily Activity Raw Score: 12 Patient Education:Education Documentation No documentation found. Education Comments No comments found. Goals:Encounter Goals Encounter Goals (Active) Pt will demonstrate improved postural control requiring no more than min-mod A for static sitting balance in preparation for toilet transfers. Start: 08/20/24 Expected End: 09/03/24 Pt will complete txf supine>sit and bed>chair/BSC with Mod A to participate in self care tasks. Start: 08/20/24 Expected End: 09/10/24 Pt. will demonstrate improved oculomotor control seen by laterally tracking to L side 3/5 trials sustaining attention > 10 seconds Start: 08/20/24 Expected End: 09/03/24 Patient will complete UB/LD dressing with Min A Start: 08/20/24 Expected End: 09/10/24 Encounter Goals (Resolved) Complete SLCE (Completed) Start: 08/20/24 Expected End: 09/03/24 Resolved: 08/23/24 Treatment Note: If this is the last documented treatment, then it will signify discharge from acute care prior to discharge from the therapy service and will serve as the discharge summary. Elana Trejo OT GER WIRELESS * Cody Mccabe RN - 09/04/2024 2:37 PM MANAGER WIRELESS CASE MANAGEMENT ROUTINE DISCHARGE PLANNING NOTE LOS: 16 days BARRIERS: nutrition clearance + [facility] acceptance DISCHARGE PLAN A: [facility] (auth expires 09/11 (Auth #[id number])) DISCHARGE PLAN B: YUNG: 09/04/2024 Additional Comments: Pt pending nutrition clearance + [facility] acceptance today. Spoke w/ pt daughter, Orlin Vizcarra, to provide update. CM/SW will continue to follow patient for further DC planning needs. Cody Mccabe RN Case Manager [phone] GER WIRELESS * Jenna Marley PTA - 09/04/2024 2:00 PM MANAGER WIRELESS Treatment Session Note Patient Name: Chaitanya Tena Today's Date: 09/04/2024 Preferred Language: Tanzanian Assessment & Plan Assessment: Pt progressed to bed to chair transfers via stand/squat pivot mod-max A x2 and continues to progress towards his goals. See below for details. Plan: PT Discharge Recommendations: jail facility placement, Inpatient rehab facility placement Jr Noble RN cleared pt for skilled PT intervention. Pt received supine in bed, grandson visiting at b/s, pt pleasant and agreed to participate in treatment. Pt left supine in bed, VSS, grandson visiting at b/s, all needs in reach, RN notified of status/end of visit. Objective PT Last Visit PT Received On: 09/04/24 Activity Tolerance: Endurance: Tolerates 10 - 20 min exercise with multiple rests Sitting Balance: Performs 25% or less sitting activity Cognition Orientation Level: Disoriented to place, Disoriented to time, Disoriented to situation Treatment Therapeutic activity: Therapeutic Activity Therapeutic Activity Time Entry: 25 Therapeutic Activity 1: Static standing balance Therapeutic Activity 2: Static sitting balance Therapeutic Activity 3: Side steps @ EOB Therapeutic Activity 4: STS Bed Mobility: Bed Mobility 1: Level of Assistance 1: Substantial/Max assistance Bed Mobility To/From: Roll left/right, Sitting EOB to supine, Supine to sit on EOB Transfers: Transfers 1: Technique 1: Dependent lift Level of Assistance 1: Substantial/Max assistance Trials/Comments 1: STS max A x2 Transfer To/From: Bed, Tbi-vo-Feajl/Nqfvw-qy-Cnj AM-PAC Basic Mobility: AM-PAC Basic Mobility Inpatient Turning in bed without bedrails: A Lot Lying on back to sitting on edge of flat bed: A Lot Bed to chair: A Lot Standing up from chair: A Lot Walk in room: Total Climbing 3-5 stairs: Total Mobility Inpatient Raw Score: 10 -[facility] Goal: 4 Mobility: Highest Level of Mobility Performed ([facility]-HLM) -[facility] Goal: 4 Goals: Encounter Goals Encounter Goals (Active) Pt will demonstrate improved postural control requiring no more than min-mod A for static sitting balance in preparation for toilet transfers. Start: 08/20/24 Expected End: 09/03/24 Patient will complete rolling L/R with supervision in order to decrease risk for pressure injury development in supine Start: 08/20/24 Expected End: 09/03/24 Pt will transition from supine to/from sitting edge of bed with minimum assistance in order to sit EOB for ADL participation Start: 08/20/24 Expected End: 09/03/24 Patient will transfer bed to/from chair with minimum assistance and least restrictive device to increase upright tolerance and optimize cardiorespiratory function Start: 08/20/24 Expected End: 09/03/24 Patient will ambulate at least 50 feet over level surfaces with minimum assistance and least restrictive device in prep for household ambulation and community re-integrationn Start: 08/20/24 Expected End: 09/03/24 Encounter Goals (Resolved) Complete SLCE (Completed) Start: 08/20/24 Expected End: 09/03/24 Resolved: 08/23/24 Treatment Note: If this is the last documented treatment, then it will signify discharge from acute care prior to discharge from the therapy service and will serve as the discharge summary. Jenna Marley PTA GER WIRELESS * JONATHAN NovoaAUTOCAD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 - 09/04/2024 1:02 PM MANAGER WIRELESS Speech-Language Pathology Encounter Note Patient Name: Chaitanya Tena Today's Date: 09/04/2024 Missed Treatment Time and Reason ST services arrived to see patient this am but Mr. Aguilar was noted with decreased RAVI and was sleepy. ST services will return later in pm if time permits. Thank you for this consult JONATHAN NovoaSLP GER WIRELESS * Jaquelin Wilde - 09/03/2024 2:05 PM MANAGER WIRELESS Spiritual Care Subjective CCC Pastoral Visitor Alla Mcgregor visited with pt and 3 family members, provided pastoral presence, compassionate listening, hospitality and prayer to pt. GER WIRELESS * Jack Rivas MD - 09/03/2024 6:58 AM MANAGER WIRELESS Subjective NAEON. Vitals Stable, Not agitated overnight. Appetite is still poor. Will add mirtazapine for appetite. LINQ pending. ObjectiveLast Recorded Vitals Blood pressure 110/60, pulse (!) 101, temperature 36.7 ?C (98 ?F), resp. rate 19, height 1.78 m (5' 10.08"), weight 88 kg (194 lb), SpO2 96%. Physical Exam: Exam as of 8:15 AM 08/31 General: well nourished; responds to voice and answers questions appropriately; more responsive today HEENT: NCAT, anicteric sclera, mucus membranes moist CV: regular rate, intact peripheral pulses Pulm: breathing comfortably, no wheezing, symmetric chest expansion Abd: soft, non-tender, non-distended Ext: skin clear, no rashes, no edema Neuro Exam:Opens eyes spontaneously; appropriate verbal response to questions Language: appropriate verbal response Speech: mild dysarthria and dysphagia (improving dysphagia); LFD CN: eyes closed. Anisocoria - right pupil 2 mm, left 3 mm, reactive to light bilaterally. Motor: Normal tone and bulk, no abnormal movements. 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 NIHSS 17, pre-admit MRS 0, Found to have R1 occlusion s/p TNK at 1:45 PM and EVT with TICI 2b. He continues to improve in his mentation and is now completed Abx for CAP. However inflammatory markers remain low. R MCA large territory infarct with mild hemorrhagic transformation. 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 Passed for dysphagia diet. NEUROLOGICR M1 Occlusion NIHSS 10-19 (R29.71) on admission Etiology: (ESUS)TNK @ 1:45 PM 08/19 EVT TICI 2b with 1 pass Repeat CTH-No hemorrhage MRI brain - R MCA large territory infarct with mild hemorrhagic transformation - A1c 9.40, LDL 86 StrokeContinue Atorvastatin 80 mg Continue ASA 324 mg Plavix 75mg Will likely need DAPT for 21 days per minor stroke PT/OT/ST AgitationModafinil Delirium precautions CARDIOVASCULAREssential hypertension (I10) on admission PAD Temp: [36.3 ?C (97.3 ?F)-37.1 ?C (98.8 ?F)] 36.4 ?C (97.6 ?F) Heart Rate: [73-102] 77 Resp: [15-26] 19 BP: (113-168)/(55-79) 150/65 VS Parameters: SBP <160PRN none Troponin [id number] EKG revealed Sinus Rhythm Qtc: 390TTE negative 55% LVEF Atrial size normal, no pericardial effusion sub-optimal valvular assessment Right LE doppler 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 Complete occlusion of the left posterior tibialis artery Vascular Surgery consult Dr. Barajas as an outpatient for further evaluation. Plan:Amlodipine 10 mg daily Increased Losartan to 75mg daily PULMONARYAcute resp failure unspecified (J96.00) on admission Hx of possible lung malignancy Plan:Continue to monitor - Completed Ceftriaxone 1g x 5 days - Completed Azithromycin 08/29/2024 GASTROINTESTINAL Dysphagia unspecified (R13.1) on admission Nutrition: tube feedsGI route: NGT/Cortrak GI ppx: Pepcid q12h/BID bowel regimen: docusate, senna, miralax q12h last BM YARN DUMPER Unmeasured Stool Occurrence: 1 Plan: Added Mirtazapine 7.5 mg nightly for appetite Holding NG feeds - AUTOCAD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 -> passed dysphagia diet with thin liquids on fees 09/02/2024 RENAL no foleyPlan: Continue to follow INFECTIOUS DISEASELeukocytosis Temp: [36.3 ?C (97.3 ?F)-37.1 ?C (98.8 ?F)] 36.4 ?C (97.6 ?F)Heart Rate: [73- 102] 77 Resp: [15-26] 19 BP: (113-168)/(55-79) 150/65 UA negative COVID/FLU/RSV negative CXR- left lung with concern for multifocal aspiration/pneumonia - treated Monitor trend fever curve and WBC Procal WNL Abx: azithromycin x5 days (started on 08/24/24 - 08/28), ceftriaxone ( - 08/27) Blood culture with Strep hemolyticus is likely skin contaminant BCX 08/27 and 08/30: NGTD HEMATOLOGIC TNK @ 1:45 PM 08/19Started on DAPT 08/20 DVT ppx: SCDs; sc heparin Plan: Continue to follow [id number] w/ hyperglycemia (E11.65) on admission BG goal 80-180 44 Units Glargine 14 Units Lispro TID high-dose ISS MUSCULOSKELETAL AND INTEGUMENTARY Code Status: Full Code Disposition: Inpatient rehab facility placement STROKE NEUROLOGY ATTENDING ATTESTATION I have personally seen and evaluated the patient on 09/03/2024, and I waspresent for butts critical points of the encounter. I have discussed the case with and reviewed the provider note detailed above. I have personally viewed the patient's radiographic studies, laboratory tests, and medications. I agree with the above documented history, exam, assessment and plan. Please see note below for any additions and/or exceptions to the note above. 09/03 update - no acute events. Needs 1:1 feeding.LINQ placement tomorrow. ASSESSMENT 78-year-old male with history of prior ischemic stroke with no reportedresidual deficits, HTN, DM, prior lung malignancy, presented with right M1 occlusion received TNK as well as thrombectomy TICI 2B. Etiology is ESUS DSA and CUS are consistently showing < 50% stenosis in ICA TCD repeat shows normalized right MCA waveforms -not consistent with 70% stenosis. Passed for swallow so plavix restarted. DAPT for 21 day course total. Eventually plan is to discharge to inpatient rehab. Will also consult for loop recorder placement to rule out atrial fibrillation given his presence of arrhythmia, age, embolic infarct. - pending hopeful placement on 09/04. DVT Prophylaxislow molecular weight heparin Disposition Planningipr Encounter took 36 minutes of total cumulative time examining the patient at the bedside and in discussion regarding plan of care and addressing questions and concerns, reviewing the EMR and paper chart, reviewing diagnostic studies, laboratory values, and recommendations. I provided a substantive portion of the care of this patient. I personally performed the MDM for this encounter. Jack Rivas MD, Bhargavi Professor, Vascular Neurology [facility] [email or web address] Office contact: [phone] Stroke Clinic: [phone] GER WIRELESS GER WIRELESS GER WIRELESS * Dawn Cano CCC-AUTOCAD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 - 09/02/2024 2:45 PM MANAGER WIRELESS Images from the original note were not included. Speech-Language Pathology [facility] [employer]OCAD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 DYSPHAGIA TREATMENT Patient Name: Chaitanya Tena Today's Date: 09/02/2024 Room: [place] [id number] Session Time: 10:28 - 10:38 IMPRESSIONS: Swallow function improved. Rec dysphagia pureed consistency diet (level 4) with thin liquids (level 0), meds whole with water, 1:1 supervision with PO intake, alternate bites/sips, PO in upright position, PO only when awake and alert. Rec post acute ST services. RECOMMENDATIONS: Dysphagia pureed consistency diet (level 4) with thin liquids (level 0) Medications: Whole with drink Supervision Recommended: 1:1 Oral care: Regular toothbrush Post acute ST services PROGNOSIS: Good PLAN: Treatment/Interventions: Swallow function Frequency: Other (comment) (2-3 times per week) Duration: 4 weeks GENERAL INFORMATION: Oxygenation: Room air Behavior:Cooperative Level of Consciousness: Awake & alert Pain: Pain Assessment: David-Cano FACES 0 Diet Prior to this Treatment: Temporary Means of Alternative Nutrition & Hydration (DHT) Preferred Language: Tanzanian Family member at b/s reports pt recently drank 2 cups of coffee via straw w/o difficulty. TREATMENT SUMMARY: Swallow Activities: Pt sitting up in chair. Pt took water via spoon and straw administered by ST with mild L anterior spillage and no s/s aspiration. Pt took applesauce via spoon administered by ST with good oral control and no s/s aspiration. Ed. to pt and 2 family members at / re: rec starting dysphagia pureed consistency diet (level 4) with thin liquids (level 0). Swallow precautions sign already posted at / by previous ST. OUTCOME MEASURES: International Dysphagia Diet Standardization Initiative - IDDSI Solids - 4 - Puree Liquids - 0 - Thin IDDSI Level - 5 GOALS: Encounter Goals Encounter Goals (Active) LTG - Attend in a structured environment (Progressing) Start: 08/23/24 Expected End: 09/06/24 LTG - Orientation to self, time, place, and situation (Progressing) Start: 08/23/24 Expected End: 09/06/24 STG - Complete a 5 minute simple attention task (Progressing) Start: 08/23/24 Expected End: 09/06/24 STG - Express orientation information (Progressing) Start: 08/23/24 Expected End: 09/06/24 LTG - Demonstrate intelligible speech at word level (Progressing) Start: 08/23/24 Expected End: 09/06/24 STG - Utilize speech intelligibility strategies (Progressing) Start: 08/23/24 Expected End: 09/06/24 LTG - Patient will improve on swallowing outcome measure (Progressing) Start: 08/20/24 Expected End: 09/03/24 STG - Improve airway protection (Progressing) Start: 08/20/24 Expected End: 09/03/24 STG - Improve mastication (Progressing) Start: 08/20/24 Expected End: 09/03/24 Encounter Goals (Resolved) Complete SLCE (Completed) Start: 08/20/24 Expected End: 09/03/24 Resolved: 08/23/24 Patient Education:Ed provided to pt, and 2 family members at b/s re: diet recs. Spoke with IRVIN Reed on unit re: diet recs. Sent message via cookdinner to MD Red and MD Marie re: diet recs. If this is the last documented treatment, then it will signify discharge from acute care prior to discharge from the therapy service and will serve as the discharge summary. Therapy discharge recommendations are made by determining the patient's prior level of function, assessing current function level and establishing rehab potential. The overall discharge plan may be affected by input from Physicians, Care Coordination, medical condition/status, family support and insurance benefits. Dawn Cano CCC-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 GER WIRELESS GER WIRELESS * Zheng Red MD - 09/02/2024 7:28 AM MANAGER WIRELESS Subjective NAEON. Vitals Stable, Not agitated overnight. Weaning seroquel off. Keep NGT on and 1:1 feeding with dysphagia diet. ObjectiveLast Recorded Vitals Blood pressure (!) 149/53, pulse 87, temperature 36.8 ?C (98.2 ?F), resp. rate 16, height 1.78 m (5' 10.08"), weight 88 kg (194 lb), SpO2 95%. Physical Exam: Exam as of 8:15 AM 08/31 General: well nourished; responds to voice and answers questions appropriately; more responsive today HEENT: NCAT, anicteric sclera, mucus membranes moist CV: regular rate, intact peripheral pulses Pulm: breathing comfortably, no wheezing, symmetric chest expansion Abd: soft, non-tender, non-distended Ext: skin clear, no rashes, no edema Neuro Exam:Opens eyes spontaneously; appropriate verbal response to questions Language: appropriate verbal response Speech: mild dysarthria and dysphagia (improving dysphagia); LFD CN: eyes closed. Anisocoria - right pupil 2 mm, left 3 mm, reactive to light bilaterally. Motor: Normal tone and bulk, no abnormal movements. 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 NIHSS 17, pre-admit MRS 0, Found to have R1 occlusion s/p TNK at 1:45 PM and EVT with TICI 2b. He continues to improve in his mentation and is now completed Abx for CAP. However inflammatory markers remain low. R MCA large territory infarct with mild hemorrhagic transformation Likely etiology is ICAD, especially due to multifocal narrowing of intracrnail circualtion. Patient's A1c is 9.40, LDL 86. Emboli detection was negative. TTE showed 55% LVEF. Neurologically improved in AM when working with PT and with ST passed fees. Patient restarted on Plavix and PEG placement by EGS deferred. Dispo pending food intake. Lunch was 25%. OF NOTE, patient to have moving left side with less briskness (still able tomove it but not paying as much attention) with concern for exam change - CT and CTA STAT ordered. Night team to follow read and communicate with Dr. Rivas. NEUROLOGICR M1 Occlusion NIHSS 10-19 (R29.71) on admission Etiology: (ICAD)TNK @ 1:45 PM 12/ EVT TICI 2b with 1 pass Repeat CTH-No hemorrhage MRI brain - R MCA large territory infarct with mild hemorrhagic transformation - A1c 9.40, LDL 86 Emboli detection: (-) Transcranial doppler: stenosis of RT MFV US carotid artery: Occlusion of the distal M1 segment of the right middle cerebral artery; Multifocal narrowing of the intracranial circulation (Right middle cerebral artery mean flow velocities and waveforms suggest >70% stenosis RT MFV 178 and LT MFV 75.) StrokeContinue Atorvastatin 80 mg Continue ASA 324 mg Plavix 75mg Will likely need DAPT for 90 days per SAMPRIS Consider endovascular following carotid US read PT/OT/ST AgitationModafinil Discontinue seroquel Melatonin 10 mg nightly Delirium precautions CARDIOVASCULAREssential hypertension (I10) on admission PAD Temp: [36.3 ?C (97.3 ?F)-37.1 ?C (98.8 ?F)] 36.4 ?C (97.6 ?F) Heart Rate: [73-102] 77 Resp: [15-26] 19 BP: (113-168)/(55-79) 150/65 VS Parameters: SBP <160PRN none Troponin [id number] EKG revealed Sinus Rhythm Qtc: 390TTE negative 55% LVEF Atrial size normal, no pericardial effusion sub-optimal valvular assessment Right LE doppler 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 Complete occlusion of the left posterior tibialis artery Vascular Surgery consult Dr. Barajas as an outpatient for further evaluation. Plan:Amlodipine 10 mg daily Increased Losartan to 75mg daily PULMONARYAcute resp failure unspecified (J96.00) on admission Hx of possible lung malignancy Plan:Continue to monitor - Completed Ceftriaxone 1g x 5 days - Completed Azithromycin 08/29/2024 GASTROINTESTINAL Dysphagia unspecified (R13.1) on admission Nutrition: tube feedsGI route: NGT/Cortrak GI ppx: Pepcid q12h/BID bowel regimen: docusate, senna, miralax q12h last BM YARN DUMPER Unmeasured Stool Occurrence: 1 Lab ResultsComponent Value Date ALT 10 08/19/2024 AST 16 08/19/2024 Alkaline Phosphatase 73 08/19/2024 Bilirubin Total 0.20 08/19/2024 Plan:Continue NG feeds > will advance feed when appropriate - 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 -> passed dysphagia diet with thin liquids on fees 08/31/2024 -- previously failed multiple fees - Spoke with daughter at [phone], OK with PEG RENAL Intake/Output Summary (Last 24 hours) at 08/27/2024 0755Last data filed at 08/28/2024 0000 Gross per 24 hourIntake 160 ml Output -- Net 160 ml Results from last 7 days Lab Units 08/27/24 0120 08/26/24 0414 08/25/24 0422 SODIUM mEq/L 139 141 137 POTASSIUM mEq/L 4.2 4.0 4.7* CHLORIDE mEq/L 101 102 99 CO2 mEq/L 29.1 30.1 28.2 BUN mg/dL 27* 23 19 CREATININE mg/dL 1.10 1.00 1.01 no foleyPlan: Continue to follow INFECTIOUS DISEASELeukocytosis Temp: [36.3 ?C (97.3 ?F)-37.1 ?C (98.8 ?F)] 36.4 ?C (97.6 ?F)Heart Rate: [73- 102] 77 Resp: [15-26] 19 BP: (113-168)/(55-79) 150/65 Results from last 7 daysLab Units 08/27/24 0120 08/26/24 0414 08/25/24 0422 WBC 10*3/uL 13.88* 12.05* 12.54* UA negativeCOVID/FLU/RSV negative CXR- left lung with concern for multifocal aspiration/pneumonia - treated Monitor trend fever curve and WBC Procal WNL Abx: azithromycin x5 days (started on 08/24/24 - 08/28), ceftriaxone ( - 08/27) Blood culture with Strep hemolyticus is likely skin contaminant BCX 08/27 and 08/30: NGTD HEMATOLOGIC Results from last 7 daysLab Units 08/27/24 0120 08/26/24 0414 08/25/24 0422 HEMOGLOBIN g/dL 12.5 12.7 12.4 PLATELETS 10*3/uL 508* 475* 465* TNK @ 1:45 PM 08/19Started on DAPT 08/20 DVT ppx: SCDs; sc heparin Plan: Continue to follow [id number] w/ hyperglycemia (E11.65) on admission Results from last 7 days Lab Units 08/27/24 0518 08/27/24 0409 08/27/24 0120 GLUCOSE mg/dL -- -- 199* POC GLUCOSE mg/dL 196* 126* -- BG goal [id number] Units Glargine 10 Units Lispro TID high-dose ISS MUSCULOSKELETAL AND INTEGUMENTARY Code Status: Full Code Disposition: Inpatient rehab facility placement ASHLEIGH ZavaletaGY-2 Neurology [facility] Cosigned by Jack Rivas MD at 09/03/2024 11:24 PM CST GER WIRELESS GER WIRELESS Associated attestation - Jack Rivas MD - 09/03/2024 11:24 PM CST STROKE NEUROLOGY ATTENDING ATTESTATION I have personally seen and evaluated the patient on 09/02/2024, and I waspresent for butts critical points of the encounter. I have discussed the case with and reviewed the provider note detailed above. I have personally viewed the patient's radiographic studies, laboratory tests, and medications. I agree with the above documented history, exam, assessment and plan. Please see note below for any additions and/or exceptions to the note above. 09/02 update - passed again for diet. Wean restraints off. Turn off tube feeds, encourage PO feeding. Will await eating 50% diet and plan for dc to IPR. Otherwise stable, stopped seroquel and melatonin at nighttime to reduce risk of daytime sleepiness. Exam stable, aaox1, follows some simple commands, encephalopathic, lifting all extremities, left hemiparesis (AG effort with slow drift) ASSESSMENT 78-year-old male with history of prior ischemic stroke with no reportedresidual deficits, HTN, DM, prior lung malignancy, presented with right M1 occlusion received TNK as well as thrombectomy TICI 2B. Etiology is ESUS DSA and CUS are consistently showing < 50% stenosis in ICA TCD repeat shows normalized right MCA waveforms -not consistent with 70% stenosis. Passed for swallow so plavix restarted. Cortak replaced. Eventually plan is to discharge to inpatient rehab. Will also consult for loop recorder placement to rule out atrial fibrillation given his presence of arrhythmia, age, embolic infarct. - pending hopeful placement on 09/04. DVT Prophylaxislow molecular weight heparin Disposition Planningipr Encounter took 37 minutes of total cumulative time examining the patient at the bedside and in discussion regarding plan of care and addressing questions and concerns, reviewing the EMR and paper chart, reviewing diagnostic studies, laboratory values, and recommendations. I provided a substantive portion of the care of this patient. I personally performed the MDM for this encounter. Jack Rivas MD, RPNIAssadityat Professor, Vascular Neurology [facility] [employer] [email or web address] Office contact: [phone] Stroke Clinic: [phone] * Elana Trejo, OT - 09/01/2024 8:10 AM MANAGER WIRELESS Treatment Session Note Patient Name: Chaitanya Tena Today's Date: 09/01/2024 Preferred Language: Tanzanian Assessment & Plan Assessment: Pt is progressing with sitting balance at EOB to Min A. Pt reports that he is tired and does not want to stand though highly encouraged. Pt completed 2 sit to stands with Max A and returned to the bed. Pt is limited by activity tolerance, ADL completion, sitting balance, and safety awareness. Pt will continue to benefit from acute OT services to address deficits. Precautions: UE Weight Bearing Status: FWB LE Weight Bearing Status: FWB Plan: Treatment Plan/Goals Established with Patient/Caregiver: Yes OT Plan: Skilled OT OT Frequency: 3-5 times per week until discharge OT Discharge Recommendations: Inpatient rehab facility placement OT Planned Treatments: Balance training, Activities of Daily Living, Patient education, Therapeutic exercises, Therapeutic activities, Energy conservation training, Mobility training, Neuromuscular reeducation, Safety education OT Duration: Discharge Subjective Pt lying in bed and agreeable to therapy session. Pain: Pain Assessment: DVPRS (09/01/2024 8:10 AM) Pain Score: 0 (09/01/2024 8:10 AM) Objective Treatment Bed Mobility: Bed Mobility 1 Level of Assistance 1: Partial/Mod assistance Bed Mobility To/From: Supine to sit on EOB Assistive Devices And Adaptive Equipments: No device Bed Mobility 2 Level of Assistance 2: Partial/Mod assistance Bed Mobility To/From: Sitting EOB to supine Assistive Devices And Adaptive Equipments: No device Transfers: Transfer 1 Level of Assistance 1: Substantial/Max assistance Trials/Comments 1: Resisting standing due to being tired, x2 stands Transfer To/From: [id number]-[id number] Assistive Devices And Adaptive Equipments: No device Therapeutic Activity Therapeutic Activity Time Entry: 26 Therapeutic Activity 1: sitting EOb with Min A Therapeutic Activity 2: Sit to stands x2 with Max Ax2 Therapeutic Activity 3: bed mobility AM-PAC Daily Activity: Putting on and taking off regular lower body clothing: A Lot Bathing (including washing, rinsing, drying): A Lot Toileting, which includes using toilet, bedpan or urinal: A Lot Putting on and taking off regular upper body clothing: A Lot Taking care of personal grooming such as brushing teeth: A Lot Eating Meals: A Lot AM-PAC Daily Activity Raw Score: 12 Patient Education: Education Documentation No documentation found. Education Comments No comments found. Goals: Encounter Goals Encounter Goals (Active) Pt will demonstrate improved postural control requiring no more than min-mod A for static sitting balance in preparation for toilet transfers. Start: 08/20/24 Expected End: 09/03/24 Pt will complete txf supine>sit and bed>chair/BSC with Mod A to participate in self care tasks. Start: 08/20/24 Expected End: 09/10/24 Pt. will demonstrate improved oculomotor control seen by laterally tracking to L side 3/5 trials sustaining attention > 10 seconds Start: 08/20/24 Expected End: 09/03/24 Patient will complete UB/LD dressing with Min A Start: 08/20/24 Expected End: 09/10/24 Encounter Goals (Resolved) Complete SLCE (Completed) Start: 08/20/24 Expected End: 09/03/24 Resolved: 08/23/24 Treatment Note: If this is the last documented treatment, then it will signify discharge from acute care prior to discharge from the therapy service and will serve as the discharge summary. Elana Trejo OT GER WIRELESS * Roger Jones MD - 09/01/2024 5:30 AM MANAGER WIRELESS Subjective - No events overnight - CT Head stable - CT Angio stable - patient having collection of food in his mouth, speech recommending NPO - added caffeine - decreased Melatonin and decreased Seroquel ObjectiveLast Recorded Vitals Blood pressure 132/75, pulse 96, temperature 37.4 ?C (99.3 ?F), resp. rate 18, height 1.78 m (5' 10.08"), weight 88 kg (194 lb), SpO2 95%. Physical Exam: Exam as of 8:15 AM 08/31 General: well nourished; responds to voice and answers questions appropriately; more responsive today HEENT: NCAT, anicteric sclera, mucus membranes moist CV: regular rate, intact peripheral pulses Pulm: breathing comfortably, no wheezing, symmetric chest expansion Abd: soft, non-tender, non-distended Ext: skin clear, no rashes, no edema Neuro Exam:Opens eyes spontaneously; appropriate verbal response to questions Language: appropriate verbal response Speech: mild dysarthria and dysphagia (improving dysphagia); LFD CN: eyes closed. Anisocoria - right pupil 2 mm, left 3 mm, reactive to light bilaterally. Motor: Normal tone and bulk, no abnormal movements. 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 NIHSS 17, pre-admit MRS 0, Found to have R1 occlusion s/p TNK at 1:45 PM and EVT with TICI 2b. He continues to improve in his mentation and is now completed Abx for CAP. However inflammatory markers remain low. R MCA large territory infarct with mild hemorrhagic transformation Likely etiology is ICAD, especially due to multifocal narrowing of intracrnail circualtion. Patient's A1c is 9.40, LDL 86. Emboli detection was negative. TTE showed 55% LVEF. - Patient's speech declining. patient having collection of food in his mouth, speech recommending NPO. if patient is more active, call speech for re-eval 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; Multifocal narrowing of the intracranial circulation (Right middle cerebral artery mean flow velocities and waveforms suggest >70% stenosis RT MFV 178 and LT MFV 75.) Plan:Continue Atorvastatin 80 mg Continue ASA 324 mg Restarted Plavix 75mg Will likely need DAPT for 90 days per SAMPRIS Consider endovascular following carotid US read PT/OT/ST Failed MBS today 08/30/24, passed fees 08/31, but having food collection today 09/01 so NPO Off restraints Continue 100mg Modafinil Added Caffeine Decreased Seroquel 12.5 mg nightly Decreased Melatonin 3 mg nightly Discontinue restraints Delirium precautions CARDIOVASCULAREssential hypertension (I10) on admission PAD Temp: [36.3 ?C (97.3 ?F)-37.1 ?C (98.8 ?F)] 36.4 ?C (97.6 ?F) Heart Rate: [73-102] 77 Resp: [15-26] 19 BP: (113-168)/(55-79) 150/65 VS Parameters: SBP <160PRN none Troponin [id number] EKG revealed Sinus Rhythm Qtc: 390TTE negative 55% LVEF Atrial size normal, no pericardial effusion sub-optimal valvular assessment Right LE doppler 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 Complete occlusion of the left posterior tibialis artery Vascular Surgery consult Dr. Barajas as an outpatient for further evaluation. Plan:Amlodipine 10 mg daily Increased Losartan to 75mg daily PULMONARYAcute resp failure unspecified (J96.00) on admission Hx of possible lung malignancy Plan:Continue to monitor - Completed Ceftriaxone 1g x 5 days - Completed Azithromycin 08/29/2024 GASTROINTESTINAL Dysphagia unspecified (R13.1) on admission Nutrition: tube feedsGI route: NGT/Cortrak GI ppx: Pepcid q12h/BID bowel regimen: docusate, senna, miralax q12h last BM YARN DUMPER Unmeasured Stool Occurrence: 1 Lab ResultsComponent Value Date ALT 10 08/19/2024 AST 16 08/19/2024 Alkaline Phosphatase 73 08/19/2024 Bilirubin Total 0.20 08/19/2024 Plan:Continue NG feeds > will advance feed when appropriate - 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 -> passed dysphagia diet with thin liquids on fees 08/31/2024 - > having food collection and poor intake, NPO 09/01/2024 - Spoke with daughter at [phone], OK with PEG RENAL Intake/Output Summary (Last 24 hours) at 08/27/2024 0755Last data filed at 08/28/2024 0000 Gross per 24 hourIntake 160 ml Output -- Net 160 ml Results from last 7 days Lab Units 08/27/24 0120 08/26/2441308/25/24 042 SODIUM mEq/L 139 141 137 POTASSIUM mEq/L 4.2 4.0 4.7* CHLORIDE mEq/L 101 102 99 CO2 mEq/L 29.1 30.1 28.2 BUN mg/dL 27* 23 19 CREATININE mg/dL 1.10 1.00 1.01 no foleyPlan: Continue to follow INFECTIOUS DISEASELeukocytosis Temp: [36.3 ?C (97.3 ?F)-37.1 ?C (98.8 ?F)] 36.4 ?C (97.6 ?F)Heart Rate: [73- 102] 77 Resp: [15-26] 19 BP: (113-168)/(55-79) 150/65 Results from last 7 daysLab Units 08/27/24 0120 08/26/24 04108/25/24 0422 WBC 10*3/uL 13.88* 12.05* 12.54* UA negativeCOVID/FLU/RSV negative CXR- left lung with concern for multifocal aspiration/pneumonia - treated Monitor trend fever curve and WBC Procal WNL Abx: azithromycin x5 days (started on 08/24/24 - 08/28), ceftriaxone ( - 08/27) Blood culture with Strep hemolyticus is likely skin contaminant Plan: CTM - pending Bcx ordered overnight - negative Cxr, UA, Liverlabs HEMATOLOGIC Results from last 7 daysLab Units 08/27/24 0120 08/26/24 0414 08/25/24 0422 HEMOGLOBIN g/dL 12.5 12.7 12.4 PLATELETS 10*3/uL 508* 475* 465* TNK @ 1:45 PM 08/19Started on DAPT 08/20 DVT ppx: SCDs; sc heparin Plan: Continue to follow [id number] w/ hyperglycemia (E11.65) on admission Results from last 7 days Lab Units 08/27/24 0518 08/27/24 0409 08/27/24 0120 GLUCOSE mg/dL -- -- 199* POC GLUCOSE mg/dL 196* 126* -- BG goal [id number] 15 U q6h high-dose ISS Plan:BG goal < 200 Continue insulin reg MUSCULOSKELETAL AND INTEGUMENTARYPulse and groin checks per protocol Code Status: Full Code Disposition: Inpatient rehab facility placement SHERICE Zavaleta-2 Neurology [facility] Cosigned by Jack Rivas MD at 09/02/2024 3:09 PM CST GER WIRELESS GER WIRELESS Associated attestation - Jack Rivas MD - 09/02/2024 3:09 PM CST STROKE NEUROLOGY ATTENDING ATTESTATION I have personally seen and evaluated the patient on 09/01/2024, and I waspresent for butts critical points of the encounter. I have discussed the case with and reviewed the provider note detailed above. I have personally viewed the patient's radiographic studies, laboratory tests, and medications. I agree with the above documented history, exam, assessment and plan. Please see note below for any additions and/or exceptions to the note above. 09/01 update - improved exam from day prior. Some food pocketing, for which 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 made patient NPO. Still has cortrak for feeds. Swallow and appetite are main barriers to discharge. Weaning restraints/mittens and given pocketing issues we have decreased nighttime seroquel and melatonin to avoid daytime sleepiness. ASSESSMENT 78-year-old male with history of prior ischemic stroke with no reportedresidual deficits, HTN, DM, prior lung malignancy, presented with right M1 occlusion received TNK as well as thrombectomy TICI 2B. Etiology is ESUS DSA and CUS are consistently showing < 50% stenosis in ICA TCD repeat shows normalized right MCA waveforms -not consistent with 70% stenosis. Passed for swallow so plavix restarted. Cortak replaced. Eventually plan is to discharge to inpatient rehab. Will also consult for loop recorder placement to rule out atrial fibrillation given his presence of arrhythmia, age, embolic infarct. - pending. DVT Prophylaxislow molecular weight heparin Disposition Planningipr Encounter took 38 minutes of total cumulative time examining the patient at the bedside and in discussion regarding plan of care and addressing questions and concerns, reviewing the EMR and paper chart, reviewing diagnostic studies, laboratory values, and recommendations. I provided a substantive portion of the care of this patient. I personally performed the MDM for this encounter. Jack Rivas MD, RPNIAssistant Professor, Vascular Neurology [facility] [employer] [email or web address] Office contact: [phone] Stroke Clinic: [phone] * Roger Jones MD - 08/31/2024 5:05 PM MANAGER WIRELESS Subjective - patient had a low grade fever overnigh to 100.6 - sepsis labs were sent including UA, Chest Xray, Procal, LA -- UA was unremarkable, Chest Xray was unremarkable, Procal was unremarkable - LA was high and patient was given 500cc bolus, Blood Cultures were drawn - patient pulled NG tube - patient was pending for EGS PEG tube placement tomorrow due to being restraint free for nearly 24 hrs but due to mentation better, patient was tried on fees again and passed with dysphagia diet/thin liquids. - restarted plavix and EGS deferred for PEG placement OF NOTE, patient to have moving left side with less briskness (still able to move it but not paying as much attention) with concern for exam change - CT and CTA STAT ordered. Night team to follow read and communicate with Dr. Rivas. ObjectiveLast Recorded Vitals Blood pressure 132/62, pulse 94, temperature 36.7 ?C (98.1 ?F), resp. rate 15, height 1.78 m (5' 10.08"), weight 88 kg (194 lb), SpO2 93%. Physical Exam: Exam as of 8:15 AM 08/31 General: well nourished; responds to voice and answers questions appropriately; more responsive today HEENT: NCAT, anicteric sclera, mucus membranes moist CV: regular rate, intact peripheral pulses Pulm: breathing comfortably, no wheezing, symmetric chest expansion Abd: soft, non-tender, non-distended Ext: skin clear, no rashes, no edema Neuro Exam:Opens eyes spontaneously; appropriate verbal response to questions Language: appropriate verbal response Speech: mild dysarthria and dysphagia (improving dysphagia); LFD CN: eyes closed. Anisocoria - right pupil 2 mm, left 3 mm, reactive to light bilaterally. Motor: Normal tone and bulk, no abnormal movements. 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 NIHSS 17, pre-admit MRS 0, Found to have R1 occlusion s/p TNK at 1:45 PM and EVT with TICI 2b. He continues to improve in his mentation and is now completed Abx for CAP. However inflammatory markers remain low. R MCA large territory infarct with mild hemorrhagic transformation Likely etiology is ICAD, especially due to multifocal narrowing of intracrnail circualtion. Patient's A1c is 9.40, LDL 86. Emboli detection was negative. TTE showed 55% LVEF. Neurologically improved in AM when working with PT and with ST passed fees. Patient restarted on Plavix and PEG placement by EGS deferred. Dispo pending food intake. Lunch was 25%. OF NOTE, patient to have moving left side with less briskness (still able tomove it but not paying as much attention) with concern for exam change - CT and CTA STAT ordered. Night team to follow read and communicate with Dr. Rivas. NEUROLOGICR M1 Occlusion NIHSS 10-19 (R29.71) on admission Etiology: Pending (likely ICAD)TNK @ 1:45 PM 12/7 EVT TICI 2b with 1 pass Repeat CTH-No hemorrhage MRI brain - R MCA large territory infarct with mild hemorrhagic transformation - A1c 9.40, LDL 86 Emboli detection: (-) Transcranial doppler: stenosis of RT MFV US carotid artery: Occlusion of the distal M1 segment of the right middle cerebral artery; Multifocal narrowing of the intracranial circulation (Right middle cerebral artery mean flow velocities and waveforms suggest >70% stenosis RT MFV 178 and LT MFV 75.) Plan:Continue Atorvastatin 80 mg Continue ASA 324 mg Restarted Plavix 75mg Will likely need DAPT for 90 days per SAMPRIS Consider endovascular following carotid US read PT/OT/ST Failed MBS today 08/30/24 - Consulted EGS for PEG Tube placement -->will not do PEG until 24 hr after restraints off Starting Modafinil tomorrow AM Seroquel 12.5mg PO qAm, Seroquel 25 mg nightly Melatonin 10 mg nightly Discontinue restraints Delirium precautions CARDIOVASCULAREssential hypertension (I10) on admission PAD Temp: [36.3 ?C (97.3 ?F)-37.1 ?C (98.8 ?F)] 36.4 ?C (97.6 ?F) Heart Rate: [73-102] 77 Resp: [15-26] 19 BP: (113-168)/(55-79) 150/65 VS Parameters: SBP <160PRN none Troponin [id number] EKG revealed Sinus Rhythm Qtc: 390TTE negative 55% LVEF Atrial size normal, no pericardial effusion sub-optimal valvular assessment Right LE doppler 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 Complete occlusion of the left posterior tibialis artery Vascular Surgery consult Dr. Barajas as an outpatient for further evaluation. Plan:Amlodipine 10 mg daily Increased Losartan to 75mg daily PULMONARYAcute resp failure unspecified (J96.00) on admission Hx of possible lung malignancy Plan:Continue to monitor - Completed Ceftriaxone 1g x 5 days - Completed Azithromycin 08/29/2024 GASTROINTESTINAL Dysphagia unspecified (R13.1) on admission Nutrition: tube feedsGI route: NGT/Cortrak GI ppx: Pepcid q12h/BID bowel regimen: docusate, senna, miralax q12h last BM YARN DUMPER Unmeasured Stool Occurrence: 1 Lab ResultsComponent Value Date ALT 10 08/19/2024 AST 16 08/19/2024 Alkaline Phosphatase 73 08/19/2024 Bilirubin Total 0.20 08/19/2024 Plan:Continue NG feeds > will advance feed when appropriate - [employer]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 -> passed dysphagia diet with thin liquids on fees 08/31/2024 -- previously failed multiple fees - Spoke with daughter at [phone], OK with PEG RENAL Intake/Output Summary (Last 24 hours) at 08/27/2024 0755Last data filed at 08/28/2024 0000 Gross per 24 hourIntake 160 ml Output -- Net 160 ml Results from last 7 days Lab Units 08/27/24 01208/26/2441308/25/24421 SODIUM mEq/L 139 141 137 POTASSIUM mEq/L 4.2 4.0 4.7* CHLORIDE mEq/L 101 102 99 CO2 mEq/L 29.1 30.1 28.2 BUN mg/dL 27* 23 19 CREATININE mg/dL 1.10 1.00 1.01 no foleyPlan: Continue to follow INFECTIOUS DISEASELeukocytosis Temp: [36.3 ?C (97.3 ?F)-37.1 ?C (98.8 ?F)] 36.4 ?C (97.6 ?F)Heart Rate: [73- 102] 77 Resp: [15-26] 19 BP: (113-168)/(55-79) 150/65 Results from last 7 daysLab Units 08/27/24 01208/26/2441308/25/24421 WBC 10*3/uL 13.88* 12.05* 12.54* UA negativeCOVID/FLU/RSV negative CXR- left lung with concern for multifocal aspiration/pneumonia - treated Monitor trend fever curve and WBC Procal WNL Abx: azithromycin x5 days (started on 08/24/24 - 08/28), ceftriaxone ( - 08/27) Blood culture with Strep hemolyticus is likely skin contaminant Plan: CTM - pending Bcx ordered overnight - negative Cxr, UA, [facility] HEMATOLOGIC Results from last 7 daysLab Units 08/27/24 01208/26/2441308/25/24 042 HEMOGLOBIN g/dL 12.5 12.7 12.4 PLATELETS 10*3/uL 508* 475* 465* TNK @ 1:45 PM 08/19Started on DAPT 12/8 DVT ppx: SCDs; sc heparin Plan: Continue to follow [id number] w/ hyperglycemia (E11.65) on admission Results from last 7 days Lab Units 08/27/24 0518 08/27/24 0409 08/27/24 0120 GLUCOSE mg/dL -- -- 199* POC GLUCOSE mg/dL 196* 126* -- BG goal [phone] 15 U q6h high-dose ISS Plan:BG goal < 200 Continue insulin reg MUSCULOSKELETAL AND INTEGUMENTARYPulse and groin checks per protocol Code Status: Full Code Disposition: Inpatient rehab facility placement ASHLEIGH ZavaletaGY-2 [facility] Cosigned by Jack Rivas MD at 09/02/2024 3:02 PM CST GER WIRELESS GER WIRELESS Associated attestation - Jack Rivas MD - 09/02/2024 3:02 PM CST STROKE NEUROLOGY ATTENDING ATTESTATION I have personally seen and evaluated the patient on 08/31/2024, and I waspresent for butts critical points of the encounter. I have discussed the case with and reviewed the provider note detailed above. I have personally viewed the patient's radiographic studies, laboratory tests, and medications. I agree with the above documented history, exam, assessment and plan. Please see note below for any additions and/or exceptions to the note above. 08/31 exam - on my afternoon exam, patient seemed to me more lethargic, not lifting left hemibody as briskly to command. I ordered stat ctb/cta - on eval no significant acute changes. ASSESSMENT 78-year-old male with history of prior ischemic stroke with no reportedresidual deficits, HTN, DM, prior lung malignancy, presented with right M1 occlusion received TNK as well as thrombectomy TICI 2B. Etiology is ESUS DSA and CUS are consistently showing < 50% stenosis in ICA TCD repeat shows normalized right MCA waveforms -not consistent with 70% stenosis. Passed for swallow so plavix restarted. Cortak replaced. Eventually plan is to discharge to inpatient rehab. Will also consult for loop recorder placement to rule out atrial fibrillation given his presence of arrhythmia, age, embolic infarct. - pending. DVT Prophylaxislow molecular weight heparin Disposition Planningipr Encounter took 42 minutes of total cumulative time examining the patient at the bedside and in discussion regarding plan of care and addressing questions and concerns, reviewing the EMR and paper chart, reviewing diagnostic studies, laboratory values, and recommendations. I provided a substantive portion of the care of this patient. I personally performed the MDM for this encounter. Jack Rivas MD, RPLIZABETHssadityat Professor, Vascular Neurology [facility] [email or web address] Office contact: [phone] Stroke Clinic: [phone] * Jenna Marley, YARN DUMPER - 08/31/2024 2:51 PM MANAGER WIRELESS Treatment Session Note Patient Name: Chaitanya Tena Today's Date: 08/31/2024 Preferred Language: Tanzanian Assessment & Plan Assessment: Pt tolerating short trails of sitting up in high back chair ~5 minutes at a time with pt in NAD. Patient continues to standing, take side steps @ EOB with improving activity tolerance. Plan: PT Discharge Recommendations: Inpatient rehab facility placement, jail facility placement Subjective RN cleared pt for skilled PT intervention. Pt received supine in bed, no one visiting at b/s, pt pleasant and agreed to participate in treatment. Pt left supine in bed, pt in NAD, all needs in reach, RN notified of status/end of visit. Objective PT Last Visit PT Received On: 08/31/24 Treatment Therapeutic activity: Therapeutic Activity Therapeutic Activity Time Entry: Therapeutic Activity 1: Static sitting balance Therapeutic Activity 2: Static standing balance Therapeutic Activity 3: Side steps @ EOB Therapeutic Activity 4: Bed to chair transfers Therapeutic Activity 5: STS Bed Mobility: Bed Mobility 1: Level of Assistance 1: Substantial/Max assistance, Partial/Mod assistance Bed Mobility To/From: Roll left/right, Sitting EOB to supine, Supine to sit on EOB Assistive Devices And Adaptive Equipments: No device Transfers: Transfers 1: Technique 1: Stand step, Stand pivot Level of Assistance 1: Partial/Mod assistance, Substantial/Max assistance Trials/Comments 1: Mod-max A x2 via NUCLEAR EQUIPMENT SALES ENGINEER Transfer To/From: Bed, Chair, [id number]-Ocrkc/Pbztp-tm-Dbb Assistive Devices And Adaptive Equipments: No device AM-PAC Basic Mobility: AM-PAC Basic Mobility Inpatient Turning in bed without bedrails: A Lot Lying on back to sitting on edge of flat bed: A Lot Bed to chair: A Lot Standing up from chair: A Lot Walk in room: A Lot Climbing 3-5 stairs: A Little Mobility Inpatient Raw Score: 13 JH-HLM Goal: 4 Mobility: Highest Level of Mobility Performed (JH-HLM) -HLM Goal: 4 Goals: Encounter Goals Encounter Goals (Active) Pt will demonstrate improved postural control requiring no more than min-mod A for static sitting balance in preparation for toilet transfers. Start: 08/20/24 Expected End: 09/03/24 Patient will complete rolling L/R with supervision in order to decrease risk for pressure injury development in supine Start: 08/20/24 Expected End: 09/03/24 Pt will transition from supine to/from sitting edge of bed with minimum assistance in order to sit EOB for ADL participation Start: 08/20/24 Expected End: 09/03/24 Patient will transfer bed to/from chair with minimum assistance and least restrictive device to increase upright tolerance and optimize cardiorespiratory function Start: 08/20/24 Expected End: 09/03/24 Patient will ambulate at least 50 feet over level surfaces with minimum assistance and least restrictive device in prep for household ambulation and community re-integrationn Start: 08/20/24 Expected End: 09/03/24 Encounter Goals (Resolved) Complete SLCE (Completed) Start: 08/20/24 Expected End: 09/03/24 Resolved: 08/23/24 Treatment Note: If this is the last documented treatment, then it will signify discharge from acute care prior to discharge from the therapy service and will serve as the discharge summary. Jenna Marley PTA GER WIRELESS * Jorge Lindaom - 08/31/2024 12:00 PM MANAGER WIRELESS Functional Maintenance Patient Name: Chaitanya Tena Today's Date: 08/31/2024 Mobility: RN requested Lift Team assistance. Pt was found in bed. Pt wasassisted to transfer from neurochair to bed via lateral drawsheet transfer. Pt was left safely under care of RN. Jorge Graylectronically signed by Jorge Beverly at 08/31/2024 12:20 PM MANAGER WIRELESS * Jorge Beverly - 08/31/2024 9:50 AM MANAGER WIRELESS Functional Maintenance Patient Name: Chaitanya Tena Today's Date: 08/31/2024 Mobility: RN requested Lift Team assistance. Pt was found in bed. Pt was assisted to transfer from bed to neurochair via lateral drawsheet transfer. Pt was left safely under care of RN. Jorge Tripptronically signed by Jorge Beverly at 08/31/2024 12:18 PM MANAGER WIRELESS * Lupis Falcon CCC-[employer]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 - 08/31/2024 9:35 AM MANAGER WIRELESS Images from the original note were not included. [facility] [employer]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 DYSPHAGIA AND SPEECH/LANGUAGE/COGNITIVE TREATMENT Patient Name: Chaitanya Tena Today's Date: 08/31/2024 Room: [place] [id number] IMPRESSIONS: Dysphagia- s/p FEES 08/24 and attempted 08/26 (poorly tolerated), MBS 08/29- RAVI improved; recommend to trial diet with close monitoring and aspiration precautions Dysarthria, cognitive-linguistic deficits- Recommend post-acute [employer]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 services. RECOMMENDATIONS: Diet Recommendations: Dysphagia pureed, thin liquids Medications: Crushed in puree with MD approval Swallow Precautions: Alternate liquids/solids, Feed only when alert, Small bites/sips, Upright to 90 degrees (Slow rate) Supervision Recommended: 1:1 Oral care: Regular toothbrush , Every 6 hours [employer]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 will follow for ongoing evaluation and treatment of dysarthria, cognitive-linguistic deficits, and dysphagia PROGNOSIS: Fair PLAN: Treatment/Interventions: Swallow function, Cognitive communication functioning, Communication functioning Frequency: 3-4 times per week GENERAL INFORMATION: Oxygenation: Room air Behavior:Cooperative Level of Consciousness: Drowsy Pain: Pain Assessment: 0-10 Pain Score: 0 Diet Prior to this Treatment: NPO Preferred Language: Tanzanian TREATMENT SUMMARY: First Visit: Cognitive Skills Comments: Patient continues to be more awake with spontaneous eye opening. Asking for coffee. Patient was oriented to self and general place. He was not oriented to stiuation or time. Practiced recall of orientation concepts with moderate cueing. Patient unable to utilize external aide in room due to left sided visual inattention. Second Visit: Swallow Comments: Team gave ok for PO trials. (Was unsure if pt NPO for procedure; PEG placement has been delayed by restraints weaning and now fevers per EMR and rounds) Patient now up in neurochair. More drowsy but awakened with stimulation. With prompts to awaken, he was able to accept PO trials of thin liquids via straw and puree. Continues with prolonged oral transit, a suspected delay in pharyngeal swallow initiation. Alternating liquids/solids were helpful to facilitate efficiency. No symptoms of pharyngeal dysphagia demonstrated. OUTCOME MEASURES: International Dysphagia Diet Standardization Initiative - IDDSI Solids - 4 - Puree Liquids - 0 - Thin IDDSI Level - 5 GOALS: Encounter Goals Encounter Goals (Active) LTG - Attend in a structured environment (Progressing) Start: 08/23/24 Expected End: 09/06/24 LTG - Orientation to self, time, place, and situation (Progressing) Start: 08/23/24 Expected End: 09/06/24 STG - Complete a 5 minute simple attention task (Progressing) Start: 08/23/24 Expected End: 09/06/24 STG - Express orientation information (Progressing) Start: 08/23/24 Expected End: 09/06/24 LTG - Demonstrate intelligible speech at word level (Progressing) Start: 08/23/24 Expected End: 09/06/24 STG - Utilize speech intelligibility strategies (Progressing) Start: 08/23/24 Expected End: 09/06/24 LTG - Patient will improve on swallowing outcome measure (Progressing) Start: 08/20/24 Expected End: 09/03/24 STG - Improve airway protection (Progressing) Start: 08/20/24 Expected End: 09/03/24 STG - Improve mastication Start: 08/20/24 Expected End: 09/03/24 Encounter Goals (Resolved) Complete SLCE (Completed) Start: 08/20/24 Expected End: 09/03/24 Resolved: 08/23/24 Patient Education:Education Documentation No documentation found. Education Comments No comments found. If this is the last documented treatment, then it will signify discharge from acute care prior to discharge from the therapy service and will serve as the discharge summary. Therapy discharge recommendations are made by determining the patient's prior level of function, assessing current function level and establishing rehab potential. The overall discharge plan may be affected by input from Physicians, Care Coordination, medical condition/status, family support and insurance benefits. Lupis Falcon CCC-SLP GER WIRELESS GER WIRELESS * Elana Trejo OT - 08/31/2024 8:15 AM MANAGER WIRELESS Treatment Session Note Patient Name: Chaitanya Tena Today's Date: 08/31/2024 Preferred Language: [place]anian Assessment & Plan Assessment: Pt is progressing with sitting balance to Mod A this session, sit to stands Mod A and side steps with Mod A. Pt requires multiple verbal cues for sequencing though was following commands and very alert for session. Pt is limited by activity tolerance, balance, ADL completion, global strength, and safety awareness. Pt will continue to benefit from acute OT services to address deficits. Precautions: UE Weight Bearing Status: FWB LE Weight Bearing Status: FWB Plan: Treatment Plan/Goals Established with Patient/Caregiver: Yes OT Plan: Skilled OT OT Frequency: 3-5 times per week until discharge OT Discharge Recommendations: Inpatient rehab facility placement OT Planned Treatments: Balance training, Activities of Daily Living, Patient education, Therapeutic exercises, Therapeutic activities, Energy conservation training, Mobility training, Neuromuscular reeducation, Safety education OT Duration: Discharge Subjective Pt is lying in bed and agreeable to therapy session this date. Pain: Pain Assessment: DVPRS (08/31/2024 12:00 PM) Pain Score: 0 (08/31/2024 10:15 AM) Objective Self Care (ADL): Self Care/Home Management (ADLs) Time Entry: 10 Grooming Assistance: Substantial/Max assistance UE Dressing Assistance: Partial/Mod assistance LE Dressing Assistance: Substantial/Max assistance Treatment Bed Mobility: Bed Mobility 1 Level of Assistance 1: Substantial/Max assistance Bed Mobility Comments 1: Max A Bed Mobility To/From: Supine to sit on EOB Assistive Devices And Adaptive Equipments: No device Bed Mobility 2 Level of Assistance 2: Partial/Mod assistance Bed Mobility To/From: Sitting EOB to supine Assistive Devices And Adaptive Equipments: No device Transfers: Transfer 1 Level of Assistance 1: Partial/Mod assistance Trials/Comments 1: HHAx2, Mod A Transfer To/From: [id number]-[id number]/Jhepy-uf-Xnb Assistive Devices And Adaptive Equipments: No device Transfers 2 Technique 2: Via walking Level of Assistance 2: Partial/Mod assistance Trials/Comments 2: HHAx2, side steps at EOB for 5 steps with Mod A and Max verbal cues Transfer To/From: Bed Assistive Devices And Adaptive Equipments: No device Therapeutic Activity Therapeutic Activity Time Entry: 19 Therapeutic Activity 1: bed mobility Max A Therapeutic Activity 2: Sit to stands Mod A Therapeutic Activity 3: side steps towards HOB with Mod A and NUCLEAR EQUIPMENT SALES ENGINEER, and Max verbal cues for sequencing AM-PAC Daily Activity: Putting on and taking off regular lower body clothing: A Lot Bathing (including washing, rinsing, drying): A Lot Toileting, which includes using toilet, bedpan or urinal: A Lot Putting on and taking off regular upper body clothing: A Lot Taking care of personal grooming such as brushing teeth: A Little Eating Meals: A Little AM-PAC Daily Activity Raw Score: 14 Patient Education:Education Documentation No documentation found. Education Comments No comments found. Goals:Encounter Goals Encounter Goals (Active) Pt will demonstrate improved postural control requiring no more than min-mod A for static sitting balance in preparation for toilet transfers. Start: 08/20/24 Expected End: 09/03/24 Pt will complete txf supine>sit and bed>chair/BSC with Mod A to participate in self care tasks. Start: 08/20/24 Expected End: 09/10/24 Pt. will demonstrate improved oculomotor control seen by laterally tracking to L side 3/5 trials sustaining attention > 10 seconds Start: 08/20/24 Expected End: 09/03/24 Patient will complete UB/LD dressing with Min A Start: 08/20/24 Expected End: 09/10/24 Encounter Goals (Resolved) Complete SLCE (Completed) Start: 08/20/24 Expected End: 09/03/24 Resolved: 08/23/24 Treatment Note: If this is the last documented treatment, then it will signify discharge from acute care prior to discharge from the therapy service and will serve as the discharge summary. Elana Killam, OT GER WIRELESS * Jenna Donell, YARN DUMPER - 08/30/2024 4:14 PM MANAGER WIRELESS Treatment Session Note Patient Name: Chaitanya Tena Today's Date: 08/30/2024 Preferred Language: Tanzanian Assessment & Plan Assessment: Pt progressed to bed to chair transfers via stand/squat pivot mod-max A x2 and continues to progress towards his goals. See below for details. Plan: PT Discharge Recommendations: jail facility placement Subjective IRVIN Hampotn cleared pt for skilled PT intervention. Pt received supine in bed, no one visiting at b/s, pt pleasant and agreed to participate in treatment. Pt left supine in bed, pt in NAD, all needs in reach, RN notified of status/end of visit. Objective PT Last Visit PT Received On: 08/30/24 Activity Tolerance: Endurance: Tolerates 10 - 20 min exercise with multiple rests Sitting Balance: Supports self with more than 50% effort using upper extremity, requires therapist assistance Cognition Orientation Level: Disoriented to place, Disoriented to time, Disoriented to situation Treatment Therapeutic activity: Therapeutic Activity Therapeutic Activity Time Entry: 26 Therapeutic Activity 1: Static standing/sitting balance Therapeutic Activity 2: Side steps @ EOB Therapeutic Activity 3: Standing transfers Therapeutic Activity 4: Bed to chair transfers Therapeutic Activity 5: STS Bed Mobility: Bed Mobility 1: Level of Assistance 1: Substantial/Max assistance Bed Mobility To/From: Roll left/right, Sitting EOB to supine, Supine to sit on EOB Assistive Devices And Adaptive Equipments: No device Transfers: Transfers 1: Technique 1: Stand pivot, Stand step Level of Assistance 1: Substantial/Max assistance Trials/Comments 1: NUCLEAR EQUIPMENT SALES ENGINEER x2 Transfer To/From: Bed, Chair, Thn-dh-Oelio/Flixq-mg-Hbt Assistive Devices And Adaptive Equipments: No device AM-PAC Basic Mobility: AM-PAC Basic Mobility Inpatient Turning in bed without bedrails: A Lot Lying on back to sitting on edge of flat bed: A Lot Bed to chair: A Lot Standing up from chair: A Lot Walk in room: A Lot Climbing 3-5 stairs: A Lot Mobility Inpatient Raw Score: 12 JH-HLM Goal: 4 Mobility: Highest Level of Mobility Performed (-HLM) -HL Goal: 4 Goals: Encounter Goals Encounter Goals (Active) Pt will demonstrate improved postural control requiring no more than min-mod A for static sitting balance in preparation for toilet transfers. Start: 08/20/24 Expected End: 09/03/24 Patient will complete rolling L/R with supervision in order to decrease risk for pressure injury development in supine Start: 08/20/24 Expected End: 09/03/24 Pt will transition from supine to/from sitting edge of bed with minimum assistance in order to sit EOB for ADL participation Start: 08/20/24 Expected End: 09/03/24 Patient will transfer bed to/from chair with minimum assistance and least restrictive device to increase upright tolerance and optimize cardiorespiratory function Start: 08/20/24 Expected End: 09/03/24 Patient will ambulate at least 50 feet over level surfaces with minimum assistance and least restrictive device in prep for household ambulation and community re-integrationn Start: 08/20/24 Expected End: 09/03/24 Encounter Goals (Resolved) Complete SLCE (Completed) Start: 08/20/24 Expected End: 09/03/24 Resolved: 08/23/24 Treatment Note: If this is the last documented treatment, then it will signify discharge from acute care prior to discharge from the therapy service and will serve as the discharge summary. Jenna Marley PTA GER WIRELESS * Elana Trejo OT - 08/30/2024 9:40 AM MANAGER WIRELESS OT Encounter Note Patient Name: Chaitanya Tena Today's Date: 08/30/2024 Missed Treatment Time and Reason Pt chart reviewed. Pt undergoing a cardia test at bedside. OT will continue to follow for therapy completion. Elana Trejo OT GER WIRELESS * Lupis Falcon CCC-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 - 08/30/2024 9:04 AM MANAGER WIRELESS [facility] 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 SPEECH/LANGUAGE/COGNITION TREATMENT Patient Name: Chaitanya Tena Today's Date: 08/30/2024 Room: J5.540/J5.540 IMPRESSIONS: Dysphagia- s/p FEES 08/24 and attempted 08/26 (poorly tolerated), MBS 08/29- Swallowing efficiency, reduced RAVI has been main barrier to diet. Dysarthria, cognitive-linguistic deficits- Recommend post-acute 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 services. RECOMMENDATIONS: 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 will follow for ongoing evaluation and treatment of dysarthria, dysphagia, and cognitive-linguistic deficits. PROGNOSIS: Fair PLAN: Treatment/Interventions: Swallow function, Cognitive communication functioning, Communication functioning Frequency: 3-4 times per week GENERAL INFORMATION: Oxygenation: Room air Behavior:Resltess Level of Consciousness: Drowsy Pain: Pain Assessment: DVPRS Pain Score: 0 Preferred Language: Tanzanian TREATMENT SUMMARY: Cognitive Skills Comments: Practiced recall of orientation concepts with moderate-maximum cueing. Patient more awake today compared to previous sessions, spontaneously opening eyes. Patient was oriented to place. He was not oriented to time. Attempted using visual external aide to support orientation to time concepts but patient unable to visually attend to board despite maximum cueing. Patient required mod-max cueing to recall new information trained during session. GOALS: Encounter Goals Encounter Goals (Active) LTG - Attend in a structured environment (Progressing) Start: 08/23/24 Expected End: 09/06/24 LTG - Orientation to self, time, place, and situation (Progressing) Start: 08/23/24 Expected End: 09/06/24 STG - Complete a 5 minute simple attention task (Progressing) Start: 08/23/24 Expected End: 09/06/24 STG - Express orientation information (Progressing) Start: 08/23/24 Expected End: 09/06/24 LTG - Demonstrate intelligible speech at word level (Progressing) Start: 08/23/24 Expected End: 09/06/24 STG - Utilize speech intelligibility strategies (Progressing) Start: 08/23/24 Expected End: 09/06/24 LTG - Patient will improve on swallowing outcome measure (Progressing) Start: 08/20/24 Expected End: 09/03/24 STG - Improve airway protection (Progressing) Start: 08/20/24 Expected End: 09/03/24 STG - Improve mastication Start: 08/20/24 Expected End: 09/03/24 Encounter Goals (Resolved) Complete SLCE (Completed) Start: 08/20/24 Expected End: 09/03/24 Resolved: 08/23/24 OUTCOME MEASURES: PATIENT EDUCATION:Education Documentation No documentation found. Education Comments No comments found. If this is the last documented treatment, then it will signify discharge from acute care prior to discharge from the therapy service and will serve as the discharge summary. Therapy discharge recommendations are made by determining the patient's prior level of function, assessing current function level and establishing rehab potential. The overall discharge plan may be affected by input from Physicians, Care Coordination, medical condition/status, family support and insurance benefits. Lupis Falcon CCC-SLP GER WIRELESS * Chevy Yamilet Black MD - 08/30/2024 6:59 AM MANAGER WIRELESS Subjective NAEO. Has mittens on. Scheduled for EGS PEG placement but needs mittens off before he can go to procedure. Repeat k 4.7. Objective Last Recorded Vitals Blood pressure 147/66, pulse 78, temperature 36.6 ?C (97.9 ?F), temperature source Axillary, resp. rate 20, height 1.78 m (5' 10.08"), weight 88 kg (194 lb), SpO2 97%. Physical Exam: General: well nourished; responds to voice and answers questions appropriately; more responsive today HEENT: NCAT, anicteric sclera, mucus membranes moist CV: regular rate, intact peripheral pulses Pulm: breathing comfortably, 2L NC; no wheezing, symmetric chest expansion Abd: soft, non-tender, non-distended Ext: skin clear, no rashes, no edema Neuro Exam:Sleepy with eyes closed but has appropriate verbal response to questions; opens eyes to command Language: appropriate verbal response Speech: fluent; no dysarthria; no dysphagia CN: eyes closed. Anisocoria - right pupil 2 mm, left 3 mm, reactive to light bilaterally. Motor: Normal tone and bulk, no abnormal movements. AG in allextremities;normal tone, Sensory: grossly normal in all extremities Coordination: did not completeAssessment & Plan Acute ischemic stroke (HCC) Chaitanya Tena ( 1945) is a 78 year old male PMH prior ischemic stroke with no residul deficits, HTN, DM II, Lung Malignancy (last treatment was 2 years ago) per daughter presenting as Life Flight code stroke for left sided weakness. NIHSS 17, pre-admit MRS 0, Found to have R1 occlusion s/p TNK at 1:45 PM and EVT with TICI 2b. He continues to have decreased mentation with minimal response and is now completed Abx for CAP. However inflammatory markers remain low. Neurologically improved today. Dispo pending PEG placement. 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; Multifocal narrowing of the intracranial circulation (Right middle cerebral artery mean flow velocities and waveforms suggest >70% stenosis RT MFV 178 and LT MFV 75.) Plan:Continue Atorvastatin 80 mg Continue ASA 324 mg Continue Plavix 75mg Will likely need DAPT for 90 days per SAMPRIS Consider endovascular following carotid US read PT/OT/ST Failed MBS today 08/30/24 - Consulted EGS for PEG Tube placement -->will not do PEG until 24 hr after restraints off Starting Modafinil tomorrow AM Seroquel 12.5mg PO qAm, Seroquel 25 mg nightly Melatonin 10 mg nightly Discontinue restraints Delirium precautions CARDIOVASCULAREssential hypertension (I10) on admission PAD Temp: [36.3 ?C (97.3 ?F)-37.1 ?C (98.8 ?F)] 36.4 ?C (97.6 ?F) Heart Rate: [73-102] 77 Resp: [15-26] 19 BP: (113-168)/(55-79) 150/65 VS Parameters: SBP <160PRN none Troponin [id number] EKG revealed Sinus Rhythm Qtc: 390TTE negative 55% LVEF Atrial size normal, no pericardial effusion sub-optimal valvular assessment Right LE doppler 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 Complete occlusion of the left posterior tibialis artery Vascular Surgery consult Dr. Barajas as an outpatient for further evaluation. Plan:Amlodipine 10 mg daily Increased Losartan to 75mg daily PULMONARYAcute resp failure unspecified (J96.00) on admission Hx of possible lung malignancy Plan:Continue to monitor - Completed Ceftriaxone 1g x 5 days - Completed Azithromycin 08/29/2024 GASTROINTESTINAL Dysphagia unspecified (R13.1) on admission Nutrition: tube feedsGI route: NGT/Cortrak GI ppx: Pepcid q12h/BID bowel regimen: docusate, senna, miralax q12h last BM YARN DUMPER Unmeasured Stool Occurrence: 1 Lab ResultsComponent Value Date ALT 10 08/19/2024 AST 16 08/19/2024 Alkaline Phosphatase 73 08/19/2024 Bilirubin Total 0.20 08/19/2024 Plan:Continue NG feeds > will advance feed when appropriate - 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 -> penetrating liquids and absent swallow with liquids, reduced secretion management. Recommend non oral feeding. -FEES aborted. Patient did not tolerate. - Unable to schedule patient for MBSS, planned for 08/29/24; per speech patient is poor candidate for diet and will likely need PEG. Failed bedside ST eval today. - Spoke with daughter at [phone], OK with PEG. - RENAL Intake/Output Summary (Last 24 hours) at 08/27/2024 0755Last data filed at 08/28/2024 0000 Gross per 24 hourIntake 160 ml Output -- Net 160 ml Results from last 7 days Lab Units 08/27/24 0120 08/26/24 0414 08/25/24 0422 SODIUM mEq/L 139 141 137 POTASSIUM mEq/L 4.2 4.0 4.7* CHLORIDE mEq/L 101 102 99 CO2 mEq/L 29.1 30.1 28.2 BUN mg/dL 27* 23 19 CREATININE mg/dL 1.10 1.00 1.01 no foleyPlan: Continue to follow INFECTIOUS DISEASELeukocytosis Temp: [36.3 ?C (97.3 ?F)-37.1 ?C (98.8 ?F)] 36.4 ?C (97.6 ?F)Heart Rate: [73- 102] 77 Resp: [15-26] 19 BP: (113-168)/(55-79) 150/65 Results from last 7 daysLab Units 08/27/24 0120 08/26/24 0414 08/25/24 0422 WBC 10*3/uL 13.88* 12.05* 12.54* UA negativeCOVID/FLU/RSV negative CXR- left lung with concern for multifocal aspiration/pneumonia Monitor trend fever curve and WBC Procal WNL Abx: azithromycin x5 days (started on 08/24/24 - 08/28), ceftriaxone ( - 08/27) Blood culture with Strep hemolyticus is likely skin contaminant Plan: ctm HEMATOLOGIC Results from last 7 daysLab Units 08/27/24 0120 08/26/24 0414 08/25/24 0422 HEMOGLOBIN g/dL 12.5 12.7 12.4 PLATELETS 10*3/uL 508* 475* 465* TNK @ 1:45 PM 08/19Started on DAPT 08/20 DVT ppx: SCDs; sc heparin Plan: Continue to follow [id number] w/ hyperglycemia (E11.65) on admission Results from last 7 days Lab Units 08/27/24 0518 08/27/24 0409 08/27/24 0120 GLUCOSE mg/dL -- -- 199* POC GLUCOSE mg/dL 196* 126* -- BG goal [id number] 15 U q6h high-dose ISS Plan:BG goal < 200 Continue insulin reg MUSCULOSKELETAL AND INTEGUMENTARYPulse and groin checks per protocol Code Status: Full Code Disposition: Inpatient rehab facility placement ASHLEIGH ZavaletaGY-2 Neurology [facility] Cosigned by Jack Rivas MD at 08/31/2024 8:30 AM CST GER WIRELESS GER WIRELESS Associated attestation - Jack Rivas MD - 08/31/2024 8:30 AM CST STROKE NEUROLOGY ATTENDING ATTESTATION I have personally seen and evaluated the patient on 08/30/2024, and I waspresent for butts critical points of the encounter. I have discussed the case with and reviewed the provider note detailed above. I have personally viewed the patient's radiographic studies, laboratory tests, and medications. I agree with the above documented history, exam, assessment and plan. Please see note below for any additions and/or exceptions to the note above. ASSESSMENT 78-year-old male with history of prior ischemic stroke with no reportedresidual deficits, HTN, DM, prior lung malignancy, presented with right M1 occlusion received TNK as well as thrombectomy TICI 2B Prior documentation states concern for artery artery embolization and concernfor intracranial as well as extracranial atherosclerosis however patient has approximately 35% stenosis on DSA in the right internal carotid artery as well as no severe appearance of narrowing on post thrombectomy DSA run in his right MCA. Concern for right M1 stenosis is coming from his transcranial Doppler emboli detection study which was done immediately after his thrombectomy and may be influenced by cerebral autoregulation. Carotid ultrasound also confirms concern for closer to 50% stenosis given low end-diastolic velocity and ratio less than 2. Patient postoperatively had some Multifocal petechial hemorrhage within the bed of his infarct however this is improved on his follow-up CT brain imaging On rounds patient is agitated at times however redirectable and still on restraints. Primary goal is to wean restraints for possible PEG placement. EGS consulted. Continue aspirin but holding plavix given need for PEG Eventually plan is to discharge to inpatient rehab. Will also consult for loop recorder placement to rule out atrial fibrillation given his presence of arrhythmia, age, embolic infarct. - pending. DVT Prophylaxislow molecular weight heparin Disposition Planningipr Encounter took 36 minutes of total cumulative time examining the patient at the bedside and in discussion regarding plan of care and addressing questions and concerns, reviewing the EMR and paper chart, reviewing diagnostic studies, laboratory values, and recommendations. I provided a substantive portion of the care of this patient. I personally performed the MDM for this encounter. Jack Rivas MD, RPNIAssistant Professor, Vascular Neurology [employer] [email or web address] Office contact: [phone] Stroke Clinic: [phone] * Jack Rivas MD - 08/29/2024 6:28 PM MANAGER WIRELESS Subjective No acute events Objective Last Recorded Vitals Blood pressure 144/65, pulse 73, temperature 36.9 ?C (98.5 ?F), resp. rate 14, height 1.78 m (5' 10.08"), weight 88 kg (194 lb), SpO2 94%. Physical Exam: General: well nourished; responds to voice and answers questions appropriately; more responsive today HEENT: NCAT, anicteric sclera, mucus membranes moist CV: regular rate, intact peripheral pulses Pulm: breathing comfortably, 2L NC; no wheezing, symmetric chest expansion Abd: soft, non-tender, non-distended Ext: skin clear, no rashes, no edema Neuro Exam:Sleepy with eyes closed but has appropriate verbal response to questions; opens eyes to command Language: appropriate verbal response Speech: fluent; no dysarthria; no dysphagia CN: eyes closed. Anisocoria - right pupil 2 mm, left 3 mm, reactive to light bilaterally. Motor: Normal tone and bulk, no abnormal movements. AG in allextremities;normal tone, Sensory: grossly normal in all extremities Coordination: did not completeAssessment & Plan Acute ischemic stroke (HCC) Chaitanya Tena ( 1945) is a 78 year old male PMH prior ischemic stroke with no residul deficits, HTN, DM II, Lung Malignancy (last treatment was 2 years ago) per daughter presenting as Life Flight code stroke for left sided weakness. NIHSS 17, pre-admit MRS 0, Found to have R1 occlusion s/p TNK at 1:45 PM and EVT with TICI 2b. He continues to have decreased mentation with minimal response and is now completed Abx for CAP. However inflammatory markers remain low. Neurologically improved today. Dispo pending PEG placement. 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; Multifocal narrowing of the intracranial circulation (Right middle cerebral artery mean flow velocities and waveforms suggest >70% stenosis RT MFV 178 and LT MFV 75.) Plan:Continue Atorvastatin 80 mg Continue ASA 324 mg Continue Plavix 75mg Will likely need DAPT for atleast 3 weeks PT/OT/ST Failed MBS today 08/30/24 - Consulted EGS for PEG Tube placement --> if don't hear back tomorrow, call EGS Started on Melatonin 5--> 10mg night Starting Modafinil tomorrow AM Pending repeat EKG for QTC <450 and then start Seroquel 12.5mg PO - Decreasing restraints to only [place] CARDIOVASCULAREssential hypertension (I10) on admission PAD Temp: [36.3 ?C (97.3 ?F)-37.1 ?C (98.8 ?F)] 36.4 ?C (97.6 ?F) Heart Rate: [73-102] 77 Resp: [15-26] 19 BP: (113-168)/(55-79) 150/65 VS Parameters: SBP <160PRN none Troponin [id number] EKG revealed Sinus Rhythm Qtc: 390TTE negative 55% LVEF Atrial size normal, no pericardial effusion sub-optimal valvular assessment Right LE doppler 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 Complete occlusion of the left posterior tibialis artery Vascular Surgery consult Dr. Barajas as an outpatient for further evaluation. Plan:Amlodipine 10 mg daily Increased Losartan to 75mg daily PULMONARYAcute resp failure unspecified (J96.00) on admission Hx of possible lung malignancy Plan:Continue to monitor - Completed Ceftriaxone 1g x 5 days - Completed Azithromycin 08/29/2024 - Chest-Xray for possible PNA GASTROINTESTINALDysphagia unspecified (R13.1) on admission Nutrition: tube feedsGI route: NGT/Cortrak GI ppx: Pepcid q12h/BID bowel regimen: docusate, senna, miralax q12h last BM YARN DUMPER Unmeasured Stool Occurrence: 1 Lab ResultsComponent Value Date ALT 10 08/19/2024 AST 16 08/19/2024 Alkaline Phosphatase 73 08/19/2024 Bilirubin Total 0.20 08/19/2024 Plan:Continue NG feeds > will advance feed when appropriate - 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 -> penetrating liquids and absent swallow with liquids, reduced secretion management. Recommend non oral feeding. -FEES aborted. Patient did not tolerate. - Unable to schedule patient for MBSS, planned for 08/29/24; per speech patient is poor candidate for diet and will likely need PEG. Failed bedside ST eval today. - Spoke with daughter at [phone], OK with PEG. - Pending EGS Consult for PEG placement. NPO after midnight. RENAL Intake/Output Summary (Last 24 hours) at 08/27/2024 0755Last data filed at 08/28/2024 0000 Gross per 24 hourIntake 160 ml Output -- Net 160 ml Results from last 7 days Lab Units 08/27/24 0120 08/26/2441308/25/24421 SODIUM mEq/L 139 141 137 POTASSIUM mEq/L 4.2 4.0 4.7* CHLORIDE mEq/L 101 102 99 CO2 mEq/L 29.1 30.1 28.2 BUN mg/dL 27* 23 19 CREATININE mg/dL 1.10 1.00 1.01 no foleyPlan: Continue to follow INFECTIOUS DISEASELeukocytosis Temp: [36.3 ?C (97.3 ?F)-37.1 ?C (98.8 ?F)] 36.4 ?C (97.6 ?F)Heart Rate: [73- 102] 77 Resp: [15-26] 19 BP: (113-168)/(55-79) 150/65 Results from last 7 daysLab Units 08/27/24 01208/26/2441308/25/24421 WBC 10*3/uL 13.88* 12.05* 12.54* UA negativeCOVID/FLU/RSV negative CXR- left lung with concern for multifocal aspiration/pneumonia Monitor trend fever curve and WBC Procal WNL Abx: azithromycin x5 days (started on 08/24/24), ceftriaxone Blood culture with Strep hemolyticus is likely skin contaminant Plan: Continue azithromycin 250 mg daily for 4 days (day 4/5) Completed ceftriaxone 1 gram daily HEMATOLOGIC Results from last 7 daysLab Units 08/27/24 01208/26/2441308/25/24 042 HEMOGLOBIN g/dL 12.5 12.7 12.4 PLATELETS 10*3/uL 508* 475* 465* TNK @ 1:45 PM 127Started on DAPT 08/20 DVT ppx: SCDs; sc heparin Plan: Continue to follow [id number] w/ hyperglycemia (E11.65) on admission Results from last 7 days Lab Units 08/27/24 0518 08/27/24 0409 08/27/24 0120 GLUCOSE mg/dL -- -- 199* POC GLUCOSE mg/dL 196* 126* -- BG goal [id number] 15 U q6h high-dose ISS Plan:BG goal < 200 Continue insulin reg MUSCULOSKELETAL AND INTEGUMENTARYPulse and groin checks per protocol Code Status: Full Code Disposition: Inpatient rehab facility placement SHERICE Zavaleta-2 Neurology [facility] STROKE NEUROLOGY ATTENDING ATTESTATION I have personally seen and evaluated the patient on 08/29/2024, and I waspresent for butts critical points of the encounter. I have discussed the case with and reviewed the provider note detailed above. I have personally viewed the patient's radiographic studies, laboratory tests, and medications. I agree with the above documented history, exam, assessment and plan. Please see note below for any additions and/or exceptions to the note above. ASSESSMENT 78-year-old male with history of prior ischemic stroke with no reportedresidual deficits, HTN, DM, prior lung malignancy, presented with right M1 occlusion received TNK as well as thrombectomy TICI 2B Prior documentation states concern for artery artery embolization and concernfor intracranial as well as extracranial atherosclerosis however patient has approximately 35% stenosis on DSA in the right internal carotid artery as well as no severe appearance of narrowing on post thrombectomy DSA run in his right MCA. Concern for right M1 stenosis is coming from his transcranial Doppler emboli detection study which was done immediately after his thrombectomy and may be influenced by cerebral autoregulation. Carotid ultrasound also confirms concern for closer to 50% stenosis given low end-diastolic velocity and ratio less than 2. Patient postoperatively had some Multifocal petechial hemorrhage within the bed of his infarct however this is improved on his follow-up CT brain imaging On rounds patient is agitated at times however redirectable and still on restraints. Our plan of care is to continue dual antiplatelet therapy but hold Plavix forPEG tube placement as well as to wean restraints as possible, EGS consulted for PEG tube placement as he has failed MBS again today. Eventually plan is to discharge to inpatient rehab. Will also consult for loop recorder placement to rule out atrial fibrillation given his presence of arrhythmia, age, embolic infarct. DVT Prophylaxislow molecular weight heparin Disposition Planningipr Encounter took 38 minutes of total cumulative time examining the patient at the bedside and in discussion regarding plan of care and addressing questions and concerns, reviewing the EMR and paper chart, reviewing diagnostic studies, laboratory values, and recommendations. I provided a substantive portion of the care of this patient. I personally performed the MDM for this encounter. Jack Rivas MD, RPGayathrit Professor, Vascular Neurology [facility] [employer] [email or web address] Office contact: [phone] Stroke Clinic: [phone] lectronically signed by Jack Rivas MD at 08/30/2024 8:29 AM MANAGER WIRELESS * Jenna Marley PTA - 08/29/2024 2:00 PM MANAGER WIRELESS Treatment Session Note Patient Name: Chaitanya Tena Today's Date: 08/29/2024 Preferred Language: Tanzanian Assessment & Plan Assessment: Pt continues to require mod-maximal assistance x2 for all functional mobility. Patient participated in supine ---> sitting EOB transfers, static sitting balance practice, STS and static standing balance. Plan: PT Discharge Recommendations: Inpatient rehab facility placement [facility] RN cleared pt for skilled PT intervention. Pt received supine in bed, no one visiting at b/s, pt pleasant and agreed to participate in treatment. Pt left supine in bed, VSS, pt in NAD, all needs in reach, RN notified of status/end of visit. Objective PT Last Visit PT Received On: 08/29/24 Cognition Orientation Level: Disoriented to time, Disoriented to situation Treatment Therapeutic activity: Therapeutic Activity Therapeutic Activity Time Entry: Therapeutic Activity 1: Static sitting balance Therapeutic Activity 2: Static standing balance Therapeutic Activity 3: Standing tranfers Therapeutic Activity 4: STS Bed Mobility: Bed Mobility 1: Level of Assistance 1: Partial/Mod assistance Bed Mobility Comments 1: Mod A x2 Bed Mobility To/From: Roll left/right, Sitting EOB to supine, Supine to sit on EOB Assistive Devices And Adaptive Equipments: No device Transfers: Transfers 1: Technique 1: Stand step Level of Assistance 1: Partial/Mod assistance, Substantial/Max assistance Trials/Comments 1: Mod-Max A via NUCLE[employer] EQUIPMENT SALES ENGINEER x2 Transfer To/From: Bed, [id number] Assistive Devices And Adaptive Equipments: No device AM-PAC Basic Mobility: AM-PAC Basic Mobility Inpatient Turning in bed without bedrails: A Lot Lying on back to sitting on edge of flat bed: A Lot Bed to chair: A Lot Standing up from chair: A Lot Walk in room: Total Climbing 3-5 stairs: Total Mobility Inpatient Raw Score: 10 -HLM Goal: 4 Mobility: Highest Level of Mobility Performed (JH-HLM) -HLM Goal: 4 Goals: Encounter Goals Encounter Goals (Active) Pt will demonstrate improved postural control requiring no more than min-mod A for static sitting balance in preparation for toilet transfers. Start: 08/20/24 Expected End: 09/03/24 Patient will complete rolling L/R with supervision in order to decrease risk for pressure injury development in supine Start: 08/20/24 Expected End: 09/03/24 Pt will transition from supine to/from sitting edge of bed with minimum assistance in order to sit EOB for ADL participation Start: 08/20/24 Expected End: 09/03/24 Patient will transfer bed to/from chair with minimum assistance and least restrictive device to increase upright tolerance and optimize cardiorespiratory function Start: 08/20/24 Expected End: 09/03/24 Patient will ambulate at least 50 feet over level surfaces with minimum assistance and least restrictive device in prep for household ambulation and community re-integrationn Start: 08/20/24 Expected End: 09/03/24 Encounter Goals (Resolved) Complete SLCE (Completed) Start: 08/20/24 Expected End: 09/03/24 Resolved: 08/23/24 Treatment Note: If this is the last documented treatment, then it will signify discharge from acute care prior to discharge from the therapy service and will serve as the discharge summary. Jenna Marley PTA GER [employer] * Elana Trejo OT - 08/29/2024 8:02 AM MANAGER WIRELESS Treatment Session Note Patient Name: Chaitanya Tena Today's Date: 08/29/2024 Preferred Language: Tanzanian Assessment & Plan Assessment: Pt is tolerating therapy session, requires max encouragement this session due to lethargy. Pt is requiring Mod-Max A for all mobility and transfers. Limited by activity tolerance, ADL completion, balance, global strength, delirium, and safety awareness. Pt will continue to benefit from acute OT services to address deficits. Precautions: UE Weight Bearing Status: FWB LE Weight Bearing Status: FWB Plan: Treatment Plan/Goals Established with Patient/Caregiver: Yes OT Plan: Skilled OT OT Frequency: 3-5 times per week until discharge OT Discharge Recommendations: Inpatient rehab facility placement OT Planned Treatments: Balance training, Activities of Daily Living, Patient education, Therapeutic exercises, Therapeutic activities, Energy conservation training, Mobility training, Neuromuscular reeducation, Safety education OT Duration: Discharge Subjective Pt lying in bed agreeable to therapy session. Pain: Pain Assessment: 0-10 (08/29/2024 9:00 AM) Pain Score: 0 (08/29/2024 9:00 AM) Objective General Visit Information: Others Present: OT Mare Dominguez Treatment Bed Mobility: Bed Mobility 1 Level of Assistance 1: Substantial/Max assistance Bed Mobility Comments 1: Max Ax2, pt resisting and retropulsing Bed Mobility To/From: Supine to sit on EOB Assistive Devices And Adaptive Equipments: No device Bed Mobility 2 Level of Assistance 2: Substantial/Max assistance Bed Mobility Comments 2: Max A Bed Mobility To/From: Sitting EOB to supine Assistive Devices And Adaptive Equipments: No device Transfers: Transfer 1 Level of Assistance 1: Partial/Mod assistance Trials/Comments 1: HHAx2 and Mod Ax2, 2 sit to stands Transfer To/From: Ppi-mf-Kushp/Tomid-uh-Sde Assistive Devices And Adaptive Equipments: No device Therapeutic Activity Therapeutic Activity Time Entry: 27 Therapeutic Activity 1: sit to stands x2 Therapeutic Activity 2: bed mobility Therapeutic Activity 3: repositioning RN okay'd OT session. Pt lying in bed and agreeable to therapy session with max encouragement. Completed bed mob to the EOB with Max A. Sitting Eob with max A and retropulsing. Pt t/f STS with Max A and maintained fir 1 minute. T/f to sitting, and returned to the bed. Re-positioned for comfort. Pt was left in bed with all needs met, call light within reach, and RN notified. AM-PAC Daily Activity: Putting on and taking off regular lower body clothing: A Lot Bathing (including washing, rinsing, drying): A Lot Toileting, which includes using toilet, bedpan or urinal: A Lot Putting on and taking off regular upper body clothing: A Lot Taking care of personal grooming such as brushing teeth: A Lot Eating Meals: A Lot AM-PAC Daily Activity Raw Score: 12 Patient Education:Education Documentation No documentation found. Education Comments No comments found. Goals:Encounter Goals Encounter Goals (Active) Pt will demonstrate improved postural control requiring no more than min-mod A for static sitting balance in preparation for toilet transfers. Start: 08/20/24 Expected End: 09/03/24 Pt will complete txf supine>sit and bed>chair/BSC with Mod A to participate in self care tasks. Start: 08/20/24 Expected End: 09/10/24 Pt. will demonstrate improved oculomotor control seen by laterally tracking to L side 3/5 trials sustaining attention > 10 seconds Start: 08/20/24 Expected End: 09/03/24 Patient will complete UB/LD dressing with Min A Start: 08/20/24 Expected End: 09/10/24 Encounter Goals (Resolved) Complete SLCE (Completed) Start: 08/20/24 Expected End: 09/03/24 Resolved: 08/23/24 Treatment Note: If this is the last documented treatment, then it will signify discharge from acute care prior to discharge from the therapy service and will serve as the discharge summary. Elana Trejo OT [facility] * Cody Mccabe RN - 08/28/2024 6:18 PM MANAGER WIRELESS CASE MANAGEMENT ROUTINE DISCHARGE PLANNING NOTE LOS: 9 days BARRIERS: PEG, restraints DISCHARGE PLAN A: [facility] DISCHARGE PLAN B: YUNG: 08/28/2024 Additional Comments: Pt still pending nutrition route. CM/SW will continue to follow patient for further DC planning needs. Cody Mccabe RN Case Manager [phone] [facility] * Roger Jones MD - 08/28/2024 5:23 PM MANAGER WIRELESS Subjective No acute events Objective Last Recorded Vitals Blood pressure 149/65, pulse 88, temperature 36.6 ?C (97.9 ?F), resp. rate 23, height 1.78 m (5' 10.08"), weight 88 kg (194 lb), SpO2 95%. Physical Exam: General: well nourished; responds to voice and answers questions appropriately; more responsive today HEENT: NCAT, anicteric sclera, mucus membranes moist CV: regular rate, intact peripheral pulses Pulm: breathing comfortably, 2L NC; no wheezing, symmetric chest expansion Abd: soft, non-tender, non-distended Ext: skin clear, no rashes, no edema Neuro Exam:Sleepy with eyes closed but has appropriate verbal response to questions; opens eyes to command Language: appropriate verbal response Speech: fluent; no dysarthria; no dysphagia CN: eyes closed. Anisocoria - right pupil 2 mm, left 3 mm, reactive to light bilaterally. Motor: Normal tone and bulk, no abnormal movements. AG in allextremities;normal tone, Sensory: grossly normal in all extremities Coordination: did not completeAssessment & Plan Acute ischemic stroke (HCC) Chaitanya Tena ( 1945) is a 78 year old male PMH prior ischemic stroke with no residul deficits, HTN, DM II, Lung Malignancy (last treatment was 2 years ago) per daughter presenting as Life Flight code stroke for left sided weakness. NIHSS 17, pre-admit MRS 0, Found to have R1 occlusion s/p TNK at 1:45 PM and EVT with TICI 2b. He continues to have decreased mentation with minimal response and is now on abx for possible CAP. However inflammatory markers remain low. Neurologically improved today. Dispo pending 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 eval. 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; Multifocal narrowing of the intracranial circulation (Right middle cerebral artery mean flow velocities and waveforms suggest >70% stenosis RT MFV 178 and LT MFV 75.) Plan:Continue Atorvastatin 80 mg Continue ASA 324 mg Continue Plavix 75mg Will likely need DAPT for 90 days per SAMPRIS Consider endovascular following carotid US read PT/OT/ST Unable to tolerate FEES and so scheduled for MBSS 08/29/24 CARDIOVASCULAR Essential hypertension (I10) on admission PAD Temp: [36.3 ?C (97.3 ?F)-37.1 ?C (98.8 ?F)] 36.4 ?C (97.6 ?F) Heart Rate: [73-102] 77 Resp: [15-26] 19 BP: (113-168)/(55-79) 150/65 VS Parameters: SBP <160PRN none Troponin [id number] EKG revealed Sinus Rhythm Qtc: 390TTE negative 55% LVEF Atrial size normal, no pericardial effusion sub-optimal valvular assessment Right LE doppler 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 Complete occlusion of the left posterior tibialis artery Vascular Surgery consult Dr. Barajas as an outpatient for further evaluation. Plan:Amlodipine 10 mg daily Increased Losartan to 75mg daily PULMONARYAcute resp failure unspecified (J96.00) on admission Hx of possible lung malignancy Plan:Continue to monitor - Completed Ceftriaxone 1g x 5 days - Start Azithromycin 500mg once and then 250mg x4 days; last day 08/29/2024 GASTROINTESTINALDysphagia unspecified (R13.1) on admission Nutrition: tube feedsGI route: NGT/Cortrak GI ppx: Pepcid q12h/BID bowel regimen: docusate, senna, miralax q12h last BM YARN DUMPER Unmeasured Stool Occurrence: 1 Lab ResultsComponent Value Date ALT 10 08/19/2024 AST 16 08/19/2024 Alkaline Phosphatase 73 08/19/2024 Bilirubin Total 0.20 08/19/2024 Plan:Continue NG feeds > will advance feed when appropriate - 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 -> penetrating liquids and absent swallow with liquids, reduced secretion management. Recommend non oral feeding. -FEES aborted. Patient did not tolerate. - Unable to schedule patient for MBSS, planned for 08/29/24; per speech patient is poor candidate for diet and will likely need PEG. Failed bedside ST eval today. - Spoke with daughter at [phone], OK with PEG. Consult EGS tomorrow for PEG placement after MBSS if failed, which is high likely RENAL Intake/Output Summary (Last 24 hours) at 08/27/2024 0755Last data filed at 08/28/2024 0000 Gross per 24 hourIntake 160 ml Output -- Net 160 ml Results from last 7 days Lab Units 08/27/24 01208/26/2441308/25/24421 SODIUM mEq/L 139 141 137 POTASSIUM mEq/L 4.2 4.0 4.7* CHLORIDE mEq/L 101 102 99 CO2 mEq/L 29.1 30.1 28.2 BUN mg/dL 27* 23 19 CREATININE mg/dL 1.10 1.00 1.01 no foleyPlan: Continue to follow INFECTIOUS DISEASELeukocytosis Temp: [36.3 ?C (97.3 ?F)-37.1 ?C (98.8 ?F)] 36.4 ?C (97.6 ?F)Heart Rate: [73- 102] 77 Resp: [15-26] 19 BP: (113-168)/(55-79) 150/65 Results from last 7 daysLab Units 08/27/24 01208/26/2441308/25/24421 WBC 10*3/uL 13.88* 12.05* 12.54* UA negativeCOVID/FLU/RSV negative CXR- left lung with concern for multifocal aspiration/pneumonia Monitor trend fever curve and WBC Procal WNL Abx: azithromycin x5 days (started on 08/24/24), ceftriaxone Blood culture with Strep hemolyticus is likely skin contaminant Plan: Continue azithromycin 250 mg daily for 4 days (day 4/5) Completed ceftriaxone 1 gram daily HEMATOLOGIC Results from last 7 daysLab Units 08/27/24 01208/26/2441308/25/24 042 HEMOGLOBIN g/dL 12.5 12.7 12.4 PLATELETS 10*3/uL 508* 475* 465* TNK @ 1:45 PM 127Started on DAPT 08/20 DVT ppx: SCDs; sc heparin Plan: Continue to follow [id number] w/ hyperglycemia (E11.65) on admission Results from last 7 days Lab Units 08/27/24 0518 08/27/24 0409 08/27/24 0120 GLUCOSE mg/dL -- -- 199* POC GLUCOSE mg/dL 196* 126* -- BG goal [id number] 15 U q6h high-dose ISS Plan:BG goal < 200 Continue insulin reg MUSCULOSKELETAL AND INTEGUMENTARYPulse and groin checks per protocol Code Status: Full Code Disposition: Inpatient rehab facility placement SHERICE Zavaleta-2 Neurology [facility] Cosigned by Bret Newsome MD at 08/28/2024 6:32 PM CST GER [facility]IRELESS GER WIRELESS Associated attestation - Bret Newsome MD - 08/28/2024 6:32 PM MANAGER WIRELESS I saw and evaluated the patient with the resident, participating in the butts portions of the service. I reviewed the resident's note and agree with the documented findings and plan of care. Patient with right M1 acute ischemic stroke status post thrombectomy on 08/19. 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 Thrombectomy report reviewed from 08/19 showing 35% stenosis of the right internal carotid artery by NASCET criteria. TCD obtained on 08/20 was greater than 70% stenosis of the right MCA. Etiology: Likely artery to artery embolization from right MCA intracranial atherosclerosis or right internal carotid atherosclerosis (less likely as plaque was only 35% stenosed) 08/27: no events overnight Plan- MBS today but failed due to MOT not coordinated? 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 Plan: PT Discharge Recommendations: Inpatient rehab facility placement Jr Woods RN cleared pt for skilled PT intervention. Pt received supine in bed, no one visiting at b/s, pt pleasant and agreed to participate in treatment. Pt left supine in bed, VSS, pt in NAD, all needs in reach, RN notified of status/end of visit. Objective PT Last Visit PT Received On: 08/28/24 General Others Present: PT Yasmeen - Sonia Cognition Orientation Level: Disoriented to time, Disoriented to situation Treatment Therapeutic activity: Therapeutic Activity Therapeutic Activity Time Entry: 39 Therapeutic Activity 1: Static sitting balance Therapeutic Activity 2: Static standing balance Therapeutic Activity 3: Standing tranfers Therapeutic Activity 4: STS Bed Mobility: Bed Mobility 1: Level of Assistance 1: Partial/Mod assistance Bed Mobility Comments 1: Mod A x2 Bed Mobility To/From: Roll left/right, Sitting EOB to supine, Supine to sit on EOB Assistive Devices And Adaptive Equipments: No device Transfers: Transfers 1: Technique 1: Stand step Level of Assistance 1: Partial/Mod assistance, Substantial/Max assistance Trials/Comments 1: Mod-Max A via NUCLEAR EQUIPMENT SALES ENGINEER x2 Transfer To/From: Bed, [id number]-[id number]-Nfokv/Oteii-bq-Mfe Assistive Devices And Adaptive Equipments: No device AM-PAC Basic Mobility: AM-PAC Basic Mobility Inpatient Turning in bed without bedrails: A Lot Lying on back to sitting on edge of flat bed: A Lot Bed to chair: A Lot Standing up from chair: A Lot Walk in room: Total Climbing 3-5 stairs: Total Mobility Inpatient Raw Score: 10 -[facility] Goal: 4 Mobility: Highest Level of Mobility Performed (-HLM) -[facility] Goal: 4 Goals: Encounter Goals Encounter Goals (Active) Pt will demonstrate improved postural control requiring no more than min-mod A for static sitting balance in preparation for toilet transfers. Start: 08/20/24 Expected End: 09/03/24 Patient will complete rolling L/R with supervision in order to decrease risk for pressure injury development in supine Start: 08/20/24 Expected End: 09/03/24 Pt will transition from supine to/from sitting edge of bed with minimum assistance in order to sit EOB for ADL participation Start: 08/20/24 Expected End: 09/03/24 Patient will transfer bed to/from chair with minimum assistance and least restrictive device to increase upright tolerance and optimize cardiorespiratory function Start: 08/20/24 Expected End: 09/03/24 Patient will ambulate at least 50 feet over level surfaces with minimum assistance and least restrictive device in prep for household ambulation and community re-integrationn Start: 08/20/24 Expected End: 09/03/24 Encounter Goals (Resolved) Complete SLCE (Completed) Start: 08/20/24 Expected End: 09/03/24 Resolved: 08/23/24 Treatment Note: If this is the last documented treatment, then it will signify discharge from acute care prior to discharge from the therapy service and will serve as the discharge summary. Jenna Marley PTA GER [employer] * Lupis Falcon, 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 - 08/28/2024 9:51 AM MANAGER WIRELESS Images from the original note were not included. [facility] 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 DYSPHAGIA TREATMENT Patient Name: Chaitanya Tena Today's Date: 08/28/2024 Room: [place] [id number] IMPRESSIONS: Dysphagia- s/p FEES 08/24 and attempted 08/26 (poorly tolerated), attempted MBS 08/28 (unable to coordinate travel). Planning to re-attempt MBS, but based on clinical presentation at bedside, may require longer term means of nutrition and hydration due to the amount of cueing he needs to maintain attention and initiate swallowing Dysarthria, cognitive-linguistic deficits- Recommend post-acute [employer]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 services. RECOMMENDATIONS: Diet Recommendations: Non-oral feeding Medications: Non oral Oral care: Suction toothbrush , Every 6 hours PROGNOSIS: Fair PLAN: Treatment/Interventions: (Ongoing evaluation of swallowing function, Cognitive/motor speech evaluation when RAVI appropriate) Frequency: 3-4 times per week GENERAL INFORMATION: Oxygenation: Room air Behavior:Cooperative Level of Consciousness: Lethargic Pain: Pain Assessment: DVPRS Pain Score: 0 Diet Prior to this Treatment: Temporary Means of Alternative Nutrition & Hydration Preferred Language: Tanzanian TREATMENT SUMMARY: Swallow Comments: MBS pending. Attempted this a.m. per communication technician but RN and lithopone charger unable to travel. D/w MD to inquire if patient able to travel without RN and MD placed MD to RN order that patient was ok to travel to [facility] without RN. vocational technical education teacher reported being unsure if it could be reattempted today due to other scheduled studies. Patient practiced aerobika at level 1 to target improving secretion management. Practiced PO trials of puree to target improving swallowing efficiency/safety. Patient required maximum cues to maintain oral transit and consistently initiate a swallow. He was unable to swallow without verbal cueing. OUTCOME MEASURES: International Dysphagia Diet Standardization Initiative - IDDSI Solids - N/A Liquids - N/A IDDSI Level - 0 GOALS: Encounter Goals Encounter Goals (Active) LTG - Attend in a structured environment (Progressing) Start: 08/23/24 Expected End: 09/06/24 LTG - Orientation to self, time, place, and situation (Progressing) Start: 08/23/24 Expected End: 09/06/24 STG - Complete a 5 minute simple attention task (Progressing) Start: 08/23/24 Expected End: 09/06/24 STG - Express orientation information (Progressing) Start: 08/23/24 Expected End: 09/06/24 LTG - Demonstrate intelligible speech at word level (Progressing) Start: 08/23/24 Expected End: 09/06/24 STG - Utilize speech intelligibility strategies (Progressing) Start: 08/23/24 Expected End: 09/06/24 LTG - Patient will improve on swallowing outcome measure (Progressing) Start: 08/20/24 Expected End: 09/03/24 STG - Improve airway protection (Progressing) Start: 08/20/24 Expected End: 09/03/24 STG - Improve mastication Start: 08/20/24 Expected End: 09/03/24 Encounter Goals (Resolved) Complete SLCE (Completed) Start: 08/20/24 Expected End: 09/03/24 Resolved: 08/23/24 Patient Education:Education Documentation No documentation found. Education Comments No comments found. If this is the last documented treatment, then it will signify discharge from acute care prior to discharge from the therapy service and will serve as the discharge summary. Therapy discharge recommendations are made by determining the patient's prior level of function, assessing current function level and establishing rehab potential. The overall discharge plan may be affected by input from Physicians, Care Coordination, medical condition/status, family support and insurance benefits. Lupis Falcon CCC-SLP GER [employer]LESS * Elana Trejo OT - 08/28/2024 9:30 AM MANAGER WIRELESS Treatment Session Note Patient Name: Chaitanya Tena Today's Date: 08/28/2024 Preferred Language: [place]anian Assessment & Plan Assessment: Pt is progressing with activity tolerance, and increased alertness this session. Pt completed 5 sit to stands with increased time standing each time for 10-20 seconds. Pt also attempted side steps with Max A. Pt appears to be more alert, kept eyes open for approx. 60% of todays session, though eyelid apraxia remains a barrier. Pt is limited by ADL completion, activity tolerance, balance, global strength, and safety awareness. Pt will continue to benefit from acute OT services to address deficits. Precautions: UE Weight Bearing Status: FWB LE Weight Bearing Status: FWB Plan: Treatment Plan/Goals Established with Patient/Caregiver: Yes OT Plan: Skilled OT OT Frequency: 3-5 times per week until discharge OT Discharge Recommendations: Inpatient rehab facility placement OT Planned Treatments: Balance training, Activities of Daily Living, Patient education, Therapeutic exercises, Therapeutic activities, Energy conservation training, Mobility training, Neuromuscular reeducation, Safety education OT Duration: Discharge Subjective Pt is lying in bed and agreeable to therapy session. Pain: Pain Assessment: DVPRS (08/28/2024 9:30 AM) Pain Score: 0 (08/28/2024 9:30 AM) Objective General Visit Information: Others Present: OT Sidra Self Care (ADL):Self Care/Home Management (ADLs) Time Entry: 25 UE Dressing Assistance: Partial/Mod assistance LE Dressing Assistance: Substantial/Max assistance Toileting Assistance: Substantial/Max assistance ADL Comments: standing while cleaning pt TreatmentSelf-Care: Self Care/Home Management (ADLs) Time Entry: 25 UE Dressing Assistance: Partial/Mod assistance LE Dressing Assistance: Substantial/Max assistance Toileting Assistance: Substantial/Max assistance ADL Comments: standing while cleaning pt Bed Mobility: Bed Mobility 1Level of Assistance 1: Partial/Mod assistance Bed Mobility Comments 1: Mod A Bed Mobility To/From: Supine to sit on EOB Assistive Devices And Adaptive Equipments: No device Bed Mobility 2 Level of Assistance 2: Partial/Mod assistance Bed Mobility Comments 2: Min A Bed Mobility To/From: Sitting EOB to supine Assistive Devices And Adaptive Equipments: No device Transfers: Transfer 1Level of Assistance 1: Partial/Mod assistance Trials/Comments 1: HHAx2, Mod A, completed 5 sit to stands, held each one for 10-20 seconds for pericare Transfer To/From: [id number]/[id number] Assistive Devices And Adaptive Equipments: No device IRVIN smiley OT session. Pt lying in bed and agreeable to therapy session. Completed bed mob to the EOB with Mod A. Soiled. Pt t/f STS x5 reps with a 10-20 second hold each time with Mod A, pericare completed Total A. New brief donned in standing Max A. Pt took 3 side steps towards HOB with Max A and Max tactile cues. Pt returned to the bed. Pt was left in bed with all needs met, call light within reach, and RN notified. AM-PAC Daily Activity:Putting on and taking off regular lower body clothing: A Lot Bathing (including washing, rinsing, drying): A Lot Toileting, which includes using toilet, bedpan or urinal: A Lot Putting on and taking off regular upper body clothing: A Lot Taking care of personal grooming such as brushing teeth: A Lot Eating Meals: A Lot AM-PAC Daily Activity Raw Score: 12 Patient Education:Education Documentation No documentation found. Education Comments No comments found. Goals:Encounter Goals Encounter Goals (Active) Pt will demonstrate improved postural control requiring no more than min-mod A for static sitting balance in preparation for toilet transfers. Start: 08/20/24 Expected End: 09/03/24 Pt will complete txf supine>sit and bed>chair/BSC with Mod A to participate in self care tasks. Start: 08/20/24 Expected End: 09/10/24 Pt. will demonstrate improved oculomotor control seen by laterally tracking to L side 3/5 trials sustaining attention > 10 seconds Start: 08/20/24 Expected End: 09/03/24 Patient will complete UB/LD dressing with Min A Start: 08/20/24 Expected End: 09/10/24 Encounter Goals (Resolved) Complete SLCE (Completed) Start: 08/20/24 Expected End: 09/03/24 Resolved: 08/23/24 Treatment Note: If this is the last documented treatment, then it will signify discharge from acute care prior to discharge from the therapy service and will serve as the discharge summary. Elana Trejo OT GER WIRELESS * Chevy Black MD - 08/27/2024 7:55 AM MANAGER WIRELESS Addendum 08/28/24 Query Clarification Bacteremia: Patient had positive blood culture but without other signs of systemic infection. Bacteria was Staph haemolyticus found in only one bottle. This is likely a contaminant and not a true infection. Stroke A Progress Note Subjective: HOD 8 Interval History: 08/19 PM; noted to have poor LE pulses pre and post-operatively, left groin attempted, right radial accessed instead, right LE pulses poor pulses post-procedure, CT brain done post-procedure, no hemorrhage. 08/20: NAEON. Exam Unchanged, Vitals stable. 08/21: NAEON. Patient somnolent likely secondary to recent Seroquel administration. 08/22: NAEON. Vitals stable, exam stable. 08/23: NAEON. Tmin 96 F, 08/24: CXR with possible left lung pneumonia. Started on treated for CAP and placed on tele. Sleepy this AM and did not participate in exam. Yesterday was alert and participating with PT. 08/25: continuing antibiotics; having some blood tinged urine but Hgb stable (possible 2/2 to straight cath) 08/26: NAEO. Afebrile and hemodynamically stable. 08/27/24: NAEO. Failed fees yesterday due to agitation. Scheduled for MBSS 08/28/24. He remains afebrile, hypertensive (160/69),, with normal respiratory rate on room air. Labs reviewed and significant for hyperglycemia to 302. Bacteriemia with staph haemolyticus in blood form 08/23/24 on azithromycin and ceftriaxone for CAP. 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 Per daughter presenting as Life Flight code stroke for left sided weakness. Patient's LKW was 11:40 AM today when patient was getting ready to ride his bike with daughter. Around 11:45 AM today, patient started having left face drooling and becoming dysarthric, left sided upper and lower extremity weakness. In ED, no hemorrhage was seen, CTA showed Right M1 Occlusion. Patient received 22.5mg of TNK at 1:45 PM and taken for Thrombectomy. Baseline mRS is 0 - fully functional and independent. Daughter number: [phone] Stage 4 basal cell, diagnosed in November 2019. Patient received Keytruda and oral chemotherapy which was completed in 2021. At that time patient did not want any more treatment for his malignancy. In April 2024 Found to have numerous lesions on his arms s/p removal and found to be cancerous. No further testing has been done since. Past Medical History has a past medical history of Hypertension, Lung cancer (HCC), and Stroke (HCC). Surgical History has a past surgical history that includes US transcranial doppler (TCD) emboli detection without injection (08/20/2024). 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 () Family History No family history on file. Social History Prior smoker (heavy smoker until ) Prior Alcoholic (off for the last 45 years) No illicit substances Allergies Patient has no known allergies. Home Medications Medications Prior to Admission Medication Sig Dispense Refill Last Dose/Taking aspirin EC 81 MG EC tablet Take 81 mg by mouth 1 time each day. hydroCHLOROthiazide (HYDRODiuril) 25 MG tablet Take 25 mg by mouth 1 time each day. insulin glargine (Lantus) 100 UNIT/ML injection Inject 25 Units under the skin 1 time each day. metFORMIN (Glucophage) 500 MG tablet Take 500 mg by mouth in the morning and 500 mg at noon and 500 mg in the evening. Take with meals. Review of Systems Unable to evaluate given clinical examination Physical Exam 08/27/2024 2:00 AM 08/27/2024 3:00 AM 08/27/2024 4:00 AM 08/27/2024 4:22 AM 08/27/2024 6:00 AM 08/27/2024 7:00 AM 08/27/2024 7:26 AM Vitals Systolic 128 155 152 160 150 Diastolic 79 65 67 69 65 Heart Rate 97 84 78 81 77 Temp 36.3 ?C (97.3 ?F) 36.4 ?C (97.6 ?F) Resp 20 15 Physical Exam: General: well nourished; responds to voice and answers questions appropriately; more responsive today HEENT: NCAT, anicteric sclera, mucus membranes moist CV: regular rate, intact peripheral pulses Pulm: breathing comfortably, 2L NC; no wheezing, symmetric chest expansion Abd: soft, non-tender, non-distended Ext: skin clear, no rashes, no edema Neuro Exam: Sleepy with eyes closed but has appropriate verbal response to questions; opens eyes to command Language: appropriate verbal response Speech: fluent; no dysarthria; no dysphagia CN: eyes closed. Anisocoria - right pupil 2 mm, left 3 mm, reactive to light bilaterally. Motor: Normal tone and bulk, no abnormal movements. AG in allextremities; normal tone, Sensory: grossly normal in all extremities Coordination: did not complete Results: Transcranial Doppler Ultrasound Final Report 08/20/24 Interpretation: Negative exam- No microembolic HITS were visualized in this study. Right middle cerebral artery mean flow velocities and waveforms suggest >70% stenosis RT MFV 178 and LT MFV 75. Arrhythmia visualized during study. 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 A few branches of the anterior trunk are patent. * Multifocal narrowing of the intracranial circulation, including the left MCA and both TURBO GENERATOR OILER branches.. * Atherosclerotic changes at the carotid bifurcations, carotid siphons, origin of the left vertebral artery, and V4 segment of the left vertebral artery. (All qualitative and quantitative assessments of carotid bifurcation and proximal internal carotid artery stenosis are made referencing the distal internal carotid artery, NASCET criteria.) ASSESSMENT AND PLAN Chaitanya Tena ( 1945) is a 78 year old male PMH prior ischemic stroke with no residul deficits, HTN, DM II, Lung Malignancy (last treatment was 2 years ago) per daughter presenting as Life Flight code stroke for left sided weakness. NIHSS 17, pre-admit MRS 0, Found to have R1 occlusion s/p TNK at 1:45 PM and EVT with TICI 2b. He continues to have decreased mentation with minimal response and is now on abx for possible CAP. However inflammatory markers remain low. Neurologically improved today. Dispo pending 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 eval. 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; Multifocal narrowing of the intracranial circulation (Right middle cerebral artery mean flow velocities and waveforms suggest >70% stenosis RT MFV 178 and LT MFV 75.) Plan:Continue Atorvastatin 80 mg Continue ASA 324 mg Continue Plavix 75mg Will likely need DAPT for 90 days per SAMPRIS Consider endovascular following carotid US read PT/OT/ST Unable to tolerate FEES and so scheduled for MBSS 08/28/24 CARDIOVASCULAREssential hypertension (I10) on admission PAD Temp: [36.3 ?C (97.3 ?F)-37.1 ?C (98.8 ?F)] 36.4 ?C (97.6 ?F) Heart Rate: [73-102] 77 Resp: [15-26] 19 BP: (113-168)/(55-79) 150/65 VS Parameters: SBP <140PRN none Troponin [id number] EKG revealed Sinus Rhythm Qtc: 390TTE negative 55% LVEF Atrial size normal, no pericardial effusion sub-optimal valvular assessment Right LE doppler 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 Complete occlusion of the left posterior tibialis artery Vascular Surgery consult Dr. Barajas as an outpatient for further evaluation. Plan:Amlodipine 10 mg daily Losartan 50 mg daily PULMONARYAcute resp failure unspecified (J96.00) on admission Hx of possible lung malignancy 2 L NCCXR Interstitial lung opacities are noted, bilaterally may represent senescent lung changes or scarring. Superimposed atypical infection or pulmonary edema are differential diagnosis considerations. ABG Plan: Continue to monitor - Start Ceftriaxone 1g x 5 days - Start Azithromycin 500mg once and then 250mg x4 days GASTROINTESTINALDysphagia unspecified (R13.1) on admission Nutrition: tube feedsGI route: NGT/Cortrak GI ppx: Pepcid q12h/BID bowel regimen: docusate, senna, miralax q12h last BM YARN DUMPER Unmeasured Stool Occurrence: 1 Lab ResultsComponent Value Date ALT 10 08/19/2024 AST 16 08/19/2024 Alkaline Phosphatase 73 08/19/2024 Bilirubin Total 0.20 08/19/2024 Plan:Continue NG feeds > will advance feed when appropriate - 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 -> penetrating liquids and absent swallow with liquids, reduced secretion management. Recommend non oral feeding. -FEES aborted. Patient did not tolerate. Will place order to complete MBSS 08/28/24 RENAL Intake/Output Summary (Last 24 hours) at 08/27/2024 0755Last data filed at 08/27/2024 0000 Gross per 24 hour Intake 160 ml Output -- Net 160 ml Results from last 7 daysLab Units 08/27/24 0120 08/26/244 08/25/24 0422 SODIUM mEq/L 139 141 137 POTASSIUM mEq/L 4.2 4.0 4.7* CHLORIDE mEq/L 101 102 99 CO2 mEq/L 29.1 30.1 28.2 BUN mg/dL 27* 23 19 CREATININE mg/dL 1.10 1.00 1.01 no foleyPlan: Continue to follow INFECTIOUS DISEASELeukocytosis Temp: [36.3 ?C (97.3 ?F)-37.1 ?C (98.8 ?F)] 36.4 ?C (97.6 ?F)Heart Rate: [73- 102] 77 Resp: [15-26] 19 BP: (113-168)/(55-79) 150/65 Results from last 7 days Lab Units 08/27/24 0120 08/26/24 0414 08/25/24 0422 WBC 10*3/uL 13.88* 12.05* 12.54* UA negativeCOVID/FLU/RSV negative CXR- left lung with concern for multifocal aspiration/pneumonia Monitor trend fever curve and WBC Procal WNL Abx: azithromycin x5 days (started on 08/24/24), ceftriaxone Plan: Continue azithromycin 250 mg daily for 4 days (day 3/5) Continue ceftriaxone 1 gram daily HEMATOLOGIC Results from last 7 daysLab Units 08/27/24 0120 08/26/24 0414 08/25/24 0422 HEMOGLOBIN g/dL 12.5 12.7 12.4 PLATELETS 10*3/uL 508* 475* 465* No lab exists for component: "APTT" TNK @ 1:45 PM 08/19Started on DAPT 08/20 DVT ppx: SCDs; sc heparin Plan: Continue to follow [id number] w/ hyperglycemia (E11.65) on admission Results from last 7 daysLab Units 08/27/24 0518 08/27/24 0409 08/27/24 0120 GLUCOSE mg/dL -- -- 199* POC GLUCOSE mg/dL 196* 126* -- BG goal [id number] 15 U q6h high-dose ISS Plan:BG goal < 200 Continue insulin reg MUSCULOSKELETAL AND INTEGUMENTARYPulse and groin checks per protocol Code Status: Full Code Disposition: Inpatient rehab facility placement Chevy Black [facility] Neurology PGY | [facility] Cosigned by Bret Newsome MD at 08/28/2024 6:28 PM MANAGER WIRELESS GER WIRELESS GER WIRELESS GER WIRELESS GER WIRELESS GER WIRELESS Associated attestation - Bret Newsome MD - 08/28/2024 6:28 PM MANAGER WIRELESS I saw and evaluated the patient on 12/14, participating in the butts portions of the service. I reviewed the resident's note. I agree with the resident's findings and plan. * JONATHAN CevallosAUTOCAD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 - 08/26/2024 1:15 PM MANAGER WIRELESS Speech-Language Pathology Encounter Note Patient Name: Chaitanya Tena Today's Date: 08/26/2024 Missed Treatment Time and Reason Repeat FEES attempted. Pt in 2 point restraint and family x 2 present. Pt w/decreased ability to follow commands and became agitated w/attempt scope insertion x 4 resulting in thrashing head side to side and flailing arms, despite restraints. FEES aborted. Will place order to complete MBSS 08/28/24 pending radiology schedule. Recommend con't NPO w/MAKENZIE pending MBSS. LEESA Cevallos GER WIRELESS * Chevy Yamilet Black MD - 08/26/2024 5:45 AM MANAGER WIRELESS Stroke A Progress Note Subjective: HOD 7 Interval History: 08/19 PM; noted to have poor LE pulses pre and post-operatively, left groin attempted, right radial accessed instead, right LE pulses poor pulses post-procedure, CT brain done post-procedure, no hemorrhage. 08/20: NAEON. Exam Unchanged, Vitals stable. 08/21: NAEON. Patient somnolent likely secondary to recent Seroquel administration. 08/22: NAEON. Vitals stable, exam stable. 08/23: NAEON. Tmin 96 F, 08/24: CXR with possible left lung pneumonia. Started on treated for CAP and placed on tele. Sleepy this AM and did not participate in exam. Yesterday was alert and participating with PT. 08/25: continuing antibiotics; having some blood tinged urine but Hgb stable (possible 2/2 to straight cath) 08/26: NAEO. Afebrile and hemodynamically stable. 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 Per daughter presenting as Life Flight code stroke for left sided weakness. Patient's LKW was 11:40 AM today when patient was getting ready to ride his bike with daughter. Around 11:45 AM today, patient started having left face drooling and becoming dysarthric, left sided upper and lower extremity weakness. In ED, no hemorrhage was seen, CTA showed Right M1 Occlusion. Patient received 22.5mg of TNK at 1:45 PM and taken for Thrombectomy. Baseline mRS is 0 - fully functional and independent. Daughter number: [phone] Stage 4 basal cell, diagnosed in November 2019. Patient received Keytruda and oral chemotherapy which was completed in 2021. At that time patient did not want any more treatment for his malignancy. In April 2024 Found to have numerous lesions on his arms s/p removal and found to be cancerous. No further testing has been done since. Past Medical History has a past medical history of Hypertension, Lung cancer (HCC), and Stroke (HCC). Surgical History has a past surgical history that includes US transcranial doppler (TCD) emboli detection without injection (08/20/2024). 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 () Family History No family history on file. Social History Prior smoker (heavy smoker until ) Prior Alcoholic (off for the last 45 years) No illicit substances Allergies Patient has no known allergies. Home Medications Medications Prior to Admission Medication Sig Dispense Refill Last Dose/Taking aspirin EC 81 MG EC tablet Take 81 mg by mouth 1 time each day. hydroCHLOROthiazide (HYDRODiuril) 25 MG tablet Take 25 mg by mouth 1 time each day. insulin glargine (Lantus) 100 UNIT/ML injection Inject 25 Units under the skin 1 time each day. metFORMIN (Glucophage) 500 MG tablet Take 500 mg by mouth in the morning and 500 mg at noon and 500 mg in the evening. Take with meals. Review of Systems Unable to evaluate given clinical examination Physical Exam 08/25/2024 10:00 PM 08/25/2024 11:00 PM 08/25/2024 11:23 PM 08/26/2024 1:00 AM 08/26/2024 2:00 AM 08/26/2024 4:00 AM 08/26/2024 4:50 AM Vitals Systolic 138 139 148 153 169 Diastolic 64 62 78 68 73 Heart Rate 81 87 83 84 80 Temp 36.9 ?C (98.4 ?F) 36.7 ?C (98 ?F) Resp 18 19 20 22 20 18 Physical Exam: General: well nourished; responds to voice and answers questions appropriately HEENT: NCAT, anicteric sclera, mucus membranes moist CV: regular rate, intact peripheral pulses Pulm: breathing comfortably, 2L NC; no wheezing, symmetric chest expansion Abd: soft, non-tender, non-distended Ext: skin clear, no rashes, no edema Neuro Exam: Sleepy with eyes closed but has appropriate verbal response to questions Language: appropriate verbal response Speech: fluent; no dysarthria; no dysphagia CN: eyes closed. Anisocoria - right pupil 2 mm, left 3 mm, reactive to light bilaterally. Motor: Normal tone and bulk, no abnormal movements.AG in allextremities; normal tone, Sensory: withdraws and grimaces to pain Coordination: did not complete Results: Transcranial Doppler Ultrasound Final Report 08/20/24 Interpretation: Negative exam- No microembolic HITS were visualized in this study. Right middle cerebral artery mean flow velocities and waveforms suggest >70% stenosis RT MFV 178 and LT MFV 75. Arrhythmia visualized during study. 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 A few branches of the anterior trunk are patent. * Multifocal narrowing of the intracranial circulation, including the left MCA and both TURBO GENERATOR OILER branches.. * Atherosclerotic changes at the carotid bifurcations, carotid siphons, origin of the left vertebral artery, and V4 segment of the left vertebral artery. (All qualitative and quantitative assessments of carotid bifurcation and proximal internal carotid artery stenosis are made referencing the distal internal carotid artery, NASCET criteria.) ASSESSMENT AND PLAN Chaitanya Tena ( 1945) is a 78 year old male PMH prior ischemic stroke with no residul deficits, HTN, DM II, Lung Malignancy (last treatment was 2 years ago) per daughter presenting as Life Flight code stroke for left sided weakness. NIHSS 17, pre-admit MRS 0, Found to have R1 occlusion s/p TNK at 1:45 PM and EVT with TICI 2b. He continues to have decreased mentation with minimal response and is now on abx for possible CAP. However inflammatory markers remain low. 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 Will reattempt FEES today. CARDIOVASCULAREssential hypertension (I10) on admission PAD Temp: [36.7 ?C (98 ?F)-37.2 ?C (98.9 ?F)] 36.7 ?C (98 ?F) Heart Rate: [72-99] 80 Resp: [16-29] 18 BP: (104-169)/(52-78) 169/73 FiO2 (%): [24 %] 24 % VS Parameters: SBP <140PRN none Troponin [id number] EKG revealed Sinus Rhythm Qtc: 390TTE negative 55% LVEF Atrial size normal, no pericardial effusion sub-optimal valvular assessment Right LE doppler 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 Complete occlusion of the left posterior tibialis artery Vascular Surgery consult Dr. Barajas as an outpatient for further evaluation. Plan:Amlodipine 10 mg daily Losartan 50 mg daily PULMONARYAcute resp failure unspecified (J96.00) on admission Hx of possible lung malignancy 2 L NCCXR Interstitial lung opacities are noted, bilaterally may represent senescent lung changes or scarring. Superimposed atypical infection or pulmonary edema are differential diagnosis considerations. ABG Results from last 7 days Lab Units 08/20/24 0025 POC PH, ARTERIAL 7.43 POC PCO2, ARTERIAL mmHg 44 POC PO2, ARTERIAL mmHg 95 POC HCO3, ARTERIAL mMol/L 29* POC SO2, ARTERIAL (CALC) % 97.6 POC BASE EXCESS, ARTERIAL mMol/L 4* Plan:Continue to monitor - Start Ceftriaxone 1g x 5 days - Start Azithromycin 500mg once and then 250mg x4 days GASTROINTESTINALDysphagia unspecified (R13.1) on admission Nutrition: tube feedsGI route: NGT/Cortrak GI ppx: Pepcid q12h/BID bowel regimen: docusate, senna, miralax q12h last BM YARN DUMPER Unmeasured Stool Occurrence: 1 Lab ResultsComponent Value Date ALT 10 08/19/2024 AST 16 08/19/2024 Alkaline Phosphatase 73 08/19/2024 Bilirubin Total 0.20 08/19/2024 Plan:Continue NG feeds > will advance feed when appropriate - 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 -> penetrating liquids and absent swallow with liquids, reduced secretion management. Recommend non oral feeding. - patient to have repeat fees and if fails, will discuss with family for need of PEG tube surgery consult for GT plaement? RENAL Intake/Output Summary (Last 24 hours) at 08/26/2024 0545Last data filed at 08/25/2024 0800 Gross per 24 hour Intake 160 ml Output -- Net 160 ml Results from last 7 daysLab Units 08/25/24 0422 08/24/24 0102 08/23/24 0001 SODIUM mEq/L 137 135* 138 POTASSIUM mEq/L 4.7* 4.4 4.0 CHLORIDE mEq/L 99 100 102 CO2 mEq/L 28.2 27.8 29.1 BUN mg/dL 19 16 15 CREATININE mg/dL 1.01 1.04 0.90 no foleyPlan: Continue to follow INFECTIOUS DISEASELeukocytosis Temp: [36.7 ?C (98 ?F)-37.2 ?C (98.9 ?F)] 36.7 ?C (98 ?F)Heart Rate: [72-99] 80 Resp: [16-29] 18 BP: (104-169)/(52-78) 169/73 FiO2 (%): [24 %] 24 % Results from last 7 days Lab Units 08/26/24 0414 08/25/24 0422 08/24/24 0102 WBC 10*3/uL 12.05* 12.54* 11.03* UA negativeCOVID/FLU/RSV negative CXR- left lung with concern for multifocal aspiration/pneumonia Monitor trend fever curve and WBC Procal WNL Abx: azithromycin x5 days (started on 08/24/24), ceftriaxone Plan: Continue azithromycin 250 mg daily for 4 days (day 3/5) Continue ceftriaxone 1 gram daily HEMATOLOGIC Results from last 7 daysLab Units 08/26/24 0414 08/25/24 0422 08/24/24 0102 HEMOGLOBIN g/dL 12.7 12.4 12.5 PLATELETS 10*3/uL 475* 465* 465* Results from last 7 daysLab Units 08/19/24 1329 INR 0.95 PTT Seconds 37.6* TNK @ 1:45 PM 08/19Started on DAPT 08/20 DVT ppx: SCDs; sc heparin Plan: Continue to follow [id number] w/ hyperglycemia (E11.65) on admission Results from last 7 daysLab Units 08/26/24 0421 08/25/24 2121 08/25/24 1430 POC GLUCOSE mg/dL 103* 84 268* BG goal [id number] 15 U q6h high-dose ISS Plan:BG goal < 200 Continue insulin reg MUSCULOSKELETAL AND INTEGUMENTARYPulse and groin checks per protocol Code Status: Full Code Disposition: Inpatient rehab facility placement Chevy Black [facility] Neurology PGY | [facility] Cosigned by Bret Newsome MD at 08/26/2024 3:58 PM MANAGER WIRELESS GER WIRELESS GER WIRELESS Associated attestation - Bret Newsome MD - 08/26/2024 3:58 PM MANAGER WIRELESS I saw and evaluated the patient with the resident, participating in the butts portions of the service. I reviewed the resident's note and agree with the documented findings and plan of care. Repeat fees attempted today and failed due to patient agitation. Will instead attempt MBSS on Wednesday * Cody Mccabe RN - 08/25/2024 4:24 PM MANAGER WIRELESS After-Hours/Weekend Case Management Consult Note Reason for CM Consult: Please follow for result of repeat 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 eval for admission to [facility]. Pt has auth. CASE MANAGEMENT ROUTINE DISCHARGE PLANNING NOTE LOS: 6 days BARRIERS: FEES, pneumonia, restraints DISCHARGE PLAN A: [facility] (has auth) DISCHARGE PLAN B: YUNG: 08/26/2024 Additional Comments: Pt pending repeat 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; family wants FEES done in afternoon where pt will be more awake. CM/SW will continue to follow patient for further DC planning needs. Cody Mccabe RN Case Manager [phone] GER WIRELESS * Jenna Marley PTA - 08/25/2024 4:20 PM MANAGER WIRELESS Treatment Session Note Patient Name: Chaitanya Tena Today's Date: 08/25/2024 Preferred Language: Tanzanian Assessment & Plan Assessment: Pt able to transfer to sitting EOB, participate in sitting balance practice and perform ~6 STS attempts. Pt currently requires modA for bed mobility, max A x2 for transfers and max A x2 for pre-gait training. Plan: PT Discharge Recommendations: Inpatient rehab facility placement Subjective RN cleared pt for skilled PT intervention. Pt received supine in bed, pt pleasant. Pt left supine in bed, pt in NAD, VSS, all needs in reach, RN notified of status/end of visit. Objective PT Last Visit PT Received On: 08/25/24 Cognition Orientation Level: Disoriented to place, Disoriented to time, Disoriented to situation Treatment Therapeutic activity: Therapeutic Activity Therapeutic Activity Time Entry: 30 Therapeutic Activity 1: Side steps @ EOB Therapeutic Activity 2: Static standing balance Therapeutic Activity 3: Static sitting balance Therapeutic Activity 4: STS Bed Mobility: Bed Mobility 1: Level of Assistance 1: Substantial/Max assistance Bed Mobility To/From: Roll left/right, Sitting EOB to supine, Supine to sit on EOB Assistive Devices And Adaptive Equipments: No device Transfers: Transfers 1: Technique 1: Stand step Level of Assistance 1: Substantial/Max assistance, Partial/Mod assistance Transfer To/From: Bed, Qgy-[id number]-Dixzb/Hohje-zs-Lcy Assistive Devices And Adaptive Equipments: No device AM-PAC Basic Mobility: AM-PAC Basic Mobility Inpatient Turning in bed without bedrails: None Lying on back to sitting on edge of flat bed: None Bed to chair: None Standing up from chair: None Walk in room: None Climbing 3-5 stairs: None Mobility Inpatient Raw Score: 24 -[facility] Goal: 7 Mobility: Highest Level of Mobility Performed (-HLM) -[facility] Goal: 4 Goals: Encounter Goals Encounter Goals (Active) Pt will demonstrate improved postural control requiring no more than min-mod A for static sitting balance in preparation for toilet transfers. Start: 08/20/24 Expected End: 09/03/24 Patient will complete rolling L/R with supervision in order to decrease risk for pressure injury development in supine Start: 08/20/24 Expected End: 09/03/24 Pt will transition from supine to/from sitting edge of bed with minimum assistance in order to sit EOB for ADL participation Start: 08/20/24 Expected End: 09/03/24 Patient will transfer bed to/from chair with minimum assistance and least restrictive device to increase upright tolerance and optimize cardiorespiratory function Start: 08/20/24 Expected End: 09/03/24 Patient will ambulate at least 50 feet over level surfaces with minimum assistance and least restrictive device in prep for household ambulation and community re-integrationn Start: 08/20/24 Expected End: 09/03/24 Encounter Goals (Resolved) Complete SLCE (Completed) Start: 08/20/24 Expected End: 09/03/24 Resolved: 08/23/24 Treatment Note: If this is the last documented treatment, then it will signify discharge from acute care prior to discharge from the therapy service and will serve as the discharge summary. Jenna Marley PTA [employer] * Elana Trejo OT - 08/25/2024 1:09 PM MANAGER WIRELESS Treatment Session Note Patient Name: Chaitanya Tena Today's Date: 08/25/2024 Preferred Language: Tanzanian Assessment & Plan Assessment: Pt is progressing with increased standing this session and took 2 side steps with max A. 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 Pt is limited by activity tolerance, delirium, balance, ADL completion, balance, and midline alignment. Pt will continue to benefit from acute OT services to address deficits. Precautions: UE Weight Bearing Status: FWB LE Weight Bearing Status: FWB Plan: Treatment Plan/Goals Established with Patient/Caregiver: Yes OT Plan: Skilled OT OT Frequency: 3-5 times per week until discharge OT Discharge Recommendations: Inpatient rehab facility placement OT Planned Treatments: Balance training, Activities of Daily Living, Patient education, Therapeutic exercises, Therapeutic activities, Energy conservation training, Mobility training, Neuromuscular reeducation, Safety education OT Duration: Discharge Subjective Pt lying in bed and agreeable to therapy session. Pain: Pain Assessment: DVPRS (08/25/2024 8:25 AM) Pain Score: 0 (08/25/2024 8:25 AM) Objective Self Care (ADL): Self Care/Home Management (ADLs) Time Entry: Grooming Assistance: Partial/Mod assistance UE Dressing Assistance: Partial/Mod assistance LE Dressing Assistance: Substantial/Max assistance Treatment Bed Mobility: Bed Mobility 1 Level of Assistance 1: Partial/Mod assistance Bed Mobility Comments 1: Mod A Bed Mobility To/From: Supine to sit on EOB Assistive Devices And Adaptive Equipments: No device Bed Mobility 2 Level of Assistance 2: Partial/Mod assistance Bed Mobility Comments 2: Mod A Bed Mobility To/From: Sitting EOB to supine Assistive Devices And Adaptive Equipments: No device Transfers: Transfer 1 Level of Assistance 1: Partial/Mod assistance Trials/Comments 1: Mod A, HHAx2, and compelted 5 STS Transfer To/From: Bfv-zh-Vljoa/Enfjc-rq-Xph Therapeutic Activity Therapeutic Activity Time Entry: 25 Therapeutic Activity 1: 5 sit to stands with Mod A Therapeutic Activity 2: 2 sides steps with Max A AM-PAC Daily Activity: Putting on and taking off regular lower body clothing: A Lot Bathing (including washing, rinsing, drying): A Lot Toileting, which includes using toilet, bedpan or urinal: A Lot Putting on and taking off regular upper body clothing: A Lot Taking care of personal grooming such as brushing teeth: A Lot Eating Meals: A Lot AM-PAC Daily Activity Raw Score: 12 Patient Education:Education Documentation No documentation found. Education Comments No comments found. Goals:Encounter Goals Encounter Goals (Active) Pt will demonstrate improved postural control requiring no more than min-mod A for static sitting balance in preparation for toilet transfers. Start: 08/20/24 Expected End: 09/03/24 Pt will complete txf supine>sit and bed>chair/BSC with Mod A to participate in self care tasks. Start: 08/20/24 Expected End: 09/10/24 Pt. will demonstrate improved oculomotor control seen by laterally tracking to L side 3/5 trials sustaining attention > 10 seconds Start: 08/20/24 Expected End: 09/03/24 Patient will complete UB/LD dressing with Min A Start: 08/20/24 Expected End: 09/10/24 Encounter Goals (Resolved) Complete SLCE (Completed) Start: 08/20/24 Expected End: 09/03/24 Resolved: 08/23/24 Treatment Note: If this is the last documented treatment, then it will signify discharge from acute care prior to discharge from the therapy service and will serve as the discharge summary. Elana Trejo OT [facility] * Roger Jones MD - 08/25/2024 10:14 AM MANAGER WIRELESS Stroke A Progress Note Subjective: HOD 5 Interval History: 08/19 PM; noted to have poor LE pulses pre and post-operatively, left groin attempted, right radial accessed instead, right LE pulses poor pulses post-procedure, CT brain done post-procedure, no hemorrhage. 08/20: NAEON. Exam Unchanged, Vitals stable. 08/21: NAEON. Patient somnolent likely secondary to recent Seroquel administration. 08/22: NAEON. Vitals stable, exam stable. 08/23: NAEON. Tmin 96 F, 08/24: CXR with possible left lung pneumonia. Started on treated for CAP and placed on tele. Sleepy this AM and did not participate in exam. Yesterday was alert and participating with PT. 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 Per daughter presenting as Life Flight code stroke for left sided weakness. Patient's LKW was 11:40 AM today when patient was getting ready to ride his bike with daughter. Around 11:45 AM today, patient started having left face drooling and becoming dysarthric, left sided upper and lower extremity weakness. In ED, no hemorrhage was seen, CTA showed Right M1 Occlusion. Patient received 22.5mg of TNK at 1:45 PM and taken for Thrombectomy. Baseline mRS is 0 - fully functional and independent. Daughter number: [phone] Stage 4 basal cell, diagnosed in November 2019. Patient received Keytruda and oral chemotherapy which was completed in 2021. At that time patient did not want any more treatment for his malignancy. In April 2024 Found to have numerous lesions on his arms s/p removal and found to be cancerous. No further testing has been done since. Past Medical History has a past medical history of Hypertension, Lung cancer (HCC), and Stroke (HCC). Surgical History has a past surgical history that includes US transcranial doppler (TCD) emboli detection without injection (08/20/2024). 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 () Family History No family history on file. Social History Prior smoker (heavy smoker until ) Prior Alcoholic (off for the last 45 years) No illicit substances Allergies Patient has no known allergies. Home Medications Medications Prior to Admission Medication Sig Dispense Refill Last Dose/Taking aspirin EC 81 MG EC tablet Take 81 mg by mouth 1 time each day. metFORMIN, OSM, (Fortamet) 500 MG 24 hr tablet Take 500 mg by mouth in the evening. Take with meals.. Do not crush, chew, or split. Review of Systems Unable to evaluate given clinical examination Physical Exam 08/25/2024 2:00 AM 08/25/2024 3:00 AM 08/25/2024 4:00 AM 08/25/2024 5:00 AM 08/25/2024 7:27 AM 08/25/2024 8:47 AM 08/25/2024 10:00 AM Vitals Systolic 145 157 145 170 125 104 Diastolic 62 66 62 72 62 52 Heart Rate 98 85 87 80 Temp 36.3 ?C (97.3 ?F) 37.1 ?C (98.8 ?F) Resp 22 22 20 16 19 Physical Exam: General: well nourished; sleepy and groggy on exam HEENT: NCAT, anicteric sclera, mucus membranes moist CV: regular rate, intact peripheral pulses Pulm: breathing comfortably, 2L NC; no wheezing, symmetric chest expansion Abd: soft, non-tender, non-distended Ext: skin clear, no rashes, no edema Neuro Exam: Awake, with eyes open but not following commands Language: unable to assess; Speech: moans due to painful stimuli CN: eyes closed. Pupils unequal, right pin point, left 2 mm, minimally reactive to light. Motor: Normal tone and bulk, no abnormal movements. LLE and LUE withdraws to pain; RLE and RUE AG; normal tone, Sensory: withdraws and grimaces to pain Coordination: did not complete Results: Transcranial Doppler Ultrasound Final Report 08/20/24 Interpretation: Negative exam- No microembolic HITS were visualized in this study. Right middle cerebral artery mean flow velocities and waveforms suggest >70% stenosis RT MFV 178 and LT MFV 75. Arrhythmia visualized during study. 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 A few branches of the anterior trunk are patent. * Multifocal narrowing of the intracranial circulation, including the left MCA and both [employer] branches.. * Atherosclerotic changes at the carotid bifurcations, carotid siphons, origin of the left vertebral artery, and V4 segment of the left vertebral artery. (All qualitative and quantitative assessments of carotid bifurcation and proximal internal carotid artery stenosis are made referencing the distal internal carotid artery, NASCET criteria.) ASSESSMENT AND PLAN Chaitanya Tena ( 1945) is a 78 year old male PMH prior ischemic stroke with no residul deficits, HTN, DM II, Lung Malignancy (last treatment was 2 years ago) per daughter presenting as Life Flight code stroke for left sided weakness. NIHSS 17, pre-admit MRS 0, Found to have R1 occlusion s/p TNK at 1:45 PM and EVT with TICI 2b. He continues to have decreased mentation with minimal response and is now on abx for possible CAP. However inflammatory markers remain low. 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 Will reattempt FEES as appropriate. CARDIOVASCULAREssential hypertension (I10) on admission PAD Temp: [36.3 ?C (97.3 ?F)-37.1 ?C (98.8 ?F)] 37.1 ?C (98.8 ?F) Heart Rate: [72-107] 80 Resp: [16-34] 19 BP: (104-171)/(52-84) 104/52 VS Parameters: SBP <140PRN none Troponin [id number] EKG revealed Sinus Rhythm Qtc: 390TTE negative 55% LVEF Atrial size normal, no pericardial effusion sub-optimal valvular assessment Right LE doppler 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 Complete occlusion of the left posterior tibialis artery Vascular Surgery consult Dr. Barajas as an outpatient for further evaluation. Plan: Amlodipine 10 mg daily Losartan 25 mg every day - will plan for afternoon instead of AM PULMONARYAcute resp failure unspecified (J96.00) on admission Hx of possible lung malignancy 2 L NCCXR Interstitial lung opacities are noted, bilaterally may represent senescent lung changes or scarring. Superimposed atypical infection or pulmonary edema are differential diagnosis considerations. ABG Results from last 7 days Lab Units 08/20/24 0025 POC PH, ARTERIAL 7.43 POC PCO2, ARTERIAL mmHg 44 POC PO2, ARTERIAL mmHg 95 POC HCO3, ARTERIAL mMol/L 29* POC SO2, ARTERIAL (CALC) % 97.6 POC BASE EXCESS, ARTERIAL mMol/L 4* Plan:Continue to monitor - Start Ceftriaxone 1g x 5 days - Start Azithromycin 500mg once and then 250mg x4 days GASTROINTESTINALDysphagia unspecified (R13.1) on admission Nutrition: tube feedsGI route: NGT/Cortrak GI ppx: Pepcid q12h/BID bowel regimen: docusate, senna, miralax q12h last BM YARN DUMPER Unmeasured Stool Occurrence: 1 Lab ResultsComponent Value Date ALT 10 08/19/2024 AST 16 08/19/2024 Alkaline Phosphatase 73 08/19/2024 Bilirubin Total 0.20 08/19/2024 Plan:Continue NG feeds > will advance feed when appropriate - 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 -> penetrating liquids and absent swallow with liquids, reduced secretion management. Recommend non oral feeding. - patient to have repeat fees and if fails, will discuss with family for need of PEG tube surgery consult for GT plaement? RENAL Intake/Output Summary (Last 24 hours) at 08/25/2024 1016Last data filed at 08/25/2024 0700 Gross per 24 hour Intake 940 ml Output -- Net 940 ml Results from last 7 daysLab Units 08/25/24 0422 08/24/24 0102 08/23/24 0001 SODIUM mEq/L 137 135* 138 POTASSIUM mEq/L 4.7* 4.4 4.0 CHLORIDE mEq/L 99 100 102 CO2 mEq/L 28.2 27.8 29.1 BUN mg/dL 19 16 15 CREATININE mg/dL 1.01 1.04 0.90 no foleyPlan: Continue to follow INFECTIOUS DISEASELeukocytosis Temp: [36.3 ?C (97.3 ?F)-37.1 ?C (98.8 ?F)] 37.1 ?C (98.8 ?F)Heart Rate: [72- 107] 80 Resp: [16-34] 19 BP: (104-171)/(52-84) 104/52 Results from last 7 days Lab Units 08/25/24 0422 08/24/24 0102 08/23/24 0001 WBC 10*3/uL 12.54* 11.03* 13.82* UA negativeCOVID/FLU/RSV negative CXR- left lung with concern for multifocal aspiration/pneumonia Monitor trend fever curve and WBC Procal WNL Abx: azithromycin x5 days (started on 08/24/24), ceftriaxone Plan: Continue azithromycin 250 mg daily for 4 days Continue ceftriaxone 1 gram daily HEMATOLOGIC Results from last 7 daysLab Units 08/25/24 0422 08/24/24 0102 08/23/24 0001 HEMOGLOBIN g/dL 12.4 12.5 11.7* PLATELETS 10*3/uL 465* 465* 458* Results from last 7 daysLab Units 08/19/24 1329 INR 0.95 PTT Seconds 37.6* TNK @ 1:45 PM 08/19Started on DAPT 08/20 DVT ppx: SCDs; sc heparin Plan: Continue to follow [id number] w/ hyperglycemia (E11.65) on admission Results from last 7 daysLab Units 08/25/24 0737 08/25/24 0422 08/25/24 0212 GLUCOSE mg/dL -- 266* -- POC GLUCOSE mg/dL 199* -- 230* BG goal [id number] 15 U q6h high-dose ISS Plan: BG goal < 200 Continue insulin reg MUSCULOSKELETAL AND INTEGUMENTARYPulse and groin checks per protocol Code Status: Full Code Disposition: Inpatient rehab facility placement Roger Jones MDNeurology PGY 2 | [facility] Cosigned by Bret Newsome MD at 08/25/2024 7:21 PM MANAGER WIRELESS [facility] [facility] Associated attestation - Bret Newsome MD - 08/25/2024 7:21 PM MANAGER WIRELESS I saw and evaluated the patient with the resident, participating in the butts portions of the service. I reviewed the resident's note and agree with the documented findings and plan of care. Failed FEES plan to repeat this weekend to decide on PEG * Lupis Falcon [facility]-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 - 08/25/2024 7:56 AM MANAGER WIRELESS Images from the original note were not included. [facility] 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 DYSPHAGIA AND SPEECH/LANGUAGE/COGNITIVE TREATMENT Patient Name: Chaitanya Tena Today's Date: 08/25/2024 [facility] IMPRESSIONS: Dysphagia- s/p FEES 08/24. Plan to repeat when demonstrating improvements at baseline. Noted family's request in MD notes for afternoon FEES when repeated Dysarthria/cognitive-linguistic deficits- Recommend post-acute 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 services RECOMMENDATIONS: Diet Recommendations: Non-oral feeding Medications: Non oral Oral care: Suction toothbrush , Every 6 hours 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 will follow for ongoing evaluation and treatment of dysarthria, cognitive-linguistic deficits, and dysphagia. PROGNOSIS: Fair PLAN: Treatment/Interventions: (Ongoing evaluation of swallowing function, Cognitive/motor speech evaluation when RAVI appropriate) Frequency: 3-4 times per week GENERAL INFORMATION: Oxygenation: O2 via NC 2 LPM Behavior:Cooperative Level of Consciousness: Drowsy Pain: Pain Assessment: DVPRS Pain Score: 0 Diet Prior to this Treatment: Temporary Means of Alternative Nutrition & Hydration Preferred Language: Tanzanian TREATMENT SUMMARY: Swallow Comments: Practiced PO trials of puree via 1/2 tsp x 5 to target improving swallowing efficiency/safety. Patient requiring verbal cues for bolus acceptance and for maintaining oral transit/manipulation. Continues with intermittently absent swallow initiation, benefitting from verbal cues. Completed aerobika to work on secretion mangagement x 30 repetitions. Speech Comments: Introduced speech intelligibility strategies with maximum cueing. Cognitive Skills Comments: Practiced recall of orientation concepts with moderate cueing. OUTCOME MEASURES: International Dysphagia Diet Standardization Initiative - IDDSI Solids - N/A Liquids - N/A IDDSI Level - 0 GOALS: Encounter Goals Encounter Goals (Active) LTG - Attend in a structured environment (Progressing) Start: 08/23/24 Expected End: 09/06/24 LTG - Orientation to self, time, place, and situation (Progressing) Start: 08/23/24 Expected End: 09/06/24 STG - Complete a 5 minute simple attention task (Progressing) Start: 08/23/24 Expected End: 09/06/24 STG - Express orientation information (Progressing) Start: 08/23/24 Expected End: 09/06/24 LTG - Demonstrate intelligible speech at word level (Progressing) Start: 08/23/24 Expected End: 09/06/24 STG - Utilize speech intelligibility strategies (Progressing) Start: 08/23/24 Expected End: 09/06/24 LTG - Patient will improve on swallowing outcome measure (Progressing) Start: 08/20/24 Expected End: 09/03/24 STG - Improve airway protection (Progressing) Start: 08/20/24 Expected End: 09/03/24 STG - Improve mastication Start: 08/20/24 Expected End: 09/03/24 Encounter Goals (Resolved) Complete SLCE (Completed) Start: 08/20/24 Expected End: 09/03/24 Resolved: 08/23/24 Patient Education:Education Documentation No documentation found. Education Comments No comments found. If this is the last documented treatment, then it will signify discharge from acute care prior to discharge from the therapy service and will serve as the discharge summary. Therapy discharge recommendations are made by determining the patient's prior level of function, assessing current function level and establishing rehab potential. The overall discharge plan may be affected by input from Physicians, Care Coordination, medical condition/status, family support and insurance benefits. Lupis Falcon CCC-SLP [employer] * Cody Mccabe RN - 08/24/2024 4:18 PM MANAGER WIRELESS CASE MANAGEMENT ROUTINE DISCHARGE PLANNING NOTE LOS: 5 days BARRIERS: FEES, pneumonia, restraints DISCHARGE PLAN A: [facility] DISCHARGE PLAN B: YUNG: 08/26/2024 Additional Comments: Pt pending repeat 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; family wants FEES done in afternoon where pt will be more awake. CM/SW will continue to follow patient for further DC planning needs. Cody Mccabe RN Case Manager [phone] [employer] * Elana Trejo, OT - 08/24/2024 1:42 PM MANAGER WIRELESS Treatment Session Note Patient Name: Chaitanya Tena Today's Date: 08/24/2024 Preferred Language: Tanzanian Assessment & Plan Assessment: Pt is progressing with EOB sitting and standing with Mod A. 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 Pt is limited by global strength, activity tolerance, balance, ADL completion, and safety awareness. Pt will continue to benefit from acute OT services to address deficits. Precautions: UE Weight Bearing Status: FWB LE Weight Bearing Status: FWB Plan: Treatment Plan/Goals Established with Patient/Caregiver: Yes OT Plan: Skilled OT OT Frequency: 3-5 times per week until discharge OT Discharge Recommendations: Inpatient rehab facility placement OT Planned Treatments: Balance training, Activities of Daily Living, Patient education, Therapeutic exercises, Therapeutic activities, Energy conservation training, Mobility training, Neuromuscular reeducation, Safety education OT Duration: Discharge Subjective Pt lying in bed and agreeable to therapy session. Pain: Pain Assessment: DVPRS (08/24/2024 1:42 PM) Pain Score: 0 (08/24/2024 1:42 PM) Objective Self Care (ADL): Self Care/Home Management (ADLs) Time Entry: 13 Grooming Assistance: Partial/Mod assistance UE Dressing Assistance: Partial/Mod assistance LE Dressing Assistance: Substantial/Max assistance Treatment Self-Care: Self Care/Home Management (ADLs) Time Entry: 13 Grooming Assistance: Partial/Mod assistance UE Dressing Assistance: Partial/Mod assistance LE Dressing Assistance: Substantial/Max assistance Bed Mobility: Bed Mobility 1 Level of Assistance 1: Partial/Mod assistance Bed Mobility To/From: Supine to sit on EOB Assistive Devices And Adaptive Equipments: No device Bed Mobility 2 Level of Assistance 2: Partial/Mod assistance Bed Mobility To/From: Sitting EOB to supine Assistive Devices And Adaptive Equipments: No device Transfers: Transfer 1 Level of Assistance 1: Partial/Mod assistance Trials/Comments 1: Max verbal cues, and completed 2 sit to stands with Mod A Transfer To/From: [id number] Therapeutic Activity Therapeutic Activity Time Entry: 10 Therapeutic Activity 1: Sit to stands x2 Mod A AM-PAC Daily Activity: Putting on and taking off regular lower body clothing: A Lot Bathing (including washing, rinsing, drying): A Lot Toileting, which includes using toilet, bedpan or urinal: A Lot Putting on and taking off regular upper body clothing: A Lot Taking care of personal grooming such as brushing teeth: A Lot Eating Meals: A Lot AM-PAC Daily Activity Raw Score: 12 Patient Education:Education Documentation No documentation found. Education Comments No comments found. Goals:Encounter Goals Encounter Goals (Active) Pt will demonstrate improved postural control requiring no more than min-mod A for static sitting balance in preparation for toilet transfers. Start: 08/20/24 Expected End: 09/03/24 Pt will complete txf supine>sit and bed>chair/BSC with Mod A to participate in self care tasks. Start: 08/20/24 Expected End: 09/10/24 Pt. will demonstrate improved oculomotor control seen by laterally tracking to L side 3/5 trials sustaining attention > 10 seconds Start: 08/20/24 Expected End: 09/03/24 Patient will complete UB/LD dressing with Min A Start: 08/20/24 Expected End: 09/10/24 Encounter Goals (Resolved) Complete SLCE (Completed) Start: 08/20/24 Expected End: 09/03/24 Resolved: 08/23/24 Treatment Note: If this is the last documented treatment, then it will signify discharge from acute care prior to discharge from the therapy service and will serve as the discharge summary. Elana Trejo OT GER WIRELESS * Chevy Black MD - 08/24/2024 5:09 AM MANAGER WIRELESS Stroke A Progress Note Subjective: HOD 5 Interval History: 08/19 PM; noted to have poor LE pulses pre and post-operatively, left groin attempted, right radial accessed instead, right LE pulses poor pulses post-procedure, CT brain done post-procedure, no hemorrhage. 08/20: NAEON. Exam Unchanged, Vitals stable. 08/21: NAEON. Patient somnolent likely secondary to recent Seroquel administration. 08/22: NAEON. Vitals stable, exam stable. 08/23: NAEON. Tmin 96 F, 08/24: CXR with possible left lung pneumonia. Started on treated for CAP and placed on tele. Sleepy this AM and did not participate in exam. Yesterday was alert and participating with PT. 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 Per daughter presenting as Life Flight code stroke for left sided weakness. Patient's LKW was 11:40 AM today when patient was getting ready to ride his bike with daughter. Around 11:45 AM today, patient started having left face drooling and becoming dysarthric, left sided upper and lower extremity weakness. In ED, no hemorrhage was seen, CTA showed Right M1 Occlusion. Patient received 22.5mg of TNK at 1:45 PM and taken for Thrombectomy. Baseline mRS is 0 - fully functional and independent. Daughter number: [phone] Stage 4 basal cell, diagnosed in November 2019. Patient received Keytruda and oral chemotherapy which was completed in 2021. At that time patient did not want any more treatment for his malignancy. In April 2024 Found to have numerous lesions on his arms s/p removal and found to be cancerous. No further testing has been done since. Past Medical History has a past medical history of Hypertension, Lung cancer (HCC), and Stroke (HCC). Surgical History has a past surgical history that includes US transcranial doppler (TCD) emboli detection without injection (08/20/2024). 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 () Family History No family history on file. Social History Prior smoker (heavy smoker until ) Prior Alcoholic (off for the last 45 years) No illicit substances Allergies Patient has no known allergies. Home Medications Medications Prior to Admission Medication Sig Dispense Refill Last Dose/Taking aspirin EC 81 MG EC tablet Take 81 mg by mouth 1 time each day. metFORMIN, OSM, (Fortamet) 500 MG 24 hr tablet Take 500 mg by mouth in the evening. Take with meals.. Do not crush, chew, or split. Review of Systems Unable to evaluate given clinical examination Physical Exam 08/24/2024 3:00 AM 08/24/2024 4:00 AM 08/24/2024 5:19 AM 08/24/2024 6:00 AM 08/24/2024 8:01 AM 08/24/2024 8:30 AM 08/24/2024 8:32 AM Vitals Systolic 136 161 175 Diastolic 61 75 72 Heart Rate 74 79 80 76 74 Temp 37.1 ?C (98.8 ?F) 36.2 ?C (97.1 ?F) Resp 19 19 25 Physical Exam: General: well nourished; sleepy and groggy on exam HEENT: NCAT, anicteric sclera, mucus membranes moist CV: regular rate, intact peripheral pulses Pulm: breathing comfortably, 2L NC; no wheezing, symmetric chest expansion Abd: soft, non-tender, non-distended Ext: skin clear, no rashes, no edema Neuro Exam: Asleep and difficult to arouse Language: unable to assess; Speech: moans due to painful stimuli CN: eyes closed. Pupils unequal, right pin point, left 2 mm, minimally reactive to light. Motor: Normal tone and bulk, no abnormal movements. Withdraws to pain bilateral lower extremity; no movement upper extremity; normal tone, Sensory: withdraws and grimaces to pain Coordination: did not complete pre-admit mRS: Score 0: No symptoms at all. NIH STROKE SCALE SCORE ON ADMISSION 1 1a. 1a. LOC Level of Consciousness; 0-Alert 1-Drowsy 2-Stupor 3-Coma 2 1b. LOC Questions Month and age; 0-both 1-One 2-Neither 1 1c. LOC Commands Open/close eyes, Hair Dresser/release non-paretic hand; 0-Both 1-One 2-Neither 2 2. Best Gaze; 0-Normal 1-Partial 2-Forced gaze 2 3. Visual Ferro; 0-No visual loss. 1-Partial hemianopia 2-Complete 3-Bilateral 2 4. Facial Palsy; 0-None 1-Minor 2-Partial 3-Complete 2 5. Motor - R arm; 0-No drift 1-Drift 2-Some antigravity 3-No antigravity 4-No movement 2 6. Motor - R leg; 0-No drift 1-Drift 2-Some antigravity 3-No antigravity 4-No movement 7. Motor - L arm; 0-No drift 1-Drift 2-Some antigravity 3-No antigravity 4-No movement 8. Motor - L leg; 0-No drift 1-Drift 2-Some antigravity 3-No antigravity 4-No movement 9. Limb Ataxia; 0-Absent 1-1limb 2-2 limbs 10. Sensory; 0-Normal 1-Partial loss 2-Dense loss 11. Best Language; 0-Normal 1-Mild/mod 2-Severe 3-Mute 2 12. Dysarthria; 0-Normal 1-Mild/mod 2-Severe X-Untestable 1 13. Extinction and Inattention (formerly Neglect); 0-none 1-Partial 2-complete 17 TOTAL SCORE Further clinical exam documented under Impression and Plan by systems. Results: Transcranial Doppler Ultrasound Final Report 08/20/24 Interpretation: Negative exam- No microembolic HITS were visualized in this study. Right middle cerebral artery mean flow velocities and waveforms suggest >70% stenosis RT MFV 178 and LT MFV 75. Arrhythmia visualized during study. 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 A few branches of the anterior trunk are patent. * Multifocal narrowing of the intracranial circulation, including the left MCA and both TURBO GENERATOR OILER branches.. * Atherosclerotic changes at the carotid bifurcations, carotid siphons, origin of the left vertebral artery, and V4 segment of the left vertebral artery. (All qualitative and quantitative assessments of carotid bifurcation and proximal internal carotid artery stenosis are made referencing the distal internal carotid artery, NASCET criteria.) ASSESSMENT AND PLAN Chaitanya Tena ( 1945) is a 78 year old male PMH prior ischemic stroke with no residul deficits, HTN, DM II, Lung Malignancy (last treatment was 2 years ago) per daughter presenting as Life Flight code stroke for left sided weakness. NIHSS 17, pre-admit MRS 0, Found to have R1 occlusion s/p TNK at 1:45 PM and EVT with TICI 2b. He continues to have decreased mentation with minimal response and is now on abx for possible CAP. However inflammatory markers remain low. 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 Will reattempt FEES as appropriate. CARDIOVASCULAREssential hypertension (I10) on admission PAD Temp: [36.2 ?C (97.1 ?F)-37.1 ?C (98.8 ?F)] 36.2 ?C (97.1 ?F) Heart Rate: [73-137] 74 Resp: [15-26] 25 BP: (132-175)/(60-82) 175/72 VS Parameters: SBP <140PRN none Troponin [id number] EKG revealed Sinus Rhythm Qtc: 390TTE negative 55% LVEF Atrial size normal, no pericardial effusion sub-optimal valvular assessment Right LE doppler 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 Complete occlusion of the left posterior tibialis artery Vascular Surgery consult Dr. Barajas as an outpatient for further evaluation. Plan: Amlodipine 5 mg every day -> increase to 10 mg daily Losartan 25 mg qd PULMONARYAcute resp failure unspecified (J96.00) on admission Hx of possible lung malignancy 2 L NCCXR Interstitial lung opacities are noted, bilaterally may represent senescent lung changes or scarring. Superimposed atypical infection or pulmonary edema are differential diagnosis considerations. ABG Results from last 7 days Lab Units 08/20/24 0025 POC PH, ARTERIAL 7.43 POC PCO2, ARTERIAL mmHg 44 POC PO2, ARTERIAL mmHg 95 POC HCO3, ARTERIAL mMol/L 29* POC SO2, ARTERIAL (CALC) % 97.6 POC BASE EXCESS, ARTERIAL mMol/L 4* Plan:Continue to monitor GASTROINTESTINALDysphagia unspecified (R13.1) on admission Nutrition: tube feedsGI route: NGT/Cortrak GI ppx: Pepcid q12h/BID bowel regimen: docusate, senna, miralax q12h last BM YARN DUMPER Unmeasured Stool Occurrence: 1 Lab ResultsComponent Value Date ALT 10 08/19/2024 AST 16 08/19/2024 Alkaline Phosphatase 73 08/19/2024 Bilirubin Total 0.20 08/19/2024 Plan:Continue NG feeds > will advance feed when appropriate - AUTOCAD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 -> penetrating liquids and absent swallow with liquids, reduced secretion management. Recommend non oral feeding. - will discuss surgery consult for GT plaement? RENAL Intake/Output Summary (Last 24 hours) at 08/24/2024 0955Last data filed at 08/23/2024 1600 Gross per 24 hour Intake -- Output 100 ml Net -100 ml Results from last 7 daysLab Units 08/24/24 01008/23/24 0001 08/22/24 0006 SODIUM mEq/L 135* 138 138 POTASSIUM mEq/L 4.4 4.0 3.9 CHLORIDE mEq/L 100 102 99 CO2 mEq/L 27.8 29.1 30.8 BUN mg/dL 16 15 15 CREATININE mg/dL 1.04 0.90 0.94 ICU electrolyte replacement julius zamudio Plan: Continue to follow INFECTIOUS DISEASELeukocytosis Temp: [36.2 ?C (97.1 ?F)-37.1 ?C (98.8 ?F)] 36.2 ?C (97.1 ?F)Heart Rate: [73- 137] 74 Resp: [15-26] 25 BP: (132-175)/(60-82) 175/72 Results from last 7 days Lab Units 08/24/24 01008/23/24 0001 08/22/24 0006 WBC 10*3/uL 11.03* 13.82* 10.36* UA negativeCOVID/FLU/RSV negative CXR- left lung with concern for multifocal aspiration/pneumonia Monitor trend fever curve and WBC Procal WNL Abx: azithromycin x5 days (started on 08/24/24), ceftriaxone PlanContinue azithromycin 250 mg daily for 4 days Continue ceftriaxone 1 gram daily HEMATOLOGIC Results from last 7 daysLab Units 08/24/24 0102 08/23/24 0001 08/22/24 0006 HEMOGLOBIN g/dL 12.5 11.7* 11.4* PLATELETS 10*3/uL 465* 458* 449* Results from last 7 daysLab Units 08/19/24 1329 INR 0.95 PTT Seconds 37.6* TNK @ 1:45 PM 08/19Started on DAPT 08/20 DVT ppx: SCDs; sc heparin PlanContinue to follow [id number] w/ hyperglycemia (E11.65) on admission Results from last 7 daysLab Units 08/24/24 0511 08/24/24 0102 08/23/24 2139 GLUCOSE mg/dL -- 329* -- POC GLUCOSE mg/dL 280* -- 363* BG goal [id number] 15 U q6h high-dose ISS Plan:BG goal < 200 Continue insulin reg MUSCULOSKELETAL AND INTEGUMENTARY Pulse and groin checks per protocol Code Status: Full Code Disposition: Inpatient rehab facility placement The patient has an illness or injury that has acutely impaired one or morevital organ systems. There is a high probability of imminent or life threatening deterioration in the patient's condition during this evaluation. This is the total time spent evaluating the patient, speaking with medical staff and family, interpreting studies, discussing the case with consultants and admitting teams, retrieving data and reviewing charts, documenting the visit, and performing bundled procedures required during patient management. Chevy Black [facility] Neurology PGY 3 | [facility] Cosigned by Bret Newsome MD at 08/25/2024 12:08 AM MANAGER WIRELESS GER WIRELESS GER WIRELESS Associated attestation - Bret Newsome MD - 08/25/2024 12:08 AM MANAGER WIRELESS I saw and evaluated the patient with the resident, participating in the butts portions of the service. I reviewed the resident's note and agree with the documented findings and plan of care. Developed aspiration pneumonia with some new O2 requirements. Now onceftriaxone and azithromycin and tolerating well. Neuroexam is stable. Failed speech evaluation again. Will need repeat fees when appropriate * Aston Merrill MD - 08/23/2024 8:00 PM MANAGER WIRELESS Neurology Overnight Brief Update Note Notified by Attending Dr. Newsome that patient was transferred to in day shift but appears to have been lethargic, on NC w/ 2l now and with CXR showing possible RLL consolidation. Patient appears stable on exam and CXR has possible consolidation. Discussed plan to initiate patient on CAP coverage ABX with ROLLER SKATE ASSEMBLER Shirin who placed orders for transfer and initiated patient on ABX. Plan: - Transferred to telemetry room - Start Ceftriaxone 1g x 5 days - Start Azithromycin 500mg once and then 250mg x4 days - Monitor respiratory status Plan communicated to Attending Dr. Mercedez Merrill MD Resident Physician Neurology [facility] | [facility] [employer] GER WIRELESS * Cody Mccabe RN - 08/23/2024 11:34 AM MANAGER WIRELESS CASE MANAGEMENT ROUTINE DISCHARGE PLANNING NOTE LOS: 4 days BARRIERS: AUTOCAD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/poss PEG, stent DISCHARGE PLAN A: [facility] DISCHARGE PLAN B: YUNG: 08/25/2024 Additional Comments: Pt pending swallow plan + stent placement. CM/SW will continue to follow patient for further DC planning needs. Cody cMcabe RN Case Manager [phone] GER WIRELESS * Jenna Marley PTA - 08/23/2024 9:49 AM MANAGER WIRELESS Treatment Session Note Patient Name: Chaitanya Tena Today's Date: 08/23/2024 Preferred Language: Tanzanian Assessment & Plan Assessment: Pt assisted with achieving sitting EOB, static sitting balance, STS attempts, side steps @ EOB and lateral scoots. Plan: PT Discharge Recommendations: Inpatient rehab facility placement Subjective Chaitanya RN cleared pt for skilled PT intervention. Pt received supine in bed, no one visiting at b/s, pt pleasant and agreed to participate in treatment. Pt left supine in bed, VSS, pt in NAD, all needs in reach, RN notified of status/end of visit. Objective PT Last Visit PT Received On: 08/23/24 Activity Tolerance: Endurance: Tolerates 10 - 20 min exercise with multiple rests Sitting Balance: Supports self with 25-50% effort using upper extremity, requires therapist assistance Treatment Therapeutic activity: Therapeutic Activity Therapeutic Activity Time Entry: 26 Therapeutic Activity 1: Static sitting balance Therapeutic Activity 2: Static standing balance Therapeutic Activity 3: Side steps @ EOB Therapeutic Activity 4: Lateral scooting to HOB Bed Mobility: Bed Mobility 1: Level of Assistance 1: Dependent, Substantial/Max assistance Bed Mobility To/From: Roll left/right, Sitting EOB to supine, Supine to sit on EOB Transfers: Transfers 1: Technique 1: Stand step Level of Assistance 1: Substantial/Max assistance Transfer To/From: Bed, Chair, Uvs-yd-Lucxw/[id number]-gr-[id number] Assistive Devices And Adaptive Equipments: No device AM-PAC Basic Mobility: AM-PAC Basic Mobility Inpatient Turning in bed without bedrails: Total Lying on back to sitting on edge of flat bed: Total Bed to chair: A Lot Standing up from chair: A Lot Walk in room: Total Climbing 3-5 stairs: Total Mobility Inpatient Raw Score: 8 -HLM Goal: 3 Mobility: Highest Level of Mobility Performed (JH-HLM) -HL Goal: 3 Goals: Encounter Goals Encounter Goals (Active) Pt will demonstrate improved postural control requiring no more than min-mod A for static sitting balance in preparation for toilet transfers. Start: 08/20/24 Expected End: 09/03/24 Patient will complete rolling L/R with supervision in order to decrease risk for pressure injury development in supine Start: 08/20/24 Expected End: 09/03/24 Pt will transition from supine to/from sitting edge of bed with minimum assistance in order to sit EOB for ADL participation Start: 08/20/24 Expected End: 09/03/24 Patient will transfer bed to/from chair with minimum assistance and least restrictive device to increase upright tolerance and optimize cardiorespiratory function Start: 08/20/24 Expected End: 09/03/24 Patient will ambulate at least 50 feet over level surfaces with minimum assistance and least restrictive device in prep for household ambulation and community re-integrationn Start: 08/20/24 Expected End: 09/03/24 Encounter Goals (Resolved) Complete SLCE (Completed) Start: 08/20/24 Expected End: 09/03/24 Resolved: 08/23/24 Treatment Note: If this is the last documented treatment, then it will signify discharge from acute care prior to discharge from the therapy service and will serve as the discharge summary. Jenna Marley PTA GER WIRELESS * Lupis Falcon CCC-AUTOCAD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 - 08/23/2024 8:10 AM MANAGER WIRELESS [facility] AUTOCAD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 SPEECH-LANGUAGE COGNITIVE EVALUATION: Patient Name: Chaitanya Tena Today's Date: 08/23/2024 Room: [place] [address] SPEECH-LANGUAGE COGNITIVE EVALUATION SUMMARY: Evaluation was limited due to patient's difficulty maintaining appropriate RAVI. Patient demonstrating severe dysarthria characterized by imprecise articulation, wet vocal quality, and reduced duration on phonation. Patient also demonstrating cognitive-linguistic deficits characterized by impaired attention, orientation, and memory. AUTOCAD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 will follow for ongoing evaluation. D/w STK team at bedside regarding patient not being ready for FEES due to RAVI/decreased secretion management. Plan to follow for ongoing evaluation. RECOMMENDATIONS: AUTOCAD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 will follow for ongoing evaluation and treatment as appropriate. PROGNOSIS: Fair PLAN: Treatment/Interventions: (Ongoing evaluation of swallowing function, treatment for motor speech and cognitive-linguistic skills in subsequent visits.) Frequency: 3-4 times per week GENERAL INFORMATION: Reason for Consult: Pt was referred for a [id number]-okgockwh-fexidbtki evaluation in the setting of CVA Oxygenation: Respiratory Status: Room air Behavior: Confused Level of Consciousness: Lethargic Pain: Pain Assessment: 0-10 Pain Score: 0 Preferred Language: Tanzanian ORAL/MOTOR: Dentition: Edentulous Face: Impaired Lips: Impaired Tongue: Impaired Larynx: Impaired Larynx Voice Quality: Impaired Larynx Voice Intensity: Impaired Larynx Volitional Cough: Impaired BREATH SUPPORT: Respiratory Status: Room air MOTOR SPEECH: Intelligibility Intelligibility: Exceptions to WFL Spontaneously Produced Words: Impaired Intelligibility Comments: Severely reduced intelligibility (imprecise articulation, wet vocal quality, reduced duration of phonation) VOICE: Respiration Characteristics of Voice: Poor duration during phonation Vocal Quality: Wet AUDITORY COMPREHENSION: (Reduced attention/RAVI contributing to impairment) Following Directions Follows one step commands: Impaired Comprehension Simple Yes/No Questions: Impaired READING COMPREHENSION: Assessment ongoing EXPRESSION: Verbal Expression Primary Mode of Expression: Verbal COGNITIVE-LINGUISTIC FUNCTIONING: Overall Cognitive Status: Impaired Behavior/Cognition: Lethargic Orientation Level: Disoriented to time, Disoriented to place, Disoriented to situation Safety Judgment: Decreased awareness of need for assistance Awareness of Deficits: Decreased awareness of deficits Attention: Difficulty sustaining attention Memory: Decreased short term memory Problem Solving: Difficulty solving simple problems OUTCOME MEASURES: Functional Assessment Scale Version V - Speech Production 1 - Severe Problem - Functional speech is intelligible less than 25% of the time GOALS: Encounter Goals Encounter Goals (Active) LTG - Attend in a structured environment Start: 08/23/24 LTG - Orientation to self, time, place, and situation Start: 08/23/24 STG - Complete a 5 minute simple attention task Start: 08/23/24 STG - Express orientation information Start: 08/23/24 LTG - Demonstrate intelligible speech at word level Start: 08/23/24 STG - Utilize speech intelligibility strategies Start: 08/23/24 LTG - Patient will improve on swallowing outcome measure (Progressing) Start: 08/20/24 Expected End: 09/03/24 STG - Improve airway protection Start: 08/20/24 Expected End: 09/03/24 STG - Improve mastication Start: 08/20/24 Expected End: 09/03/24 Encounter Goals (Resolved) Complete SLCE (Completed) Start: 08/20/24 Expected End: 09/03/24 Resolved: 08/23/24 EDUCATION:Education Documentation No documentation found. Education Comments No comments found. If this is the last documented treatment, then it will signify discharge from acute care prior to discharge from the therapy service and will serve as the discharge summary. Therapy discharge recommendations are made by determining the patient's prior level of function, assessing current function level and establishing rehab potential. The overall discharge plan may be affected by input from Physicians, Care Coordination, medical condition/status, family support and insurance benefits. Lupis Falcon CCC-SLP GER WIRELESS * Chevy Black MD - 08/23/2024 5:48 AM MANAGER WIRELESS Images from the original note were not included. 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 Per daughter presenting as Life Flight code stroke for left sided weakness. Patient's LKW was 11:40 AM today when patient was getting ready to ride his bike with daughter. Around 11:45 AM today, patient started having left face drooling and becoming dysarthric, left sided upper and lower extremity weakness. In ED, no hemorrhage was seen, CTA showed Right M1 Occlusion. Patient received 22.5mg of TNK at 1:45 PM and taken for Thrombectomy. Baseline mRS is 0 - fully functional and independent. Daughter number: [phone] Stage 4 basal cell, diagnosed in November 2019. Patient received Keytruda and oral chemotherapy which was completed in 2021. At that time patient did not want any more treatment for his malignancy. In April 2024 Found to have numerous lesions on his arms s/p removal and found to be cancerous. No further testing has been done since. Interval History: 08/19 PM; noted to have poor LE pulses pre and post-operatively, left groin attempted, right radial accessed instead, right LE pulses poor pulses post-procedure, CT brain done post-procedure, no hemorrhage. 08/20: NAEON. Exam Unchanged, Vitals stable. 08/21: NAEON. Patient somnolent likely secondary to recent Seroquel administration. 08/22: NAEON. Vitals stable, exam stable. 08/23: NAEON. Tmin 96 F, Past Medical History has a past medical history of Hypertension, Lung cancer (HCC), and Stroke (HCC). Surgical History has a past surgical history that includes US transcranial doppler (TCD) emboli detection without injection (08/20/2024). 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 () Family History No family history on file. Social History Prior smoker (heavy smoker until ) Prior Alcoholic (off for the last 45 years) No illicit substances Allergies Patient has no known allergies. Home Medications Medications Prior to Admission Medication Sig Dispense Refill Last Dose/Taking aspirin EC 81 MG EC tablet Take 81 mg by mouth 1 time each day. metFORMIN, OSM, (Fortamet) 500 MG 24 hr tablet Take 500 mg by mouth in the evening. Take with meals.. Do not crush, chew, or split. Review of Systems Unable to evaluate given clinical examination Physical Exam Physical Exam: General: well nourished; sleepy and groggy on exam HEENT: NCAT, anicteric sclera, mucus membranes moist CV: regular rate, intact peripheral pulses Pulm: breathing comfortably, no wheezing, symmetric chest expansion Abd: soft, non-tender, non-distended Ext: skin clear, no rashes, no edema Neuro Exam: A&Ox1, severely dysarthric so difficult to understand knowledge and memory Language: impaired fluency, intact comprehension, naming, and repetition Speech: severely dysarthric CN: eyes closed. Patient awake but doesn't want to open eyes today. States he wants to rest. Left Facial Asymmetry, auditory acuity intact; Motor: Normal tone and bulk, no abnormal movements. AG throughout - LUE and LLU Drift to [place], normal tone, Sensory: Intact to light touch equally on both sides Coordination: did not complete pre-admit mRS: Score 0: No symptoms at all. NIH STROKE SCALE SCORE ON ADMISSION 1 1a. 1a. LOC Level of Consciousness; 0-Alert 1-Drowsy 2-Stupor 3-Coma 2 1b. LOC Questions Month and age; 0-both 1-One 2-Neither 1 1c. LOC Commands Open/close eyes, Hair Dresser/release non-paretic hand; 0-Both 1-One 2-Neither 2 2. Best Gaze; 0-Normal 1-Partial 2-Forced gaze 2 3. Visual Ferro; 0-No visual loss. 1-Partial hemianopia 2-Complete 3-Bilateral 2 4. Facial Palsy; 0-None 1-Minor 2-Partial 3-Complete 2 5. Motor - R arm; 0-No drift 1-Drift 2-Some antigravity 3-No antigravity 4-No movement 2 6. Motor - R leg; 0-No drift 1-Drift 2-Some antigravity 3-No antigravity 4-No movement 7. Motor - L arm; 0-No drift 1-Drift 2-Some antigravity 3-No antigravity 4-No movement 8. Motor - L leg; 0-No drift 1-Drift 2-Some antigravity 3-No antigravity 4-No movement 9. Limb Ataxia; 0-Absent 1-1limb 2-2 limbs 10. Sensory; 0-Normal 1-Partial loss 2-Dense loss 11. Best Language; 0-Normal 1-Mild/mod 2-Severe 3-Mute 2 12. Dysarthria; 0-Normal 1-Mild/mod 2-Severe X-Untestable 1 13. Extinction and Inattention (formerly Neglect); 0-none 1-Partial 2-complete 17 TOTAL SCORE Further clinical exam documented under Impression and Plan by systems. Results: Transcranial Doppler Ultrasound Final Report 08/20/24 Interpretation: Negative exam- No microembolic HITS were visualized in this study. Right middle cerebral artery mean flow velocities and waveforms suggest >70% stenosis RT MFV 178 and LT MFV 75. Arrhythmia visualized during study. US carotid artery doppler bilateral ASSESSMENT AND PLAN Chaitanya Tena ( 1945) is a 78 year old male PMH prior ischemic stroke with no residul deficits, HTN, DM II, Lung Malignancy? (last treatment was 2 years ago) per daughter presenting as Life Flight code stroke for left sided weakness. NIHSS 17, pre-admit MRS 0, Found to have R1 occlusion s/p TNK at 1:45 PM and EVT with TICI 2b. 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) TNK @ 1:45 PM 08/19 EVT TICI 2b with 1 pass Repeat CTH-No hemorrhage MRI brain - R MCA large territory infarct with mild hemorrhagic transformation - A1c 9.40, LDL 86 Emboli detection: (-) Plan: ContinueAtorvastatin 80 mg Continue ASA 81 Continue Plavix Will likely need DAPT for 90 days per JAIME Carotid U/S Consider endovascular following carotid US read PT/OT/ST FEES per ST when neurologically appropriate CARDIOVASCULAR Essential hypertension (I10) on admission PAD Temp: [35.6 ?C (96 ?F)-37.6 ?C (99.6 ?F)] 35.6 ?C (96 ?F) Heart Rate: [72-92] 92 Resp: [11-23] 17 BP: (124-192)/(55-101) 164/67 VS Parameters: SBP <140 PRN none Troponin 173-301-221 EKG revealed Sinus Rhythm Qtc: 390 TTE negative 55% LVEF Atrial size normal, no pericardial effusion sub-optimal valvular assessment Right LE doppler 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 Complete occlusion of the left posterior tibialis artery Vascular Surgery consult Dr. Barajas as an outpatient for further evaluation. Plan: Amlodipine 5 mg every day Losartan 25 mg qd PULMONARY Acute resp failure unspecified (J96.00) on admission Hx of possible lung malignancy on room air w/ spO2>94% CXR Interstitial lung opacities are noted, bilaterally may represent senescent lung changes or scarring. Superimposed atypical infection or pulmonary edema are differential diagnosis considerations. ABG Results from last 7 days Lab Units 08/20/24 0025 POC PH, ARTERIAL 7.43 POC PCO2, ARTERIAL mmHg 44 POC PO2, ARTERIAL mmHg 95 POC HCO3, ARTERIAL mMol/L 29* POC SO2, ARTERIAL (CALC) % 97.6 POC BASE EXCESS, ARTERIAL mMol/L 4* Plan: Continue to monitor GASTROINTESTINAL Dysphagia unspecified (R13.1) on admission Nutrition: tube feeds GI route: NGT/Cortrak GI ppx: Pepcid q12h/BID bowel regimen: docusate, senna, miralax q12h last BM YARN DUMPER Unmeasured Stool Occurrence: 1 Lab Results Component Value Date ALT 10 08/19/2024 AST 16 08/19/2024 Alkaline Phosphatase 73 08/19/2024 Bilirubin Total 0.20 08/19/2024 Plan: Continue NG feeds > will advance feed when appropriate FEES per 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 RENAL Intake/Output Summary (Last 24 hours) at 08/23/2024 0549 Last data filed at 08/22/2024 1317 Gross per 24 hour Intake 320 ml Output 950 ml Net -630 ml Results from last 7 days Lab Units 08/23/24 0001 08/22/24 0006 08/21/24 0045 SODIUM mEq/L 138 138 137 POTASSIUM mEq/L 4.0 3.9 3.8 CHLORIDE mEq/L 102 99 100 CO2 mEq/L 29.1 30.8 31.6* BUN mg/dL 15 15 14 CREATININE mg/dL 0.90 0.94 0.96 LA 2.24-> trend ICU electrolyte replacement protocol no zamudio Plan: Continue to follow INFECTIOUS DISEASE Leukocytosis Temp: [35.6 ?C (96 ?F)-37.6 ?C (99.6 ?F)] 35.6 ?C (96 ?F) Heart Rate: [72-92] 92 Resp: [11] 17 BP: (124-192)/(55-101) 164/67 Results from last 7 days Lab Units 08/23/24 0001 08/22/24 0006 08/21/24 0045 WBC 10*3/uL 13.82* 10.36* 10.35* UA negative COVID/FLU/RSV negative CXR-Interstitial opacities Monitor trend fever curve and WBC Procal WNL no ABX indicated Plan Continue to follow HEMATOLOGIC Results from last 7 days Lab Units 08/23/24 0001 08/22/24 0006 08/21/24 0045 HEMOGLOBIN g/dL 11.7* 11.4* 11.5* PLATELETS 10*3/uL 458* 449* 437* Results from last 7 days Lab Units 08/19/24 1329 INR 0.95 PTT Seconds 37.6* TNK @ 1:45 PM 08/19 Started on DAPT 08/20 DVT ppx: SCDs; sc heparin Plan Continue to follow ENDOCRINE T2DM w/ hyperglycemia (E11.65) on admission Results from last 7 days Lab Units 08/23/24 0248 08/23/24 0001 08/22/24 2247 GLUCOSE mg/dL -- 327* -- POC GLUCOSE mg/dL 298* -- 298* BG goal 80-180 70-30 15 U q6h high-dose ISS Plan: BG goal < 200 Continue insulin reg MUSCULOSKELETAL AND INTEGUMENTARY Pulse and groin checks per protocol Code Status: Full Code Disposition: pending evals The patient has an illness or injury that has acutely impaired one or more vital organ systems. There is a high probability of imminent or life threatening deterioration in the patient's condition during this evaluation. This is the total time spent evaluating the patient, speaking with medical staff and family, interpreting studies, discussing the case with consultants and admitting teams, retrieving data and reviewing charts, documenting the visit, and performing bundled procedures required during patient management. Chevy Black MD Child Neurology PGY 3 | [facility] Cosigned by Bret Newsome MD at 08/23/2024 8:14 PM MANAGER WIRELESS GER WIRELESS GER WIRELESS Associated attestation - Bret Newsome MD - 08/23/2024 8:14 PM MANAGER WIRELESS I saw and evaluated the patient with the resident, participating in the butts portions of the service. I reviewed the resident's note and agree with the documented findings and plan of care. Patient with right M1 acute ischemic stroke status post thrombectomy on 08/19. 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 Thrombectomy report reviewed from 08/19 showing 35% stenosis of the right internal carotid artery by NASCET criteria. TCD obtained on 08/20 was greater than 70% stenosis of the right MCA. Etiology: Likely artery to artery embolization from right MCA intracranial atherosclerosis or right internal carotid atherosclerosis (less likely as plaque was only 35% stenosed) 08/23 slightly hypothermic in the morning, white blood cell count is elevated, neuroexam stable. Repeat speech evaluation pending. Plan- Follow-up carotid ultrasound results - Continue dual antiplatelet therapy for 90 days - Speech evaluation to determine PEG tube needs -Infectious workup with UA, chest x-ray, blood cultures * Jenna Marley PTA - 08/22/2024 1:59 PM MANAGER WIRELESS Treatment Session Note Patient Name: Chaitanya Tena Today's Date: 08/22/2024 Preferred Language: Tanzanian Assessment & Plan Assessment: Pt able to transfer to sitting EOB, participate in sitting balance practice and perform ~5 STS attempts. Pt currently requires modA for bed mobility, max A x2 for transfers and max A x2 for pre-gait training. Plan: PT Discharge Recommendations: Inpatient rehab facility placement Jr Luis RN cleared pt for skilled PT intervention. Pt received supine in bed, no one visiting at b/s, pt pleasant and agreed to participate in treatment. Pt left supine in bed, pt in NAD, VSS, all needs in reach, RN notified of status/end of visit. Objective PT Last Visit PT Received On: 08/22/24 General Others Present: Occupational Therapist Treatment Therapeutic activity: Therapeutic Activity Therapeutic Activity Time Entry: 10 Therapeutic Activity 1: Sitting balance Therapeutic Activity 2: STS attempts Bed Mobility: Bed Mobility 1: Level of Assistance 1: Substantial/Max assistance Bed Mobility To/From: Roll left/right, Sitting EOB to supine, Supine to sit on EOB Transfers: Transfers 1: Technique 1: Dependent lift Level of Assistance 1: Substantial/Max assistance, Dependent Trials/Comments 1: STS via NUCLEAR EQUIPMENT SALES ENGINEER x2, max-total A x2 Transfer To/From: Bed, Ppc-jn-Cmoeq/Ogcxe-nx-Pon AM-PAC Basic Mobility: AM-PAC Basic Mobility Inpatient Turning in bed without bedrails: Total Lying on back to sitting on edge of flat bed: Total Bed to chair: Total Standing up from chair: Total Walk in room: Total Climbing 3-5 stairs: Total Mobility Inpatient Raw Score: 6 -HL Goal: 2 Goals: Encounter Goals Encounter Goals (Active) Pt will demonstrate improved postural control requiring no more than min-mod A for static sitting balance in preparation for toilet transfers. Start: 08/20/24 Expected End: 09/03/24 Patient will complete rolling L/R with supervision in order to decrease risk for pressure injury development in supine Start: 08/20/24 Expected End: 09/03/24 Pt will transition from supine to/from sitting edge of bed with minimum assistance in order to sit EOB for ADL participation Start: 08/20/24 Expected End: 09/03/24 Patient will transfer bed to/from chair with minimum assistance and least restrictive device to increase upright tolerance and optimize cardiorespiratory function Start: 08/20/24 Expected End: 09/03/24 Patient will ambulate at least 50 feet over level surfaces with minimum assistance and least restrictive device in prep for household ambulation and community re-integrationn Start: 08/20/24 Expected End: 09/03/24 Encounter Goals (Resolved) Complete SLCE (Completed) Start: 08/20/24 Expected End: 09/03/24 Resolved: 08/23/24 Treatment Note: If this is the last documented treatment, then it will signify discharge from acute care prior to discharge from the therapy service and will serve as the discharge summary. Jenna Marley PTA GER WIRELESS * Elana Trejo, OT - 08/22/2024 1:29 PM MANAGER WIRELESS Treatment Session Note Patient Name: Chaitanya Tena Today's Date: 08/22/2024 Preferred Language: [place]anian Assessment & Plan Assessment: Pt is progressing with side steps this date and activity tolerance, completing increased sit to stands. Pt requires Mod A verbal cues for re-direction to task. Pt is limited by global strength, activity tolerance, ADL completion, safety awareness, and balance. Pt will continue to benefit from acute OT services to address deficits. Prognosis: Good Evaluation/Treatment Tolerance: Patient tolerated treatment well Medical Staff Made Aware: Yes Precautions: UE Weight Bearing Status: FWB LE Weight Bearing Status: FWB Plan: Treatment Plan/Goals Established with Patient/Caregiver: Yes OT Plan: Skilled OT OT Frequency: 3-5 times per week until discharge OT Discharge Recommendations: Inpatient rehab facility placement OT Planned Treatments: Balance training, Activities of Daily Living, Patient education, Therapeutic exercises, Therapeutic activities, Energy conservation training, Mobility training, Neuromuscular reeducation, Safety education OT Duration: Discharge Subjective Pt lying in bed and agreeable to therapy session. Objective General Visit Information: Family/Caregiver Present: No Self Care (ADL):Eating Assistance: Partial/Mod assistance Grooming Assistance: Partial/Mod assistance Bathing Assistance: Partial/Mod assistance UE Dressing Assistance: Partial/Mod assistance LE Dressing Assistance: Partial/Mod assistance Toileting Assistance: Partial/Mod assistance TreatmentBed Mobility: Bed Mobility 1Level of Assistance 1: Partial/Mod assistance Bed Mobility To/From: Supine to sit on EOB Assistive Devices And Adaptive Equipments: Bed rail, Head of bed elevated Bed Mobility 2 Level of Assistance 2: Partial/Mod assistance Bed Mobility To/From: Sitting EOB to supine Assistive Devices And Adaptive Equipments: No device Transfers: Transfer 1Level of Assistance 1: Partial/Mod assistance Trials/Comments 1: STS x4 and side steps with Mod A Transfer To/From: [id number]-Jfmdd/Bjlkh-rl-Nkd Therapeutic ActivityTherapeutic Activity Time Entry: 30 Therapeutic Activity 1: Sit to stands x4 with Mod A and NUCLEAR EQUIPMENT SALES ENGINEER Therapeutic Activity 2: Side steps with max A AM-PAC Daily Activity:Putting on and taking off regular lower body clothing: A Lot Bathing (including washing, rinsing, drying): A Lot Toileting, which includes using toilet, bedpan or urinal: A Lot Putting on and taking off regular upper body clothing: A Lot Taking care of personal grooming such as brushing teeth: A Lot Eating Meals: A Lot AM-PAC Daily Activity Raw Score: 12 Patient Education:Education Documentation No documentation found. Education Comments No comments found. Goals:Encounter Goals Encounter Goals (Active) Pt will demonstrate improved postural control requiring no more than min-mod A for static sitting balance in preparation for toilet transfers. Start: 08/20/24 Expected End: 09/03/24 Pt will complete txf supine>sit and bed>chair/BSC with Mod A to participate in self care tasks. Start: 08/20/24 Expected End: 09/10/24 Pt. will demonstrate improved oculomotor control seen by laterally tracking to L side 3/5 trials sustaining attention > 10 seconds Start: 08/20/24 Expected End: 09/03/24 Patient will complete UB/LD dressing with Min A Start: 08/20/24 Expected End: 09/10/24 Complete SLCE Start: 08/20/24 Expected End: 09/03/24 Treatment Note: If this is the last documented treatment, then it will signify discharge from acute care prior to discharge from the therapy service and will serve as the discharge summary. Elana Trejo OT GER WIRELESS * Lupis Falcon CCC-[employer]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 - 08/22/2024 8:13 AM MANAGER WIRELESS [facility] [employer]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 DYSPHAGIA TREATMENT Patient Name: Chaitanya Tena Today's Date: 08/22/2024 Room: [place] [address] IMPRESSIONS: Dysphagia- Recommend non-oral feeding; FEES when RAVI improves Dysarthria/cognitive-linguistic deficits- Recommend post-acute 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 services RECOMMENDATIONS: Diet Recommendations: Non-oral feeding Medications: Non oral Oral care: Suction toothbrush , Every 6 hours [employer]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 will follow for ongoing evaluation and treatment PLAN: Treatment/Interventions: (Ongoing evaluation of swallowing function, Cognitive/motor speech evaluation when RAVI appropriate) Frequency: 3-4 times per week GENERAL INFORMATION: Oxygenation: Room air Behavior:Cooperative Level of Consciousness: Lethargic Pain: Pain Assessment: 0-10 Pain Score: 0 Diet Prior to this Treatment: Temporary Means of Alternative Nutrition & Hydration Preferred Language: Tanzanian TREATMENT SUMMARY: Swallow Comments: Seen for ongoing evaluation of swallowing function. He continues to have difficult maintaining appropriate RAVI despite upright position and stimulation. Again demonstrated difficulty maintaining oral manipulation due to reduced RAVI, requiring verbal cues. Intermittent wet vocal quality demonstrated which is concerning for airway invasion. OUTCOME MEASURES: International Dysphagia Diet Standardization Initiative - IDDSI Solids - N/A Liquids - N/A IDDSI Level - 0 GOALS: Encounter Goals Encounter Goals (Active) Complete SLCE Start: 08/20/24 Expected End: 09/03/24 LTG - Patient will improve on swallowing outcome measure Start: 08/20/24 Expected End: 09/03/24 STG - Improve airway protection Start: 08/20/24 Expected End: 09/03/24 STG - Improve mastication Start: 08/20/24 Expected End: 09/03/24 Patient Education:Education Documentation No documentation found. Education Comments No comments found. If this is the last documented treatment, then it will signify discharge from acute care prior to discharge from the therapy service and will serve as the discharge summary. Therapy discharge recommendations are made by determining the patient's prior level of function, assessing current function level and establishing rehab potential. The overall discharge plan may be affected by input from Physicians, Care Coordination, medical condition/status, family support and insurance benefits. Lupis Falcon CCC-SLP GER WIRELESS * Zheng Red MD - 08/22/2024 6:51 AM MANAGER WIRELESS Images from the original note were not included. 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 Per daughter presenting as Life Flight code stroke for left sided weakness. Patient's LKW was 11:40 AM today when patient was getting ready to ride his bike with daughter. Around 11:45 AM today, patient started having left face drooling and becoming dysarthric, left sided upper and lower extremity weakness. In ED, no hemorrhage was seen, CTA showed Right M1 Occlusion. Patient received 22.5mg of TNK at 1:45 PM and taken for Thrombectomy. Baseline mRS is 0 - fully functional and independent. Daughter number: [phone] Stage 4 basal cell, diagnosed in November 2019. Patient received Keytruda and oral chemotherapy which was completed in 2021. At that time patient did not want any more treatment for his malignancy. In April 2024 Found to have numerous lesions on his arms s/p removal and found to be cancerous. No further testing has been done since. Interval History: 127 PM; noted to have poor LE pulses pre and post-operatively, left groin attempted, right radial accessed instead, right LE pulses poor pulses post-procedure, CT brain done post-procedure, no hemorrhage. 08/20: NAEON. Exam Unchanged, Vitals stable. 08/21: NAEON. Patient somnolent likely secondary to recent Seroquel administration. 08/22: NAEON. Vitals stable, exam stable. Past Medical History has a past medical history of Hypertension, Lung cancer (HCC), and Stroke (HCC). Surgical History has a past surgical history that includes US transcranial doppler (TCD) emboli detection without injection (08/20/2024). 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 () Family History No family history on file. Social History Prior smoker (heavy smoker until ) Prior Alcoholic (off for the last 45 years) No illicit substances Allergies Patient has no known allergies. Home Medications Medications Prior to Admission Medication Sig Dispense Refill Last Dose/Taking aspirin EC 81 MG EC tablet Take 81 mg by mouth 1 time each day. metFORMIN, OSM, (Fortamet) 500 MG 24 hr tablet Take 500 mg by mouth in the evening. Take with meals.. Do not crush, chew, or split. Review of Systems Unable to evaluate given clinical examination Physical Exam Physical Exam: General: well nourished HEENT: NCAT, anicteric sclera, posterior pharynx clear, mucus membranes moist CV: regular rate, intact peripheral pulses Pulm: breathing comfortably, no wheezing, symmetric chest expansion Abd: soft, non-tender, non-distended Ext: skin clear, no rashes, no edema Neuro Exam: A&Ox1, severely dysarthric so difficult to understand knowledge and memory Language: impaired fluency, intact comprehension, naming, and repetition Speech: severely dysarthric CN: PERRL, 3 mm BL, Right gaze preference, no nystagmus, Left Eye Hemianopia, Left Facial Asymmetry, eyelid apraxia, facial sensation intact; auditory acuity intact; tongue midline, palate elevates symmetrically Motor: Normal tone and bulk, no abnormal movements. AG throughout - LUE and LLU Drift to [place], normal tone, full ROM I Sensory: Intact to light touch equally on both sides Coordination: unable to do dysmetria on FTN or HTS bilaterally pre-admit mRS: Score 0: No symptoms at all. NIH STROKE SCALE SCORE ON ADMISSION 1 1a. 1a. LOC Level of Consciousness; 0-Alert 1-Drowsy 2-Stupor 3-Coma 2 1b. LOC Questions Month and age; 0-both 1-One 2-Neither 1 1c. LOC Commands Open/close eyes, Hair Dresser/release non-paretic hand; 0-Both 1-One 2-Neither 2 2. Best Gaze; 0-Normal 1-Partial 2-Forced gaze 2 3. Visual Ferro; 0-No visual loss. 1-Partial hemianopia 2-Complete 3-Bilateral 2 4. Facial Palsy; 0-None 1-Minor 2-Partial 3-Complete 2 5. Motor - R arm; 0-No drift 1-Drift 2-Some antigravity 3-No antigravity 4-No movement 2 6. Motor - R leg; 0-No drift 1-Drift 2-Some antigravity 3-No antigravity 4-No movement 7. Motor - L arm; 0-No drift 1-Drift 2-Some antigravity 3-No antigravity 4-No movement 8. Motor - L leg; 0-No drift 1-Drift 2-Some antigravity 3-No antigravity 4-No movement 9. Limb Ataxia; 0-Absent 1-1limb 2-2 limbs 10. Sensory; 0-Normal 1-Partial loss 2-Dense loss 11. Best Language; 0-Normal 1-Mild/mod 2-Severe 3-Mute 2 12. Dysarthria; 0-Normal 1-Mild/mod 2-Severe X-Untestable 1 13. Extinction and Inattention (formerly Neglect); 0-none 1-Partial 2-complete 17 TOTAL SCORE Further clinical exam documented under Impression and Plan by systems. ASSESSMENT AND PLAN Chaitanya Tena ( 1945) is a 78 year old male PMH prior ischemic stroke with no residul deficits, HTN, DM II, Lung Malignancy? (last treatment was 2 years ago) per daughter presenting as Life Flight code stroke for left sided weakness. Found to have R1 occlusion s/p TNK at 1:45 PM and EVT with TICI 2b. NEUROLOGIC R M1 Occlusion NIHSS 10-19 (R29.71) on admission Neuro Exam: MS: AAO x2, following commands, speech non-fluent, moderate dysarthria, naming intact, + Neglect on Left. CN: L pupil 3, R pupil 3 , EOMI, VFF, mild LFD Motor: RUE/RLE/LLE AG LUE drift Sensory: intact to noxious stimuli throughout Etiology: Pending (likely ICAD) TNK @ 1:45 PM 08/19 EVT TICI 2b with 1 pass Repeat CTH-No hemorrhage MRI brain - R MCA large territory infarct with mild hemorrhagic transformation - A1c 9.40, LDL 86 Emboli detection: (-) Start Atorvastatin 80 mg Continue ASA 81 Continue Plavix Will likely need DAPT for 90 days per [facility] Carotid U/S Consider endovascular following carotid US read PT/OT/ST FEES per ST CARDIOVASCULAR Essential hypertension (I10) on admission PAD Temp: [37 ?C (98.6 ?F)-37.6 ?C (99.6 ?F)] 37.3 ?C (99.2 ?F) Heart Rate: [68-90] 84 Resp: [13-24] 18 BP: (113-168)/(55-71) 144/61 VS Parameters: SBP <140 PRN none Troponin 173-301-221 EKG revealed Sinus Rhythm Qtc: 390 TTE negative 55% LVEF Atrial size normal, no pericardial effusion sub-optimal valvular assessment Right LE doppler 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 Complete occlusion of the left posterior tibialis artery Vascular Surgery consult Dr. Barajas as an outpatient for further evaluation. PULMONARY Acute resp failure unspecified (J96.00) on admission Hx of possible lung malignancy on room air w/ spO2>94% CXR Interstitial lung opacities are noted, bilaterally may represent senescent lung changes or scarring. Superimposed atypical infection or pulmonary edema are differential diagnosis considerations. ABG Results from last 7 days Lab Units 08/20/24 0025 POC PH, ARTERIAL 7.43 POC PCO2, ARTERIAL mmHg 44 POC PO2, ARTERIAL mmHg 95 POC HCO3, ARTERIAL mMol/L 29* POC SO2, ARTERIAL (CALC) % 97.6 POC BASE EXCESS, ARTERIAL mMol/L 4* GASTROINTESTINAL Dysphagia unspecified (R13.1) on admission Nutrition: tube feeds GI route: NGT/Cortrak GI ppx: Pepcid q12h/BID bowel regimen: docusate, senna, miralax q12h last BM YARN DUMPER Lab Results Component Value Date ALT 10 08/19/2024 AST 16 08/19/2024 Alkaline Phosphatase 73 08/19/2024 Bilirubin Total 0.20 08/19/2024 RENAL Intake/Output Summary (Last 24 hours) at 08/22/2024 1753Last data filed at 08/22/2024 1100 Gross per 24 hour Intake 320 ml Output 950 ml Net -630 ml Results from last 7 daysLab Units 08/22/24 0006 08/21/24 0045 08/20/24 0025 08/20/24 0018 POC SODIUM, ARTERIAL mEq/L -- -- 129* -- SODIUM mEq/L 138 137 -- 136 POC POTASSIUM, ARTERIAL mEq/L -- -- 4.1 -- POTASSIUM mEq/L 3.9 3.8 -- 4.4 POC CHLORIDE mEq/L -- -- 95 -- CHLORIDE mEq/L 99 100 -- 98 CO2 mEq/L 30.8 31.6* -- 28.8 BUN mg/dL 15 14 -- 18 CREATININE mg/dL 0.94 0.96 -- 1.00 LA 2.24-> trendICU electrolyte replacement protocol no lizz INFECTIOUS DISEASELeukocytosis Temp: [37 ?C (98.6 ?F)-37.6 ?C (99.6 ?F)] 37.3 ?C (99.2 ?F)Heart Rate: [68-90] 84 Resp: [-24] 18 BP: (113-168)/(55-71) 144/61 Results from last 7 days Lab Units 08/22/24 0006 08/21/24 0045 08/20/24 0018 WBC 10*3/uL 10.36* 10.35* 15.50* UA negativeCOVID/FLU/RSV negative CXR-Interstitial opacities Monitor trend fever curve and WBC Procal WNL no ABX indicated HEMATOLOGIC Results from last 7 daysLab Units 08/22/24 0006 08/21/24 0045 08/20/24 0018 HEMOGLOBIN g/dL 11.4* 11.5* 11.3* PLATELETS 10*3/uL 449* 437* 491* Results from last 7 daysLab Units 08/19/24 1329 INR 0.95 PTT Seconds 37.6* TNK @ 1:45 PM 08/19Started on DAPT 08/20 DVT ppx: SCDs; sc heparin [id number] w/ hyperglycemia (E11.65) on admission Results from last 7 daysLab Units 08/22/24 1717 08/22/24 1141 08/22/24 0435 POC GLUCOSE mg/dL 157* 342* 264* BG goal [id number] 15 U q6h high-dose ISS [employer] Pulse and groin checks per protocol Code Status: Full Code Disposition: pending evals The patient has an illness or injury that has acutely impaired one or morevital organ systems. There is a high probability of imminent or life threatening deterioration in the patient's condition during this evaluation. This is the total time spent evaluating the patient, speaking with medical staff and family, interpreting studies, discussing the case with consultants and admitting teams, retrieving data and reviewing charts, documenting the visit, and performing bundled procedures required during patient management. Zheng PalenciaGY-2 | [facility] Cosigned by Bret Newsome MD at 08/22/2024 10:33 PM MANAGER WIRELESS GER WIRELESS GER WIRELESS Associated attestation - Bret Newsome MD - 08/22/2024 10:33 PM MANAGER WIRELESS I saw and evaluated the patient with the resident, participating in the butts portions of the service. I reviewed the resident's note and agree with the documented findings and plan of care. Patient with right M1 acute ischemic stroke status post thrombectomy on 08/19. 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 Thrombectomy report reviewed from 08/19 showing 35% stenosis of the right internal carotid artery by NASCET criteria. TCD obtained on 08/20 was greater than 70% stenosis of the right MCA. Etiology: Likely artery to artery embolization from right MCA intracranial atherosclerosis or right internal carotid atherosclerosis (less likely as plaque was only 35% stenosed) Plan- Follow-up carotid ultrasound results and discussed with endovascular - Continue dual antiplatelet therapy for 90 days - Speech evaluation to determine PEG tube needs * Jenna Marley, JASON - 08/21/2024 5:55 PM MANAGER WIRELESS Treatment Session Note Patient Name: Chaitanya Tena Today's Date: 08/21/2024 Preferred Language: Tanzanian Assessment & Plan Assessment: Pt able to transfer to sitting EOB, participate in sitting balance practice and perform ~5 STS attempts. Pt currently requires modA for bed mobility, max A x2 for transfers and max A x2 for pre-gait training. Plan: PT Discharge Recommendations: Inpatient rehab facility placement Subjective IRVIN Fuentes cleared pt for skilled PT intervention. Pt received supine in bed, no one visiting at b/s, pt pleasant and agreed to participate in treatment. Pt left supine in bed, pt in NAD, VSS, all needs in reach, RN notified of status/end of visit. Objective PT Last Visit PT Received On: 08/21/24 General Others Present: OT Tech Treatment Therapeutic activity: Therapeutic Activity Therapeutic Activity Time Entry: 26 Therapeutic Activity 1: Sitting balance Therapeutic Activity 2: STS attempts Bed Mobility: Bed Mobility 1: Level of Assistance 1: Substantial/Max assistance Bed Mobility To/From: Roll left/right, Sitting EOB to supine, Supine to sit on EOB Transfers: Transfers 1: Technique 1: Dependent lift Level of Assistance 1: Substantial/Max assistance, Dependent Trials/Comments 1: STS via NUCLEAR EQUIPMENT SALES ENGINEER x2, max-total A x2 Transfer To/From: Bed, [id number]/[id number] AM-PAC Basic Mobility: AM-PAC Basic Mobility Inpatient Turning in bed without bedrails: A Lot Lying on back to sitting on edge of flat bed: A Lot Bed to chair: A Lot Standing up from chair: A Lot Walk in room: Total Climbing 3-5 stairs: Total Mobility Inpatient Raw Score: 10 -HLM Goal: 4 Mobility: Highest Level of Mobility Performed (JH-HLM) -HLM Goal: 4 Goals: Encounter Goals Encounter Goals (Active) Pt will demonstrate improved postural control requiring no more than min-mod A for static sitting balance in preparation for toilet transfers. Start: 08/20/24 Expected End: 09/03/24 Complete SLCE Start: 08/20/24 Expected End: 09/03/24 Patient will complete rolling L/R with supervision in order to decrease risk for pressure injury development in supine Start: 08/20/24 Expected End: 09/03/24 Pt will transition from supine to/from sitting edge of bed with minimum assistance in order to sit EOB for ADL participation Start: 08/20/24 Expected End: 09/03/24 Patient will transfer bed to/from chair with minimum assistance and least restrictive device to increase upright tolerance and optimize cardiorespiratory function Start: 08/20/24 Expected End: 09/03/24 Patient will ambulate at least 50 feet over level surfaces with minimum assistance and least restrictive device in prep for household ambulation and community re-integrationn Start: 08/20/24 Expected End: 09/03/24 Treatment Note: If this is the last documented treatment, then it will signify discharge from acute care prior to discharge from the therapy service and will serve as the discharge summary. Jenna Marley PTA GER WIRELESS * Elana Hernandezhernando, OT - 08/21/2024 3:06 PM MANAGER WIRELESS Treatment Session Note Patient Name: Chaitanya Tena Today's Date: 08/21/2024 Preferred Language: Tanzanian Assessment & Plan Assessment: Pt is progressing with OOB mobility this session. Pt compelted 3 sit to stands and taking side steps though requires Max verbal cues for sequencing of tasks. Pt also demos sitting balance with Min-Mod A, demos a left side lean. Pt is limited by activity tolerance, balance, global strength, ADL completion, safety awareness. Pt will continue to benefit from acute OT services to address deficits. Plan: Treatment Plan/Goals Established with Patient/Caregiver: Yes OT Plan: Skilled OT OT Frequency: 3-5 times per week until discharge OT Discharge Recommendations: Inpatient rehab facility placement OT Planned Treatments: Balance training, Activities of Daily Living, Patient education, Therapeutic exercises, Therapeutic activities, Energy conservation training, Mobility training, Neuromuscular reeducation, Safety education OT Duration: Discharge Subjective Pt is lying in bed and agreeable to therapy session. Pain: Pain Assessment: David-Cano FACES (08/21/2024 9:20 AM) Objective Treatment Therapeutic Activity Therapeutic Activity Time Entry: 24 Therapeutic Activity 1: sitting balance with Min A and 10 minutes Therapeutic Activity 2: sit to stands x3 with Mod A Therapeutic Activity 3: side steps x2 with Max verbal cues for sequencing of task AM-PAC Daily Activity: Putting on and taking off regular lower body clothing: A Lot Bathing (including washing, rinsing, drying): A Lot Toileting, which includes using toilet, bedpan or urinal: A Lot Putting on and taking off regular upper body clothing: A Lot Taking care of personal grooming such as brushing teeth: A Lot Eating Meals: A Little AM-PAC Daily Activity Raw Score: 13 Patient Education: Education Documentation No documentation found. Education Comments No comments found. Goals:Encounter Goals Encounter Goals (Active) Pt will demonstrate improved postural control requiring no more than min-mod A for static sitting balance in preparation for toilet transfers. Start: 08/20/24 Expected End: 09/03/24 Pt will complete txf supine>sit and bed>chair/BSC with Mod A to participate in self care tasks. Start: 08/20/24 Expected End: 09/10/24 Pt. will demonstrate improved oculomotor control seen by laterally tracking to L side 3/5 trials sustaining attention > 10 seconds Start: 08/20/24 Expected End: 09/03/24 Patient will complete UB/LD dressing with Min A Start: 08/20/24 Expected End: 09/10/24 Complete SLCE Start: 08/20/24 Expected End: 09/03/24 Treatment Note: If this is the last documented treatment, then it will signify discharge from acute care prior to discharge from the therapy service and will serve as the discharge summary. Elana Trejo OT GER WIRELESS * Jaquelin Wilde - 08/21/2024 2:40 PM MANAGER WIRELESS Spiritual Care Subjective Max provided compassionate presence, prayer and blessing on his visit with pt. Two therapist at bedside attending to pt. GER WIRELESS * Cody Mccabe RN - 08/21/2024 12:39 PM MANAGER WIRELESS 08/21/24 1239 Patient Choice Are post-acute services requested/ordered or has service/level of care changed since prior referral? Yes Patient/decision maker was offered choice with a list of preferences and options that includes quality data? If the list included a [facility]/affiliated entity, it was disclosed. Patient/decision maker have a [place] and declined list [place] [place] CASE MANAGEMENT ROUTINE DISCHARGE PLANNING NOTE LOS: 2 days BARRIERS: stroke w/up, 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, choice [place]GE PLAN A[place] [facility] [place] B[place] YUNG: 08/23/2024 Additional Comments: Referral sent to [facility]. CM/SW will continue to follow patient for further DC planning needs. Cody Mccabe RN Case Manager [phone] GER WIRELESS * Jaquelin Wilde - 08/21/2024 11:40 AM MANAGER WIRELESS Spiritual Care Subjective [facility] Pastoral Visitor Maribel Larsen provided compassionate presence, prayer, hospitality and compassionate listening on her visit to pt. GER WIRELESS * Lupis Falcon [facility]-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 - 08/21/2024 9:20 AM MANAGER WIRELESS Images from the original note were not included. [facility] 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 DYSPHAGIA TREATMENT Patient Name: Chaitanya Tena Today's Date: 08/21/2024 [place] [address] [address] IMPRESSIONS: Dysphagia- Recommend non-oral feeding; FEES when RAVI improves Dysarthria/cognitive-linguistic deficits- Recommend post-acute 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 services RECOMMENDATIONS: Diet Recommendations: Non-oral feeding Medications: Non oral Oral care: Suction toothbrush , Every 6 hours [employer]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 will follow. Updated team via secure chat. PLAN: Treatment/Interventions: Swallow function, Instrumental Assessments (Further evaluation of cognition/communication) Frequency: 3-4 times per week GENERAL INFORMATION:Oxygenation: Room air Behavior:Cooperative Level of Consciousness: Lethargic Pain: Pain Assessment: David-Cano FACES; No pain reported Diet Prior to this Treatment: Temporary Means of Alternative Nutrition & Hydration Preferred Language: Tanzanian TREATMENT SUMMARY:Swallow Comments: Seen for ongoing evaluation of swallowing function. Demonstrated difficulty maintaining appropriate RAVI and significant dysarthria. With PO trials of ice chips, patient demonstrated difficulty maintaiing oral manipulation due to reduced RAVI. Verbal prompting was successful at faciliating oral transit. Did not present further trials given difficulty maintaining appropriate RAVI. OUTCOME MEASURES:International Dysphagia Diet Standardization Initiative - IDDSI Solids - N/A Liquids - N/A IDDSI Level - 0 GOALS:Encounter Goals Encounter Goals (Active) Complete SLCE Start: 08/20/24 Expected End: 09/03/24 LTG - Patient will improve on swallowing outcome measure Start: 08/20/24 Expected End: 09/03/24 STG - Improve airway protection Start: 08/20/24 Expected End: 09/03/24 STG - Improve mastication Start: 08/20/24 Expected End: 09/03/24 Patient Education:Education Documentation No documentation found. Education Comments No comments found. If this is the last documented treatment, then it will signify discharge from acute care prior to discharge from the therapy service and will serve as the discharge summary. Therapy discharge recommendations are made by determining the patient's prior level of function, assessing current function level and establishing rehab potential. The overall discharge plan may be affected by input from Physicians, Care Coordination, medical condition/status, family support and insurance benefits. Lupis Falcon CCC-SLP GER WIRELESS * Cody Mccabe RN - 08/21/2024 9:10 AM MANAGER WIRELESS INITIAL DISCHARGE PLANNING ASSESSMENT NOTE Obtained from: Family Marital Status: Single MPOA: To be brought to hospital by daughter Decision Maker: Patient; If unable to, children Lives with: Children Pre-hospital function: IND Services: N/A Home Health: N/A DME use at home: Other (Comment) (free style Kori) PCP/Contact Information: PCP / None Pharmacy: Verified in Facesheet Home/Address: [address] [place] [address] [place] [address]; Verified in Facesheet Health Insurance/Payer: [facility] MEDICARE ADVANTAGE Who is available to provide care if needed?/Caregiver: DaughterOrlin 05/04 care/supervision at home if needed: TBD Transportation arrangements: TBD; pt family can transport pt home if appropriate. Per VCM: "Spoke with patient's daughter Orlin. Patient is independent with his ADL's prior to hospitalization but mentioned that patient will e needing help with his ADL's upon discharge.. Living with her daughter. Patient's daughter will provide transportation upon discharge. With MPOA, advised to provide copy to the hospital.Dialysis n/a: Home Health:n/a Community Resources: n/a Preferred Pharmacy: [id number] [place], [place] - [address] ([phone]) [facility] Resources: n/a". CM concurs VCM DPA. CM will continue to follow and assist with care transition needs. LOS: 2 days BARRIERS: medical clearance DISCHARGE PLAN A: Inpatient Rehab (p choice) DISCHARGE PLAN B: H w/ HH YUNG: 08/23/2024 Cody Mccabe RN Case Manager [phone] GER WIRELESS * Zheng Red MD - 08/21/2024 7:28 AM MANAGER WIRELESS Images from the original note were not included. 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 Per daughter presenting as Life Flight code stroke for left sided weakness. Patient's LKW was 11:40 AM today when patient was getting ready to ride his bike with daughter. Around 11:45 AM today, patient started having left face drooling and becoming dysarthric, left sided upper and lower extremity weakness. In ED, no hemorrhage was seen, CTA showed Right M1 Occlusion. Patient received 22.5mg of TNK at 1:45 PM and taken for Thrombectomy. Baseline mRS is 0 - fully functional and independent. Daughter number: [phone] Stage 4 basal cell, diagnosed in November 2019. Patient received Keytruda and oral chemotherapy which was completed in 2021. At that time patient did not want any more treatment for his malignancy. In April 2024 Found to have numerous lesions on his arms s/p removal and found to be cancerous. No further testing has been done since. Interval History: 08/19 PM; noted to have poor LE pulses pre and post-operatively, left groin attempted, right radial accessed instead, right LE pulses poor pulses post-procedure, CT brain done post-procedure, no hemorrhage. 08/20: NAEON. Exam Unchanged, Vitals stable. 08/21: NAEON. Patient somnolent likely secondary to recent Seroquel administration. Past Medical History has a past medical history of Hypertension, Lung cancer (HCC), and Stroke (HCC). Surgical History has no past surgical history on file. 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 () Family History No family history on file. Social History Prior smoker (heavy smoker until ) Prior Alcoholic (off for the last 45 years) No illicit substances Allergies Patient has no known allergies. Home Medications Medications Prior to Admission Medication Sig Dispense Refill Last Dose/Taking aspirin EC 81 MG EC tablet Take 81 mg by mouth 1 time each day. metFORMIN, OSM, (Fortamet) 500 MG 24 hr tablet Take 500 mg by mouth in the evening. Take with meals.. Do not crush, chew, or split. Review of Systems Unable to evaluate given clinical examination Physical Exam Physical Exam: General: well nourished HEENT: NCAT, anicteric sclera, posterior pharynx clear, mucus membranes moist CV: regular rate, intact peripheral pulses Pulm: breathing comfortably, no wheezing, symmetric chest expansion Abd: soft, non-tender, non-distended Ext: skin clear, no rashes, no edema Neuro Exam: A&Ox1, severely dysarthric so difficult to understand knowledge and memory Language: impaired fluency, intact comprehension, naming, and repetition Speech: severely dysarthric CN: PERRL, 3 mm BL, Right gaze preference, no nystagmus, Left Eye Hemianopia, Left Facial Asymmetry, facial sensation intact; auditory acuity intact; tongue midline, palate elevates symmetrically Motor: Normal tone and bulk, no abnormal movements. AG throughout - LUE and LLU Drift to [place], normal tone, full ROM I Sensory: Intact to light touch equally on both sides Coordination: unable to do dysmetria on FTN or HTS bilaterally pre-admit mRS: Score 0: No symptoms at all. NIH STROKE SCALE SCORE ON ADMISSION 1 1a. 1a. LOC Level of Consciousness; 0-Alert 1-Drowsy 2-Stupor 3-Coma 2 1b. LOC Questions Month and age; 0-both 1-One 2-Neither 1 1c. LOC Commands Open/close eyes, Hair Dresser/release non-paretic hand; 0-Both 1-One 2-Neither 2 2. Best Gaze; 0-Normal 1-Partial 2-Forced gaze 2 3. Visual Ferro; 0-No visual loss. 1-Partial hemianopia 2-Complete 3-Bilateral 2 4. Facial Palsy; 0-None 1-Minor 2-Partial 3-Complete 2 5. Motor - R arm; 0-No drift 1-Drift 2-Some antigravity 3-No antigravity 4-No movement 2 6. Motor - R leg; 0-No drift 1-Drift 2-Some antigravity 3-No antigravity 4-No movement 7. Motor - L arm; 0-No drift 1-Drift 2-Some antigravity 3-No antigravity 4-No movement 8. Motor - L leg; 0-No drift 1-Drift 2-Some antigravity 3-No antigravity 4-No movement 9. Limb Ataxia; 0-Absent 1-1limb 2-2 limbs 10. Sensory; 0-Normal 1-Partial loss 2-Dense loss 11. Best Language; 0-Normal 1-Mild/mod 2-Severe 3-Mute 2 12. Dysarthria; 0-Normal 1-Mild/mod 2-Severe X-Untestable 1 13. Extinction and Inattention (formerly Neglect); 0-none 1-Partial 2-complete 17 TOTAL SCORE Further clinical exam documented under Impression and Plan by systems. ASSESSMENT AND PLAN Chaitanya Tena ( 1945) is a 78 year old male PMH prior ischemic stroke with no residul deficits, HTN, DM II, Lung Malignancy? (last treatment was 2 years ago) per daughter presenting as Life Flight code stroke for left sided weakness. Found to have R1 occlusion s/p TNK at 1:45 PM and EVT with TICI 2b. NEUROLOGIC R M1 Occlusion NIHSS 10-19 (R29.71) on admission Neuro Exam: MS: AAO x2, following commands, speech non-fluent, moderate dysarthria, naming intact, + Neglect on Left. CN: L pupil 3, R pupil 3 , EOMI, VFF, mild LFD Motor: RUE/RLE/LLE AG LUE drift Sensory: intact to noxious stimuli throughout Etiology: Pending (likely ICAD) TNK @ 1:45 PM 08/19 EVT TICI 2b with 1 pass Repeat CTH-No hemorrhage MRI brain - R MCA large territory infarct with mild hemorrhagic transformation - A1c 9.40, LDL 86 Emboli detection: Prelim (-) Start Atorvastatin 80 mg Continue ASA 81 Continue Plavix Will likely need DAPT for 90 days per SAMPRIS Carotid U/S PT/OT/ST FEES per ST CARDIOVASCULAR Essential hypertension (I10) on admission PAD Temp: [36.1 ?C (96.9 ?F)-37.5 ?C (99.5 ?F)] 37.5 ?C (99.5 ?F) Heart Rate: [68-112] 75 Resp: [12-29] 16 BP: (122-168)/(55-116) 137/63 Arterial Line BP 1: (105-144)/(30-82) 122/42 VS Parameters: SBP 90-140 PRN none Troponin [id number] EKG revealed Sinus Rhythm Qtc: 390 TTE negative 55% LVEF Atrial size normal, no pericardial effusion sub-optimal valvular assessment Right LE doppler 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 Complete occlusion of the left posterior tibialis artery Vascular Surgery consult PULMONARY Acute resp failure unspecified (J96.00) on admission Hx of possible lung malignancy intubated on admit- Plan for Extubation today CXR Interstitial lung opacities are noted, bilaterally may represent senescent lung changes or scarring. Superimposed atypical infection or pulmonary edema are differential diagnosis considerations. ABG Results from last 7 days Lab Units 08/20/24 0025 POC PH, ARTERIAL 7.43 POC PCO2, ARTERIAL mmHg 44 POC PO2, ARTERIAL mmHg 95 POC HCO3, ARTERIAL mMol/L 29* POC SO2, ARTERIAL (CALC) % 97.6 POC BASE EXCESS, ARTERIAL mMol/L 4* GASTROINTESTINAL Dysphagia unspecified (R13.1) on admission Nutrition: NPO GI route: NGT/Cortrak GI ppx: Pepcid q12h/BID bowel regimen: docusate, senna, miralax q12h last BM YARN DUMPER Lab Results Component Value Date ALT 10 08/19/2024 AST 16 08/19/2024 Alkaline Phosphatase 73 08/19/2024 Bilirubin Total 0.20 08/19/2024 RENAL Intake/Output Summary (Last 24 hours) at 08/21/2024 0728Last data filed at 08/21/2024 0400 Gross per 24 hour Intake -- Output 1100 ml Net -1100 ml Results from last 7 daysLab Units 08/21/24 0045 08/20/24 0025 08/20/24 0018 08/19/24 1721 08/19/24 1329 POC SODIUM, ARTERIAL mEq/L -- 129* -- < > -- SODIUM mEq/L 137 -- 136 -- 135* POC POTASSIUM, ARTERIAL mEq/L -- 4.1 -- < > -- POTASSIUM mEq/L 3.8 -- 4.4 -- 3.8 POC CHLORIDE mEq/L -- 95 -- < > -- CHLORIDE mEq/L 100 -- 98 -- 96* CO2 mEq/L 31.6* -- 28.8 -- 28.5 BUN mg/dL 14 -- 18 -- 19 CREATININE mg/dL 0.96 -- 1.00 -- 1.06 < > = values in this interval not displayed. LA 2.24-> trendICU electrolyte replacement protocol NS 50 ml/hr while NPO no lizz INFECTIOUS DISEASELeukocytosis Temp: [36.1 ?C (96.9 ?F)-37.5 ?C (99.5 ?F)] 37.5 ?C (99.5 ?F)Heart Rate: [68- 112] 75 Resp: [12-29] 16 BP: (122-168)/(55-116) 137/63 Arterial Line BP 1: (105-144)/(30-82) 122/42 Results from last 7 days Lab Units 08/21/24 0045 08/20/24 0018 08/19/24 1708 WBC 10*3/uL 10.35* 15.50* 16.62* UA negativeCOVID/FLU/RSV negative CXR-Interstitial opacities Monitor trend fever curve and WBC Procal WNL no ABX indicated HEMATOLOGIC Results from last 7 daysLab Units 08/21/24 0045 08/20/24 0018 08/19/24 1708 HEMOGLOBIN g/dL 11.5* 11.3* 12.1* PLATELETS 10*3/uL 437* 491* 519* Results from last 7 daysLab Units 08/19/24 1329 INR 0.95 PTT Seconds 37.6* TNK @ 1:45 PM 08/19Started on DAPT 08/20 DVT ppx: SCDs; sc heparin [id number] w/ hyperglycemia (E11.65) on admission Results from last 7 daysLab Units 08/21/24 0521 08/21/24 0045 08/21/24 0016 GLUCOSE mg/dL -- 283* -- POC GLUCOSE mg/dL 186* -- 289* BG goal [id number] U q6h high-dose ISS MUSCULOSKELETAL AND INTEGUMENTARY Pulse and groin checks per protocol Code Status: Full Code Disposition: pending evals The patient has an illness or injury that has acutely impaired one or morevital organ systems. There is a high probability of imminent or life threatening deterioration in the patient's condition during this evaluation. This is the total time spent evaluating the patient, speaking with medical staff and family, interpreting studies, discussing the case with consultants and admitting teams, retrieving data and reviewing charts, documenting the visit, and performing bundled procedures required during patient management. Zheng Mejía-2 | [facility] Cosigned by Chaitanya Lewis MD at 08/21/2024 8:52 PM MANAGER WIRELESS GER WIRELESS GER WIRELESS * Hernan Guidry MD - 08/20/2024 2:02 PM MANAGER WIRELESS NIH Stroke Scale Time: 2:03 PM Person Administering Scale: Hernan Guidry MD 1a Level of consciousness: 1=not alert but arousable by minor stimulation to obey, answer or respond 1b. LOC questions: 2=Performs neither task correctly 1c. LOC commands: 0=Performs both tasks correctly 2. Best Gaze: 2=forced deviation, or total gaze paresis not overcome by oculocephalic maneuver 3. Visual: 0=No visual loss 4. Facial Palsy: 2=Partial paralysis (total or near total paralysis of the lower face) 5a. Motor left arm: 0=No drift, limb holds 90 (or 45) degrees for full 10 seconds 5b. Motor right arm: 1=Drift, limb holds 90 (or 45) degrees but drifts down before full 10 seconds: does not hit bed 6a. motor left le=No drift, limb holds 90 (or 45) degrees for full 10 seconds 6b Motor right le=No drift, limb holds 90 (or 45) degrees for full 10 seconds 7. Limb Ataxia: 0=Absent 8. Sensory: 1=Mild to moderate sensory loss; patient feels pinprick is less sharp or is dull on the affected side; there is a loss of superficial pain with pinprick but patient is aware He is being touched 9. Best Language: 0=No aphasia, normal 10. Dysarthria: 2=Severe; patient speech is so slurred as to be unintelligible in the absence of or our of proportion to any dysphagia, or is mute/anarthric 11. Extinction and Inattention: 1=Visual, tactile, auditory, spatial or personal inattention or extinction to bilateral simultaneous stimulation in one of the sensory modalities 12. Distal motor function: 0=Normal Total: 12 Hernan Gonsalez MD Adult Neurology PGY-1 [facility] GER WIRELESS * Don Rivero, PT - 08/20/2024 1:56 PM MANAGER WIRELESS Physical Therapy Evaluation and Treatment Note Patient Name: Betty Alba Today's Date: 08/20/2024 Preferred Language: Tanzanian Assessment & Plan Patient somnolent on encounter but arousable to stimulation. Able to state name w/ significant dysarthria noted. Unable to state place, time or situation. Pt restless throughout session and benefits from max cues for redirection and increased time to follow commands . Pt follows approx. 25-50% of motor commands . Exam reveals TAPE SEWER ( UE>>LE), decreased left sided active ROM, decreased balance, decreased endurance, impaired postural alignment and impaired postural control. Also noted R gaze deviation and inattention to L visual field. Pt with dysarthric speech limiting verbal communication. As a result of these impairments, pt requires max A for bed mobility , transfers and lateral stepping to HOB. At baseline, pt is an independent community dwelling older adult. Pt below baseline and will benefit from intensive skilled PT services to maximize functional recovery. Assessment: Prognosis: Good Evaluation/Treatment Tolerance: Patient tolerated treatment well Medical Staff Made Aware: Yes Strengths: Support of extended family/friends Plan: Treatment Plan/Goals Established with Patient/Caregiver: Yes Treatment/Interventions: Bed mobility training, Balance training, Caregiver training, Functional activities, Gait training, Neuromuscular re-education, Transfer training, Therapeutic exercises, Posture/Body mechanics baring, Patient education, Pain management PT Plan: Skilled PT PT Frequency: 3-5 times per week until discharge PT Discharge Recommendations: Inpatient rehab facility placement Subjective " I need to pee!" Current Problem: Per Neurology H&P: Patient Chaitanya Tena ( 1945) is a 78 year old male with medical history of prior ischemic stroke with no residul deficits, HTN, DM II, Lung Malignancy? (last treatment was 2 years ago) per daughter presenting as Life Flight code stroke for left sided weakness. Patient's LKW was 11:40 AM today when patient was getting ready to ride his bike with daughter. Around 11:45 AM today, patient started having left face drooling and becoming dysarthric, left sided upper and lower extremity weakness. In ED, no hemorrhage was seen, CTA showed Right M1 Occlusion. Patient received 22.5mg of TNK at 1:45 PM and taken for Thrombectomy. Baseline mRS is 0 - fully functional and independent. Pain: 0/10 Vital Signs: Patient Vitals for the past 8 hrs: BP MAP (mmHg) Pulse Resp SpO2 08/20/24 1039 -- -- 77 13 97 % 08/20/24 0820 148/55 77 77 -- 94 % 08/20/24 0600 133/60 87 76 15 94 % Home Living: Type of Home: House Lives With: Son, Daughter Home Adaptive Equipment: Cane (Son in Law reports patient does not use a cane) Home Layout: Two level, Able to live on main level with bedroom/bathroom Home Access: Level entry Bathroom Shower/Tub: Walk-in shower Bathroom Toilet: Standard Bathroom Equipment: Built-in shower seat Prior Level of Function: Level of [place]: (Independent with mobility wihtout an assistive device) Receives Help From: Family ADL Assistance: Independent Objective General Visit Information: Family/Caregiver Present: Yes (Son-in-law and Daughter) Precautions: UE Weight Bearing Status: FWB LE Weight Bearing Status: FWB Medical Precautions: Fall; Standard ; SBP <140 Cognition: Overall Cognitive Status: Impaired Behavior/Cognition: (Restless) Arousal/Alertness: Delayed responses to stimuli Orientation Level: Disoriented to place, Disoriented to time, Disoriented to situation Following Commands: Impaired Safety Judgment: Decreased awareness of need for assistance Awareness of Deficits: Decreased awareness of deficits Attention: Difficulty sustaining attention General Assessments: Activity Tolerance Activity Tolerance Endurance: Tolerates 10 - 20 min exercise with multiple rests Sitting Balance: Supports self with more than 50% effort using upper extremity, requires therapist assistance Sensation Sensation Sensation Comments: Unable to assess - pt unable to reliably follow commands Proprioception Perception Perception Inattention/Neglect: Cues to attend left visual field, Cues to maintain midline in sitting, Cues to attend to left side of body Initiation: Cues to initiate tasks Motor Planning: Cues to use objects appropriately Perseveration: Perseverates during ADLs Coordination Postural Control Postural Control Postural Control: Deficits on evaluation Balance- Sitting Static Sitting-Balance Support: Feet supported, Left upper extremity supported Level of Assistance: Partial/Mod assistance Balance- Standing Static Standing-Balance Support: Left upper extremity supported Static Standing-Level of Assistance: Partial/Mod assistance Static Standing-Comment/Number of Minutes: 1 min - pt stands with wide base of support + lean to L Functional Assessments: Bed Mobility Bed Mobility 1: Level of Assistance 1: Partial/Mod assistance Bed Mobility To/From: Roll left/right Assistive Devices And Adaptive Equipments: Head of bed elevated Bed Mobility 2: Level of Assistance 2: Substantial/Max assistance Bed Mobility To/From: Sitting EOB to supine Assistive Devices And Adaptive Equipments: Head of bed elevated Bed Mobility 3: Level of Assistance 3: Substantial/Max assistance Bed Mobility To/From: Supine to sit on EOB Assistive Devices And Adaptive Equipments: Head of bed elevated Transfers Transfers 1: Level of Assistance 1: Partial/Mod assistance Trials/Comments 1: LUE supported Transfer To/From: [id number]/[id number]-hw-[id number] Assistive Devices And Adaptive Equipments: No device Gait Gait Training Activity 1: Distance (enter in feet): 3 lateral steps to HOB Assistive Devices And Adaptive Equipments: No device ((B) NUCLEAR EQUIPMENT SALES ENGINEER -> L NUCLEAR EQUIPMENT SALES ENGINEER) Level of Assistance 1: Partial/Mod assistance, Substantial/Max assistance Gait Training Activity 1 Comment: WBOS, impaired lateral weight shift, verbal cues for task sequencing Extremity Assessments: Right Lower Extremity RLE Assessment RLE Assessment: Within Functional Limits Left Lower Extremity LLE Assessment LLE Assessment: Within Functional Limits (Weaker compared to R side . Able to move spontaneously against gravity) Overall Lower Extremity/Trunk Tone Overall Lower Extremity/Trunk Tone Left Lower Extremity: Normal Right Lower Extremity: Normal \\ Activity Tolerance: Endurance: Tolerates 10 - 20 min exercise with multiple rests Sitting Balance: Supports self with more than 50% effort using upper extremity, requires therapist assistance Cognition Overall Cognitive Status: Impaired Behavior/Cognition: (Restless) Arousal/Alertness: Delayed responses to stimuli Orientation Level: Disoriented to place, Disoriented to time, Disoriented to situation Following Commands: Impaired Safety Judgment: Decreased awareness of need for assistance Awareness of Deficits: Decreased awareness of deficits Attention: Difficulty sustaining attention Treatment Therapeutic activity: Therapeutic Activity Therapeutic Activity Time Entry: 18 RN Chris cleared patient for participation in PT session Pt received semi-fowlers in bed in NAD. All lines appreciated and managed prior to mobility ( tele, art line , supplemental O2 , NGT ) Pt transitioned from supine to sitting EOB with max A At EOB, max A for scooting anteriorly . Pt initially with posterior LOB but able to correct with time in sitting. Sitting balance improved to min A Mobility progressed to standing with max A and B NUCLEAR EQUIPMENT SALES ENGINEER Pt stood x 1 min with mod A then took 3 lateral steps to HOB w. Max A. Assist for wt shift but pt able to initiate steps Pt then returned to supine with max A and scooted to HOB Pt left in bed with HOB elevated in NAD. All lines intact and all needs in reach. VSS per monitor Family and RN present in room at end of session. AM-PAC Basic Mobility: Turning in bed without bedrails: A Lot Lying on back to sitting on edge of flat bed: A Lot Bed to chair: A Lot Standing up from chair: A Lot Walk in room: A Lot Climbing 3-5 stairs: A Lot Mobility Inpatient Raw Score: 12 JH-HLM Goal: 4 Mobility: Highest Level of Mobility Performed (JH-HLM) Sat at edge of bed Patient Education: Education Documentation Physical Therapy Plan of Care, taught by Don Rivero PT at 08/20/2024 1:53 PM. Learner: Family, Patient Readiness: Acceptance Method: Explanation Response: Verbalizes Understanding Comment: Pt with cognitive barriers to learning Education Comments No comments found. Goal: Encounter Goals Encounter Goals (Active) Patient will complete rolling L/R with supervision in order to decrease risk for pressure injury development in supine Start: 08/20/24 Expected End: 09/03/24 Pt will transition from supine to/from sitting edge of bed with minimum assistance in order to sit EOB for ADL participation Start: 08/20/24 Expected End: 09/03/24 Patient will transfer bed to/from chair with minimum assistance and least restrictive device to increase upright tolerance and optimize cardiorespiratory function Start: 08/20/24 Expected End: 09/03/24 Patient will ambulate at least 50 feet over level surfaces with minimum assistance and least restrictive device in prep for household ambulation and community re-integrationn Start: 08/20/24 Expected End: 09/03/24 Treatment Note: If this is the last documented treatment, then it will signify discharge from acute care prior to discharge from the therapy service and will serve as the discharge summary. Don Rivero PT,DPT GER WIRELESS * Hina Perry, OT - 08/20/2024 1:41 PM MANAGER WIRELESS Evaluation and Treatment Patient Name: Betty Alba Today's Date: 08/20/2024 Preferred Language: Tanzanian Assessment & Plan Patient is an 78 year old male admitted with R1 occlusion s/p TNK . Prior to admission pt (I) without use of assistive device. Pt currently below PLOF, L neglect and TAPE SEWER, following > 25% of commands. Patient completed LB dressing and toileting with total A. Tolerated > 5 mins eob in prep for ADLs with Min/Mod A for sit balance. Required max Ax2 for bed mobility and STS with BUE support. Pt to benefit from OT services to increase safety & maximize return to PLOF. Assessment: OT Assessment Results: Impaired ADL status, Impaired upper extremity strength, Impaired safe judgment during ADL, Impaired cognition, Visual deficit, Impaired fine motor control, Impaired functional mobility, Impaired gross motor control, Impaired left upper extremity Prognosis: Good Barriers to Discharge: Safety awareness Evaluation/Treatment Tolerance: Treatment limited secondary to agitation Medical Staff Made Aware: Yes Plan: Treatment Plan/Goals Established with Patient/Caregiver: Yes OT Plan: Skilled OT OT Frequency: 3-5 times per week until discharge OT Discharge Recommendations: Inpatient rehab facility placement OT Planned Treatments: Balance training, Activities of Daily Living, Patient education, Therapeutic exercises, Therapeutic activities, Energy conservation training, Mobility training, Neuromuscular reeducation, Safety education OT Duration: Discharge Subjective Current Problem: Chaitanya Tena ( 1945) is a 78 year old male PMH prior ischemic stroke with no residul deficits, HTN, DM II, Lung Malignancy? (last treatment was 2 years ago) per daughter presenting as Life Flight code stroke for left sided weakness. Found to have R1 occlusion s/p TNK at 1:45 PM and EVT with TICI 2b. Pain: Pain Assessment: David-Cano FACES (08/20/2024 11:02 AM) Objective General Visit Information: Family/Caregiver Present: Yes Others Present: PT Precautions: UE Weight Bearing Status: FWB LE Weight Bearing Status: FWB Medical Precautions: SBP 90-140 Cognition: Overall Cognitive Status: Impaired Behavior/Cognition: Distractible Arousal/Alertness: Delayed responses to stimuli Orientation Level: Disoriented to place, Disoriented to time, Disoriented to situation Following Commands: Impaired Safety Judgment: Decreased awareness of need for safety Awareness of Deficits: Not aware of deficits Attention: Difficulty sustaining attention Memory: Unable to assess Problem Solving: Difficulty solving simple problems Organization: Difficulty sequencing functional activities Executive Functions: Difficulty with initiation, Difficulty with planning, Difficulty with reasoning, Difficulty with information processing Cognitive-Linguistic Functioning Comments: Pt following >25% of 1 step commands, Home Living: Type of Home: House Lives With: Family, Daughter Home Adaptive Equipment: Cane (not in use) Home Layout: Multi-level, Able to live on main level with bedroom/bathroom Bathroom Shower/Tub: Walk-in shower Bathroom Toilet: Standard Bathroom Equipment: Built-in shower seat Prior Function: Level of [place]: Other (Comment) ((I) ADLs/transfers without use of AD per family at bedside) ADL Assistance: Independent OT General Assessments: Activity Tolerance Endurance: Endurance does not limit participation in activity Sitting Balance: Supports self with more than 50% effort using upper extremity, requires therapist assistance Vision - Complex Assessment Tracking: R eye does not track laterally, L eye does not track laterally (R gaze preference, attemps to turn head to L side with Max verbal cues to locate therapist unable to sustain > 3 secs) Perception Inattention/Neglect: Cues to maintain midline in sitting, Cues to attend left visual field Initiation: Cues to initiate tasks Motor Planning: Hand over hand to sequence tasks Perseveration: Perseverates during ADLs (Pt attempting to void once returned to bed, required max verbal cues for reminder of male purwick in place) Pt noted with increased agitation, attempting to advance BLE to eob thus required application of lap belt upon departure. Coordination Movements are Fluid and Coordinated: No Coordination and Movement Description: Appears to overhoot with RUE Hand Function Gross Grasp: Functional ( RUE intact) Coordination: Impaired Extremity Assessments: Right Upper Extremity RUE Assessment RUE Assessment: Within Functional Limits Left Upper Extremity LUE Assessment LUE Assessment: Exceptions to WFL (Unable to assess due to current cognition, possible increase of tone noted to digits) -Pt noted with no fxnl reaching attempts of LUE, likely TAPE SEWER, continue to monitor and assess as able. Treatment: Pre-Therapy Checklist: HOB elevated >30 degrees, Family/visitor(s) at bedside, and RN informed/aware Self-Care: Self Care/Home Management (ADLs) Time Entry: 10 Grooming Assistance: (deferred due to safety) LE Dressing Assistance: Dependent LE Dressing Deficit: Don/doff L sock, Don/doff R sock Toileting Assistance: Dependent Bed Mobility: Bed Mobility Bed Mobility: Yes Bed Mobility 1 Level of Assistance 1: Substantial/Max assistance Bed Mobility Comments 1: ability to assist with BLEs, decreased safety awareness/cognition Bed Mobility To/From: Supine to sit on EOB, Sitting EOB to supine Assistive Devices And Adaptive Equipments: Head of bed elevated Balance/Neuromuscular Re-education Neuromuscular Re-Education Time Entry: 13 Balance/Neuromuscular Re-Education Activity 1: eob balance Position 1: Seated Balance/Neuromuscular Re-Education Activity 2: Static standing balance Position 2: Standing Balance/Neuromuscular Re-Education Activity 3: Visual/head tracking to L side Position 3: Seated - Pt required constant redirection and tactile cues for RUE for line safety. Post-Therapy Checklist: HOB elevated >30 degrees, Restraints on/secured, Lap belt in place, Call light within reach, Family/visitor(s) at bedside, Other discipline at bedside, All lines/lead intact, Vital signs stable, and RN informed/aware AM-PAC Daily Activity: Putting on and taking off regular lower body clothing: Total Bathing (including washing, rinsing, drying): A Lot Toileting, which includes using toilet, bedpan or urinal: Total Putting on and taking off regular upper body clothing: A Lot Taking care of personal grooming such as brushing teeth: A Lot Eating Meals: A Lot AM-PAC Daily Activity Raw Score: 10 Mobility Highest Level of Mobility Performed (JH-HLM): Static standing (1 or more minutes) Patient Education: Education Documentation Cognitive Activities, taught by Hina Perry OT at 08/20/2024 1:40 PM. Learner: Family, Patient Readiness: Acceptance Method: Explanation, Demonstration Response: Needs Reinforcement Mobility Training, taught by Hina Perry OT at 08/20/2024 1:40 PM. Learner: Family, Patient Readiness: Acceptance Method: Explanation, Demonstration Response: Needs Reinforcement ADL Training, taught by Hina Perry OT at 08/20/2024 1:40 PM. Learner: Family, Patient Readiness: Acceptance Method: Explanation, Demonstration Response: Needs Reinforcement Occupational Therapy Plan of Care, taught by Hina Perry OT at 08/20/2024 1:40 PM. Learner: Family, Patient Readiness: Acceptance Method: Explanation, Demonstration Response: Needs Reinforcement Education Comments No comments found. Goals: Encounter Goals Encounter Goals (Active) Pt will demonstrate improved postural control requiring no more than min-mod A for static sitting balance in preparation for toilet transfers. Start: 08/20/24 Expected End: 09/03/24 Pt will complete txf supine>sit and bed>chair/BSC with Mod A to participate in self care tasks. Start: 08/20/24 Expected End: 09/10/24 Pt. will demonstrate improved oculomotor control seen by laterally tracking to L side 3/5 trials sustaining attention > 10 seconds Start: 08/20/24 Expected End: 09/03/24 Patient will complete UB/LD dressing with Min A Start: 08/20/24 Expected End: 09/10/24 Complete SLCE Start: 08/20/24 Expected End: 09/03/24 Treatment Note: If this is the last documented treatment, then it will signify discharge from acute care prior to discharge from the therapy service and will serve as the discharge summary. Hina Perry OT GER WIRELESS * Odalys Jauregui CCC-[employer]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 - 08/20/2024 11:54 AM MANAGER WIRELESS Images from the original note were not included. [facility] 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 CLINICAL SWALLOWING EVALUATION (CSE) Patient Name: Betty Alba Today's Date: 08/20/2024 Room: [place] [id number] CLINICAL SWALLOW EVALUATION SUMMARY: Intact swallow for puree solids/thin liquids, crushed medications in puree, 1:1 feeding assistance. FEED ONLY WHEN ALERT. May consider continuation of alternative means of nutrition/hydration (NGT) until pt is alert enough to intake adequate nutrition/hydration. RECOMMENDATIONS: Diet Recommendations: Puree solids/Thin liquids Medications: Crushed in puree with MD approval Swallow Precautions: Feed only when alert, Upright to 90 degrees, Small bites/sips Supervision Recommended: 1:1 Oral care: Regular toothbrush ST services are warranted for dysphagia management and full speech, language, cognitive assessment (SLCE) PROGNOSIS: Good PLAN: dysphagia management and full speech, language, cognitive assessment (SLCE) Frequency: 3-4 times per week GENERAL INFORMATION: Reason for Consult: Pt was referred for a clinical swallow evaluation in the setting of acute ischemic stroke Oxygenation: NC Behavior:Agitated, Confused, and Unable to follow commands Level of Consciousness: Drowsy Pain: unable to communicate Diet Prior to this Evaluation: Temporary Means of Alternative Nutrition & Hydration and NPO Preferred Language: [place]anian ORAL MOTOR EXAM: Dentition: Edentulous Face: Unable to assess Jaw: Unable to assess Lips: Unable to assess Tongue: Unable to assess Soft Palate: Unable to assess Larynx: Unable to assess Involuntary Muscular Movement: Unable to assess SWALLOW ASSESSMENT: Pt positioned upright and presented w/thin liquids via spoon, straw and cup, and puree solids. Pt requires 1:1 feeding assistance. Weak labial seal on spoon, straw and cup w/no anterior spillage. Timely oral transit w/thin liquids w/no distress exhibited. Adequate bolus formation and A-P transit w/puree solids w/no distress exhibited. Regular solids not presented 2' RAVI. Pharyngeal swallow was initiated w/o notable delay. Laryngeal movement appreciated to palpation. No coughing or choking observed. Vocal quality remained clear throughout visit. Pt w/dysarthric speech and decreased auditory comprehension resulting in inability to fully assess oral motor function. Clinical Swallow Evaluation Patient Positioning: In bed Previous History of Dysphagia?: No Inability to Follow One Step Directions?: Yes Tracheostomy Present: No Inability to Manage Their Secretions?: No Incomplete Lingual ROM?: Unable to determine/assess Incomplete Facial Symmetry (Facial Droop)?: Yes Voice Change During Swallowing Trials?: No Abnormal/Weak Volitional Cough?: Unable to determine/assess Cough/Throat Clear w/ Trial Consistency?: No Dysphonia (Quality and/or Pitch Change)?: Unable to determine/assess Motor Speech Disorder (Dysarthria/Apraxia)?: Yes Apraxia of the Swallow Suspected?: No Delayed Swallow Suspected?: No Multiple Swallows Per Bolus Suspected?: No Tongue Pumping Suspected?: No OUTCOME MEASURES: International Dysphagia Diet Standardization Initiative - IDDSI Solids - 4 - Puree Liquids - 0 - Thin IDDSI Level - 5 GOALS: Encounter Goals Encounter Goals (Active) Complete SLCE Start: 08/20/24 Expected End: 09/03/24 LTG - Patient will improve on swallowing outcome measure Start: 08/20/24 Expected End: 09/03/24 STG - Improve airway protection Start: 08/20/24 Expected End: 09/03/24 STG - Improve mastication Start: 08/20/24 Expected End: 09/03/24 EDUCATION:Education Documentation Speech-Language/Pathology Treatment Plan, taught by Odalys Jauregui CCC-AUTOCAD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 at 08/20/2024 12:38 PM. Learner: Patient Readiness: Acceptance Method: Explanation Response: Verbalizes Understanding Results of Exam, taught by LEESA Cevallos at 08/20/2024 12:38 PM. Learner: Patient Readiness: Acceptance Method: Explanation Response: Verbalizes Understanding Education CommentsNo comments found. If this is the last documented treatment, then it will signify discharge from acute care prior to discharge from the therapy service and will serve as the discharge summary. Therapy discharge recommendations are made by determining the patient's prior level of function, assessing current function level and establishing rehab potential. The overall discharge plan may be affected by input from Physicians, Care Coordination, medical condition/status, family support and insurance benefits. Odalys Jauregui CCC-SLP GER WIRELESS * Hina Peryr OT - 08/20/2024 8:49 AM MANAGER WIRELESS OT Encounter Note Patient Name: Betty Alba Today's Date: 08/20/2024 Missed Treatment Time and Reason OT eval order received, chart reviewed. OT eval attempt x2: 0849: Pt off unit 1009: Pt undergoing echo OT to follow up for eval at next available opportunity Hina Perry OT GER WIRELESS * Zheng Red MD - 08/20/2024 7:21 AM MANAGER WIRELESS Images from the original note were not included. 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 Per daughter presenting as Life Flight code stroke for left sided weakness. Patient's LKW was 11:40 AM today when patient was getting ready to ride his bike with daughter. Around 11:45 AM today, patient started having left face drooling and becoming dysarthric, left sided upper and lower extremity weakness. In ED, no hemorrhage was seen, CTA showed Right M1 Occlusion. Patient received 22.5mg of TNK at 1:45 PM and taken for Thrombectomy. Baseline mRS is 0 - fully functional and independent. Daughter number: [phone] Stage 4 basal cell, diagnosed in November 2019. Patient received Keytruda and oral chemotherapy which was completed in 2021. At that time patient did not want any more treatment for his malignancy. In April 2024 Found to have numerous lesions on his arms s/p removal and found to be cancerous. No further testing has been done since. Interval History: 12/7 PM; noted to have poor LE pulses pre and post-operatively, left groin attempted, right radial accessed instead, right LE pulses poor pulses post-procedure, CT brain done post-procedure, no hemorrhage. 08/20: NAEON. Exam Unchanged, Vitals stable. Past Medical History has a past medical history of Hypertension, Lung cancer (HCC), and Stroke (HCC). Surgical History has no past surgical history on file. 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 () Family History No family history on file. Social History Prior smoker (heavy smoker until ) Prior Alcoholic (off for the last 45 years) No illicit substances Allergies Patient has no known allergies. Home Medications Medications Prior to Admission Medication Sig Dispense Refill Last Dose/Taking aspirin EC 81 MG EC tablet Take 81 mg by mouth 1 time each day. metFORMIN, OSM, (Fortamet) 500 MG 24 hr tablet Take 500 mg by mouth in the evening. Take with meals.. Do not crush, chew, or split. Review of Systems Unable to evaluate given clinical examination Physical Exam Physical Exam: General: well nourished HEENT: NCAT, anicteric sclera, posterior pharynx clear, mucus membranes moist CV: regular rate, intact peripheral pulses Pulm: breathing comfortably, no wheezing, symmetric chest expansion Abd: soft, non-tender, non-distended Ext: skin clear, no rashes, no edema Neuro Exam: A&Ox1, severely dysarthric so difficult to understand knowledge and memory Language: intact fluency, comprehension, naming, and repetition Speech: severely dysarthria CN: PERRL, 3 mm BL, Right gaze preference, no nystagmus, Left Eye Hemianopia, Left Facial Asymmetry, facial sensation intact; auditory acuity intact; tongue midline, palate elevates symmetrically Motor: Normal tone and bulk, no abnormal movements. AG throughout - LUE and LLU Drift to [place], normal tone, full ROM I Sensory: Intact to light touch equally on both sides Coordination: unable to do dysmetria on FTN or HTS bilaterally pre-admit mRS: Score 0: No symptoms at all. NIH STROKE SCALE SCORE ON ADMISSION 1 1a. 1a. LOC Level of Consciousness; 0-Alert 1-Drowsy 2-Stupor 3-Coma 2 1b. LOC Questions Month and age; 0-both 1-One 2-Neither 1 1c. LOC Commands Open/close eyes, Hair Dresser/release non-paretic hand; 0-Both 1-One 2-Neither 2 2. Best Gaze; 0-Normal 1-Partial 2-Forced gaze 2 3. Visual Ferro; 0-No visual loss. 1-Partial hemianopia 2-Complete 3-Bilateral 2 4. Facial Palsy; 0-None 1-Minor 2-Partial 3-Complete 2 5. Motor - R arm; 0-No drift 1-Drift 2-Some antigravity 3-No antigravity 4-No movement 2 6. Motor - R leg; 0-No drift 1-Drift 2-Some antigravity 3-No antigravity 4-No movement 7. Motor - L arm; 0-No drift 1-Drift 2-Some antigravity 3-No antigravity 4-No movement 8. Motor - L leg; 0-No drift 1-Drift 2-Some antigravity 3-No antigravity 4-No movement 9. Limb Ataxia; 0-Absent 1-1limb 2-2 limbs 10. Sensory; 0-Normal 1-Partial loss 2-Dense loss 11. Best Language; 0-Normal 1-Mild/mod 2-Severe 3-Mute 2 12. Dysarthria; 0-Normal 1-Mild/mod 2-Severe X-Untestable 1 13. Extinction and Inattention (formerly Neglect); 0-none 1-Partial 2-complete 17 TOTAL SCORE Further clinical exam documented under Impression and Plan by systems. ASSESSMENT AND PLAN Chaitanya Tena ( 1945) is a 78 year old male PMH prior ischemic stroke with no residul deficits, HTN, DM II, Lung Malignancy? (last treatment was 2 years ago) per daughter presenting as Life Flight code stroke for left sided weakness. Found to have R1 occlusion s/p TNK at 1:45 PM and EVT with TICI 2b. NEUROLOGIC R M1 Occlusion NIHSS 10-19 (R29.71) on admission Neuro Exam: MS: AAO x2, following commands, speech non-fluent, moderate dysarthria, naming intact, + Neglect on Left. CN: L pupil 3, R pupil 3 , EOMI, VFF, mild LFD Motor: RUE/RLE/LLE AG LUE drift Sensory: intact to noxious stimuli throughout Etiology: Pending (likely ICAD) TNK @ 1:45 PM 08/19 EVT TICI 2b with 1 pass Repeat CTH-No hemorrhage MRI brain - R MCA large territory infarct with mild hemorrhagic transformation - A1c 9.40, lipid panel 86 Start Atorvastatin 80 mg Hold Aspirin until 1:45 PM 08/20 Will likely need [facility] pressure control per Neuro-Endovascular Team TCD with emboli detection TTE PT/OT/ST 24hr NIHSS - 08/20/2024 at 1:45 PM CARDIOVASCULAR Essential hypertension (I10) on admission Temp: [34.6 ?C (94.3 ?F)-37 ?C (98.6 ?F)] 36 ?C (96.8 ?F) Heart Rate: [73-105] 77 Resp: [10-43] 12 BP: (126-169)/(57-94) 131/58 Arterial Line BP 1: (94-231)/(40-99) 128/44 FiO2 (%): [40 %-100 %] 40 % VS Parameters: SBP 90-140 PRN hydralazine, labetalol Cardene gtt Troponin 173 EKG revealed Sinus Rhythm Qtc: 390 TTE ordered PULMONARY Acute resp failure unspecified (J96.00) on admission Hx of possible lung malignancy intubated on admit- Plan for Extubation today CXR Interstitial lung opacities are noted, bilaterally may represent senescent lung changes or scarring. Superimposed atypical infection or pulmonary edema are differential diagnosis considerations. ABG Results from last 7 days Lab Units 08/20/24 0025 POC PH, ARTERIAL 7.43 POC PCO2, ARTERIAL mmHg 44 POC PO2, ARTERIAL mmHg 95 POC HCO3, ARTERIAL mMol/L 29* POC SO2, ARTERIAL (CALC) % 97.6 POC BASE EXCESS, ARTERIAL mMol/L 4* GASTROINTESTINAL Dysphagia unspecified (R13.1) on admission Nutrition: NPO GI route: NGT/Cortrak GI ppx: Pepcid q12h/BID bowel regimen: docusate, senna, miralax q12h last BM YARN DUMPER Lab Results Component Value Date ALT 10 08/19/2024 AST 16 08/19/2024 Alkaline Phosphatase 73 08/19/2024 Bilirubin Total 0.20 08/19/2024 RENAL Intake/Output Summary (Last 24 hours) at 08/20/2024 0722Last data filed at 08/20/2024 0500 Gross per 24 hour Intake 1388.28 ml Output 200 ml Net 1188.28 ml Results from last 7 daysLab Units 08/20/24 0025 08/20/24 0018 08/19/24 1721 08/19/24 1329 POC SODIUM, ARTERIAL mEq/L 129* -- 131* -- SODIUM mEq/L -- 136 -- 135* POC POTASSIUM, ARTERIAL mEq/L 4.1 -- 4.1 -- POTASSIUM mEq/L -- 4.4 -- 3.8 POC CHLORIDE mEq/L 95 -- 97 -- CHLORIDE mEq/L -- 98 -- 96* CO2 mEq/L -- 28.8 -- 28.5 BUN mg/dL -- 18 -- 19 CREATININE mg/dL -- 1.00 -- 1.06 LA 2.24-> trendICU electrolyte replacement protocol NS 50 ml/hr while NPO no zamudio INFECTIOUS DISEASELeukocytosis Temp: [34.6 ?C (94.3 ?F)-37 ?C (98.6 ?F)] 36 ?C (96.8 ?F)Heart Rate: [73-105] 77 Resp: [10-43] 12 BP: (126-169)/(57-94) 131/58 Arterial Line BP 1: (94-231)/(40-99) 128/44 FiO2 (%): [40 %-100 %] 40 % Results from last 7 days Lab Units 08/20/24 0018 08/19/24 1708 08/19/24 1329 WBC 10*3/uL 15.50* 16.62* 12.92 UA negativeCOVID/FLU/RSV negative CXR-Interstitial opacities Monitor trend fever curve and WBC Procal WNL no ABX indicated HEMATOLOGIC Results from last 7 daysLab Units 08/20/24 0018 08/19/24 1708 08/19/24 1329 HEMOGLOBIN g/dL 11.3* 12.1* 12.7 PLATELETS 10*3/uL 491* 519* 518 Results from last 7 daysLab Units 08/19/24 1329 INR 0.95 PTT Seconds 37.6* TNK @ 1:45 PM 08/19Plan for DAPT (ASA to restart 1:45 PM 08/20) DVT ppx: SCDs; sc heparin held until 1:45 PM 08/20 Right LE doppler [id number] w/ hyperglycemia (E11.65) on admission Results from last 7 daysLab Units 08/20/24 0428 08/20/24 0027 08/20/24 0025 POC GLUCOSE, ARTERIAL mg/dL -- -- 221* POC GLUCOSE mg/dL 164* 222* -- BG goal [id number] ISS MUSCULOSKELETAL AND INTEGUMENTARY Pulse and groin checks per protocol Code Status: Full Code Disposition: pending evals The patient has an illness or injury that has acutely impaired one or morevital organ systems. There is a high probability of imminent or life threatening deterioration in the patient's condition during this evaluation. This is the total time spent evaluating the patient, speaking with medical staff and family, interpreting studies, discussing the case with consultants and admitting teams, retrieving data and reviewing charts, documenting the visit, and performing bundled procedures required during patient management. Zheng PalenciaGY-2 | [facility] Cosigned by Chaitanya Lewis MD at 08/20/2024 7:10 PM MANAGER WIRELESS GER WIRELESS GER WIRELESS GER WIRELESS * Ana Caruso MD - 08/20/2024 6:12 AM MANAGER WIRELESS Neurocritical Care Consultation Note History Of Present Illness Betty Alba, 89 y.o. male with PMH of CVA without deficits, HTN, DM, possible lung cancer, who presented 08/19/2024 presented with TAPE SEWER. LKW 11:40AM, right before he went to ride a bike with his daughter. 11:45AM he noted to have L sided weakness with left facial drooling. In ED, he was hypertensive, CTA revealed R M1 occlusion. He received TNK at 13:45 and was taken for thrombectomy. He was TICI 2b after one pass. Presented to NSICU intubated, hypertensive, requiring nicardipine drip. He was reversed with sugammadex. Started to move R side spontaneously antigravity, initially not following commands and anisacoria with L 4mm and R 2mm. Exam changed to following commands and pupil size L 3mm and R 2mm, reactive. Interval Events: 08/19: admitted to NSICU. 08/19 PM; noted to have poor LE pulses pre and post-operatively, left groin attempted, right radial accessed instead, right LE pulses poor pulses post-procedure, CT brain done post-procedure, no hemorrhage 08/20: extubated overnight, neurologically improved. Taken for MRI this AM. Past Medical History has a past medical history of Hypertension, Lung cancer (HCC), and Stroke (HCC). Surgical History has no past surgical history on file. Family History No family history on file. Social History Allergies Patient has no known allergies. Home MedicationsMedications Prior to Admission Medication Sig Dispense Refill Last Dose/Taking aspirin EC 81 MG EC tablet Take 81 mg by mouth 1 time each day. metFORMIN, OSM, (Fortamet) 500 MG 24 hr tablet Take 500 mg by mouth in the evening. Take with meals.. Do not crush, chew, or split. Review of SystemsUnable to evaluate given clinical examination ASSESSMENT AND PLAN Betty Alba, 89 y.o. male HTN, DM, possible lung cancer, CVA without deficits, who presented on 08/19 with TAPE SEWER, found to have R M1. 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 s/p TNK at 13:45 s/p IAT with TICI score: 2b with 1 pass(es) UDS negative, EtOH <0.05 Stroke Etiology: likely ICAD 24-hour post TNK CTH 08/20 1400 MRI brain w right mca stroke, min ht on swi Stroke work-up ordered (LDL, A1c, trop, EKG, TTE) Recommend DAPT of aspirin 81mg and Plavix 75mg daily for 21 day, then monotherapy of aspirin 81mg daily thereafter. LDL goal <70. Start atorvastatin 80mg at bedtime. PT/OT/AUTOCAD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 as indicated CARDIOVASCULAR Essential hypertension (I10) on admission, Hypertension with emergency (I16.1) on admission CV Exam: RRRTemp: [34.6 ?C (94.3 ?F)-37 ?C (98.6 ?F)] 36 ?C (96.8 ?F) Heart Rate: [73-105] 77 Resp: [10-43] 15 BP: (126-169)/(55-94) 148/55 Arterial Line BP 1: (94-231)/(40-99) 127/40 FiO2 (%): [40 %-100 %] 40 % SBP 90 - 160 as long as neuro exam is stable, or improvingPRN hydralazine, labetalol Nicardipine drip 2.5 Trop 76 > 173EKG normal sinus rhythm, Qtc 462 TTE ordered L radial a-line (08/19)CVC indication: none PULMONARY Acute resp failure with hypoxia (J96.01) on admission H/o Possible lung mass Pulm Exam: CTAB ABGResults from last 7 days Lab Units 08/20/24 0025 POC PH, ARTERIAL 7.43 POC PCO2, ARTERIAL mmHg 44 POC PO2, ARTERIAL mmHg 95 POC HCO3, ARTERIAL mMol/L 29* POC SO2, ARTERIAL (CALC) % 97.6 POC BASE EXCESS, ARTERIAL mMol/L 4* intubated on admit, extubated /8CXR (08/19): bilateral opacities GASTROINTESTINAL Dysphagia unspecified (R13.1) on admission GI Exam: soft, non-distended, present bowl sounds Nutrition:Current Order: NPO Diet, peptamen AF GI route: NGT/Cortrak GI ppx: Pepcid q12h/BID bowel regimen: docusate, senna, miralax q12h last BM 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 Lab ResultsComponent Value Date ALT 10 08/19/2024 AST 16 08/19/2024 Alkaline Phosphatase 73 08/19/2024 Bilirubin Total 0.20 08/19/2024 RENAL Intake/Output Summary (Last 24 hours) at 08/20/2024 0941Last data filed at 08/20/2024 0600 Gross per 24 hour Intake 1400.78 ml Output 700 ml Net 700.78 ml Results from last 7 daysLab Units 08/20/24 0025 08/20/24 0018 08/19/24 1721 08/19/24 1329 POC SODIUM, ARTERIAL mEq/L 129* -- 131* -- SODIUM mEq/L -- 136 -- 135* POC POTASSIUM, ARTERIAL mEq/L 4.1 -- 4.1 -- POTASSIUM mEq/L -- 4.4 -- 3.8 POC CHLORIDE mEq/L 95 -- 97 -- CHLORIDE mEq/L -- 98 -- 96* CO2 mEq/L -- 28.8 -- 28.5 BUN mg/dL -- 18 -- 19 CREATININE mg/dL -- 1.00 -- 1.06 LA 2.24 > 0.86Na goal >135 ICU electrolyte replacement protocol External catheter INFECTIOUS DISEASE Leukocytosis, likely reactive, will trend Temp (24hrs), Av.9 ?C (96.6 ?F), Min:34.6 ?C (94.3 ?F), Max:37 ?C (98.6 ?F) Results from last 7 daysLab Units 08/20/241708/19/24 1708 08/19/24 1329 WBC 10*3/uL 15.50* 16.62* 12.92 Monitor trend fever curve and WBCCovid negative, RSW/flu negative UA negative Procal <0.05 no ABX indicated HEMATOLOGIC Peripheral arterial disease Results from last 7 daysLab Units 08/20/248 08/19/24 1708 08/19/24 1329 HEMOGLOBIN g/dL 11.3* 12.1* 12.7 PLATELETS 10*3/uL 491* 519* 518 INR -- -- 0.95 PTT Seconds -- -- 37.6* s/p TNK at 13:45hold antiplt/anticoag 24hr post-TNK ASA/Plavix after 24 hours s/p TNK DVT ppx: SCDs; hold sc heparin for 24 hours s/p TNK Right LE arterial doppler pending, right pedal pulse absent Pulse and NV checks per protocol ENDOCRINE T2DM w/o complications (E11.9) on admission Results from last 7 daysLab Units 08/20/24 0733 08/20/24 0428 08/20/24 0027 08/19/24 1721 08/19/24 1708 POC GLUCOSE, ARTERIAL -- -- -- < > -- GLUCOSE -- -- -- < > -- POC GLUCOSE mg/dL 162* 164* 222* < > -- HEMOGLOBIN A1C % -- -- -- -- 9.40* CHOLESTEROL mg/dL -- -- -- -- 149 TRIGLYCERIDES mg/dL -- -- -- -- 83 HDL CHOLESTEROL mg/dL -- -- -- -- 46.4 < > = values in this interval not displayed. BG goal [id number] ISS MUSCULOSKELETAL AND INTEGUMENTARY Skin Exam: warm, dry, intact Pulse/groin/NV checks per protocol Code Status: Full Code Disposition: keep in ICU as pt remains in critical state The patient has an illness or injury that has acutely impaired one or morevital organ systems. There is a high probability of imminent or life threatening deterioration in the patient's condition during this evaluation. This is the total time spent evaluating the patient, speaking with medical staff and family, interpreting studies, discussing the case with consultants and admitting teams, retrieving data and reviewing charts, documenting the visit, and performing bundled procedures required during patient management. Minutes Critical Care Time35 Day MD 10 Day MOLLY - schwartz Day Total Night MDNight MOLLY - Night Total 45 TOTAL of Critical Care Time spent [facility] Neurocritical Care ICU [facility] Team ICU Ph #[id number] signed by Ana Caruso MD at 08/20/2024 9:44 AM MANAGER WIRELESS * Ellie Ricks Jr., MD - 08/20/2024 12:20 AM MANAGER WIRELESS Brief updated exam: Intubated, opens eyes to voice, following commands (thumbs up, two fingers) on the right side Right gaze preference, able to cross midline RUE/RLE AG with no drift LUE minimal movement to pain, LLE withdrawing from pain GER WIRELESS * Maame Patel MD - 08/19/2024 10:30 PM MANAGER WIRELESS Neurocritical Care Consultation Note History Of Present Illness Betty Alba, 89 y.o. male with PMH of CVA without deficits, HTN, DM, possible lung cancer, who presented 08/19/2024 presented with TAPE SEWER. LKW 11:40AM, right before he went to ride a bike with his daughter. 11:45AM he noted to have L sided weakness with left facial drooling. In ED, he was hypertensive, CTA revealed R M1 occlusion. He received TNK at 13:45 and was taken for thrombectomy. He was TICI 2b after one pass. Presented to NSICU intubated, hypertensive, requiring nicardipine drip. He was reversed with sugammadex. Started to move R side spontaneously antigravity, initially not following commands and anisacoria with L 4mm and R 2mm. Exam changed to following commands and pupil size L 3mm and R 2mm, reactive. Interval Events: 08/19: admitted to NSICU. 08/19 PM; noted to have poor LE pulses pre and post-operatively, left groin attempted, right radial accessed instead, right LE pulses poor pulses post-procedure, CT brain done post-procedure, no hemorrhage Past Medical History has a past medical history of Hypertension, Lung cancer (HCC), and Stroke (HCC). Surgical History has no past surgical history on file. Family History No family history on file. Social History Allergies Patient has no known allergies. Home MedicationsMedications Prior to Admission Medication Sig Dispense Refill Last Dose/Taking aspirin EC 81 MG EC tablet Take 81 mg by mouth 1 time each day. metFORMIN, OSM, (Fortamet) 500 MG 24 hr tablet Take 500 mg by mouth in the evening. Take with meals.. Do not crush, chew, or split. Review of SystemsUnable to evaluate given clinical examination Physical Exam pre-admit mRS: Score 0: No symptoms at all. NIH STROKE SCALE SCORE ON ADMISSION1 1a. 1a. LOC Level of Consciousness; 0-Alert 1-Drowsy 2-Stupor 3-Coma 1b. LOC Questions Month and age; 0-both 1-One 2-Neither 1c. LOC Commands Open/close eyes, Hair Dresser/release non-paretic hand; 0-Both 1-One 2-Neither 1 2. Best Gaze; 0-Normal 1-Partial 2-Forced gaze 2 3. Visual Ferro; 0-No visual loss. 1-Partial hemianopia 2-Complete 3-Bilateral 1 4. Facial Palsy; 0-None 1-Minor 2-Partial 3-Complete 1 5. Motor - R arm; 0-No drift 1-Drift 2-Some antigravity 3-No antigravity 4-No movement 2 6. Motor - R leg; 0-No drift 1-Drift 2-Some antigravity 3-No antigravity 4-No movement 4 7. Motor - L arm; 0-No drift 1-Drift 2-Some antigravity 3-No antigravity 4-No movement 3 8. Motor - L leg; 0-No drift 1-Drift 2-Some antigravity 3-No antigravity 4-No movement 9. Limb Ataxia; 0-Absent 1-1limb 2-2 limbsScore 1: No significant disability despite symptoms; able to carry out all usual duties and activities 10. Sensory; 0-Normal 1-Partial loss 2-Dense loss 11. Best Language; 0-Normal 1-Mild/mod 2-Severe 3-Mute 12. Dysarthria; 0-Normal 1-Mild/mod 2-Severe X-Untestable 13. Extinction and Inattention (formerly Neglect); 0-none 1-Partial 2-complete 15 TOTAL SCORE ACUTE STROKE BENCHMARKS:TIME OF STROKE TEAM ACTIVATION TIME OF STROKE TEAM EVALUATION TIME PT LAST SEEN NORMAL TIME HEAD CT REVIEWED (if TNK given) IV TNKase DECISION TIME IV TNKase ADMINISTRATION TIME (time and dose) IF NOT A CANDIDATE FOR IV TNKase, WHY? 13:45 TIME IR PHYSICIAN NOTIFIED IF NOT IAT CANDIDATE, WHY? TICI 2b DELAYS IN THIS PROCESS Further clinical exam documented under Impression and Plan by systems. ASSESSMENT AND PLAN Betty Alba, 89 y.o. male HTN, DM, possible lung cancer, CVA without deficits, who presented on 08/19 with TAPE SEWER, found to have R M1. 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 LDL goal <70. Start atorvastatin 80mg at bedtime. Sedation of precedex for RASS goal 0 to -1, wean to dc fent drip to wake him up for sbt and possible extubation PT/OT/AUTOCAD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 as indicated CARDIOVASCULAR Essential hypertension (I10) on admission, Hypertension with emergency (I16.1) on admission CV Exam: RRRTemp: [34.6 ?C (94.3 ?F)-37 ?C (98.6 ?F)] 35.8 ?C (96.5 ?F) Heart Rate: [77-105] 85 Resp: [16-43] 16 BP: (126-162)/(57-94) 126/61 Arterial Line BP 1: (94-231)/(40-99) 134/67 FiO2 (%): [50 %-100 %] 50 % SBP 90 - 140 as long as neuro exam is stable, or improvingPRN hydralazine, labetalol Nicardipine drip Trop orderedEKG normal sinus rhythm, Qtc 462 TTE ordered L radial a-line (08/19)CVC indication: none PULMONARY Acute resp failure with hypoxia (J96.01) on admission H/o Possible lung mass Pulm Exam: CTAB ABGResults from last 7 days Lab Units 08/19/24 1721 POC PH, ARTERIAL 7.41 POC PCO2, ARTERIAL mmHg 43 POC PO2, ARTERIAL mmHg 383 POC HCO3, ARTERIAL mMol/L 27* POC SO2, ARTERIAL (CALC) % 100.0 POC BASE EXCESS, ARTERIAL mMol/L 2 FiO2 (%): [50 %-100 %] 50 %S RR: [16] 16 S VT: [370 mL-500 mL] 370 mL PEEP/CPAP (cm H2O): [6 cm H2O] 6 cm H2O MAP (cm H2O): [7.2-12] 10 intubated on admit, wean to sbt and possible extubation by tomorrow amVent Settings: FiO2 (%): [50 %-100 %] 50 % S RR: [16] 16 S VT: [370 mL-500 mL] 370 mL PEEP/CPAP (cm H2O): [6 cm H2O] 6 cm H2O MAP (cm H2O): [7.2-12] 10 CXR orderedVAP bundle GASTROINTESTINAL Dysphagia unspecified (R13.1) on admission GI Exam: soft, non-distended, present bowl sounds Nutrition:Current Order: NPO Diet GI route: NGT/Cortrak GI ppx: Pepcid q12h/BID bowel regimen: docusate, senna, miralax q12h last BM [facility] Lab ResultsComponent Value Date ALT 10 08/19/2024 AST 16 08/19/2024 Alkaline Phosphatase 73 08/19/2024 Bilirubin Total 0.20 08/19/2024 RENAL Intake/Output Summary (Last 24 hours) at 08/19/2024 2230Last data filed at 08/19/2024 2157 Gross per 24 hour Intake 914.75 ml Output -- Net 914.75 ml Results from last 7 daysLab Units 08/19/24 1721 08/19/24 1329 POC SODIUM, ARTERIAL mEq/L 131* -- SODIUM mEq/L -- 135* POC POTASSIUM, ARTERIAL mEq/L 4.1 -- POTASSIUM mEq/L -- 3.8 POC CHLORIDE mEq/L 97 -- CHLORIDE mEq/L -- 96* CO2 mEq/L -- 28.5 BUN mg/dL -- 19 CREATININE mg/dL -- 1.06 LA high, repeat and trendNa goal >135 ICU electrolyte replacement protocol NS 50 ml/hr while NPO no zamudio INFECTIOUS DISEASE Leukocytosis, likely reactive, will trend Temp (24hrs), Av.8 ?C (96.5 ?F), Min:34.6 ?C (94.3 ?F), Max:37 ?C (98.6 ?F) Results from last 7 daysLab Units 08/19/24170708/19/24 1329 WBC 10*3/uL 16.62* 12.92 Monitor trend fever curve and WBC, check Procalno ABX indicated HEMATOLOGIC Results from last 7 daysLab Units 08/19/24170708/19/24 1329 HEMOGLOBIN g/dL 12.1* 12.7 PLATELETS 10*3/uL 519* 518 INR -- 0.95 PTT Seconds -- 37.6* s/p TNK at 13:45hold antiplt/anticoag 24hr post-TNK ASA/Plavix after 24 hours s/p TNK DVT ppx: SCDs; hold sc heparin for 24 hours s/p TNK Right LE arterial doppler Pulse and NV checks per protocol ENDOCRINE T2DM w/o complications (E11.9) on admission Results from last 7 daysLab Units 08/19/24200708/19/24172008/19/24170708/19/24 1329 POC GLUCOSE, ARTERIAL mg/dL -- 175* -- -- GLUCOSE mg/dL -- -- -- 163* POC GLUCOSE mg/dL 191* -- -- -- HEMOGLOBIN A1C % -- -- 9.40* -- CHOLESTEROL mg/dL -- -- 149 -- TRIGLYCERIDES mg/dL -- -- 83 -- HDL CHOLESTEROL mg/dL -- -- 46.4 -- BG goal [id number] ISS MUSCULOSKELETAL AND INTEGUMENTARY Skin Exam: warm, dry, intact Pulse/groin/NV checks per protocol Code Status: Full Code Disposition: keep in ICU as pt remains in critical state The patient has an illness or injury that has acutely impaired one or morevital organ systems. There is a high probability of imminent or life threatening deterioration in the patient's condition during this evaluation. This is the total time spent evaluating the patient, speaking with medical staff and family, interpreting studies, discussing the case with consultants and admitting teams, retrieving data and reviewing charts, documenting the visit, and performing bundled procedures required during patient management. Minutes Critical Care TimeDay MD Day MOLLY - Day Total 45 Night MD30 Night MOLLY - 75 Night Total 75 TOTAL of Critical Care Time spent [facility] Neurocritical Care ICU [facility] Ph #[id number] signed by Maame Patel MD at 08/19/2024 10:[address] [facility] [place], [place]2024-12-24 17:06:17Pending Results Scheduled Orders Name Type Priority Associated Diagnoses Order Schedule Basic Metabolic Panel Lab Routine Morning draw (La b) for 4 Weeks starting 08/20/2024 until 09/16/2024, 17 completed Complete Blood Count w/Diff and Platelet Lab Routine Morning draw (La b) for 4 Weeks starting 08/20/2024 until 09/16/2024, 17 completed Magnesium Level Lab Add-On Every Mon /Wed/Fri (Lab) for 4 Weeks starting 08/21/2024 until 09/15/2024, 7 completed Calcium Level Ionized Whole Blood Lab Routine Morning draw (Lab) for 4 Weeks starting 08/20/2024 until 09/16/2024, 17 completed Phosphorus Level Lab Add-On Every Mo /Wed/Wed (Lab) for 4 Weeks starting 08/21/2024 until 09/15/2024, 7 completed POCT glucose meter docked device Point of Care Testing - Docked Device Routine Every 4 hours (Lab) for 30 Days starting 08/19/2024 until 09/18/2024, 70 completed POCT Glucose Point of Care Testing - Docked Device Routine Every 6 hours (Lab) for 30 Days starting 08/20/2024 until 09/19/2024, 44 completed POCT Glucose Point of Care Testing - Docked Device Routine Every 15 minutes as needed until discontinued starting 08/20/2024 UA with culture if indicated Lab Routine Once (Lab) for 1 Occurrences starting 08/23/2024 until 08/23/2024 Respiratory Culture w/Gram Stain Microbiology Routine Once (Lab) for 1 Occurrences starting 08/23/2024 until 08/23/2024 POCT Blood Glucose Point of Care Testing Routine Once (Lab) for 1 Occurrences starting 08/24/2024 until 08/24/2024 OUTSIDE IMAGING SCAN Imaging Once for 1 Occurrences starting 08/31/2024 until 08/31/2024 POCT Glucose Point of Care Testing - Docked Device Routine 3 times daily before meals (Lab) for 30 Days starting 09/05/2024 until 10/04/2024 Scheduled Referrals Name Type Priority Associated Diagnoses Orde r Schedule Ambulatory referral to Vascular Surgery Outpatient Referral Routine Peripheral vascular disease (HCC) Expected: 09/03/2024 (Approximate), Expires: 09/03/2025 Ambulatory referral to Neurology Outpatient Referral Routine Acute ischemic stroke (HCC) Cerebrovascular accident (CVA), unspecified mechanism (HCC) Expected: 09/05/2024 (Approximate), Expires: 09/02/2025 Health Maintenance Due Date Last Done Comments Medicare Annual Wellness (AWV) 1945 Annual Physical 1946 Diabetes: Foot Exam 1953 Diabetes: Retinopathy Screening 1953 DTaP/Tdap/Td Vaccines (1 - Tdap) 1962 Diabetes: Urine Protein Screening 1962 Zoster Vaccines (1 of 2) 1993 Pneumococcal Vaccine: 65+ Years (2 of 2 - PPSV23 or PCV20) 06/02/2016 04/07/2016 Respiratory Syncytial Virus (RSV) or >=60 (1 - 1-dose 75+ series) 2018 Influenza Vaccine (#1) 2024 0, 07/04/2020, 06/13/2019, Additional history exists Diabetes: Hemoglobin A1C 11/17/2024 024, 02/18/2023, 10/20/2022, Additional history exists Lipid Panel 08/19/2025 08/19/2024, 03/2023, 11/27/2019 HIB Vaccines Aged Out No longer eligi ble based on patient's age to complete this topic HPV Vaccines Aged Out No longer eligi ble based on patient's age to complete this topic Hepatitis A Vaccines Aged Out No long er eligible based on patient's age to complete this topic Hepatitis B Vaccines Aged Out No long er eligible based on patient's age to complete this topic IPV Vaccines Aged Out No longer eligi ble based on patient's age to complete this topic Meningococcal Vaccine Aged Out No caio johnathon eligible based on patient's age to complete this topic Rotavirus Vaccines Aged Out No longer eligible based on patient's age to complete this topic [id number] 17:06:17 [place] [id number] 17:06:17 Diagnosis Acute ischemic stroke (HCC) - Primary Unspecified cerebral artery occlusion with cerebral infarction Acute ischemic stroke (HCC) Unspecified cerebral artery occlusion with cerebral infarction Cerebrovascular accident (CV A), unspecified mechanism (HCC) Peripheral vascular disease (HCC) Unspecified peripheral vascular disease Cerebrovascular accident (CV A) (HCC) Diabetes mellitus (HCC) Type II or unspecified type diabetes mellitus without mention of complication, not stated as uncontrolled Cerebrovascular accident (CV A), unspecified mechanism (HCC) [id number] 17:06:17 [place] [id number] 15:49:37 Discharge instructions, medications and follow up appointment explained to patient and his daughter Orlin, and pt's daughter verbalized understanding.Patient to be discharged to [facility], room 334A, report given to IRVIN Conklin. Patient awaiting EMR transport between [id number] per [id number] 14:05:38 Images from the original note were not included. [id number] Polyethylene Glycol 3350 Brand Name(s): MiraLax? PEG 3350 WHY is this medicine prescribed? Polyethylene glycol 3350 is used to treat occasional constipation. Polyethylene glycol 3350 is in a class of medications called osmotic laxatives. It works by causing water to be retained with the stool. This increases the number of bowel movements and softens the stool so it is easier to pass. HOW should this medicine be used? Polyethylene glycol 3350 comes as a powder to be mixed with a liquid and taken by mouth. It is usually taken once a day as needed for up to 2 weeks. Follow the directions on your prescription label carefully, and ask your doctor or pharmacist to explain any part you do not understand. Take polyethylene glycol 3350 exactly as directed. Polyethylene glycol 3350 may be habit-forming. Do not take a larger dose, take it more often, or take it for a longer period of time than your doctor tells you to. It may take 2 to 4 days for polyethylene glycol 3350 to produce a bowel movement. To use the powder, follow these steps: ? If you are using polyethylene glycol 3350 from a bottle, use the measuring line on the bottle cap to measure a single dose (about 1 heaping tablespoon). If you are using polyethylene glycol 3350 packets, each packet contains a single dose. ? Pour the powder into a cup containing 8 ounces (240 milliliters) of water, juice, soda, coffee, or tea. ? Stir to dissolve the powder. ? Drink immediately. Are there OTHER USES for this medicine? This medication may be prescribed for other uses; ask your doctor or pharmacist for more information. What SPECIAL PRECAUTIONS should I follow? Before taking polyethylene glycol 3350, ? tell your doctor and pharmacist if you are allergic to polyethylene glycol or any other medications. ? tell your doctor and pharmacist what prescription and nonprescription medications, vitamins, nutritional supplements, and herbal products you are taking. ? tell your doctor if you have or have ever had a bowel obstruction (blockage in the intestine) and if you have symptoms of bowel obstruction (upset stomach, vomiting, and stomach pain or bloating). ? tell your doctor if you are , plan to become , or are breast-feeding. If you become while taking polyethylene glycol 3350, call your doctor. What SPECIAL DIETARY instructions should I follow? Eat a well-balanced diet that includes fiber-rich foods, such as unprocessed bran, whole-grain bread, and fresh fruits and vegetables. Drink plenty of fluids and exercise regularly. What should I do IF I FORGET to take a dose? This medication is usually taken as needed. What SIDE EFFECTS can this medicine cause? Polyethylene glycol 3350 may cause side effects. Tell your doctor if any of these symptoms are severe or do not go away: ? nausea ? bloating ? cramping ? gas Some side effects can be serious. The following symptoms are uncommon, but if you experience either of them, call your doctor immediately: ? diarrhea ? hives Polyethylene glycol 3350 may cause other side effects. Call your doctor if you have any unusual problems while taking this medication. If you experience a serious side effect, you or your doctor may send a report to the Food and Drug Administration's (FDA) MedWatch Adverse Event Reporting program online (https://www.fda.gov/Safety/MedWatch) or by phone ( ). What should I know about STORAGE and DISPOSAL of this medication? Keep this medication in the container it came in, tightly closed, and out of reach of children. Store it at room temperature and away from excess heat and moisture (not in the bathroom). Unneeded medications should be disposed of in special ways to ensure that pets, children, and other people cannot consume them. However, you should not flush this medication down the toilet. Instead, the best way to dispose of your medication is through a medicine take-back program. Talk to your pharmacist or contact your local garbage/recycling department to learn about take-back programs in your community. See the FDA's Safe Disposal of Medicines website (https://goo.gl/c4Rm4p) for more information if you do not have access to a take-back program. It is important to keep all medication out of sight and reach of children as many containers (such as weekly pill minders and those for eye drops, creams, patches, and inhalers) are not child-resistant and young children can open them easily. To protect young children from poisoning, always lock safety caps and immediately place the medication in a safe location -- one that is up and away and out of their sight and reach. https://www.upandaway.org What should I do in case of OVERDOSE? In case of overdose, call the poison control helpline at . Information is also available online at https://www.poisonhelp.org/help. If the victim has collapsed, had a seizure, has trouble breathing, or can't be awakened, immediately call emergency services at 911. Symptoms of overdose may include: ? diarrhea ? thirst ? confusion ? seizure What OTHER INFORMATION should I know? Keep all appointments with your doctor. Do not let anyone else take your medication. Ask your pharmacist any questions you have about refilling your prescription. It is important for you to keep a written list of all of the prescription and nonprescription (qjwf-xgy-jndpsuo) medicines you are taking, as well as any products such as vitamins, minerals, or other dietary supplements. You should bring this list with you each time you visit a doctor or if you are admitted to a hospital. It is also important information to carry with you in case of emergencies. This report on medications is for your information only, and is not considered individual patient advice. Because of the changing nature of drug information, please consult your physician or pharmacist about specific clinical use. The [employer] represents that the information provided hereunder was formulated with a reasonable standard of care, and in conformity with professional standards in the field. [employer] makes no representations or warranties, express or implied, including, but not limited to, any implied warranty of merchantability and/or fitness for a particular purpose, with respect to such information and specifically disclaims all such warranties. Users are advised that decisions regarding drug therapy are complex medical decisions requiring the independent, informed decision of an appropriate health home care provider, and the information is provided for informational purposes only. The entire monograph for a drug should be reviewed for a thorough understanding of the drug's actions, uses and side effects. The [employer] does not endorse or recommend the use of any drug. The information is not a substitute for medical care. AHFS? Patient Medication Information?. ? Copyright, 2023. [employer]?, [address], [address], [place], [place]. All Rights Reserved. Duplication for commercial use must be authorized by [facility]. Selected Revisions: November 26, 2015. AHFS? Patient Medication Information?. ? Copyright, 2023 [facility] [id number] 14:05:36 Images from the original note were not included. [id number] Senna Brand Name(s): Black Draught?, Ex-Lax?, Kaur's Castoria?, Nature's Remedy?, Perdiem Overnight Relief?, Senexon?, Senna X-Prep?, Senokot?, Correctol 50 Plus? (as a combination product containing Docusate, Sennosides), Ex-Lax Gentle Strength? (as a combination product containing Docusate, Sennosides), Gentlax S? (as a combination product containing Docusate, Sennosides), Kassie-Colace? (as a combination product containing Docusate, Sennosides), Senokot S? (as a combination product containing Docusate, Sennosides); also available generically sennosides WHY is this medicine prescribed? Senna is used on a short-term basis to treat constipation. It also is used to empty the bowels before surgery and certain medical procedures. Senna is in a class of medications called stimulant laxatives. It works by increasing activity of the intestines to cause a bowel movement. HOW should this medicine be used? Senna comes as a liquid, powder, granules, chewable pieces, and tablets to take by mouth. It is may be taken once or twice daily. Senna normally causes a bowel movement within 6 to 12 hours, so it may be taken at bedtime to produce a bowel movement the next day. Do not take senna for more than 1 week without talking to your doctor. Follow the directions on your package or prescription label carefully, and ask your doctor or pharmacist to explain any part you do not understand. Take senna exactly as directed. Frequent or continued use of senna may make you dependent on laxatives and cause your bowels to lose their normal activity. If you do not have a regular bowel movement after taking senna, do not take any more medication and talk to your doctor. If you are taking certain senna products (Ex-Lax? regular ormaximum strength tablets or Perdiem Overnight Relief), swallow the pills whole with a glass of water; do not split, chew, or crush them. Are there OTHER USES for this medicine? This medication may be prescribed for other uses; ask your doctor or pharmacist for more information. What SPECIAL PRECAUTIONS should I follow? Before taking senna, ? tell your doctor and pharmacist if you are allergic to senna, any other medications, or any of the ingredients in these senna products. Ask your pharmacist for a list of the ingredients. ? tell your doctor and pharmacist what prescription and nonprescription medications, vitamins, nutritional supplements, and herbal products you are taking or plan to take while taking senna. Your doctor may need to change the doses of your medications or monitor you carefully for side effects.. ? take certain senna products (Ex-Lax?, Perdiem Overnight Relief) at least 2 or more hours before or after taking other medications by mouth; some senna products may affect how other medications work. ? the following nonprescription product may interact with senna: mineral oil. Be sure to let your doctor and pharmacist know that you are taking this medication before you start taking senna. Do not start this medication while taking senna without discussing with your healthcare provider. ? tell your doctor if you have stomach pain, nausea, vomiting, or a sudden change in bowel movements lasting more than 2 weeks. ? tell your doctor if you are , plan to become , or are breast-feeding. If you become while taking senna, call your doctor. ? talk to your doctor about the risks and benefits of taking senna if you are 65 years of age or older. Older adults should not usually take senna products over a long period of time because they are not as safe as other medications that can be used to treat the same condition. What SPECIAL DIETARY instructions should I follow? A regular diet and exercise program is important for regular bowel function. Eat a high-fiber diet and drink plenty of liquids (eight glasses) each day as recommended by your doctor. What should I do IF I FORGET to take a dose? This medication usually is taken as needed. If your doctor has told you to take senna regularly, take the missed dose as soon as you remember it. However, if it is almost time for the next dose, skip the missed dose and continue your regular dosing schedule. Do not take a double dose to make up for a missed one. What SIDE EFFECTS can this medicine cause? Senna may cause side effects. Tell your doctor if any of these symptoms are severe or do not go away: ? brown discoloration of urine ? faintness ? stomach discomfort ? nausea ? stomach cramps Some side effects can be serious. If you experience this symptom, stop taking senna and call your doctor immediately: ? rectal bleeding Senna may cause other side effects. Call your doctor if you have any unusual problems while taking this medication. If you experience a serious side effect, you or your doctor may send a report to the Food and Drug Administration's (FDA) MedWatch Adverse Event Reporting program online (https://www.fda.gov/Safety/MedWatch) or by phone ( ). What should I know about STORAGE and DISPOSAL of this medication? Keep this medication in the container it came in, tightly closed, and out of reach of children. Store it at room temperature and away from excess heat and moisture (not in the bathroom). It is important to keep all medication out of sight and reach of children as many containers (such as weekly pill minders and those for eye drops, creams, patches, and inhalers) are not child-resistant and young children can open them easily. To protect young children from poisoning, always lock safety caps and immediately place the medication in a safe location -- one that is up and away and out of their sight and reach. https://www.[employer].org Unneeded medications should be disposed of in special ways to ensure that pets, children, and other people cannot consume them. However, you should not flush this medication down the toilet. Instead, the best way to dispose of your medication is through a medicine take-back program. Talk to your pharmacist or contact your local garbage/recycling department to learn about take-back programs in your community. See the FDA's Safe Disposal of Medicines website (https://goo.gl/c4Rm4p) for more information if you do not have access to a take-back program. What should I do in case of OVERDOSE? In case of overdose, call the poison control helpline at . Information is also available online at https://www.poisonhelp.org/help. If the victim has collapsed, had a seizure, has trouble breathing, or can't be awakened, immediately call emergency services at 911. What OTHER INFORMATION should I know? Ask your pharmacist any questions you have about senna. It is important for you to keep a written list of all of the prescription and nonprescription (bhfr-zvb-rkhddyh) medicines you are taking, as well as any products such as vitamins, minerals, or other dietary supplements. You should bring this list with you each time you visit a doctor or if you are admitted to a hospital. It is also important information to carry with you in case of emergencies. This report on medications is for your information only, and is not considered individual patient advice. Because of the changing nature of drug information, please consult your physician or pharmacist about specific clinical use. [employer] represents that the information provided hereunder was formulated with a reasonable standard of care, and in conformity with professional standards in the field. [employer] makes no representations or warranties, express or implied, including, but not limited to, any implied warranty of merchantability and/or fitness for a particular purpose, with respect to such information and specifically disclaims all such warranties. Users are advised that decisions regarding drug therapy are complex medical decisions requiring the independent, informed decision of an appropriate health home care provider, and the information is provided for informational purposes only. The entire monograph for a drug should be reviewed for a thorough understanding of the drug's actions, uses and side effects. [employer] does not endorse or recommend the use of any drug. The information is not a substitute for medical care. AHFS? Patient Medication Information?. ? Copyright, 2023. [employer]?, [address], [address], [place], [place]. All Rights Reserved. Duplication for commercial use must be authorized by [facility]. Selected Revisions: March 02, 2024. AHFS? Patient Medication Information?. ? Copyright, 2023 [facility] [place], [place]2024-12-24 14:05:23 Images from the original note were not included. [id number] Aspirin Brand Name(s): Acuprin?, Anacin? Aspirin Regimen, Ascriptin?, Aspergum?, Aspidrox?, Aspir-Mox?, Aspirtab?, Aspir-denise?, Darcie? Aspirin, Bufferin?, Buffex?, Easprin?, Ecotrin?, Empirin?, Entaprin?, Entercote?, Fasprin?, Genacote?, Gennin-FC?, Genprin?, Halfprin?, Magnaprin?, Miniprin?, Minitabs?, Ridiprin?, Sloprin?, Uni-Buff?, Uni-Tren?, Valomag?, Zorprin?, Maggie-Pamplin? (as a combination product containing Aspirin, Citric Acid, Sodium Bicarbonate), Maggie-Pamplin? Extra Strength (as a combination product containing Aspirin, Citric Acid, Sodium Bicarbonate), Maggie-Pamplin? Morning Relief (as a combination product containing Aspirin, Caffeine), Maggie-Pamplin? Plus Flu (as a combination product containing Aspirin, Chlorpheniramine, Dextromethorphan), Maggie-Pamplin? PM (as a combination product containing Aspirin, Diphenhydramine), Alor? (as a combination product containing Aspirin, Hydrocodone), Anacin? (as a combination product containing Aspirin, Caffeine), Anacin? Advanced Headache Formula (as a combination product containing Acetaminophen, Aspirin, Caffeine), Aspircaf? (as a combination product containing Aspirin, Caffeine), Axotal? (as a combination product containing Aspirin, Butalbital), Azdone? (as a combination product containing Aspirin, Hydrocodone), Darcie? Aspirin Plus Calcium (as a combination product containing Aspirin, Calcium Carbonate), Darcie? Aspirin PM (as a combination product containing Aspirin, Diphenhydramine), Darcie? Back and Body Pain (as a combination product containing Aspirin, Caffeine), BC Headache (as a combination product containing Aspirin, Caffeine, Salicylamide), BC Powder (as a combination product containing Aspirin, Caffeine, Salicylamide), Damason-P? (as a combination product containing Aspirin, Hydrocodone), Emagrin? (as a combination product containing Aspirin, Caffeine, Salicylamide), Endodan? (as a combination product containing Aspirin, Oxycodone), Equagesic? (as a combination product containing Aspirin, Meprobamate), Excedrin? (as a combination product containing Acetaminophen, Aspirin, Caffeine), Excedrin? Back & Body (as a combination product containing Acetaminophen, Aspirin), Goody's? Body Pain (as a combination product containing Acetaminophen, Aspirin), Levacet? (as a combination product containing Acetaminophen, Aspirin, Caffeine, Salicylamide), Lortab? ASA (as a combination product containing Aspirin, Hydrocodone), Micrainin? (as a combination product containing Aspirin, Meprobamate), Momentum? (as a combination product containing Aspirin, Phenyltoloxamine), Norgesic? (as a combination product containing Aspirin, Caffeine, Orphenadrine), Orphengesic? (as a combination product containing Aspirin, Caffeine, Orphenadrine), Panasal? (as a combination product containing Aspirin, Hydrocodone), Percodan? (as a combination product containing Aspirin, Oxycodone), Robaxisal? (as a combination product containing Aspirin, Methocarbamol), Roxiprin? (as a combination product containing Aspirin, Oxycodone), Saleto? (as a combination product containing Acetaminophen, Aspirin, Caffeine, Salicylamide), Soma? Compound (as a combination product containing Aspirin, Carisoprodol), Soma? Compound with Codeine (as a combination product containing Aspirin, Carisoprodol, Codeine), Supac? (as a combination product containing Acetaminophen, Aspirin, Caffeine), Synalgos-DC? (as a combination product containing Aspirin, Caffeine, Dihydrocodeine), Talwin? Compound (as a combination product containing Aspirin, Pentazocine), Vanquish? (as a combination product containing Acetaminophen, Aspirin, Caffeine); also available generically Acetylsalicylic acid, ASA WHY is this medicine prescribed? Prescription aspirin is used to relieve the symptoms of rheumatoid arthritis (arthritis caused by swelling of the lining of the joints), osteoarthritis (arthritis caused by breakdown of the lining of the joints), systemic lupus erythematosus (condition in which the immune system attacks the joints and organs and causes pain and swelling) and certain other rheumatologic conditions (conditions in which the immune system attacks parts of the body). Nonprescription aspirin is used to reduce fever and to relieve mild to moderate pain from headaches, menstrual periods, arthritis, toothaches, and muscle aches. Nonprescription aspirin is also used to prevent heart attacks in people who have had a heart attack in the past or who have angina (chest pain that occurs when the heart does not get enough oxygen). Nonprescription aspirin is also used to reduce the risk of in people who are experiencing or who have recently experienced a heart attack. Nonprescription aspirin is also used to prevent ischemic strokes (strokes that occur when a blood clot blocks the flow of blood to the brain) or mini-strokes (strokes that occur when the flow of blood to the brain is blocked for a short time) in people who have had this type of stroke or mini-stroke in the past. Aspirin will not prevent hemorrhagic strokes (strokes caused by bleeding in the brain). Aspirin is in a group of medications called salicylates. It works by stopping the production of certain natural substances that cause fever, pain, swelling, and blood clots. Aspirin is also available in combination with other medications such as antacids, pain relievers, and cough and cold medications. This monograph only includes information about the use of aspirin alone. If you are taking a combination product, read the information on the package or prescription label or ask your doctor or pharmacist for more information. HOW should this medicine be used? Prescription aspirin comes as an extended-release (long-acting) tablet. Nonprescription aspirin comes as a regular tablet, a delayed-release (releases the medication in the intestine to prevent damage to the stomach) tablet, a chewable tablet, powder, and a gum to take by mouth. Prescription aspirin is usually taken two or more times a day. Nonprescription aspirin is usually taken once a day to lower the risk of a heart attack or stroke. Nonprescription aspirin is usually taken every 4 to 6 hours as needed to treat fever or pain. Follow the directions on the package or prescription label carefully, and ask your doctor or pharmacist to explain any part you do not understand. Take aspirin exactly as directed. Do not take more or less of it or take it more often than directed by the package label or prescribed by your doctor. Swallow the extended-release tablets whole with a full glass of water. Do not break, crush, or chew them. Swallow the delayed-release tablets with a full glass of water. Chewable aspirin tablets may be chewed, crushed, or swallowed whole. Drink a full glass of water, immediately after taking these tablets. Ask a doctor before you give aspirin to your child or teenager. Aspirin may cause Rossana's syndrome (a serious condition in which fat builds up on the brain, liver, and other body organs) in children and teenagers, especially if they have a virus such as chicken pox or the flu. If you have had oral surgery or surgery to remove your tonsils in the last 7 days, talk to your doctor about which types of aspirin are safe for you. Delayed-release tablets begin to work some time after they are taken. Do not take delayed-release tablets for fever or pain that must be relieved quickly. Stop taking aspirin and call your doctor if your fever lasts longer than 3 days, if your pain lasts longer than 10 days, or if the part of your body that was painful becomes red or swollen. You may have a condition that must be treated by a doctor. Are there OTHER USES for this medicine? Aspirin is also sometimes used to treat rheumatic fever (a serious condition that may develop after a strep throat infection and may cause swelling of the heart valves) and Kawasaki disease (an illness that may cause heart problems in children). Aspirin is also sometimes used to lower the risk of blood clots in patients who have artificial heart valves or certain other heart conditions and to prevent certain complications of . What SPECIAL PRECAUTIONS should I follow? Before taking aspirin, ? tell your doctor and pharmacist if you are allergic to aspirin, other medications for pain or fever, tartrazine dye, or any other medications. ? tell your doctor and pharmacist what prescription and nonprescription medications, vitamins, nutritional supplements, and herbal products you are taking or plan to take. Be sure to mention any of the following: acetazolamide (Diamox); angiotensin-converting enzyme (LOLIS) inhibitors such as benazepril (Lotensin), captopril (Capoten), enalapril (Vasotec), fosinopril (Monopril), lisinopril (Prinivil, Zestril), moexipril (Univasc), perindopril, (Aceon), quinapril (Accupril), ramipril (Altace), and trandolapril (Mavik); anticoagulants ('blood thinners') such as warfarin (Coumadin) and heparin; beta blockers such as atenolol (Tenormin), labetalol (Normodyne), metoprolol (Lopressor, Toprol XL), nadolol (Corgard), and propranolol (Inderal); diuretics ('water pills'); medications for diabetes or arthritis; medications for gout such as probenecid and sulfinpyrazone (Anturane); methotrexate (Trexall); other nonsteroidal anti-inflammatory drugs (NSAIDs) such as naproxen (Aleve, Naprosyn); phenytoin (Dilantin); and valproic acid (Depakene, Depakote). Your doctor may need to change the doses of your medications or monitor you more carefully for side effects. ? if you are taking aspirin on a regular basis to prevent heart attack or stroke, do not take ibuprofen (Advil, Motrin) to treat pain or fever without talking to your doctor. Your doctor will probably tell you to allow some time to pass between taking your daily dose of aspirin and taking a dose of ibuprofen. ? tell your doctor if you have or have ever had asthma, frequent stuffed or runny nose, or nasal polyps (growths on the linings of the nose). If you have these conditions, there is a risk that you will have an allergic reaction to aspirin. Your doctor may tell you that you should not take aspirin. ? tell your doctor if you often have heartburn, upset stomach, or stomach pain and if you have or have ever had ulcers, anemia, bleeding problems such as hemophilia, or kidney or liver disease. ? tell your doctor if you are , you plan to become , or if you are breast-feeding. Low dose aspirin 81-mg may be taken during , but aspirin doses greater that 81 mg may harm the fetus and cause problems with delivery if it is taken around 20 weeks or later during . Do not take aspirin doses greater that 81 mg (e.g., 325 mg) around or after 20 weeks of , unless told to do so by your doctor. If you become while taking aspirin or aspirin containing medications, call your doctor. ? if you are having surgery, including dental surgery, tell the doctor or dentist that you are taking aspirin. ? if you drink three or more alcoholic drinks every day, ask your doctor if you should take aspirin or other medications for pain and fever. What SPECIAL DIETARY instructions should I follow? Unless your doctor tells you otherwise, continue your normal diet. What should I do IF I FORGET to take a dose? If your doctor has told you to take aspirin on a regular basis and you miss a dose, take the missed dose as soon as you remember it. However, if it is almost time for the next dose, skip the missed dose and continue your regular dosing schedule. Do not take a double dose to make up for a missed one. What SIDE EFFECTS can this medicine cause? Aspirin may cause side effects. Tell your doctor if any of these symptoms are severe or do not go away: ? nausea ? vomiting ? stomach pain ? heartburn Some side effects can be serious. If you experience any of the following symptoms, call your doctor immediately: ? hives ? rash ? swelling of the eyes, face, lips, tongue, or throat ? wheezing or difficulty breathing ? hoarseness ? fast heartbeat ? fast breathing ? cold, clammy skin ? ringing in the ears ? loss of hearing ? bloody vomit ? vomit that looks like coffee grounds ? bright red blood in stools ? black or tarry stools Aspirin may cause other side effects. Call your doctor if you experience any unusual problems while you are taking this medication. If you experience a serious side effect, you or your doctor may send a report to the Food and Drug Administration's (FDA) MedWatch Adverse Event Reporting program online (https://www.fda.gov/Safety/MedWatch) or by phone ( ). What should I know about STORAGE and DISPOSAL of this medication? Keep this medication in the container it came in, tightly closed, and out of reach of children. Store it at room temperature and away from excess heat and moisture (not in the bathroom). Dispose of any tablets that have a strong vinegar smell. It is important to keep all medication out of sight and reach of children as many containers (such as weekly pill minders and those for eye drops, creams, patches, and inhalers) are not child-resistant and young children can open them easily. To protect young children from poisoning, always lock safety caps and immediately place the medication in a safe location -- one that is up and away and out of their sight and reach. https://www.[facility].org Unneeded medications should be disposed of in special ways to ensure that pets, children, and other people cannot consume them. However, you should not flush this medication down the toilet. Instead, the best way to dispose of your medication is through a medicine take-back program. Talk to your pharmacist or contact your local garbage/recycling department to learn about take-back programs in your community. See the FDA's Safe Disposal of Medicines website (https://goo.gl/c4Rm4p) for more information if you do not have access to a take-back program. What should I do in case of OVERDOSE? In case of overdose, call the poison control helpline at . Information is also available online at https://www.poisonhelp.org/help. If the victim has collapsed, had a seizure, has trouble breathing, or can't be awakened, immediately call emergency services at 711. Symptoms of overdose may include: ? burning pain in the throat or stomach ? vomiting ? decreased urination ? fever ? restlessness ? irritability ? talking a lot and saying things that do not make sense ? fear or nervousness ? dizziness ? double vision ? uncontrollable shaking of a part of the body ? confusion ? abnormally excited mood ? hallucination (seeing things or hearing voices that are not there) ? seizures ? drowsiness ? loss of consciousness for a period of time What OTHER INFORMATION should I know? Keep all appointments with your doctor. If you are taking prescription aspirin, do not let anyone else take your medication. Ask your pharmacist any questions you have about refilling your prescription. It is important for you to keep a written list of all of the prescription and nonprescription ([id number]) medicines you are taking, as well as any products such as vitamins, minerals, or other dietary supplements. You should bring this list with you each time you visit a doctor or if you are admitted to a hospital. It is also important information to carry with you in case of emergencies. This report on medications is for your information only, and is not considered individual patient advice. Because of the changing nature of drug information, please consult your physician or pharmacist about specific clinical use. The [employer] represents that the information provided hereunder was formulated with a reasonable standard of care, and in conformity with professional standards in the field. [employer] makes no representations or warranties, express or implied, including, but not limited to, any implied warranty of merchantability and/or fitness for a particular purpose, with respect to such information and specifically disclaims all such warranties. Users are advised that decisions regarding drug therapy are complex medical decisions requiring the independent, informed decision of an appropriate health home care provider, and the information is provided for informational purposes only. The entire monograph for a drug should be reviewed for a thorough understanding of the drug's actions, uses and side effects. The [employer] does not endorse or recommend the use of any drug. The information is not a substitute for medical care. AHFS? Patient Medication Information?. ? Copyright, 2023. [employer]?, [address], [address], [place], [place]. All Rights Reserved. Duplication for commercial use must be authorized by [facility]. Selected Revisions: January 25, 2021. AHFS? Patient Medication Information?. ? Copyright, 2023 [facility] [place], [place]2024-12-24 14:05:16 Images from the original note were not included. [id number] Clopidogrel Brand Name(s): Plavix?; also available generically IMPORTANT WARNING: Clopidogrel must be changed to an active form in your body so that it can treat your condition. Some people do not change clopidogrel to its active form in the body as well as other people. Because the medication does not work as well in these people, they may be at a higher risk of having a heart attack or stroke. There are tests available to identify people who have trouble changing clopidogrel to an active form. Talk to your doctor about whether you should be tested. If you are found to have difficulty converting clopidogrel to its active form, your doctor may change your dose of clopidogrel or tell you not to take clopidogrel. Your doctor or pharmacist will give you the mineral resources inspector's patient information sheet (Medication Guide) when you begin treatment with clopidogrel and each time you refill your prescription. Read the information carefully and ask your doctor or pharmacist if you have any questions. You can also visit the Food and Drug Administration (FDA) website (https://www.fda.gov/Drugs/DrugSafety/ibz751609.htm) or the mineral resources inspector's website to obtain the Medication Guide. Talk to your doctor about the risks of taking clopidogrel. WHY is this medicine prescribed? Clopidogrel is used alone or with aspirin to prevent serious or life-threatening problems with the heart and blood vessels in people who have had a stroke, heart attack, or severe chest pain. This includes people who have percutaneous coronary intervention (PCI; angioplasty; a type of heart surgery) that may involve inserting coronary stents (metal tubes surgically placed in clogged blood vessels to improve blood flow) or who have coronary artery bypass grafting (CABG; a type of heart surgery). Clopidogrel is also used to prevent serious or life-threatening problems with the heart and blood vessels in people who have peripheral arterial disease (poor circulation in the blood vessels that supply blood to the legs). Clopidogrel is in a class of medications called antiplatelet medications. It works by preventing platelets (a type of blood cell) from collecting and forming clots that may cause a heart attack or stroke. HOW should this medicine be used? Clopidogrel comes as a tablet to take by mouth. It is usually taken once a day with or without food. Take clopidogrel at around the same time every day. Follow the directions on your prescription label carefully, and ask your doctor or pharmacist to explain any part you do not understand. Take clopidogrel exactly as directed. Do not take more or less of it or take it more often than prescribed by your doctor. Clopidogrel will help prevent serious problems with your heart and blood vessels only as long as you take the medication. Continue to take clopidogrel even if you feel well. Do not stop taking clopidogrel without talking to your doctor. If you stop taking clopidogrel, there is a higher risk that you may have a heart attack or stroke. If you have a stent, there is also a higher risk that you could develop a blood clot in the stent if you stop taking clopidogrel too soon. Are there OTHER USES for this medicine? Clopidogrel is also sometimes used to prevent blood clots in people with atrial fibrillation (a condition in which the heart beats irregularly). Talk to your doctor about the possible risks of using this medication for your condition. This medication may be prescribed for other uses; ask your doctor or pharmacist for more information. What SPECIAL PRECAUTIONS should I follow? Before taking clopidogrel, ? tell your doctor and pharmacist if you are allergic to clopidogrel, prasugrel (Effient), ticlopidine, any other medications, or any ingredient in clopidogrel tablets. Ask your pharmacist or check the Medication Guide for a list of the ingredients. ? tell your doctor and pharmacist what other prescription and nonprescription medications, vitamins, nutritional supplements, and herbal products you are taking or plan to take while taking clopidogrel. Your doctor may need to change the doses of your medications or monitor you carefully for side effects. . ? The following nonprescription products may interact with clopidogrel: omeprazole (Prilosec, Prilosec OTC, Zegerid); esomeprazole (Nexium); aspirin and other nonsteroidal anti-inflammatory drugs (NSAIDs) such as ibuprofen (Advil, Motrin) and naproxen (Aleve, Naprosyn). Be sure to let your doctor and pharmacist know that you are taking these medications before you start taking clopidogrel. Do not start any of these medications while taking clopidogrel without discussing with your healthcare provider. ? tell your doctor if you have bleeding ulcers (sores in the lining of the stomach or small intestine that are bleeding), bleeding in the brain, or any other condition that causes severe bleeding. Your doctor may tell you that you should not take clopidogrel. ? tell your doctor if you have recently been injured and if you have or have ever had liver or kidney disease or any condition that may cause bleeding, including stomach problems such as ulcers. ? tell your doctor if you are , plan to become , or are breast-feeding. If you become while taking clopidogrel, call your doctor. ? if you are having surgery, including dental surgery, tell the doctor or dentist that you are taking clopidogrel. Your doctor may tell you to stop taking clopidogrel at least 5 days prior to your surgery to avoid excessive bleeding during surgery. Your doctor will tell you when to start taking clopidogrel again after your surgery. ? you should know that you may bleed more easily or for a longer time than usual while you are taking clopidogrel. Be careful not to cut or hurt yourself while you are taking clopidogrel. What SPECIAL DIETARY instructions should I follow? Unless your doctor tells you otherwise, continue your normal diet. What should I do IF I FORGET to take a dose? Take the missed dose as soon as you remember it. However, if it is almost time for the next dose, skip the missed dose and continue your regular dosing schedule. Do not take a double dose to make up for a missed one. What SIDE EFFECTS can this medicine cause? Clopidogrel may cause side effects. Tell your doctor if any of these symptoms are severe or do not go away: ? excessive tiredness ? headache ? dizziness ? nausea ? vomiting ? stomach pain ? diarrhea ? nosebleed Some side effects can be serious. If you experience any of the following symptoms, call your doctor immediately: ? hives ? rash ? itching ? difficulty breathing or swallowing ? swelling of the face, throat, tongue, lips, eyes, hands, feet, ankles, or lower legs ? hoarseness ? black and tarry stools ? red blood in stools ? bloody vomit ? vomit that looks like coffee grounds ? unusual bleeding or bruising ? pink or brown urine ? slow or difficult speech ? weakness or numbness of an arm or a leg ? changes in vision ? fever ? shortness of breath ? fast heartbeat ? pale skin ? purple patches or bleeding under the skin ? confusion ? yellowing of the skin or eyes ? seizures Clopidogrel may cause other side effects. Call your doctor if you have any unusual problems while taking this medication. If you experience a serious side effect, you or your doctor may send a report to the Food and Drug Administration's (FDA) MedWatch Adverse Event Reporting program online (https://www.fda.gov/Safety/MedWatch) or by phone ( ). What should I know about STORAGE and DISPOSAL of this medication? Keep this medication in the container it came in, tightly closed, and out of reach of children. Store it at room temperature and away from excess heat and moisture (not in the bathroom). Unneeded medications should be disposed of in special ways to ensure that pets, children, and other people cannot consume them. However, you should not flush this medication down the toilet. Instead, the best way to dispose of your medication is through a medicine take-back program. Talk to your pharmacist or contact your local garbage/recycling department to learn about take-back programs in your community. See the FDA's Safe Disposal of Medicines website (https://goo.gl/c4Rm4p) for more information if you do not have access to a take-back program. It is important to keep all medication out of sight and reach of children as many containers (such as weekly pill minders and those for eye drops, creams, patches, and inhalers) are not child-resistant and young children can open them easily. To protect young children from poisoning, always lock safety caps and immediately place the medication in a safe location -- one that is up and away and out of their sight and reach. https://www.[facility].org What should I do in case of OVERDOSE? In case of overdose, call the poison control helpline at . Information is also available online at https://www.poisonhelp.org/help. If the victim has collapsed, had a seizure, has trouble breathing, or can't be awakened, immediately call emergency services at [phone]. Symptoms of overdose may include the following: ? unusual bruising or bleeding What OTHER INFORMATION should I know? Keep all appointments with your doctor. Do not let anyone else take your medication. Ask your pharmacist any questions you have about refilling your prescription. It is important for you to keep a written list of all of the prescription and nonprescription (yobn-vlk-rxgdedg) medicines you are taking, as well as any products such as vitamins, minerals, or other dietary supplements. You should bring this list with you each time you visit a doctor or if you are admitted to a hospital. It is also important information to carry with you in case of emergencies. This report on medications is for your information only, and is not considered individual patient advice. Because of the changing nature of drug information, please consult your physician or pharmacist about specific clinical use. [employer] represents that the information provided hereunder was formulated with a reasonable standard of care, and in conformity with professional standards in the field. [employer] makes no representations or warranties, express or implied, including, but not limited to, any implied warranty of merchantability and/or fitness for a particular purpose, with respect to such information and specifically disclaims all such warranties. Users are advised that decisions regarding drug therapy are complex medical decisions requiring the independent, informed decision of an appropriate health home care provider, and the information is provided for informational purposes only. The entire monograph for a drug should be reviewed for a thorough understanding of the drug's actions, uses and side effects. [employer] does not endorse or recommend the use of any drug. The information is not a substitute for medical care. AHFS? Patient Medication Information?. ? Copyright, 2023. [employer]?, [address], [address], [place], [place]. All Rights Reserved. Duplication for commercial use must be authorized by [facility]. Selected Revisions: March 02, 2024. AHFS? Patient Medication Information?. ? Copyright, 2023 [facility] [place], [place]2024-12-24 14:05:11 Images from the original note were not included. [id number] Atorvastatin Brand Name(s): Atorvaliq?, Lipitor?, Caduet? (as a combination product containing Amlodipine, Atorvastatin), Lipqozet? (as a combination product containing Atorvastatin, Ezetimibe), Liptruzet? (as a combination product containing Atorvastatin, Ezetimibe); also available generically WHY is this medicine prescribed? Atorvastatin is used together with diet, weight loss, and exercise to reduce the risk of heart attack and stroke and to decrease the chance that heart surgery will be needed in people who have heart disease or who are at risk of developing heart disease. Atorvastatin is also used to decrease the amount of fatty substances such as low-density lipoprotein (LDL) cholesterol ('bad cholesterol') and triglycerides in the blood and to increase the amount of high-density lipoprotein (HDL) cholesterol ('good cholesterol') in the blood. Atorvastatin may also be used to decrease the amount of cholesterol and other fatty substances in the blood in children and teenagers 10 to 17 years of age who have familial heterozygous hypercholesterolemia (an inherited condition in which cholesterol cannot be removed from the body normally). Atorvastatin is in a class of medications called HMG-CoA reductase inhibitors (statins). It works by slowing the production of cholesterol in the body to decrease the amount of cholesterol that may build up on the meier of the arteries and block blood flow to the heart, brain, and other parts of the body. Accumulation of cholesterol and fats along the meier of your arteries (a process known as atherosclerosis) decreases blood flow and, therefore, the oxygen supply to your heart, brain, and other parts of your body. Lowering your blood level of cholesterol and fats with atorvastatin has been shown to prevent heart disease, angina (chest pain), strokes, and heart attacks. HOW should this medicine be used? Atorvastatin comes as a tablet and suspension (liquid) to take by mouth. The tablet is usually taken once a day with or without food. The suspension is usually taken once a day on an empty stomach (at least 1 hour before or 2 hours after a meal).Take atorvastatin at around the same time every day. Follow the directions on your prescription label carefully, and ask your doctor or pharmacist to explain any part you do not understand. Take atorvastatin exactly as directed. Do not take more or less of it or take it more often than prescribed by your doctor. Your doctor may start you on a low dose of atorvastatin and gradually increase your dose, not more than once every 2 to 4 weeks. If you are taking the suspension, do not use a household spoon to measure your dose. Use a properly marked measuring device such as a medicine spoon or oral syringe. Ask your doctor or pharmacist if you need help getting or using a measuring device. Continue to take atorvastatin even if you feel well. Do not stop taking atorvastatin without talking to your doctor. Are there OTHER USES for this medicine? This medication may be prescribed for other uses; ask your doctor or pharmacist for more information. What SPECIAL PRECAUTIONS should I follow? Before taking atorvastatin, ? tell your doctor and pharmacist if you are allergic to atorvastatin, any other medications, or any of the ingredients in atorvastatin tablets and suspension. Ask your pharmacist for a list of the ingredients. ? Tell your doctor and pharmacist what prescription and nonprescription medications, vitamins, nutritional supplements, and herbal products you are taking or plan to take while taking atorvastatin. Your doctor may need to change the doses of your medications or monitor you carefully for side effects. ? The following nonprescription products may interact with atorvastatin: cimetidine (Tagamet), and niacin. Be sure to let your doctor and pharmacist know that you are taking these medications before you start taking atorvastatin. Do not start any of these medications while taking atorvastatin without discussing with your healthcare provider. ? tell your doctor if you have or ever had liver disease. Your doctor will order laboratory tests to see how well your liver is working even if you do not think you have liver disease. Your doctor will probably tell you not to take atorvastatin if you have liver disease or if the tests show you may be developing liver disease. ? tell your doctor if you drink more than 2 alcoholic beverages daily, if you are 65 years of age or older, and if you have or have ever had muscle aches or weakness, diabetes, seizures, low blood pressure, or thyroid or kidney disease. ? tell your doctor if you are or plan to become . If you become while taking atorvastatin, stop taking atorvastatin and call your doctor immediately. Atorvastatin may harm the fetus. ? tell your doctor if you are or plan to breastfeed. You should not breastfeed while you are taking this medication. ? if you are having surgery, including dental surgery, tell the doctor or dentist that you are taking atorvastatin. If you are hospitalized due to serious injury or infection, tell the doctor who treats you that you are taking atorvastatin. ? ask your doctor about the safe use of alcoholic beverages while you are taking atorvastatin. Alcohol can increase the risk of serious side effects. What SPECIAL DIETARY instructions should I follow? Eat a low-fat, low-cholesterol diet. Be sure to follow all exercise and dietary recommendations made by your doctor or dietitian. You can also visit the National Cholesterol Education Program (NCEP) website for additional dietary information at https://www.nhlbi.nih.gov/health/public/heart/chol/chol_tlc.pdf. Avoid drinking large amounts [more than 1.2 liter (approximately 1 quart) per day] of grapefruit juice while taking atorvastatin. What should I do IF I FORGET to take a dose? If you miss a dose of the tablet, skip the missed dose and continue your regular dosing schedule. Do not take a double dose to make up for a missed one. If you miss a dose of the suspension, take the missed dose as soon as you remember it. However, if it is less than 12 hours until your next scheduled dose, skip the missed dose and continue your regular dosing schedule. Do not take a double dose to make up for a missed one. What SIDE EFFECTS can this medicine cause? Atorvastatin may cause side effects. Tell your doctor if any of these symptoms are severe or do not go away: ? diarrhea ? heartburn ? gas ? joint pain ? forgetfulness or memory loss ? confusion Some side effects can be serious. The following symptoms are uncommon, but if you experience any of them, call your doctor or get emergency medical help immediately: ? muscle pain, tenderness, or weakness ? lack of energy ? fever ? chest pain ? nausea ? extreme tiredness ? weakness ? unusual bleeding or bruising ? loss of appetite ? pain in the upper right part of the stomach ? flu-like symptoms ? dark colored urine ? yellowing of the skin or eyes ? rash ? hives ? itching ? difficulty breathing or swallowing ? swelling of the face, throat, tongue, lips, eyes, hands, feet, ankles, or lower legs ? hoarseness Atorvastatin may cause other side effects. Call your doctor if you have any unusual problems while taking this medication. If you experience a serious side effect, you or your doctor may send a report to the Food and Drug Administration's (FDA) MedWatch Adverse Event Reporting program online (https://www.fda.gov/Safety/MedWatch) or by phone ( ). What should I know about STORAGE and DISPOSAL of this medication? Keep this medication in the container it came in, tightly closed, and out of reach of children. Store it at room temperature and away from excess heat and moisture (not in the bathroom). Unneeded medications should be disposed of in special ways to ensure that pets, children, and other people cannot consume them. However, you should not flush this medication down the toilet. Instead, the best way to dispose of your medication is through a medicine take-back program. Talk to your pharmacist or contact your local garbage/recycling department to learn about take-back programs in your community. See the FDA's Safe Disposal of Medicines website (https://goo.gl/c4Rm4p) for more information if you do not have access to a take-back program. It is important to keep all medication out of sight and reach of children as many containers (such as weekly pill minders and those for eye drops, creams, patches, and inhalers) are not child-resistant and young children can open them easily. To protect young children from poisoning, always lock safety caps and immediately place the medication in a safe location -- one that is up and away and out of their sight and reach. https://www.[facility].org What should I do in case of OVERDOSE? In case of overdose, call the poison control helpline at . Information is also available online at https://www.poisonhelp.org/help. If the victim has collapsed, had a seizure, has trouble breathing, or can't be awakened, immediately call emergency services at 911. What OTHER INFORMATION should I know? Keep all appointments with your doctor and the laboratory. Your doctor may order certain lab tests during your treatment , especially if you develop symptoms of liver damage. Before having any laboratory test, tell your doctor and the laboratory personnel that you are taking atorvastatin. Do not let anyone else take your medication. Ask your pharmacist any questions you have about refilling your prescription. It is important for you to keep a written list of all of the prescription and nonprescription (mmkc-hga-wipvsch) medicines you are taking, as well as any products such as vitamins, minerals, or other dietary supplements. You should bring this list with you each time you visit a doctor or if you are admitted to a hospital. It is also important information to carry with you in case of emergencies. This report on medications is for your information only, and is not considered individual patient advice. Because of the changing nature of drug information, please consult your physician or pharmacist about specific clinical use. [employer] represents that the information provided hereunder was formulated with a reasonable standard of care, and in conformity with professional standards in the field. [employer] makes no representations or warranties, express or implied, including, but not limited to, any implied warranty of merchantability and/or fitness for a particular purpose, with respect to such information and specifically disclaims all such warranties. Users are advised that decisions regarding drug therapy are complex medical decisions requiring the independent, informed decision of an appropriate health home care provider, and the information is provided for informational purposes only. The entire monograph for a drug should be reviewed for a thorough understanding of the drug's actions, uses and side effects. [employer] does not endorse or recommend the use of any drug. The information is not a substitute for medical care. AHFS? Patient Medication Information?. ? Copyright, 2023. [employer]?, [address], [address], [place], [place]. All Rights Reserved. Duplication for commercial use must be authorized by [facility]. Selected Revisions: April 01, 2024. AHFS? Patient Medication Information?. ? Copyright, 2023 [facility] 14:03:41 Images from the original note were not included. Know Your Risk Factors for Stroke - Video Understand the controllable and uncontrollable risk factors that increase your chance for having a stroke. To view the video go to this web address: [email or web address] Or, scan this QR code with your smart phone ? [facility]24-[facility] 14:03:15 Images from the original note were not included. [id number] Muscle Stiffness After Stroke After a stroke, it?s normal to notice changes in your muscles. Certain muscles might feel stiff and tight all the time?a condition called spasticity. This can make moving around and doing everyday activities a bit challenging. Spasticity can also be uncomfortable or even painful at times. This can be a frustrating condition. But there are ways to stop it from disrupting your life. Here?s what you need to know and how to treat it. Why do muscles get stiff after a stroke? A stroke can damage the nerves in your brain or spinal cord that are responsible for muscle movement. If you?re dealing with muscle stiffness, it?s not because you?re doing anything wrong. It?s because the muscle contractions are out of your control. Spasticity is a fairly common issue. It can appear days, weeks, months, or sometimes even years after a stroke. Between 25% and 43% of people will have muscle stiffness within 1 year after their stroke. It often affects the elbow, wrist, or shoulder. But it can also happen in the feet, ankles, and legs. You might feel it only in 1 muscle. Or it could affect several at once. What does muscle stiffness look like? People with spasticity have increased muscle tone. It means their muscles look and feel as if they?re always flexed and tight. While more muscle tone may sound like a good thing, the stiffness that comes with it often makes it hard to move. Your motions might start to feel jerky or robotic. And things like walking, sitting, bathing, and grabbing or holding objects aren?t as easy as before. This can interfere with everyday tasks and your ability to socialize and engage in hobbies. You might also have 1 or more of these other symptoms: ? Hands balled into fists ? Pointed or curled toes ? Arms or elbows bent ? Involuntary crossing of the legs ? Stiff joints ? A weak foot that drops, meaning you can?t lift the front of the foot In some cases, spasticity can lead to muscle spasms. These are uncontrollable, sudden muscle contractions that can be very painful. How is it diagnosed? First, your healthcare provider might check for increased muscle tone or a loss of range of motion. Another butts sign is whether a muscle resists when it?s being stretched. Sometimes more specialized tests may be needed to fully understand the condition. For instance, you may need to get an MRI. The earlier spasticity is diagnosed, the better. How is it treated? Muscle stiffness often requires long-term care. There are many different treatment options. So it?s best to talk with your healthcare provider about the approach that works for you. In some cases, a combination of treatments may be the most effective. Recommendations will vary based on your level of muscle stiffness and overall health. Treatment may include: ? Physical or occupational therapy. A physical therapist (PT) can help you stretch and exercise your muscles. Plus, they can teach you stretches to do at home. An occupational therapist (OT) can offer tips to make everyday tasks easier. ? Botox. When injected, this medicine can help relieve stiffness in the muscles. ? Oral medicines. These help relax the nerves so that they stop sending messages to the muscles to contract. ? Intrathecal baclofen therapy (ITB). For this treatment, medicine goes through a small pump that?s implanted in the body. ? Electrical stimulation (e-stim). The pulses may help improve spasticity. But there isn?t a lot of research on this method yet. ? Orthoses or braces. These can hold a muscle in its correct position and stop it from em. ? Surgery. If other treatments don?t work, you may need surgery on the affected muscle, joint, or tendon. This is often done as a last resort. What other changes may be needed? To help with day-to-day living at home?and lower your risk for falls and other accidents?consider: ? Adding a ramp ? Installing bars or railings to hold onto ? Putting a bench in the shower or bathtub ? Getting a raised toilet seat ? Using a cane, walker, or wheelchair as needed Be sure to always follow your healthcare provider?s advice after a stroke. They have the expertise and experience to guide you toward the most effective treatment. This helps ensure you have the best possible quality of life moving forward. Last Reviewed Date: 2024 00:00:00 ? [id number] [employer]. All rights reserved. This information is not intended as a substitute for professional medical care. Always follow your healthcare professional's instructions. [facility] 14:03:03 Images from the original note were not included. [id number] Discharge Instructions for Stroke You have a high risk for a stroke, or a TIA (transient ischemic attack). During a stroke, blood stops flowing to part of your brain. This can damage areas in the brain that control other parts of the body. Symptoms from a stroke depend on which part of the brain has been affected. Stroke risk factors Once you?ve had a stroke, you?re at greater risk for another one. Listed below are some other factors that can raise your risk for a stroke: ? High blood pressure ? High cholesterol ? Cigarette or cigar smoking ? Diabetes ? Carotid or other artery disease ? Atrial fibrillation, atrial flutter, or other heart disease ? Not being physically active ? Obesity ? Certain blood disorders, such as sickle cell anemia ? Drinking too much alcohol ? Abusing street drugs ? Race ? Gender ? Family history of stroke ? Diet high in salty, fried, or greasy foods Changes in daily living Doing some everyday tasks may be hard after you?ve had a stroke. But you can learn new ways to manage. In fact, doing daily activities may help you to regain muscle strength. This can help your affected arm or leg work more normally. Be patient. Give yourself time to adjust. And appreciate the progress you make. Daily activities You may be at risk of falling. Make changes to your home to help you walk more easily. A therapist will decide if you need an assistive device, such as a cane or walker, to walk safely. You may need to see an occupational therapist (OT). Or you may see a physical therapist (PT). These healthcare providers can help you to learn new ways of doing things. For example, you may need to make changes in how you bathe or dress. You may also need a speech therapist. This is someone who helps you speak normally again and be able to swallow. Tips for showering or bathing ? Test the water temperature with a hand or foot that was not affected by the stroke. ? Use grab bars, a shower seat, a handheld showerhead, and a long-handled brush. ? Use any other device as advised by your therapists. Tips for getting dressed ? Dress while sitting, starting with the affected side or limb. ? Wear shirts that pull easily over your head. Wear pants or skirts with elastic waistbands. ? Use zippers with loops attached to the pull tabs. Lifestyle changes ? Take your medicines exactly as directed. Don?t skip doses. ? Begin an exercise program. Ask your provider how to get started. Ask how much activity you should try to get every day or week. You can benefit from simple activities such as walking or gardening. ? Limit how much alcohol you drink. ? Control your cholesterol level. Follow your provider?s advice about how to do this. ? If you are a smoker, quit now. Join a stop-smoking program to improve your chances of success. Ask your provider about medicines or other methods to help you quit. ? Learn stress management methods. These can help you deal with stress in your home and work life. Diet Your healthcare provider will guide you on changes you may need to make to your diet. They may advise that you see a registered dietitian for help with changes. The changes can improve your cholesterol, blood pressure, and blood sugar. Changes may include: ? Reducing the amount of fat and cholesterol you eat ? Reducing the amount of salt (sodium) in your diet, especially if you have high blood pressure ? Eating more vegetables and fruits ? Eating more lean proteins, such as fish, poultry, and beans and peas (legumes) ? Eating less red meat and processed meats ? Using low-fat dairy products ? Limiting vegetable oils and nut oils ? Limiting sweets and processed foods such as chips, cookies, and baked goods ? Not eating trans fats. These are often found in processed foods. Don't eat any food that has hydrogenated oils listed in its ingredients. Follow-up care ? Keep your medical appointments. Close follow-up is important to stroke rehabilitation and recovery. ? Some medicines require blood tests to check for progress or problems. Keep follow-up appointments for any blood tests ordered by your providers. Call 911 Call 911 right away if you have any of the following symptoms of stroke: ? Weakness, tingling, or loss of feeling on one side of your face or body ? Sudden double vision or trouble seeing in one or both eyes ? Sudden trouble talking or slurred speech ? Trouble understanding others ? Sudden, severe headache ? Dizziness, loss of balance, or a sense of falling ? Blackouts or seizures B.E. F.A.S.T. is an easy way to remember the signs of stroke. When you see these signs, you know that you need to call 911 fast. B.E. F.A.S.T. stands for: ? B is for balance. Sudden loss of balance or coordination. ? E is for eyes. Vision changes in one or both eyes. ? F is for face drooping. One side of the face is drooping or numb. When the person smiles, the smile is uneven. ? A is for arm weakness. One arm is weak or numb. When the person lifts both arms at the same time, one arm may drift downward. ? S is for speech difficulty. You may notice slurred speech or trouble speaking. The person can't repeat a simple sentence correctly when asked. ? T is for time to call 911. If someone shows any of these symptoms, even if they go away, call 911 right away. Make note of the time the symptoms first appeared. Last Reviewed Date: 2022 00:00:00 ? [id number] [employer]. All rights reserved. This information is not intended as a substitute for professional medical care. Always follow your healthcare professional's instructions. [facility] [place], [place]2024-12-23 18:00:28 The patient is Moderately Stable - Low risk of patient condition declining or worsening The patient's goals for the shift include PAT (slurred speech) The clinical goals for the shift include SBP <160 Over the shift, the patient did make progress with goals. [place] [id number] 13:50:00 Pt back on unit. [place] 28863-12-22 10:57:00 Pt left the unit at this time for loop recorder placement. [facility] [place]2024-12-21 19:45:25 The patient is Moderately Stable - Low risk of patient condition declining or worsening The patient's goals for the shift include PAT (slurred speech) The clinical goals for the shift include SBP <160, increased PO nutritional intake Over the shift, the patient did not make progress toward the following goals. Barriers to progression include cognitive and mobility deficits . Recommendations to address these barriers include frequent rounding and assistance with feeding during meal times . [place] 156204-12-19 20:49:00 RN reached out to Shirin Ching NP. RN requested for ok to use cortrak. ROLLER SKATE ASSEMBLER said ok will follow up with resident. [place] 156204-12-19 19:29:05 The patient is Moderately Unstable - Medium risk of patient condition declining or worsening The patient's goals for the shift include PAT (slurred speech) The clinical goals for the shift include SBP <160 Problem: Nutrition Goal: Nutritional status is improving Outcome: Not Progressing [facility]2024-12-19 15:29:08 The patient is Moderately Unstable - Medium risk of patient condition declining or worsening The patient's goals for the shift include PAT (slurred speech) The clinical goals for the shift include SBP <160 [facility]2024-12-18 08:00:00 The patient is Moderately Unstable - Medium risk of patient condition declining or worsening The patient's goals for the shift include PAT (slurred speech), pt safety The clinical goals for the shift include SBP <160 Over the shift, the patient did not make progress toward the following goals. Barriers to progression include confusion. Recommendations to address these barriers include reinforcement. [facility]2024-12-17 12:21:46 [facility] Appointment Information VERY IMPORTANT INSTRUCTIONS, PLEASE READ !!! Appointment date: September @ 1:[address] Le. Call to dallin Diaz regarding stk appt, left detailed voicemail. Email to [email or web address]. Copy placed to bedside chart. Call Stroke Clinic @ [phone] if you need to cancel or reschedule appointment. You have been scheduled for a (in-person) visit for your stroke follow-up appointment. The address for in-person visits is listed below. For a telemedicine visit, you will need a smart device, a laptop with a camera, or a desktop with a camera. You will need a working email and phone number/alternate number to complete this visit. Before your visit, please sign-up with [facility]. You can sign-up using this link: [email or web address] and the activation code sent to your email or phone number. Please sign up at least 72 hours before your appointment. If you did not receive an activation code, please call [phone]. Through [facility], you will complete your information, view your medical records, send a message to your provider, and receive clinic forms in your [facility] inbox necessary to complete your visit. Please, complete the forms in their entirety. If you do not receive a reminder for your appointment within 48 hours of your scheduled appointment date, please call the office at [phone] to ensure that your information is correct. If your phone number or email changes before the appointment date, call the same number to update your information. If you have a telemedicine appointment, just click on the link sent to your phone or email to connect to the visit 15 minutes before your scheduled time. Please plan to arrive 15 minutes early for an in-person appointment. We look forward to seeing you soon. Clinic Address: [address] [place] [address], [address]. [place] [address]. . . Clinic parking ([address] [place] [address]) [email or web address] [facility]2024-12-17 07:56:45 The patient is Moderately Unstable - Medium risk of patient condition declining or worsening The patient's goals for the shift include PAT (slurred speech) The clinical goals for the shift include SBP <160 Over the shift, the patient did not make progress toward the following goals. Barriers to progression include confusion. Recommendations to address these barriers include reinforcement. [facility] 19:[facility]:06 The patient is Moderately Stable - Low risk of patient condition declining or worsening The patient's goals for the shift include PAT (slurred speech) The clinical goals for the shift include SBP <160 Over the shift, the patient did make progress toward the following goals. GER WIRELESS [facility] Townshipdean [id number] 16:16:05 Images from the original note were not included. [id number] Thrombolytic Therapy for Stroke An ischemic stroke occurs when blood flow to the brain is blocked. This is most often because of a blood clot in an artery in the brain or an artery leading to the brain. Treatment is needed right away to help dissolve the clot and restore normal blood flow. Restoring normal blood flow can limit damage to brain tissue and improve outcome. With thrombolytic therapy, a clot-busting medicine is used to dissolve the clot. The medicine may be given through an IV (intravenous) line. Or it may be directly sent to the site of the clot through a thin, flexible tube (catheter). Before the treatment ? People with certain health problems have increased risks for problems with thrombolytic therapy. For this reason, a detailed health history must be taken to check whether it's safe to have the treatment. Tell your healthcare provider about any health problems you have. The provider will also ask whether you?ve had specific problems, such as a past stroke, head injury, or bleeding in the brain. ? Tell the healthcare provider about all medicines you take. Mention if you take blood thinners (anticoagulants). Also mention if you take exji-urb-msbatjg medicines, vitamins, minerals, herbal medicines, or other supplements. ? Tell your provider about any allergies you may have, including allergy to contrast dye. ? Tell your healthcare provider if you use alcohol or tobacco products so that they can give you the safest possible care. ? Tell your healthcare provider if you are or if you are . ? Tell your healthcare provider if you have had recent surgery or a head injury. ? Certain tests need to be done before the treatment. These include blood tests and imaging tests, such as a CT or MRI scan of the brain. ? Treatment with a thrombolytic must start within 4.5 hours after symptoms start. ? To be eligible, you must have symptoms that continue plus a diagnosis of ischemic stroke. ? Your blood sugar will be checked to rule out low blood sugar as cause of symptoms. ? Two IV lines will be placed in your hand or arm. ? Your blood pressure may be lowered before giving a thrombolytic. During the treatment Through an IV line Clot-busting medicine is sent through an IV line in your arm or hand. It will travel through your blood until it reaches the clot. You?ll be watched closely throughout the treatment. You will stay in an intensive care unit or a stroke unit for at least 24 hours for monitoring. Your blood pressure must remain below 180/105 mmHg for the first 24 hours after therapy. Through a catheter ? You are given medicine to numb the site where the catheter will be inserted. This is often the groin area. ? The radiologist makes a small hole (puncture) in the artery. Then the provider puts the catheter into the hole. Using X-rays, the provider carefully guides the catheter through the artery. ? Contrast dye is injected through the catheter into the artery. This helps the artery show up clearly on X-ray images. The radiologist uses these images as a guide. They move the catheter through the artery to the clot. ? When the catheter reaches the clot, the radiologist adds medicine or uses a device to dissolve the clot. ? When the procedure is complete, the radiologist removes the catheter. ? The staff will put pressure on the insertion site for a time to stop any bleeding. Once the bleeding has stopped, they will put a very tight bandage on the site. After the treatment After the treatment, you?ll need to stay in the hospital for at least several days. More imaging tests will be done to check how well the clot is dissolving. Other tests may also be done to help find the cause of the stroke. If you have the catheter-directed thrombolysis, you will be taken to a recovery area to lie flat for a few hours. Your healthcare provider will talk with you about the results soon after the procedure. Depending on your test results and your health condition, you will either be discharged home or stay in the hospital. Once you are home: ? Don?t drive for 24 hours or as advised by your provider. ? Don't walk, bend, lift, or take stairs for 24 hours or as advised by your provider. ? Don't lift anything over 5 pounds (2.27 kg) for 7 days. Follow any other instructions from your healthcare provider. Risks and possible complications ? Bleeding in the brain or elsewhere in the body ? Allergic reaction to the clot-busting medicine. This includes skin rash, itching, or swelling of your face or tongue. ? Sharp pain or pain at the catheter insertion site that gets worse ? Chest pain or pressure ? Severe headache ? Shortness of breath ? Heart problems that get worse ? Dizziness or lightheadedness ? Nausea and vomiting ? Follow-up care Recovery from a stroke can take several months or longer. Keep all follow-up appointments with your healthcare provider. These are needed to keep track of your health and how well you are recovering. You may need other treatments, such as medicines, rehab (rehabilitation), and surgery in the future. Your healthcare provider will talk about these with you as needed. Call 911 Call 911 or go to an ER (emergency room) right away if you have any of these signs of a stroke: ? Sudden, unexplained numbness or weakness on a side of the body ? Problems seeing, double vision, or blurry vision ? Sudden confusion or problems with speech ? Sudden dizziness, trouble walking, or problems with balance ? Sudden, severe headache B.E. F.A.S.T. for stroke B.E. F.A.S.T. is an easy way to remember the signs of a stroke. When you see these signs, you will know that you need to call 911 fast. B.E. F.A.S.T. stands for: ? B is for balance. Sudden loss of balance or coordination. ? E is for eyes. Vision changes in 1 or both eyes. ? F is for face drooping. One side of the face droops or is numb. When the person smiles, the smile is uneven. ? A is for arm weakness. One arm is weak or numb. When the person lifts both arms at the same time, 1 arm may drift downward. ? S is for speech difficulty. You may notice slurred speech or trouble speaking. The person can't repeat a simple sentence correctly when asked. ? T is for time to call 911. If someone shows any of these symptoms, even if they go away, call 911 right away. Make note of the time the symptoms first appeared. If you are at risk for having a stroke: ? Keep a list of important phone numbers next to your phone or in your cell phone list of contacts. Include your healthcare provider and relatives or friends you want to be contacted. ? Carry a list of all medicines you take and the dosages of each, in your wallet. Include muxj-lcp-azahtnl medicines, vitamins, and supplements. ? Write a brief health history, including any other medical problems you have had and the dates. Keep this with the medicine list. Last Reviewed Date: 2024 00:00:00 ? [id number] [employer]. All rights reserved. This information is not intended as a substitute for professional medical care. Always follow your healthcare professional's instructions. This information has been modified by your health care provider with permission from the publisher. [facility]Child[facility] [id number] 03:28:40 The patient is Moderately Stable - Low risk of patient condition declining or worsening The patient's goals for the shift include PAT (slurred speech) The clinical goals for the shift include BP <180 Over the shift, the patient did not make progress toward the following goals. Barriers to progression include Problem: Neurological Deficit Goal: Neurological status is stable or improving Outcome: Not Progressing Goal: Maintain vital signs within ordered limits Outcome: Not Progressing Problem: Activity Intolerance/Impaired Mobility Goal: Mobility/activity is maintained at optimum level for patient Outcome: Not Progressing Problem: Communication Impairment Goal: Ability to express needs and understand communication Outcome: Not Progressing [facility]2024-12-15 19:42:08 The patient is Moderately Stable - Low risk of patient condition declining or worsening The patient's goals for the shift include PAT (slurred speech) The clinical goals for the shift include SBP <160 Over the shift, the patient did not make progress toward the following goals. [facility] [place] [place]2024-12-15 05:00:09 The patient is Moderately Stable - Low risk of patient condition declining or worsening The patient's goals for the shift include PAT (slurred speech) The clinical goals for the shift include SBP <160 Over the shift, the patient did not make progress toward the following goals. [facility] [place] [place]2024-12-14 04:59:26 The patient is Moderately Unstable - Medium risk of patient condition declining or worsening The patient's goals for the shift include no falls The clinical goals for the shift include frequent rounding,observing, neuro vital signs Over the shift, the patient did make progress toward the following goals. Barriers to progression include confusion. Recommendations to address these barriers include continued reoienation. [place] [address]-12-12 23:56:25 The patient is Moderately Stable - Low risk of patient condition declining or worsening The patient's goals for the shift include no falls. The clinical goals for the shift include no falls noted Over the shift, the patient did make progress toward the following goals. Barriers to progression include mental status. Recommendations to address these barriers include close observation [place] 260[address]-12-12 16:27:47 The patient is Moderately Stable - Low risk of patient condition declining or worsening The patient's goals for the shift include PAT (slurred speech) The clinical goals for the shift include SBP <160 [place] 156204-12-12 02:29:00 Severe sepsis page r/t temp 96.2 (In 24 hr), HR 92, RR 25, LA 2.03, and on antibiotic treatment for PNA. Patient with a hx of lung CA with mets. Patient temp improved. WBC increase on 08/23 so MD initiated sepsis workup, cultures in lab and started on antibiotics. WBC improving, HR and RR improved. Temp normalized. [place] [address]-12-11 20:00:00 The patient is Moderately Unstable - Medium risk of patient condition declining or worsening The patient's goals for the shift include PAT (slurred speech) The clinical goals for the shift include SBP <160 Over the shift, the patient did not make progress toward the following goals. Barriers to progression include patient uncooperative with not pulling at tubes. Recommendations to address these barriers include follow restraint protocol and assess every hour. [facility]2024-12-10 07:47:10 The patient is Moderately Stable - Low risk of patient condition declining or worsening The patient's goals for the shift include PAT (slurred speech) The clinical goals for the shift include SBP <160 Over the shift, the patient did not make progress toward the following goals. Barriers to progression include none. Recommendations to address these barriers include none. [facility]2024-12-09 03:17:56 The patient is Moderately Stable - Low risk of patient condition declining or worsening The patient's goals for the shift include safety The clinical goals for the shift include SBP <160 [facility]2024-12-08 18:59:04 Savi Schwartz and Stroke team fellow notified @181 that pt had become more dysarthric and no longer wanted to follow commands. Motor function remained unchanged. This occurred after of seroquel. Both Savi and stroke team came to bedside to assess the pt. I was instructed to continue transfer to stroke unit. Niurka Reilly RN [facility]2024-12-08 17:22:41 The patient is Moderately Stable - Low risk of patient condition declining or worsening The patient's goals for the shift include improved communication. The clinical goals for the shift include SBP <160 Over the shift, the patient did make progress toward the following goals. Barriers to progression include slurred speech. Recommendations to address these barriers include n/a. Problem: Communication Impairment Goal: Ability to express needs and understand communication Outcome: Not Progressing GER WIRELESS Anton[place]ta [id number] 13:11:00 History of Present Illness: Chief Complaint: Patient presents with Extremity Weakness Stroke Unable to speak Patient is an approximately 78-year-old male with PMH HTN, CVA with mild left-sided deficits who presents to ED for evaluation as a code stroke. With last known normal at 1145. Patient was reportedly at his baseline and was going to ride a bike with his daughter when he acutely developed aphasia and left-sided weakness. Taken the emergency department for further evaluation. At this time, patient able to follow commands, but is completely aphasic. With weakness of the left upper extremity relative to the right, but able to lift all 4 extremities. With right gaze deviation. Patient History Past Medical History: Diagnosis Date Hypertension Lung cancer (HCC) Stroke (HCC) History reviewed. No pertinent surgical history. No family history on file. Social History: Tobacco Use Smoking status: Not on file Smokeless tobacco: Not on file Substance Use Topics Alcohol use: Not on file Drug use: Not on file Review of Systems: Review of Systems Reason unable to perform ROS: Aphasia. Physical Exam: Constitutional: General: He is in acute distress. Appearance: Normal appearance. HENT: Head: Normocephalic and atraumatic. Eyes: General: Right eye: No discharge. Left eye: No discharge. Extraocular Movements: Extraocular movements intact. Cardiovascular: Rate and Rhythm: Normal rate and regular rhythm. Pulses: Normal pulses. Heart sounds: Normal heart sounds. Pulmonary: Effort: Pulmonary effort is normal. No respiratory distress. Breath sounds: Normal breath sounds. No wheezing. Abdominal: General: Abdomen is flat. Bowel sounds are normal. Palpations: Abdomen is soft. Tenderness: There is no abdominal tenderness. There is no guarding. Musculoskeletal: General: No swelling or deformity. Normal range of motion. Cervical back: Normal range of motion and neck supple. No tenderness. Skin: General: Skin is warm and dry. Findings: No erythema. Neurological: Mental Status: He is alert. Motor: Weakness present. Comments: Left-sided facial droop. 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 With right gaze deviation and complete aphasia Psychiatric: Mood and Affect: Mood normal. Triage Vitals: BP: 145/90, Heart Rate: 81, Temp: 37 ?C (98.6 ?F), Resp: 16, SpO2: 98 %, Weight: 90.3 kg (199 lb 1.2 oz) Last Recorded Vitals: BP: 148/55, Heart Rate: 77, Temp: 36 ?C (96.8 ?F), Resp: 13, SpO2: 97 %, Weight: 90.3 kg (199 lb) Procedures Performed: Procedures ED Course : Diagnoses as of 08/20/24 1250 Cerebrovascular accident (CVA), unspecified mechanism (HCC) Disposition: Admit/Observation Medical Decision Making Differential: CVA, LVO, ICH, recrudescence, electrolyte abnormality ED Course: Patient is an 78-year-old male with PMH HTN, CVA with mild left-sided deficits who presents to the ED for evaluation as a code stroke. On exam, patient with weakness of the left upper extremity relative the right as well as with complete aphasia, left-sided facial droop, and right gaze deviation, all of which are consistent with an ischemic stroke versus LVO. Patient does not have any clear contraindications to TNK at this time. Unlikely to be recrudescence given rapid onset and degree of patient's symptoms at this time. Patient evaluated by neurology and they are in agreement with diagnosis. Patient taken the scanner, where there was no evidence of a bleed. Decision was made at this time to give TNK. CTA obtained shortly thereafter additionally revealed LVO, and patient taken to IR emergently for thrombectomy. Admitted to neurology service Please see attending note for critical care billing Amount and/or Complexity of Data Reviewed Labs: ordered. Radiology: ordered. ECG/medicine tests: ordered. Risk Prescription drug management. Scoring Tools NIH Stroke Scale: 21 Tin Mendoza MD Resident 08/20/24 1250 Cosigned by Miki Hester MD at 08/20/2024 12:53 PM MANAGER WIRELESS GER WIRELESS GER WIRELESS Associated attestation - Miki Hester MD - 08/20/2024 12:53 PM MANAGER WIRELESS Teaching Attending Attestation: The patient was seen and examined by me in the presence of, or jointly with, the resident, and I agree with the History/Exam/Medical Decision Making documented unless further documented below. Additionally, I was directly involved in the management of the patient. Impression: 1. Acute ischemic stroke (HCC) 2. Cerebrovascular accident (CVA), unspecified mechanism (HCC) Miki Hester MD CRITICAL CARE NOTE I examined the patient: Betty Alba, who at that time was critically ill and had a high probability of sudden significant deterioration in his condition as evident by CRITICALCAREPRESENTATION: acute neurological deficit and required my constant medical attention and the highest level of preparedness to intervene urgently. I provided 30 minutes of aggregated critical care services to this patient while he was in critical condition including: direct patient care, documentation time, discussion with consultants, review of imaging studies, review of laboratory results, and decision regarding thromolytic therapy . The reported time excludes time spent on separately reportable procedures. Emergency MedicineMemoridean Carvalho
[2025-06-25 18:34] LABS: Absolute Lymphocytes (CBC) 2.7 K/uL (0.7-4.9); Hematocrit 40.8 % (39.6-49.0); Hemoglobin 13.2 g/dL (13.6-17.9); MCH 28.6 pg (27.0-35.0); MCHC 32.4 g/dL (32.0-36.0); MCV 88.3 fL (80-100); MPV 9.0 fL (7.6-11.3); Nucleated RBC Absolute Count 0.0 (0-0); Nucleated Red Blood Cells % 0.0 % (0-0); RBC Red Blood Cell Count 4.63 M/uL (4.33-5.43); White Blood Count 10.80 thou/uL (4.3-10.9)
--- NOTE | 2025-06-25 18:37 | RAD REPORT ---
EXAM: CT brain without contrast HISTORY: STROKE ALERT COMPARISON: None TECHNIQUE: Multiple contiguous axial images were obtained and a CT of the brain without contrast. Sag ittal and coronal reformats were performed. One or more of the following dose reduction techniques were used: Automated exposure control, adjust ment of the mA and/or kV according to patient size, and/or iterative reconstruction. FINDINGS: No evidence of hydrocephalus, intracranial hemorrhage, or extra-axial fluid collection. Large area of gliosis is seen right MCA territory. Areas of gliosis also seen left posterior parieta l region and right occipital parietal region. Mild brain atrophy with chronic periventricular deep white matter chronic microvascular ischemic findings. No evidence of midline shift or areas of brain edema. The calvarium is intact. The visualized paranasal sinuses and mastoid air cells are essentially clear . IMPRESSION: No evidence of acute intracranial abnormality. The findings were communicated with Howie Ruiz MD at 06/25/2025 6:35 PM by telephone.
[2025-06-25 18:53] LABS: Anion Gap 20.9 mEq/L (5.0-15.0); BUN Blood Urea Nitrogen 22.0 mg/dL (7-18); Glucose Level 166.0 mg/dL (74-106); Potassium 3.9 mEq/L (3.5-5.1); Troponin High Sensitivity 7.5 pg/mL (<58.9)
[2025-06-25 18:54] LABS: PT Prothrombin Time 12.1 SECONDS (10-13.0); PTT, Activated Partial Thromb 31.3 SECONDS (27.2-37.4); Protime INR 1.07
[2025-06-25] MEDS ORDERED: FOLIC ACID 5 MG/ML VIAL ONE (19:46)
[2025-06-25] MEDS ORDERED: NA CHLORIDE 0.9% 100 ML ONE (19:47)
[2025-06-25] MEDS ORDERED: LEVETIRACETAM 500 MG/5 ML VIAL IV ONE (19:47)
[2025-06-25] MEDS ORDERED: NA CHLORIDE 0.9% 1,000 ML ONE (19:47)
--- NOTE | 2025-06-25 19:57 | RAD REPORT ---
EXAMINATION: ONE VIEW CHEST XR CLINICAL INDICATION: code stroke TECHNIQUE: Frontal chest projection is submitted. Examination is limited by patient positioning and t echnique. COMPARISON: No prior exam. FINDINGS: The lungs are well inflated and clear. The heart is normal in size. No displaced fractures identified . IMPRESSION: No acute intrathoracic abnormalities.
--- NOTE | 2025-06-25 20:25 | ER ---
Nurse's Notes [facility] Name: Alfredo Tena Age: 79 yrs Sex: Male : 1945 Arrival Date: 06/25/2025 Time: 18:16 Bed 4 Private MD: Diagnosis: Syncope Near;Other seizures;Chronic kidney disease, unspecified;Severe sepsis with septic shock Presentation: 06/25 18:16 Chief complaint: EMS states: Per EMS, patient had a witnessed syncopal episode at ar8 \[id number]. Patient was unresponsive per family for 15 minutes, then was altered when he came too. 18:16 Method Of Arrival: EMS: [facility] ar8 18:16 Coronavirus screen: At this time, the client does not indicate any symptoms associated ar8 with coronavirus-19. Ebola Screen: No symptoms or risks identified at this time. Initial Sepsis Screen: Does the patient meet any 2 criteria? HR > 90 bpm. Does the patient have a suspected source of infection? No. Patient's initial sepsis screen is negative. Risk Assessment: Do you want to hurt yourself or someone else? Patient reports no desire to harm self or others. Onset of symptoms was June 25, 2025 at 17:45. 18:16 Acuity: MALLY 2 ar8 Triage Assessment: 18:16 General: Appears in no apparent distress. ar8 18:16 Pain: Denies pain. Neuro: Level of Consciousness is awake, alert, confused, Moves all ar8 extremities. Cardiovascular: Rhythm is sinus tachycardia. Respiratory: Airway is patent Respiratory effort is even, unlabored, Respiratory pattern is regular, symmetrical. GI: No signs and/or symptoms were reported involving the gastrointestinal system. : No signs and/or symptoms were reported regarding the genitourinary system. Derm: No signs and/or symptoms reported regarding the dermatologic system. Historical: - Allergies: 21:59 No Known Allergies; ha1 - Immunization history:: Adult Immunizations unknown. - Infectious Disease History:: Denies. - Social history:: Smoking status: unknown. - History obtained from: EMS. Screenin:29 [facility] ED Fall Risk Assessment (Adult) History of falling in the last 3 months, ar8 including since admission Yes- single mechanical fall (1 pt) Confusion or Disorientation Yes (5 pts) Intoxicated or Sedated No (0 pts) Impaired Gait Yes (1 pt) Mobility Assist Device Used No (0 pt) Altered Elimination No (0 pt) Score/Fall Risk Level 3 or more points = High Risk Oriented to surroundings, Maintained a safe environment. Abuse screen: Denies threats or abuse. Denies injuries from another. Nutritional screening: No deficits noted. Tuberculosis screening: No symptoms or risk factors identified. 20:05 [place] Swallow Protocol Exclusion Criteria: NPO for medical/surgical reason by provider kb3 order Yes Result: FAIL Notified: Phillip Blunt MD. Assessment: 18:19 Reassessment: CODE STROKE CALLED. PT TO CT VIA STRETCHER WITH DENISHA BRYAN. hb 18:31 Reassessment: FAMILY IS AT BEDSIDE. db 19:35 General: Appears comfortable, Behavior is cooperative. Pain: Denies pain. Neuro: Level ha1 of Consciousness is awake, Oriented to person, time. Cardiovascular: Capillary refill < 3 seconds Patient's skin is warm and dry. Respiratory: Airway is patent Respiratory effort is even, unlabored, Respiratory pattern is regular, symmetrical. GI: No signs and/or symptoms were reported involving the gastrointestinal system. Abdomen is round non-distended. : No signs and/or symptoms were reported regarding the genitourinary system. Derm: Skin is pink, warm \T\ dry. Musculoskeletal: Circulation, motion, and sensation intact. 20:10 Reassessment: Patient and/or family updated on plan of care and expected duration. Pain ha1 level reassessed. 21:58 Reassessment: Patient and/or family updated on plan of care and expected duration. Pain ha1 level reassessed. 22:30 Reassessment: Patient and/or family updated on plan of care and expected duration. Pain ha1 level reassessed. Respiratory: Airway is patent Respiratory effort is even, unlabored, Respiratory pattern is regular, symmetrical. Vital Signs: 18:16 BP 162 / 67; Pulse 115; Resp 20; Temp 98.3(A); Pulse Ox 95% on R/A; Pain 0/10; ar8 18:32 BP 162 / 62; Pulse 105; Resp 17; Pulse Ox 97% on R/A; Pain 0/10; ar8 18:50 BP 169 / 71; Pulse 110; Resp 20; Pulse Ox 97% on R/A; Weight 73.48 kg; Height 5 ft. 5 ar8 in. ; Pain 0/10; 19:30 BP 167 / 85; Pulse 98; Resp 20 S; Pulse Ox 97% on R/A; ha1 20:00 BP 165 / 71; Pulse 93; Resp 18 S; Pulse Ox 97% on R/A; ha1 20:30 BP 167 / 66; Pulse 97; Resp 18 S; Pulse Ox 98% on R/A; ha1 21:00 BP 171 / 64; Pulse 98; Resp 18 S; Pulse Ox 98% on R/A; ha1 21:30 BP 164 / 67; Pulse 88; Resp 18 S; Pulse Ox 96% on R/A; ha1 22:30 BP 162 / 65; Pulse 83; Resp 17 S; Pulse Ox 97% on R/A; ha1 18:50 Body Mass Index 26.96 (73.48 kg, 165.1 cm) ar8 18:16 Pain Scale: Adult ar8 18:32 Pain Scale: Adult ar8 18:50 Pain Scale: Adult ar8 NIH Stroke Scale Scores: 18:20 NIHSS Score: 3 db 18:24 NIHSS Score: 3 education intern Course: 18:16 Patient arrived in ED. bd 18:16 Arm band placed on right wrist. ar8 18:16 Bed in low position. Call light in reach. Side rails up X2. Provided Education on: plan ar8 of care. 18:16 Client placed on continuous cardiac and pulse oximetry monitoring. NIBP monitoring ar8 applied. Warm blanket given. 18:16 No provider procedures requiring assistance completed. Maintain EMS IV. Dressing ar8 intact. Good blood return noted. Site clean \T\ dry. Gauge \T\ site: 20G R AC. 18:[address] with RN. ar8 18:22 Howie Ruiz MD is Attending Physician. rn 18:24 Triage completed. ar8 18:24 Brian Cormier, RN is Primary Nurse. db 18:31 CT Stroke Brain w/o Contrast In Process Unspecified. EDMS 18:[address] ar8 18:43 EKG done, by ED staff, reviewed by Howie Ruiz MD. ar8 19:01 Stroke CXR 1 View In Process Unspecified. EDMS 19:24 Attending Physician role handed off by Howie Ruiz MD dread 19:24 Phillip Blunt MD is Attending Physician. dread 20:23 Balbir Mckeon MD is Hospitalizing Provider. dread 20:52 CT Head Angio In Process Unspecified. EDMS 20:52 CT Neck Angio In Process Unspecified. EDMS 21:58 Blood Culture Adult (2) Sent. ha1 23:25 Patient admitted, IV remains in place. vc1 Administered Medications: 20:00 Drug: foLIC Acid IVPB 1 mg IVPB once Route: IVPB; Site: left antecubital; ha1 21:00 Follow up: Response: No adverse reaction; IV Status: Completed infusion ha1 20:03 Drug: NS 0.9% IV 500 ml 500 ml IV at 1 bolus once; to be given as a bolus over 30 ha1 minutes Volume: 500 ml; Route: IV; Rate: 1 bolus; Site: left antecubital; 22:00 Follow up: Response: No adverse reaction; IV Status: Completed infusion ha1 20:03 Drug: NS 0.9% IV 500 ml 500 ml IV at 1 bolus once; to be given as a bolus over 30 ha1 minutes Volume: 500 ml; Route: IV; Rate: 1 bolus; Site: left antecubital; 22:00 Follow up: Response: No adverse reaction; IV Status: Completed infusion ha1 20:04 Drug: Keppra IV 1000 mg IV at per protocol once Route: IV; Rate: per protocol; Site: [facility] right antecubital; 20:30 Follow up: Response: No adverse reaction; IV Status: Completed infusion; IV Intake: ha1 100ml 21:58 Drug: NS 0.9% IV (30 ml/kg) 30 ml/kg IV at bolus once; Sepsis Protocol; to be given as ha1 a bolus over 90 minutes Route: IV; Rate: bolus; Site: right antecubital; 23:23 Follow up: Response: No adverse reaction; IV Status: Infusion continued upon admission ha1 21:58 Drug: Rocephin IV 1 grams IV at per protocol once; Given slow IV push per pharmacy ha1 instructions Route: IV; Rate: per protocol; Site: right antecubital; 22:20 Follow up: Response: No adverse reaction; IV Status: Completed infusion ha1 Medication: 18:29 VIS not applicable for this client. ar8 Intake: 20:30 IV: 100ml; Total: 100ml. 1 Outcome: 20:24 Decision to Hospitalize by Provider. dread 23:24 Admitted to ICU accompanied by yasmeen, via stretcher, room -5, Other ICU as overflow vc1 23:24 Condition: stable 23:24 Instructed on the need for admit, 23:26 Patient left the ED. vc1 NIH Stroke Scale - NIH Stroke Score Date: 06/25/2025 Time: 18:20 Total Score = 3 10. Dysarthria (speech clarity - read or repeat words) - 1(Mild to Moderate) 11. Extinction and Inattention (visual/tactile/auditory/spatial/personal) - 0(No abnormality) 1a. Level of Consciousness (LOC) - 0(Alert) 1b. Level of Consciousness (LOC) (Month \T\ Age) - 2(Neither) 1c. LOC Commands (Open \T\ Closes Eyes/Wall Crane Operator) - 0(Both) 2. Best Gaze (Lateral Gaze Paresis) - 0(Normal) 3. Visual Field Loss - 0(No visual loss) 4. Facial Palsy - 0(Normal) 5a. Left Arm: Motor (10-second hold) - 0(No drift) 5b. Right Arm: Motor (10-second hold) - 0(No drift) 6a. Left Leg: Motor (5-second hold - always test supine) - 0(No drift) 6b. Right Leg: Motor (5-second hold - always test supine) - 0(No drift) 7. Limb Ataxia (finger/nose \T\ heel/lui - test with eyes open) - 0(Absent) 8. Sensory Loss (pinprick arms/legs/face) - 0(Normal) 9. Best Language: Aphasia (description/naming/reading) - 0(No aphasia) Initials: db NIH Stroke Scale - NIH Stroke Score Date: 06/25/2025 Time: 18:24 Total Score = 3 10. Dysarthria (speech clarity - read or repeat words) - 1(Mild to Moderate) 11. Extinction and Inattention (visual/tactile/auditory/spatial/personal) - 0(No abnormality) 1a. Level of Consciousness (LOC) - 0(Alert) 1b. Level of Consciousness (LOC) (Month \T\ Age) - 2(Neither) 1c. LOC Commands (Open \T\ Closes Eyes/Wall Crane Operator) - 0(Both) 2. Best Gaze (Lateral Gaze Paresis) - 0(Normal) 3. Visual Field Loss - 0(No visual loss) 4. Facial Palsy - 0(Normal) 5a. Left Arm: Motor (10-second hold) - 0(No drift) 5b. Right Arm: Motor (10-second hold) - 0(No drift) 6a. Left Leg: Motor (5-second hold - always test supine) - 0(No drift) 6b. Right Leg: Motor (5-second hold - always test supine) - 0(No drift) 7. Limb Ataxia (finger/nose \T\ heel/lui - test with eyes open) - 0(Absent) 8. Sensory Loss (pinprick arms/legs/face) - 0(Normal) 9. Best Language: Aphasia (description/naming/reading) - 0(No aphasia) Initials: rn Signatures: Dispatcher [employer] EDMS Brittaney Mckenzie Corey, MD MD cha Nieto, Roman, MD MD rn Baxter, Heather, RN RN Tessy Avalos RN RN vc1 Nataliia Valadez RN RN ha1 Winsome Coyle RN IRVIN kb3 Brian Cormier, RN RN Kaushik Gomez, RN RN ar8 Corrections: (The following items were deleted from the chart) 18:42 18:19 Reassessment: CODE STROKE CALLED. PT TO CT VIA STRETCHER WITH BRIAN BRYAN hb hb
--- NOTE | 2025-06-25 20:25 | EDPHYS ---
Physician Documentation [facility] Name: Alfredo Tena Age: 79 yrs Sex: Male : 1945 Arrival Date: 06/25/2025 Time: 18:16 Bed 4 Private MD: ED Physician Phillip Blunt HPI: 06/25 18:24 This 79 yrs old Male presents to ER via EMS with complaints of S/S of Possible Stroke. rn 18:24 Patient brought in by EMS after syncopal episode followed by altered mental status. rn Unclear last known normal, EMS went straight to CT and waiting on family to confirm story. Per EMS report patient had a witnessed syncopal episode followed by loss of bowel movement and altered mental status and now improving. Was minimally responsive originally but now moving all 4 extremities and talking. Family not here to tell us his baseline. Glucose normal. Historical: - Allergies: 21:59 No Known Allergies; ha1 - Immunization history:: Adult Immunizations unknown. - Infectious Disease History:: Denies. - Social history:: Smoking status: unknown. - History obtained from: EMS. ROS: 18:24 Constitutional: Negative for fever, chills, and weight loss, Cardiovascular: Negative rn for chest pain, palpitations, and edema, Respiratory: Negative for shortness of breath, cough, wheezing, and pleuritic chest pain, Abdomen/GI: Negative for abdominal pain, nausea, vomiting, diarrhea, and constipation, Exam: 18:24 Constitutional: This is a well developed, well nourished patient who is awake, alert, rn and in no acute distress. Cardiovascular: Tachycardic, regular. No pulse deficits. Respiratory: Mild tachypnea Abdomen/GI: Soft, nontender, patient had bowel movement in pants Neuro: Mild slurred speech but moves all 4 extremities with equal strength and no drift. Follows commands. Oriented to person but not place or time. Unknown baseline, waiting on family 18:47 ECG was reviewed by the Attending Physician. rn 20:18 Radiologist reports: ct reviewed dread 20:18 Head/face: Exam is negative for acute changes, 20:18 Eyes: Exam is negative for acute changes, 20:18 Chest/axilla: Inspection: normal, no acute changes, Palpation: is normal, 20:18 Cardiovascular: Rate: tachycardic, actual rate is 103 bpm, Rhythm: regular, Pulses: Pulses are 4+ in bilateral radial, brachial, femoral, popliteal, posterior tibial and and dorsalis pedis arteries.. Heart sounds: normal, Edema: is not appreciated, JVD: is not appreciated, 20:18 Abdomen/GI: Exam negative for acute changes, Vital Signs: 18:16 BP 162 / 67; Pulse 115; Resp 20; Temp 98.3(A); Pulse Ox 95% on R/A; Pain 0/10; ar8 18:32 BP 162 / 62; Pulse 105; Resp 17; Pulse Ox 97% on R/A; Pain 0/10; ar8 18:50 BP 169 / 71; Pulse 110; Resp 20; Pulse Ox 97% on R/A; Weight 73.48 kg; Height 5 ft. 5 ar8 in. ; Pain 0/10; 19:30 BP 167 / 85; Pulse 98; Resp 20 S; Pulse Ox 97% on R/A; ha1 20:00 BP 165 / 71; Pulse 93; Resp 18 S; Pulse Ox 97% on R/A; ha1 20:30 BP 167 / 66; Pulse 97; Resp 18 S; Pulse Ox 98% on R/A; ha1 21:00 BP 171 / 64; Pulse 98; Resp 18 S; Pulse Ox 98% on R/A; ha1 21:30 BP 164 / 67; Pulse 88; Resp 18 S; Pulse Ox 96% on R/A; ha1 22:30 BP 162 / 65; Pulse 83; Resp 17 S; Pulse Ox 97% on R/A; ha1 18:50 Body Mass Index 26.96 (73.48 kg, 165.1 cm) ar8 18:16 Pain Scale: Adult ar8 18:32 Pain Scale: Adult ar8 18:50 Pain Scale: Adult ar8 NIH Stroke Scale Scores: 18:20 NIHSS Score: 3 db 18:24 NIHSS Score: 3 rn MDM: 18:22 Medical Screening Exam initiated rn 18:37 Discussion of test interpretation with radiology: I had a discussion with digital intern regarding a test interpretation. CT head images stroke protocol negative for acute finding per Dr. Buitrago. ED course: Family is here now, patient is back to baseline and family confirms he is back to baseline. Daughter states that patient was in seated position had shaking-like activity followed by sonorous respirations and difficult to arouse. Multiple family members in the room confirmed that he is at baseline at this time.. ED course: Patient is not a TNKase candidate as he is back to baseline and they report either syncopal versus seizure episode at home.. 19:01 ED course: Patient continues to improve and remains at baseline.. rn 19:01 Transition of care: After a detail discussion of the patient's case, care is rn transferred to Phillip Blunt MD. 20:21 TNKase (Tenecteplase) Screening: Indications: Definite evidence of stroke, ischemic, dreda embolic, or hypertensive: No. Treatment will start within 4.5 hours onset of symptoms: Yes. No evidence of intracranial hemorrhage or CT of head and no evidence of peripheral hemorrhage or recent CVA: Yes. Consent for thrombolytic therapy: No. Contraindications: Seizure at onset of stroke or other uncontrolled chronic seizure disorder: Yes. Data reviewed: vital signs, nurses notes, lab test result(s), EKG, radiologic studies, CT scan, plain films. Consideration of Admission/Observation Patient was admitted/placed on observation. Escalation of care including admission/observation considered. I considered the following discharge prescriptions or medication management in the emergency department Medications were administered in the Emergency Department. See MAR. Independent interpretation of the following test(s) in the Emergency Department EKG: See my EKG interpretation above. Test considered but Not performed: MRI: no mri brain. Care significantly affected by the following chronic conditions: Hypertension, cva, asp therapy. 06/25 18:23 Order name: Basic Metabolic Panel; Complete Time: 18:58 06/25 18:23 Order name: CBC with Diff; Complete Time: 18:38 06/25 18:23 Order name: High Sensitivity Troponin; Complete Time: 18:58 06/25 18:23 Order name: Protime (+inr); Complete Time: 18:58 06/25 18:23 Order name: Ptt, Activated; Complete Time: 18:58 06/25 18:23 Order name: Lactate w/ 2H reflex if indic.; Complete Time: 18:58 06/25 18:32 Order name: Glucose, Ancillary Testing; Complete Time: 18:38 EDSD 06/25 18:47 Order name: UA Rfx Per Cult if indicated rn 06/25 19:00 Order name: Ghost Lactate-NO COLLECT Timer EDSD 06/25 19:59 Order name: Blood Culture Adult (2) [facility] 06/25 22:17 Order name: Lactate Sepsis 2 HR Follow-up [facility] 06/25 18:23 Order name: CT Stroke Brain w/o Contrast; Complete Time: 18:38 06/25 18:23 Order name: Stroke CXR 1 View; Complete Time: 20:00 06/25 19:25 Order name: CT Head Angio [facility] 06/25 19:25 Order name: CT Neck Angio [facility] 06/25 20:37 Order name: CONS Physician Consult [facility] 06/25 18:23 Order name: Accucheck; Complete Time: 18:35 06/25 18:23 Order name: Cardiac monitoring; Complete Time: 18:35 06/25 18:23 Order name: EKG - Nurse/Tech; Complete Time: 18:35 06/25 18:23 Order name: IV Saline Lock; Complete Time: 18:35 06/25 18:23 Order name: Labs collected and sent; Complete Time: 18:35 06/25 18:23 Order name: NPO; Complete Time: 18:35 06/25 18:23 Order name: O2 Per Protocol; Complete Time: 18:35 06/25 18:23 Order name: O2 Sat Monitoring; Complete Time: 18:35 06/25 18:23 Order name: Stroke Swallow Screen; Complete Time: 20:05 06/25 19:29 Order name: Seizure Precautions; Complete Time: 20:04 [facility] EC:47 Rate is 103 beats/min. Rhythm is regular. QRS [place] is Normal. NE interval is normal. rn QRS interval is normal. QT interval is normal. No Q waves. T waves are Normal. No ST changes noted. Clinical impression: Sinus tachycardia. Interpreted by me. Reviewed by me. Administered Medications: 20:00 Drug: foLIC Acid IVPB 1 mg IVPB once Route: IVPB; Site: left antecubital; ha1 21:00 Follow up: Response: No adverse reaction; IV Status: Completed infusion ha1 20:03 Drug: NS 0.9% IV 500 ml 500 ml IV at 1 bolus once; to be given as a bolus over 30 ha1 minutes Volume: 500 ml; Route: IV; Rate: 1 bolus; Site: left antecubital; 22:00 Follow up: Response: No adverse reaction; IV Status: Completed infusion ha1 20:03 Drug: NS 0.9% IV 500 ml 500 ml IV at 1 bolus once; to be given as a bolus over 30 ha1 minutes Volume: 500 ml; Route: IV; Rate: 1 bolus; Site: left antecubital; 22:00 Follow up: Response: No adverse reaction; IV Status: Completed infusion ha1 20:04 Drug: Keppra IV 1000 mg IV at per protocol once Route: IV; Rate: per protocol; Site: ha1 right antecubital; 20:30 Follow up: Response: No adverse reaction; IV Status: Completed infusion; IV Intake: ha1 100ml 21:58 Drug: NS 0.9% IV (30 ml/kg) 30 ml/kg IV at bolus once; Sepsis Protocol; to be given as ha1 a bolus over 90 minutes Route: IV; Rate: bolus; Site: right antecubital; 23:23 Follow up: Response: No adverse reaction; IV Status: Infusion continued upon admission ha1 21:58 Drug: Rocephin IV 1 grams IV at per protocol once; Given slow IV push per pharmacy ha1 instructions Route: IV; Rate: per protocol; Site: right antecubital; 22:20 Follow up: Response: No adverse reaction; IV Status: Completed infusion ha1 Disposition Summary: 06/25/25 20:24 Hospitalization Ordered Notes: Hospitalization Status: Inpatient Admission dread Provider: Balbir Mckeon cha Condition: Fair dread Problem: new dread Symptoms: have improved dread Bed/Room Type: Standard [facility] Location: Intensive Care Unit(06/25/25 22:24) Room Assignment: 5-(06/25/25 22:24) cg Diagnosis - Syncope Near dread - Other seizures dread - Chronic kidney disease, unspecified dread - Severe sepsis with septic shock dread Forms: - Medication Reconciliation Form dread - SBAR form dread - Leadership Thank You Letter dread Critical care time excluding procedures: 21:01 Critical care time: Bedside Care: 20 minutes, Consultation: 10 minutes, Family dread Intervention: 10 minutes. Total time: 40 minutes NIH Stroke Scale - NIH Stroke Score Date: 06/25/2025 Time: 18:20 Total Score = 3 10. Dysarthria (speech clarity - read or repeat words) - 1(Mild to Moderate) 11. Extinction and Inattention (visual/tactile/auditory/spatial/personal) - 0(No abnormality) 1a. Level of Consciousness (LOC) - 0(Alert) 1b. Level of Consciousness (LOC) (Month \T\ Age) - 2(Neither) 1c. LOC Commands (Open \T\ Closes Eyes/Trench Shovel Operator) - 0(Both) 2. Best Gaze (Lateral Gaze Paresis) - 0(Normal) 3. Visual Field Loss - 0(No visual loss) 4. Facial Palsy - 0(Normal) 5a. Left Arm: Motor (10-second hold) - 0(No drift) 5b. Right Arm: Motor (10-second hold) - 0(No drift) 6a. Left Leg: Motor (5-second hold - always test supine) - 0(No drift) 6b. Right Leg: Motor (5-second hold - always test supine) - 0(No drift) 7. Limb Ataxia (finger/nose \T\ heel/lui - test with eyes open) - 0(Absent) 8. Sensory Loss (pinprick arms/legs/face) - 0(Normal) 9. Best Language: Aphasia (description/naming/reading) - 0(No aphasia) Initials: db NIH Stroke Scale - NIH Stroke Score Date: 06/25/2025 Time: 18:24 Total Score = 3 10. Dysarthria (speech clarity - read or repeat words) - 1(Mild to Moderate) 11. Extinction and Inattention (visual/tactile/auditory/spatial/personal) - 0(No abnormality) 1a. Level of Consciousness (LOC) - 0(Alert) 1b. Level of Consciousness (LOC) (Month \T\ Age) - 2(Neither) 1c. LOC Commands (Open \T\ Closes Eyes/Trench Shovel Operator) - 0(Both) 2. Best Gaze (Lateral Gaze Paresis) - 0(Normal) 3. Visual Field Loss - 0(No visual loss) 4. Facial Palsy - 0(Normal) 5a. Left Arm: Motor (10-second hold) - 0(No drift) 5b. Right Arm: Motor (10-second hold) - 0(No drift) 6a. Left Leg: Motor (5-second hold - always test supine) - 0(No drift) 6b. Right Leg: Motor (5-second hold - always test supine) - 0(No drift) 7. Limb Ataxia (finger/nose \T\ heel/lui - test with eyes open) - 0(Absent) 8. Sensory Loss (pinprick arms/legs/face) - 0(Normal) 9. Best Language: Aphasia (description/naming/reading) - 0(No aphasia) Initials: rn Signatures: Dispatcher [employer] EDPhillip Salas MD MD cha Nieto, Roman, MD MD rn Garcia, Cindy, RN RN Nataliia Valadez RN RN [facility] Corrections: (The following items were deleted from the chart) 18:24 18:24 BASIC METABOLIC PANEL+C.LAB.BRZ ordered. EDMS EDMS 18:24 18:24 CBC+H.LAB.BRZ ordered. EDMS EDMS 18:24 18:24 Troponin High Sensitivity+C.LAB.BRZ ordered. EDMS EDMS 18:24 18:24 PROTIME (+INR)+COAG.LAB.BRZ ordered. EDMS EDMS 18:24 18:24 PTT, ACTIVATED+COAG.LAB.BRZ ordered. EDMS EDMS 18:24 18:24 LACTATE+C.LAB.BRZ ordered. EDMS EDMS 18:24 18:24 CT-STROKE BRAIN W/O CONTRAST+CT.RAD.BRZ ordered. EDMS EDMS 18:24 18:24 Chest Single View+RAD.RAD.BRZ ordered. EDMS EDMS 20:41 20:24 [facility] 22:24 20:24 Telemetry/MedSurg (Inpatient) [facility] 22:24 20:[address] [place] [address]
[2025-06-25] MEDS ORDERED: CEFTRIAXONE 1000 MG/VIAL ONE (20:29)
[2025-06-25] MEDS ORDERED: NA CHLORIDE 0.9% 2,000 ML ONE (20:29)
--- NOTE | 2025-06-25 21:24 | RAD REPORT ---
EXAMINATION: CTA HEAD CLINICAL INDICATION: Dizziness;Seizure TECHNIQUE: Axial CT images were obtained through the head after intravenous contrast utilizing angio raph protocol with 3D post-processing (maximum intensity projection images, volume rendered images and/or shaded surface rendered images). One or more of the following dose reduction technique s were used: Automated exposure control, adjustment of the mA and/or kV according to patient size, and/or iterative reconstruction. Unless otherwise specified, incidental findings do not require dedic ated imaging follow-up. COMPARISON: No prior exam. FINDINGS: ICA: The petrous, cavernous, and supraclinoid segments of the bilateral internal carotid arteries are normal. The ophthalmic artery origins are visualized and normal. The posterior communicating arteries are patent. TIM: Anterior cerebral arteries are normal bilaterally. The anterior communicating artery is patent. MCA: Diminished flow right M2 segment and distal branches. There is evidence of significant gliosis i nvolving the distribution of the right MCA likely from remote infarct. Patent left MCA. PAWN SHOP KEEPER: Posterior cerebral arteries are normal bilaterally. Vertebrobasilar: Left V4 segment demonstrates moderate hard plaque in its mid aspect resulting in mod erate stenosis. Basilar artery is patent. Right V4 segment is diminutive but patent. 3D images confirm these findings. IMPRESSION: Diminished right M2 branch flow likely related to previous infarct in the region. Patent left V4 segment with moderate mid hard plaquing resulting in moderate stenosis. Basilar artery is patent.
--- NOTE | 2025-06-25 21:30 | RAD REPORT ---
EXAMINATION: CTA NECK CLINICAL INDICATION: PAIN TECHNIQUE: Axial CT images were obtained from the aortic arch to the skull base after intravenous con trast utilizing angiographic protocol with 3D post-processing (maximum intensity projection images, volume rendered images and/or shaded surface rendered images). One or more of the following dose redu ction techniques were used: Automated exposure control, adjustment of the mA and/or kV according to patient size, and/or iterative reconstruction. Unless otherwise specified, incidental findings do not require dedicated imaging follow-up. COMPARISON: No prior exam. FINDINGS: AORTA: The imaged aortic arch is normal. CCA: The common carotid arteries are patent and normal in caliber. ICA/ECA: There is motion degradation present limiting the image quality. Within this limitation, ther e is evidence of moderate hard plaque distal right common carotid/right carotid bulb resulting in severe stenosis estimated at 95-99%. There is a large hard plaque present left carotid bulb resulting in moderate to severe stenosis estimated at 70-80%. VERTEBRAL: The cervical vertebral arteries are patent. Mildly dominant left vertebral artery. SOFT TISSUE: No significant neck soft tissue abnormalities. Emphysematous upper lung pace. Moderate lower cervical spondylosis. 3D images confirm these findings. IMPRESSION: There is motion degradation present on the study, limiting assessment. However, 95-99% stenosis of th e proximal right ICA and 70-80% stenosis of the proximal left ICA suspected, caused by significant hard plaquing. NASCET criteria used. Mild 0-49% stenosis Moderate 50-69% stenosis Severe 70-99% stenosis
[2025-06-25 22:10] LABS: Sqamous Epithelial None Seen /HPF (None Seen); Urine Culture Reflex Order REFLEXED; Urine Microscopic Reflex YN ORDER UMIC; Urine Yeast (Budding) Trace /HPF (None Seen)
[2025-06-25] MEDS ORDERED: ONDANSETRON 4 MG/2 ML VIAL IV PRN (22:53)
[2025-06-25] MEDS ORDERED: ACETAMINOPHEN 500 MG TAB PO PRN (22:53)
[2025-06-25] MEDS ORDERED: MORPHINE 4 MG/ML SYR IV PRN (22:53)
[2025-06-25] MEDS: FAMOTIDINE 20 MG/2 ML VIAL IV SCH (22:53)
[2025-06-25] MEDS ORDERED: ACETAMINOPHEN 325 MG TABLET PO PRN (22:57)
[2025-06-25] MEDS: NA CHLORIDE 0.9% 1,000 ML IV SCH (23:50)
[2025-06-26] MEDS: FAMOTIDINE 20 MG/2 ML VIAL IV ONE (00:03)
[2025-06-26] MEDS: levETIRAcetam 500 MG TAB PO SCH (00:03)
[2025-06-26 00:44] VITALS: BMI 24.0
[2025-06-26] MEDS: SENOSIDES 8.6 MG TAB PO SCH (08:30)
[2025-06-26] MEDS: ENOXAPARIN 40 MG/0.4 ML SQ SCH (08:30)
[2025-06-26] MEDS: ASPIRIN EC 81 MG TAB PO SCH (08:30)
[2025-06-26] MEDS: NA CHLORIDE 0.9% 1,000 ML IV SCH (08:31)
[2025-06-26 08:33] LABS: Absolute Lymphocytes (CBC) 1.3 K/uL (0.7-4.9); Hematocrit 36.2 % (39.6-49.0); Hemoglobin 12.2 g/dL (13.6-17.9); MCH 29.5 pg (27.0-35.0); MCHC 33.8 g/dL (32.0-36.0); MCV 87.3 fL (80-100); MPV 8.8 fL (7.6-11.3); Nucleated RBC Absolute Count 0.0 (0-0); Nucleated Red Blood Cells % 0.0 % (0-0); RBC Red Blood Cell Count 4.15 M/uL (4.33-5.43); White Blood Count 9.20 thou/uL (4.3-10.9)
[2025-06-26 08:48] LABS: Anion Gap 9.1 mEq/L (5.0-15.0); BUN Blood Urea Nitrogen 15.0 mg/dL (7-18); Glucose Level 110.0 mg/dL (74-106); Potassium 4.1 mEq/L (3.5-5.1)
[2025-06-26 08:58] LABS: ALT/SGPT 20 U/L (16-61); Albumin 2.7 g/dL (3.4-5.0); Albumin/Globulin Ratio 0.9 (1.1-1.8); Alkaline Phosphatase 64 U/L (45-117); Globulin 3.1 g/dL (2.3-3.5); Thyroid Stimulating Hormone 1.730 uIU/mL (0.358-3.740)
[2025-06-26 09:08] LABS: AST/SGOT < 10 U/L (15-37); Bilirubin Indirect, Calculated 0.2 mg/dL (0.2-0.8)
[2025-06-26] MEDS: FLU (Fluarix) 25-26 (6MOS UP)/PF 45 MCG/0.5 ML Syringe IM ONE (09:18)
[2025-06-26] MEDS: ATORVASTATIN 80 MG TAB PO SCH (20:51)
[2025-06-26] MEDS: FAMOTIDINE 20 MG/2 ML VIAL IV SCH (20:51)
--- NOTE | 2025-06-26 22:47 | CON ---
Reason For Consultation: Possible seizure. History Of Present Illness: Mr. Tena is in ICU, unable to really give a clear history. Family di d provide information and nursing staff. There was a reported loss of awareness, and some potential shaking or seizure-like activity with a bowel movement. It is unclear the length of time or in recov samantha. However, when the patient got back to the emergency room, the patient move all extre mities to command and was minimally responsive, but is still communicative. No reported history of s imilar episodes, although there is a possibility of prior seizure activity. There is a CT scan that was done in the emergency room. Head CT scan showed no acute ischemic or hemorrhagic findings. The study did show a large area of gliosis in the right MCA territory and in the left posteroparietal reg ion and the right occipitoparietal region along with mild atrophy and chronic periventricular white m atter chronic small vessel ischemic disease. However, there was no acute ischemic hemorrhagic change s identified. The CT angiogram of the patient's head did show diminished right M2 branch flow, likel y related to a previous infarct with a patent left V4 segment and moderate hard plaquing with moderat e stenosis in that area and the basilar artery was patent there is a hard plaque identifie d. His neck CT angiogram identified 95% to 99% stenosis of the proximal right internal carotid arter y, 70%-80% stenosis of the proximal left internal carotid artery suspected and has hard plaque presen t. Chest x-ray showed no acute intrathoracic abnormalities. Laboratory Studies: Not consistent with infection with normal white blood cell count. Hemoglobin ar ound 12.3, platelets unremarkable at 231. INR 1.07. His metabolic panel; normal sodium, normal pota ssium, chloride slightly elevated, creatinine 0.84, glucose ranged from 87-143, A1c is 6.5. Lactic a moy level of 1.4, calcium 7.9. Liver function studies unremarkable. PSA 1.73 and his urinalysis did show 75 esterase, white blood cells 20-50, trace budding yeast, trace ketones. Blood cul tures and urine cultures are pending. Past Medical History: Has not clearly identified. Allergies: HE HAS REPORTED NO KNOWN DRUG ALLERGIES. THIS IS FROM CHART REVIEW. Medications: Tylenol 650 every 6 hours as needed, aspirin 81 mg daily, Lipitor 80 mg at bedtime. He does have Pepcid for GE reflux, Lovenox for DVT prophylaxis, Keppra for reducing risk of seizures at 500 mg twice daily. He is on walking on board for pain, Zofran for nausea, Senokot for constipation . He is receiving sodium chloride. Family History: At this point, noncontributory. Social History: No alcohol or drug use. Physical Examination: Vital Signs: Blood pressure 125/58, pulse 89, respiratory rate 18, temperature 97.6, O2 saturation 9 9%. Weight 160 pounds, height 5 feet 5 inches, BMI 27.0. Extremities: , not communicating very effectively. The patient's family is at bedside pro viding more information. He does appear to have some asymmetries and difficulty assessing strength i n both upper and lower extremities potentially from prior strokes. It appears to be diffuse weakness , arms and legs. Unable to fully assess sensation, coordination, and also gait. Assessment And Plan: Mr. Tena is an 79-year-old patient with possible recent onset seizures. 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 In terms of his workup, there is an EEG, that is done, results are pending. Plan: Continue with Keppra 500 mg twice daily. Observe seizure precautions. Observe for potential aspiration and undergo repeat chest x-ray to rule that out. He is to minimize the risk of significan t debility. He should have some mobilization protocol and offloading to reduce the risk of decubital ulcers continue with his management. Other medication for stroke risk reduction; Lipitor , aspirin, Lovenox for DVT risk reduction, and Senokot for constipation, IV hydration to minimize the risk of dehydration, which may worsen his stroke-like symptoms or urinary tract infection . At this point, if the patient is unable to recover in a meaningful way, consider potentially hospi ce depending on how he is able to recover given his multiple strokes and multiple vascular territorie s. DAMIÁN/MODL Voice ID: [id number] Report ID: [id number]
--- NOTE | 2025-06-27 00:47 | HP ---
Date of Admission: 06/26/2025 Chief Complaint: Altered mental status. History Of Present Illness: This is an 79-year-old pleasant male patient, who lives at home with daughter, was brought into the emergency room yesterday with altered mental status. The patient was sitting and family noted that he was shaking and had snoring type of breathing pattern and subsequently he became unresponsive and had a bowel movement while he was unresponsive and subsequently was appearing confused, so family called and the patient was brought into ER. After he was brought to ER and evaluated his mental status, he got back to his normal baseline and after workup was , I was contacted requesting admission to the hospital. The patient was admitted to the hospital. He was in the ICU as an overflow patient as there were no beds available. Allergies: NO KNOWN ALLERGIES. 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 All other systems reviewed and negative. Medications: mg daily, metoprolol succinate 25 mg daily in morning, Mounjaro 5 mg once a week, albuterol and Atrovent nebulizer treatment 4 times a day as needed, aspirin 81 mg daily, Lantus insulin 22 units subcutaneous injection daily at bedtime, and metformin 500 mg 3 times a day with meals. Past Medical History: Significant for stroke in 2014, treated with aspirin and Plavix for 1 month and then aspirin daily and he had second stroke in August 2024. Past medical history also significant for dementia, cataract, type 2 diabetes mellitus, COPD, lung cancer which was stage IV lung cancer treated with chemo and radiation therapy in 2020. Hypertension, hyperlipidemia, aortic regurgitation, high PSA, basal cell carcinoma of skin, anemia, and vitamin B12 deficiency. Past Surgical History: Removal of left tonsillar stone on January 05, 2023, angioplasty with stent placement to both iliac arteries, and splenectomy. Family History: Father , details unknown. Mother and had diabetes. Social History: Prior history of smoking, not at present time. Use of alcohol, negative. Physical Examination: Vital Signs: Temperature 98, pulse 69, respiratory rate 20, blood pressure 138/40, oxygen saturation 97% on room air. Height 5 feet 8 inches, weight 158 pounds. General: Awake, alert, oriented, not in distress. HEENT: Head atraumatic, normocephalic. Conjunctivae nonerythematous. Sclerae white. Mouth, no thrush or edema noted. Ears/Nose, no mass, lesion, discharge noted. Neck: Supple. No JVD, lymph nodes, bruit, thyromegaly noted. Lungs: Bilateral good equal air entry. Clear to auscultation. No rhonchi. No rales. Heart: Normal heart sounds, no murmur or gallop. Abdomen: Soft, bowel sounds normal. No guarding, rigidity, tenderness, mass, hepatosplenomegaly, distention, or bruit noted. Extremities: No leg edema. No calf tenderness. Skin: No rash, ulcer, cellulitis. Lymphatics: No lymph node enlargement in neck, supraclavicular, infraclavicular region. Neuro: No focal neurological deficit. Chest: Unremarkable. External Genitalia: Deferred. Rectal: Deferred. Laboratory Data: Upon admission, WBC 10.80, hemoglobin 13.2, platelets 286. Sodium 138, potassium 3.9, chloride 101, bicarb 20, BUN 22, creatinine 1.33, glucose 166, lactic acid 10.7, repeat lactic acid was 3.1. Initial troponin 7.5 and repeat troponin 6.3. Repeat blood work this morning, WBC 9.2, hemoglobin 12.2, platelets 231. Sodium 140, potassium 4.1, chloride 108, bicarb 27, BUN 15, creatinine 0.84, glucose 170, lactic acid 1.4. Urinalysis, 2+ blood, 75 leukocytes, more than 50 rbc, 20 to 50 wbc, bacteria not seen. CAT scan of the head, no acute intracranial changes. CT angiogram of head and neck shows 95% to 99% right proximal ICA and 70% to 80% left proximal ICA stenosis suspected and left V4 segment moderate stenosis suspected. Impression: 1. New onset seizure. 2. Lactic acidosis secondary to above. 3. Hypertension. 4. Hyperlipidemia. 5. Type 2 diabetes mellitus. 6. Peripheral vascular disease. 7. Bilateral carotid artery stenosis. 8. Left vertebral artery stenosis. Plan: Admit the patient to hospital for further evaluation and management of this problem. The patient is appropriate for inpatient and is expected to spend 2 midnights in hospital. For this new onset seizure, the patient was started on Keppra and we will continue that per order and consult neurologist Dr. [place] and get EEG done. Seizure precaution was ordered. For lactic acidosis, no need for any further intervention. IV fluid was given and the patient received adequate amount of IV fluid in the emergency room and when I saw him, he was getting 125 cc/hour, I will reduce it to 75 cc/hour. Consult Physical Therapy to help ambulate the patient. For diabetes, we will manage that with sliding scale insulin per order. For hyperlipidemia, continue statin therapy and no need for further intervention. For hypertension, he is on metoprolol and we will monitor blood pressure and make decision regarding antihypertensive medication accordingly. Continue aspirin, and Lovenox was ordered for DVT prophylaxis. Total time spent 65 minutes including review of last office visit record from 04/24/2025, review of emergency room visit record, communication with emergency room provider, and performing today's evaluation and management. TIM/ALESSANDRO Voice ID: [id number] [email or web address]
[2025-06-27 09:29] VITALS: BP 169/79; TEMP 97.7
[2025-06-27 09:37] VITALS: O2SAT 97
--- NOTE | 2025-06-28 03:03 | DS ---
Date of Discharge: 06/27/2025 Disposition: Discharged to go home. Physical Examination: HEENT: Unremarkable. Lungs: Clear to auscultation. Heart: Sounds normal. Abdomen: Soft. Bowel sounds normal. No guarding, rigidity, tenderness, distention. Extremities: No leg edema. Laboratory Data: Upon admission, WBC 10.80, hemoglobin 13.2, platelets 286. Sodium 138, potassium 3.9, chloride 101, bicarb 20, BUN 22, creatinine 1.33, glucose 166, lactic acid 10.7, repeat lactic acid was 3.1. Initial troponin 7.5 and repeat troponin 6.3. Repeat blood work this morning, WBC 9.2, hemoglobin 12.2, platelets 231. Sodium 140, potassium 4.1, chloride 108, bicarb 27, BUN 15, creatinine 0.84, glucose 170, lactic acid 1.4. Urinalysis, 2+ blood, 75 leukocytes, more than 50 rbc, 20 to 50 wbc, bacteria not seen. CAT scan of the head, no acute intracranial changes. CT angiogram of head and neck shows 95% to 99% right proximal ICA and 70% to 80% left proximal ICA stenosis suspected and left V4 segment moderate stenosis suspected. Discharge Diagnoses: 1. New onset seizure. 2. Lactic acidosis secondary to above. 3. Hypertension. 4. Hyperlipidemia. 5. Type 2 diabetes mellitus. 6. Peripheral vascular disease. 7. Bilateral carotid artery stenosis. 8. Left vertebral artery stenosis. Discharge Medications And Instructions: Continue all prior home medications except stop Metformin. Start Levetiracetam 500 mg, take 1 tablet by mouth two times a day and prescription was sent to [facility] pharmacy from Dr Mckeon's office Follow up with Dr. Mckeon next week. Follow up with Dr. Díaz in one month. Hospital Course: This is an 79-year-old male patient, who was admitted to the hospital with altered mental status. Please see dictated H and P for more information. After the patient was evaluated in the emergency room, he was admitted to the hospital with new onset seizure. Dr. Díaz from Neurology was consulted and the patient was started on Keppra 500 mg 2 times a day. The patient has tolerated this medication very well. He has not had any recurrence of seizure episode while in the hospital. Initially when he came into emergency room, his lactic acid level was very high. He received IV fluid 2 L in the emergency room and subsequently maintenance IV fluid was given. Initially, the patient was admitted to ICU as an overflow patient and yesterday he was transferred out of ICU to regular room. Physical Therapy was consulted. His last lactic acid level from yesterday came back to normal. Social Service was consulted to make arrangements for home health and home physical therapy and today from my office, the patient's daughter was notified about discharge medication and instruction which is to start Keppra 500 mg 2 times a day and to stop metformin in view of his presentation to the hospital with lactic acidosis as metformin can cause or contribute to lactic acidosis problem and his hemoglobin A1c during this hospitalization is 6.5, so he really does not need to continue that, but he will continue his Mounjaro which really has helped him very well. EEG was done during this hospitalization, but result is pending and we have encouraged the patient's daughter to make sure to have follow up with neurologist. Total time spent 35 minutes. TIM/MODL Voice ID: [id number] Report ID: [id number] TONI
--- NOTE | 2025-06-28 09:12 | EEG ---
CHART: [id number] TEST ID#: [id number] DATE OF STUDY: 06/25/2025 THE EEG WAS RECORDED PORTABLE IN THE ICU ON A 17 CHANNEL MACHINE. ELECTRODES WERE APPLIED IN THE USUAL MANNER USING THE INTERNATIONAL 10-20 SYSTEM. THE WAKING BACKGROUND RHYTHM IN THIS RECORD CONSISTS OF POORLY DEVELOPED AND POORLY ORGANIZED WAVES OF 7-8 HZ., IN A WIDE DISTRIBUTION WHICH ATTENUATE NORMALLY WITH EYE OPENING. LOW-VOLTAGE 15-18 HZ ACTIVITY IS EXPRESSED IN THE FRONTAL REGIONS. MODERATE VOLTAGE 1.5-3 HZ ACTIVITY IS EXPRESSED IN THE FRONTAL REGION. THERE ARE NO FOCAL OR LATERALIZING FEATURES. NO EPILEPTIFORM ACTIVITY APPEARS. SLEEP DID NOT OCCUR. HYPERVENTILATION WAS NOT PERFORMED. PHOTIC STIMULATION PRODUCED NO DRIVING BILATERALLY. IMPRESSION: THIS IS A MILDLY ABNORMAL AWAKE ROUTINE EEG DUE TO A MILDLY SLOW BACKGROUND. THIS IS A NON-SPECIFIC FINDING INDICATING THE PRESENCE OF A MILD DIFFUSE DISTURBANCE IN CEREBRAL FUNCTION.
== END 2025-06-27 11:11 | disposition home health service (06) | DRG 101 ==
LOC: ER 18:16 → 4TH 20:51 → 3RD-ICU 23:00 → 4TH 06-26 22:36
PROVIDERS: ADMIT Internal Medicine; ATTEND Internal Medicine
DX: R56.9 Unspecified convulsions (principal); E87.20 Acidosis, unspecified; I12.9 Hypertensive chronic kidney disease with stage 1 through stage 4 chronic kidney disease, or unspecified chronic kidney disease; N18.9 Chronic kidney disease, unspecified; E11.22 Type 2 diabetes mellitus with diabetic chronic kidney disease; E11.51 Type 2 diabetes mellitus with diabetic peripheral angiopathy without gangrene; E78.5 Hyperlipidemia, unspecified; I65.02 Occlusion and stenosis of left vertebral artery; I65.23 Occlusion and stenosis of bilateral carotid arteries; J44.9 Chronic obstructive pulmonary disease, unspecified; F03.90 Unspecified dementia, unspecified severity, without behavioral disturbance, psychotic disturbance, mood disturbance, and anxiety; R55 Syncope and collapse; R29.703 NIHSS score 3; Z86.73 Personal history of transient ischemic attack (TIA), and cerebral infarction without residual deficits; Z85.118 Personal history of other malignant neoplasm of bronchus and lung; Z95.5 Presence of coronary angioplasty implant and graft; Z90.81 Acquired absence of spleen; Z85.828 Personal history of other malignant neoplasm of skin; Z23 Encounter for immunization
CPT/HCPCS: 36415; 70450; 70496; 70498; 71045; 80048; 80076; 81001; 82947; 83036; 83605; 84443; 84484; 85025; 85610; 85730; 87040; 87086; 87088; 90656; 93005; 95816; 97116; 97161; 97530; 99285; J0696; J1650; J1953; J7030; Q9967